=== PATIENT | male | born 1935 | race Caucasian/White ===

== ENCOUNTER 2016-09-24 11:17 | Emergency (ER) | payer MEDICARE, MEDICAID ==
[~2016-09-24] VITALS: Wt 52.2 kg
[~2016-09-24 11:17] MED LIST: BLOOD PRESSURE; TYLENOL
--- NOTE | 2016-09-24 12:17 | ERD ---
ER Documentation Chief Complaint Date/Time DATE: 09/24/16 TIME: 12:00 Chief Complaint r eye possible foreign body, states from wind, unknown object HPI 81 y/o male presents to ED for right eye pain started last night. Patient stated that he was outside his house when he felt like a dust came to his eyes, then he ran inside his house wash it thoroughly with water. Right eye pain was described as achy non-radiating with a pain rate of 5/10 at this time. Denies changes in his vision, blurry vision. Denies headache, loss of consciousness, dizziness, blurry vision, changes in vision, photophobia, facial pain, ear pain, throat pain, difficulty swallowing, neck pain, shoulder pain, chest pain, cough, hemoptysis, abdominal pain, back pain, loss of appetite, nausea, vomiting, hematochezia, diarrhea, constipation, urinary symptoms, bladder and bowel incontinences, extremity weakness, extremity tenderness, numbness or tingling sensation, difficulty walking, recent travel, recent exposure to illness, recent antibiotic use in the last 3 months, fever, chills. Allergy: NKA PMH: Hypertension Medications: Diovan Surgery: Prostatectomy in 2008 Family history: Denies Primary Social History: Does not work at this time Denies smoking, use of alcohol, use of illegal drugs. ROS All systems reviewed and are negative except as per history of present illness. Medications Home Meds Reported Medications [Tylenol] TAB No Conflict Check 02/18/11 [Blood Pressure] TAB No Conflict Check 02/18/11 Allergies Allergies: Coded Allergies: No Known Drug Allergies (Verified Allergy, Mild, 10/12/15) PMhx/Soc History of Surgery: Yes (PROSTATE SURGERY) Anesthesia Reaction: No Hx Neurological Disorder: No Hx Respiratory Disorders: No Hx Cardiac Disorders: Yes (HTN) Hx Psychiatric Problems: No Hx Miscellaneous Medical Probl: No Hx Alcohol Use: Yes (ON OCCASSION) Hx Substance Use: No Hx Tobacco Use: Yes (CIGARETTES 1 PPD) Smoking Status: Current some day smoker Physical Exam Vitals Vital Signs Date Time Temp Pulse Resp B/P Pulse Ox O2 Delivery O2 Flow Rate FiO2 09/24/16 11:24 98.1 88 20 174/75 95 Physical Exam CONSTITUTIONAL: Well-appearing; well-nourished; in no apparent distress. HEAD: Normocephalic; atraumatic. EYES: Conjunctiva clear, sclera non-icteric, EOM intact. PERRL. No conjunctival injection. Ears: Hearing intact. EACs clear, TMs non-bulging, non-inflamed, translucent & mobile, ossicles normal appearance, No obstructions, no erythema, no discharges Nose: No obstructions. No polyps. No external lesions. Mucosa non-inflamed. No external lesions, septum and turbinates normal. No rhinorrhea. No discharges. Frontal sinus is non-tender to palpation. Maxillary sinus is non-tender to palpation. MOUTH: Moist mucous membranes, no lesion, no obstructions, no vesicles, no thrush, patent airway Throat: Uvula in midline. Right tonsil is +1 with no erythema, no exudate. Left tonsil is +1 with no erythema, no exudate. Tolerating secretions well. Good gag reflex. Patent airway. Neck: Supple, without lesions, bruits, or adenopathy. No mass. Thyroid non- enlarged and non-tender to palpation. CHEST: Symmetrical chest. Respirations even and not labored. No retractions noted. CARDIOVASCULAR: Normal S1, S2. RRR. No murmurs, gallops. RESPIRATORY: Normal chest excursion with respiration; breath sounds clear and equal bilaterally; no wheezes, rhonchi, or rales. Breathing even and unlabored. Speaking in clear, full, and complete sentences w/ ease. ABDOMEN: Normal bowel sounds normal. Soft, round, non-distended, non-guarding, no tenderness, no rebound, no organomegaly, no masses, no pulsating abdominal mass. No hernia. No peritoneal signs. : No CVA tenderness. BACK: Symmetrical shoulder. Spine is midline without deformity, tenderness. No evidence of trauma or deformity. PELVIS: Stable pelvis. No evidence of trauma or deformity. MUSCULOSKELETAL: Normal gait and station. No misalignment, asymmetry, crepitation, defects, tenderness, masses, effusions, decreased range of motion, instability, atrophy or abnormal strength or tone in the head, neck, spine, ribs , pelvis or extremities. No calf tenderness. NEUROVASCULAR: Distal pulses are present. Pedal pulse are present, equal, and normal. Capillary refills are < 2 seconds. NEUROLOGIC: Alert and oriented x4. Speaks full and clear sentences. Cranial Nerves II-XII normal. Sensation to pain, touch, and proprioception normal. Grossly unremarkable. No neurologic deficits. Romberg test is negative. PSYCHOLOGICAL: The patients mood and manner are appropriate. No hallucinations , delusions. Not SI. Not HI. Has the capacity to decide for self SKIN: Normal for age and ethnicity; warm; dry; good turgor; no apparent lesions or exudates. No rashes, hives, discoloration. Intact. Results 24 hrs Current Medications Medications (Trade) Dose Ordered Sig/Cayla Route PRN Reason Start Time Stop Time Status Last Admin Dose Admin Tetracaine HCl (Tetracaine 0.5% Oph) 1 drop ONCE ONCE RIGHT EYE 09/24/16 12:30 09/24/16 12:31 DC Fluorescein Sodium (Qqiyq-G-Vbyoa) 1 strip ONCE ONCE RIGHT EYE 09/24/16 12:30 09/24/16 12:31 DC Procedures/MDM Examination: Unremarkable examination. Please see eye examination. Disease process, medical treatment was explained to the patient and his . They verbalized understanding and agreed with the diagnostic tests, medical treatment, and follow-up care. Treatment: Visual acuity, fluorescein, tetracaine Eye examination: Tetracaine to right eye; fluorescein staining; Stuart lamp: Revealed uptake between 8:00 and 9:00. No signs of ulceration; no signs of globe rupture. Re-evaluation: Relieve the pain. Consultation: None Differential diagnosis: Eye pain versus foreign body versus conjunctivitis versus corneal abrasion Medical decision makin81 y/o male presents to ED for right eye pain started last night. Patient stated that he was outside his house when he felt like a dust came to his eyes, then he ran inside his house wash it thoroughly with water. Right eye pain was described as achy non-radiating with a pain rate of 5 /10 at this time. Denies changes in his vision, blurry vision. Patient's complaint, presentation, my physical findings, my eye examination are consistent with my final diagnosis of Corneal abrasion. Medications prescribed are the following: Bleph-10 ophthalmic drops Patient and family member are made aware of the side effects and adverse reactions of the medications prescribed. Instructed on when to seek emergent and medical attention in case allergic/anaphylactic reactions or severe side effects and or adverse reactions to medications. Patient and family member verbalized understanding. Patient instructed Instructed to follow-up with his PCP in 24-48 hours. Instructed to Call 911 for chest pain, shortness of breath. Advised to come back here in ED as soon as possible for severity of symptoms which includes but not limited to: any new symptoms; shortness of breath/difficulty of breathing; cardiovascular changes; severe gastrointestinal symptoms; signs and symptoms of bleeding and or infection; signs of compartment syndrome/neurovascular changes; neurological changes/deficits. Patient and family member verbalized understanding. Upon discharge, patient is alert and oriented x 4, speaks full and clear sentences, denies pain, has no neurological deficits, has no neurovascular deficits, difficulty of breathing. Breathing even and unlabored. Lung sounds are clear to auscultation. Not in distress. Appears comfortable. Ambulatory with steady gait. Appears satisfied with care provided here in ED. Departure Diagnosis: Primary Impression: Corneal abrasion Encounter type: initial encounter Laterality: right Qualified Code: S05.01XA - Corneal abrasion, right, initial encounter Condition: Good Additional Instructions: Follow-up with PCP in 24-48 hours. PCP to refer patient to an eyelet maker if symptoms get worse. MAHNAZ DIAS Sep 24, 2016 12:17
[2016-09-24] MEDS ORDERED: FLUORESCEIN STRIP RIGHT EYE ONE (12:30)
[2016-09-24] MEDS ORDERED: TETRACAINE 0.5% 15 ML OPH RIGHT EYE ONE (12:30)
[2016-09-24] MEDS ORDERED: SULF15DR19 RIGHT EYE (12:41)
== END 2016-09-24 12:50 | disposition home or self-care (01) ==
LOC: FTE 11:17
DX: S05.01XA Injury of conjunctiva and corneal abrasion without foreign body, right eye, initial encounter (principal); I10 Essential (primary) hypertension; F17.210 Nicotine dependence, cigarettes, uncomplicated; X58.XXXA Exposure to other specified factors, initial encounter; Y92.9 Unspecified place or not applicable
CPT/HCPCS: 99283

== ENCOUNTER 2017-01-30 11:41 | Emergency (ER) | payer MEDICARE, OTHER ==
[~2017-01-30] VITALS: Ht 160 cm; Wt 49.0 kg
[~2017-01-30 11:41] MED LIST changes: +SULF15DR19 RIGHT EYE
[2017-01-30 12:11] VITALS: Ht 160 cm; Wt 49.0 kg
[2017-01-30] MEDS ORDERED: SOD CHLORIDE 0.9% 1,000 ML IV STA (12:51)
[2017-01-30 13:04] LABS: ADD SCAN DIFF NO
[2017-01-30 13:05] LABS: BASOPHIL # 0.1 10^3/ul (0.0-0.1); BASOPHILS % 0.7 % (0.0-2.0); EOSINOPHILS # 0.2 10^3/ul (0.0-0.5); EOSINOPHILS % 2.1 % (0.0-7.0); HEMATOCRIT 44.7 % (42.0-52.0); HEMOGLOBIN 14.7 g/dl (14.0-18.0); LYMPHOCYTES # 1.1 10^3/ul (0.8-2.9); MEAN CORPUSCULAR HEMOGLOBIN 30.2 pg (29.0-33.0); MEAN CORPUSCULAR HGB CONC 32.9 g/dl (32.0-37.0); MEAN PLATELET VOLUME 8.9 fl (7.4-10.4); MONOCYTE # 0.9 10^3/ul (0.3-0.9); MONOCYTES % 9.8 % (0.0-11.0); NEUTROPHIL # 6.8 10^3/ul (1.6-7.5); NEUTROPHILS % 74.9 % (39.0-77.0); PLATELET COUNT 358 10^3/UL (140-415); RED BLOOD COUNT 4.86 10^6/ul (4.70-6.10); RED CELL DISTRIBUTION WIDTH 13.4 % (11.5-14.5); WHITE BLOOD COUNT 9.1 10^3/ul (4.8-10.8)
[2017-01-30] MEDS ORDERED: BENHCT2012 PO (13:22)
[2017-01-30 13:23] LABS: ALBUMIN 4.5 g/dl (3.3-4.9); ALBUMIN/GLOBULIN RATIO 1.12; BILIRUBIN,INDIRECT 0.2 mg/dl (0-1.1); BILIRUBIN,TOTAL 0.2 mg/dl (0.2-1.3); CALCIUM 9.6 mg/dl (8.4-10.2); CREATININE 0.97 mg/dl (0.61-1.24); TOTAL PROTEIN 8.5 g/dl (6.1-8.1)
[2017-01-30] MEDS ORDERED: PENT400T2 PO (13:23)
[2017-01-30] MEDS ORDERED: METO50TA16 PO (13:23)
[2017-01-30] MEDS ORDERED: MELO-109 PO (13:23)
[2017-01-30] MEDS ORDERED: DONE5TAB32 PO (13:23)
[2017-01-30] MEDS ORDERED: OMEP20CA16 PO (13:24)
--- NOTE | 2017-01-30 13:28 | RADRPT ---
PROCEDURE: XR Chest. CLINICAL INDICATION: Chest pain TECHNIQUE: Single frontal view of the chest was obtained. COMPARISON: None FINDINGS: The heart is within normal limits. The thoracic aorta is calcified. The lungs are clear. There is no pleural effusion or pneumothorax. RPTAT: AA IMPRESSION: No acute disease. Calcified aorta consistent with atherosclerotic disease. .Davis Harris MD, MD Date Time Electronically viewed and signed by .Davis Harris MD, on 01/30/2017 13:28 .S/
[2017-01-30 13:34] LABS: TROPONIN-I 0.016 ng/ml (0.00-0.12)
--- NOTE | 2017-01-30 14:54 | ERD ---
ER Documentation Chief Complaint Date/Time DATE: 01/30/17 TIME: 12:45 Chief Complaint fever, diaphretic, cough, congestion & headache x10 days HPI 81-year-old male history of hypertension and prostatism ambulatory to the ED complaining of a 5 day history of subjective fevers with sweats, chest congestion and cough productive of greenish sputum. He denies chest pain, palpitation, shortness of breath, PND, orthopnea or exertional dyspnea. Anorexia with decreased oral intake but no abdominal pain, nausea, vomiting, diarrhea or constipation. No hematemesis, hematochezia or melanotic stools. No leg pain or swelling. Mild nasal congestion but no purulent rhinorrhea. No odynophagia or dysphagia. No dysuria, polyuria or hematuria. No relieving or exacerbating factors. No ill contacts or recent travel. In triage complained of headache but currently denies headache, visual changes, focal weakness or numbness. No neck or back pain. ROS All systems reviewed and are negative except as per history of present illness. Medications Home Meds Active Scripts Azithromycin* (Zithromax*) 250 Mg Tablet, 250 MG PO .ZPACK DIRECTED, #6 TAB TAKE 500 MG (2 TABS) THE FIRST DAY THEN 250 MG (1 TAB) DAYS 2-5 Prov:ALEK CHARLES MD 01/30/17 Reported Medications Omeprazole* (Omeprazole*) 20 Mg Capsule.dr, 20 MG PO DAILY, #30 CAP 01/30/17 Donepezil* (Aricept*) 5 Mg Tablet, 5 MG PO DAILY, TAB 01/30/17 Meloxicam* (Meloxicam*) 7.5 Mg Tablet, 7.5 MG PO DAILY, #30 TAB 01/30/17 Metoprolol Succinate* (Toprol XL*) 50 Mg Tab.er.24h, 50 MG PO DAILY, #30 TAB 01/30/17 Pentoxifylline* (Pentoxifylline*) 400 Mg Tablet.sa, 400 MG PO TID, TAB 01/30/17 Olmesartan-Hydrochlorothiazide (Benicar HCT) 20-12.5 Mg Tablet, 2 TAB PO DAILY, #30 TAB 01/30/17 Discontinued Reported Medications [Tylenol] TAB No Conflict Check 02/18/11 [Blood Pressure] TAB No Conflict Check 02/18/11 Discontinued Scripts Sulfacetamide Sodium* (Bleph-10*) 10%-15 Ml Opht Drops, 1 DROP RIGHT EYE Q2H for 7 Days, #1 EA Prov:MAHNAZ DIAS 09/24/16 Allergies Allergies: Coded Allergies: No Known Drug Allergies (Verified Allergy, Mild, 10/12/15) PMhx/Soc Reviewed in chart, as per HPI History of Surgery: Yes (PROSTATE SURGERY) Anesthesia Reaction: No Hx Neurological Disorder: No Hx Respiratory Disorders: No Hx Cardiac Disorders: Yes (HTN) Hx Psychiatric Problems: No Hx Miscellaneous Medical Probl: No Hx Alcohol Use: Yes (ON OCCASSION) Hx Substance Use: No Hx Tobacco Use: Yes (CIGARETTES 1 PPD) Smoking Status: Current every day smoker FmHx No stroke or cancer Physical Exam Vitals Vital Signs Date Time Temp Pulse Resp B/P Pulse Ox O2 Delivery O2 Flow Rate FiO2 01/30/17 15:53 97.9 97 18 169/98 98 Room Air 01/30/17 14:00 102 18 171/94 98 High Flow 01/30/17 12:11 97.9 126 20 132/92 95 Physical Exam Const: Alert, No acute distress Head: Atraumatic Eyes: CLIFF, EOMI, Normal Conjunctiva ENT: Normal External Ears, Nose and Mouth. Neck: Full range of motion. No JVD. No lymphadenopathy or tenderness. Resp: Breath sounds are equal bilaterally. Rare, scattered rhonchi but no wheezes or rales. Cardio: Tachycardia. Regular rate and rhythm, no murmurs Abd: Soft, non tender, non distended. Normal bowel sounds no masses or abnormal pulsations. No rebound or guarding. Skin: No petechiae or rashes Back: No midline or flank tenderness Ext: No cyanosis, or edema. No calf swelling or tenderness. Neur: Awake and alert. No focal deficit observed. Psych: Normal Mood and Affect Result Diagram: 01/30/17 1255 01/30/17 1255 Results 24 hrs Laboratory Tests Test 01/30/17 12:55 White Blood Count 9.110^3/ul Red Blood Count 4.8610^6/ul Hemoglobin 14.7g/dl Hematocrit 44.7% Mean Corpuscular Volume 92.0fl Mean Corpuscular Hemoglobin 30.2pg Mean Corpuscular Hemoglobin Concent 32.9g/dl Red Cell Distribution Width 13.4% Platelet Count 16358^3/UL Mean Platelet Volume 8.9fl Neutrophils % 74.9% Lymphocytes % 12.0% Monocytes % 9.8% Eosinophils % 2.1% Basophils % 0.7% Nucleated Red Blood Cells % 0.0/100WBC Neutrophils # 6.810^3/ul Lymphocytes # 1.110^3/ul Monocytes # 0.910^3/ul Eosinophils # 0.210^3/ul Basophils # 0.110^3/ul Nucleated Red Blood Cells # 0.010^3/ul Sodium Level 144mmol/L Potassium Level 4.0mmol/L Chloride Level 104mmol/L Carbon Dioxide Level 30mmol/L Anion Gap 14 Blood Urea Nitrogen 16mg/dl Creatinine 0.97mg/dl Glucose Level 102mg/dl Calcium Level 9.6mg/dl Total Bilirubin 0.2mg/dl Direct Bilirubin 0.00mg/dl Indirect Bilirubin 0.2mg/dl Aspartate Amino Transf (AST/SGOT) 23IU/L Alanine Aminotransferase (ALT/SGPT) 33IU/L Alkaline Phosphatase 92IU/L Troponin I 0.016ng/ml Total Protein 8.5g/dl Albumin 4.5g/dl Globulin 4.00g/dl Albumin/Globulin Ratio 1.12 Current Medications Medications (Trade) Dose Ordered Sig/Cayla Route PRN Reason Start Time Stop Time Status Last Admin Dose Admin Sodium Chloride (NS) 1,000 ml @ 1,000 mls/hr Q1H STAT IV 01/30/17 12:51 01/30/17 13:50 DC 01/30/17 12:57 EKG: TIME: 12:57. Sinus tachycardia with PACs. Nonspecific T-wave changes. LVH. No acute ST segment elevation or depression. EP Interpretation: Abnormal EKG. EKG: TIME: 14:31. Sinus rhythm with sinus arrhythmia. Ventricular rate 97. LVH with repull. No acute ST segment elevation or depression. No axis deviation EP Interpretation: Abnormal EKG. IMAGING: PROCEDURE: XR Chest. CLINICAL INDICATION: Chest pain TECHNIQUE: Single frontal view of the chest was obtained. COMPARISON: None FINDINGS: The heart is within normal limits. The thoracic aorta is calcified. The lungs are clear. There is no pleural effusion or pneumothorax. RPTAT: AA IMPRESSION: No acute disease. Calcified aorta consistent with atherosclerotic disease. .Davis Harris MD, MD Date Time Electronically viewed and signed by .Davis Harris MD, on 01/30/2017 13: 28 .S/ Procedures/MDM DOCUMENTS REVIEWED: ED nurse, prior records REEXAMINATION/REEVALUATION: Time: 14:30. Doing well. Feels much better after normal saline 1 L. Lungs clear. Heart rate 95. SMOKING CESSATION: Over 3 minutes were spent in smoking cessation counseling. Discussed increased risks of stroke, vascular disease, OR and cancer as well as multiple strategies for cessation including nicotine replacement medications. MEDICAL DECISION MAKIN-year-old male history of hypertension and prostatism ambulatory to the ED complaining of a 5 day history of subjective fevers with sweats, chest congestion and cough productive of greenish sputum. No chest pain, ischemic EKG changes, elevated troponin or evidence of acute coronary syndrome. Sinus tachycardia improved with intravenous hydration. No radiographic evidence of pneumonia or pneumothorax. Doubt pulmonary embolism. No hypoxia, bronchospasm or wheezing. Presentation consistent with an acute febrile illness possibly viral versus bacterial bronchitis. An occult malignancy is considered especially in light of his long smoking history, further workup indicated if symptoms do not resolve after trial of oral antibiotics. Stable for discharge with precautionary instructions and outpatient follow-up as counseled. Counseled patient regarding diagnostic workup, diagnosis and need for followup. Understands to return to ED if symptoms recur, worsen or any other concerns. Departure Diagnosis: Primary Impression: Cough Additional Impressions: Bronchitis Uncontrolled hypertension Condition: Stable (Improved) ALEK CHARLES MD Jan 30, 2017 14:50
[2017-01-30] MEDS ORDERED: AZIT250T94 PO (14:55)
[2017-01-30 15:53] VITALS: BP 169/98; PULSE 97; RESP 18; TEMP 97.9
== END 2017-01-30 15:54 | disposition home or self-care (01) ==
LOC: E/R 11:41
DX: R05 Cough (principal); J20.9 Acute bronchitis, unspecified; I10 Essential (primary) hypertension; R40.2142 Coma scale, eyes open, spontaneous, at arrival to emergency department; R40.2252 Coma scale, best verbal response, oriented, at arrival to emergency department; R40.2362 Coma scale, best motor response, obeys commands, at arrival to emergency department; F17.210 Nicotine dependence, cigarettes, uncomplicated
CPT/HCPCS: 71010; 80053; 84484; 85025; 93005; 99285; J7030

== ENCOUNTER 2017-11-12 13:09 | Emergency (ER) | END 2017-11-12 15:15 | disposition left against medical advice (07) ==

== ENCOUNTER 2018-02-03 07:56 | Emergency (ER) | END 2018-02-03 11:55 | disposition home or self-care (01) ==

== ENCOUNTER 2018-03-08 09:19 | Emergency (ER) | END 2018-03-08 12:15 | disposition home or self-care (01) ==

== ENCOUNTER 2018-10-28 11:16 | Inpatient (IN) | payer MEDICARE, OTHER ==
[~2018-10-28] VITALS: Ht 152.4 cm; Wt 57.3 kg
[~2018-10-28 11:16] MED LIST changes: +ACET500C5 PO; +AZIT250T PO; +BENHCT2012 PO; -BLOOD PRESSURE; +DONE5TAB53 PO; +MELO7.5T38 PO; +METO-319 PO; +OMEP20CA16 PO; +PENT400T9 PO; -SULF15DR19 RIGHT EYE; +TRAM50TA2 PO; -TYLENOL
[2018-10-28 11:19] VITALS: Ht 152.4 cm; Wt 57.3 kg
[2018-10-28] MEDS ORDERED: SOD CHLORIDE 0.9% 1,000 ML IV STA (11:32)
[2018-10-28] MEDS ORDERED: KETOROLAC 15 MG INJ IV STA (11:32)
[2018-10-28] MEDS ORDERED: HYDROmorphONE 2 MG/ML SYG IV STA (13:52)
[2018-10-28] MEDS ORDERED: ONDANSETRON 4 MG INJ IV PRN (14:00)
[2018-10-28] MEDS ORDERED: ACETAMINOPHEN 325 MG TAB PO PRN (14:00)
--- NOTE | 2018-10-28 14:01 | ERD ---
ER Documentation Chief Complaint Chief Complaint Left leg pain, calf pain started suddenly this morning HPI Patient is an 83-year-old male with hypertension who presents with left-sided ankle and calf pain. He was brought in by ambulance. He said the pain started today. He said that the pain is severe in the left lower extremity. He has had no treatment as of yet. The pain is constant. ROS All systems reviewed and are negative except as per history of present illness. Medications Home Meds Active Scripts Acetaminophen* (Tylophen*) 500 Mg Capsule, 1 CAP PO Q6H PRN for PAIN AND OR ELEVATED TEMP, #30 CAP Prov:MARIBEL DUVALL PA-C 03/08/18 Tramadol HCl (Tramadol HCl) 50 Mg Tablet, 50 MG PO Q6 PRN for PAIN, #20 TAB Prov:MARIBEL DUVALLC 03/08/18 Meloxicam* (Meloxicam*) 7.5 Mg Tablet, 7.5 MG PO DAILY, #30 TAB Prov:CAPRICE LIVINGSTONC 02/03/18 Azithromycin* (Zithromax*) 250 Mg Tablet, 250 MG PO .ZPACK DIRECTED, #6 TAB TAKE 500 MG (2 TABS) THE FIRST DAY THEN 250 MG (1 TAB) DAYS 2-5 Prov:ALEK CHARLES MD 01/30/17 Reported Medications Omeprazole* (Omeprazole*) 20 Mg Capsule.dr, 20 MG PO DAILY, #30 CAP 01/30/17 Donepezil* (Aricept*) 5 Mg Tablet, 5 MG PO DAILY, TAB 01/30/17 Meloxicam* (Meloxicam*) 7.5 Mg Tablet, 7.5 MG PO DAILY, #30 TAB 01/30/17 Metoprolol Succinate* (Toprol XL*) 50 Mg Tab.er.24h, 50 MG PO DAILY, #30 TAB 01/30/17 Pentoxifylline* (Pentoxifylline*) 400 Mg Tablet.sa, 400 MG PO TID, TAB 01/30/17 Olmesartan-Hydrochlorothiazide (Benicar HCT) 20-12.5 Mg Tablet, 2 TAB PO DAILY, #30 TAB 01/30/17 Allergies Allergies: Coded Allergies: No Known Drug Allergies (Verified Allergy, Mild, 10/12/15) PMhx/Soc History of Surgery: Yes (PROSTATE SURGERY) Anesthesia Reaction: No Hx Neurological Disorder: No Hx Respiratory Disorders: No Hx Cardiac Disorders: Yes (HTN) Hx Psychiatric Problems: No Hx Miscellaneous Medical Probl: No Hx Alcohol Use: Yes (ON OCCASSION) Hx Substance Use: No Hx Tobacco Use: Yes (20 CIGS/DAY) Smoking Status: Current every day smoker FmHx Family History: No diabetes Physical Exam Vitals Vital Signs Date Temp Pulse Resp B/P (MAP) Pulse Ox O2 O2 Flow FiO2 Time Delivery Rate 10/28/18 98.1 80 18 150/90 100 11:19 (110) Physical Exam Const: No acute distress Head: Atraumatic Eyes: Normal Conjunctiva ENT: Normal External Ears, Nose and Mouth. Neck: Full range of motion. No meningismus. Resp: Clear to auscultation bilaterally Cardio: Regular rate and rhythm, no murmurs Abd: Soft, non tender, non distended. Normal bowel sounds Skin: No petechiae or rashes Back: No midline or flank tenderness Ext: Unable to palpate a dorsalis pedis pulse to the left foot, capillary refill is sluggish on the left foot Neur: Awake and alert Psych: Normal Mood and Affect Result Diagram: 10/28/18 1204 10/28/18 1204 Results 24 hrs Laboratory Tests Test 10/28/18 12:04 White Blood Count 11.6 10^3/ul Red Blood Count 4.71 10^6/ul Hemoglobin 13.9 g/dl Hematocrit 42.6 % Mean Corpuscular Volume 90.4 fl Mean Corpuscular Hemoglobin 29.5 pg Mean Corpuscular Hemoglobin Concent 32.6 g/dl Red Cell Distribution Width 13.2 % Platelet Count 191 10^3/UL Mean Platelet Volume 9.9 fl Immature Granulocytes % 0.500 % Neutrophils % 88.0 % Lymphocytes % 6.7 % Monocytes % 4.2 % Eosinophils % 0.3 % Basophils % 0.3 % Nucleated Red Blood Cells % 0.0 /100WBC Immature Granulocytes # 0.060 10^3/ul Neutrophils # 10.2 10^3/ul Lymphocytes # 0.8 10^3/ul Monocytes # 0.5 10^3/ul Eosinophils # 0.0 10^3/ul Basophils # 0.0 10^3/ul Nucleated Red Blood Cells # 0.0 10^3/ul Sodium Level 140 mmol/L Potassium Level 5.1 mmol/L Chloride Level 103 mmol/L Carbon Dioxide Level 28 mmol/L Anion Gap 9 Blood Urea Nitrogen 27 mg/dl Creatinine 1.62 mg/dl Est Glomerular Filtrat Rate mL/min mL/min Glucose Level 123 mg/dl Calcium Level 9.5 mg/dl Current Medications Medications Dose Sig/Cayla Start Time Status Last (Trade) Ordered Route PRN Stop Time Admin Dose Reason Admin Sodium 1,000 ml @ Q1H STAT 10/28/18 DC 10/28/18 Chloride 1,000 mls/hr IV 11:32 10/28/18 12:00 12:31 Ketorolac 15 mg ONCE STAT 10/28/18 DC 10/28/18 Tromethamine IV 11:32 10/28/18 12:00 (Toradol) 11:35 Ondansetron 4 mg BRIDGE ORDER 10/28/18 HCl (Zofran PRN IV 14:00 10/29/18 Inj) NAUSEA/VOMITI 13:59 NG 650 mg ER BRIDGE 10/28/18 Acetaminophen PRN PO 14:00 10/29/18 (Tylenol .MILD PAIN 13:59 Tab) 1-3 OR TEMP 1 mg ONCE STAT 10/28/18 DC Hydromorphone IV 13:52 10/28/18 HCl 13:54 (Dilaudid) Procedures/MDM Arterial ultrasound read by radiology shows no DP pulse and weak PT pulse. Smoking Cessation Therapy: Pt. was lectured for greater than 3 minutes on the health risks of continued smoking and the benefits of cessation. Patient is a 83-year-old male with hypertension and smoking who presents with left leg pain. I believe he is having acute arterial insufficiency with claudication. The patient will need vascular consultation. I have reached out to Dr. Canseco from vascular surgery via phone and [employer]. The patient will be admitted to the care of Dr. Hughes to a medical surgical bed. The patient has required narcotic pain medication to help control his pain. Departure Diagnosis: Primary Impression: Arterial insufficiency Additional Impressions: Pain of left leg Claudication Condition: ANTHONY Yao MD Oct 28, 2018 14:01
[2018-10-28] MEDS ORDERED: HEPARIN 1000 UNITS/ML 10 ML INJ IV PRN ×2 (15:00)
[2018-10-28] MEDS ORDERED: HEPARIN 1000 UNITS/ML 10 ML INJ IV ONE (15:00)
[2018-10-28] MEDS ORDERED: NACL 0.9% 3 ML SYG IV SCH (15:30)
--- NOTE | 2018-10-28 15:34 | HP ---
Date/Time of Note Date/Time of Note DATE: 10/28/18 TIME: 15:19 Assessment/Plan VTE Prophylaxis Pharmacological prophylaxis: heparin Lines/Catheters IV Catheter Type (from Nrs): Peripheral IV Assessment/Plan Hospital Course This is an 83-year-old male with a history of hypertension and tobacco use disorder who presents with acute left lower extremity ischemia Acute limb ischemia: -JUANJO is 0.3 and he is having rest pain. - I have started him on a heparin drip. CT angiography -Continue aspirin - I have contacted Jack Piña, Jeanne, and Regis and all are unfortunately unable to see the patient today. I am attempting to find another vascular surgeon to see him but have so far been unsuccessful MARTHA: - Hold further NSAIDs - Monitor creatinine Hypertension: - Hold home meds for now Result Diagram: 10/28/18 1204 10/28/18 1204 Results 24hrs Laboratory Tests Test 10/28/18 12:04 White Blood Count 11.6 #H Red Blood Count 4.71 Hemoglobin 13.9 L Hematocrit 42.6 Mean Corpuscular Volume 90.4 Mean Corpuscular Hemoglobin 29.5 Mean Corpuscular Hemoglobin Concent 32.6 Red Cell Distribution Width 13.2 Platelet Count 191 # Mean Platelet Volume 9.9 Immature Granulocytes % 0.500 H Neutrophils % 88.0 H Lymphocytes % 6.7 L Monocytes % 4.2 Eosinophils % 0.3 Basophils % 0.3 Nucleated Red Blood Cells % 0.0 Immature Granulocytes # 0.060 H Neutrophils # 10.2 H Lymphocytes # 0.8 Monocytes # 0.5 Eosinophils # 0.0 Basophils # 0.0 Nucleated Red Blood Cells # 0.0 Sodium Level 140 Potassium Level 5.1 Chloride Level 103 Carbon Dioxide Level 28 Anion Gap 9 Blood Urea Nitrogen 27 H Creatinine 1.62 H Est Glomerular Filtrat Rate mL/min Glucose Level 123 Calcium Level 9.5 HPI/ROS Admit Date/Time Admit Date/Time Hx of Present Illness This is an 83-year-old male with a history of hypertension who presents with acute pain in his left foot and calf pain. He was in his usual state of health until today. He was walking when he began to feel the acute onset of throbbing pain in his foot which then progressed up into his calf came to the ED. Here he was found to have pulseless foot. He has never complained of claudication or any similar symptoms before. There is no trauma to his affected extremity he received Dilaudid and now feels much better. ROS Constitutional: no complaints, improved Eyes: no complaints ENT: no complaints Respiratory: no complaints Cardiovascular: no complaints Gastrointestinal: no complaints Genitourinary: no complaints Musculoskeletal: no complaints Skin: no complaints Neurologic: no complaints Endocrine: no complaints Lymphatic: no complaints Psychological: no complaints, nl mood/affect Immunologic: no complaints PMH/Family/Social Past Medical History Medical History: hypertension Medications Current Medications Ondansetron HCl (Zofran Inj) 4 mg BRIDGE ORDER PRN IV NAUSEA/VOMITING; Start 10/28/18 at 14:00; Stop 10/29/18 at 13:59 Acetaminophen (Tylenol Tab) 650 mg ER BRIDGE PRN PO .MILD PAIN 1-3 OR TEMP; Start 10/28/18 at 14:00; Stop 10/29/18 at 13:59 Heparin Sodium (Porcine) (Heparin (1000 Units/ml)) 4,400 unit PER PROTOCOL PRN IV aPTT<47; Start 10/28/18 at 15:00 Heparin Sodium (Porcine) (Heparin (1000 Units/ml)) 2,200 unit PER PROTOCOL PRN IV aPTT<47-57; Start 10/28/18 at 15:00 Heparin Sodium (Porcine) 250 ml @ 0 mls/hr PER PROTOCOL IV ; Start 10/28/18 at 15:00 Coded Allergies: No Known Drug Allergies (Verified Allergy, Mild, 10/12/15) Past Surgical History Past Surgical Hx: no surgical history Family History Significant Family History: no pertinent family hx Social History Alcohol Use: none Smoking Status: Current every day smoker Drug Use: none Exam/Review of Systems Vital Signs Vitals Vital Signs Date Temp Pulse Resp B/P (MAP) Pulse Ox O2 O2 Flow FiO2 Time Delivery Rate 10/28/18 98.1 84 17 175/97 100 Room Air 14:08 (123) Exam Exam Left foot is quite cold compared to right foot. I do not feel any PT or DP pulses there and Refill is slow Constitutional: alert, oriented, well developed Psych: no complaints, nl mood/affect Head: normocephalic, atraumatic Respiratory: clear to auscultation, normal air movement Cardiovascular: regular rate and rhythm, other Gastrointestinal: soft, nl liver, spleen, non-tender Musculoskeletal: nl extremities to inspection Neurological: VICE CHANCELLOR II-XII intact, nl mental status, nl speech, nl strength BLANCA RANDALL MD Oct 28, 2018 15:30
[2018-10-28] MEDS: HEPARIN 25000 UNITS/250 ML 250 ML IV SCH ×2 (15:47→22:45)
[2018-10-28 16:30] VITALS: BP 195/95; PULSE 91; RESP 16
[2018-10-28 16:47] VITALS: BP 195/95; PULSE 81; RESP 18
[2018-10-28 17:19] VITALS: BP 161/77; PULSE 80; RESP 17
[2018-10-28 19:56] VITALS: BP_SYST 168; BP_SYST 185; BP_DIAS 90; BP_DIAS 91; PULSE 81; RESP 18
[2018-10-28] MEDS ORDERED: SOD CHLORIDE 0.9% 100 ML ONE (20:22)
[2018-10-28] MEDS ORDERED: IODIXANOL LOCM 100 ML BTL ONE (20:22)
[2018-10-28] MEDS: PENTOXIFYLLINE (SR) 400 MG TAB PO SCH (21:19)
[2018-10-29 01:00] VITALS: BP 159/85; PULSE 71; RESP 18
[2018-10-29] MEDS: HEPARIN 25000 UNITS/250 ML 250 ML IV SCH ×2 (07:06→19:48)
[2018-10-29 08:01] VITALS: BP 166/81; PULSE 64; RESP 18
[2018-10-29] MEDS: ASPIRIN 81 MG TAB PO SCH (08:53)
[2018-10-29] MEDS: METOPROLOL (XL) 50 MG TAB PO SCH (08:53)
[2018-10-29] MEDS: PENTOXIFYLLINE (SR) 400 MG TAB PO SCH ×3 (08:53→21:02)
[2018-10-29] MEDS ORDERED: INFLUENZA VIRUS VACCINE 0.5 ML (DISPENSING) IM* ONE (09:00)
[2018-10-29] MEDS ORDERED: SOD CHLORIDE 0.9% 1,000 ML IV ONE (11:00)
[2018-10-29 14:31] VITALS: BP 143/67; PULSE 64; RESP 18
--- NOTE | 2018-10-29 14:38 | PN ---
Date/Time of Note Date/Time of Note DATE: 10/29/18 TIME: 14:37 Assessment/Plan VTE Prophylaxis Risk score (from Ns)>0 risk: 4 SCD applied (from Nsg): Yes Pharmacological prophylaxis: heparin Lines/Catheters IV Catheter Type (from Nrsg): Peripheral IV Assessment/Plan Hospital Course This is an 83-year-old male with a history of hypertension and tobacco use disorder who presents with acute left lower extremity ischemia Acute limb ischemia: -JUANJO is 0.3 and he is having rest pain. - Continue heparin drip. CT angiography shows stenosis in calf vessels, but no proximal obstruction -Continue aspirin - Pain control MARTHA: - Hold further NSAIDs - Monitor creatinine Hypertension: - Hold home meds for now Result Diagram: 10/28/18 2149 10/29/18 0444 Results 24hrs Laboratory Tests Test 10/28/18 21:49 10/29/18 04:44 10/29/18 12:43 White Blood Count 7.5 # Red Blood Count 4.08 L Hemoglobin 12.0 L Hematocrit 36.3 L Mean Corpuscular Volume 89.0 Mean Corpuscular Hemoglobin 29.4 Mean Corpuscular Hemoglobin Concent 33.1 Red Cell Distribution Width 13.5 Platelet Count 167 Mean Platelet Volume 10.2 Immature Granulocytes % 0.300 Neutrophils % 68.7 Lymphocytes % 20.2 Monocytes % 8.0 Eosinophils % 2.1 Basophils % 0.7 Nucleated Red Blood Cells % 0.0 Immature Granulocytes # 0.020 Neutrophils # 5.2 Lymphocytes # 1.5 Monocytes # 0.6 Eosinophils # 0.2 Basophils # 0.1 Nucleated Red Blood Cells # 0.0 Activated Partial Thromboplast Time 103.4 *H 135.9 *H 122.7 *H Prothrombin Time 14.8 Prothrombin Time Ratio 1.2 INR International Normalized Ratio 1.15 Sodium Level 138 Potassium Level 4.6 Chloride Level 104 Carbon Dioxide Level 27 Anion Gap 7 Blood Urea Nitrogen 27 H Creatinine 1.54 H Est Glomerular Filtrat Rate mL/min Glucose Level 86 Hemoglobin A1c 5.3 Calcium Level 8.7 Subjective 24 Hr Interval Summary Free Text/Dictation Still wtih pain in foot Seen by Dr Waite. No immediate need for surgery Continues on heparin Exam/Review of Systems Exam Vitals Vital Signs Date Temp Pulse Resp B/P (MAP) Pulse Ox O2 O2 Flow FiO2 Time Delivery Rate 10/29/18 98.2 64 18 143/67 96 14:31 (92) 10/28/18 Room Air 17:19 Intake and Output 10/28/18 10/28/18 10/29/18 1414:59 22:59 06:59 IntakeIntake Total 420 ml 105.7 ml BalanceBalance 420 ml 105.7 ml Exam Foot remains cold Sensory in tact Results Results 24hrs Laboratory Tests Test 10/28/18 21:49 10/29/18 04:44 10/29/18 12:43 White Blood Count 7.5 # Red Blood Count 4.08 L Hemoglobin 12.0 L Hematocrit 36.3 L Mean Corpuscular Volume 89.0 Mean Corpuscular Hemoglobin 29.4 Mean Corpuscular Hemoglobin Concent 33.1 Red Cell Distribution Width 13.5 Platelet Count 167 Mean Platelet Volume 10.2 Immature Granulocytes % 0.300 Neutrophils % 68.7 Lymphocytes % 20.2 Monocytes % 8.0 Eosinophils % 2.1 Basophils % 0.7 Nucleated Red Blood Cells % 0.0 Immature Granulocytes # 0.020 Neutrophils # 5.2 Lymphocytes # 1.5 Monocytes # 0.6 Eosinophils # 0.2 Basophils # 0.1 Nucleated Red Blood Cells # 0.0 Activated Partial Thromboplast Time 103.4 *H 135.9 *H 122.7 *H Prothrombin Time 14.8 Prothrombin Time Ratio 1.2 INR International Normalized Ratio 1.15 Sodium Level 138 Potassium Level 4.6 Chloride Level 104 Carbon Dioxide Level 27 Anion Gap 7 Blood Urea Nitrogen 27 H Creatinine 1.54 H Est Glomerular Filtrat Rate mL/min Glucose Level 86 Hemoglobin A1c 5.3 Calcium Level 8.7 Medications Medication Current Medications Heparin Sodium (Porcine) (Heparin (1000 Units/ml)) 4,400 unit PER PROTOCOL PRN IV aPTT<47; Start 10/28/18 at 15:00 Heparin Sodium (Porcine) (Heparin (1000 Units/ml)) 2,200 unit PER PROTOCOL PRN IV aPTT<47-57; Start 10/28/18 at 15:00 Heparin Sodium (Porcine) 250 ml @ 0 mls/hr PER PROTOCOL IV Last administered on 10/28/18at 22:45; Admin Dose 9.5 MLS/HR; Start 10/28/18 at 15:00 IV Flush (NS 3 ml) 3 ml PER PROTOCOL IV ; Start 10/28/18 at 15:30 Hydromorphone HCl (Dilaudid) 0.5 mg Q4H PRN IV .SEVERE PAIN 7-10; Start 10/28/18 at 15:30 Metoprolol Succinate (Toprol Xl) 50 mg DAILY PO Last administered on 10/29/18at 08:53; Admin Dose 50 MG; Start 10/29/18 at 09:00 Pentoxifylline (Trental) 400 mg TID PO Last administered on 10/29/18at 13:50; Admin Dose 400 MG; Start 10/28/18 at 21:00 Tramadol HCl (Ultram) 50 mg Q6H PRN PO PAIN; Start 10/28/18 at 16:00 Aspirin (Aspirin) 81 mg DAILY PO Last administered on 10/29/18at 08:53; Admin Dose 81 MG; Start 10/29/18 at 09:00 BLANCA RANDALL MD Oct 29, 2018 14:38
[2018-10-29 19:40] VITALS: BP 176/95; PULSE 66; RESP 18
[2018-10-30 01:11] VITALS: BP 178/90; PULSE 77; RESP 18
[2018-10-30 06:14] VITALS: BP 155/89; PULSE 82
[2018-10-30 07:10] VITALS: BP 190/100; PULSE 68; RESP 20
[2018-10-30] MEDS: PENTOXIFYLLINE (SR) 400 MG TAB PO SCH ×3 (08:13→21:39)
[2018-10-30] MEDS: METOPROLOL (XL) 50 MG TAB PO SCH (08:13)
[2018-10-30] MEDS: ASPIRIN 81 MG TAB PO SCH (08:14)
[2018-10-30] MEDS: AMLODIPINE 5 MG TAB PO SCH (08:14)
[2018-10-30 10:00] VITALS: BP 159/92; PULSE 66
[2018-10-30] MEDS: traMADol 50 MG TAB PO PRN ×2 (12:04→22:50)
--- NOTE | 2018-10-30 13:14 | PN ---
Date/Time of Note Date/Time of Note DATE: 10/30/18 TIME: 13:12 Assessment/Plan VTE Prophylaxis Risk score (from Nsg)>0 risk: 7 SCD applied (from Nsg): Yes Pharmacological prophylaxis: heparin Lines/Catheters IV Catheter Type (from Nrsg): Peripheral IV Assessment/Plan Hospital Course This is an 83-year-old male with a history of hypertension and tobacco use disorder who presents with L calf pain concerning for acute left lower extremity ischemia L calf pain: - Foot is now warm and seem well perfused - His calf muscle is now quite indurated and firm. I am worried about DVT or perhaps a bleed. STAT venous duplex and CT leg - Continue heparin drip for now PAD: -JUANJO is 0.3 and he is having rest pain. - CT angiography shows stenosis in calf vessels, but no proximal obstruction -Continue aspirin - Pain control MARTHA vs CKD: - Suspect this is baseline CKD given echogenicity seen on renal ultrasound. He has had no improvement with volume expansion. Negative for obstruction - Hold further NSAIDs - Monitor creatinine Hypertension: - Hold home meds for now Result Diagram: 10/28/18 2149 10/30/18 0421 Results 24hrs Laboratory Tests Test 10/29/18 19:21 10/30/18 04:21 10/30/18 08:56 10/30/18 09:00 Activated 91.9 *H 73.4 *H 68.6 H Partial Thromboplast Time Sodium Level 141 Potassium Level 4.8 Chloride Level 108 Carbon Dioxide Level 26 Anion Gap 7 Blood Urea Nitrogen 22 H Creatinine 1.50 H Est Glomerular Filtrat Rate mL/min Glucose Level 97 Calcium Level 8.9 Urine Color YELLOW Urine Clarity CLEAR Urine pH 5.0 Urine Specific [place] 1.013 Urine Ketones TRACE A Urine Nitrite NEGATIVE Urine Bilirubin NEGATIVE Urine Urobilinogen NEGATIVE Urine Leukocyte Esterase NEGATIVE Urine Microscopic RBC 7 H Urine Microscopic WBC 1 Urine Bacteria FEW A Urine Hemoglobin 3+ H Urine Random Creatinine 71.80 Urine Random Sodium 121 H Urine Glucose NEGATIVE Urine Total Protein NEGATIVE Subjective 24 Hr Interval Summary Free Text/Dictation Worsening pain and induration of L calf Exam/Review of Systems Exam Vitals Vital Signs Date Temp Pulse Resp B/P (MAP) Pulse Ox O2 O2 Flow FiO2 Time Delivery Rate 10/30/18 66 159/92 10:00 (114) 10/30/18 97.6 20 92 07:10 10/28/18 Room Air 17:19 Intake and Output 10/29/18 10/29/18 10/30/18 1414:59 22:59 06:59 IntakeIntake Total 1000 ml 564.3 ml 382.5 ml OutputOutput Total 850 ml BalanceBalance 1000 ml 564.3 ml -467.5 ml Exam L calf is now very firm and indurated Painful Foot is warm now, no sensory loss, full ROM Results Results 24hrs Laboratory Tests Test 10/29/18 19:21 10/30/18 04:21 10/30/18 08:56 10/30/18 09:00 Activated 91.9 *H 73.4 *H 68.6 H Partial Thromboplast Time Sodium Level 141 Potassium Level 4.8 Chloride Level 108 Carbon Dioxide Level 26 Anion Gap 7 Blood Urea Nitrogen 22 H Creatinine 1.50 H Est Glomerular Filtrat Rate mL/min Glucose Level 97 Calcium Level 8.9 Urine Color YELLOW Urine Clarity CLEAR Urine pH 5.0 Urine Specific [place] 1.013 Urine Ketones TRACE A Urine Nitrite NEGATIVE Urine Bilirubin NEGATIVE Urine Urobilinogen NEGATIVE Urine Leukocyte Esterase NEGATIVE Urine Microscopic RBC 7 H Urine Microscopic WBC 1 Urine Bacteria FEW A Urine Hemoglobin 3+ H Urine Random Creatinine 71.80 Urine Random Sodium 121 H Urine Glucose NEGATIVE Urine Total Protein NEGATIVE Medications Medication Current Medications Heparin Sodium (Porcine) (Heparin (1000 Units/ml)) 4,400 unit PER PROTOCOL PRN IV aPTT<47; Start 10/28/18 at 15:00 Heparin Sodium (Porcine) (Heparin (1000 Units/ml)) 2,200 unit PER PROTOCOL PRN IV aPTT<47-57; Start 10/28/18 at 15:00 Heparin Sodium (Porcine) 250 ml @ 0 mls/hr PER PROTOCOL IV Last administered on 10/29/18at 19:48; Admin Dose 7.5 MLS/HR; Start 10/28/18 at 15:00 IV Flush (NS 3 ml) 3 ml PER PROTOCOL IV ; Start 10/28/18 at 15:30 Hydromorphone HCl (Dilaudid) 0.5 mg Q4H PRN IV .SEVERE PAIN 7-10; Start 10/28/18 at 15:30 Metoprolol Succinate (Toprol Xl) 50 mg DAILY PO Last administered on 10/30/18at 08:13; Admin Dose 50 MG; Start 10/29/18 at 09:00 Pentoxifylline (Trental) 400 mg TID PO Last administered on 10/30/18 12:09; Admin Dose 400 MG; Start 10/28/18 at 21:00 Tramadol HCl (Ultram) 50 mg Q6H PRN PO PAIN Last administered on 10/30/18 12:04; Admin Dose 50 MG; Start 10/28/18 at 16:00 Aspirin (Aspirin) 81 mg DAILY PO Last administered on 10/30/18 08:14; Admin Dose 81 MG; Start 10/29/18 at 09:00 Amlodipine Besylate (Norvasc) 5 mg DAILY PO Last administered on 10/30/18 08:14; Admin Dose 5 MG; Start 10/30/18 at 09:00 BLANCA RANDALL MD Oct 30, 2018 13:14
[2018-10-30 13:30] VITALS: BP 155/89; PULSE 66; RESP 20
--- NOTE | 2018-10-30 13:57 | PN ---
Date/Time of Note Date/Time of Note DATE: 10/30/18 TIME: 13:56 Assessment/Plan Lines/Catheters IV Catheter Type (from Nrsg): Peripheral IV Assessment/Plan Assessment/Plan Left lower extremity ischemia Left leg is much warmer today There is strong Doppler signals in the dorsalis pedis artery Left leg is very tight and firm Left leg is tender to touch We will proceed with Doppler ultrasound venous to rule out DVT CT of the leg rule out bleeding or mass Plan for angiogram to evaluate peripheral vascular disease Subjective 24 Hr Interval Summary Constitutional: improved Pain Control: mild Exam/Review of Systems Vital Signs Vitals Vital Signs Date Temp Pulse Resp B/P (MAP) Pulse Ox O2 O2 Flow FiO2 Time Delivery Rate 10/30/18 98.6 66 20 155/89 93 13:30 (111) 10/28/18 Room Air 17:19 Intake and Output 10/29/18 10/29/18 10/30/18 1515:00 23:00 07:00 IntakeIntake Total 1000 ml 564.3 ml 382.5 ml OutputOutput Total 850 ml BalanceBalance 1000 ml 564.3 ml -467.5 ml Exam Eyes: nl conjunctiva, EOMI, nl lids, nl sclera ENMT: nl external ears & nose, nl lips & teeth, nl nasal mucosa & septum, mucosa pink and moist Neck: supple, non-tender Respiratory: clear to auscultation, normal air movement Cardiovascular: regular rate and rhythm, nl pulses Gastrointestinal: soft, nl liver, spleen, non-tender Musculoskeletal: nl extremities to inspection, nl gait and stance Results Result Diagram: 10/28/18 2149 10/30/18 0421 JAUN CHAVEZ MD Oct 30, 2018 13:57
[2018-10-30] MEDS ORDERED: HEPARIN 1000 UNITS/ML 10 ML INJ IV PRN ×3 (18:00)
[2018-10-30 19:17] VITALS: BP 176/91; PULSE 72; RESP 18
[2018-10-31] VITALS (54 sets, daily range): BP systolic 132–174; BP diastolic 70–87; PULSE 81–116; RESP 18–28
[2018-10-31] MEDS: HEPARIN 25000 UNITS/250 ML 250 ML IV SCH ×2 (04:24→20:20)
[2018-10-31] MEDS: hydrALAzine 20 MG INJ IV PRN ×2 (06:37→14:11)
[2018-10-31] MEDS: ASPIRIN 81 MG TAB PO SCH (08:57)
[2018-10-31] MEDS: METOPROLOL (XL) 50 MG TAB PO SCH (08:57)
[2018-10-31] MEDS: AMLODIPINE 5 MG TAB PO SCH (08:57)
[2018-10-31] MEDS: PENTOXIFYLLINE (SR) 400 MG TAB PO SCH ×3 (08:58→20:44)
[2018-10-31] MEDS ORDERED: MIDAZOLAM 1 MG/ML 2 ML INJ ONE (11:20)
[2018-10-31] MEDS ORDERED: FENTAnyl 50 MCG/ML VIAL ONE ×2 (11:20→13:02)
[2018-10-31] MEDS ORDERED: hydrALAzine 20 MG INJ ONE ×2 (11:41→11:52)
[2018-10-31] MEDS ORDERED: METOPROLOL 5 MG INJ ONE ×2 (11:43→11:46)
[2018-10-31] MEDS ORDERED: NITROGLYCERIN (IC) 100 MCG/ML INJ ONE ×2 (11:54→11:55)
[2018-10-31] MEDS ORDERED: IODIXANOL LOCM 100 ML BTL ONE (12:34)
[2018-10-31] MEDS ORDERED: SOD CHLORIDE 0.9% 500 ML ONE (12:34)
[2018-10-31] MEDS ORDERED: HEPARIN 1000 UNITS/NS (A-LINE) 1,000 ML ONE (12:34)
--- NOTE | 2018-10-31 12:56 | OPR ---
Date/Time of Note Date/Time of Note DATE: 10/31/18 TIME: 12:50 Operative Report Procedure Date: Oct 31, 2018 Preoperative Diagnosis Peripheral vascular disease Postoperative Diagnosis Peripheral vascular disease Operation/Procedure Performed Abdominal aortogram bilateral lower extremity runoff catheter introduction into the abdominal aorta ultrasound guidance into the central artery Petition and supervision of the abdominal aortogram Surgeon see signature line Outsoles Channel Opener None Anesthesia Type: MAC Estimated Blood Loss: minimal Transfusion none Specimen None Grafts/Implants none Complications none Pt Condition Post Procedure: stable Disposition: PACU Procedure Description he was placed supine position prepped and draped in usual sterile fashion timeout was called under ultrasonic guidance access was gained the right common femoral artery guidewire was advanced through without any difficulties riskmethods wire was advanced up into the aorta rim catheter was advanced into the aorta aortogram with bilateral iliac runoffs were performed I could not advance the catheter from the right to left secondary to severe tortuosity bilateral lower extremity runoff was done Physician supervision of the aortogram and the runoff revealed aorta normal Bilateral common iliac arteries normal Lateral internal iliac arteries normal Lateral external iliac arteries normal Bilateral common femoral arteries normal Biateral profunda is normal Bateral superficial femoral arteries with ratty disease not hemodynamically significant Bateral popliteal arteries with 20-30% stenosis Bilateral anterior tibial arteries patent with 30-40% disease but not hemodynamically significant Balteral peroneal and posterior tibial arteries 100% occluded At this time the sheath was removed and the right femoral artery was closed using a Perclose device Patient had Doppler signals in the left and right anterior tibial artery procedure was terminated This patient is currently being treated for a fluid collection in the left calf his creatinine is also 1.5 he would need possibly an intervention in the left lower extremity if there is ongoing signs of ischemia which he does not have at the present time however that should be done when his renal function has stabilized JAUN CHAVEZ MD Oct 31, 2018 12:56
[2018-10-31] MEDS ORDERED: FENTAnyl 50 MCG/ML VIAL IV ONE (13:00)
[2018-10-31] MEDS ORDERED: HYDROmorphONE 0.5 MG/0.5 ML SYG IV PRN (14:00)
--- NOTE | 2018-10-31 17:08 | PN ---
Date/Time of Note Date/Time of Note DATE: 10/31/18 TIME: 17:07 Assessment/Plan VTE Prophylaxis Risk score (from Nsg)>0 risk: 4 SCD applied (from Nsg): Yes Pharmacological prophylaxis: heparin Lines/Catheters IV Catheter Type (from Nrsg): Peripheral IV Assessment/Plan Hospital Course This is an 83-year-old male with a history of hypertension and tobacco use disorder who presents with L calf pain concerning for acute left lower extremity ischemia L calf pain: - Foot is now warm and seem well perfused - His calf muscle is now quite indurated and firm. Duplex negative for clot. CT showing fluid collection of unclear etiology - Continue heparin drip for now PAD: -JUANJO is 0.3 and he is having rest pain. - Angiography shows stenosis in calf vessels, but no proximal obstruction -Continue aspirin - Pain control MARTHA vs CKD: - Suspect this is baseline CKD given echogenicity seen on renal ultrasound. He has had no improvement with volume expansion. Negative for obstruction - Hold further NSAIDs - Monitor creatinine Hypertension: - Hold home meds for now Result Diagram: 10/31/18 0535 10/31/18 0544 Results 24hrs Laboratory Tests Test 10/31/18 00:11 10/31/18 05:35 10/31/18 05:44 10/31/18 07:19 Activated 86.2 *H 68.3 H Partial Thromboplast Time White Blood Count 10.6 # Red Blood Count 4.30 L Hemoglobin 12.5 L Hematocrit 38.3 L Mean Corpuscular Volume 89.1 Mean Corpuscular 29.1 Hemoglobin Mean Corpuscular 32.6 Hemoglobin Concent Red Cell Distribution 13.2 Width Platelet Count 169 Mean Platelet Volume 11.1 H Immature Granulocytes % 0.600 H Neutrophils % 77.4 H Lymphocytes % 12.4 L Monocytes % 9.1 Eosinophils % 0.0 Basophils % 0.5 Nucleated Red Blood 0.0 Cells % Immature Granulocytes # 0.060 H Neutrophils # 8.2 H Lymphocytes # 1.3 Monocytes # 1.0 H Eosinophils # 0.0 Basophils # 0.1 Nucleated Red Blood 0.0 Cells # Sodium Level 137 Potassium Level 4.6 Chloride Level 104 Carbon Dioxide Level 25 Anion Gap 8 Blood Urea Nitrogen 20 Creatinine 1.35 H Est Glomerular Filtrat Rate mL/min Glucose Level 122 Calcium Level 8.8 Subjective 24 Hr Interval Summary Free Text/Dictation Went for angiogram today. Shows occluded distal vessels Exam/Review of Systems Exam Vitals Vital Signs Date Temp Pulse Resp B/P (MAP) Pulse Ox O2 O2 Flow FiO2 Time Delivery Rate 10/31/18 100 21 162/82 96 Nasal 2.0 15:11 (108) Cannula 10/31/18 98.1 07:27 Intake and Output 10/30/18 10/30/18 10/31/18 1414:59 22:59 06:59 IntakeIntake Total 480 ml 322 ml 95.5 ml OutputOutput Total 500 ml 150 ml 200 ml BalanceBalance -20 ml 172 ml -104.5 ml Results Results 24hrs Laboratory Tests Test 10/31/18 00:11 10/31/18 05:35 10/31/18 05:44 10/31/18 07:19 Activated 86.2 *H 68.3 H Partial Thromboplast Time White Blood Count 10.6 # Red Blood Count 4.30 L Hemoglobin 12.5 L Hematocrit 38.3 L Mean Corpuscular Volume 89.1 Mean Corpuscular 29.1 Hemoglobin Mean Corpuscular 32.6 Hemoglobin Concent Red Cell Distribution 13.2 Width Platelet Count 169 Mean Platelet Volume 11.1 H Immature Granulocytes % 0.600 H Neutrophils % 77.4 H Lymphocytes % 12.4 L Monocytes % 9.1 Eosinophils % 0.0 Basophils % 0.5 Nucleated Red Blood 0.0 Cells % Immature Granulocytes # 0.060 H Neutrophils # 8.2 H Lymphocytes # 1.3 Monocytes # 1.0 H Eosinophils # 0.0 Basophils # 0.1 Nucleated Red Blood 0.0 Cells # Sodium Level 137 Potassium Level 4.6 Chloride Level 104 Carbon Dioxide Level 25 Anion Gap 8 Blood Urea Nitrogen 20 Creatinine 1.35 H Est Glomerular Filtrat Rate mL/min Glucose Level 122 Calcium Level 8.8 Medications Medication Current Medications Heparin Sodium (Porcine) 250 ml @ 0 mls/hr PER PROTOCOL IV Last administered on 10/31/18at 04:24; Admin Dose 10 MLS/HR; Start 10/28/18 at 15:00 IV Flush (NS 3 ml) 3 ml PER PROTOCOL IV ; Start 10/28/18 at 15:30 Hydromorphone HCl (Dilaudid) 0.5 mg Q4H PRN IV .SEVERE PAIN 7-10; Start 10/28/18 at 15:30 Metoprolol Succinate (Toprol Xl) 50 mg DAILY PO Last administered on 10/30/18 08:13; Admin Dose 50 MG; Start 10/29/18 at 09:00 Pentoxifylline (Trental) 400 mg TID PO Last administered on 10/30/18 21:39; Admin Dose 400 MG; Start 10/28/18 at 21:00 Tramadol HCl (Ultram) 50 mg Q6H PRN PO PAIN Last administered on 10/30/18 22:50; Admin Dose 50 MG; Start 10/28/18 at 16:00 Aspirin (Aspirin) 81 mg DAILY PO Last administered on 10/30/18 08:14; Admin Dose 81 MG; Start 10/29/18 at 09:00 Amlodipine Besylate (Norvasc) 5 mg DAILY PO Last administered on 10/30/18 08:14; Admin Dose 5 MG; Start 10/30/18 at 09:00 Heparin Sodium (Porcine) (Heparin (1000 Units/ml)) 4,000 unit PER PROTOCOL PRN IV aPTT<47; Start 10/30/18 at 18:00 Heparin Sodium (Porcine) (Heparin (1000 Units/ml)) 2,000 unit PER PROTOCOL PRN IV aPTT<47-57 Last administered on 10/30/18 17:56; Admin Dose 2,000 UNIT; Start 10/30/18 at 18:00 Hydralazine HCl (Apresoline) 10 mg Q4H PRN IV ELEVATED SYSTOLIC BP Last administered on 10/31/18 14:11; Admin Dose 10 MG; Start 10/31/18 at 06:30 Hydromorphone HCl (Dilaudid) 0.2 mg Q2 PRN IV PAIN LEVEL 1-5; Start 10/31/18 at 14:00 BLANCA RANDALL MD Oct 31, 2018 17:08
[2018-11-01 02:00] VITALS: BP 125/76; PULSE 104; RESP 19
[2018-11-01 07:16] VITALS: BP 166/99; PULSE 100; RESP 17
[2018-11-01] MEDS: AMLODIPINE 5 MG TAB PO SCH (08:20)
[2018-11-01] MEDS: PENTOXIFYLLINE (SR) 400 MG TAB PO SCH ×3 (08:20→20:54)
[2018-11-01] MEDS: METOPROLOL (XL) 50 MG TAB PO SCH (08:21)
[2018-11-01] MEDS: ASPIRIN 81 MG TAB PO SCH (09:50)
[2018-11-01 13:37] VITALS: BP 174/80; PULSE 89; RESP 20
--- NOTE | 2018-11-01 14:22 | RADRPT ---
Vent Rate: 75 bpm RR Interval: 0 msec CA Interval: 140 msec QRS Duration: 108 msec QT Interval: 410 msec QTC Interval: 457 msec P-R-T [place]: 68 - 11 - 9 degrees Normal sinus rhythm Moderate voltage criteria for LVH, may be normal variant Nonspecific T wave abnormality Abnormal ECG Electronically Signed By: Benedict Olivas
[2018-11-01] MEDS: hydrALAzine 20 MG INJ IV PRN (14:29)
--- NOTE | 2018-11-01 15:09 | PN ---
Date/Time of Note Date/Time of Note DATE: 11/01/18 TIME: 15:07 Assessment/Plan VTE Prophylaxis Risk score (from Nsg)>0 risk: 5 SCD applied (from Nsg): Yes Pharmacological prophylaxis: heparin Lines/Catheters IV Catheter Type (from Nrsg): Peripheral IV Assessment/Plan Hospital Course This is an 83-year-old male with a history of hypertension and tobacco use disorder who presents with L calf pain concerning for acute left lower extremity ischemia L calf pain: - Foot is now warm and seem well perfused - His calf muscle is now quite indurated and firm. Duplex negative for clot. CT showing fluid collection of unclear etiology, I asked IR to drain it but Dr Tay says he is unable to. I have asked Dr Duncan to consult - Discontinue heparin drip PAD: -JUANJO is 0.3 - Angiography shows stenosis in calf vessels, but no proximal obstruction -Continue aspirin, statin - Pain control MARTHA vs CKD: - Suspect this is baseline CKD given echogenicity seen on renal ultrasound. He has had no improvement with volume expansion. Negative for obstruction - Hold further NSAIDs - Monitor creatinine Hypertension: - Continue home meds Dc when able to ambualte Result Diagram: 11/01/18 1008 11/01/18 1008 Results 24hrs Laboratory Tests Test 10/31/18 18:19 11/01/18 01:54 11/01/18 09:25 11/01/18 10:08 Activated 28.9 94.4 *H 74.3 *H Partial Thromboplast Time White Blood Count 10.6 Red Blood Count 3.85 L Hemoglobin 11.4 L Hematocrit 34.5 L Mean Corpuscular Volume 89.6 Mean Corpuscular 29.6 Hemoglobin Mean Corpuscular 33.0 Hemoglobin Concent Red Cell Distribution 13.8 Width Platelet Count 171 Mean Platelet Volume 11.2 H Immature Granulocytes % 0.400 Neutrophils % 77.4 H Lymphocytes % 9.7 L Monocytes % 11.8 H Eosinophils % 0.1 Basophils % 0.6 Nucleated Red Blood 0.0 Cells % Immature Granulocytes # 0.040 H Neutrophils # 8.2 H Lymphocytes # 1.0 Monocytes # 1.3 H Eosinophils # 0.0 Basophils # 0.1 Nucleated Red Blood 0.0 Cells # Sodium Level 139 Potassium Level 4.4 Chloride Level 106 Carbon Dioxide Level 25 Anion Gap 8 Blood Urea Nitrogen 24 H Creatinine 1.44 H Est Glomerular Filtrat Rate mL/min Glucose Level 121 Calcium Level 8.5 Subjective 24 Hr Interval Summary Free Text/Dictation Angiogram shows adequate flow into foot, no intervention made. No extravasation to suspect active bleed. Heparin drip stopped at suggestion of Dr Waite Still complains of severe pain and induration of calf muscle Exam/Review of Systems Exam Vitals Vital Signs Date Temp Pulse Resp B/P (MAP) Pulse Ox O2 O2 Flow FiO2 Time Delivery Rate 11/01/18 98.0 89 20 174/80 95 13:37 (111) 11/01/18 Room Air 07:16 11/01/18 2.0 02:00 Intake and Output 10/31/18 10/31/18 11/01/18 1414:59 22:59 06:59 IntakeIntake Total 52 ml 360 ml OutputOutput Total 100 ml 200 ml 300 ml BalanceBalance -48 ml 160 ml -300 ml Exam Foot is warm and seems adequately perfused. SILT Calf muscle belly remains tender and firm. Swollen through calf and ankle Results Results 24hrs Laboratory Tests Test 10/31/18 18:19 11/01/18 01:54 11/01/18 09:25 11/01/18 10:08 Activated 28.9 94.4 *H 74.3 *H Partial Thromboplast Time White Blood Count 10.6 Red Blood Count 3.85 L Hemoglobin 11.4 L Hematocrit 34.5 L Mean Corpuscular Volume 89.6 Mean Corpuscular 29.6 Hemoglobin Mean Corpuscular 33.0 Hemoglobin Concent Red Cell Distribution 13.8 Width Platelet Count 171 Mean Platelet Volume 11.2 H Immature Granulocytes % 0.400 Neutrophils % 77.4 H Lymphocytes % 9.7 L Monocytes % 11.8 H Eosinophils % 0.1 Basophils % 0.6 Nucleated Red Blood 0.0 Cells % Immature Granulocytes # 0.040 H Neutrophils # 8.2 H Lymphocytes # 1.0 Monocytes # 1.3 H Eosinophils # 0.0 Basophils # 0.1 Nucleated Red Blood 0.0 Cells # Sodium Level 139 Potassium Level 4.4 Chloride Level 106 Carbon Dioxide Level 25 Anion Gap 8 Blood Urea Nitrogen 24 H Creatinine 1.44 H Est Glomerular Filtrat Rate mL/min Glucose Level 121 Calcium Level 8.5 Medications Medication Current Medications IV Flush (NS 3 ml) 3 ml PER PROTOCOL IV ; Start 10/28/18 at 15:30 Hydromorphone HCl (Dilaudid) 0.5 mg Q4H PRN IV .SEVERE PAIN 7-10; Start 10/28/18 at 15:30 Metoprolol Succinate (Toprol Xl) 50 mg DAILY PO Last administered on 11/01/18 08:21; Admin Dose 50 MG; Start 10/29/18 at 09:00 Pentoxifylline (Trental) 400 mg TID PO Last administered on 11/01/18 13:14; Admin Dose 400 MG; Start 10/28/18 at 21:00 Tramadol HCl (Ultram) 50 mg Q6H PRN PO PAIN Last administered on 10/30/18 22:50; Admin Dose 50 MG; Start 10/28/18 at 16:00 Aspirin (Aspirin) 81 mg DAILY PO Last administered on 11/01/18 09:50; Admin Dose 81 MG; Start 10/29/18 at 09:00 Amlodipine Besylate (Norvasc) 5 mg DAILY PO Last administered on 11/01/18 08:20; Admin Dose 5 MG; Start 10/30/18 at 09:00 Hydralazine HCl (Apresoline) 10 mg Q4H PRN IV ELEVATED SYSTOLIC BP Last administered on 11/01/18 14:29; Admin Dose 10 MG; Start 10/31/18 at 06:30 Hydromorphone HCl (Dilaudid) 0.2 mg Q2 PRN IV PAIN LEVEL 1-5; Start 10/31/18 at 14:00 BLANCA RANDALL MD Nov 01, 2018 15:09
[2018-11-01] MEDS ORDERED: HEPARIN 1000 UNITS/ML 10 ML INJ IV PRN ×2 (20:00)
[2018-11-01] MEDS ORDERED: HEPARIN 1000 UNITS/ML 10 ML INJ IV ONE (20:00)
[2018-11-01 20:03] VITALS: BP 135/79; PULSE 91; RESP 18
[2018-11-01] MEDS: HYDROmorphONE 0.5 MG/0.5 ML SYG IV PRN (20:33)
--- NOTE | 2018-11-01 21:10 | CONS ---
Assessment/Plan Assessment/Plan Hospital Course (Demo Recall) This is an 83-year-old male with history of severe peripheral vascular disease and ischemic to left lower extremity. On physical examination as well as imaging there is no fluid collection in the area of concern. At this time I believe his pain and symptoms are directly secondary to ischemia. Vascular surgery has already restarted the heparin drip. At this time the patient does not have compartment syndrome but it is a concern that he can develop if the skin is not appropriately treated. Plan: Patient should be watched for compartment checks. If the pain and swelling continued to worsen vascular should be called to reevaluate ischemia. This was discussed directly with the nurses. If the patient formed compartment syndrome he will need fasciotomies by vascular. Once the heparin drip restart if there is a sudden increase in swelling and fluid collection/hematoma I will, reevaluate. No other recommendations from orthopedics at this time. Consultation Date/Type/Reason Admit Date/Time Date of Consultation: Nov 01, 2018 Reason for Consultation Left calf pain and swelling Date/Time of Note DATE: 11/01/18 TIME: 20:57 Hx of Present Illness 83-year-old male with multiple medical problems including severe peripheral vascular disease admitted to [facility] for left leg ischemia. He was found to have a cool foot with pain and decreased sensation. He was found to have Anterior tibial artery occludes above the ankle and the dorsalis pedis artery is occluded. Peroneal artery is occluded in the mid calf. Proximal posterior tibial artery is occluded with reconstitution of flow in the midcalf where the artery is patent into the foot. Vascular was consulted patient underwent an arteriogram. He was started on a heparin drip. His heparin drip was stopped yesterday. Patient developed pain and swelling in the calf today. A CT scan that was ordered prior showed fluid collection. Posterior to the gastroc anemias heads at the level of the knee. Therefore orthopedics was consulted. Not too long before arrival for the consultation the patient had another ischemic episode where his foot was blue and cool and he had increased pain. Vascular restarted the heparin drip. The patient pain continues to worsen. He states his entire foot is numb and has been like this for several days. Denies any fevers or chills. Past Medical History Medical History: hypertension Home Meds Active Scripts Acetaminophen* (Tylophen*) 500 Mg Capsule, 1 CAP PO Q6H PRN for PAIN AND OR HARDIK VATED TEMP, #30 CAP Prov:MARIBEL DUVALL PA-C 03/08/18 Tramadol HCl (Tramadol HCl) 50 Mg Tablet, 50 MG PO Q6 PRN for PAIN, #20 TAB Prov:MARIBEL DUVALL PA-C 03/08/18 Meloxicam* (Meloxicam*) 7.5 Mg Tablet, 7.5 MG PO DAILY, #30 TAB Prov:CAPRICE LIVINGSTON PA-C 02/03/18 Azithromycin* (Zithromax*) 250 Mg Tablet, 250 MG PO .ZPACK DIRECTED, #6 TAB TAKE 500 MG (2 TABS) THE FIRST DAY THEN 250 MG (1 TAB) DAYS 2-5 Prov:ALEK CHARLES MD 01/30/17 Reported Medications Omeprazole* (Omeprazole*) 20 Mg Capsule.dr, 20 MG PO DAILY, #30 CAP 01/30/17 Donepezil* (Aricept*) 5 Mg Tablet, 5 MG PO DAILY, TAB 01/30/17 Meloxicam* (Meloxicam*) 7.5 Mg Tablet, 7.5 MG PO DAILY, #30 TAB 01/30/17 Metoprolol Succinate* (Toprol XL*) 50 Mg Tab.er.24h, 50 MG PO DAILY, #30 TAB 01/30/17 Pentoxifylline* (Pentoxifylline*) 400 Mg Tablet.sa, 400 MG PO TID, TAB 01/30/17 Olmesartan-Hydrochlorothiazide (Benicar HCT) 20-12.5 Mg Tablet, 2 TAB PO DAILY, #30 TAB 01/30/17 Medications Current Medications IV Flush (NS 3 ml) 3 ml PER PROTOCOL IV ; Start 10/28/18 at 15:30 Hydromorphone HCl (Dilaudid) 0.5 mg Q4H PRN IV .SEVERE PAIN 7-10; Start 10/28/18 at 15:30 Metoprolol Succinate (Toprol Xl) 50 mg DAILY PO Last administered on 11/01/18at 08:21; Admin Dose 50 MG; Start 10/29/18 at 09:00 Pentoxifylline (Trental) 400 mg TID PO Last administered on 11/01/18at 13:14; Admin Dose 400 MG; Start 10/28/18 at 21:00 Tramadol HCl (Ultram) 50 mg Q6H PRN PO PAIN Last administered on 10/30/18 22:50; Admin Dose 50 MG; Start 10/28/18 at 16:00 Aspirin (Aspirin) 81 mg DAILY PO Last administered on 11/01/18 09:50; Admin Dose 81 MG; Start 10/29/18 at 09:00 Amlodipine Besylate (Norvasc) 5 mg DAILY PO Last administered on 11/01/18 08:20; Admin Dose 5 MG; Start 10/30/18 at 09:00 Hydralazine HCl (Apresoline) 10 mg Q4H PRN IV ELEVATED SYSTOLIC BP Last administered on 11/01/18 14:29; Admin Dose 10 MG; Start 10/31/18 at 06:30 Hydromorphone HCl (Dilaudid) 0.2 mg Q2 PRN IV PAIN LEVEL 1-5; Start 10/31/18 at 14:00 Allergies: Coded Allergies: No Known Drug Allergies (Verified Allergy, Mild, 10/12/15) Past Surgical History Past Surgical Hx: no surgical history Social History Alcohol Use: none Smoking Status: Current every day smoker Drug Use: none Exam/Review of Systems Exam Vitals Vital Signs Date Temp Pulse Resp B/P (MAP) Pulse Ox O2 O2 Flow FiO2 Time Delivery Rate 11/01/18 98.0 89 20 174/80 95 13:37 (111) 11/01/18 Room Air 07:16 11/01/18 2.0 02:00 Intake and Output 10/31/18 10/31/18 11/01/18 1515:00 23:00 07:00 IntakeIntake Total 52 ml 360 ml OutputOutput Total 100 ml 200 ml 300 ml BalanceBalance -48 ml 160 ml -300 ml Exam General: Awake, alert, in no acute distress, pleasant and cooperative Heart: regular rhythm Lungs: breathing comfortably, no tachypnea or dyspnea MUSCULOSKELETAL: Left lower extremity: Skin is intact. There is no fluid or fluctuance posterior in the popliteal fossa. He is nontender to palpation until the proximal one third calf down to his ankle. The compartment is firm but compressible. There is tenderness to palpation. There is no erythema. There is no fluid collection. Patient is able to wiggle toes and dorsiflex and plantarflex ankle. He has no sensation to his foot. No palpable pulses. Results Result Diagram: 11/01/18 1008 11/01/18 1008 Results 24hrs Laboratory Tests Test 11/01/18 01:54 11/01/18 09:25 11/01/18 10:08 11/01/18 19:57 Activated 94.4 *H 74.3 *H 30.3 Partial Thromboplast Time White Blood Count 10.6 11.6 H Red Blood Count 3.85 L 4.02 L Hemoglobin 11.4 L 11.8 L Hematocrit 34.5 L 35.7 L Mean Corpuscular Volume 89.6 88.8 Mean Corpuscular 29.6 29.4 Hemoglobin Mean Corpuscular 33.0 33.1 Hemoglobin Concent Red Cell Distribution 13.8 13.8 Width Platelet Count 171 193 Mean Platelet Volume 11.2 H 11.3 H Immature Granulocytes % 0.400 0.400 Neutrophils % 77.4 H 78.1 H Lymphocytes % 9.7 L 10.6 L Monocytes % 11.8 H 10.3 Eosinophils % 0.1 0.2 Basophils % 0.6 0.4 Nucleated Red Blood 0.0 0.0 Cells % Immature Granulocytes # 0.040 H 0.050 H Neutrophils # 8.2 H 9.0 H Lymphocytes # 1.0 1.2 Monocytes # 1.3 H 1.2 H Eosinophils # 0.0 0.0 Basophils # 0.1 0.1 Nucleated Red Blood 0.0 0.0 Cells # Erythrocyte 55 H Sedimentation Rate Sodium Level 139 Potassium Level 4.4 Chloride Level 106 Carbon Dioxide Level 25 Anion Gap 8 Blood Urea Nitrogen 24 H Creatinine 1.44 H Est Glomerular Filtrat Rate mL/min Glucose Level 121 Calcium Level 8.5 C-Reactive Protein 8.2 H Prothrombin Time 12.8 Prothrombin Time Ratio 1.0 INR International 0.95 Normalized Ratio Medications Medication Current Medications IV Flush (NS 3 ml) 3 ml PER PROTOCOL IV ; Start 10/28/18 at 15:30 Hydromorphone HCl (Dilaudid) 0.5 mg Q4H PRN IV .SEVERE PAIN 7-10; Start 10/28/18 at 15:30 Metoprolol Succinate (Toprol Xl) 50 mg DAILY PO Last administered on 11/01/18at 08:21; Admin Dose 50 MG; Start 10/29/18 at 09:00 Pentoxifylline (Trental) 400 mg TID PO Last administered on 11/01/18 13:14; Admin Dose 400 MG; Start 10/28/18 at 21:00 Tramadol HCl (Ultram) 50 mg Q6H PRN PO PAIN Last administered on 10/30/18 22:50 ; Admin Dose 50 MG; Start 10/28/18 at 16:00 Aspirin (Aspirin) 81 mg DAILY PO Last administered on 11/01/18 09:50; Admin Dose 81 MG; Start 10/29/18 at 09:00 Amlodipine Besylate (Norvasc) 5 mg DAILY PO Last administered on 11/01/18 08:20; Admin Dose 5 MG; Start 10/30/18 at 09:00 Hydralazine HCl (Apresoline) 10 mg Q4H PRN IV ELEVATED SYSTOLIC BP Last administered on 11/01/18 14:29; Admin Dose 10 MG; Start 10/31/18 at 06:30 Hydromorphone HCl (Dilaudid) 0.2 mg Q2 PRN IV PAIN LEVEL 1-5; Start 10/31/18 at 14:00 CHRISTIAN DEL ROSARIO MD Nov 01, 2018 21:07
[2018-11-01] MEDS: HEPARIN 25000 UNITS/250 ML 250 ML IV SCH (21:46)
[2018-11-02 02:25] VITALS: BP 164/93; PULSE 103; RESP 17
[2018-11-02 03:00] VITALS: PULSE 85
[2018-11-02 05:26] VITALS: PULSE 85
[2018-11-02] MEDS: ASPIRIN 81 MG TAB PO SCH (08:22)
[2018-11-02] MEDS: PENTOXIFYLLINE (SR) 400 MG TAB PO SCH ×3 (08:22→21:32)
[2018-11-02] MEDS: METOPROLOL (XL) 50 MG TAB PO SCH (08:23)
[2018-11-02] MEDS: AMLODIPINE 5 MG TAB PO SCH (08:23)
[2018-11-02 10:54] VITALS: BP 146/72; PULSE 77; RESP 17
--- NOTE | 2018-11-02 12:13 | PN ---
Date/Time of Note Date/Time of Note DATE: 11/02/18 TIME: 12:08 Assessment/Plan Lines/Catheters IV [facility]ter [facility] (from [facility]): Peripheral IV Assessment/Plan Chief Complaint/Hosp Course 83-year-old male with severe peripheral vascular disease and ischemia to the left lower leg. Compared to yesterday's examination as initial consult the gastrocnemius and soleus are softer. His foot is better perfused. It is possible that he has some myonecrosis from the initial ischemic event as well as reperfusion injury. At this time there is low concern for compartment syndrome. Orthopedics will now sign off as this is now a vascular issue. Please call with any concerns. 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 Exam/Review of Systems Vital Signs Vitals Vital Signs Date Temp Pulse Resp B/P (MAP) Pulse Ox O2 O2 Flow FiO2 Time Delivery Rate 11/02/18 98.2 77 17 146/72 91 10:54 (96) 11/01/18 Room Air 07:16 11/01/18 2.0 02:00 Intake and Output 11/01/18 11/01/18 11/02/18 1515:00 23:00 07:00 IntakeIntake Total 467.5 ml 480 ml 72 ml OutputOutput Total 400 ml 400 ml 150 ml BalanceBalance 67.5 ml 80 ml -78 ml Exam Free Text/Dictation General: Awake, alert, in no acute distress, pleasant and cooperative Heart: regular rhythm Lungs: breathing comfortably, no tachypnea or dyspnea MUSCULOSKELETAL: Left lower extremity: Skin is intact. There is no fluid or fluctuance posterior in the popliteal fossa. He is nontender to palpation until the proximal one third calf down to his ankle. The gastrocnemius and soleus are softer today than prior examination. They remain tender to palpation. Compartments are full but compressible. There is no erythema. There is no fluid collection. Patient is able to wiggle toes and dorsiflex and plantarflex ankle. He has no sensation to his foot. His foot is equal temperature to contralateral foot. No palpable pulses. Results Result Diagram: 11/01/18195611/01/18 1008 CHRISTIAN DEL ROSARIO MD Nov 02, 2018 12:13
--- NOTE | 2018-11-02 13:34 | PN ---
Date/Time of Note Date/Time of Note DATE: 11/02/18 TIME: 13:33 Assessment/Plan VTE Prophylaxis Risk score (from Ns)>0 risk: 8 SCD applied (from Ns): Yes Pharmacological prophylaxis: heparin Lines/Catheters IV Catheter Type (from Nrsg): Peripheral IV Assessment/Plan Hospital Course This is an 83-year-old male with a history of hypertension and tobacco use disorder who presents with L calf pain concerning for acute left lower extremity ischemia L calf pain: - Foot is now warm and seem well perfused - His calf muscle remains painful and aa bit indurated and firm. Duplex negative for clot. CT showing fluid collection of unclear etiology, I asked IR to drain it but Dr Tay says he is unable to. Per Dr Duncan not concerning for compartment syndrome. Defer to vascular for management - Continue heparin drip PAD: -JUANJO is 0.3 - Angiography shows stenosis in calf vessels, but no proximal obstruction -Continue aspirin, statin - Pain control MARTHA vs CKD: - Suspect this is baseline CKD given echogenicity seen on renal ultrasound. He has had no improvement with volume expansion. Negative for obstruction - Hold further NSAIDs - Monitor creatinine Hypertension: - Continue home meds Dc when able to ambualte Result Diagram: 11/01/18195611/01/18 1008 Results 24hrs Laboratory Tests Test 11/01/18 19:57 11/02/18 03:54 11/02/18 10:41 White Blood Count 11.6 H Red Blood Count 4.02 L Hemoglobin 11.8 L Hematocrit 35.7 L Mean Corpuscular Volume 88.8 Mean Corpuscular Hemoglobin 29.4 Mean Corpuscular Hemoglobin Concent 33.1 Red Cell Distribution Width 13.8 Platelet Count 193 Mean Platelet Volume 11.3 H Immature Granulocytes % 0.400 Neutrophils % 78.1 H Lymphocytes % 10.6 L Monocytes % 10.3 Eosinophils % 0.2 Basophils % 0.4 Nucleated Red Blood Cells % 0.0 Immature Granulocytes # 0.050 H Neutrophils # 9.0 H Lymphocytes # 1.2 Monocytes # 1.2 H Eosinophils # 0.0 Basophils # 0.1 Nucleated Red Blood Cells # 0.0 Prothrombin Time 12.8 Prothrombin Time Ratio 1.0 INR International Normalized Ratio 0.95 Activated Partial Thromboplast Time 30.3 69.8 H 62.8 H Subjective 24 Hr Interval Summary Free Text/Dictation Back on heparin drip Calf hurts him, less than yesterday it seems Exam/Review of Systems Exam Vitals Vital Signs Date Temp Pulse Resp B/P (MAP) Pulse Ox O2 O2 Flow FiO2 Time Delivery Rate 11/02/18 98.2 77 17 146/72 91 10:54 (96) 11/01/18 Room Air 07:16 11/01/18 2.0 02:00 Intake and Output 11/01/18 11/01/18 11/02/18 1515:00 23:00 07:00 IntakeIntake Total 467.5 ml 480 ml 72 ml OutputOutput Total 400 ml 400 ml 150 ml BalanceBalance 67.5 ml 80 ml -78 ml Exam Calf is still firm but less so than yesterday Externally skin is normal Foot is warm and much better perfused than previously Results Results 24hrs Laboratory Tests Test 11/01/18 19:57 11/02/18 03:54 11/02/18 10:41 White Blood Count 11.6 H Red Blood Count 4.02 L Hemoglobin 11.8 L Hematocrit 35.7 L Mean Corpuscular Volume 88.8 Mean Corpuscular Hemoglobin 29.4 Mean Corpuscular Hemoglobin Concent 33.1 Red Cell Distribution Width 13.8 Platelet Count 193 Mean Platelet Volume 11.3 H Immature Granulocytes % 0.400 Neutrophils % 78.1 H Lymphocytes % 10.6 L Monocytes % 10.3 Eosinophils % 0.2 Basophils % 0.4 Nucleated Red Blood Cells % 0.0 Immature Granulocytes # 0.050 H Neutrophils # 9.0 H Lymphocytes # 1.2 Monocytes # 1.2 H Eosinophils # 0.0 Basophils # 0.1 Nucleated Red Blood Cells # 0.0 Prothrombin Time 12.8 Prothrombin Time Ratio 1.0 INR International Normalized Ratio 0.95 Activated Partial Thromboplast Time 30.3 69.8 H 62.8 H Medications Medication Current Medications IV Flush (NS 3 ml) 3 ml PER PROTOCOL IV ; Start 10/28/18 at 15:30 Hydromorphone HCl (Dilaudid) 0.5 mg Q4H PRN IV .SEVERE PAIN 7-10 Last administered on 11/01/18at 20:33; Admin Dose 0.5 MG; Start 10/28/18 at 15:30 Metoprolol Succinate (Toprol Xl) 50 mg DAILY PO Last administered on 3/9/19at 08:23; Admin Dose 50 MG; Start 10/29/18 at 09:00 Pentoxifylline (Trental) 400 mg TID PO Last administered on 11/02/18 13:08; Admin Dose 400 MG; Start 10/28/18 at 21:00 Tramadol HCl (Ultram) 50 mg Q6H PRN PO PAIN Last administered on 10/30/18 22:50; Admin Dose 50 MG; Start 10/28/18 at 16:00 Aspirin (Aspirin) 81 mg DAILY PO Last administered on 11/02/18 08:22; Admin Dose 81 MG; Start 10/29/18 at 09:00 Amlodipine Besylate (Norvasc) 5 mg DAILY PO Last administered on 11/02/18 08:23; Admin Dose 5 MG; Start 10/30/18 at 09:00 Hydralazine HCl (Apresoline) 10 mg Q4H PRN IV ELEVATED SYSTOLIC BP Last a dministered on 11/01/18 14:29; Admin Dose 10 MG; Start 10/31/18 at 06:30 Hydromorphone HCl (Dilaudid) 0.2 mg Q2 PRN IV PAIN LEVEL 1-5; Start 10/31/18 at 14:00 Heparin Sodium (Porcine) (Heparin (1000 Units/ml)) 4,000 unit PER PROTOCOL PRN IV aPTT<47; Start 11/01/18 at 20:00 Heparin Sodium (Porcine) (Heparin (1000 Units/ml)) 2,000 unit PER PROTOCOL PRN IV aPTT<47-57; Start 11/01/18 at 20:00 Heparin Sodium (Porcine) 250 ml @ 9 mls/hr PER PROTOCOL IV Last administered on 11/01/18 21:46; Admin Dose 9 MLS/HR; Start 11/01/18 at 20:30 BLANCA RANDALL MD Nov 02, 2018 13:34
[2018-11-02 14:00] VITALS: BP 157/83; PULSE 80; RESP 17
--- NOTE | 2018-11-02 14:14 | PN ---
Date/Time of Note Date/Time of Note DATE: 11/02/18 TIME: 14:12 Assessment/Plan Lines/Catheters IV Catheter Type (from Nrsg): Peripheral IV Assessment/Plan Assessment/Plan Peripheral vascular disease left lower extremity based on the angiogram and Doppler studies patient has a viable foot adequate circulation at the present time may need intervention in the future if the peripheral vascular disease worsens however his creatinine level is elevated at the present time and would hold off on any contrast studies His pain is mostly in the left leg he has some fluid collection in the left leg which has been evaluated by orthopedic surgery Continue heparin therapy elevation of the left leg and will monitor the foot Subjective 24 Hr Interval Summary Constitutional: improved Pain Control: mild Exam/Review of Systems Vital Signs Vitals Vital Signs Date Temp Pulse Resp B/P (MAP) Pulse Ox O2 O2 Flow FiO2 Time Delivery Rate 11/02/18 98.2 77 17 146/72 91 10:54 (96) 11/01/18 Room Air 07:16 11/01/18 2.0 02:00 Intake and Output 11/01/18 11/01/18 11/02/18 1515:00 23:00 07:00 IntakeIntake Total 467.5 ml 480 ml 72 ml OutputOutput Total 400 ml 400 ml 150 ml BalanceBalance 67.5 ml 80 ml -78 ml Exam Eyes: nl conjunctiva, EOMI, nl lids, nl sclera ENMT: nl external ears & nose, nl lips & teeth, nl nasal mucosa & septum, mucosa pink and moist Neck: supple, non-tender Respiratory: clear to auscultation, normal air movement Cardiovascular: regular rate and rhythm, nl pulses Gastrointestinal: soft, nl liver, spleen, non-tender Additional Comments Left foot is warm down to the toes there is Doppler signals in the dorsalis pedis artery patient does have a firm left leg which is tender he is able to wiggle his toes there is also some tenderness around the sole of the foot capillary refill is about 2-3 seconds Results Result Diagram: 11/01/18195611/01/18 1008 JAUN CHAVEZ MD Nov 02, 2018 14:14
[2018-11-02 20:02] VITALS: BP 154/84; PULSE 94; RESP 18
[2018-11-02] MEDS: HEPARIN 25000 UNITS/250 ML 250 ML IV SCH (23:11)
[2018-11-03 02:00] VITALS: BP 146/77; PULSE 86; RESP 20
[2018-11-03 07:37] VITALS: BP 171/88; PULSE 93; RESP 26
[2018-11-03] MEDS: ASPIRIN 81 MG TAB PO SCH (09:19)
[2018-11-03] MEDS: PENTOXIFYLLINE (SR) 400 MG TAB PO SCH ×3 (09:19→21:16)
[2018-11-03] MEDS: METOPROLOL (XL) 50 MG TAB PO SCH (09:19)
[2018-11-03] MEDS: AMLODIPINE 5 MG TAB PO SCH (09:19)
[2018-11-03 13:23] VITALS: BP 150/72; PULSE 93; RESP 18
--- NOTE | 2018-11-03 15:42 | PN ---
Date/Time of Note Date/Time of Note DATE: 11/03/18 TIME: 15:41 Assessment/Plan VTE Prophylaxis Risk score (from Nsg)>0 risk: 5 SCD applied (from Nsg): Yes Pharmacological prophylaxis: heparin Lines/Catheters IV Catheter Type (from Nrsg): Peripheral IV Assessment/Plan Hospital Course This is an 83-year-old male with a history of hypertension and tobacco use disorder who presents with L calf pain concerning for acute left lower extremity ischemia L calf pain: - Foot is now warm and seem well perfused - His calf muscle remains painful and is a bit indurated and firm. Duplex negative for clot. CT showing fluid collection of unclear etiology, I asked IR to drain it but Dr Tay says he is unable to. Per Dr Duncan this is not concerning for compartment syndrome. Defer to vascular for management - Continue heparin drip PAD: -JUANJO is 0.3 - Angiography shows stenosis in calf vessels, but no proximal obstruction -Continue aspirin, statin - Pain control MARTHA vs CKD: - Suspect this is baseline CKD given echogenicity seen on renal ultrasound. He has had no improvement with volume expansion. 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 Exam/Review of Systems Exam Vitals Vital Signs Date Temp Pulse Resp B/P (MAP) Pulse Ox O2 O2 Flow FiO2 Time Delivery Rate 11/03/18 98.4 93 18 150/72 96 13:23 (98) 11/01/18 Room Air 07:16 11/01/18 2.0 02:00 Intake and Output 11/02/18 11/02/18 11/03/18 1515:00 23:00 07:00 IntakeIntake Total 1023 ml 160 ml 55 ml OutputOutput Total 350 ml 250 ml BalanceBalance 673 ml 160 ml -195 ml Constitutional: alert, oriented, well developed Psych: no complaints, nl mood/affect Head: normocephalic, atraumatic Eyes: nl conjunctiva, EOMI, nl lids, nl sclera, PERRL ENMT: nl external ears & nose, nl lips & teeth, nl nasal mucosa & septum Neck: supple, non-tender Respiratory: clear to auscultation, normal air movement Cardiovascular: regular rate and rhythm, nl pulses Gastrointestinal: soft, nl liver, spleen, non-tender Musculoskeletal: nl extremities to inspection, nl gait and stance Extremities: normal pulses Neurological: FREIGHT RATE CLERK II-XII intact, nl mental status, nl speech, nl strength Skin: nl turgor; No rash or lesions Lymph: nl lymph nodes Results Results 24hrs Laboratory Tests Test 11/02/18 18:10 11/03/18 00:46 Activated Partial Thromboplast Time 76.3 *H 77.8 *H Medications Medication Current Medications IV Flush (NS 3 ml) 3 ml PER PROTOCOL IV ; Start 10/28/18 at 15:30 Hydromorphone HCl (Dilaudid) 0.5 mg Q4H PRN IV .SEVERE PAIN 7-10 Last administered on 11/01/18 20:33; Admin Dose 0.5 MG; Start 10/28/18 at 15:30 Metoprolol Succinate (Toprol Xl) 50 mg DAILY PO Last administered on 11/03/18 09:19; Admin Dose 50 MG; Start 10/29/18 at 09:00 Pentoxifylline (Trental) 400 mg TID PO Last administered on 11/03/18 14:21; Admin Dose 400 MG; Start 10/28/18 at 21:00 Tramadol HCl (Ultram) 50 mg Q6H PRN PO PAIN Last administered on 10/30/18 22:50; Admin Dose 50 MG; Start 10/28/18 at 16:00 Aspirin (Aspirin) 81 mg DAILY PO Last administered on 11/03/18 09:19; Admin Dose 81 MG; Start 10/29/18 at 09:00 Amlodipine Besylate (Norvasc) 5 mg DAILY PO Last administered on 11/03/18 09:19; Admin Dose 5 MG; Start 10/30/18 at 09:00 Hydralazine HCl (Apresoline) 10 mg Q4H PRN IV ELEVATED SYSTOLIC BP Last administered on 11/01/18 14:29; Admin Dose 10 MG; Start 10/31/18 at 06:30 Hydromorphone HCl (Dilaudid) 0.2 mg Q2 PRN IV PAIN LEVEL 1-5; Start 10/31/18 at 14:00 Heparin Sodium (Porcine) (Heparin (1000 Units/ml)) 4,000 unit PER PROTOCOL PRN IV aPTT<47; Start 11/01/18 at 20:00 Heparin Sodium (Porcine) (Heparin (1000 Units/ml)) 2,000 unit PER PROTOCOL PRN IV aPTT<47-57; Start 11/01/18 at 20:00 Heparin Sodium (Porcine) 250 ml @ 9 mls/hr PER PROTOCOL IV Last administered on 11/02/18at 23:11; Admin Dose 10 MLS/HR; Start 11/01/18 at 20:30 BLANCA RANDALL MD Nov 03, 2018 15:42
[2018-11-03 20:05] VITALS: BP 142/80; PULSE 83; RESP 18
[2018-11-04 01:41] VITALS: BP 155/86; PULSE 95; RESP 18
[2018-11-04] MEDS: HEPARIN 25000 UNITS/250 ML 250 ML IV SCH (03:18)
[2018-11-04 08:01] VITALS: BP 164/86; PULSE 92; RESP 18
[2018-11-04] MEDS: ASPIRIN 81 MG TAB PO SCH (09:26)
[2018-11-04] MEDS: AMLODIPINE 5 MG TAB PO SCH (09:26)
[2018-11-04] MEDS: METOPROLOL (XL) 50 MG TAB PO SCH (09:26)
[2018-11-04] MEDS: PENTOXIFYLLINE (SR) 400 MG TAB PO SCH ×3 (09:26→20:27)
[2018-11-04] MEDS: traMADol 50 MG TAB PO PRN (09:30)
[2018-11-04 15:02] VITALS: BP 133/69; PULSE 85; RESP 20
--- NOTE | 2018-11-04 16:10 | PN ---
Date/Time of Note Date/Time of Note DATE: 11/04/18 TIME: 16:08 Assessment/Plan VTE Prophylaxis Risk score (from Nsg)>0 risk: 8 Pharmacological prophylaxis: heparin Lines/Catheters IV Catheter Type (from Nrsg): Peripheral IV Assessment/Plan Hospital Course This is an 83-year-old male with a history of hypertension and tobacco use disorder who presents with L calf pain concerning for acute left lower extremity ischemia L calf pain: - Foot is now warm and seem well perfused - His calf muscle remains painful and is a bit indurated and firm. Duplex negative for clot. CT showing fluid collection of unclear etiology, I asked IR to drain it but Dr Tay says he is unable to. Per Dr Duncan this is not concerning for compartment syndrome. Defer to vascular for management - Continue heparin drip PAD: -JUANJO is 0.3 - Angiography shows stenosis in calf vessels, but no proximal obstruction -Continue aspirin, statin - Pain control MARTHA vs CKD: - Suspect this is baseline CKD given echogenicity seen on renal ultrasound. He has had no improvement with volume expansion. Negative for obstruction - Hold further NSAIDs - Monitor creatinine Hypertension: - Continue home meds Prophylaxis: Heparin Dc home when able to ambulate and cleared by vascular surgeon, anticipate DC to home in 1-2 days Result Diagram: 11/04/18 0549 11/04/18 0549 Results 24hrs Laboratory Tests Test 11/04/18 05:49 White Blood Count 9.5 Red Blood Count 3.89 L Hemoglobin 11.5 L Hematocrit 35.5 L Mean Corpuscular Volume 91.3 Mean Corpuscular Hemoglobin 29.6 Mean Corpuscular Hemoglobin Concent 32.4 Red Cell Distribution Width 13.7 Platelet Count 233 # Mean Platelet Volume 11.0 H Immature Granulocytes % 0.400 Neutrophils % 72.5 Lymphocytes % 13.8 L Monocytes % 12.3 H Eosinophils % 0.5 Basophils % 0.5 Nucleated Red Blood Cells % 0.0 Immature Granulocytes # 0.040 H Neutrophils # 6.9 Lymphocytes # 1.3 Monocytes # 1.2 H Eosinophils # 0.1 Basophils # 0.1 Nucleated Red Blood Cells # 0.0 Activated Partial Thromboplast Time 76.3 *H Sodium Level 141 Potassium Level 4.3 Chloride Level 104 Carbon Dioxide Level 27 Anion Gap 10 Blood Urea Nitrogen 27 H Creatinine 1.33 H Est Glomerular Filtrat Rate mL/min Glucose Level 103 Calcium Level 9.0 Subjective 24 Hr Interval Summary Musculoskeletal: bone/joint pain Exam/Review of Systems Exam Vitals Vital Signs Date Temp Pulse Resp B/P (MAP) Pulse Ox O2 O2 Flow FiO2 Time Delivery Rate 11/04/18 98.2 85 20 133/69 94 15:02 (90) 11/01/18 Room Air 07:16 11/01/18 2.0 02:00 Intake and Output 11/03/18 11/03/18 11/04/18 1414:59 22:59 06:59 IntakeIntake Total 960 ml 340 ml 651 ml OutputOutput Total 150 ml 200 ml 300 ml BalanceBalance 810 ml 140 ml 351 ml Constitutional: alert, oriented Respiratory: clear to auscultation Cardiovascular: regular rate and rhythm Gastrointestinal: soft; No distended Musculoskeletal: nl extremities to inspection Results Results 24hrs Laboratory Tests Test 11/04/18 05:49 White Blood Count 9.5 Red Blood Count 3.89 L Hemoglobin 11.5 L Hematocrit 35.5 L Mean Corpuscular Volume 91.3 Mean Corpuscular Hemoglobin 29.6 Mean Corpuscular Hemoglobin Concent 32.4 Red Cell Distribution Width 13.7 Platelet Count 233 # Mean Platelet Volume 11.0 H Immature Granulocytes % 0.400 Neutrophils % 72.5 Lymphocytes % 13.8 L Monocytes % 12.3 H Eosinophils % 0.5 Basophils % 0.5 Nucleated Red Blood Cells % 0.0 Immature Granulocytes # 0.040 H Neutrophils # 6.9 Lymphocytes # 1.3 Monocytes # 1.2 H Eosinophils # 0.1 Basophils # 0.1 Nucleated Red Blood Cells # 0.0 Activated Partial Thromboplast Time 76.3 *H Sodium Level 141 Potassium Level 4.3 Chloride Level 104 Carbon Dioxide Level 27 Anion Gap 10 Blood Urea Nitrogen 27 H Creatinine 1.33 H Est Glomerular Filtrat Rate mL/min Glucose Level 103 Calcium Level 9.0 Medications Medication Current Medications IV Flush (NS 3 ml) 3 ml PER PROTOCOL IV ; Start 10/28/18 at 15:30 Hydromorphone HCl (Dilaudid) 0.5 mg Q4H PRN IV .SEVERE PAIN 7-10 Last admin istered on 11/01/18at 20:33; Admin Dose 0.5 MG; Start 10/28/18 at 15:30 Metoprolol Succinate (Toprol Xl) 50 mg DAILY PO Last administered on 11/04/18 09:26; Admin Dose 50 MG; Start 10/29/18 at 09:00 Pentoxifylline (Trental) 400 mg TID PO Last administered on 11/04/18 13:33; Admin Dose 400 MG; Start 10/28/18 at 21:00 Tramadol HCl (Ultram) 50 mg Q6H PRN PO PAIN Last administered on 11/04/18 09:30; Admin Dose 50 MG; Start 10/28/18 at 16:00 Aspirin (Aspirin) 81 mg DAILY PO Last administered on 11/04/18 09:26; Admin Dose 81 MG; Start 10/29/18 at 09:00 Amlodipine Besylate (Norvasc) 5 mg DAILY PO Last administered on 11/04/18 09:26; Admin Dose 5 MG; Start 10/30/18 at 09:00 Hydralazine HCl (Apresoline) 10 mg Q4H PRN IV ELEVATED SYSTOLIC BP Last administered on 11/01/18 14:29; Admin Dose 10 MG; Start 10/31/18 at 06:30 Hydromorphone HCl (Dilaudid) 0.2 mg Q2 PRN IV PAIN LEVEL 1-5; Start 10/31/18 at 14:00 Heparin Sodium (Porcine) (Heparin (1000 Units/ml)) 4,000 unit PER PROTOCOL PRN IV aPTT<47; Start 11/01/18 at 20:00 Heparin Sodium (Porcine) (Heparin (1000 Units/ml)) 2,000 unit PER PROTOCOL PRN IV aPTT<47-57; Start 11/01/18 at 20:00 Heparin Sodium (Porcine) 250 ml @ 9 mls/hr PER PROTOCOL IV Last administered on 11/04/18 03:18; Admin Dose 10 MLS/HR; Start 11/01/18 at 20:30 MARC GLORIA Nov 04, 2018 16:10
--- NOTE | 2018-11-04 19:14 | PN ---
Date/Time of Note Date/Time of Note DATE: 11/04/18 TIME: 19:12 Assessment/Plan Lines/Catheters IV Catheter Type (from Nrsg): Peripheral IV Assessment/Plan Assessment/Plan Peripheral vascular disease which is mild patient does have 1 vessel runoff no signs of acute ischemia at the present time Left calf fluid collection not enough for interventional radiology to drain Petechiae left foot with tenderness I would recommend to get an echocardiogram to rule out intracardiac clot to rule out embolization Also need hematology oncology consultation to rule out blood dyscrasias Subjective 24 Hr Interval Summary Pain Control: mild Exam/Review of Systems Vital Signs Vitals Vital Signs Date Temp Pulse Resp B/P (MAP) Pulse Ox O2 O2 Flow FiO2 Time Delivery Rate 11/04/18 98.2 85 20 133/69 94 15:02 (90) 11/01/18 Room Air 07:16 11/01/18 2.0 02:00 Intake and Output 11/03/18 11/03/18 11/04/18 1515:00 23:00 07:00 IntakeIntake Total 860 ml 340 ml 651 ml OutputOutput Total 150 ml 200 ml 300 ml BalanceBalance 710 ml 140 ml 351 ml Exam Eyes: nl conjunctiva, EOMI, nl lids, nl sclera ENMT: nl external ears & nose, nl lips & teeth, nl nasal mucosa & septum, mucosa pink and moist Neck: supple, non-tender Cardiovascular: regular rate and rhythm, nl pulses Gastrointestinal: soft, nl liver, spleen, non-tender Musculoskeletal: nl extremities to inspection, nl gait and stance Extremities: calf tenderness, edema, tenderness Additional Comments Left leg is slightly softer today There is strong Doppler signals in the anterior tibial artery Capillary refill is about 2 seconds The foot is warm all the way down to the toes No signs of ischemia And has a large segment of what appears to be petechiae and ecchymosis in the lateral aspect of the foot on the left side The left calf is laminating machine tender but better than before Results Result Diagram: 11/04/18 0549 11/04/18 0549 JAUN CHAVEZ MD Nov 04, 2018 19:14
[2018-11-04 19:31] VITALS: BP 154/80; PULSE 90; RESP 18
[2018-11-04] MEDS: BALSAM PERU/CASTOR OIL 60 GM TUBE TOP SCH (20:27)
[2018-11-04 21:32] VITALS: BP 119/74; PULSE 107; RESP 19
[2018-11-05 01:30] VITALS: BP 158/80; PULSE 93; RESP 18
[2018-11-05] MEDS: HEPARIN 25000 UNITS/250 ML 250 ML IV SCH (05:08)
[2018-11-05 07:41] VITALS: BP 162/87; PULSE 89; RESP 20
[2018-11-05] MEDS: ASPIRIN 81 MG TAB PO SCH (09:01)
[2018-11-05] MEDS: METOPROLOL (XL) 50 MG TAB PO SCH (09:01)
[2018-11-05] MEDS: PENTOXIFYLLINE (SR) 400 MG TAB PO SCH ×3 (09:01→20:41)
[2018-11-05] MEDS: AMLODIPINE 5 MG TAB PO SCH (09:01)
[2018-11-05] MEDS: BALSAM PERU/CASTOR OIL 60 GM TUBE TOP SCH ×2 (09:02→20:41)
--- NOTE | 2018-11-05 13:42 | PN ---
Date/Time of Note Date/Time of Note DATE: 11/05/18 TIME: 13:40 Assessment/Plan VTE Prophylaxis Risk score (from Nsg)>0 risk: 4 Pharmacological prophylaxis: NA/contraindicated Pharm contraindication: bleeding Lines/Catheters IV Catheter Type (from Nrsg): Peripheral IV Assessment/Plan Hospital Course This is an 83-year-old male with a history of hypertension and tobacco use disorder who presents with L calf pain concerning for acute left lower extremity ischemia L ankle pain: - Foot is now warm and seem well perfused - His calf muscle remains painful and is a bit indurated and firm. Duplex negative for clot. CT showing fluid collection of unclear etiology, I asked IR to drain it but Dr Tay says he is unable to. Per Dr Duncan this is not concerning for compartment syndrome. Defer to vascular for management -DC heparin drip as fluid collection may be hematoma -Follow-up in echo to rule out thrombi and hit antibody PAD: -JUANJO is 0.3 - Angiography shows stenosis in calf vessels, but no proximal obstruction -Continue aspirin, statin - Pain control MARTHA vs CKD: - Suspect this is baseline CKD given echogenicity seen on renal ultrasound. He has had no improvement with volume expansion. Negative for obstruction - Hold further NSAIDs - Monitor creatinine Hypertension: - Continue home meds Dc home when able to ambulate and cleared by vascular surgeon, anticipate DC to home in 1-2 days Result Diagram: 11/04/18 0549 11/05/18 0505 Results 24hrs Laboratory Tests Test 11/05/18 05:05 Activated Partial Thromboplast Time 66.1 H Sodium Level 138 Potassium Level 4.2 Chloride Level 101 Carbon Dioxide Level 28 Anion Gap 9 Blood Urea Nitrogen 30 H Creatinine 1.29 H Est Glomerular Filtrat Rate mL/min Glucose Level 104 Calcium Level 8.8 Subjective 24 Hr Interval Summary Musculoskeletal: bone/joint pain Exam/Review of Systems Exam Vitals Vital Signs Date Temp Pulse Resp B/P (MAP) Pulse Ox O2 O2 Flow FiO2 Time Delivery Rate 11/05/18 98.7 89 20 162/87 93 07:41 (112) 11/01/18 Room Air 07:16 Intake and Output 11/04/18 11/04/18 11/05/18 1515:00 23:00 07:00 IntakeIntake Total 460 ml 715 ml 120 ml OutputOutput Total 350 ml 450 ml BalanceBalance 110 ml 265 ml 120 ml Constitutional: alert, oriented Respiratory: clear to auscultation Cardiovascular: regular rate and rhythm Gastrointestinal: soft; No distended Musculoskeletal: No nl extremities to inspection Results Results 24hrs Laboratory Tests Test 11/05/18 05:05 Activated Partial Thromboplast Time 66.1 H Sodium Level 138 Potassium Level 4.2 Chloride Level 101 Carbon Dioxide Level 28 Anion Gap 9 Blood Urea Nitrogen 30 H Creatinine 1.29 H Est Glomerular Filtrat Rate mL/min Glucose Level 104 Calcium Level 8.8 Medications Medication Current Medications IV Flush (NS 3 ml) 3 ml PER PROTOCOL IV ; Start 10/28/18 at 15:30 Hydromorphone HCl (Dilaudid) 0.5 mg Q4H PRN IV .SEVERE PAIN 7-10 Last administered on 11/01/18 20:33; Admin Dose 0.5 MG; Start 10/28/18 at 15:30 Metoprolol Succinate (Toprol Xl) 50 mg DAILY PO Last administered on 11/05/18 09:01; Admin Dose 50 MG; Start 10/29/18 at 09:00 Pentoxifylline (Trental) 400 mg TID PO Last administered on 11/05/18 12:17; Admin Dose 400 MG; Start 10/28/18 at 21:00 Tramadol HCl (Ultram) 50 mg Q6H PRN PO PAIN Last administered on 11/04/18 09:30; Admin Dose 50 MG; Start 10/28/18 at 16:00 Aspirin (Aspirin) 81 mg DAILY PO Last administered on 11/05/18 09:01; Admin Dose 81 MG; Start 10/29/18 at 09:00 Amlodipine Besylate (Norvasc) 5 mg DAILY PO Last administered on 11/05/18 09:01; Admin Dose 5 MG; Start 10/30/18 at 09:00 Hydralazine HCl (Apresoline) 10 mg Q4H PRN IV ELEVATED SYSTOLIC BP Last administered on 11/01/18 14:29; Admin Dose 10 MG; Start 10/31/18 at 06:30 Hydromorphone HCl (Dilaudid) 0.2 mg Q2 PRN IV PAIN LEVEL 1-5; Start 10/31/18 at 14:00 Heparin Sodium (Porcine) (Heparin (1000 Units/ml)) 4,000 unit PER PROTOCOL PRN IV aPTT<47; Start 11/01/18 at 20:00 Heparin Sodium (Porcine) (Heparin (1000 Units/ml)) 2,000 unit PER PROTOCOL PRN IV aPTT<47-57; Start 11/01/18 at 20:00 Heparin Sodium (Porcine) 250 ml @ 9 mls/hr PER PROTOCOL IV Last administered on 11/05/18at 05:08; Admin Dose 10 MLS/HR; Start 11/01/18 at 20:30 MARC GLORIA Nov 05, 2018 13:42
[2018-11-05 15:41] VITALS: BP 141/75; PULSE 87; RESP 20
[2018-11-05] MEDS: traMADol 50 MG TAB PO PRN ×2 (16:43→23:22)
[2018-11-05 19:40] VITALS: BP 151/76; PULSE 86; RESP 18
[2018-11-05] MEDS: HYDROmorphONE 0.5 MG/0.5 ML SYG IV PRN (20:41)
[2018-11-06 01:27] VITALS: BP 146/71; PULSE 88; RESP 18
[2018-11-06] MEDS: traMADol 50 MG TAB PO PRN (05:28)
--- NOTE | 2018-11-06 07:29 | RADRPT ---
Echocardiogram Report Patient Name: MITCHEL JENKINSPatient ID: [id number] : 1935 (83y 4m)Study Date: 11/05/2018 11:16:05 AM Gender: MAccession #: [id number] Tech: Armen Todd [facility] Location: [id number] Ref.Physician: MARC GLORIA Height(Cm): BSA: Weight(Kg): Quality: AdequateAccount #: Procedures: Echocardiographic Report: Transthoracic echocardiogram with complete 2D, M-Mode, and doppler examination. Indications: Evaluate for Thrombi. Measurements: 2D/M Mode Doppler Measurement Value Normal Range Measurement Value Normal Range LVIDd 2D 3.9 [ 4.2 - 5.8 ] cm AV Peak Kilo 1.2 [ 100.0 - 170.0 ] cm/sec LVIDs 2D 3.0 [ 2.5 - 4.0 ] cm AV Peak PG 6.0 [ 2.0 - 9.0 ] mmHg LVPWd 2D 1.5 [ 0.6 - 1.0 ] cm AI Peak PG 66.0 mmHg IVSd 2D 1.0 [ 0.6 - 1.0 ] cm AI Peak Kilo 4.1 cm/sec AoR Diam 2D 3.3 [ 2.6 - 3.4 ] cm AI PHT 408.0 msec EDV 2D 67.5 [ 62.0 - 150.0 ] ml LVOT Peak Kilo 0.9 [ 70.0 - 110.0 ] cm/sec ESV 2D 36.2 [ 21.0 - 61.0 ] ml LVOT Peak PG 3.0 [ 2.0 - 6.0 ] mmHg EF 2D 46.4 [ 52.0 - 72.0 ] percent MV E Peak Kilo 0.7 [ 60.0 - 130.0 ] cm/sec LA Dimen 2D 2.6 [ 3.0 - 4.0 ] cm MV A Peak Kilo 0.5 [ 100.0 - 120.0 ] cm/sec MV E/A 1.4 [ 0.8 - 1.5 ] ratio MV Decel Time 211 [ 104 - 258 ] msec Lat E` Kilo 0.1 [ 10.0 - 15.0 ] cm/sec Lateral E/E` 10.9 [ 1.0 - 2.0 ] ratio MV E/A 1.4 [ 0.8 - 1.5 ] ratio TR Peak Kilo 2.0 [ 100.0 - 280.0 ] cm/sec TR Peak PG 16.0 mmHg RVSP 19.0 [ 10.0 - 36.0 ] mmHg RA Pressure 3.0 mmHg Findings: Left Ventricle: Normal left ventricular cavity size. Moderate asymmetric septal hypertrophy. Mild global left ventricular systolic dysfunction. Ejection fraction is visually estimated at 40-45 %. No left ventricular thrombus visualized. Tissue Doppler/Mitral Doppler indices are consistent with impaired relaxation (Stage I diastolic dysfunction). Right Ventricle: Normal right ventricular size. Normal right ventricular systolic function. Left Atrium: The left atrium is normal in size. Right Atrium: The right atrium is normal in size. Mitral Valve: Mitral valve leaflets appear mildly thickened. Mild mitral annular calcification. Trace mitral regurgitation. Aortic Valve: No hemodynamically significant aortic stenosis by doppler. Aortic cusps appear mildly calcified. Mild aortic valve regurgitation. Tricuspid Valve: Normal appearance of the tricuspid valve. Estimated peak PA systolic pressure 19 mmHg. There is trace tricuspid regurgitation. Pulmonic Valve: Pulmonic valve not well visualized. Pericardium: Normal pericardium with no significant pericardial effusion. Aorta: Normal aortic root. IVC: Normal size and normal respiratory collapse consistent with normal right atrial pressure. Conclusions: Normal left ventricular cavity size. Moderate asymmetric septal hypertrophy. Mild global left ventricular systolic dysfunction. Ejection fraction is visually estimated at 40-45 %. No left ventricular thrombus visualized. Tissue Doppler/Mitral Doppler indices are consistent with impaired relaxation (Stage I diastolic dysfunction). Mitral valve leaflets appear mildly thickened. Mild mitral annular calcification. Trace mitral regurgitation. No hemodynamically significant aortic stenosis by doppler. Aortic cusps appear mildly calcified. Mild aortic valve regurgitation. Normal appearance of the tricuspid valve. Estimated peak PA systolic pressure 19 mmHg. There is trace tricuspid regurgitation. Electronically Signed By: Benedict Olivas 2018-11-06 07:28:54 PDT
[2018-11-06 08:00] VITALS: BP 155/79; PULSE 94; RESP 18
[2018-11-06] MEDS: PENTOXIFYLLINE (SR) 400 MG TAB PO SCH ×3 (08:42→20:11)
[2018-11-06] MEDS: ASPIRIN 81 MG TAB PO SCH (08:43)
[2018-11-06] MEDS: AMLODIPINE 5 MG TAB PO SCH (08:43)
[2018-11-06] MEDS: METOPROLOL (XL) 50 MG TAB PO SCH (08:43)
--- NOTE | 2018-11-06 12:10 | PN ---
Date/Time of Note Date/Time of Note DATE: 11/06/18 TIME: 12:06 Assessment/Plan VTE Prophylaxis Risk score (from Nsg)>0 risk: 3 Pharmacological prophylaxis: NA/contraindicated Pharm contraindication: bleeding Lines/Catheters IV Catheter Type (from Nrsg): Saline Lock Assessment/Plan Hospital Course This is an 83-year-old male with a history of hypertension and tobacco use disorder who presents with L calf pain concerning for acute left lower extremity ischemia L ankle pain with inability to ambulate -Hematoma is improving but patient still unable to ambulate due to pain - Foot is now warm and seem well perfused -Patient appears to have a hematoma in his medial ankle, heparin has been discontinued - Duplex negative for clot. CT showing fluid collection of unclear etiology, IR unable to drain and per Dr Duncan this is not concerning for compartment syndrome, Defer to vascular for management -Echo shows no evidence of thrombi, follow up on hit antibody PAD: -JUANJO is 0.3 - Angiography shows stenosis in calf vessels, but no proximal obstruction -Continue aspirin, statin - Pain control MARTHA vs CKD: - Suspect this is baseline CKD given echogenicity seen on renal ultrasound. He has had no improvement with volume expansion. Negative for obstruction - Hold further NSAIDs - Monitor creatinine CHF -Echo shows an EF of 40-45%, likely chronic -Outpatient monitoring Hypertension: - Continue home meds DC planning: Patient is still unable to ambulate due to his left ankle pain which is likely from a hematoma, plan is for acute rehab evaluation today Result Diagram: 11/04/18 0549 11/05/18 0505 Results 24hrs Laboratory Tests Test 11/05/18 14:30 Activated Partial Thromboplast Time 71.1 *H Subjective 24 Hr Interval Summary Musculoskeletal: bone/joint pain Exam/Review of Systems Exam Vitals Vital Signs Date Temp Pulse Resp B/P (MAP) Pulse Ox O2 O2 Flow FiO2 Time Delivery Rate 11/06/18 98.5 94 18 155/79 94 Room Air 08:00 (104) Intake and Output 11/05/18 11/05/18 11/06/18 1515:00 23:00 07:00 IntakeIntake Total 840 ml 520 ml 118 ml OutputOutput Total 850 ml 350 ml BalanceBalance -10 ml 520 ml -232 ml Constitutional: alert Respiratory: clear to auscultation Cardiovascular: regular rate and rhythm Gastrointestinal: soft; No distended Musculoskeletal: No nl extremities to inspection Results Results 24hrs Laboratory Tests Test 11/05/18 14:30 Activated Partial Thromboplast Time 71.1 *H Medications Medication Current Medications IV Flush (NS 3 ml) 3 ml PER PROTOCOL IV ; Start 10/28/18 at 15:30 Hydromorphone HCl (Dilaudid) 0.5 mg Q4H PRN IV .SEVERE PAIN 7-10 Last administered on 11/05/18 20:41; Admin Dose 0.5 MG; Start 10/28/18 at 15:30 Metoprolol Succinate (Toprol Xl) 50 mg DAILY PO Last administered on 11/06/18 08:43; Admin Dose 50 MG; Start 10/29/18 at 09:00 Pentoxifylline (Trental) 400 mg TID PO Last administered on 11/06/18 08:42; Admin Dose 400 MG; Start 10/28/18 at 21:00 Tramadol HCl (Ultram) 50 mg Q6H PRN PO PAIN Last administered on 11/06/18 05:28; Admin Dose 50 MG; Start 10/28/18 at 16:00 Aspirin (Aspirin) 81 mg DAILY PO Last administered on 11/06/18 08:43; Admin Dose 81 MG; Start 10/29/18 at 09:00 Amlodipine Besylate (Norvasc) 5 mg DAILY PO Last administered on 11/06/18 08:43; Admin Dose 5 MG; Start 10/30/18 at 09:00 Hydralazine HCl (Apresoline) 10 mg Q4H PRN IV ELEVATED SYSTOLIC BP Last administered on 11/01/18 14:29; Admin Dose 10 MG; Start 10/31/18 at 06:30 Hydromorphone HCl (Dilaudid) 0.2 mg Q2 PRN IV PAIN LEVEL 1-5; Start 10/31/18 at 14:00 MARC GLORIA Nov 06, 2018 12:10
[2018-11-06 13:39] VITALS: BP 128/60; PULSE 84; RESP 18
[2018-11-06] MEDS: BALSAM PERU/CASTOR OIL 60 GM TUBE TOP SCH ×2 (15:42→20:10)
[2018-11-06 19:28] VITALS: BP 134/71; PULSE 90; RESP 18
[2018-11-07 01:42] VITALS: BP 157/75; PULSE 96; RESP 18
[2018-11-07 07:37] VITALS: BP 149/83; PULSE 91; RESP 18
[2018-11-07] MEDS: ASPIRIN 81 MG TAB PO SCH (09:23)
[2018-11-07] MEDS: AMLODIPINE 5 MG TAB PO SCH (09:24)
[2018-11-07] MEDS: PENTOXIFYLLINE (SR) 400 MG TAB PO SCH ×2 (09:24→16:21)
[2018-11-07] MEDS: BALSAM PERU/CASTOR OIL 60 GM TUBE TOP SCH (09:24)
[2018-11-07] MEDS: METOPROLOL (XL) 50 MG TAB PO SCH (09:24)
--- NOTE | 2018-11-07 12:50 | PN ---
Date/Time of Note Date/Time of Note DATE: 11/07/18 TIME: 12:49 Assessment/Plan VTE Prophylaxis Risk score (from Nsg)>0 risk: 4 SCD applied (from Nsg): Yes Pharmacological prophylaxis: heparin Lines/Catheters IV Catheter Type (from Nrsg): Saline Lock Assessment/Plan Hospital Course This is an 83-year-old male with a history of hypertension and tobacco use disorder who presents with L calf pain concerning for acute left lower extremity ischemia L calf pain: - Foot is now warm and seem well perfused - His calf muscle remains painful and is a bit indurated and firm. Duplex negative for clot. CT showing fluid collection of unclear etiology, I asked IR to drain it but Dr Tay says he is unable to. Per Dr Duncan this is not concerning for compartment syndrome. Defer to vascular for management - s/p heparin drip PAD: -JUANJO is 0.3 - Angiography shows stenosis in calf vessels, but no proximal obstruction -Continue aspirin, statin - Pain control MARTHA vs CKD: - Suspect this is baseline CKD given echogenicity seen on renal ultrasound. He has had no improvement with volume expansion. Negative for obstruction - Hold further NSAIDs - Monitor creatinine Hypertension: - Continue home meds Dc to SNF Result Diagram: 11/04/18 0549 11/05/18 0505 Subjective 24 Hr Interval Summary Free Text/Dictation Still wtih a bit of pain in calf Able to ambulate Exam/Review of Systems Exam Vitals Vital Signs Date Temp Pulse Resp B/P (MAP) Pulse Ox O2 O2 Flow FiO2 Time Delivery Rate 11/07/18 98.3 91 18 149/83 93 Room Air 07:37 (105) Intake and Output 11/06/18 11/06/18 11/07/18 1515:00 23:00 07:00 IntakeIntake Total 840 ml 240 ml 120 ml OutputOutput Total 150 ml 250 ml 500 ml BalanceBalance 690 ml -10 ml -380 ml Exam AOx3 Pleasant, appropriate RRR Breathign comfortably L foot warm. Ecchymosis surrounding ankle/calf Medications Medication Current Medications IV Flush (NS 3 ml) 3 ml PER PROTOCOL IV ; Start 10/28/18 at 15:30 Hydromorphone HCl (Dilaudid) 0.5 mg Q4H PRN IV .SEVERE PAIN 7-10 Last administered on 11/05/18at 20:41; Admin Dose 0.5 MG; Start 10/28/18 at 15:30 Metoprolol Succinate (Toprol Xl) 50 mg DAILY PO Last administered on 11/07/18 09:24; Admin Dose 50 MG; Start 10/29/18 at 09:00 Pentoxifylline (Trental) 400 mg TID PO Last administered on 11/07/18 09:24; Admin Dose 400 MG; Start 10/28/18 at 21:00 Tramadol HCl (Ultram) 50 mg Q6H PRN PO PAIN Last administered on 11/06/18 05:28; Admin Dose 50 MG; Start 10/28/18 at 16:00 Aspirin (Aspirin) 81 mg DAILY PO Last administered on 11/07/18 09:23; Admin Dose 81 MG; Start 10/29/18 at 09:00 Amlodipine Besylate (Norvasc) 5 mg DAILY PO Last administered on 11/07/18 09:24; Admin Dose 5 MG; Start 10/30/18 at 09:00 Hydralazine HCl (Apresoline) 10 mg Q4H PRN IV ELEVATED SYSTOLIC BP Last administered on 11/01/18 14:29; Admin Dose 10 MG; Start 10/31/18 at 06:30 Hydromorphone HCl (Dilaudid) 0.2 mg Q2 PRN IV PAIN LEVEL 1-5; Start 10/31/18 at 14:00 BLANCA RANDALL MD Nov 07, 2018 12:50
[2018-11-07 14:00] VITALS: BP 127/71; PULSE 88; RESP 18
--- NOTE | 2018-11-08 15:30 | DS ---
Date/Time of Note Date/Time of Note DATE: 11/08/18 TIME: 15:28 Discharge Summary Admission/Discharge Info Admit Date/Time Oct 28, 2018 at 13:54 Discharge Date/Time Nov 07, 2018 at 17:35 Discharge Diagnosis Claudication Patient Condition: Stable Hx of Present Illness This is an 83-year-old male with a history of hypertension who presents with acute pain in his left foot and calf pain. He was in his usual state of health until today. He was walking when he began to feel the acute onset of throbbing pain in his foot which then progressed up into his calf came to the ED. Here he was found to have pulseless foot. He has never complained of claudication or any similar symptoms before. There is no trauma to his affected extremity he received Dilaudid and now feels much better. Hospital Course This is an 83-year-old male with a history of hypertension and tobacco use disorder who presents with L calf pain concerning for acute left lower extremity ischemia Underwent angiography showing limited but adequate flow to foot. Given IV heparin. Foot then became warm and adequately perfused. However he developed a hematoma in his calf that was quite painful for which he remained hosptialized. Cleraed by orthopedics and vascular. Requested dc home rather than SNF L calf pain: - Foot is now warm and seem well perfused - His calf muscle remains painful and is a bit indurated and firm. Duplex negative for clot. CT showing fluid collection of unclear etiology, I asked IR to drain it but Dr Tay says he is unable to. Per Dr Duncan this is not concerning for compartment syndrome. Defer to vascular for management - s/p heparin drip PAD: -JUANJO is 0.3 - Angiography shows stenosis in calf vessels, but no proximal obstruction -Continue aspirin, statin - Pain control MARTHA vs CKD: - Suspect this is baseline CKD given echogenicity seen on renal ultrasound. He has had no improvement with volume expansion. Negative for obstruction - Hold further NSAIDs - Monitor creatinine Hypertension: - Continue home meds Dc to SNF Home Meds Active Scripts Acetaminophen* (Tylophen*) 500 Mg Capsule, 1 CAP PO Q6H PRN for PAIN AND OR ELEVATED TEMP, #30 CAP Prov:MARIBEL DUVALL PA-C 03/08/18 Tramadol HCl (Tramadol HCl) 50 Mg Tablet, 50 MG PO Q6 PRN for PAIN, #20 TAB Prov:MARIBEL DUVALLC 03/08/18 Meloxicam* (Meloxicam*) 7.5 Mg Tablet, 7.5 MG PO DAILY, #30 TAB Prov:CAPRICE LIVINGSTONC 02/03/18 Reported Medications Omeprazole* (Omeprazole*) 20 Mg Capsule.dr, 20 MG PO DAILY, #30 CAP 01/30/17 Meloxicam* (Meloxicam*) 7.5 Mg Tablet, 7.5 MG PO DAILY, #30 TAB 01/30/17 Metoprolol Succinate* (Toprol XL*) 50 Mg Tab.er.24h, 50 MG PO DAILY, #30 TAB 01/30/17 Pentoxifylline* (Pentoxifylline*) 400 Mg Tablet.sa, 400 MG PO TID, TAB 01/30/17 Olmesartan-Hydrochlorothiazide (Benicar HCT) 20-12.5 Mg Tablet, 2 TAB PO DAILY, #30 TAB 01/30/17 Discontinued Reported Medications Donepezil* (Aricept*) 5 Mg Tablet, 5 MG PO DAILY, TAB 01/30/17 Discontinued Scripts Azithromycin* (Zithromax*) 250 Mg Tablet, 250 MG PO .TANNER DIRECTED, #6 TAB TAKE 500 MG (2 TABS) THE FIRST DAY THEN 250 MG (1 TAB) DAYS 2-5 Prov:ALEK CHARLES MD 01/30/17 Primary Care Provider Not On Staff Doctor BLANCA RANDALL MD Nov 08, 2018 15:30
== END 2018-11-07 17:35 | disposition home or self-care (01) | DRG 300 ==
LOC: E/R 11:16 → 2NE 13:54
PROVIDERS: ADMIT Internal Medicine; ATTEND Internal Medicine
PROC: B41DYZZ Fluoroscopy of Aorta and Bilateral Lower Extremity Arteries using Other Contrast (ICD-10-PCS; principal; 2018-10-31 11:00)
DX: I70.222 Atherosclerosis of native arteries of extremities with rest pain, left leg (principal); N17.9 Acute kidney failure, unspecified; I13.0 Hypertensive heart and chronic kidney disease with heart failure and stage 1 through stage 4 chronic kidney disease, or unspecified chronic kidney disease; F17.210 Nicotine dependence, cigarettes, uncomplicated; I11.0 Hypertensive heart disease with heart failure; I50.9 Heart failure, unspecified; N18.9 Chronic kidney disease, unspecified
CPT/HCPCS: 36200; 36415; 71045; 73700; 73706; 75630; 76775; 80048; 81001; 83036; 84155; 84300; 85025; 85610; 85651; 85730; 86022; 86140; 90686; 93005; 93306; 93922; 93926; 93971; 96374; 97162; C1760; C1769; C1887; C1894; J0360; J1170; J1644; J1885; J2250; J3010; J7030; J7040; Q9967

== ENCOUNTER 2019-01-20 06:52 | Inpatient (IN) | payer MEDICARE, OTHER ==
[~2019-01-20] VITALS: Ht 157.5 cm; Wt 52.7 kg
[~2019-01-20 06:52] MED LIST changes: -AZIT250T PO; -DONE5TAB53 PO
[2019-01-20] MEDS ORDERED: ALBUTEROL 0.5% (NEB) 2.5 MG/0.5 ML AMP INH STA (07:13)
[2019-01-20] MEDS ORDERED: IPRATROPIUM (NEB) 0.5 MG/2.5 ML AMP INH STA (07:13)
[2019-01-20] MEDS ORDERED: METHYLPREDNISOLONE 125 MG INJ IV STA (07:13)
[2019-01-20] MEDS ORDERED: FUROSEMIDE 40 MG INJ IV ONE ×2 (08:30→15:00)
[2019-01-20] MEDS ORDERED: CEFTRIAXONE 1 GM/50 ML (PMX) 50 ML IVPB STA (08:32)
[2019-01-20] MEDS ORDERED: AZITHROMYCIN 250 MG TAB PO STA (08:32)
--- NOTE | 2019-01-20 08:43 | ERD ---
ER Documentation Chief Complaint Chief Complaint cough and congestionf for 3 days and sore throat. no chest pain mild sob HPI This is an 83-year-old male with past medical history of hypertension and peripheral vascular disease with a previous abdominal aortogram with bilateral lower extremity runoff performed on October 31, 2017. The patient presents to the emergency department complaining of a productive cough for the past 3 days. He indicates his throat has become sore but this occurred after the coughing. He has no chest pain. He does complain of mild shortness of breath with exertion. He has had no fevers or shaking or chills. He states he quit tobacco in October after the surgery of his lower extremity. Since then he denies any recent hospitalizations. He denies any sick contacts. He denies any pain or swelling of his lower extremities. ROS All systems reviewed and are negative except as per history of present illness. Medications Home Meds Active Scripts Acetaminophen* (Tylophen*) 500 Mg Capsule, 1 CAP PO Q6H PRN for PAIN AND OR ELEVATED TEMP, #30 CAP Prov:MARIBEL DUVALLC 03/08/18 Tramadol HCl (Tramadol HCl) 50 Mg Tablet, 50 MG PO Q6 PRN for PAIN, #20 TAB Prov:MARIBEL DUVALL PA-C 03/08/18 Meloxicam* (Meloxicam*) 7.5 Mg Tablet, 7.5 MG PO DAILY, #30 TAB Prov:CAPRICE LIVINGSTONC 02/03/18 Reported Medications Omeprazole* (Omeprazole*) 20 Mg Capsule.dr, 20 MG PO DAILY, #30 CAP 01/30/17 Meloxicam* (Meloxicam*) 7.5 Mg Tablet, 7.5 MG PO DAILY, #30 TAB 01/30/17 Metoprolol Succinate* (Toprol XL*) 50 Mg Tab.er.24h, 50 MG PO DAILY, #30 TAB 01/30/17 Pentoxifylline* (Pentoxifylline*) 400 Mg Tablet.sa, 400 MG PO TID, TAB 01/30/17 Olmesartan-Hydrochlorothiazide (Benicar HCT) 20-12.5 Mg Tablet, 2 TAB PO DAILY, #30 TAB 01/30/17 Allergies Allergies: Coded Allergies: No Known Drug Allergies (Verified Allergy, Mild, 10/12/15) PMhx/Soc History of Surgery: Yes (prostate removal, gastrectomy 2008) Anesthesia Reaction: No Hx Neurological Disorder: No Hx Respiratory Disorders: No Hx Cardiac Disorders: No (htn) Hx Psychiatric Problems: No Hx Miscellaneous Medical Probl: Yes (See technical record) Hx Alcohol Use: Yes Hx Substance Use: No Hx Tobacco Use: Yes Smoking Status: Former smoker Physical Exam Vitals Vital Signs Date Temp Pulse Resp B/P (MAP) Pulse Ox O2 O2 Flow FiO2 Time Delivery Rate 01/20/19 90 24 160/100 98 Nasal 08:01 (120) Cannula 01/20/19 Nasal 4 08:01 Cannula 01/20/19 Nasal 3.0 07:43 Cannula 01/20/19 88 20 88 Nasal 6.0 07:39 Cannula 01/20/19 98.7 105 22 165/110 88 07:14 (128) Physical Exam Constitutional:Well-developed. Well-nourished. Mild respiratory distress HEENT:Normocephalic. Atraumatic.Pupils were equal round reactive to light. Moist mucous membranes.No tonsillar exudates. Neck: No nuchal rigidity. No lymphadenopathy. No posterior cervical spine tenderness or step-offs. Respiratory: Using accessory muscles of respiration. Patient able to speak in full complete sentences. Bilateral rhonchi. No rales. No wheezing. Cardiovascular: Regular rate regular rhythm.No murmurs. No rubs were appreciated.S1, S2 normal. Distal pulses 1+ bilaterally. GI: Abdomen was soft. Nontender. Non Distended. No pulsatile abdominal masses or bruits. No rebound. No guarding. Bowel sounds were present and normal. Muscle skeletal: Full range of motion of both the upper and lower extremities bilaterally.Normal muscle tone.No assymetrical calf tenderness or swelling. Skin: Perioral cyanosis. No petechia, no purpura. No lesions on the palms or the soles of the feet. No maculopapular rash. NEURO: Patient was alert, awake, orientated x3.No facial droop. Gait observed and normal with no ataxia.Speech had regular rate and rhythm. No focal neurological deficits. Result Diagram: 01/20/1971901/20/19719 Results 24 hrs Laboratory Tests Test 01/20/19 07:20 White Blood Count 6.6 10^3/ul Red Blood Count 4.12 10^6/ul Hemoglobin 12.1 g/dl Hematocrit 37.5 % Mean Corpuscular Volume 91.0 fl Mean Corpuscular Hemoglobin 29.4 pg Mean Corpuscular Hemoglobin Concent 32.3 g/dl Red Cell Distribution Width 13.8 % Platelet Count 229 10^3/UL Mean Platelet Volume 10.6 fl Immature Granulocytes % 0.300 % Neutrophils % 71.2 % Lymphocytes % 15.0 % Monocytes % 8.4 % Eosinophils % 4.3 % Basophils % 0.8 % Nucleated Red Blood Cells % 0.0 /100WBC Immature Granulocytes # 0.020 10^3/ul Neutrophils # 4.7 10^3/ul Lymphocytes # 1.0 10^3/ul Monocytes # 0.6 10^3/ul Eosinophils # 0.3 10^3/ul Basophils # 0.1 10^3/ul Nucleated Red Blood Cells # 0.0 10^3/ul Prothrombin Time 13.6 Sec Prothrombin Time Ratio 1.1 INR International Normalized Ratio 1.03 Activated Partial Thromboplast Time 31.3 Sec Sodium Level 143 mmol/L Potassium Level 4.6 mmol/L Chloride Level 111 mmol/L Carbon Dioxide Level 23 mmol/L Anion Gap 9 Blood Urea Nitrogen 37 mg/dl Creatinine 1.93 mg/dl Est Glomerular Filtrat Rate mL/min mL/min Glucose Level 101 mg/dl Calcium Level 8.8 mg/dl Total Bilirubin 0.3 mg/dl Direct Bilirubin 0.00 mg/dl Indirect Bilirubin 0.3 mg/dl Aspartate Amino Transf (AST/SGOT) 22 IU/L Alanine Aminotransferase (ALT/SGPT) 10 IU/L Alkaline Phosphatase 91 IU/L Creatine Kinase 50 IU/L Creatine Kinase Index 2.8 Creatinine Kinase MB (Mass) 1.41 ng/ml Troponin I 0.047 ng/ml B-Type Natriuretic Peptide 6730 PG/ML Total Protein 7.4 g/dl Albumin 3.7 g/dl Globulin 3.70 g/dl Albumin/Globulin Ratio 1.00 Current Medications Medications Dose Sig/Cayla Start Time Status Last (Trade) Ordered Route PRN Stop Time Admin Dose Reason Admin Albuterol 10 mg ONCE STAT 01/20/19 DC 01/20/19 (Proventil INH 07:13 07:39 0.5% (Neb)) 01/20/19 07:20 Ipratropium 1 mg ONCE STAT 01/20/19 DC 01/20/19 [place] [facility] 07:13 07:39 (Atrovent 01/20/19 07:20 0.02% (Neb)) 125 mg ONCE STAT 01/20/19 DC 01/20/19 Methylprednis IV 07:13 07:38 olone Sodium 01/20/19 07:20 Succinate (Solu-Medrol) Furosemide 40 mg ONCE ONCE 01/20/19 DC (Lasix) IV 08:30 01/20/19 08:31 Procedures/MDM The patient presented to the emergency department with dyspnea. My differential diagnosis included but was not limited to upper airway obstruction, CHF, pul monary embolism, cardiac ischemia, pneumonia, pneumothorax, anemia, drug overdose, pulmonary edema, COPD or asthma. Patient was hypoxic on room air satting at 86%. Patient was cyanotic. He immediately was placed on low flow supplemental oxygen requiring 6 L nasal cannula. His pulse ox had improved and he was no longer cyanotic. He received continuous nebulizer treatments of albuterol and Atrovent and immediately was placed on a state pilot continuous pulse oximetry and IV access had been established by nursing staff. The patient's BNP was elevated and chest radiograph showed pulmonary vascular congestion which was concerning for new onset congestive heart failure. The patient was given IV Lasix and his blood pressure had improved. In addition there was questionable infiltrates and given his history and physical exam findings blood cultures were obtained and the patient was treated for a community-acquired pneumonia given oral azithromycin and IV Rocephin. 12 Lead EKG tracing ordered and reviewed by myself showed: Normal sinus rhythm of 100 bpm and no arrhythmia. [place] interval normal. QRS duration normal. No ST segment elevation. Left ventricular hypertrophy. QT was prolonged No ST segment depression. No changes consistent with acute ischemia. The patient will be admitted to the hospitalist in serious condition with an anticipated stay of greater than 2 midnights. He will require continuous nebulizer treatments which have been given in the emergency department but given that he has persistent hypoxia on room air I do not feel was safe to be discharged home. Critical Care: Time: 45 minutes Treatments/Evaluations: Close monitoring and treatment of unstable vital signs, cardiorespiratory, and neurologic status, while maintaining tight balance of fluid, respiratory, and cardiac interventions. Time does not include performing any of the above billable procedures. Departure Diagnosis: Primary Impression: CHF (congestive heart failure) Heart failure type: unspecified Heart failure chronicity: acute Qualified Codes: I50.9 - Heart failure, unspecified Additional Impression: Pneumonia Pneumonia type: due to unspecified organism Laterality: bilateral Lung location: unspecified part of lung Qualified Codes: J18.9 - Pneumonia, unspecified organism Condition: Serious SHAE ARMSTRONG MD January 20, 2019 08:43
[2019-01-20] MEDS ORDERED: ACETAMINOPHEN 325 MG TAB PO PRN ×2 (09:00→11:00)
[2019-01-20] MEDS ORDERED: ONDANSETRON 4 MG INJ IV PRN ×2 (09:00→11:00)
[2019-01-20] MEDS ORDERED: METO-319 PO (09:15)
[2019-01-20] MEDS ORDERED: ASPI81TA52 PO (09:15)
[2019-01-20] MEDS ORDERED: PENT400T9 PO (09:15)
[2019-01-20] MEDS ORDERED: AMLO-147 PO (09:15)
[2019-01-20] MEDS ORDERED: OMEP20CA16 PO (09:16)
[2019-01-20] MEDS ORDERED: MELO7.5T38 PO (09:16)
[2019-01-20] MEDS ORDERED: DONE5TAB53 PO (09:16)
[2019-01-20] MEDS ORDERED: LINA145C PO (09:17)
[2019-01-20] MEDS ORDERED: LOSA100T15 PO (09:17)
[2019-01-20] MEDS ORDERED: NEBI10TA2 PO (09:17)
[2019-01-20] MEDS ORDERED: TAMS-14 PO (09:18)
[2019-01-20] MEDS ORDERED: RANO500T2 PO (09:18)
[2019-01-20] MEDS ORDERED: CYCL1DRO BOTH EYES (09:19)
[2019-01-20] MEDS ORDERED: BUDE6HFA INHALATION (09:19)
[2019-01-20] MEDS ORDERED: NAPR-688 PO (09:20)
[2019-01-20] MEDS ORDERED: DICL100G37 TOP (09:20)
--- NOTE | 2019-01-20 10:34 | HP ---
Date/Time of Note Date/Time of Note DATE: 01/20/19 TIME: 10:34 Assessment/Plan VTE Prophylaxis Pharmacological prophylaxis: heparin Lines/Catheters IV Catheter Type (from [facility]): Saline Lock Assessment/Plan Hospital Course 83-year-old male with comorbidities including hypertension, CKD, peripheral artery disease, and COPD who came to the emergency room with chief complaint of dyspnea with evidence of underlying hypoxia and pulmonary infiltrates, who will be admitted to inpatient setting for further treatment and evaluation. 1. Acute respiratory failure. -Hypoxic -Etiology unclear. May be multifactorial in origin including underlying CHF plus CAP. -Continue supplemental oxygen. -Continue inhaled bronchodilators. 2. Acute pulmonary infiltrates. -Fluid versus pneumonia. -Continue antimicrobials for underlying CAP pneumonia. -Obtain procalcitonin level. -Continue diuretic therapy while carefully monitoring renal function. 3. Suspect underlying CHF exacerbation, acute on chronic systolic dysfunction. -Continue diuretic therapy while carefully monitoring renal function. -Obtain cardiology consult. -Will not repeat a 2D echocardiogram since the patient recently had an echocardiogram done in October 2018. 4. Peripheral artery disease. -Continue aspirin and pentoxifylline. 5. Hypertension. -Resume antihypertensives. -Hold ARBs because of worsening renal function. 6. Acute on chronic kidney disease. -Hold nephrotoxic medications. -Monitor BUN and creatinine closely. 7. COPD. -Start the patient on inhaled bronchodilators; JESUS and LABA. -Start tapering dose of steroids if the patient has significant bronchospasms. Plan: The patient will be admitted to inpatient telemetry floor. The patient will be started on a low-cholesterol diet. The patient will be started on DVT prophylaxis. The patient will remain a full code. Activities will be as tolerated. The rest of the patient's management will be based on the clinical course, inputs from consultants, and the results of diagnostic studies. Based on the patient's clinical presentation, he most probably requires at least 2 midnights' stay for further management and evaluation of his clinical presentation. The patient was seen in collaboration with Dr. Campuzano. Result Diagram: 01/20/19 0720 01/20/19 0720 Results 24hrs Laboratory Tests Test 01/20/19 07:20 White Blood Count 6.6 # Red Blood Count 4.12 L Hemoglobin 12.1 L Hematocrit 37.5 L Mean Corpuscular Volume 91.0 Mean Corpuscular Hemoglobin 29.4 Mean Corpuscular Hemoglobin Concent 32.3 Red Cell Distribution Width 13.8 Platelet Count 229 Mean Platelet Volume 10.6 H Immature Granulocytes % 0.300 Neutrophils % 71.2 Lymphocytes % 15.0 Monocytes % 8.4 Eosinophils % 4.3 Basophils % 0.8 Nucleated Red Blood Cells % 0.0 Immature Granulocytes # 0.020 Neutrophils # 4.7 Lymphocytes # 1.0 Monocytes # 0.6 Eosinophils # 0.3 Basophils # 0.1 Nucleated Red Blood Cells # 0.0 Prothrombin Time 13.6 Prothrombin Time Ratio 1.1 INR International Normalized Ratio 1.03 Activated Partial Thromboplast Time 31.3 Sodium Level 143 Potassium Level 4.6 Chloride Level 111 H Carbon Dioxide Level 23 Anion Gap 9 Blood Urea Nitrogen 37 H Creatinine 1.93 H Est Glomerular Filtrat Rate mL/min Glucose Level 101 Calcium Level 8.8 Total Bilirubin 0.3 Direct Bilirubin 0.00 Indirect Bilirubin 0.3 Aspartate Amino Transf (AST/SGOT) 22 Alanine Aminotransferase (ALT/SGPT) 10 L Alkaline Phosphatase 91 Creatine Kinase 50 Creatine Kinase Index 2.8 Creatinine Kinase MB (Mass) 1.41 Troponin I 0.047 B-Type Natriuretic Peptide 6730 H Total Protein 7.4 Albumin 3.7 Globulin 3.70 H Albumin/Globulin Ratio 1.00 HPI/ROS Admit Date/Time Admit Date/Time Hx of Present Illness Reason for admission: Hypoxia. Pulmonary infiltrates. This is an 83-year-old M[place] male with past medical history of hypertension, chronic kidney disease, prostate hypertrophy, COPD, and peripheral artery disease. The patient came to the emergency room with chief complaint of dyspnea that has been going on for the past 3 days. The patient also verbalized to frequent coughing spells and a sore throat. The patient denied any fevers but he was complaining of some chills. He denied any nausea/vomiting. He denied any sick contacts. He denied any diarrhea or dysuria. In the emergency room, the patient's WBC was within normal limits. The patient had a BNP of 6730. The patient's chest x-ray was showing interval increase pulmonary congestion, interstitial infiltrates, or edema along with small bilateral pleural effusions. The patient was given a single dose of IV Lasix 40 mg along with IV ceftriaxone and Zithromax after getting blood cultures. ROS Constitutional: chills Eyes: no complaints ENT: no complaints, sore throat Respiratory: cough, shortness of breath Cardiovascular: chest pain Gastrointestinal: no complaints Genitourinary: no complaints Musculoskeletal: no complaints Skin: no complaints Neurologic: no complaints Endocrine: no complaints Lymphatic: no complaints Psychological: no complaints Immunologic: no complaints PMH/Family/Social Past Medical History 1. Peripheral artery disease. 2. Chronic kidney disease 3. Hypertension. 4. Prostate hypertrophy. 5. Cardiomyopathy with ejection fraction of 40 to 45%. 6. COPD. Medications Current Medications Ondansetron HCl (Zofran Inj) 4 mg ER BRIDGE PRN IV NAUSEA/VOMITING; Start 01/20/19 at 09:00; Stop 01/21/19 at 08:59 Acetaminophen (Tylenol Tab) 650 mg ER BRIDGE PRN PO .MILD PAIN 1-3 OR TEMP; Start 01/20/19 at 09:00; Stop 01/21/19 at 08:59 Coded Allergies: No Known Drug Allergies (Verified Allergy, Mild, 01/20/19) Past Surgical History 1. Left lower extremity surgery. 2. Abdominal surgery for apparent tumor removal. 3. Prostate surgery. Family History Significant Family History: no pertinent family hx Social History The patient lives at home with his . Alcohol Use: none Smoking Status: Former smoker Drug Use: none Exam/Review of Systems Vital Signs Vitals Vital Signs Date Temp Pulse Resp B/P (MAP) Pulse Ox O2 O2 Flow FiO2 Time Delivery Rate 01/20/19 90 24 160/100 98 Nasal 08:01 (120) Cannula 01/20/19 4 08:01 01/20/19 98.7 07:14 Exam Exam General: Adequately build 83 year-old male lying in bed in no apparent distress. HEENT: Normocephalic, atraumatic. Eyes: Anicteric sclerae, conjunctivae clear. ENT: Nasal septum midline, oral mucosa moist. Neck supple. Respiratory: Bilaterally diminished breath sounds. No use of accessory muscles of respiration. B/L rales. Cardiovascular: S1, S2 heard. Regular rate and rhythm. Abdomen: Soft, nontender, and nondistended. Bowel sounds positive in all 4 quadrants. Genitourinary: Deferred. Extremities: No cyanosis, no clubbing, no edema. Left lower extremity Cam boot on. Neurologic: Cranial nerves II through XII grossly intact. The patient is awake, alert, and oriented. Skin: Normal skin turgor. No skin rashes. PARAS MCDONALD NP January 20, 2019 10:34
[2019-01-20] MEDS ORDERED: NACL 0.9% 3 ML SYG IV SCH (11:00)
[2019-01-20] MEDS ORDERED: hydrALAzine 20 MG INJ IV PRN (12:30)
[2019-01-20] MEDS ORDERED: ALBUTEROL/IPRATROPIUM (NEB) 3 ML AMP HHN PRN (13:00)
--- NOTE | 2019-01-20 14:35 | CONS ---
DATE OF ADMISSION: 01/20/2019 DATE OF CONSULTATION: 01/20/2019 REASON FOR CONSULTATION: Shortness of breath, assess congestive heart failure. REQUESTING PHYSICIAN: Obed Armstrong from the hospitalist service. HISTORY OF PRESENT ILLNESS: Mr. Jay is an 83-year-old male with history of hypertension and peripheral arterial disease, recently admitted for claudication symptoms versus acute arterial insufficiency. He underwent angiogram revealing adequate perfusion to the foot with some peripheral arterial disease. The patient medically managed and discharged to outpatient followup, now represents with complaints of a cough ongoing for multiple days associated shortness of breath, cough is nonproductive of sputum. The patient had chills at home, but denies actual fevers. The patient additionally denies chest pain. Upon arrival, temperature 98.7, blood pressure 165/110, pulse 105, respiratory rate 22, saturating at 88%. The patient's labs revealed a white count 6.6, hemoglobin 12.1, platelet count 229. Sodium of 143, potassium 4.6, creatinine 1.93, BUN 37, AST 22, ALT 10. INR of 1. The patient underwent a chest x-ray, interpreted as having mild increase in pulmonary congestion, infiltrates or edema and small bilateral effusions and I would also query a possibility of a right lower lobe infiltrate. The patient has been treated with Lasix, Ceftriaxone, azithromycin, Atrovent, Solu-Medrol and now awaits admit to the floor. PAST MEDICAL HISTORY: As above in HPI. MEDICATIONS CURRENTLY IN HOSPITAL: 1. Norvasc 10 mg daily. 2. Aspirin 81 mg daily. 3. Aricept. 4. Toprol-XL 50 mg daily. 5. Flomax. 6. Cyclosporine. 7. Ranexa. 8. Pentoxifylline 9. Ceftriaxone. 10. Azithromycin. ALLERGIES: NO KNOWN DRUG ALLERGIES. SOCIAL HISTORY: Positive tobacco, quit x1 to 2 weeks. Social ETOH. No illicit drug use. FAMILY HISTORY: No sudden cardiac or early CAD. REVIEW OF SYSTEMS: As above in HPI. CONSTITUTIONAL: No fevers, chills. PULMONARY: Shortness of breath. CARDIOVASCULAR: No current chest pain. GASTROINTESTINAL: No vomiting. GENITOURINARY: No hematuria. MUSCULOSKELETAL: Degenerative joint disease. PSYCHIATRIC: The patient has depression. NEUROLOGIC: No documented CVA. PHYSICAL EXAMINATION VITAL SIGNS: Temperature of 98.8, blood pressure most recently 140/82, pulse 100, respiratory rate 22, saturation 91% on 3 liters. GENERAL: The patient is alert, awake, complaining of cough, shortness of breath. NECK: JVP approximately 9 cm water. CHEST: Fair air movement throughout. HEART: Regular rate and rhythm. Normal S1, increased S2, I/ systolic murmur, nondisplaced PMI. ABDOMEN: Positive bowel sounds, soft. EXTREMITIES: No edema, somewhat difficult to palpate his pulses bilateral posterior tibial, dorsalis pedis. LABORATORY DATA: As above in HPI. No further labs for my review at this time. IMAGING STUDIES: As above in HPI. No further imaging studies for my review at this time. ECG: As above in HPI. No further electrograms for my review at this time. IMPRESSION: 1. Shortness of breath, assess congestive heart failure. 2. Increased BNP, assess for congestive heart failure. 3. Probable chronic obstructive pulmonary disease. 4. Possible pneumonia/upper respiratory infection. 5. Renal failure. 6. Peripheral arterial disease. 7. Hypertension. 8. Remote tobacco intake. RECOMMENDATIONS: 1. At this time, patient will be admitted to telemetry or admitted to the floor as telemetry is possibly overloaded at this time. Would continue the patient's current antihypertensives with Toprol, Norvasc, following blood pressure closely. 2. Would place patient on gentle Lasix diuresis and follow response and shortness of breath. 3. Agree with initiation of antibiotics, bronchodilators, and steroids for probable treatment of COPD and upper respiratory tract infection. 4. Patient is status post 2D echo from 10/2018, at that time revealing a very mildly depressed EF of 40% to 45% with associated mild aortic and trace mitral regurgitation. Thank you for allowing me to take part in the care of this patient. I will continue to follow along very closely with you. Further recommendations will be made based on the patient's hospital clinical course. Dictated By: ELISABET RUSSO/BRISEIDA Conf#: [id number] DID#: [id number] CC: SHAE ARMSTRONG MD; OBED ARMSTRONG SIGNS CLEANER;*EndCC* MTDD
[2019-01-20 14:51] VITALS: BP 149/86; PULSE 89; RESP 16
[2019-01-20] MEDS: CEFTRIAXONE 1 GM/50 ML (PMX) 50 ML IVPB SCH (16:31)
[2019-01-20 16:40] VITALS: Ht 157.5 cm; Wt 52.7 kg
[2019-01-20] MEDS: AZITHROMYCIN 500MG/NS (PMX) 250 ML IVPB SCH (18:38)
[2019-01-20 20:00] VITALS: BP 134/82; PULSE 96; RESP 18
[2019-01-20] MEDS: PENTOXIFYLLINE (SR) 400 MG TAB PO SCH (20:46)
[2019-01-20] MEDS: CYCLOSPORINE 0.05% OPH DROPERETTE BOTH EYES SCH (20:52)
[2019-01-20] MEDS: RANOLAZINE (SR) 500 MG TAB PO SCH (20:52)
[2019-01-20] MEDS: ARFORMOTEROL TARTRATE 15MCG/2 ML AMP NEB SCH (21:00)
[2019-01-20] MEDS: ALBUTEROL/IPRATROPIUM (NEB) 3 ML AMP HHN SCH (21:42)
[2019-01-21] VITALS (8 sets, daily range): BP systolic 115–162; BP diastolic 62–96; PULSE 93–110; RESP 17–18
[2019-01-21] MEDS: ARFORMOTEROL TARTRATE 15MCG/2 ML AMP NEB SCH ×2 (08:09→19:18)
[2019-01-21] MEDS: ALBUTEROL/IPRATROPIUM (NEB) 3 ML AMP HHN SCH ×3 (08:09→19:18)
[2019-01-21] MEDS: PENTOXIFYLLINE (SR) 400 MG TAB PO SCH ×3 (09:37→19:04)
[2019-01-21] MEDS: FUROSEMIDE 40 MG INJ IV SCH (09:37)
[2019-01-21] MEDS: RANOLAZINE (SR) 500 MG TAB PO SCH ×2 (09:37→20:32)
[2019-01-21] MEDS: ASPIRIN (EC) 81 MG TAB PO SCH (09:37)
[2019-01-21] MEDS: CYCLOSPORINE 0.05% OPH DROPERETTE BOTH EYES SCH ×2 (09:37→20:32)
[2019-01-21] MEDS: METOPROLOL (XL) 50 MG TAB PO SCH (09:38)
[2019-01-21] MEDS: AMLODIPINE 10 MG TAB PO SCH (09:38)
[2019-01-21] MEDS: DONEPEZIL 5 MG TAB PO SCH (09:38)
[2019-01-21] MEDS: TAMSULOSIN (SR) 0.4 MG CAP PO SCH (09:38)
--- NOTE | 2019-01-21 11:56 | CONS ---
Consult Date/Type/Reason Admit Date/Time January 20, 2019 at 09:01 Initial Consult Date Date/Time of Note DATE: 01/21/19 TIME: 11:54 Subjective NO acute events - pt comfortable - no CP now - improved SOB - doubt ACS. ROS: No fever, no chills, no nausea, no vomiting, no diarrhea/constipation No recent weight changes No chest pain, no PND, no orthopnea+ SOB with wheezing, better today No dizziness, blurred vision No thirst, no heat or cold intolerance Objective Vitals Vital Signs Date Temp Pulse Resp B/P (MAP) Pulse Ox O2 O2 Flow FiO2 Time Delivery Rate 01/21/19 102 18 94 21 08:19 01/21/19 97.7 153/96 08:00 (115) 01/20/19 Nasal 3.0 11:49 Cannula Intake and Output 01/20/19 01/20/19 01/21/19 1515:00 23:00 07:00 IntakeIntake Total 770 ml 250 ml OutputOutput Total 1100 ml BalanceBalance 770 ml -850 ml Exam General: WN/WD/NAD, AOx 3 HEENT: Unicetric/atraumatic/EOMI (follows commands) NECK: JVD elevated, no thyromegaly Lymph: no lymphadenopathy HEART: regular with no S3, II/ systolic murmur at apex, PMI L LUNGS: Coarse sounds with wheezing ABD: soft, NT, ND, +BS : Intact Neuro: non focal SKIN: chronic changes EXT: trace edema Results/Medications Result Diagram: 01/21/19 0450 01/21/19 0450 Results 24 hrs Laboratory Tests Test 01/20/19 18:23 01/21/19 00:59 01/21/19 04:50 Creatine Kinase 50 45 44 Creatine Kinase Index 3.2 3.1 3.5 Creatinine Kinase MB (Mass) 1.59 1.41 1.53 Troponin I 0.053 0.060 0.072 White Blood Count 10.7 # Red Blood Count 3.85 L Hemoglobin 11.2 L Hematocrit 34.4 L Mean Corpuscular Volume 89.4 Mean Corpuscular Hemoglobin 29.1 Mean Corpuscular Hemoglobin Concent 32.6 Red Cell Distribution Width 14.0 Platelet Count 262 Mean Platelet Volume 10.5 H Immature Granulocytes % 0.400 Neutrophils % 89.5 H Lymphocytes % 7.0 L Monocytes % 3.0 Eosinophils % 0.0 Basophils % 0.1 Nucleated Red Blood Cells % 0.0 Immature Granulocytes # 0.040 H Neutrophils # 9.6 H Lymphocytes # 0.8 Monocytes # 0.3 Eosinophils # 0.0 Basophils # 0.0 Nucleated Red Blood Cells # 0.0 Sodium Level 141 Potassium Level 4.7 Chloride Level 108 Carbon Dioxide Level 24 Anion Gap 9 Blood Urea Nitrogen 49 #H Creatinine 2.14 H Est Glomerular Filtrat Rate mL/min Glucose Level 129 Calcium Level 8.7 Phosphorus Level 3.8 Magnesium Level 1.6 L Total Bilirubin 0.2 Direct Bilirubin 0.00 Indirect Bilirubin 0.2 Aspartate Amino Transf (AST/SGOT) 19 Alanine Aminotransferase (ALT/SGPT) 18 Alkaline Phosphatase 90 B-Type Natriuretic Peptide 9650 H Total Protein 7.0 Albumin 3.5 Globulin 3.50 H Albumin/Globulin Ratio 1.00 Triglycerides Level 90 Cholesterol Level 179 LDL Cholesterol, Calculated 110 HDL Cholesterol 51 Cholesterol/HDL Ratio 3.5 Home Meds Reported Medications Naproxen* (Naproxen*) 500 Mg Tablet, 500 MG PO BID PRN for PAIN, TAB 01/20/19 Diclofenac Sodium* (Voltaren* Gel) 1% -100 Gm Gel, 2 GM TOP QID, #1 TUB 01/20/19 Budesonide-Formoterol Fumarate* (Symbicort*) 160-4.5 Hfa.aer.ad, 2 PUFF INHALATION BID, #1 EACH 01/20/19 Cyclosporine (RESTASIS) 1 Each Droperette, 1 DROP BOTH EYES Q12, #1 BOX 01/20/19 Ranolazine* (Ranexa*) 500 Mg Tab.sr.12h, 500 MG PO Q12, TAB 01/20/19 Tamsulosin Hcl* (Flomax*) 0.4 Mg Cap.er.24h, 0.4 MG PO DAILY, CAP 01/20/19 Linaclotide (LINZESS) 145 Mcg Capsule, 145 MCG PO DAILY, #30 CAP 01/20/19 Nebivolol Hcl* (Bystolic*) 10 Mg Tablet, 10 MG PO DAILY, #30 TAB 01/20/19 Losartan Potassium* (Losartan Potassium*) 100 Mg Tablet, 100 MG PO DAILY, TAB 01/20/19 Omeprazole* (Omeprazole*) 20 Mg Capsule.dr, 20 MG PO DAILY, #30 CAP 01/20/19 Donepezil* (Aricept*) 5 Mg Tablet, 5 MG PO DAILY, TAB 01/20/19 Meloxicam* (Meloxicam*) 7.5 Mg Tablet, 7.5 MG PO DAILY, #30 TAB 01/20/19 Aspirin (Low Dose Aspirin) 81 Mg Tablet.dr, 81 MG PO DAILY, #30 TAB 01/20/19 Amlodipine Besylate* (Amlodipine Besylate*) 10 Mg Tablet, 10 MG PO DAILY, #30 TAB 01/20/19 Metoprolol Succinate* (Toprol XL*) 50 Mg Tab.er.24h, 50 MG PO DAILY, #30 TAB 01/20/19 Pentoxifylline* (Pentoxifylline*) 400 Mg Tablet.sa, 400 MG PO WITH MEALS, TAB 01/20/19 Discontinued Reported Medications Omeprazole* (Omeprazole*) 20 Mg Capsule.dr, 20 MG PO DAILY, #30 CAP 01/30/17 Meloxicam* (Meloxicam*) 7.5 Mg Tablet, 7.5 MG PO DAILY, #30 TAB 01/30/17 Metoprolol Succinate* (Toprol XL*) 50 Mg Tab.er.24h, 50 MG PO DAILY, #30 TAB 01/30/17 Pentoxifylline* (Pentoxifylline*) 400 Mg Tablet.sa, 400 MG PO TID, TAB 01/30/17 Olmesartan-Hydrochlorothiazide (Benicar HCT) 20-12.5 Mg Tablet, 2 TAB PO DAILY, #30 TAB 01/30/17 Discontinued Scripts Acetaminophen* (Tylophen*) 500 Mg Capsule, 1 CAP PO Q6H PRN for PAIN AND OR ELEVATED TEMP, #30 CAP Prov:MARIBEL DUVALL PA-C 03/08/18 Tramadol HCl (Tramadol HCl) 50 Mg Tablet, 50 MG PO Q6 PRN for PAIN, #20 TAB Prov:MARIBEL DUVALL PA-C 03/08/18 Meloxicam* (Meloxicam*) 7.5 Mg Tablet, 7.5 MG PO DAILY, #30 TAB Prov:CAPRICE LIVINGSTONC 02/03/18 Medications Current Medications IV Flush (NS 3 ml) 3 ml PER PROTOCOL IV ; Start 01/20/19 at 11:00 Ondansetron HCl (Zofran Inj) 4 mg Q6H PRN IV NAUSEA/VOMITING; Start 01/20/19 at 11:00 Acetaminophen (Tylenol Tab) 650 mg Q6H PRN PO .PAIN 1-3 OR TEMP; Start 01/20/19 at 11:00 Amlodipine Besylate (Norvasc) 10 mg DAILY PO Last administered on 01/21/19 09:38; Admin Dose 10 MG; Start 01/21/19 at 09:00 Aspirin (Halfprin) 81 mg DAILY PO Last administered on 01/21/19 09:37; Admin Dose 81 MG; Start 01/21/19 at 09:00 Cyclosporine (Restasis) 1 drop Q12 BOTH EYES Last administered on 01/21/19 09:37; Admin Dose 1 DROP; Start 01/20/19 at 21:00 Donepezil HCl (Aricept) 5 mg DAILY PO Last administered on 01/21/19 09:38; Admin Dose 5 MG; Start 01/21/19 at 09:00 Metoprolol Succinate (Toprol Xl) 50 mg DAILY PO Last administered on 01/21/19 09:38; Admin Dose 50 MG; Start 01/21/19 at 09:00 Pentoxifylline (Trental) 400 mg WITH MEALS PO Last administered on 01/21/19 09:37; Admin Dose 400 MG; Start 01/20/19 at 18:00 Ranolazine (Ranexa) 500 mg Q12 PO Last administered on 01/21/19 09:37; Admin Dose 500 MG; Start 01/20/19 at 21:00 Tamsulosin HCl (Flomax) 0.4 mg DAILY PO Last administered on 01/21/19 09:38; Admin Dose 0.4 MG; Start 01/21/19 at 09:00 Albuterol/ Ipratropium (Duoneb) 3 ml Q6HWA RESP THERAPY HHN Last administered on 01/21/19 08:09; Admin Dose 3 ML; Start 01/20/19 at 14:00 Albuterol/ Ipratropium (Duoneb) 3 ml Q2H RESP THERAPY PRN HHN SHORTNESS OF BREATH; Start 01/20/19 at 13:00 Arformoterol Tartrate (Brovana (Neb)) 2 ml BID NEB Last administered on 01/21/19at 08:09; Admin Dose 2 ML; Start 01/20/19 at 21:00 Hydralazine HCl (Apresoline) 10 mg Q6H PRN IV SBP>160; Start 01/20/19 at 12:30 Ceftriaxone Sodium 50 ml @ 100 mls/hr Q24H IVPB Last administered on 01/20/19at 16:31; Admin Dose 100 MLS/HR; Start 01/20/19 at 13:00 Azithromycin 250 ml @ 250 mls/hr Q24H IVPB Last administered on 01/20/19at 18:38; Admin Dose 250 MLS/HR; Start 01/20/19 at 13:00 Furosemide (Lasix) 40 mg DAILY IV Last administered on 01/21/19at 09:37; Admin Dose 40 MG; Start 01/21/19 at 09:00 Assessment/Plan Hospital Course (Demo Recall) 1. Shortness of breath, assess congestive heart failure - does not appear to be in CHF clinically, will keep euvolemic now. 2. Increased BNP, assess for congestive heart failure - con't to monitor - better now. 3. Probable chronic obstructive pulmonary disease - on Rx, feels better todya - con't bronchodilators. 4. Possible pneumonia/upper respiratory infection - beny nti-Bx, no fever now. 5. Renal failure - CR 2.14 - avoid nephrotoxic meds. 6. Peripheral arterial disease- on meds now. 7. Hypertension - con;t Rx. 8. Remote tobacco intake RICK PEREZ MD January 21, 2019 11:56
[2019-01-21] MEDS: CEFTRIAXONE 1 GM/50 ML (PMX) 50 ML IVPB SCH (12:14)
[2019-01-21] MEDS: AZITHROMYCIN 500MG/NS (PMX) 250 ML IVPB SCH (13:45)
--- NOTE | 2019-01-21 14:09 | PN ---
Date/Time of Note Date/Time of Note DATE: 01/21/19 TIME: 14:05 Assessment/Plan VTE Prophylaxis Risk score (from Ns)>0 risk: 5 SCD applied (from Nsg): Yes Pharmacological prophylaxis: LMWH Lines/Catheters IV Catheter Type (from Nrs): Saline Lock Urinary Cath still in place: No Assessment/Plan Hospital Course SUBJECTIVE: OBJECTIVE: Physical Exam General: Adequately build 83 year-old male lying in bed in no apparent distress. HEENT: Normocephalic, atraumatic. Eyes: Anicteric sclerae, conjunctivae clear. ENT: Nasal septum midline, oral mucosa moist. Neck supple. Respiratory: Bilaterally diminished breath sounds. No use of accessory muscles of respiration. B/L rales. Cardiovascular: S1, S2 heard. Regular rate and rhythm. Abdomen: Soft, nontender, and nondistended. Bowel sounds positive in all 4 quadrants. Genitourinary: Deferred. Extremities: No cyanosis, no clubbing, no edema. Left lower extremity Cam boot on. Neurologic: Cranial nerves II through XII grossly intact. The patient is awake, alert, and oriented. Skin: Normal skin turgor. No skin rashes. Labs & Vitals per chart ASSESSMENT & PLAN 83-year-old male with comorbidities including hypertension, CKD, peripheral artery disease, and COPD who came to the emergency room with chief complaint of dyspnea with evidence of underlying hypoxia and pulmonary infiltrates, who was admitted to inpatient setting for further treatment and evaluation. 1. Acute respiratory failure. -Hypoxic -Etiology unclear. May be multifactorial in origin including underlying bilateral pleural effusions. -Continue supplemental oxygen. -Continue inhaled bronchodilators. -Continue diuresis. 2. Bilateral pleural effusions. -Continue diuresis while carefully monitoring renal function. -Procalcitonin level less than 0.1. Discontinue antimicrobials. - 3. Suspect underlying CHF exacerbation, acute on chronic systolic dysfunction. -Continue diuretic therapy while carefully monitoring renal function. -Cardiology following. 4. Peripheral artery disease. -Continue aspirin and pentoxifylline. 5. Hypertension. -Continue antihypertensives. -Hold ARBs because of worsening renal function. 6. Acute on chronic kidney disease. -Hold nephrotoxic medications. -Monitor BUN and creatinine closely. -Being followed by nephrology. 7. COPD. -Continue the patient on inhaled bronchodilators; JESUS and LABA. 8. Fluids, electrolytes, and nutrition. -Low-cholesterol diet. 9. DVT prophylaxis. -Subcutaneous heparin. 10. Plan. -Continue diuresis while clinically monitoring renal function. -Discontinue antibiotic therapy. -Await clinical improvement before discharging the patient home. The patient was seen in collaboration with Dr. Campuzano. Result Diagram: 01/21/19 0450 01/21/19 0450 Results 24hrs Laboratory Tests Test 01/20/19 18:23 01/21/19 00:59 01/21/19 04:50 Creatine Kinase 50 45 44 Creatine Kinase Index 3.2 3.1 3.5 Creatinine Kinase MB (Mass) 1.59 1.41 1.53 Troponin I 0.053 0.060 0.072 White Blood Count 10.7 # Red Blood Count 3.85 L Hemoglobin 11.2 L Hematocrit 34.4 L Mean Corpuscular Volume 89.4 Mean Corpuscular Hemoglobin 29.1 Mean Corpuscular Hemoglobin Concent 32.6 Red Cell Distribution Width 14.0 Platelet Count 262 Mean Platelet Volume 10.5 H Immature Granulocytes % 0.400 Neutrophils % 89.5 H Lymphocytes % 7.0 L Monocytes % 3.0 Eosinophils % 0.0 Basophils % 0.1 Nucleated Red Blood Cells % 0.0 Immature Granulocytes # 0.040 H Neutrophils # 9.6 H Lymphocytes # 0.8 Monocytes # 0.3 Eosinophils # 0.0 Basophils # 0.0 Nucleated Red Blood Cells # 0.0 Sodium Level 141 Potassium Level 4.7 Chloride Level 108 Carbon Dioxide Level 24 Anion Gap 9 Blood Urea Nitrogen 49 #H Creatinine 2.14 H Est Glomerular Filtrat Rate mL/min Glucose Level 129 Calcium Level 8.7 Phosphorus Level 3.8 Magnesium Level 1.6 L Total Bilirubin 0.2 Direct Bilirubin 0.00 Indirect Bilirubin 0.2 Aspartate Amino Transf (AST/SGOT) 19 Alanine Aminotransferase (ALT/SGPT) 18 Alkaline Phosphatase 90 B-Type Natriuretic Peptide 9650 H Total Protein 7.0 Albumin 3.5 Globulin 3.50 H Albumin/Globulin Ratio 1.00 Triglycerides Level 90 Cholesterol Level 179 LDL Cholesterol, Calculated 110 HDL Cholesterol 51 Cholesterol/HDL Ratio 3.5 Exam/Review of Systems Exam Vitals Vital Signs Date Temp Pulse Resp B/P (MAP) Pulse Ox O2 O2 Flow FiO2 Time Delivery Rate 01/21/19 106 18 94 21 13:16 01/21/19 97.7 153/96 08:00 (115) 01/20/19 Nasal 3.0 11:49 Cannula Intake and Output 01/20/19 01/20/19 01/21/19 1515:00 23:00 07:00 IntakeIntake Total 770 ml 250 ml OutputOutput Total 1100 ml BalanceBalance 770 ml -850 ml Results Results 24hrs Laboratory Tests Test 01/20/19 18:23 01/21/19 00:59 01/21/19 04:50 Creatine Kinase 50 45 44 Creatine Kinase Index 3.2 3.1 3.5 Creatinine Kinase MB (Mass) 1.59 1.41 1.53 Troponin I 0.053 0.060 0.072 White Blood Count 10.7 # Red Blood Count 3.85 L Hemoglobin 11.2 L Hematocrit 34.4 L Mean Corpuscular Volume 89.4 Mean Corpuscular Hemoglobin 29.1 Mean Corpuscular Hemoglobin Concent 32.6 Red Cell Distribution Width 14.0 Platelet Count 262 Mean Platelet Volume 10.5 H Immature Granulocytes % 0.400 Neutrophils % 89.5 H Lymphocytes % 7.0 L Monocytes % 3.0 Eosinophils % 0.0 Basophils % 0.1 Nucleated Red Blood Cells % 0.0 Immature Granulocytes # 0.040 H Neutrophils # 9.6 H Lymphocytes # 0.8 Monocytes # 0.3 Eosinophils # 0.0 Basophils # 0.0 Nucleated Red Blood Cells # 0.0 Sodium Level 141 Potassium Level 4.7 Chloride Level 108 Carbon Dioxide Level 24 Anion Gap 9 Blood Urea Nitrogen 49 #H Creatinine 2.14 H Est Glomerular Filtrat Rate mL/min Glucose Level 129 Calcium Level 8.7 Phosphorus Level 3.8 Magnesium Level 1.6 L Total Bilirubin 0.2 Direct Bilirubin 0.00 Indirect Bilirubin 0.2 Aspartate Amino Transf (AST/SGOT) 19 Alanine Aminotransferase (ALT/SGPT) 18 Alkaline Phosphatase 90 B-Type Natriuretic Peptide 9650 H Total Protein 7.0 Albumin 3.5 Globulin 3.50 H Albumin/Globulin Ratio 1.00 Triglycerides Level 90 Cholesterol Level 179 LDL Cholesterol, Calculated 110 HDL Cholesterol 51 Cholesterol/HDL Ratio 3.5 Medications Medication Current Medications IV Flush (NS 3 ml) 3 ml PER PROTOCOL IV ; Start 01/20/19 at 11:00 Ondansetron HCl (Zofran Inj) 4 mg Q6H PRN IV NAUSEA/VOMITING; Start 01/20/19 at 11:00 Acetaminophen (Tylenol Tab) 650 mg Q6H PRN PO .PAIN 1-3 OR TEMP; Start 01/20/19 at 11:00 Amlodipine Besylate (Norvasc) 10 mg DAILY PO Last administered on 01/21/19 09:38; Admin Dose 10 MG; Start 01/21/19 at 09:00 Aspirin (Halfprin) 81 mg DAILY PO Last administered on 01/21/19 09:37; Admin Dose 81 MG; Start 01/21/19 at 09:00 Cyclosporine (Restasis) 1 drop Q12 BOTH EYES Last administered on 01/21/19 09:37; Admin Dose 1 DROP; Start 01/20/19 at 21:00 Donepezil HCl (Aricept) 5 mg DAILY PO Last administered on 01/21/19 09:38; Admin Dose 5 MG; Start 01/21/19 at 09:00 Metoprolol Succinate (Toprol Xl) 50 mg DAILY PO Last administered on 01/21/19 09:38; Admin Dose 50 MG; Start 01/21/19 at 09:00 Pentoxifylline (Trental) 400 mg WITH MEALS PO Last administered on 01/21/19 12:14; Admin Dose 400 MG; Start 01/20/19 at 18:00 Ranolazine (Ranexa) 500 mg Q12 PO Last administered on 01/21/19 09:37; Admin Dose 500 MG; Start 01/20/19 at 21:00 Tamsulosin HCl (Flomax) 0.4 mg DAILY PO Last administered on 01/21/19 09:38; Admin Dose 0.4 MG; Start 01/21/19 at 09:00 Albuterol/ Ipratropium (Duoneb) 3 ml Q6HWA RESP THERAPY HHN Last administered on 01/21/19 13:06; Admin Dose 3 ML; Start 01/20/19 at 14:00 Albuterol/ Ipratropium (Duoneb) 3 ml Q2H RESP THERAPY PRN HHN SHORTNESS OF BREATH; Start 01/20/19 at 13:00 Arformoterol Tartrate (Brovana (Neb)) 2 ml BID NEB Last administered on 01/21/19 08:09; Admin Dose 2 ML; Start 5/27/19 at 21:00 Hydralazine HCl (Apresoline) 10 mg Q6H PRN IV SBP>160; Start 01/20/19 at 12:30 Ceftriaxone Sodium 50 ml @ 100 mls/hr Q24H IVPB Last administered on 01/21/19at 12:14; Admin Dose 100 MLS/HR; Start 01/20/19 at 13:00 Azithromycin 250 ml @ 250 mls/hr Q24H IVPB Last administered on 01/21/19at 13:45; Admin Dose 250 MLS/HR; Start 01/20/19 at 13:00 Furosemide (Lasix) 40 mg DAILY IV Last administered on 01/21/19at 09:37; Admin Dose 40 MG; Start 01/21/19 at 09:00 PARAS MCDONALD NP January 21, 2019 14:09
[2019-01-21] MEDS ORDERED: METHYLPREDNISOLONE 125 MG INJ IV ONE (23:30)
--- NOTE | 2019-01-21 23:30 | EN ---
Date/Time of Note Date/Time of Note DATE: 01/21/19 TIME: 23:25 Event Note Medicine Medicine Event Note Acute event note called to room by RN as patient reports SOB Patient seen and examined at the bedside. Patient received breathing treatment, however despite this patient remains sob. He is sitting hunched forward in bed. Denies chest pain. 88% on 6L. Tachycardic. Vitals: HR. 104 RR: 25, Spo2: 88% on 6L NS general: sitting in bed in respiratory distress cvs: sinus tachy lungs: decreased air movement bilaterally, questionable rales neuro: alert and oriented x 3 Stat chest xray: Appears to show some signs of vascular congestion 1. Acute respiratory distress: likely copd exacerbation with superimposd chf exac. Stat Solumedrol. Nebs. Stat ABG/cxr. Transfer to tele. Lasix 40 mg IV x1.. Transfer to tele. Will consider BiPAP. Greater than 30 mins of critical care time was spent on the care and management of this patient. HERRERA QUINN January 21, 2019 23:30
[2019-01-21] MEDS: LEVALBUTEROL (NEB) 1.25 MG/0.5 ML AMP HHN SCH (23:55)
[2019-01-22] VITALS (17 sets, daily range): BP systolic 123–162; BP diastolic 76–104; PULSE 62–114; RESP 18–20
[2019-01-22] MEDS: IPRATROPIUM (NEB) 0.5 MG/2.5 ML AMP HHN SCH ×6 (00:56→20:41)
[2019-01-22] MEDS: LEVALBUTEROL (NEB) 1.25 MG/0.5 ML AMP HHN SCH ×6 (00:56→20:41)
[2019-01-22] MEDS ORDERED: LORAZEPAM 2 MG INJ IV ONE (01:00)
[2019-01-22] MEDS ORDERED: FUROSEMIDE 40 MG INJ IV ONE (04:00)
[2019-01-22] MEDS: PANTOPRAZOLE (EC) 40 MG TAB PO SCH (05:39)
[2019-01-22] MEDS ORDERED: METHYLPREDNISOLONE 40 MG INJ IV SCH (06:00)
[2019-01-22] MEDS: ARFORMOTEROL TARTRATE 15MCG/2 ML AMP NEB SCH ×2 (08:35→20:48)
[2019-01-22] MEDS: DONEPEZIL 5 MG TAB PO SCH (08:41)
[2019-01-22] MEDS: ASPIRIN (EC) 81 MG TAB PO SCH (08:41)
[2019-01-22] MEDS: RANOLAZINE (SR) 500 MG TAB PO SCH ×2 (08:41→21:10)
[2019-01-22] MEDS: CYCLOSPORINE 0.05% OPH DROPERETTE BOTH EYES SCH ×2 (08:41→21:11)
[2019-01-22] MEDS: TAMSULOSIN (SR) 0.4 MG CAP PO SCH (08:42)
[2019-01-22] MEDS: PENTOXIFYLLINE (SR) 400 MG TAB PO SCH ×3 (08:42→17:19)
[2019-01-22] MEDS: METOPROLOL (XL) 50 MG TAB PO SCH (08:44)
[2019-01-22] MEDS: AMLODIPINE 10 MG TAB PO SCH (08:44)
[2019-01-22] MEDS: FUROSEMIDE 40 MG INJ IV SCH (08:49)
--- NOTE | 2019-01-22 09:02 | RADRPT ---
Vent Rate: 98 bpm RR Interval: 608 msec MI Interval: 167 msec QRS Duration: 110 msec QT Interval: 393 msec QTC Interval: 504 msec P-R-T [place]: 80 - -23 - 212 degrees Sinus rhythm... LVH with secondary repolarization abnormality. Prolonged QT interval...QTc >500mS ABNORMAL ECG Electronically Signed By: Benedict Olivas
--- NOTE | 2019-01-22 09:48 | CONS ---
Assessment/Plan Assessment/Plan Assessment/Plan (Daily) Assessment and recommendations; 1. Patient admitted with shortness of breath due to CHF exacerbation with cardiomegaly as well as pulmonary edema on chest x-ray with interval improvement in symptoms. 2. Mild hypercapnia on admission with improvement on BiPAP. 3. History of hypertension, BPH, and chronic renal insufficiency. 4. Mild elevation in baseline serum creatinine. Likely diuretic induced. 5. Possibly underlying COPD however current clinical presentation is more in line with CHF exacerbation rather than COPD exacerbation. Discontinue Solu-Medrol. Decrease Lasix dosing as well. Continue BiPAP as needed. Consultation Date/Type/Reason Admit Date/Time January 20, 2019 at 09:01 Date of Consultation: January 22, 2019 Type of Consult Pulmonary Patient is a 83-year-old male who was admitted on the of this month with a few days history of shortness of breath associated with cough. Patient denies any fever, chills, any sputum production or hemoptysis. Upon admission patient was diagnosed with CHF exacerbation and has been started on BiPAP as well as Lasix with significant improvement in symptoms. Past medical history; 1. Underlying cardia myopathy. 2. Likely chronic baseline renal insufficiency. 3. Peripheral vascular disease. 4. Possible underlying COPD as well. 5. BPH. 6. Systemic hypertension. Medications; reviewed. Allergies; none. Social history; patient has recently quit smoking. No stable alcohol or drug abuse. Family history; he is single. 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 Review of systems; denies any headache, sinus symptoms, seizures. Any chest pain, angina, wheezing. Shortness of breath is markedly improved. Denies any sputum production or hemoptysis. Denies any fever or chills. Any abdominal pain, nausea vomiting. Does complain of chronic urinary urgency and hesitation. Denies any melena hematochezia. Denies any weight loss. Denies any orthopnea. Denies any edema. General exam; elderly male, awake alert, currently in no distress. Date/Time of Note DATE: 01/22/19 TIME: 09:44 Past Medical History Home Meds Reported Medications Naproxen* (Naproxen*) 500 Mg Tablet, 500 MG PO BID PRN for PAIN, TAB 01/20/19 Diclofenac Sodium* (Voltaren* Gel) 1% -100 Gm Gel, 2 GM TOP QID, #1 TUB 01/20/19 Budesonide-Formoterol Fumarate* (Symbicort*) 160-4.5 Hfa.aer.ad, 2 PUFF INHALATION BID, #1 EACH 01/20/19 Cyclosporine (RESTASIS) 1 Each Droperette, 1 DROP BOTH EYES Q12, #1 BOX 01/20/19 Ranolazine* (Ranexa*) 500 Mg Tab.sr.12h, 500 MG PO Q12, TAB 01/20/19 Tamsulosin Hcl* (Flomax*) 0.4 Mg Cap.er.24h, 0.4 MG PO DAILY, CAP 01/20/19 Linaclotide (LINZESS) 145 Mcg Capsule, 145 MCG PO DAILY, #30 CAP 01/20/19 Nebivolol Hcl* (Bystolic*) 10 Mg Tablet, 10 MG PO DAILY, #30 TAB 01/20/19 Losartan Potassium* (Losartan Potassium*) 100 Mg Tablet, 100 MG PO DAILY, TAB 01/20/19 Omeprazole* (Omeprazole*) 20 Mg Capsule.dr, 20 MG PO DAILY, #30 CAP 01/20/19 Donepezil* (Aricept*) 5 Mg Tablet, 5 MG PO DAILY, TAB 01/20/19 Meloxicam* (Meloxicam*) 7.5 Mg Tablet, 7.5 MG PO DAILY, #30 TAB 01/20/19 Aspirin (Low Dose Aspirin) 81 Mg Tablet.dr, 81 MG PO DAILY, #30 TAB 01/20/19 Amlodipine Besylate* (Amlodipine Besylate*) 10 Mg Tablet, 10 MG PO DAILY, #30 TAB 01/20/19 Metoprolol Succinate* (Toprol XL*) 50 Mg Tab.er.24h, 50 MG PO DAILY, #30 TAB 01/20/19 Pentoxifylline* (Pentoxifylline*) 400 Mg Tablet.sa, 400 MG PO WITH MEALS, TAB 01/20/19 Discontinued Reported Medications Omeprazole* (Omeprazole*) 20 Mg Capsule.dr, 20 MG PO DAILY, #30 CAP 01/30/17 Meloxicam* (Meloxicam*) 7.5 Mg Tablet, 7.5 MG PO DAILY, #30 TAB 01/30/17 Metoprolol Succinate* (Toprol XL*) 50 Mg Tab.er.24h, 50 MG PO DAILY, #30 TAB 01/30/17 Pentoxifylline* (Pentoxifylline*) 400 Mg Tablet.sa, 400 MG PO TID, TAB 01/30/17 Olmesartan-Hydrochlorothiazide (Benicar HCT) 20-12.5 Mg Tablet, 2 TAB PO DAILY, #30 TAB 01/30/17 Discontinued Scripts Acetaminophen* (Tylophen*) 500 Mg Capsule, 1 CAP PO Q6H PRN for PAIN AND OR ELEVATED TEMP, #30 CAP Prov:MARIBEL DUVALL-C 03/08/18 Tramadol HCl (Tramadol HCl) 50 Mg Tablet, 50 MG PO Q6 PRN for PAIN, #20 TAB Prov:MARIBEL DUVALLC 03/08/18 Meloxicam* (Meloxicam*) 7.5 Mg Tablet, 7.5 MG PO DAILY, #30 TAB Prov:CAPRICE LIVINGSTON-C 02/03/18 Medications Current Medications IV Flush (NS 3 ml) 3 ml PER PROTOCOL IV ; Start 01/20/19 at 11:00 Ondansetron HCl (Zofran Inj) 4 mg Q6H PRN IV NAUSEA/VOMITING; Start 01/20/19 at 11:00 Acetaminophen (Tylenol Tab) 650 mg Q6H PRN PO .PAIN 1-3 OR TEMP; Start 01/20/19 at 11:00 Amlodipine Besylate (Norvasc) 10 mg DAILY PO Last administered on 01/22/19at 08:44; Admin Dose 10 MG; Start 01/21/19 at 09:00 Aspirin (Halfprin) 81 mg DAILY PO Last administered on 01/22/19at 08:41; Admin Dose 81 MG; Start 01/21/19 at 09:00 Cyclosporine (Restasis) 1 drop Q12 BOTH EYES Last administered on 01/22/19 08:41; Admin Dose 1 DROP; Start 01/20/19 at 21:00 Donepezil HCl (Aricept) 5 mg DAILY PO Last administered on 01/22/19at 08:41; Admin Dose 5 MG; Start 01/21/19 at 09:00 Metoprolol Succinate (Toprol Xl) 50 mg DAILY PO Last administered on 01/22/19at 08:44; Admin Dose 50 MG; Start 01/21/19 at 09:00 Pentoxifylline (Trental) 400 mg WITH MEALS PO Last administered on 01/22/19 08:42; Admin Dose 400 MG; Start 01/20/19 at 18:00 Ranolazine (Ranexa) 500 mg Q12 PO Last administered on 01/22/19 08:41; Admin Dose 500 MG; Start 01/20/19 at 21:00 Tamsulosin HCl (Flomax) 0.4 mg DAILY PO Last administered on 01/22/19 08:42; Admin Dose 0.4 MG; Start 01/21/19 at 09:00 Albuterol/ Ipratropium (Duoneb) 3 ml Q2H RESP THERAPY PRN HHN SHORTNESS OF BREATH Last administered on 01/21/19 22:56; Admin Dose 3 ML; Start 01/20/19 at 13:00 Arformoterol Tartrate (Brovana (Neb)) 2 ml BID NEB Last administered on 01/22/19 08:35; Admin Dose 2 ML; Start 01/20/19 at 21:00 Hydralazine HCl (Apresoline) 10 mg Q6H PRN IV SBP>160; Start 01/20/19 at 12:30 Furosemide (Lasix) 40 mg DAILY IV Last administered on 01/22/19 08:49; Admin Dose 40 MG; Start 01/21/19 at 09:00 Methylprednisolone Sodium Succinate (Solu-Medrol) 30 mg Q8 IV Last administered on 01/22/19 05:39; Admin Dose 30 MG; Start 01/22/19 at 06:00 Pantoprazole (Protonix Tab) 40 mg DAILY@06 PO Last administered on 01/22/19 05:39; Admin Dose 40 MG; Start 01/22/19 at 06:00 Levalbuterol (Xopenex Neb) 1.25 mg Q4H RESP THERAPY HHN Last administered on 01/22/19 08:32; Admin Dose 1.25 MG; Start 01/21/19 at 23:30 Ipratropium [place] (Atrovent 0.02% (Neb)) 0.5 mg Q4H RESP THERAPY HHN Last administered on 01/22/19 08:32; Admin Dose 0.5 MG; Start 01/22/19 at 01:00 Allergies: Coded Allergies: No Known Drug Allergies (Verified Allergy, Mild, 01/20/19) Social History Alcohol Use: none Smoking Status: Former smoker Drug Use: none Exam/Review of Systems Exam Vitals Vital Signs Date Temp Pulse Resp B/P (MAP) Pulse Ox O2 O2 Flow FiO2 Time Delivery Rate 01/22/19 98.3 92 20 135/76 94 08:47 (95) 01/22/19 Nasal 6.0 08:24 Cannula 01/22/19 60 04:56 Intake and Output 01/21/19 01/21/19 01/22/19 1515:00 23:00 07:00 IntakeIntake Total 300 ml 740 ml 100 ml OutputOutput Total 1150 ml 180 ml BalanceBalance 300 ml -410 ml -80 ml Exam H EENT exam; supple neck, positive JVD. No lymphadenopathy. Midline trachea. No thyromegaly. Patient is edentulous. No neck masses. Chest exam; diminished but clear breath sounds. S1-S2 audible, no murmurs. Regular rhythm. Abdomen exam; soft, nontender. No organomegaly. Bowel sounds audible. Extremity exam; no peripheral edema or clubbing. [employer] exam; no focal deficit. Results Result Diagram: 01/22/19 0453 01/22/19 0453 Results 24hrs Laboratory Tests Test 01/21/19 15:06 01/21/19 23:09 01/22/19 02:00 01/22/19 04:53 Bedside Glucose 175 Blood Gas Blood arterial Blood arterial Specimen Source Arterial Blood 01/21/2019 11:48 01/22/2019 2:10: Date Drawn :00 PM 47 AM Arterial Blood 7.280 *L 7.359 pH (Temp corrected) Arterial Blood 50.2 H 41.8 pCO2 (Temp correct) Arterial Blood 58.5 L 135.1 H pO2 (Temp corrected) Arterial Blood 23.1 23.0 HCO3 Arterial Blood -4.1 L -2.3 Base Excess Arterial Blood 85.6 L 98.5 Oxygen Saturatio n Richard Test N/A N/A Arterial Blood LB LB Gas Puncture Site Arterial 0.1 0.3 Blood Carboxyhem oglobin Arterial Blood 0.2 0.4 Methemoglobin Blood Gas A-a O2 161.7 H 536.1 H Differential Oxyhemoglobin 85.3 L 97.8 Percent Blood Gas 37.0 37.0 Temperature Blood Gas NASAL CANNULA MASK - BIPAP Modality FiO2 39.0 100.0 Blood Gas Jenni HUNT RN Critical Value Read Back Blood Gas RR D [facility] Notified Whom Blood Gas 01/22/2019 12:00 01/22/2019 2:20: Notified Time :00 AM 39 AM Blood Gas 24.0 Respiration Rate Blood Gas Actual 27 Respiration Rate Blood Gas 20/5 IPAP/EPAP Ratio White Blood 13.7 #H Count Red Blood Count 4.63 #L Hemoglobin 13.4 L Hematocrit 41.6 #L Mean Corpuscular 89.8 Volume Mean Corpuscular 28.9 L Hemoglobin Mean Corpuscular 32.2 Hemoglobin Tiffani nt Red Cell 14.3 Distribution Width Platelet Count 317 # Mean Platelet 10.6 H Volume Immature 0.400 Granulocytes % Neutrophils % 95.3 H Lymphocytes % 3.4 L Monocytes % 0.8 Eosinophils % 0.0 Basophils % 0.1 Nucleated Red 0.0 Blood Cells % Immature 0.060 H Granulocytes # Neutrophils # 13.1 H Lymphocytes # 0.5 L Monocytes # 0.1 L Eosinophils # 0.0 Basophils # 0.0 Nucleated Red 0.0 Blood Cells # Sodium Level 141 Potassium Level 4.9 Chloride Level 106 Carbon Dioxide 23 Level Anion Gap 12 Blood Urea 67 H Nitrogen Creatinine 2.66 H Est Glomerular Filtrat Rate mL/min Glucose Level 153 Calcium Level 8.6 Phosphorus Level 5.5 H Magnesium Level 1.8 Medications Medication Current Medications IV Flush (NS 3 ml) 3 ml PER PROTOCOL IV ; Start 01/20/19 at 11:00 Ondansetron HCl (Zofran Inj) 4 mg Q6H PRN IV NAUSEA/VOMITING; Start 01/20/19 at 11:00 Acetaminophen (Tylenol Tab) 650 mg Q6H PRN PO .PAIN 1-3 OR TEMP; Start 01/20/19 at 11:00 Amlodipine Besylate (Norvasc) 10 mg DAILY PO Last administered on 01/22/19at 08:44; Admin Dose 10 MG; Start 01/21/19 at 09:00 Aspirin (Halfprin) 81 mg DAILY PO Last administered on 01/22/19at 08:41; Admin Dose 81 MG; Start 01/21/19 at 09:00 Cyclosporine (Restasis) 1 drop Q12 BOTH EYES Last administered on 01/22/19 0 8:41; Admin Dose 1 DROP; Start 01/20/19 at 21:00 Donepezil HCl (Aricept) 5 mg DAILY PO Last administered on 01/22/19 08:41; Admin Dose 5 MG; Start 01/21/19 at 09:00 Metoprolol Succinate (Toprol Xl) 50 mg DAILY PO Last administered on 01/22/19 08:44; Admin Dose 50 MG; Start 01/21/19 at 09:00 Pentoxifylline (Trental) 400 mg WITH MEALS PO Last administered on 01/22/19 08:42; Admin Dose 400 MG; Start 01/20/19 at 18:00 Ranolazine (Ranexa) 500 mg Q12 PO Last administered on 01/22/19 08:41; Admin Dose 500 MG; Start 01/20/19 at 21:00 Tamsulosin HCl (Flomax) 0.4 mg DAILY PO Last administered on 01/22/19 08:42; Admin Dose 0.4 MG; Start 01/21/19 at 09:00 Albuterol/ Ipratropium (Duoneb) 3 ml Q2H RESP THERAPY PRN HHN SHORTNESS OF BREATH Last administered on 01/21/19 22:56; Admin Dose 3 ML; Start 01/20/19 at 13:00 Arformoterol Tartrate (Brovana (Neb)) 2 ml BID NEB Last administered on 08:35; Admin Dose 2 ML; Start 01/20/19 at 21:00 Hydralazine HCl (Apresoline) 10 mg Q6H PRN IV SBP>160; Start 01/20/19 at 12:30 Furosemide (Lasix) 40 mg DAILY IV Last administered on 01/22/19 08:49; Admin Dose 40 MG; Start 01/21/19 at 09:00 Methylprednisolone Sodium Succinate (Solu-Medrol) 30 mg Q8 IV Last administered on 01/22/19 05:39; Admin Dose 30 MG; Start 01/22/19 at 06:00 Pantoprazole (Protonix Tab) 40 mg DAILY@06 PO Last administered on 01/22/19 05:39; Admin Dose 40 MG; Start 01/22/19 at 06:00 Levalbuterol (Xopenex Neb) 1.25 mg Q4H RESP THERAPY HHN Last administered on 01/22/19 08:32; Admin Dose 1.25 MG; Start 01/21/19 at 23:30 Ipratropium [place] (Atrovent 0.02% (Neb)) 0.5 mg Q4H RESP THERAPY HHN Last administered on 01/22/19at 08:32; Admin Dose 0.5 MG; Start 01/22/19 at 01:00 ANGELLA MOORE January 22, 2019 09:48
--- NOTE | 2019-01-22 12:27 | PN ---
Date/Time of Note Date/Time of Note DATE: 01/22/19 TIME: 12:25 Assessment/Plan VTE Prophylaxis Risk score (from Ns)>0 risk: 6 SCD applied (from Ns): Yes Pharmacological prophylaxis: heparin Lines/Catheters IV Catheter Type [facility]from [facility] [place] Urinary Cath still in place: No Assessment/Plan Hospital Course SUBJECTIVE: The patient had a rapid response last night because of respiratory distress. Therefore, the patient was transferred to telemetry floor. Patient has been on noninvasive positive pressure ventilation for a while and currently on oxygen via nasal cannula. OBJECTIVE: Physical Exam General: Adequately build 83 year-old male lying in bed in no apparent distress. HEENT: Normocephalic, atraumatic. Eyes: Anicteric sclerae, conjunctivae clear. ENT: Nasal septum midline, oral mucosa moist. Neck supple. Respiratory: Bilaterally diminished breath sounds. Use of accessory muscles of respiration. B/L rales. Cardiovascular: S1, S2 heard. Regular rate and rhythm. Abdomen: Soft, nontender, and nondistended. Bowel sounds positive in all 4 quadr ants. Genitourinary: Deferred. Extremities: No cyanosis, no clubbing, no edema. Left lower extremity Cam boot on. Neurologic: Cranial nerves II through XII grossly intact. The patient is awake, alert, and oriented. Skin: Normal skin turgor. No skin rashes. Labs & Vitals per chart ASSESSMENT & PLAN 83-year-old male with comorbidities including hypertension, CKD, peripheral artery disease, and COPD who came to the emergency room with chief complaint of dyspnea with evidence of underlying hypoxia and pulmonary infiltrates, who was admitted to inpatient setting for further treatment and evaluation. 1. Acute respiratory failure. -Hypoxic -Etiology unclear. May be multifactorial in origin including underlying bilateral pleural effusions. -Continue supplemental oxygen. -Continue inhaled bronchodilators. -Continue diuresis. -Pulmonology following. 2. Bilateral pleural effusions. -Continue diuresis while carefully monitoring renal function. 3. CHF exacerbation, acute on chronic systolic dysfunction. -Continue diuretic therapy while carefully monitoring renal function. -Cardiology following. 4. Peripheral artery disease. -Continue aspirin and pentoxifylline. 5. Hypertension. -Continue antihypertensives. -Hold ARBs because of worsening renal function. 6. Acute on chronic kidney disease. -Hold nephrotoxic medications. -Monitor BUN and creatinine closely. -Nephrology consult will be obtained. 7. COPD. -Continue the patient on inhaled bronchodilators; JESUS and LABA. -Status post IV steroids. 8. Fluids, electrolytes, and nutrition. -Low-cholesterol diet. 9. DVT prophylaxis. -Subcutaneous heparin. 10. Plan. -Continue diuresis while clinically monitoring renal function. -Await clinical improvement before discharging the patient home. The patient was seen in collaboration with Dr. Campuzano. Result Diagram: 01/22/19 0453 01/22/19 0453 Results 24hrs Laboratory Tests Test 01/21/19 15:06 01/21/19 23:09 01/22/19 02:00 01/22/19 04:53 Bedside Glucose 175 Blood Gas Blood arterial Blood arterial Specimen Source Arterial Blood 01/21/2019 11:48 01/22/2019 2:10: Date Drawn :00 PM 47 AM Arterial Blood 7.280 *L 7.359 pH (Temp corrected) Arterial Blood 50.2 H 41.8 pCO2 (Temp correct) Arterial Blood 58.5 L 135.1 H pO2 (Temp corrected) Arterial Blood 23.1 23.0 HCO3 Arterial Blood -4.1 L -2.3 Base Excess Arterial Blood 85.6 L 98.5 Oxygen Saturatio n Richard Test N/A N/A Arterial Blood LB LB Gas Puncture Site Arterial 0.1 0.3 Blood Carboxyhem oglobin Arterial Blood 0.2 0.4 Methemoglobin Blood Gas A-a O2 161.7 H 536.1 H Differential Oxyhemoglobin 85.3 L 97.8 Percent Blood Gas 37.0 37.0 Temperature Blood Gas NASAL CANNULA MASK - BIPAP Modality FiO2 39.0 100.0 Blood Gas Jenni HUNT RN Critical Value Read Back Blood Gas RR Alhaji GTZ [employer] Notified Whom Blood Gas 01/22/2019 12:00 01/22/2019 2:20: Notified Time :00 AM 39 AM Blood Gas 24.0 Respiration Rate Blood Gas Actual 27 Respiration Rate Blood Gas 20/5 IPAP/EPAP Ratio White Blood 13.7 #H Count Red Blood Count 4.63 #L Hemoglobin 13.4 L Hematocrit 41.6 #L Mean Corpuscular 89.8 Volume Mean Corpuscular 28.9 L Hemoglobin Mean Corpuscular 32.2 Hemoglobin Tiffani nt Red Cell 14.3 Distribution Width Platelet Count 317 # Mean Platelet 10.6 H Volume Immature 0.400 Granulocytes % Neutrophils % 95.3 H Lymphocytes % 3.4 L Monocytes % 0.8 Eosinophils % 0.0 Basophils % 0.1 Nucleated Red 0.0 Blood Cells % Immature 0.060 H Granulocytes # Neutrophils # 13.1 H Lymphocytes # 0.5 L Monocytes # 0.1 L Eosinophils # 0.0 Basophils # 0.0 Nucleated Red 0.0 Blood Cells # Sodium Level 141 Potassium Level 4.9 Chloride Level 106 Carbon Dioxide 23 Level Anion Gap 12 Blood Urea 67 H Nitrogen Creatinine 2.66 H Est Glomerular Filtrat Rate mL/min Glucose Level 153 Calcium Level 8.6 Phosphorus Level 5.5 H Magnesium Level 1.8 Test 01/22/19 08:05 01/22/19 09:30 Urine Color YELLOW Urine Clarity CLEAR Urine pH 5.0 Urine Specific 1.010 [place] Urine Ketones NEGATIVE Urine Nitrite NEGATIVE Urine Bilirubin NEGATIVE Urine NEGATIVE Urobilinogen Urine Leukocyte NEGATIVE Esterase Urine Hemoglobin NEGATIVE Urine Glucose NEGATIVE Urine Total NEGATIVE Protein Blood Gas Blood arterial Specimen Source Arterial Blood 01/22/2019 9:28: Date Drawn 30 AM Arterial Blood 7.395 pH (Temp corrected) Arterial Blood 39.5 pCO2 (Temp correct) Arterial Blood 54.2 *L pO2 (Temp corrected) Arterial Blood 23.6 HCO3 Arterial Blood -1.0 Base Excess Arterial Blood 87.6 L Oxygen Saturatio n Richard Test ACCEPTAB Arterial Blood Right Radial Gas Puncture Site Arterial 0.3 Blood Carboxyhem oglobin Arterial Blood 0.4 Methemoglobin Blood Gas A-a O2 178.3 H Differential Oxyhemoglobin 87.0 L Percent Blood Gas 37.0 Temperature Blood Gas NASAL CANNULA Modality FiO2 39.0 Blood Gas LFAREED ECHOLS Critical Value Read Back Blood Gas TM Notified Whom Blood Gas 01/22/2019 9:43: Notified Time 13 AM Exam/Review of Systems Exam Vitals Vital Signs Date Temp Pulse Resp B/P (MAP) Pulse Ox O2 O2 Flow FiO2 Time Delivery Rate 01/22/19 90 12:03 01/22/19 98.0 20 135/80 94 11:53 (98) 01/22/19 12.0 40 10:33 01/22/19 Nasal 08:24 Cannula Intake and Output 01/21/19 01/21/19 01/22/19 1515:00 23:00 07:00 IntakeIntake Total 300 ml 740 ml 100 ml OutputOutput Total 1150 ml 180 ml BalanceBalance 300 ml -410 ml -80 ml Results Results 24hrs Laboratory Tests Test 01/21/19 15:06 01/21/19 23:09 01/22/19 02:00 01/22/19 04:53 Bedside Glucose 175 Blood Gas Blood arterial Blood arterial Specimen Source Arterial Blood 01/21/2019 11:48 01/22/2019 2:10: Date Drawn :00 PM 47 AM Arterial Blood 7.280 *L 7.359 pH (Temp corrected) Arterial Blood 50.2 H 41.8 pCO2 (Temp correct) Arterial Blood 58.5 L 135.1 H pO2 (Temp corrected) Arterial Blood 23.1 23.0 HCO3 Arterial Blood -4.1 L -2.3 Base Excess Arterial Blood 85.6 L 98.5 Oxygen Saturatio n Richard Test N/A N/A Arterial Blood LB LB Gas Puncture Site Arterial 0.1 0.3 Blood Carboxyhem oglobin Arterial Blood 0.2 0.4 Methemoglobin Blood Gas A-a O2 161.7 H 536.1 H Differential Oxyhemoglobin 85.3 L 97.8 Percent Blood Gas 37.0 37.0 Temperature Blood Gas NASAL CANNULA MASK - BIPAP Modality FiO2 39.0 100.0 Blood Gas Jenni HUNT RN Critical Value Read Back Blood Gas RR Alhaji GTZ [facility] Notified Whom Blood Gas 01/22/2019 12:00 01/22/2019 2:20: Notified Time :00 AM 39 AM Blood Gas 24.0 Respiration Rate Blood Gas Actual 27 Respiration Rate Blood Gas 20/5 IPAP/EPAP Ratio White Blood 13.7 #H Count Red Blood Count 4.63 #L Hemoglobin 13.4 L Hematocrit 41.6 #L Mean Corpuscular 89.8 Volume Mean Corpuscular 28.9 L Hemoglobin Mean Corpuscular 32.2 Hemoglobin Tiffani nt Red Cell 14.3 Distribution Width Platelet Count 317 # Mean Platelet 10.6 H Volume Immature 0.400 Granulocytes % Neutrophils % 95.3 H Lymphocytes % 3.4 L Monocytes % 0.8 Eosinophils % 0.0 Basophils % 0.1 Nucleated Red 0.0 Blood Cells % Immature 0.060 H Granulocytes # Neutrophils # 13.1 H Lymphocytes # 0.5 L Monocytes # 0.1 L Eosinophils # 0.0 Basophils # 0.0 Nucleated Red 0.0 Blood Cells # Sodium Level 141 Potassium Level 4.9 Chloride Level 106 Carbon Dioxide 23 Level Anion Gap 12 Blood Urea 67 H Nitrogen Creatinine 2.66 H Est Glomerular Filtrat Rate mL/min Glucose Level 153 Calcium Level 8.6 Phosphorus Level 5.5 H Magnesium Level 1.8 Test 01/22/19 08:05 01/22/19 09:30 Urine Color YELLOW Urine Clarity CLEAR Urine pH 5.0 Urine Specific 1.010 [place] Urine Ketones NEGATIVE Urine Nitrite NEGATIVE Urine Bilirubin NEGATIVE Urine NEGATIVE Urobilinogen Urine Leukocyte NEGATIVE Esterase Urine Hemoglobin NEGATIVE Urine Glucose NEGATIVE Urine Total NEGATIVE Protein Blood Gas Blood arterial Specimen Source Arterial Blood 01/22/2019 9:28: Date Drawn 30 AM Arterial Blood 7.395 pH (Temp corrected) Arterial Blood 39.5 pCO2 (Temp correct) Arterial Blood 54.2 *L pO2 (Temp corrected) Arterial Blood 23.6 HCO3 Arterial Blood -1.0 Base Excess Arterial Blood 87.6 L Oxygen Saturatio n Richard Test ACCEPTAB Arterial Blood Right Radial Gas Puncture Site Arterial 0.3 Blood Carboxyhem oglobin Arterial Blood 0.4 Methemoglobin Blood Gas A-a O2 178.3 H Differential Oxyhemoglobin 87.0 L Percent Blood Gas 37.0 Temperature Blood Gas NASAL CANNULA Modality FiO2 39.0 Blood Gas L.SAGAR ECHOLS Critical Value Read Back Blood Gas TM Notified Whom Blood Gas 01/22/2019 9:43: Notified Time 13 AM Medications Medication Current Medications IV Flush (NS 3 ml) 3 ml PER PROTOCOL IV ; Start 01/20/19 at 11:00 Ondansetron HCl (Zofran Inj) 4 mg Q6H PRN IV NAUSEA/VOMITING; Start 01/20/19 at 11:00 Acetaminophen (Tylenol Tab) 650 mg Q6H PRN PO .PAIN 1-3 OR TEMP; Start 01/20/19 at 11:00 Amlodipine Besylate (Norvasc) 10 mg DAILY PO Last administered on 01/22/19at 08:44; Admin Dose 10 MG; Start 01/21/19 at 09:00 Aspirin (Halfprin) 81 mg DAILY PO Last administered on 01/22/19at 08:41; Admin Dose 81 MG; Start 01/21/19 at 09:00 Cyclosporine (Restasis) 1 drop Q12 BOTH EYES Last administered on 01/22/19 08:41; Admin Dose 1 DROP; Start 01/20/19 at 21:00 Donepezil HCl (Aricept) 5 mg DAILY PO Last administered on 01/22/19 08:41; Admin Dose 5 MG; Start 01/21/19 at 09:00 Metoprolol Succinate (Toprol Xl) 50 mg DAILY PO Last administered on 01/22/19 08:44; Admin Dose 50 MG; Start 01/21/19 at 09:00 Pentoxifylline (Trental) 400 mg WITH MEALS PO Last administered on 01/22/19 12:01; Admin Dose 400 MG; Start 01/20/19 at 18:00 Ranolazine (Ranexa) 500 mg Q12 PO Last administered on 01/22/19 08:41; Admin Dose 500 MG; Start 01/20/19 at 21:00 Tamsulosin HCl (Flomax) 0.4 mg DAILY PO Last administered on 01/22/19 08:42; Admin Dose 0.4 MG; Start 01/21/19 at 09:00 Albuterol/ Ipratropium (Duoneb) 3 ml Q2H RESP THERAPY PRN HHN SHORTNESS OF BREATH Last administered on 01/21/19 22:56; Admin Dose 3 ML; Start 01/20/19 at 13:00 Arformoterol Tartrate (Brovana (Neb)) 2 ml BID NEB Last administered on 01/22/19 08:35; Admin Dose 2 ML; Start 01/20/19 at 21:00 Hydralazine HCl (Apresoline) 10 mg Q6H PRN IV SBP>160; Start 01/20/19 at 12:30 Furosemide (Lasix) 40 mg DAILY IV Last administered on 01/22/19 08:49; Admin Dose 40 MG; Start 01/21/19 at 09:00 Pantoprazole (Protonix Tab) 40 mg DAILY@06 PO Last administered on 01/22/19 05:39; Admin Dose 40 MG; Start 01/22/19 at 06:00 Levalbuterol (Xopenex Neb) 1.25 mg Q4H RESP THERAPY HHN Last administered on 01/22/19 08:32; Admin Dose 1.25 MG; Start 01/21/19 at 23:30 Ipratropium [place] (Atrovent 0.02% (Neb)) 0.5 mg Q4H RESP THERAPY HHN Last administered on 01/22/19at 08:32; Admin Dose 0.5 MG; Start 01/22/19 at 01:00 PARAS MCDONALD NP January 22, 2019 12:27
--- NOTE | 2019-01-22 19:17 | CONS ---
Assessment/Plan Assessment/Plan Hospital Course (Demo Recall) IMPRESSION: 1. Shortness of breath, assess congestive heart failure. 2. Increased BNP, assess for congestive heart failure.-systolic acute on chronic by echo 11/12 EF 40-45% 3. Probable chronic obstructive pulmonary disease. 4. Possible pneumonia/upper respiratory infection. 5. Renal failure-acute on chroinic 6. Peripheral arterial disease. 7. Hypertension. 8. Remote tobacco intake. Recc: -Tele -Continue current metoprolol/Norvasc -Continue asa/lasix -Continue ranexa -follow brick mason closely Consultation Date/Type/Reason Admit Date/Time January 20, 2019 at 09:01 Initial Consult Date 01/22/19 Type of Consult Cardiology Reason for Consultation SOB Requesting Provider: NAIN SHERMAN Date/Time of Note DATE: 01/22/19 TIME: 18:04 Exam/Review of Systems Vital Signs Vitals Vital Signs Date Temp Pulse Resp B/P (MAP) Pulse Ox O2 O2 Flow FiO2 Time Delivery Rate 01/22/19 90 95 Venti Mask 12.0 40 16:57 01/22/19 98.6 20 130/78 15:54 (95) Intake and Output 01/21/19 01/21/19 01/22/19 1515:00 23:00 07:00 IntakeIntake Total 300 ml 740 ml 100 ml OutputOutput Total 1150 ml 180 ml BalanceBalance 300 ml -410 ml -80 ml Exam Exam Review of Systems: CONSTITUTIONAL: No fevers, chills. PULMONARY: No sob CARDIOVASCULAR: No chest pain/palpitations GASTROINTESTINAL: No nausea/vomiting. GENITOURINARY: No hematuria/dysuria. MUSCULOSKELETAL: No myagias/arthalgias. PSYCHIATRIC: The patient denies depression. NEUROLOGIC: No weakness Constitutional: alert Psych: no complaints Head: normocephalic ENMT: mucosa pink and moist Neck: supple, jvd (9 cm water) Respiratory: diminished breath sounds Cardiovascular: regular rate and rhythm Gastrointestinal: soft, non-tender Musculoskeletal: muscle tone (normal) Extremities: edema (none) Neurological: other (NO focal deficits) Labs Result Diagram: 01/22/19 0453 01/22/19 0453 Results 24hrs Laboratory Tests Test 01/21/19 23:09 01/22/19 02:00 01/22/19 04:53 01/22/19 08:05 Blood Gas Blood arterial Blood arterial Specimen Source Arterial Blood 01/21/2019 11:48 01/22/2019 2:10: Date Drawn :00 PM 47 AM Arterial Blood 7.280 *L 7.359 pH (Temp corrected) Arterial Blood 50.2 H 41.8 pCO2 (Temp correct) Arterial Blood 58.5 L 135.1 H pO2 (Temp corrected) Arterial Blood 23.1 23.0 HCO3 Arterial Blood -4.1 L -2.3 Base Excess Arterial Blood 85.6 L 98.5 Oxygen Saturatio n Richard Test N/A N/A Arterial Blood LB LB Gas Puncture Site Arterial 0.1 0.3 Blood Carboxyhem oglobin Arterial Blood 0.2 0.4 Methemoglobin Blood Gas A-a O2 161.7 H 536.1 H Differential Oxyhemoglobin 85.3 L 97.8 Percent Blood Gas 37.0 37.0 Temperature Blood Gas NASAL CANNULA MASK - BIPAP Modality FiO2 39.0 100.0 Blood Gas Jenni HUNT RN Critical Value Read Back Blood Gas RR Alhaji GTZ ASSURANCE SENIOR MANAGER Notified Whom Blood Gas 01/22/2019 12:00 01/22/2019 2:20: Notified Time :00 AM 39 AM Blood Gas 24.0 Respiration Rate Blood Gas Actual 27 Respiration Rate Blood Gas 20/5 IPAP/EPAP Ratio White Blood 13.7 #H Count Red Blood Count 4.63 #L Hemoglobin 13.4 L Hematocrit 41.6 #L Mean Corpuscular 89.8 Volume Mean Corpuscular 28.9 L Hemoglobin Mean Corpuscular 32.2 Hemoglobin Tiffani nt Red Cell 14.3 Distribution Width Platelet Count 317 # Mean Platelet 10.6 H Volume Immature 0.400 Granulocytes % Neutrophils % 95.3 H Lymphocytes % 3.4 L Monocytes % 0.8 Eosinophils % 0.0 Basophils % 0.1 Nucleated Red 0.0 Blood Cells % Immature 0.060 H Granulocytes # Neutrophils # 13.1 H Lymphocytes # 0.5 L Monocytes # 0.1 L Eosinophils # 0.0 Basophils # 0.0 Nucleated Red 0.0 Blood Cells # Sodium Level 141 Potassium Level 4.9 Chloride Level 106 Carbon Dioxide 23 Level Anion Gap 12 Blood Urea 67 H Nitrogen Creatinine 2.66 H Est Glomerular Filtrat Rate mL/min Glucose Level 153 Calcium Level 8.6 Phosphorus Level 5.5 H Magnesium Level 1.8 Urine Color YELLOW Urine Clarity CLEAR Urine pH 5.0 Urine Specific 1.010 [place] Urine Ketones NEGATIVE Urine Nitrite NEGATIVE Urine Bilirubin NEGATIVE Urine NEGATIVE Urobilinogen Urine Leukocyte NEGATIVE Esterase Urine Hemoglobin NEGATIVE Urine Glucose NEGATIVE Urine Total NEGATIVE Protein Test 01/22/19 09:30 Blood Gas Blood arterial Specimen Source Arterial Blood 01/22/2019 9:28: Date Drawn 30 AM Arterial Blood 7.395 pH (Temp corrected) Arterial Blood 39.5 pCO2 (Temp correct) Arterial Blood 54.2 *L pO2 (Temp corrected) Arterial Blood 23.6 HCO3 Arterial Blood -1.0 Base Excess Arterial Blood 87.6 L Oxygen Saturatio n Richard Test ACCEPTAB Arterial Blood Right Radial Gas Puncture Site Arterial 0.3 Blood Carboxyhem oglobin Arterial Blood 0.4 Methemoglobin Blood Gas A-a O2 178.3 H Differential Oxyhemoglobin 87.0 L Percent Blood Gas 37.0 Temperature Blood Gas NASAL CANNULA Modality FiO2 39.0 Blood Gas L.SAGAR ECHOLS Critical Value Read Back Blood Gas TM Notified Whom Blood Gas 01/22/2019 9:43: Notified Time 13 AM Medications Medications Current Medications IV Flush (NS 3 ml) 3 ml PER PROTOCOL IV ; Start 01/20/19 at 11:00 Ondansetron HCl (Zofran Inj) 4 mg Q6H PRN IV NAUSEA/VOMITING; Start 01/20/19 at 11:00 Acetaminophen (Tylenol Tab) 650 mg Q6H PRN PO .PAIN 1-3 OR TEMP; Start 01/20/19 at 11:00 Amlodipine Besylate (Norvasc) 10 mg DAILY PO Last administered on 01/22/19at 08:44; Admin Dose 10 MG; Start 01/21/19 at 09:00 Aspirin (Halfprin) 81 mg DAILY PO Last administered on 01/22/19 08:41; Admin Dose 81 MG; Start 01/21/19 at 09:00 Cyclosporine (Restasis) 1 drop Q12 BOTH EYES Last administered on 01/22/19at 08:41; Admin Dose 1 DROP; Start 01/20/19 at 21:00 Donepezil HCl (Aricept) 5 mg DAILY PO Last administered on 01/22/19at 08:41; Admin Dose 5 MG; Start 01/21/19 at 09:00 Metoprolol Succinate (Toprol Xl) 50 mg DAILY PO Last administered on 01/22/19 08:44; Admin Dose 50 MG; Start 01/21/19 at 09:00 Pentoxifylline (Trental) 400 mg WITH MEALS PO Last administered on 01/22/19 17:19; Admin Dose 400 MG; Start 01/20/19 at 18:00 Ranolazine (Ranexa) 500 mg Q12 PO Last administered on 01/22/19 08:41; Admin Dose 500 MG; Start 01/20/19 at 21:00 Tamsulosin HCl (Flomax) 0.4 mg DAILY PO Last administered on 01/22/19 08:42; Admin Dose 0.4 MG; Start 01/21/19 at 09:00 Albuterol/ Ipratropium (Duoneb) 3 ml Q2H RESP THERAPY PRN HHN SHORTNESS OF BREATH Last administered on 01/21/19 22:56; Admin Dose 3 ML; Start 01/20/19 at 13:00 Arformoterol Tartrate (Brovana (Neb)) 2 ml BID NEB Last administered on 01/22/19 08:35; Admin Dose 2 ML; Start 01/20/19 at 21:00 Hydralazine HCl (Apresoline) 10 mg Q6H PRN IV SBP>160; Start 01/20/19 at 12:30 Furosemide (Lasix) 40 mg DAILY IV Last administered on 01/22/19 08:49; Admin Dose 40 MG; Start 01/21/19 at 09:00 Pantoprazole (Protonix Tab) 40 mg DAILY@06 PO Last administered on 01/22/19 05:39; Admin Dose 40 MG; Start 01/22/19 at 06:00 Levalbuterol (Xopenex Neb) 1.25 mg Q4H RESP THERAPY HHN Last administered on 01/22/19 16:57; Admin Dose 1.25 MG; Start 01/21/19 at 23:30 Ipratropium [place] (Atrovent 0.02% (Neb)) 0.5 mg Q4H RESP THERAPY HHN Last administered on 01/22/19 16:57; Admin Dose 0.5 MG; Start 01/22/19 at 01:00 ELISABET MARCANO January 22, 2019 19:17
[2019-01-23] VITALS (13 sets, daily range): BP systolic 114–136; BP diastolic 66–89; PULSE 70–97; RESP 17–20
[2019-01-23] MEDS: LEVALBUTEROL (NEB) 1.25 MG/0.5 ML AMP HHN SCH ×6 (01:39→20:40)
[2019-01-23] MEDS: IPRATROPIUM (NEB) 0.5 MG/2.5 ML AMP HHN SCH ×6 (01:39→20:39)
[2019-01-23] MEDS: PANTOPRAZOLE (EC) 40 MG TAB PO SCH (05:56)
[2019-01-23] MEDS: PENTOXIFYLLINE (SR) 400 MG TAB PO SCH ×3 (08:17→18:02)
[2019-01-23] MEDS: FUROSEMIDE 40 MG INJ IV SCH (08:17)
[2019-01-23] MEDS: TAMSULOSIN (SR) 0.4 MG CAP PO SCH (08:17)
[2019-01-23] MEDS: ASPIRIN (EC) 81 MG TAB PO SCH (08:17)
[2019-01-23] MEDS: DONEPEZIL 5 MG TAB PO SCH (08:17)
[2019-01-23] MEDS: RANOLAZINE (SR) 500 MG TAB PO SCH ×2 (08:17→20:50)
[2019-01-23] MEDS: AMLODIPINE 10 MG TAB PO SCH (08:18)
[2019-01-23] MEDS: METOPROLOL (XL) 50 MG TAB PO SCH (08:18)
[2019-01-23] MEDS: ARFORMOTEROL TARTRATE 15MCG/2 ML AMP NEB SCH ×2 (09:00→20:40)
--- NOTE | 2019-01-23 10:39 | CONS ---
Assessment/Plan Assessment/Plan Assessment/Plan (Daily) Assessment and recommendations; 1. Patient admitted with CHF exacerbation with interval improvement. 2. Renal insufficiency with significant increase in serum creatinine, likely Lasix induced. 3. History of COPD 4. BPH 5. Hypertension 6. Mild hypercapnia. Discontinue further Lasix. Monitor serum creatinine level. Continue other supportive measures. Consultation Date/Type/Reason Admit Date/Time January 20, 2019 at 09:01 Initial Consult Date 01/22/19 Type of Consult Pulmonary Patient is a 83-year-old male who was admitted on the of this month with a few days history of shortness of breath associated with cough. Patient denies any fever, chills, any sputum production or hemoptysis. Upon admission patient was diagnosed with CHF exacerbation and has been started on BiPAP as well as Lasix with significant improvement in symptoms. Past medical history; 1. Underlying cardia myopathy. 2. Likely chronic baseline renal insufficiency. 3. Peripheral vascular disease. 4. Possible underlying COPD as well. 5. BPH. 6. Systemic hypertension. Medications; reviewed. Allergies; none. Social history; patient has recently quit smoking. No stable alcohol or drug abuse. Family history; he is single. 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 Review of systems; denies any headache, sinus symptoms, seizures. Any chest pain, angina, wheezing. Shortness of breath is markedly improved. Denies any sputum production or hemoptysis. Denies any fever or chills. Any abdominal pain, nausea vomiting. Does complain of chronic urinary urgency and hesitation. Denies any melena hematochezia. Denies any weight loss. Denies any orthopnea. Denies any edema. General exam; elderly male, awake alert, currently in no distress. Requesting Provider: NANI SHERMAN Date/Time of Note DATE: 01/23/19 TIME: 10:37 24 HR Interval Summary Free Text/Dictation Patient's condition is stable. Denies any shortness of breath, coughing, wheezing. General exam; elderly male, awake alert, currently in no distress. Exam/Review of Systems Exam Vitals Vital Signs Date Temp Pulse Resp B/P (MAP) Pulse Ox O2 O2 Flow FiO2 Time Delivery Rate 01/23/19 91 98 Venti Mask 12.0 40 09:07 01/23/19 98.3 20 136/89 07:50 (105) Intake and Output 01/22/19 01/22/19 01/23/19 1515:00 23:00 07:00 IntakeIntake Total 900 ml 500 ml OutputOutput Total 1500 ml 600 ml BalanceBalance -600 ml -100 ml Exam H EENT exam; supple neck, positive JVD. No lymphadenopathy. Midline trachea. No thyromegaly. Patient is edentulous. Chest exam; diminished breath sounds bilaterally. No added sounds. S1-S2 audible, no murmurs. Regular rhythm. Abdomen exam; soft, nontender. No organomegaly. Bowel sounds audible. Extremity exam; peripheral edema clubbing. MAT MACHINE TENDER exam; no focal deficit. Results Result Diagram: 01/23/197 01/23/19 0457 Results 24hrs Laboratory Tests Test 01/23/19 04:57 White Blood Count 11.4 H Red Blood Count 4.31 L Hemoglobin 12.3 L Hematocrit 38.1 L Mean Corpuscular Volume 88.4 Mean Corpuscular Hemoglobin 28.5 L Mean Corpuscular Hemoglobin Concent 32.3 Red Cell Distribution Width 14.1 Platelet Count 311 Mean Platelet Volume 10.5 H Immature Granulocytes % 0.400 Neutrophils % 91.9 H Lymphocytes % 5.5 L Monocytes % 2.1 Eosinophils % 0.0 Basophils % 0.1 Nucleated Red Blood Cells % 0.0 Immature Granulocytes # 0.050 H Neutrophils # 10.5 H Lymphocytes # 0.6 L Monocytes # 0.2 L Eosinophils # 0.0 Basophils # 0.0 Nucleated Red Blood Cells # 0.0 Sodium Level 138 Potassium Level 4.9 Chloride Level 103 Carbon Dioxide Level 25 Anion Gap 10 Blood Urea Nitrogen 81 H Creatinine 3.32 H Est Glomerular Filtrat Rate mL/min Glucose Level 142 Calcium Level 8.6 Phosphorus Level 5.3 H Magnesium Level 1.9 Medications Medication Current Medications IV Flush (NS 3 ml) 3 ml PER PROTOCOL IV ; Start 01/20/19 at 11:00 Ondansetron HCl (Zofran Inj) 4 mg Q6H PRN IV NAUSEA/VOMITING; Start 01/20/19 at 11:00 Acetaminophen (Tylenol Tab) 650 mg Q6H PRN PO .PAIN 1-3 OR TEMP; Start 01/20/19 at 11:00 Amlodipine Besylate (Norvasc) 10 mg DAILY PO Last administered on 01/23/19 08:18; Admin Dose 10 MG; Start 01/21/19 at 09:00 Aspirin (Halfprin) 81 mg DAILY PO Last administered on 01/23/19 08:17; Admin Dose 81 MG; Start 01/21/19 at 09:00 Cyclosporine (Restasis) 1 drop Q12 BOTH EYES Last administered on 01/22/19 21:11; Admin Dose 1 DROP; Start 01/20/19 at 21:00 Donepezil HCl (Aricept) 5 mg DAILY PO Last administered on 01/23/19 08:17; Admin Dose 5 MG; Start 01/21/19 at 09:00 Metoprolol Succinate (Toprol Xl) 50 mg DAILY PO Last administered on 01/23/19 08:18; Admin Dose 50 MG; Start 01/21/19 at 09:00 Pentoxifylline (Trental) 400 mg WITH MEALS PO Last administered on 01/23/19 08:17; Admin Dose 400 MG; Start 01/20/19 at 18:00 Ranolazine (Ranexa) 500 mg Q12 PO Last administered on 01/23/19 08:17; Admin Dose 500 MG; Start 01/20/19 at 21:00 Tamsulosin HCl (Flomax) 0.4 mg DAILY PO Last administered on 01/23/19 08:17; Admin Dose 0.4 MG; Start 01/21/19 at 09:00 Albuterol/ Ipratropium (Duoneb) 3 ml Q2H RESP THERAPY PRN HHN SHORTNESS OF BREATH Last administered on 01/21/19 22:56; Admin Dose 3 ML; Start 01/20/19 at 13:00 Arformoterol Tartrate (Brovana (Neb)) 2 ml BID NEB Last administered on 01/22/19 20:48; Admin Dose 2 ML; Start 01/20/19 at 21:00 Hydralazine HCl (Apresoline) 10 mg Q6H PRN IV SBP>160; Start 01/20/19 at 12:30 Furosemide (Lasix) 40 mg DAILY IV Last administered on 01/23/19 08:17; Admin Dose 40 MG; Start 01/21/19 at 09:00 Pantoprazole (Protonix Tab) 40 mg DAILY@06 PO Last administered on 01/23/19 05:56; Admin Dose 40 MG; Start 01/22/19 at 06:00 Levalbuterol (Xopenex Neb) 1.25 mg Q4H RESP THERAPY HHN Last administered on 01/23/19at 09:04; Admin Dose 1.25 MG; Start 01/21/19 at 23:30 Ipratropium [place] (Atrovent 0.02% (Neb)) 0.5 mg Q4H RESP THERAPY HHN Last administered on 01/23/19at 09:04; Admin Dose 0.5 MG; Start 01/22/19 at 01:00 ANGELLA MOORE January 23, 2019 10:39
[2019-01-23] MEDS: CYCLOSPORINE 0.05% OPH DROPERETTE BOTH EYES SCH ×2 (11:44→20:50)
--- NOTE | 2019-01-23 12:02 | CONS ---
Assessment/Plan Assessment/Plan Hospital Course (Demo Recall) IMPRESSION: 1. Shortness of breath, assess congestive heart failure. 2. Increased BNP, assess for congestive heart failure.-systolic acute on chronic by echo 11/12 EF 40-45% 3. Probable chronic obstructive pulmonary disease. 4. Possible pneumonia/upper respiratory infection. 5. Renal failure-acute on chronic and worsening 6. Peripheral arterial disease. 7. Hypertension. 8. Remote tobacco intake. Recc: -Tele -Continue current metoprolol/Norvasc -Continue asa -Continue ranexa -Hold lasix and follow creatnine. ? renal consultation Consultation Date/Type/Reason Admit Date/Time January 20, 2019 at 09:01 Initial Consult Date 01/22/19 Type of Consult Cardiology Reason for Consultation sob Requesting Provider: NAIN SHERMAN Date/Time of Note DATE: 01/23/19 TIME: 11:59 Exam/Review of Systems Vital Signs Vitals Vital Signs Date Temp Pulse Resp B/P (MAP) Pulse Ox O2 O2 Flow FiO2 Time Delivery Rate 01/23/19 98.3 86 20 117/66 93 11:42 (83) 01/23/19 Venti Mask 12.0 40 09:07 Intake and Output 01/22/19 01/22/19 01/23/19 1515:00 23:00 07:00 IntakeIntake Total 900 ml 500 ml OutputOutput Total 1500 ml 600 ml BalanceBalance -600 ml -100 ml Exam Exam Review of Systems: CONSTITUTIONAL: No fevers, chills. PULMONARY: No sob CARDIOVASCULAR: No chest pain/palpitations GASTROINTESTINAL: No nausea/vomiting. GENITOURINARY: No hematuria/dysuria. MUSCULOSKELETAL: No myagias/arthalgias. PSYCHIATRIC: The patient denies depression. NEUROLOGIC: No weakness Constitutional: alert, oriented Head: normocephalic ENMT: mucosa pink and moist Neck: supple, jvd (9 cm water) Respiratory: clear to auscultation Cardiovascular: regular rate and rhythm Gastrointestinal: soft, non-tender Musculoskeletal: muscle tone (normal) Extremities: edema (none) Neurological: other (NO focal deficits) Labs Result Diagram: 01/23/19 0457 01/23/19 0457 Results 24hrs Laboratory Tests Test 01/23/19 04:57 White Blood Count 11.4 H Red Blood Count 4.31 L Hemoglobin 12.3 L Hematocrit 38.1 L Mean Corpuscular Volume 88.4 Mean Corpuscular Hemoglobin 28.5 L Mean Corpuscular Hemoglobin Concent 32.3 Red Cell Distribution Width 14.1 Platelet Count 311 Mean Platelet Volume 10.5 H Immature Granulocytes % 0.400 Neutrophils % 91.9 H Lymphocytes % 5.5 L Monocytes % 2.1 Eosinophils % 0.0 Basophils % 0.1 Nucleated Red Blood Cells % 0.0 Immature Granulocytes # 0.050 H Neutrophils # 10.5 H Lymphocytes # 0.6 L Monocytes # 0.2 L Eosinophils # 0.0 Basophils # 0.0 Nucleated Red Blood Cells # 0.0 Sodium Level 138 Potassium Level 4.9 Chloride Level 103 Carbon Dioxide Level 25 Anion Gap 10 Blood Urea Nitrogen 81 H Creatinine 3.32 H Est Glomerular Filtrat Rate mL/min Glucose Level 142 Calcium Level 8.6 Phosphorus Level 5.3 H Magnesium Level 1.9 Medications Medications Current Medications IV Flush (NS 3 ml) 3 ml PER PROTOCOL IV ; Start 01/20/19 at 11:00 Ondansetron HCl (Zofran Inj) 4 mg Q6H PRN IV NAUSEA/VOMITING; Start 01/20/19 at 11:00 Acetaminophen (Tylenol Tab) 650 mg Q6H PRN PO .PAIN 1-3 OR TEMP; Start 01/20/19 at 11:00 Amlodipine Besylate (Norvasc) 10 mg DAILY PO Last administered on 01/23/19 08:18; Admin Dose 10 MG; Start 01/21/19 at 09:00 Aspirin (Halfprin) 81 mg DAILY PO Last administered on 01/23/19 08:17; Admin Dose 81 MG; Start 01/21/19 at 09:00 Cyclosporine (Restasis) 1 drop Q12 BOTH EYES Last administered on 01/23/19 11:44; Admin Dose 1 DROP; Start 01/20/19 at 21:00 Donepezil HCl (Aricept) 5 mg DAILY PO Last administered on 01/23/19 08:17; Admin Dose 5 MG; Start 01/21/19 at 09:00 Metoprolol Succinate (Toprol Xl) 50 mg DAILY PO Last administered on 01/23/19 08:18; Admin Dose 50 MG; Start 01/21/19 at 09:00 Pentoxifylline (Trental) 400 mg WITH MEALS PO Last administered on 01/23/19 11:45; Admin Dose 400 MG; Start 01/20/19 at 18:00 Ranolazine (Ranexa) 500 mg Q12 PO Last administered on 01/23/19 08:17; Admin Dose 500 MG; Start 01/20/19 at 21:00 Tamsulosin HCl (Flomax) 0.4 mg DAILY PO Last administered on 01/23/19 08:17; Admin Dose 0.4 MG; Start 01/21/19 at 09:00 Albuterol/ Ipratropium (Duoneb) 3 ml Q2H RESP THERAPY PRN HHN SHORTNESS OF BREATH Last administered on 01/21/19 22:56; Admin Dose 3 ML; Start 01/20/19 at 13:00 Arformoterol Tartrate (Brovana (Neb)) 2 ml BID NEB Last administered on 01/22/19 20:48; Admin Dose 2 ML; Start 01/20/19 at 21:00 Hydralazine HCl (Apresoline) 10 mg Q6H PRN IV SBP>160; Start 01/20/19 at 12:30 Pantoprazole (Protonix Tab) 40 mg DAILY@06 PO Last administered on 01/23/19 05:56; Admin Dose 40 MG; Start 01/22/19 at 06:00 Levalbuterol (Xopenex Neb) 1.25 mg Q4H RESP THERAPY HHN Last administered on 01/23/19 09:04; Admin Dose 1.25 MG; Start 01/21/19 at 23:30 Ipratropium [place] (Atrovent 0.02% (Neb)) 0.5 mg Q4H RESP THERAPY HHN Last administered on 01/23/19 09:04; Admin Dose 0.5 MG; Start 01/22/19 at 01:00 ELISABET MARCANO January 23, 2019 12:02
--- NOTE | 2019-01-23 14:37 | PN ---
Date/Time of Note Date/Time of Note DATE: 01/23/19 TIME: 14:36 Assessment/Plan VTE Prophylaxis Risk score (from Ns)>0 risk: 3 SCD applied (from Ns): Yes Pharmacological prophylaxis: heparin Lines/Catheters IV Catheter Type (from [facility]): Saline Lock Urinary Cath still in place: No Assessment/Plan Hospital Course SUBJECTIVE: Remains of Oxygen @ 6L. OBJECTIVE: Physical Exam General: Adequately build 83 year-old male lying in bed in no apparent distress. HEENT: Normocephalic, atraumatic. Eyes: Anicteric sclerae, conjunctivae clear. ENT: Nasal septum midline, oral mucosa moist. Neck supple. Respiratory: Bilaterally diminished breath sounds. No use of accessory muscles of respiration. B/L rales. Cardiovascular: S1, S2 heard. Regular rate and rhythm. Abdomen: Soft, nontender, and nondistended. Bowel sounds positive in all 4 quadrants. Genitourinary: Deferred. Extremities: No cyanosis, no clubbing, no edema. Left lower extremity Cam boot on. Neurologic: Cranial nerves II through XII grossly intact. The patient is awake, alert, and oriented. Skin: Normal skin turgor. No skin rashes. Labs & Vitals per chart ASSESSMENT & PLAN 83-year-old male with comorbidities including hypertension, CKD, peripheral artery disease, and COPD who came to the emergency room with chief complaint of dyspnea with evidence of underlying hypoxia and pulmonary infiltrates, who was admitted to inpatient setting for further treatment and evaluation. 1. Acute respiratory failure. -Hypoxic -Etiology unclear. May be multifactorial in origin including underlying bilateral pleural effusions. -Continue supplemental oxygen. -Continue inhaled bronchodilators. -Continue diuresis. -Pulmonology following. 2. Bilateral pleural effusions. -Continue diuresis while carefully monitoring renal function. 3. CHF exacerbation, acute on chronic systolic dysfunction. -Continue diuretic therapy while carefully monitoring renal function. -Cardiology following. 4. Peripheral artery disease. -Continue aspirin and pentoxifylline. 5. Hypertension. -Continue antihypertensives. -Hold ARBs because of worsening renal function. 6. Acute on chronic kidney disease. -Hold nephrotoxic medications. -Monitor BUN and creatinine closely. -Nephrology consult will be obtained. 7. COPD. -Continue the patient on inhaled bronchodilators; JESUS and LABA. -Status post IV steroids. 8. Fluids, electrolytes, and nutrition. -Low-cholesterol diet. 9. DVT prophylaxis. -Subcutaneous heparin. 10. Plan. -Continue diuresis while clinically monitoring renal function. -Await clinical improvement before discharging the patient home. The patient was seen in collaboration with Dr. Campuzano. Result Diagram: 01/23/19 0457 01/23/19 0457 Results 24hrs Laboratory Tests Test 01/23/19 04:57 White Blood Count 11.4 H Red Blood Count 4.31 L Hemoglobin 12.3 L Hematocrit 38.1 L Mean Corpuscular Volume 88.4 Mean Corpuscular Hemoglobin 28.5 L Mean Corpuscular Hemoglobin Concent 32.3 Red Cell Distribution Width 14.1 Platelet Count 311 Mean Platelet Volume 10.5 H Immature Granulocytes % 0.400 Neutrophils % 91.9 H Lymphocytes % 5.5 L Monocytes % 2.1 Eosinophils % 0.0 Basophils % 0.1 Nucleated Red Blood Cells % 0.0 Immature Granulocytes # 0.050 H Neutrophils # 10.5 H Lymphocytes # 0.6 L Monocytes # 0.2 L Eosinophils # 0.0 Basophils # 0.0 Nucleated Red Blood Cells # 0.0 Sodium Level 138 Potassium Level 4.9 Chloride Level 103 Carbon Dioxide Level 25 Anion Gap 10 Blood Urea Nitrogen 81 H Creatinine 3.32 H Est Glomerular Filtrat Rate mL/min Glucose Level 142 Calcium Level 8.6 Phosphorus Level 5.3 H Magnesium Level 1.9 Exam/Review of Systems Exam Vitals Vital Signs Date Temp Pulse Resp B/P (MAP) Pulse Ox O2 O2 Flow FiO2 Time Delivery Rate 01/23/19 94 18 96 Nasal 5.0 13:14 Cannula 01/23/19 98.3 117/66 11:42 (83) 01/23/19 40 09:07 Intake and Output 01/22/19 01/22/19 01/23/19 1515:00 23:00 07:00 IntakeIntake Total 900 ml 500 ml OutputOutput Total 1500 ml 600 ml BalanceBalance -600 ml -100 ml Results Results 24hrs Laboratory Tests Test 01/23/19 04:57 White Blood Count 11.4 H Red Blood Count 4.31 L Hemoglobin 12.3 L Hematocrit 38.1 L Mean Corpuscular Volume 88.4 Mean Corpuscular Hemoglobin 28.5 L Mean Corpuscular Hemoglobin Concent 32.3 Red Cell Distribution Width 14.1 Platelet Count 311 Mean Platelet Volume 10.5 H Immature Granulocytes % 0.400 Neutrophils % 91.9 H Lymphocytes % 5.5 L Monocytes % 2.1 Eosinophils % 0.0 Basophils % 0.1 Nucleated Red Blood Cells % 0.0 Immature Granulocytes # 0.050 H Neutrophils # 10.5 H Lymphocytes # 0.6 L Monocytes # 0.2 L Eosinophils # 0.0 Basophils # 0.0 Nucleated Red Blood Cells # 0.0 Sodium Level 138 Potassium Level 4.9 Chloride Level 103 Carbon Dioxide Level 25 Anion Gap 10 Blood Urea Nitrogen 81 H Creatinine 3.32 H Est Glomerular Filtrat Rate mL/min Glucose Level 142 Calcium Level 8.6 Phosphorus Level 5.3 H Magnesium Level 1.9 Medications Medication Current Medications IV Flush (NS 3 ml) 3 ml PER PROTOCOL IV ; Start 01/20/19 at 11:00 Ondansetron HCl (Zofran Inj) 4 mg Q6H PRN IV NAUSEA/VOMITING; Start 01/20/19 at 11:00 Acetaminophen (Tylenol Tab) 650 mg Q6H PRN PO .PAIN 1-3 OR TEMP; Start 01/20/19 at 11:00 Amlodipine Besylate (Norvasc) 10 mg DAILY PO Last administered on 01/23/19 08:18; Admin Dose 10 MG; Start 01/21/19 at 09:00 Aspirin (Halfprin) 81 mg DAILY PO Last administered on 01/23/19 08:17; Admin Dose 81 MG; Start 01/21/19 at 09:00 Cyclosporine (Restasis) 1 drop Q12 BOTH EYES Last administered on 01/23/19 11:44; Admin Dose 1 DROP; Start 01/20/19 at 21:00 Donepezil HCl (Aricept) 5 mg DAILY PO Last administered on 01/23/19 08:17; Admin Dose 5 MG; Start 01/21/19 at 09:00 Metoprolol Succinate (Toprol Xl) 50 mg DAILY PO Last administered on 01/23/19 08:18; Admin Dose 50 MG; Start 01/21/19 at 09:00 Pentoxifylline (Trental) 400 mg WITH MEALS PO Last administered on 01/23/19 11:45; Admin Dose 400 MG; Start 01/20/19 at 18:00 Ranolazine (Ranexa) 500 mg Q12 PO Last administered on 01/23/19 08:17; Admin Dose 500 MG; Start 01/20/19 at 21:00 Tamsulosin HCl (Flomax) 0.4 mg DAILY PO Last administered on 01/23/19 08:17; Admin Dose 0.4 MG; Start 01/21/19 at 09:00 Albuterol/ Ipratropium (Duoneb) 3 ml Q2H RESP THERAPY PRN HHN SHORTNESS OF BREATH Last administered on 01/21/19 22:56; Admin Dose 3 ML; Start 01/20/19 at 13:00 Arformoterol Tartrate (Brovana (Neb)) 2 ml BID NEB Last administered on 01/22/19 20:48; Admin Dose 2 ML; Start 01/20/19 at 21:00 Hydralazine HCl (Apresoline) 10 mg Q6H PRN IV SBP>160; Start 01/20/19 at 12:30 Pantoprazole (Protonix Tab) 40 mg DAILY@06 PO Last administered on 01/23/19 05:56; Admin Dose 40 MG; Start 01/22/19 at 06:00 Levalbuterol (Xopenex Neb) 1.25 mg Q4H RESP THERAPY HHN Last administered on 01/23/19 13:14; Admin Dose 1.25 MG; Start 01/21/19 at 23:30 Ipratropium [place] (Atrovent 0.02% (Neb)) 0.5 mg Q4H RESP THERAPY HHN Last administered on 01/23/19 13:14; Admin Dose 0.5 MG; Start 01/22/19 at 01:00 PARAS MCDONALD NP January 23, 2019 14:37
[2019-01-24] VITALS (12 sets, daily range): BP systolic 111–131; BP diastolic 64–81; PULSE 80–97; RESP 19–23
[2019-01-24] MEDS: IPRATROPIUM (NEB) 0.5 MG/2.5 ML AMP HHN SCH ×6 (00:47→20:09)
[2019-01-24] MEDS: LEVALBUTEROL (NEB) 1.25 MG/0.5 ML AMP HHN SCH ×6 (00:47→20:09)
[2019-01-24] MEDS: PANTOPRAZOLE (EC) 40 MG TAB PO SCH (05:54)
--- NOTE | 2019-01-24 08:10 | CONS ---
DATE OF ADMISSION: 01/20/2019 DATE OF CONSULTATION: 01/23/2019 TYPE OF CONSULTATION: Nephrology. REASON FOR CONSULTATION: Acute kidney injury. PHYSICIAN REQUESTING CONSULT: Dr. Ellis. HISTORY OF PRESENT ILLNESS: This is an 83-year-old male with a past medical history of chronic kidne y disease with baseline creatinine around 1.2 to 1.5 mg/dL, history of hypertension, history of perip heral arterial disease, history of COPD, history of cardiomyopathy, history of BPH, who presents to [facility] with shortness of breath. The patient came to emergency room with dyspne a on exertion for the past 3 days, cough, sore throat, productive sputum. The patient upon arrival t o the emergency room was noted to have a chest x-ray which showed findings of pulmonary congestion, i nfiltrates, elevated BNP. The patient with normal white count. In the emergency room, the patient s tarted IV antibiotics for possible pneumonia and diuretic therapy. The patient was subsequently admi tted to telemetry. While on telemetry, the patient was seen by precision machine operator, Dr. Waters. The patie nt clinically continued to have ongoing shortness of breath. In terms of patient's renal history, on admission, the patient noted to have a creatinine of 1.93 mg/ dL. The patient's creatinine has increased to 2.3 mg/dL in the course of 48 hours. During that time , patient has been on diuretic therapy. The patient has also received antihypertensive medication. There have been no reports of any hemoptysis, hematemesis or hematochezia. PAST MEDICAL HISTORY: As stated above, history of chronic kidney disease stage III, history of diast olic heart failure, history of BPH, history COPD, history of hypertension. PAST SURGICAL HISTORY: Has been reviewed. Patient has left lower extremity surgery, abdominal surge ry, prostate surgery. FAMILY HISTORY: No family history of kidney disease. SOCIAL HISTORY: The patient is a former smoker. MEDICATIONS: The patient's medications reviewed. REVIEW OF SYSTEMS: A 14-point review of systems conducted. Pertinent positives stated in HPI, other waldrop negative. PHYSICAL EXAMINATION: VITAL SIGNS: Blood pressure is 114/66, respirations 20, pulse 80, temperature 98.3. HEENT: Head is normocephalic. NECK: Supple. HEART: Regular rate. LUNGS: Show diminished breath sounds at the base. ABDOMEN: Soft, nontender to palpation. No rebound or guarding. EXTREMITIES: Negative for clubbing or cyanosis, no edema. DERMATOLOGIC: No rashes. MUSCULOSKELETAL: No joint effusions. NEUROLOGIC: No focal deficits. LABORATORY DATA: Has been reviewed. IMAGING STUDIES: Have been reviewed. CT scan of the chest was reviewed. ASSESSMENT AND PLAN: This is an 83-year-old male who presents with: 1. Nonoliguric acute kidney injury on top of chronic kidney disease stage III. Previous baseline cr eatinine around 1.4 to 1.5 mg/dL. Etiology of acute kidney injury is secondary to hemodynamics, diur etic therapy. The possibility of tubular injury is a consideration. Lower suspicion for acute glome rulonephritis or vasculitis given patient's clinical presentation. Recommendation at this point is t o check a UA with microanalysis, check urine lytes. Agree with holding diuretic therapy. Would othe rwise continue supportive care, renally dose all meds, avoid any KATHY inhibitor or ARBs at this time. 2. Anemia. Monitor hemoglobin and hematocrit levels. 3. Mineral bone disorder, monitor calcium and phosphorus level. 4. Acute hypoxic respiratory failure, etiology is likely secondary to chronic obstructive pulmonary disease exacerbation, pneumonia. Lower suspicion for acute heart failure. At this point, continue m edical management. Continue supplemental oxygen, continue nebulizers. Continue antibiotic therapy. Follow up with pulmonary. Consider trial of steroids. 5. History of diastolic heart failure. The patient currently appears compensated on exam. We would hold diuretic therapy as stated above. Continue to monitor. 6. Peripheral arterial disease. Continue medical management. 7. Hypertension. Continue current blood pressure regimen. 8. History of tobacco abuse. Thank you, Caleb, for this interesting consult. It will be a pleasure to follow patient with you t hroughout the hospital course. Dictated By: HECTOR BERMUDEZ DO NR/NTS Conf#: [id number] DID#: [id number]
[2019-01-24] MEDS: DONEPEZIL 5 MG TAB PO SCH (08:56)
[2019-01-24] MEDS: PENTOXIFYLLINE (SR) 400 MG TAB PO SCH ×3 (08:56→18:10)
[2019-01-24] MEDS: RANOLAZINE (SR) 500 MG TAB PO SCH ×2 (08:56→20:40)
[2019-01-24] MEDS: AMLODIPINE 10 MG TAB PO SCH (08:57)
[2019-01-24] MEDS: METOPROLOL (XL) 50 MG TAB PO SCH (08:57)
[2019-01-24] MEDS: CYCLOSPORINE 0.05% OPH DROPERETTE BOTH EYES SCH ×2 (08:57→20:40)
[2019-01-24] MEDS: TAMSULOSIN (SR) 0.4 MG CAP PO SCH (08:57)
[2019-01-24] MEDS: ASPIRIN (EC) 81 MG TAB PO SCH (09:03)
[2019-01-24] MEDS: ARFORMOTEROL TARTRATE 15MCG/2 ML AMP NEB SCH ×2 (09:12→20:09)
[2019-01-24] MEDS: SOD CHLORIDE 0.9% 1,000 ML IV SCH (10:31)
--- NOTE | 2019-01-24 10:54 | PN ---
Date/Time of Note Date/Time of Note DATE: 01/24/19 TIME: 10:53 Assessment/Plan VTE Prophylaxis Risk score (from Ns)>0 risk: 4 SCD applied (from Ns): Yes Pharmacological prophylaxis: heparin Lines/Catheters IV C[facility]ter [facility] (from [facility] Saline Lock Urinary Cath still in place: No Assessment/Plan Hospital Course SUBJECTIVE: Remains of room air. OBJECTIVE: Physical Exam General: Adequately build 83 year-old male lying in bed in no apparent distress. HEENT: Normocephalic, atraumatic. Eyes: Anicteric sclerae, conjunctivae clear. ENT: Nasal septum midline, oral mucosa moist. Neck supple. Respiratory: Bilaterally diminished breath sounds. No use of accessory muscles of respiration. B/L rales. Cardiovascular: S1, S2 heard. Regular rate and rhythm. Abdomen: Soft, nontender, and nondistended. Bowel sounds positive in all 4 quadrants. Genitourinary: Deferred. Extremities: No cyanosis, no clubbing, no edema. Left lower extremity Cam boot on. Neurologic: Cranial nerves II through XII grossly intact. The patient is awake, alert, and oriented. Skin: Normal skin turgor. No skin rashes. Labs & Vitals per chart ASSESSMENT & PLAN 83-year-old male with comorbidities including hypertension, CKD, peripheral artery disease, and COPD who came to the emergency room with chief complaint of dyspnea with evidence of underlying hypoxia and pulmonary infiltrates, who was admitted to inpatient setting for further treatment and evaluation. 1. Acute respiratory failure. -Hypoxic -Etiology unclear. May be multifactorial in origin including underlying bilateral pleural effusions. -Continue supplemental oxygen. -Continue inhaled bronchodilators. -Continue diuresis. -Pulmonology following. 2. Bilateral pleural effusions. -Continue diuresis while carefully monitoring renal function. 3. CHF exacerbation, acute on chronic systolic dysfunction. -Continue diuretic therapy while carefully monitoring renal function. -Cardiology following. 4. Peripheral artery disease. -Continue aspirin and pentoxifylline. 5. Hypertension. -Continue antihypertensives. -Hold ARBs because of worsening renal function. 6. Acute on chronic kidney disease. -Hold nephrotoxic medications. -Monitor BUN and creatinine closely. -Nephrology following. 7. COPD. -Continue the patient on inhaled bronchodilators; JESUS and LABA. -Status post IV steroids. 8. Fluids, electrolytes, and nutrition. -Low-cholesterol diet. 9. DVT prophylaxis. -Subcutaneous heparin. 10. Plan. -Continue diuresis while clinically monitoring renal function. -Await clinical improvement before discharging the patient home. Called the patient's son-in-law Aubrey, and explained the patient's current condition. The patient was seen in collaboration with Dr. Campuzano. Result Diagram: 01/24/19 0457 01/24/19 0457 Results 24hrs Laboratory Tests Test 01/24/19 04:57 01/24/19 08:50 White Blood Count 11.3 H Red Blood Count 4.34 L Hemoglobin 12.6 L Hematocrit 38.5 L Mean Corpuscular Volume 88.7 Mean Corpuscular Hemoglobin 29.0 Mean Corpuscular Hemoglobin Concent 32.7 Red Cell Distribution Width 13.9 Platelet Count 294 Mean Platelet Volume 10.6 H Immature Granulocytes % 0.500 H Neutrophils % 83.8 H Lymphocytes % 9.1 L Monocytes % 6.5 Eosinophils % 0.0 Basophils % 0.1 Nucleated Red Blood Cells % 0.0 Immature Granulocytes # 0.060 H Neutrophils # 9.5 H Lymphocytes # 1.0 Monocytes # 0.7 Eosinophils # 0.0 Basophils # 0.0 Nucleated Red Blood Cells # 0.0 Sodium Level 141 Potassium Level 4.6 Chloride Level 104 Carbon Dioxide Level 25 Anion Gap 12 Blood Urea Nitrogen 94 H Creatinine 3.63 H Est Glomerular Filtrat Rate mL/min Glucose Level 102 # Calcium Level 8.6 Phosphorus Level 5.0 H Magnesium Level 2.1 Urine Color YELLOW Urine Clarity CLEAR Urine pH 5.0 Urine Specific [place] 1.014 Urine Ketones NEGATIVE Urine Nitrite NEGATIVE Urine Bilirubin NEGATIVE Urine Urobilinogen NEGATIVE Urine Leukocyte Esterase NEGATIVE Urine Hemoglobin NEGATIVE Urine Random Sodium 58 Urine Glucose NEGATIVE Urine Total Protein 19.0 H Exam/Review of Systems Exam Vitals Vital Signs Date Temp Pulse Resp B/P (MAP) Pulse Ox O2 O2 Flow FiO2 Time Delivery Rate 01/24/19 5.0 09:15 01/24/19 84 15 9 Nasal 09:15 Cannula 01/24/19 98.7 123/77 08:08 (92) 01/23/19 40 09:07 Intake and Output 01/23/19 01/23/19 01/24/19 1515:00 23:00 07:00 IntakeIntake Total 300 ml 250 ml OutputOutput Total 400 ml 600 ml BalanceBalance -100 ml -350 ml Results Results 24hrs Laboratory Tests Test 01/24/19 04:57 01/24/19 08:50 White Blood Count 11.3 H Red Blood Count 4.34 L Hemoglobin 12.6 L Hematocrit 38.5 L Mean Corpuscular Volume 88.7 Mean Corpuscular Hemoglobin 29.0 Mean Corpuscular Hemoglobin Concent 32.7 Red Cell Distribution Width 13.9 Platelet Count 294 Mean Platelet Volume 10.6 H Immature Granulocytes % 0.500 H Neutrophils % 83.8 H Lymphocytes % 9.1 L Monocytes % 6.5 Eosinophils % 0.0 Basophils % 0.1 Nucleated Red Blood Cells % 0.0 Immature Granulocytes # 0.060 H Neutrophils # 9.5 H Lymphocytes # 1.0 Monocytes # 0.7 Eosinophils # 0.0 Basophils # 0.0 Nucleated Red Blood Cells # 0.0 Sodium Level 141 Potassium Level 4.6 Chloride Level 104 Carbon Dioxide Level 25 Anion Gap 12 Blood Urea Nitrogen 94 H Creatinine 3.63 H Est Glomerular Filtrat Rate mL/min Glucose Level 102 # Calcium Level 8.6 Phosphorus Level 5.0 H Magnesium Level 2.1 Urine Color YELLOW Urine Clarity CLEAR Urine pH 5.0 Urine Specific [place] 1.014 Urine Ketones NEGATIVE Urine Nitrite NEGATIVE Urine Bilirubin NEGATIVE Urine Urobilinogen NEGATIVE Urine Leukocyte Esterase NEGATIVE Urine Hemoglobin NEGATIVE Urine Random Sodium 58 Urine Glucose NEGATIVE Urine Total Protein 19.0 H Medications Medication Current Medications IV Flush (NS 3 ml) 3 ml PER PROTOCOL IV ; Start 01/20/19 at 11:00 Ondansetron HCl (Zofran Inj) 4 mg Q6H PRN IV NAUSEA/VOMITING; Start 01/20/19 at 11:00 Acetaminophen (Tylenol Tab) 650 mg Q6H PRN PO .PAIN 1-3 OR TEMP; Start 01/20/19 at 11:00 Amlodipine Besylate (Norvasc) 10 mg DAILY PO Last administered on 01/24/19at 08:57; Admin Dose 10 MG; Start 01/21/19 at 09:00 Aspirin (Halfprin) 81 mg DAILY PO Last administered on 01/24/19at 09:03; Admin Dose 81 MG; Start 01/21/19 at 09:00 Cyclosporine (Restasis) 1 drop Q12 BOTH EYES Last administered on 01/24/19at 08:57; Admin Dose 1 DROP; Start 01/20/19 at 21:00 Donepezil HCl (Aricept) 5 mg DAILY PO Last administered on 01/24/19 08:56; Admin Dose 5 MG; Start 01/21/19 at 09:00 Metoprolol Succinate (Toprol Xl) 50 mg DAILY PO Last administered on 01/24/19 08:57; Admin Dose 50 MG; Start 01/21/19 at 09:00 Pentoxifylline (Trental) 400 mg WITH MEALS PO Last administered on 01/24/19 08:56; Admin Dose 400 MG; Start 01/20/19 at 18:00 Ranolazine (Ranexa) 500 mg Q12 PO Last administered on 01/24/19 08:56; Admin Dose 500 MG; Start 01/20/19 at 21:00 Tamsulosin HCl (Flomax) 0.4 mg DAILY PO Last administered on 01/24/19 08:57; Admin Dose 0.4 MG; Start 01/21/19 at 09:00 Albuterol/ Ipratropium (Duoneb) 3 ml Q2H RESP THERAPY PRN HHN SHORTNESS OF BREATH Last administered on 01/21/19 22:56; Admin Dose 3 ML; Start 01/20/19 at 13:00 Arformoterol Tartrate (Brovana (Neb)) 2 ml BID NEB Last administered on 01/24/19 09:12; Admin Dose 2 ML; Start 01/20/19 at 21:00 Hydralazine HCl (Apresoline) 10 mg Q6H PRN IV SBP>160; Start 01/20/19 at 12:30 Pantoprazole (Protonix Tab) 40 mg DAILY@06 PO Last administered on 01/24/19 05:54; Admin Dose 40 MG; Start 01/22/19 at 06:00 Levalbuterol (Xopenex Neb) 1.25 mg Q4H RESP THERAPY HHN Last administered on 01/24/19 09:12; Admin Dose 1.25 MG; Start 01/21/19 at 23:30 Ipratropium [place] (Atrovent 0.02% (Neb)) 0.5 mg Q4H RESP THERAPY HHN Last administered on 01/24/19 09:13; Admin Dose 0.5 MG; Start 01/22/19 at 01:00 Sodium Chloride 1,000 ml @ 50 mls/hr Q20H IV Last administered on 01/24/19at 10:31; Admin Dose 50 MLS/HR; Start 01/24/19 at 10:30; Stop 01/26/19 at 02:29 PARAS MCDONALD NP January 24, 2019 10:54
--- NOTE | 2019-01-24 14:32 | PN ---
DATE: 01/24/2019 SUBJECTIVE: The patient is stable. No events overnight. No fevers, chills, nausea or vomiting. OBJECTIVE: VITAL SIGNS: Blood pressure is 122/77, respiration 19, pulse 91, temperature 98.7. HEENT: Head is normocephalic. NECK: Supple. HEART: Regular rate. LUNGS: Show diminished breath sounds at the base. ABDOMEN: Soft, nontender to palpation without rebound or guarding. EXTREMITIES: Negative for clubbing, cyanosis. No edema. DERMATOLOGIC: No rashes. MUSCULOSKELETAL: No joint effusion. NEUROLOGIC: No change in exam. MEDICATIONS: Have been reviewed. LABORATORY DATA: Have been reviewed. Urinalysis has been reviewed. ASSESSMENT AND PLAN: 1. Nonoliguric acute kidney injury on top of chronic kidney disease stage III with previous baseline creatinine of 1.4 to 1.5 mg/dL. Etiology of acute kidney injury is secondary to hemodynamics, diure tic therapy. The patient's urinalysis was reviewed. No evidence of active sediment. The patient's renal function has continued to decline. At this point, we would give the patient a gentle fluid martine llenge with normal saline at 50 mL an hour. Continue to hold diuretic therapy. The patient appears euvolemic to hypokalemic. We would otherwise continue supportive care and renally dose all medicatio ns. Please avoiding KATHY and ARBs at this time. 2. Anemia. Monitor hemoglobin and hematocrit levels. 3. Mineral bone disorder. Monitor calcium and phosphorus levels. 4. Acute hypoxic respiratory failure secondary to chronic obstructive pulmonary disease exacerbation , pneumonia. Continue current medical management. Continue supplemental oxygen, nebulizer and antib iotic therapy. Follow up with pulmonary. 5. History of diastolic heart failure. The patient is currently compensated on exam. We will yenifer nue to hold diuretic therapy. We will give the patient gentle fluid challenge. 6. Peripheral arterial disease. Continue medical management. 7. Hypertension. Continue current blood pressure regimen. 8. History of tobacco. Dictated By: HECTOR BERMUDEZ DO NR/NTS Conf#: [id number] DID#: [id number] CC: JAE DURAN MD; ELISABET MARCANO MD;*EndCC*
--- NOTE | 2019-01-24 14:44 | CONS ---
Consult Date/Type/Reason Admit Date/Time January 20, 2019 at 09:01 Initial Consult Date 01/22/19 Type of Consult Pulmonary Requesting Provider: NAIN SHERMAN Date/Time of Note DATE: 01/24/19 TIME: 14:43 Subjective Patient better today no respiratory distress Objective Vital Signs Date Temp Pulse Resp B/P (MAP) Pulse Ox O2 O2 Flow FiO2 Time Delivery Rate 01/24/19 86 12:43 01/24/19 97.6 19 131/76 90 Nasal 3.0 11:23 (94) Cannula 01/23/19 40 09:07 Intake and Output 01/23/19 01/23/19 01/24/19 1515:00 23:00 07:00 IntakeIntake Total 300 ml 250 ml OutputOutput Total 400 ml 600 ml BalanceBalance -100 ml -350 ml Exam GENERAL: Elderly Czech gentleman comfortable at rest VITAL SIGNS: per chart NECK: Supple. No JVD or lymphadenopathy. CARDIAC EXAM: S1, S2. No added sounds or murmurs. CHEST: clear bilaterally, No added sounds, rales or wheezes ABDOMEN: Soft, nontender. No guarding or rebound. EXTREMITIES: No cyanosis, clubbing or edema. NEUROLOGIC: Generalized weakness. No focal deficits. Vent Setting Fraction of Inspired Oxygen pe: 40 Results/Medications Result Diagram: 01/24/1945601/24/19456 Results 24 hrs Laboratory Tests Test 01/24/19 04:57 01/24/19 08:50 White Blood Count 11.3 H Red Blood Count 4.34 L Hemoglobin 12.6 L Hematocrit 38.5 L Mean Corpuscular Volume 88.7 Mean Corpuscular Hemoglobin 29.0 Mean Corpuscular Hemoglobin Concent 32.7 Red Cell Distribution Width 13.9 Platelet Count 294 Mean Platelet Volume 10.6 H Immature Granulocytes % 0.500 H Neutrophils % 83.8 H Lymphocytes % 9.1 L Monocytes % 6.5 Eosinophils % 0.0 Basophils % 0.1 Nucleated Red Blood Cells % 0.0 Immature Granulocytes # 0.060 H Neutrophils # 9.5 H Lymphocytes # 1.0 Monocytes # 0.7 Eosinophils # 0.0 Basophils # 0.0 Nucleated Red Blood Cells # 0.0 Sodium Level 141 Potassium Level 4.6 Chloride Level 104 Carbon Dioxide Level 25 Anion Gap 12 Blood Urea Nitrogen 94 H Creatinine 3.63 H Est Glomerular Filtrat Rate mL/min Glucose Level 102 # Calcium Level 8.6 Phosphorus Level 5.0 H Magnesium Level 2.1 Urine Color YELLOW Urine Clarity CLEAR Urine pH 5.0 Urine Specific [place] 1.014 Urine Ketones NEGATIVE Urine Nitrite NEGATIVE Urine Bilirubin NEGATIVE Urine Urobilinogen NEGATIVE Urine Leukocyte Esterase NEGATIVE Urine Hemoglobin NEGATIVE Urine Random Creatinine 70.69 Urine Random Sodium 58 Urine Glucose NEGATIVE Urine Total Protein 19.0 H Medications Current Medications IV Flush (NS 3 ml) 3 ml PER PROTOCOL IV ; Start 01/20/19 at 11:00 Ondansetron HCl (Zofran Inj) 4 mg Q6H PRN IV NAUSEA/VOMITING; Start 01/20/19 at 11:00 Acetaminophen (Tylenol Tab) 650 mg Q6H PRN PO .PAIN 1-3 OR TEMP; Start 01/20/19 at 11:00 Amlodipine Besylate (Norvasc) 10 mg DAILY PO Last administered on 01/24/19 08:57; Admin Dose 10 MG; Start 01/21/19 at 09:00 Aspirin (Halfprin) 81 mg DAILY PO Last administered on 01/24/19 09:03; Admin Dose 81 MG; Start 01/21/19 at 09:00 Cyclosporine (Restasis) 1 drop Q12 BOTH EYES Last administered on 01/24/19 08:57; Admin Dose 1 DROP; Start 01/20/19 at 21:00 Donepezil HCl (Aricept) 5 mg DAILY PO Last administered on 01/24/19 08:56; Admin Dose 5 MG; Start 01/21/19 at 09:00 Metoprolol Succinate (Toprol Xl) 50 mg DAILY PO Last administered on 01/24/19 08:57; Admin Dose 50 MG; Start 01/21/19 at 09:00 Pentoxifylline (Trental) 400 mg WITH MEALS PO Last administered on 01/24/19 13:05; Admin Dose 400 MG; Start 01/20/19 at 18:00 Ranolazine (Ranexa) 500 mg Q12 PO Last administered on 01/24/19 08:56; Admin Dose 500 MG; Start 01/20/19 at 21:00 Tamsulosin HCl (Flomax) 0.4 mg DAILY PO Last administered on 01/24/19 08:57; Admin Dose 0.4 MG; Start 01/21/19 at 09:00 Albuterol/ Ipratropium (Duoneb) 3 ml Q2H RESP THERAPY PRN HHN SHORTNESS OF BREATH Last administered on 01/21/19at 22:56; Admin Dose 3 ML; Start 01/20/19 at 13:00 Arformoterol Tartrate (Brovana (Neb)) 2 ml BID NEB Last administered on 01/24/19at 09:12; Admin Dose 2 ML; Start 01/20/19 at 21:00 Hydralazine HCl (Apresoline) 10 mg Q6H PRN IV SBP>160; Start 01/20/19 at 12:30 Pantoprazole (Protonix Tab) 40 mg DAILY@06 PO Last administered on 01/24/19at 05:54; Admin Dose 40 MG; Start 01/22/19 at 06:00 Levalbuterol (Xopenex Neb) 1.25 mg Q4H RESP THERAPY HHN Last administered on 01/24/19at 14:11; Admin Dose 1.25 MG; Start 01/21/19 at 23:30 Ipratropium [place] (Atrovent 0.02% (Neb)) 0.5 mg Q4H RESP THERAPY HHN Last administered on 01/24/19at 14:11; Admin Dose 0.5 MG; Start 01/22/19 at 01:00 Sodium Chloride 1,000 ml @ 50 mls/hr Q20H IV Last administered on 01/24/19at 10:31; Admin Dose 50 MLS/HR; Start 01/24/19 at 10:30; Stop 01/26/19 at 02:29 Assessment/Plan Hospital Course (Demo Recall) Assessment 1. Acute hypoxemic respiratory failure likely secondary to COPD exacerbation possible pulmonary edema 2. Chronic kidney disease 3. history of COPD 4. History of BPH Plan 1. Continue supplemental O2 decrease as tolerated 2. Renal recommendations 3. Discharge planning okay from pulmonary standpoint JOSELITO SPEAR MD, [facility] January 24, 2019 14:44
--- NOTE | 2019-01-24 14:46 | CONS ---
Assessment/Plan Assessment/Plan Hospital Course (Demo Recall) IMPRESSION: 1. Shortness of breath, assess congestive heart failure. 2. Increased BNP, assess for congestive heart failure.-systolic acute on chronic by echo 11/12 EF 40-45% 3. Probable chronic obstructive pulmonary disease. 4. Possible pneumonia/upper respiratory infection. 5. Renal failure-acute on chronic and worsening 6. Peripheral arterial disease. 7. Hypertension. 8. Remote tobacco intake. Recc: -Tele -Continue current metoprolol/Norvasc -Continue asa -Continue ranexa -Hold lasix and follow creatnine with renal now following Consultation Date/Type/Reason Admit Date/Time January 20, 2019 at 09:01 Initial Consult Date 01/22/19 Type of Consult Cardiology Reason for Consultation HTN Requesting Provider: NAIN SHERMAN Date/Time of Note DATE: 01/24/19 TIME: 14:44 Exam/Review of Systems Vital Signs Vitals Vital Signs Date Temp Pulse Resp B/P (MAP) Pulse Ox O2 O2 Flow FiO2 Time Delivery Rate 01/24/19 86 12:43 01/24/19 97.6 19 131/76 90 Nasal 3.0 11:23 (94) Cannula 01/23/19 40 09:07 Intake and Output 01/23/19 01/23/19 01/24/19 1515:00 23:00 07:00 IntakeIntake Total 300 ml 250 ml OutputOutput Total 400 ml 600 ml BalanceBalance -100 ml -350 ml Exam Exam Review of Systems: CONSTITUTIONAL: No fevers, chills. PULMONARY: No sob CARDIOVASCULAR: No chest pain/palpitations GASTROINTESTINAL: No nausea/vomiting. GENITOURINARY: No hematuria/dysuria. MUSCULOSKELETAL: No myagias/arthalgias. PSYCHIATRIC: The patient denies depression. NEUROLOGIC: No weakness Constitutional: alert, oriented Psych: no complaints Head: normocephalic ENMT: mucosa pink and moist Neck: supple, jvd (9 cm water) Respiratory: diminished breath sounds Cardiovascular: regular rate and rhythm Gastrointestinal: soft, non-tender Musculoskeletal: muscle tone (NORMAL) Extremities: edema (NONE) Labs Result Diagram: 01/24/19 0457 01/24/19 0457 Results 24hrs Laboratory Tests Test 01/24/19 04:57 01/24/19 08:50 White Blood Count 11.3 H Red Blood Count 4.34 L Hemoglobin 12.6 L Hematocrit 38.5 L Mean Corpuscular Volume 88.7 Mean Corpuscular Hemoglobin 29.0 Mean Corpuscular Hemoglobin Concent 32.7 Red Cell Distribution Width 13.9 Platelet Count 294 Mean Platelet Volume 10.6 H Immature Granulocytes % 0.500 H Neutrophils % 83.8 H Lymphocytes % 9.1 L Monocytes % 6.5 Eosinophils % 0.0 Basophils % 0.1 Nucleated Red Blood Cells % 0.0 Immature Granulocytes # 0.060 H Neutrophils # 9.5 H Lymphocytes # 1.0 Monocytes # 0.7 Eosinophils # 0.0 Basophils # 0.0 Nucleated Red Blood Cells # 0.0 Sodium Level 141 Potassium Level 4.6 Chloride Level 104 Carbon Dioxide Level 25 Anion Gap 12 Blood Urea Nitrogen 94 H Creatinine 3.63 H Est Glomerular Filtrat Rate mL/min Glucose Level 102 # Calcium Level 8.6 Phosphorus Level 5.0 H Magnesium Level 2.1 Urine Color YELLOW Urine Clarity CLEAR Urine pH 5.0 Urine Specific [place] 1.014 Urine Ketones NEGATIVE Urine Nitrite NEGATIVE Urine Bilirubin NEGATIVE Urine Urobilinogen NEGATIVE Urine Leukocyte Esterase NEGATIVE Urine Hemoglobin NEGATIVE Urine Random Creatinine 70.69 Urine Random Sodium 58 Urine Glucose NEGATIVE Urine Total Protein 19.0 H Medications Medications Current Medications IV Flush (NS 3 ml) 3 ml PER PROTOCOL IV ; Start 01/20/19 at 11:00 Ondansetron HCl (Zofran Inj) 4 mg Q6H PRN IV NAUSEA/VOMITING; Start 01/20/19 at 11:00 Acetaminophen (Tylenol Tab) 650 mg Q6H PRN PO .PAIN 1-3 OR TEMP; Start 01/20/19 at 11:00 Amlodipine Besylate (Norvasc) 10 mg DAILY PO Last administered on 01/24/19 08:57; Admin Dose 10 MG; Start 01/21/19 at 09:00 Aspirin (Halfprin) 81 mg DAILY PO Last administered on 01/24/19 09:03; Admin Dose 81 MG; Start 01/21/19 at 09:00 Cyclosporine (Restasis) 1 drop Q12 BOTH EYES Last administered on 01/24/19 08:57; Admin Dose 1 DROP; Start 01/20/19 at 21:00 Donepezil HCl (Aricept) 5 mg DAILY PO Last administered on 01/24/19at 08:56; Admin Dose 5 MG; Start 01/21/19 at 09:00 Metoprolol Succinate (Toprol Xl) 50 mg DAILY PO Last administered on 01/24/19 08:57; Admin Dose 50 MG; Start 01/21/19 at 09:00 Pentoxifylline (Trental) 400 mg WITH MEALS PO Last administered on 01/24/19 13:05; Admin Dose 400 MG; Start 01/20/19 at 18:00 Ranolazine (Ranexa) 500 mg Q12 PO Last administered on 01/24/19 08:56; Admin Dose 500 MG; Start 01/20/19 at 21:00 Tamsulosin HCl (Flomax) 0.4 mg DAILY PO Last administered on 01/24/19 08:57; Admin Dose 0.4 MG; Start 01/21/19 at 09:00 Albuterol/ Ipratropium (Duoneb) 3 ml Q2H RESP THERAPY PRN HHN SHORTNESS OF BREATH Last administered on 01/21/19 22:56; Admin Dose 3 ML; Start 01/20/19 at 13:00 Arformoterol Tartrate (Brovana (Neb)) 2 ml BID NEB Last administered on 01/24/19 09:12; Admin Dose 2 ML; Start 01/20/19 at 21:00 Hydralazine HCl (Apresoline) 10 mg Q6H PRN IV SBP>160; Start 01/20/19 at 12:30 Pantoprazole (Protonix Tab) 40 mg DAILY@06 PO Last administered on 01/24/19 05:54; Admin Dose 40 MG; Start 01/22/19 at 06:00 Levalbuterol (Xopenex Neb) 1.25 mg Q4H RESP THERAPY HHN Last administered on 01/24/19 14:11; Admin Dose 1.25 MG; Start 01/21/19 at 23:30 Ipratropium [place] (Atrovent 0.02% (Neb)) 0.5 mg Q4H RESP THERAPY HHN Last administered on 01/24/19 14:11; Admin Dose 0.5 MG; Start 01/22/19 at 01:00 Sodium Chloride 1,000 ml @ 50 mls/hr Q20H IV Last administered on 5/31/19at 10:31; Admin Dose 50 MLS/HR; Start 01/24/19 at 10:30; Stop 01/26/19 at 02:29 ELISABET MARCANO January 24, 2019 14:46
[2019-01-25] VITALS (11 sets, daily range): BP systolic 135–153; BP diastolic 76–83; PULSE 82–100; RESP 18–21
[2019-01-25] MEDS: LEVALBUTEROL (NEB) 1.25 MG/0.5 ML AMP HHN SCH ×6 (01:15→20:14)
[2019-01-25] MEDS: IPRATROPIUM (NEB) 0.5 MG/2.5 ML AMP HHN SCH ×6 (01:15→20:14)
[2019-01-25] MEDS: SOD CHLORIDE 0.9% 1,000 ML IV SCH (06:01)
[2019-01-25] MEDS: PANTOPRAZOLE (EC) 40 MG TAB PO SCH (06:01)
[2019-01-25] MEDS: PENTOXIFYLLINE (SR) 400 MG TAB PO SCH ×4 (08:16→17:23)
[2019-01-25] MEDS: DONEPEZIL 5 MG TAB PO SCH ×2 (08:16→09:00)
[2019-01-25] MEDS: ASPIRIN (EC) 81 MG TAB PO SCH ×2 (08:16→09:00)
[2019-01-25] MEDS: TAMSULOSIN (SR) 0.4 MG CAP PO SCH ×2 (08:16→09:00)
[2019-01-25] MEDS: CYCLOSPORINE 0.05% OPH DROPERETTE BOTH EYES SCH ×3 (08:16→20:59)
[2019-01-25] MEDS: RANOLAZINE (SR) 500 MG TAB PO SCH ×3 (08:16→20:59)
[2019-01-25] MEDS: AMLODIPINE 10 MG TAB PO SCH ×2 (08:17→09:00)
[2019-01-25] MEDS: METOPROLOL (XL) 50 MG TAB PO SCH ×2 (08:17→09:00)
[2019-01-25] MEDS: ARFORMOTEROL TARTRATE 15MCG/2 ML AMP NEB SCH ×2 (08:23→20:14)
--- NOTE | 2019-01-25 10:59 | CONS ---
Consult Date/Type/Reason Admit Date/Time January 20, 2019 at 09:01 Initial Consult Date Requesting Provider: NAIN SHERMAN Date/Time of Note DATE: 01/25/19 TIME: 10:57 Subjective NO acute events - lasix held, Cr still high - no CP now ROS: No fever, no chills, no nausea, no vomiting, no diarrhea/constipation No recent weight changes No chest pain, no PND, no orthopnea - improved SOB No dizziness, blurred vision No thirst, no heat or cold intolerance Objective Vitals Vital Signs Date Temp Pulse Resp B/P (MAP) Pulse Ox O2 O2 Flow FiO2 Time Delivery Rate 01/25/19 95 16 93 Nasal 4.0 08:20 Cannula 01/25/19 97.5 138/83 07:21 (101) 01/24/19 30 17:32 Intake and Output 01/24/19 01/24/19 01/25/19 1515:00 23:00 07:00 IntakeIntake Total 1120 ml OutputOutput Total 900 ml BalanceBalance 220 ml Exam General: WN/WD/NAD, AOx 3 HEENT: Unicetric/atraumatic/EOMI (follows commands) NECK: JVD elevated, no thyromegaly Lymph: no lymphadenopathy HEART: regular with no S3, II/ systolic murmur at apex, PMI L LUNGS: Coarse sounds ABD: soft, NT, ND, +BS : Intact Neuro: non focal SKIN: chronic changes EXT: trace edema Results/Medications Result Diagram: 01/25/19 0533 01/25/19 0533 Results 24 hrs Laboratory Tests Test 01/25/19 05:33 White Blood Count 9.1 Red Blood Count 4.46 L Hemoglobin 12.8 L Hematocrit 39.6 L Mean Corpuscular Volume 88.8 Mean Corpuscular Hemoglobin 28.7 L Mean Corpuscular Hemoglobin Concent 32.3 Red Cell Distribution Width 13.9 Platelet Count 287 Mean Platelet Volume 10.6 H Immature Granulocytes % 0.300 Neutrophils % 75.5 Lymphocytes % 15.2 Monocytes % 8.6 Eosinophils % 0.2 Basophils % 0.2 Nucleated Red Blood Cells % 0.0 Immature Granulocytes # 0.030 Neutrophils # 6.9 Lymphocytes # 1.4 Monocytes # 0.8 Eosinophils # 0.0 Basophils # 0.0 Nucleated Red Blood Cells # 0.0 Sodium Level 141 Potassium Level 4.3 Chloride Level 108 Carbon Dioxide Level 24 Anion Gap 9 Blood Urea Nitrogen 82 H Creatinine 2.85 H Est Glomerular Filtrat Rate mL/min Glucose Level 96 Calcium Level 8.6 Phosphorus Level 4.5 Magnesium Level 2.1 Home Meds Reported Medications Naproxen* (Naproxen*) 500 Mg Tablet, 500 MG PO BID PRN for PAIN, TAB 01/20/19 Diclofenac Sodium* (Voltaren* Gel) 1% -100 Gm Gel, 2 GM TOP QID, #1 TUB 01/20/19 Budesonide-Formoterol Fumarate* (Symbicort*) 160-4.5 Hfa.aer.ad, 2 PUFF INHALATION BID, #1 EACH 01/20/19 Cyclosporine (RESTASIS) 1 Each Droperette, 1 DROP BOTH EYES Q12, #1 BOX 01/20/19 Ranolazine* (Ranexa*) 500 Mg Tab.sr.12h, 500 MG PO Q12, TAB 01/20/19 Tamsulosin Hcl* (Flomax*) 0.4 Mg Cap.er.24h, 0.4 MG PO DAILY, CAP 01/20/19 Linaclotide (LINZESS) 145 Mcg Capsule, 145 MCG PO DAILY, #30 CAP 01/20/19 Nebivolol Hcl* (Bystolic*) 10 Mg Tablet, 10 MG PO DAILY, #30 TAB 01/20/19 Losartan Potassium* (Losartan Potassium*) 100 Mg Tablet, 100 MG PO DAILY, TAB 01/20/19 Omeprazole* (Omeprazole*) 20 Mg Capsule.dr, 20 MG PO DAILY, #30 CAP 01/20/19 Donepezil* (Aricept*) 5 Mg Tablet, 5 MG PO DAILY, TAB 01/20/19 Meloxicam* (Meloxicam*) 7.5 Mg Tablet, 7.5 MG PO DAILY, #30 TAB 01/20/19 Aspirin (Low Dose Aspirin) 81 Mg Tablet.dr, 81 MG PO DAILY, #30 TAB 01/20/19 Amlodipine Besylate* (Amlodipine Besylate*) 10 Mg Tablet, 10 MG PO DAILY, #30 TAB 01/20/19 Metoprolol Succinate* (Toprol XL*) 50 Mg Tab.er.24h, 50 MG PO DAILY, #30 TAB 01/20/19 Pentoxifylline* (Pentoxifylline*) 400 Mg Tablet.sa, 400 MG PO WITH MEALS, TAB 01/20/19 Discontinued Reported Medications Omeprazole* (Omeprazole*) 20 Mg Capsule.dr, 20 MG PO DAILY, #30 CAP 01/30/17 Meloxicam* (Meloxicam*) 7.5 Mg Tablet, 7.5 MG PO DAILY, #30 TAB 01/30/17 Metoprolol Succinate* (Toprol XL*) 50 Mg Tab.er.24h, 50 MG PO DAILY, #30 TAB 01/30/17 Pentoxifylline* (Pentoxifylline*) 400 Mg Tablet.sa, 400 MG PO TID, TAB 01/30/17 Olmesartan-Hydrochlorothiazide (Benicar HCT) 20-12.5 Mg Tablet, 2 TAB PO DAILY, #30 TAB 01/30/17 Discontinued Scripts Acetaminophen* (Tylophen*) 500 Mg Capsule, 1 CAP PO Q6H PRN for PAIN AND OR ELEVATED TEMP, #30 CAP Prov:MARIBEL DUVALL PA-C 03/08/18 Tramadol HCl (Tramadol HCl) 50 Mg Tablet, 50 MG PO Q6 PRN for PAIN, #20 TAB Prov:MARIBEL DUVALL PA-C 03/08/18 Meloxicam* (Meloxicam*) 7.5 Mg Tablet, 7.5 MG PO DAILY, #30 TAB Prov:CAPRICE LIVINGSTON PA-C 02/03/18 Medications Current Medications IV Flush (NS 3 ml) 3 ml PER PROTOCOL IV ; Start 01/20/19 at 11:00 Ondansetron HCl (Zofran Inj) 4 mg Q6H PRN IV NAUSEA/VOMITING; Start 01/20/19 at 11:00 Acetaminophen (Tylenol Tab) 650 mg Q6H PRN PO .PAIN 1-3 OR TEMP; Start 01/20/19 at 11:00 Amlodipine Besylate (Norvasc) 10 mg DAILY PO Last administered on 01/24/19at 08:57; Admin Dose 10 MG; Start 01/21/19 at 09:00 Aspirin (Halfprin) 81 mg DAILY PO Last administered on 01/24/19at 09:03; Admin Dose 81 MG; Start 01/21/19 at 09:00 Cyclosporine (Restasis) 1 drop Q12 BOTH EYES Last administered on 01/25/19 09:16; Admin Dose 1 DROP; Start 01/20/19 at 21:00 Donepezil HCl (Aricept) 5 mg DAILY PO Last administered on 01/24/19 08:56; Admin Dose 5 MG; Start 01/21/19 at 09:00 Metoprolol Succinate (Toprol Xl) 50 mg DAILY PO Last administered on 01/24/19 08:57; Admin Dose 50 MG; Start 01/21/19 at 09:00 Pentoxifylline (Trental) 400 mg WITH MEALS PO Last administered on 01/24/19 18:10; Admin Dose 400 MG; Start 01/20/19 at 18:00 Ranolazine (Ranexa) 500 mg Q12 PO Last administered on 01/24/19 20:40; Admin Dose 500 MG; Start 01/20/19 at 21:00 Tamsulosin HCl (Flomax) 0.4 mg DAILY PO Last administered on 01/24/19 08:57; Admin Dose 0.4 MG; Start 01/21/19 at 09:00 Albuterol/ Ipratropium (Duoneb) 3 ml Q2H RESP THERAPY PRN HHN SHORTNESS OF BREATH Last administered on 01/21/19 22:56; Admin Dose 3 ML; Start 01/20/19 at 13:00 Arformoterol Tartrate (Brovana (Neb)) 2 ml BID NEB Last administered on 01/25/19 08:23; Admin Dose 2 ML; Start 01/20/19 at 21:00 Hydralazine HCl (Apresoline) 10 mg Q6H PRN IV SBP>160; Start 01/20/19 at 12:30 Pantoprazole (Protonix Tab) 40 mg DAILY@06 PO Last administered on 01/25/19 06:01; Admin Dose 40 MG; Start 01/22/19 at 06:00 Levalbuterol (Xopenex Neb) 1.25 mg Q4H RESP THERAPY HHN Last administered on 01/25/19 08:23; Admin Dose 1.25 MG; Start 01/21/19 at 23:30 Ipratropium [place] (Atrovent 0.02% (Neb)) 0.5 mg Q4H RESP THERAPY HHN Last administered on 6/1/19at 08:23; Admin Dose 0.5 MG; Start 01/22/19 at 01:00 Sodium Chloride 1,000 ml @ 50 mls/hr Q20H IV Last administered on 01/25/19at 06:01; Admin Dose 50 MLS/HR; Start 01/24/19 at 10:30; Stop 01/26/19 at 02:29 Assessment/Plan Hospital Course (Demo Recall) 1. Shortness of breath, assess congestive heart failure - does not appear to be in CHF clinically, will keep euvolemic now. Lasix held with increased Cr 2. Increased BNP, assess for congestive heart failure - con't to monitor - be tter now. Treated. 3. Probable chronic obstructive pulmonary disease - on Rx, feels better todya - con't bronchodilators. 4. Possible pneumonia/upper respiratory infection - beny nti-Bx, no fever now. 5. Renal failure - CR 2.5 - avoid nephrotoxic meds. Stable urine output. 6. Peripheral arterial disease- on meds now. 7. Hypertension - con;t Rx. 8. Remote tobacco intake RICK PEREZ MD Jan 25, 2019 10:59
--- NOTE | 2019-01-25 11:52 | PN ---
Date/Time of Note Date/Time of Note DATE: 01/25/19 TIME: 11:50 Assessment/Plan VTE Prophylaxis Risk score (from Nsg)>0 risk: 4 SCD applied (from Nsg): Yes Pharmacological prophylaxis: heparin Lines/Catheters IV C[facility]ter Type (from [facility]): Peripheral IV Urinary Cath still in place: No Assessment/Plan Hospital Course SUBJECTIVE: Remains on 4L O2 via NC. Patient refused most of his AM medications today. OBJECTIVE: Physical Exam General: Adequately build 83 year-old male lying in bed in no apparent distress. HEENT: Normocephalic, atraumatic. Eyes: Anicteric sclerae, conjunctivae clear. ENT: Nasal septum midline, oral mucosa moist. Neck supple. Respiratory: Bilaterally diminished breath sounds. Use of accessory muscles of respiration. B/L rales. Cardiovascular: S1, S2 heard. Regular rate and rhythm. Abdomen: Soft, nontender, and nondistended. Bowel sounds positive in all 4 quadrants. Genitourinary: Deferred. Extremities: No cyanosis, no clubbing, no edema. Left lower extremity Cam boot on. Neurologic: Cranial nerves II through XII grossly intact. The patient is awake, alert, and oriented. Skin: Normal skin turgor. No skin rashes. Labs & Vitals per chart ASSESSMENT & PLAN 83-year-old male with comorbidities including hypertension, CKD, peripheral artery disease, and COPD who came to the emergency room with chief complaint of dyspnea with evidence of underlying hypoxia and pulmonary infiltrates, who was admitted to inpatient setting for further treatment and evaluation. 1. Acute respiratory failure. -Hypoxic -Etiology unclear. May be multifactorial in origin including underlying bilateral pleural effusions. -Continue supplemental oxygen. -Continue inhaled bronchodilators. -Continue diuresis. -Pulmonology following. 2. Bilateral pleural effusions. -Continue diuresis while carefully monitoring renal function. 3. CHF exacerbation, acute on chronic systolic dysfunction. -Continue diuretic therapy while carefully monitoring renal function. -Cardiology following. 4. Peripheral artery disease. -Continue aspirin and pentoxifylline. 5. Hypertension. -Continue antihypertensives. -Hold ARBs because of worsening renal function. 6. Acute on chronic kidney disease. -Hold nephrotoxic medications. -Monitor BUN and creatinine closely. -Nephrology following. 7. COPD. -Continue the patient on inhaled bronchodilators; JESUS and LABA. -Status post IV steroids. 8. Fluids, electrolytes, and nutrition. -Low-cholesterol diet. 9. DVT prophylaxis. -Subcutaneous heparin. 10. Plan. -Continue diuresis while clinically monitoring renal function. -Await clinical improvement before discharging the patient home. Called the patient's son-in-law Aubrey on 01/25/2019, and explained the patient's current condition. The patient was seen in collaboration with Dr. Campuzano. Result Diagram: 01/25/1933 01/25/1933 Results 24hrs Laboratory Tests Test 01/25/19 05:33 White Blood Count 9.1 Red Blood Count 4.46 L Hemoglobin 12.8 L Hematocrit 39.6 L Mean Corpuscular Volume 88.8 Mean Corpuscular Hemoglobin 28.7 L Mean Corpuscular Hemoglobin Concent 32.3 Red Cell Distribution Width 13.9 Platelet Count 287 Mean Platelet Volume 10.6 H Immature Granulocytes % 0.300 Neutrophils % 75.5 Lymphocytes % 15.2 Monocytes % 8.6 Eosinophils % 0.2 Basophils % 0.2 Nucleated Red Blood Cells % 0.0 Immature Granulocytes # 0.030 Neutrophils # 6.9 Lymphocytes # 1.4 Monocytes # 0.8 Eosinophils # 0.0 Basophils # 0.0 Nucleated Red Blood Cells # 0.0 Sodium Level 141 Potassium Level 4.3 Chloride Level 108 Carbon Dioxide Level 24 Anion Gap 9 Blood Urea Nitrogen 82 H Creatinine 2.85 H Est Glomerular Filtrat Rate mL/min Glucose Level 96 Calcium Level 8.6 Phosphorus Level 4.5 Magnesium Level 2.1 Exam/Review of Systems Exam Vitals Vital Signs Date Temp Pulse Resp B/P (MAP) Pulse Ox O2 O2 Flow FiO2 Time Delivery Rate 01/25/19 97.9 90 18 139/76 90 11:05 (97) 01/25/19 Nasal 4.0 08:20 Cannula 01/24/19 30 17:32 Intake and Output 01/24/19 01/24/19 01/25/19 1515:00 23:00 07:00 IntakeIntake Total 1120 ml OutputOutput Total 900 ml BalanceBalance 220 ml Results Results 24hrs Laboratory Tests Test 01/25/19 05:33 White Blood Count 9.1 Red Blood Count 4.46 L Hemoglobin 12.8 L Hematocrit 39.6 L Mean Corpuscular Volume 88.8 Mean Corpuscular Hemoglobin 28.7 L Mean Corpuscular Hemoglobin Concent 32.3 Red Cell Distribution Width 13.9 Platelet Count 287 Mean Platelet Volume 10.6 H Immature Granulocytes % 0.300 Neutrophils % 75.5 Lymphocytes % 15.2 Monocytes % 8.6 Eosinophils % 0.2 Basophils % 0.2 Nucleated Red Blood Cells % 0.0 Immature Granulocytes # 0.030 Neutrophils # 6.9 Lymphocytes # 1.4 Monocytes # 0.8 Eosinophils # 0.0 Basophils # 0.0 Nucleated Red Blood Cells # 0.0 Sodium Level 141 Potassium Level 4.3 Chloride Level 108 Carbon Dioxide Level 24 Anion Gap 9 Blood Urea Nitrogen 82 H Creatinine 2.85 H Est Glomerular Filtrat Rate mL/min Glucose Level 96 Calcium Level 8.6 Phosphorus Level 4.5 Magnesium Level 2.1 Medications Medication Current Medications IV Flush (NS 3 ml) 3 ml PER PROTOCOL IV ; Start 01/20/19 at 11:00 Ondansetron HCl (Zofran Inj) 4 mg Q6H PRN IV NAUSEA/VOMITING; Start 01/20/19 at 11:00 Acetaminophen (Tylenol Tab) 650 mg Q6H PRN PO .PAIN 1-3 OR TEMP; Start 01/20/19 at 11:00 Amlodipine Besylate (Norvasc) 10 mg DAILY PO Last administered on 01/24/19 08:57; Admin Dose 10 MG; Start 01/21/19 at 09:00 Aspirin (Halfprin) 81 mg DAILY PO Last administered on 01/24/19 09:03; Admin Dose 81 MG; Start 01/21/19 at 09:00 Cyclosporine (Restasis) 1 drop Q12 BOTH EYES Last administered on 01/25/19 09:16; Admin Dose 1 DROP; Start 01/20/19 at 21:00 Donepezil HCl (Aricept) 5 mg DAILY PO Last administered on 01/24/19 08:56; Admin Dose 5 MG; Start 01/21/19 at 09:00 Metoprolol Succinate (Toprol Xl) 50 mg DAILY PO Last administered on 01/24/19 08:57; Admin Dose 50 MG; Start 01/21/19 at 09:00 Pentoxifylline (Trental) 400 mg WITH MEALS PO Last administered on 01/24/19at 18:10; Admin Dose 400 MG; Start 01/20/19 at 18:00 Ranolazine (Ranexa) 500 mg Q12 PO Last administered on 01/24/19 20:40; Admin Dose 500 MG; Start 01/20/19 at 21:00 Tamsulosin HCl (Flomax) 0.4 mg DAILY PO Last administered on 01/24/19 08:57; Admin Dose 0.4 MG; Start 01/21/19 at 09:00 Albuterol/ Ipratropium (Duoneb) 3 ml Q2H RESP THERAPY PRN HHN SHORTNESS OF BREATH Last administered on 01/21/19 22:56; Admin Dose 3 ML; Start 01/20/19 at 13:00 Arformoterol Tartrate (Brovana (Neb)) 2 ml BID NEB Last administered on 01/25/19 08:23; Admin Dose 2 ML; Start 01/20/19 at 21:00 Hydralazine HCl (Apresoline) 10 mg Q6H PRN IV SBP>160; Start 01/20/19 at 12:30 Pantoprazole (Protonix Tab) 40 mg DAILY@06 PO Last administered on 01/25/19 06:01; Admin Dose 40 MG; Start 01/22/19 at 06:00 Levalbuterol (Xopenex Neb) 1.25 mg Q4H RESP THERAPY HHN Last administered on 01/25/19 08:23; Admin Dose 1.25 MG; Start 01/21/19 at 23:30 Ipratropium [place] (Atrovent 0.02% (Neb)) 0.5 mg Q4H RESP THERAPY HHN Last administered on 01/25/19 08:23; Admin Dose 0.5 MG; Start 01/22/19 at 01:00 Sodium Chloride 1,000 ml @ 50 mls/hr Q20H IV Last administered on 01/25/19 06:01; Admin Dose 50 MLS/HR; Start 01/24/19 at 10:30; Stop 01/26/19 at 02:29 PARAS MCDONALD NP Jan 25, 2019 11:52
--- NOTE | 2019-01-25 12:41 | CONS ---
Assessment/Plan Assessment/Plan Hospital Course (Demo Recall) 1. Nonoliguric acute kidney injury on top of chronic kidney disease stage III with previous baseline creatinine of 1.4 to 1.5 mg/dL. Etiology of acute kidney injury is secondary to hemodynamics, diuretic therapy. The patient's urinalysis was reviewed. No evidence of active sediment. on ivf. will stop as pt is euvolemic. renal function improved. Continue to hold diuretic therapy. We would otherwise continue supportive care and renally dose all medications. Please avoiding KATHY and ARBs at this time. 2. Anemia. Monitor hemoglobin and hematocrit levels. 3. Mineral bone disorder. Monitor calcium and phosphorus levels. 4. Acute hypoxic respiratory failure secondary to chronic obstructive pulmonary disease exacerbation, pneumonia. Continue current medical management. Continue supplemental oxygen, nebulizer and antibiotic therapy. Follow up with pulmonary. 5. History of diastolic heart failure. The patient is currently compensated on exam. We will continue to hold diuretic therapy. We will give the patient gentle fluid challenge. 6. Peripheral arterial disease. Continue medical management. 7. Hypertension. Continue current blood pressure regimen. 8. History of tobacco. Consultation Date/Type/Reason Admit Date/Time January 20, 2019 at 09:01 Initial Consult Date 01/22/19 Requesting Provider: NAIN SHERMAN Date/Time of Note DATE: 01/25/19 TIME: 12:40 24 HR Interval Summary Free Text/Dictation started on ivf denies shortness of breath or n/v adequate urine output d/w rn gen nad cv rrr pulm ctab abd soft, nd, nt +bs ext: no edema Exam/Review of Systems Exam Vitals Vital Signs Date Temp Pulse Resp B/P (MAP) Pulse Ox O2 O2 Flow FiO2 Time Delivery Rate 01/25/19 100 12:23 01/25/19 18 93 Nasal 4.0 12:20 Cannula 01/25/19 97.9 139/76 11:05 (97) 01/24/19 30 17:32 Intake and Output 01/24/19 01/24/19 01/25/19 1515:00 23:00 07:00 IntakeIntake Total 1120 ml OutputOutput Total 900 ml BalanceBalance 220 ml Results Result Diagram: 01/25/19 0533 01/25/19 0533 Results 24hrs Laboratory Tests Test 01/25/19 05:33 White Blood Count 9.1 Red Blood Count 4.46 L Hemoglobin 12.8 L Hematocrit 39.6 L Mean Corpuscular Volume 88.8 Mean Corpuscular Hemoglobin 28.7 L Mean Corpuscular Hemoglobin Concent 32.3 Red Cell Distribution Width 13.9 Platelet Count 287 Mean Platelet Volume 10.6 H Immature Granulocytes % 0.300 Neutrophils % 75.5 Lymphocytes % 15.2 Monocytes % 8.6 Eosinophils % 0.2 Basophils % 0.2 Nucleated Red Blood Cells % 0.0 Immature Granulocytes # 0.030 Neutrophils # 6.9 Lymphocytes # 1.4 Monocytes # 0.8 Eosinophils # 0.0 Basophils # 0.0 Nucleated Red Blood Cells # 0.0 Sodium Level 141 Potassium Level 4.3 Chloride Level 108 Carbon Dioxide Level 24 Anion Gap 9 Blood Urea Nitrogen 82 H Creatinine 2.85 H Est Glomerular Filtrat Rate mL/min Glucose Level 96 Calcium Level 8.6 Phosphorus Level 4.5 Magnesium Level 2.1 Medications Medication Current Medications IV Flush (NS 3 ml) 3 ml PER PROTOCOL IV ; Start 01/20/19 at 11:00 Ondansetron HCl (Zofran Inj) 4 mg Q6H PRN IV NAUSEA/VOMITING; Start 01/20/19 at 11:00 Acetaminophen (Tylenol Tab) 650 mg Q6H PRN PO .PAIN 1-3 OR TEMP; Start 01/20/19 at 11:00 Amlodipine Besylate (Norvasc) 10 mg DAILY PO Last administered on 01/24/19at 08:57; Admin Dose 10 MG; Start 01/21/19 at 09:00 Aspirin (Halfprin) 81 mg DAILY PO Last administered on 01/24/19at 09:03; Admin Dose 81 MG; Start 01/21/19 at 09:00 Cyclosporine (Restasis) 1 drop Q12 BOTH EYES Last administered on 01/25/19 09:16; Admin Dose 1 DROP; Start 01/20/19 at 21:00 Donepezil HCl (Aricept) 5 mg DAILY PO Last administered on 01/24/19 08:56; Ad min Dose 5 MG; Start 01/21/19 at 09:00 Metoprolol Succinate (Toprol Xl) 50 mg DAILY PO Last administered on 01/24/19at 08:57; Admin Dose 50 MG; Start 01/21/19 at 09:00 Pentoxifylline (Trental) 400 mg WITH MEALS PO Last administered on 01/24/19 18:10; Admin Dose 400 MG; Start 01/20/19 at 18:00 Ranolazine (Ranexa) 500 mg Q12 PO Last administered on 01/24/19 20:40; Admin Dose 500 MG; Start 01/20/19 at 21:00 Tamsulosin HCl (Flomax) 0.4 mg DAILY PO Last administered on 01/24/19 08:57; Admin Dose 0.4 MG; Start 01/21/19 at 09:00 Albuterol/ Ipratropium (Duoneb) 3 ml Q2H RESP THERAPY PRN HHN SHORTNESS OF BREATH Last administered on 01/21/19 22:56; Admin Dose 3 ML; Start 01/20/19 at 13:00 Arformoterol Tartrate (Brovana (Neb)) 2 ml BID NEB Last administered on 01/25/19 08:23; Admin Dose 2 ML; Start 01/20/19 at 21:00 Hydralazine HCl (Apresoline) 10 mg Q6H PRN IV SBP>160; Start 01/20/19 at 12:30 Pantoprazole (Protonix Tab) 40 mg DAILY@06 PO Last administered on 01/25/19 06:01; Admin Dose 40 MG; Start 01/22/19 at 06:00 Levalbuterol (Xopenex Neb) 1.25 mg Q4H RESP THERAPY HHN Last administered on 01/25/19 12:20; Admin Dose 1.25 MG; Start 01/21/19 at 23:30 Ipratropium [place] (Atrovent 0.02% (Neb)) 0.5 mg Q4H RESP THERAPY HHN Last administered on 01/25/19 12:20; Admin Dose 0.5 MG; Start 01/22/19 at 01:00 Sodium Chloride 1,000 ml @ 50 mls/hr Q20H IV Last administered on 01/25/19 06:01; Admin Dose 50 MLS/HR; Start 01/24/19 at 10:30; Stop 01/26/19 at 02:29 JAMAAL CAMPBELL MD Jan 25, 2019 12:41
--- NOTE | 2019-01-25 16:06 | CONS ---
Consult Date/Type/Reason Admit Date/Time January 20, 2019 at 09:01 Initial Consult Date 01/22/19 Type of Consultation: Pulm Requesting Provider: NAIN SHERMAN Date/Time of Note DATE: 01/25/19 TIME: 16:04 Subjective Remains on 4 L O2 via NC. Objective Vitals Vital Signs Date Temp Pulse Resp B/P (MAP) Pulse Ox O2 O2 Flow FiO2 Time Delivery Rate 01/25/19 98.2 89 18 139/82 94 15:10 (101) 01/25/19 Nasal 4.0 12:20 Cannula 01/24/19 30 17:32 Intake and Output 01/24/19 01/24/19 01/25/19 1515:00 23:00 07:00 IntakeIntake Total 1120 ml OutputOutput Total 900 ml BalanceBalance 220 ml Exam GENERAL: Elderly [place] gentleman comfortable at rest VITAL SIGNS: per chart NECK: Supple. No JVD or lymphadenopathy. CARDIAC EXAM: S1, S2. No added sounds or murmurs. CHEST: Bibasilar rales ABDOMEN: Soft, nontender. No guarding or rebound. EXTREMITIES: No cyanosis, clubbing or edema. NEUROLOGIC: Generalized weakness. No focal deficits. Results/Medications Result Diagram: 01/25/19 0533 01/25/19 0533 Results 24 hrs Laboratory Tests Test 01/25/19 05:33 White Blood Count 9.1 Red Blood Count 4.46 L Hemoglobin 12.8 L Hematocrit 39.6 L Mean Corpuscular Volume 88.8 Mean Corpuscular Hemoglobin 28.7 L Mean Corpuscular Hemoglobin Concent 32.3 Red Cell Distribution Width 13.9 Platelet Count 287 Mean Platelet Volume 10.6 H Immature Granulocytes % 0.300 Neutrophils % 75.5 Lymphocytes % 15.2 Monocytes % 8.6 Eosinophils % 0.2 Basophils % 0.2 Nucleated Red Blood Cells % 0.0 Immature Granulocytes # 0.030 Neutrophils # 6.9 Lymphocytes # 1.4 Monocytes # 0.8 Eosinophils # 0.0 Basophils # 0.0 Nucleated Red Blood Cells # 0.0 Sodium Level 141 Potassium Level 4.3 Chloride Level 108 Carbon Dioxide Level 24 Anion Gap 9 Blood Urea Nitrogen 82 H Creatinine 2.85 H Est Glomerular Filtrat Rate mL/min Glucose Level 96 Calcium Level 8.6 Phosphorus Level 4.5 Magnesium Level 2.1 Home Meds Reported Medications Naproxen* (Naproxen*) 500 Mg Tablet, 500 MG PO BID PRN for PAIN, TAB 01/20/19 Diclofenac Sodium* (Voltaren* Gel) 1% -100 Gm Gel, 2 GM TOP QID, #1 TUB 01/20/19 Budesonide-Formoterol Fumarate* (Symbicort*) 160-4.5 Hfa.aer.ad, 2 PUFF INHALATION BID, #1 EACH 01/20/19 Cyclosporine (RESTASIS) 1 Each Droperette, 1 DROP BOTH EYES Q12, #1 BOX 01/20/19 Ranolazine* (Ranexa*) 500 Mg Tab.sr.12h, 500 MG PO Q12, TAB 01/20/19 Tamsulosin Hcl* (Flomax*) 0.4 Mg Cap.er.24h, 0.4 MG PO DAILY, CAP 01/20/19 Linaclotide (LINZESS) 145 Mcg Capsule, 145 MCG PO DAILY, #30 CAP 01/20/19 Nebivolol Hcl* (Bystolic*) 10 Mg Tablet, 10 MG PO DAILY, #30 TAB 01/20/19 Losartan Potassium* (Losartan Potassium*) 100 Mg Tablet, 100 MG PO DAILY, TAB 01/20/19 Omeprazole* (Omeprazole*) 20 Mg Capsule.dr, 20 MG PO DAILY, #30 CAP 01/20/19 Donepezil* (Aricept*) 5 Mg Tablet, 5 MG PO DAILY, TAB 01/20/19 Meloxicam* (Meloxicam*) 7.5 Mg Tablet, 7.5 MG PO DAILY, #30 TAB 01/20/19 Aspirin (Low Dose Aspirin) 81 Mg Tablet.dr, 81 MG PO DAILY, #30 TAB 01/20/19 Amlodipine Besylate* (Amlodipine Besylate*) 10 Mg Tablet, 10 MG PO DAILY, #30 TAB 01/20/19 Metoprolol Succinate* (Toprol XL*) 50 Mg Tab.er.24h, 50 MG PO DAILY, #30 TAB 01/20/19 Pentoxifylline* (Pentoxifylline*) 400 Mg Tablet.sa, 400 MG PO WITH MEALS, TAB 01/20/19 Discontinued Reported Medications Omeprazole* (Omeprazole*) 20 Mg Capsule.dr, 20 MG PO DAILY, #30 CAP 01/30/17 Meloxicam* (Meloxicam*) 7.5 Mg Tablet, 7.5 MG PO DAILY, #30 TAB 01/30/17 Metoprolol Succinate* (Toprol XL*) 50 Mg Tab.er.24h, 50 MG PO DAILY, #30 TAB 01/30/17 Pentoxifylline* (Pentoxifylline*) 400 Mg Tablet.sa, 400 MG PO TID, TAB 01/30/17 Olmesartan-Hydrochlorothiazide (Benicar HCT) 20-12.5 Mg Tablet, 2 TAB PO DAILY, #30 TAB 01/30/17 Discontinued Scripts Acetaminophen* (Tylophen*) 500 Mg Capsule, 1 CAP PO Q6H PRN for PAIN AND OR ELEVATED TEMP, #30 CAP Prov:MARIBEL DUVALL PA-C 03/08/18 Tramadol HCl (Tramadol HCl) 50 Mg Tablet, 50 MG PO Q6 PRN for PAIN, #20 TAB Prov:MARIBEL DUVALL PA-C 03/08/18 Meloxicam* (Meloxicam*) 7.5 Mg Tablet, 7.5 MG PO DAILY, #30 TAB Prov:CAPRICE LIVINGSTON PA-C 02/03/18 Medications Current Medications IV Flush (NS 3 ml) 3 ml PER PROTOCOL IV ; Start 01/20/19 at 11:00 Ondansetron HCl (Zofran Inj) 4 mg Q6H PRN IV NAUSEA/VOMITING; Start 01/20/19 at 11:00 Acetaminophen (Tylenol Tab) 650 mg Q6H PRN PO .PAIN 1-3 OR TEMP; Start 01/20/19 at 11:00 Amlodipine Besylate (Norvasc) 10 mg DAILY PO Last administered on 01/24/19at 08:57; Admin Dose 10 MG; Start 01/21/19 at 09:00 Aspirin (Halfprin) 81 mg DAILY PO Last administered on 01/24/19at 09:03; Admin Dose 81 MG; Start 01/21/19 at 09:00 Cyclosporine (Restasis) 1 drop Q12 BOTH EYES Last administered on 01/25/19at 09:16; Admin Dose 1 DROP; Start 01/20/19 at 21:00 Donepezil HCl (Aricept) 5 mg DAILY PO Last administered on 01/24/19at 08:56; Admin Dose 5 MG; Start 01/21/19 at 09:00 Metoprolol Succinate (Toprol Xl) 50 mg DAILY PO Last administered on 01/24/19 08:57; Admin Dose 50 MG; Start 01/21/19 at 09:00 Pentoxifylline (Trental) 400 mg WITH MEALS PO Last administered on 01/24/19 18:10; Admin Dose 400 MG; Start 01/20/19 at 18:00 Ranolazine (Ranexa) 500 mg Q12 PO Last administered on 01/24/19 20:40; Admin Dose 500 MG; Start 01/20/19 at 21:00 Tamsulosin HCl (Flomax) 0.4 mg DAILY PO Last administered on 01/24/19 08:57; Admin Dose 0.4 MG; Start 01/21/19 at 09:00 Albuterol/ Ipratropium (Duoneb) 3 ml Q2H RESP THERAPY PRN HHN SHORTNESS OF BREATH Last administered on 01/21/19 22:56; Admin Dose 3 ML; Start 01/20/19 at 13:00 Arformoterol Tartrate (Brovana (Neb)) 2 ml BID NEB Last administered on 01/25/19 08:23; Admin Dose 2 ML; Start 01/20/19 at 21:00 Hydralazine HCl (Apresoline) 10 mg Q6H PRN IV SBP>160; Start 01/20/19 at 12:30 Pantoprazole (Protonix Tab) 40 mg DAILY@06 PO Last administered on 01/25/19 06:01; Admin Dose 40 MG; Start 01/22/19 at 06:00 Levalbuterol (Xopenex Neb) 1.25 mg Q4H RESP THERAPY HHN Last administered on 01/25/19 12:20; Admin Dose 1.25 MG; Start 01/21/19 at 23:30 Ipratropium [place] (Atrovent 0.02% (Neb)) 0.5 mg Q4H RESP THERAPY HHN Last administered on 01/25/19 12:20; Admin Dose 0.5 MG; Start 01/22/19 at 01:00 Assessment/Plan Assessment/Plan (Daily) IMP: 1. Acute hypoxemic/hypercapnic respiratory failure likely secondary to COPD e xacerbation possible pulmonary edema 2. Chronic kidney disease 3. history of COPD 4. History of BPH RECS: 1. BD's 2. Keep I < O's 3. Titrate O2 to keep SpO2 88-92% JO AYERS MD Jan 25, 2019 16:06
[2019-01-26] VITALS (8 sets, daily range): BP systolic 143–167; BP diastolic 81–102; PULSE 84–104; RESP 18–81
[2019-01-26] MEDS: IPRATROPIUM (NEB) 0.5 MG/2.5 ML AMP HHN SCH ×6 (00:42→21:25)
[2019-01-26] MEDS: LEVALBUTEROL (NEB) 1.25 MG/0.5 ML AMP HHN SCH ×6 (00:42→21:25)
[2019-01-26] MEDS: SENNA TAB PO PRN ×2 (05:50→20:48)
[2019-01-26] MEDS: PANTOPRAZOLE (EC) 40 MG TAB PO SCH (05:50)
[2019-01-26] MEDS: ARFORMOTEROL TARTRATE 15MCG/2 ML AMP NEB SCH ×2 (08:25→21:14)
[2019-01-26] MEDS: RANOLAZINE (SR) 500 MG TAB PO SCH ×2 (09:08→20:48)
[2019-01-26] MEDS: METOPROLOL (XL) 50 MG TAB PO SCH (09:08)
[2019-01-26] MEDS: TAMSULOSIN (SR) 0.4 MG CAP PO SCH (09:08)
[2019-01-26] MEDS: DONEPEZIL 5 MG TAB PO SCH (09:08)
[2019-01-26] MEDS: PENTOXIFYLLINE (SR) 400 MG TAB PO SCH ×4 (09:08→18:20)
[2019-01-26] MEDS: AMLODIPINE 10 MG TAB PO SCH (09:08)
[2019-01-26] MEDS: ASPIRIN (EC) 81 MG TAB PO SCH (09:09)
[2019-01-26] MEDS: CYCLOSPORINE 0.05% OPH DROPERETTE BOTH EYES SCH ×2 (09:09→20:48)
--- NOTE | 2019-01-26 11:29 | PN ---
Date/Time of Note Date/Time of Note DATE: 01/26/19 TIME: 11:28 Assessment/Plan VTE Prophylaxis Risk score (from Nsg)>0 risk: 4 SCD applied (from Nsg): Yes Pharmacological prophylaxis: heparin Lines/Catheters IV Catheter Type (from Nrs): Saline Lock Urinary Cath still in place: No Assessment/Plan Hospital Course SUBJECTIVE: Remains on 2L O2 via NC. OBJECTIVE: Physical Exam General: Adequately build 83 year-old male lying in bed in no apparent distress. HEENT: Normocephalic, atraumatic. Eyes: Anicteric sclerae, conjunctivae clear. ENT: Nasal septum midline, oral mucosa moist. Neck supple. Respiratory: Bilaterally diminished breath sounds. Use of accessory muscles of respiration. B/L rales. Cardiovascular: S1, S2 heard. Regular rate and rhythm. Abdomen: Soft, nontender, and nondistended. Bowel sounds positive in all 4 quadrants. Genitourinary: Deferred. Extremities: No cyanosis, no clubbing, no edema. Left lower extremity Cam boot on. Neurologic: Cranial nerves II through XII grossly intact. The patient is awake, alert, and oriented. Skin: Normal skin turgor. No skin rashes. Labs & Vitals per chart ASSESSMENT & PLAN 83-year-old male with comorbidities including hypertension, CKD, peripheral artery disease, and COPD who came to the emergency room with chief complaint of dyspnea with evidence of underlying hypoxia and pulmonary infiltrates, who was admitted to inpatient setting for further treatment and evaluation. 1. Acute respiratory failure. -Hypoxic -Etiology unclear. May be multifactorial in origin including underlying bilateral pleural effusions. -Continue supplemental oxygen. -Continue inhaled bronchodilators. -Continue diuresis. -Pulmonology following. 2. Bilateral pleural effusions. -Continue diuresis while carefully monitoring renal function. 3. CHF exacerbation, acute on chronic systolic dysfunction. -Continue diuretic therapy while carefully monitoring renal function. -Cardiology following. 4. Peripheral artery disease. -Continue aspirin and pentoxifylline. 5. Hypertension. -Continue antihypertensives. -Hold ARBs because of worsening renal function. 6. Acute on chronic kidney disease. -Hold nephrotoxic medications. -Monitor BUN and creatinine closely. -Nephrology following. 7. COPD. -Continue the patient on inhaled bronchodilators; JESUS and LABA. -Status post IV steroids. 8. Fluids, electrolytes, and nutrition. -Low-cholesterol diet. 9. DVT prophylaxis. -Subcutaneous heparin. 10. Plan. -Titrate down O2. -PT evaluation. -Await clinical improvement before discharging the patient home. Called the patient's son-in-law Aubrey on 01/24/2019 and 01/25/2019, and explained the patient's current condition. The patient was seen in collaboration with Dr. Campuzano. Result Diagram: 01/26/19 0507 01/26/19 0507 Results 24hrs Laboratory Tests Test 01/26/19 05:07 White Blood Count 8.2 Red Blood Count 4.58 L Hemoglobin 13.2 L Hematocrit 40.6 L Mean Corpuscular Volume 88.6 Mean Corpuscular Hemoglobin 28.8 L Mean Corpuscular Hemoglobin Concent 32.5 Red Cell Distribution Width 13.8 Platelet Count 275 Mean Platelet Volume 10.6 H Immature Granulocytes % 0.600 H Neutrophils % 73.9 Lymphocytes % 14.2 L Monocytes % 9.8 Eosinophils % 1.1 Basophils % 0.4 Nucleated Red Blood Cells % 0.0 Immature Granulocytes # 0.050 H Neutrophils # 6.1 Lymphocytes # 1.2 Monocytes # 0.8 Eosinophils # 0.1 Basophils # 0.0 Nucleated Red Blood Cells # 0.0 Sodium Level 143 Potassium Level 4.1 Chloride Level 110 Carbon Dioxide Level 26 Anion Gap 7 Blood Urea Nitrogen 57 H Creatinine 2.28 H Est Glomerular Filtrat Rate mL/min Glucose Level 97 Calcium Level 8.8 Phosphorus Level 4.0 Magnesium Level 2.0 Exam/Review of Systems Exam Vitals Vital Signs Date Temp Pulse Resp B/P (MAP) Pulse Ox O2 O2 Flow FiO2 Time Delivery Rate 01/26/19 Nasal 4.0 08:52 Cannula 01/26/19 102 18 97 08:25 01/26/19 98.0 157/81 07:21 (106) 01/24/19 30 17:32 Intake and Output 01/25/19 01/25/19 01/26/19 1515:00 23:00 07:00 IntakeIntake Total 480 ml 500 ml OutputOutput Total 1200 ml 800 ml BalanceBalance -720 ml -300 ml Results Results 24hrs Laboratory Tests Test 01/26/19 05:07 White Blood Count 8.2 Red Blood Count 4.58 L Hemoglobin 13.2 L Hematocrit 40.6 L Mean Corpuscular Volume 88.6 Mean Corpuscular Hemoglobin 28.8 L Mean Corpuscular Hemoglobin Concent 32.5 Red Cell Distribution Width 13.8 Platelet Count 275 Mean Platelet Volume 10.6 H Immature Granulocytes % 0.600 H Neutrophils % 73.9 Lymphocytes % 14.2 L Monocytes % 9.8 Eosinophils % 1.1 Basophils % 0.4 Nucleated Red Blood Cells % 0.0 Immature Granulocytes # 0.050 H Neutrophils # 6.1 Lymphocytes # 1.2 Monocytes # 0.8 Eosinophils # 0.1 Basophils # 0.0 Nucleated Red Blood Cells # 0.0 Sodium Level 143 Potassium Level 4.1 Chloride Level 110 Carbon Dioxide Level 26 Anion Gap 7 Blood Urea Nitrogen 57 H Creatinine 2.28 H Est Glomerular Filtrat Rate mL/min Glucose Level 97 Calcium Level 8.8 Phosphorus Level 4.0 Magnesium Level 2.0 Medications Medication Current Medications IV Flush (NS 3 ml) 3 ml PER PROTOCOL IV ; Start 01/20/19 at 11:00 Ondansetron HCl (Zofran Inj) 4 mg Q6H PRN IV NAUSEA/VOMITING; Start 01/20/19 at 11:00 Acetaminophen (Tylenol Tab) 650 mg Q6H PRN PO .PAIN 1-3 OR TEMP; Start 01/20/19 at 11:00 Amlodipine Besylate (Norvasc) 10 mg DAILY PO Last administered on 01/26/19 09:08; Admin Dose 10 MG; Start 01/21/19 at 09:00 Aspirin (Halfprin) 81 mg DAILY PO Last administered on 01/26/19 09:09; Admin Dose 81 MG; Start 01/21/19 at 09:00 Cyclosporine (Restasis) 1 drop Q12 BOTH EYES Last administered on 01/26/19 09:09; Admin Dose 1 DROP; Start 01/20/19 at 21:00 Donepezil HCl (Aricept) 5 mg DAILY PO Last administered on 01/26/19 09:08; Admin Dose 5 MG; Start 01/21/19 at 09:00 Metoprolol Succinate (Toprol Xl) 50 mg DAILY PO Last administered on 01/26/19 09:08; Admin Dose 50 MG; Start 01/21/19 at 09:00 Pentoxifylline (Trental) 400 mg WITH MEALS PO Last administered on 01/26/19 09 :08; Admin Dose 400 MG; Start 01/20/19 at 18:00 Ranolazine (Ranexa) 500 mg Q12 PO Last administered on 01/26/19 09:08; Admin Dose 500 MG; Start 01/20/19 at 21:00 Tamsulosin HCl (Flomax) 0.4 mg DAILY PO Last administered on 01/26/19 09:08; Admin Dose 0.4 MG; Start 01/21/19 at 09:00 Albuterol/ Ipratropium (Duoneb) 3 ml Q2H RESP THERAPY PRN HHN SHORTNESS OF BREATH Last administered on 01/21/19 22:56; Admin Dose 3 ML; Start 01/20/19 at 13:00 Arformoterol Tartrate (Brovana (Neb)) 2 ml BID NEB Last administered on 01/26/19 08:25; Admin Dose 2 ML; Start 01/20/19 at 21:00 Hydralazine HCl (Apresoline) 10 mg Q6H PRN IV SBP>160; Start 01/20/19 at 12:30 Pantoprazole (Protonix Tab) 40 mg DAILY@06 PO Last administered on 01/26/19 05:50; Admin Dose 40 MG; Start 01/22/19 at 06:00 Levalbuterol (Xopenex Neb) 1.25 mg Q4H RESP THERAPY HHN Last administered on 01/26/19 08:24; Admin Dose 1.25 MG; Start 01/21/19 at 23:30 Ipratropium [place] (Atrovent 0.02% (Neb)) 0.5 mg Q4H RESP THERAPY HHN Last a dministered on 01/26/19 08:24; Admin Dose 0.5 MG; Start 01/22/19 at 01:00 Senna (Senokot) 2 tab BID PRN PO CONSTIPATION Last administered on 01/26/19 05:50; Admin Dose 2 TAB; Start 01/25/19 at 23:30 PARAS MCDONALD NP Jan 26, 2019 11:29
--- NOTE | 2019-01-26 13:04 | CONS ---
Assessment/Plan Assessment/Plan Hospital Course (Demo Recall) 1. Nonoliguric acute kidney injury on top of chronic kidney disease stage III with previous baseline creatinine of 1.4 to 1.5 mg/dL. Etiology of acute kidney injury is secondary to hemodynamics, diuretic therapy. The patient's urinalysis was reviewed. No evidence of active sediment. off ivf. renal function improved. Continue to hold diuretic therapy. We would otherwise continue supportive care and renally dose all medications. Please avoiding KATHY and ARBs at this time. 2. Anemia. Monitor hemoglobin and hematocrit levels. 3. Mineral bone disorder. Monitor calcium and phosphorus levels. 4. Acute hypoxic respiratory failure secondary to chronic obstructive pulmonary disease exacerbation, pneumonia. Continue current medical management. Continue supplemental oxygen, nebulizer and antibiotic therapy. Follow up with pulmonary. 5. History of diastolic heart failure. The patient is currently compensated on exam. We will continue to hold diuretic therapy. We will give the patient gentle fluid challenge. 6. Peripheral arterial disease. Continue medical management. 7. Hypertension. Continue current blood pressure regimen. 8. History of tobacco. Consultation Date/Type/Reason Admit Date/Time January 20, 2019 at 09:01 Initial Consult Date 01/22/19 Requesting Provider: NAIN SHERMAN Date/Time of Note DATE: 01/26/19 TIME: 13:03 24 HR Interval Summary Free Text/Dictation denies shortness of breath, n/v or urinary issues d'/w rn gen nad cv rrr pulm ctab abd soft, nd, nt +bs ext: no edema Exam/Review of Systems Exam Vitals Vital Signs Date Temp Pulse Resp B/P (MAP) Pulse Ox O2 O2 Flow FiO2 Time Delivery Rate 01/26/19 97 12:02 01/26/19 98.0 20 164/102 94 11:35 (122) 01/26/19 Nasal 4.0 08:52 Cannula 01/24/19 30 17:32 Intake and Output 01/25/19 01/25/19 01/26/19 1515:00 23:00 07:00 IntakeIntake Total 480 ml 500 ml OutputOutput Total 1200 ml 800 ml BalanceBalance -720 ml -300 ml Results Result Diagram: 01/26/19 0507 01/26/19 0507 Results 24hrs Laboratory Tests Test 01/26/19 05:07 White Blood Count 8.2 Red Blood Count 4.58 L Hemoglobin 13.2 L Hematocrit 40.6 L Mean Corpuscular Volume 88.6 Mean Corpuscular Hemoglobin 28.8 L Mean Corpuscular Hemoglobin Concent 32.5 Red Cell Distribution Width 13.8 Platelet Count 275 Mean Platelet Volume 10.6 H Immature Granulocytes % 0.600 H Neutrophils % 73.9 Lymphocytes % 14.2 L Monocytes % 9.8 Eosinophils % 1.1 Basophils % 0.4 Nucleated Red Blood Cells % 0.0 Immature Granulocytes # 0.050 H Neutrophils # 6.1 Lymphocytes # 1.2 Monocytes # 0.8 Eosinophils # 0.1 Basophils # 0.0 Nucleated Red Blood Cells # 0.0 Sodium Level 143 Potassium Level 4.1 Chloride Level 110 Carbon Dioxide Level 26 Anion Gap 7 Blood Urea Nitrogen 57 H Creatinine 2.28 H Est Glomerular Filtrat Rate mL/min Glucose Level 97 Calcium Level 8.8 Phosphorus Level 4.0 Magnesium Level 2.0 Medications Medication Current Medications IV Flush (NS 3 ml) 3 ml PER PROTOCOL IV ; Start 01/20/19 at 11:00 Ondansetron HCl (Zofran Inj) 4 mg Q6H PRN IV NAUSEA/VOMITING; Start 01/20/19 at 11:00 Acetaminophen (Tylenol Tab) 650 mg Q6H PRN PO .PAIN 1-3 OR TEMP; Start 01/20/19 at 11:00 Amlodipine Besylate (Norvasc) 10 mg DAILY PO Last administered on 01/26/19 09:08; Admin Dose 10 MG; Start 01/21/19 at 09:00 Aspirin (Halfprin) 81 mg DAILY PO Last administered on 01/26/19 09:09; Admin Dose 81 MG; Start 01/21/19 at 09:00 Cyclosporine (Restasis) 1 drop Q12 BOTH EYES Last administered on 01/26/19 09:09; Admin Dose 1 DROP; Start 01/20/19 at 21:00 Donepezil HCl (Aricept) 5 mg DAILY PO Last administered on 01/26/19 09:08; Admin Dose 5 MG; Start 01/21/19 at 09:00 Metoprolol Succinate (Toprol Xl) 50 mg DAILY PO Last administered on 01/26/19 09:08; Admin Dose 50 MG; Start 01/21/19 at 09:00 Pentoxifylline (Trental) 400 mg WITH MEALS PO Last administered on 01/26/19 09:08; Admin Dose 400 MG; Start 01/20/19 at 18:00 Ranolazine (Ranexa) 500 mg Q12 PO Last administered on 01/26/19 09:08; Admin Dose 500 MG; Start 01/20/19 at 21:00 Tamsulosin HCl (Flomax) 0.4 mg DAILY PO Last administered on 01/26/19 09:08; Admin Dose 0.4 MG; Start 01/21/19 at 09:00 Albuterol/ Ipratropium (Duoneb) 3 ml Q2H RESP THERAPY PRN HHN SHORTNESS OF BREATH Last administered on 01/21/19 22:56; Admin Dose 3 ML; Start 01/20/19 at 13:00 Arformoterol Tartrate (Brovana (Neb)) 2 ml BID NEB Last administered on 01/26/19 08:25; Admin Dose 2 ML; Start 01/20/19 at 21:00 Hydralazine HCl (Apresoline) 10 mg Q6H PRN IV SBP>160; Start 01/20/19 at 12:30 Pantoprazole (Protonix Tab) 40 mg DAILY@06 PO Last administered on 01/26/19 05:50; Admin Dose 40 MG; Start 01/22/19 at 06:00 Levalbuterol (Xopenex Neb) 1.25 mg Q4H RESP THERAPY HHN Last administered on 01/26/19 08:24; Admin Dose 1.25 MG; Start 01/21/19 at 23:30 Ipratropium [place] (Atrovent 0.02% (Neb)) 0.5 mg Q4H RESP THERAPY HHN Last administered on 01/26/19 08:24; Admin Dose 0.5 MG; Start 01/22/19 at 01:00 Senna (Senokot) 2 tab BID PRN PO CONSTIPATION Last administered on 01/26/19 05:50; Admin Dose 2 TAB; Start 01/25/19 at 23:30 JAMAAL CAMPBELL MD Jan 26, 2019 13:04
--- NOTE | 2019-01-26 13:09 | CONS ---
Consult Date/Type/Reason Admit Date/Time January 20, 2019 at 09:01 Initial Consult Date Type of Consultation: Pulm Requesting Provider: NAIN SHERMAN Date/Time of Note DATE: 01/26/19 TIME: 13:06 Subjective No acute events - pt feels better - improving renal function - will allow permissive HTN per renal recs - no CP now. ROS: No fever, no chills, no nausea, no vomiting, no diarrhea/constipation No recent weight changes No chest pain, no PND, no orthopnea - chronic SOB/COPD No dizziness, blurred vision No thirst, no heat or cold intolerance Objective Vitals Vital Signs Date Temp Pulse Resp B/P (MAP) Pulse Ox O2 O2 Flow FiO2 Time Delivery Rate 01/26/19 97 12:02 01/26/19 98.0 20 164/102 94 11:35 (122) 01/26/19 Nasal 4.0 08:52 Cannula 01/24/19 30 17:32 Intake and Output 01/25/19 01/25/19 01/26/19 1515:00 23:00 07:00 IntakeIntake Total 480 ml 500 ml OutputOutput Total 1200 ml 800 ml BalanceBalance -720 ml -300 ml Exam General: WN/WD/NAD, AOx 3 HEENT: Unicetric/atraumatic/EOMI (follow commands) NECK: JVD elevated, no thyromegaly Lymph: no lymphadenopathy HEART: regular with no S3, II/ systolic murmur at apex, mild wheezing LUNGS: Coarse sounds ABD: soft, NT, ND, +BS : Intact Neuro: non focal SKIN: chronic changes EXT: trace edema Results/Medications Result Diagram: 01/26/19 0507 01/26/19 0507 Results 24 hrs Laboratory Tests Test 01/26/19 05:07 White Blood Count 8.2 Red Blood Count 4.58 L Hemoglobin 13.2 L Hematocrit 40.6 L Mean Corpuscular Volume 88.6 Mean Corpuscular Hemoglobin 28.8 L Mean Corpuscular Hemoglobin Concent 32.5 Red Cell Distribution Width 13.8 Platelet Count 275 Mean Platelet Volume 10.6 H Immature Granulocytes % 0.600 H Neutrophils % 73.9 Lymphocytes % 14.2 L Monocytes % 9.8 Eosinophils % 1.1 Basophils % 0.4 Nucleated Red Blood Cells % 0.0 Immature Granulocytes # 0.050 H Neutrophils # 6.1 Lymphocytes # 1.2 Monocytes # 0.8 Eosinophils # 0.1 Basophils # 0.0 Nucleated Red Blood Cells # 0.0 Sodium Level 143 Potassium Level 4.1 Chloride Level 110 Carbon Dioxide Level 26 Anion Gap 7 Blood Urea Nitrogen 57 H Creatinine 2.28 H Est Glomerular Filtrat Rate mL/min Glucose Level 97 Calcium Level 8.8 Phosphorus Level 4.0 Magnesium Level 2.0 Home Meds Reported Medications Naproxen* (Naproxen*) 500 Mg Tablet, 500 MG PO BID PRN for PAIN, TAB 01/20/19 Diclofenac Sodium* (Voltaren* Gel) 1% -100 Gm Gel, 2 GM TOP QID, #1 TUB 01/20/19 Budesonide-Formoterol Fumarate* (Symbicort*) 160-4.5 Hfa.aer.ad, 2 PUFF INHALATION BID, #1 EACH 01/20/19 Cyclosporine (RESTASIS) 1 Each Droperette, 1 DROP BOTH EYES Q12, #1 BOX 01/20/19 Ranolazine* (Ranexa*) 500 Mg Tab.sr.12h, 500 MG PO Q12, TAB 01/20/19 Tamsulosin Hcl* (Flomax*) 0.4 Mg Cap.er.24h, 0.4 MG PO DAILY, CAP 01/20/19 Linaclotide (LINZESS) 145 Mcg Capsule, 145 MCG PO DAILY, #30 CAP 01/20/19 Nebivolol Hcl* (Bystolic*) 10 Mg Tablet, 10 MG PO DAILY, #30 TAB 01/20/19 Losartan Potassium* (Losartan Potassium*) 100 Mg Tablet, 100 MG PO DAILY, TAB 01/20/19 Omeprazole* (Omeprazole*) 20 Mg Capsule.dr, 20 MG PO DAILY, #30 CAP 01/20/19 Donepezil* (Aricept*) 5 Mg Tablet, 5 MG PO DAILY, TAB 01/20/19 Meloxicam* (Meloxicam*) 7.5 Mg Tablet, 7.5 MG PO DAILY, #30 TAB 01/20/19 Aspirin (Low Dose Aspirin) 81 Mg Tablet.dr, 81 MG PO DAILY, #30 TAB 01/20/19 Amlodipine Besylate* (Amlodipine Besylate*) 10 Mg Tablet, 10 MG PO DAILY, #30 TAB 01/20/19 Metoprolol Succinate* (Toprol XL*) 50 Mg Tab.er.24h, 50 MG PO DAILY, #30 TAB 01/20/19 Pentoxifylline* (Pentoxifylline*) 400 Mg Tablet.sa, 400 MG PO WITH MEALS, TAB 01/20/19 Discontinued Reported Medications Omeprazole* (Omeprazole*) 20 Mg Capsule.dr, 20 MG PO DAILY, #30 CAP 01/30/17 Meloxicam* (Meloxicam*) 7.5 Mg Tablet, 7.5 MG PO DAILY, #30 TAB 01/30/17 Metoprolol Succinate* (Toprol XL*) 50 Mg Tab.er.24h, 50 MG PO DAILY, #30 TAB 01/30/17 Pentoxifylline* (Pentoxifylline*) 400 Mg Tablet.sa, 400 MG PO TID, TAB 01/30/17 Olmesartan-Hydrochlorothiazide (Benicar HCT) 20-12.5 Mg Tablet, 2 TAB PO DAILY, #30 TAB 01/30/17 Discontinued Scripts Acetaminophen* (Tylophen*) 500 Mg Capsule, 1 CAP PO Q6H PRN for PAIN AND OR ELEVATED TEMP, #30 CAP Prov:MARIBEL DUVALL PA-C 03/08/18 Tramadol HCl (Tramadol HCl) 50 Mg Tablet, 50 MG PO Q6 PRN for PAIN, #20 TAB Prov:MARIBEL DUVALL PA-C 03/08/18 Meloxicam* (Meloxicam*) 7.5 Mg Tablet, 7.5 MG PO DAILY, #30 TAB Prov:CAPRICE LIVINGSTONC 02/03/18 Medications Current Medications IV Flush (NS 3 ml) 3 ml PER PROTOCOL IV ; Start 01/20/19 at 11:00 Ondansetron HCl (Zofran Inj) 4 mg Q6H PRN IV NAUSEA/VOMITING; Start 01/20/19 at 11:00 Acetaminophen (Tylenol Tab) 650 mg Q6H PRN PO .PAIN 1-3 OR TEMP; Start 01/20/19 at 11:00 Amlodipine Besylate (Norvasc) 10 mg DAILY PO Last administered on 01/26/19at 09:08; Admin Dose 10 MG; Start 01/21/19 at 09:00 Aspirin (Halfprin) 81 mg DAILY PO Last administered on 01/26/19 09:09; Admin Dose 81 MG; Start 01/21/19 at 09:00 Cyclosporine (Restasis) 1 drop Q12 BOTH EYES Last administered on 01/26/19 09:09; Admin Dose 1 DROP; Start 01/20/19 at 21:00 Donepezil HCl (Aricept) 5 mg DAILY PO Last administered on 01/26/19 09:08; Admin Dose 5 MG; Start 01/21/19 at 09:00 Metoprolol Succinate (Toprol Xl) 50 mg DAILY PO Last administered on 01/26/19 09:08; Admin Dose 50 MG; Start 01/21/19 at 09:00 Pentoxifylline (Trental) 400 mg WITH MEALS PO Last administered on 01/26/19 09:08; Admin Dose 400 MG; Start 01/20/19 at 18:00 Ranolazine (Ranexa) 500 mg Q12 PO Last administered on 01/26/19 09:08; Admin Dose 500 MG; Start 01/20/19 at 21:00 Tamsulosin HCl (Flomax) 0.4 mg DAILY PO Last administered on 01/26/19 09:08; Admin Dose 0.4 MG; Start 01/21/19 at 09:00 Albuterol/ Ipratropium (Duoneb) 3 ml Q2H RESP THERAPY PRN HHN SHORTNESS OF BREATH Last administered on 01/21/19 22:56; Admin Dose 3 ML; Start 01/20/19 at 13:00 Arformoterol Tartrate (Brovana (Neb)) 2 ml BID NEB Last administered on 01/26/19 08:25; Admin Dose 2 ML; Start 01/20/19 at 21:00 Hydralazine HCl (Apresoline) 10 mg Q6H PRN IV SBP>160; Start 01/20/19 at 12:30 Pantoprazole (Protonix Tab) 40 mg DAILY@06 PO Last administered on 01/26/19 05:50; Admin Dose 40 MG; Start 01/22/19 at 06:00 Levalbuterol (Xopenex Neb) 1.25 mg Q4H RESP THERAPY HHN Last administered on 01/26/19 08:24; Admin Dose 1.25 MG; Start 01/21/19 at 23:30 Ipratropium [place] (Atrovent 0.02% (Neb)) 0.5 mg Q4H RESP THERAPY HHN Last administered on 01/26/19at 08:24; Admin Dose 0.5 MG; Start 01/22/19 at 01:00 Senna (Senokot) 2 tab BID PRN PO CONSTIPATION Last administered on 01/26/19at 05:50; Admin Dose 2 TAB; Start 01/25/19 at 23:30 Assessment/Plan Hospital Course (Demo Recall) 1. Shortness of breath, assess congestive heart failure - does not appear to be in CHF clinically, will keep euvolemic now. Lasix held with increased Cr - better now - will monitor. 2. Increased BNP, assess for congestive heart failure - con't to monitor - better now. Treated. 3. Probable chronic obstructive pulmonary disease - on Rx, feels better todya - con't bronchodilators. Overall reasonably treated. 4. Possible pneumonia/upper respiratory infection - beny nti-Bx, no fever now. 5. Renal failure - avoid nephrotoxic meds. Stable urine output. CR better. 6. Peripheral arterial disease- on meds now. 7. Hypertension - con;t Rx. Per renal team, will allow permissive HTN. 8. Remote tobacco intake RICK PEREZ MD Jan 26, 2019 13:09
--- NOTE | 2019-01-26 16:43 | CONS ---
Consult Date/Type/Reason Admit Date/Time January 20, 2019 at 09:01 Initial Consult Date 01/22/19 Type of Consultation: Pulm Requesting Provider: NAIN SHERMAN Date/Time of Note DATE: 01/26/19 TIME: 16:41 Subjective No events. Creatinine improved. On 1 L O2 via NC. Objective Vitals Vital Signs Date Temp Pulse Resp B/P (MAP) Pulse Ox O2 O2 Flow FiO2 Time Delivery Rate 01/26/19 1.0 16:09 01/26/19 84 18 97 Nasal 16:09 Cannula 01/26/19 98.0 167/90 16:01 (115) 01/24/19 30 17:32 Intake and Output 01/25/19 01/25/19 01/26/19 1515:00 23:00 07:00 IntakeIntake Total 480 ml 500 ml OutputOutput Total 1200 ml 800 ml BalanceBalance -720 ml -300 ml Exam GENERAL: Elderly [place] gentleman comfortable at rest VITAL SIGNS: per chart NECK: Supple. No JVD or lymphadenopathy. CARDIAC EXAM: S1, S2. No added sounds or murmurs. CHEST: Bibasilar rales ABDOMEN: Soft, nontender. No guarding or rebound. EXTREMITIES: No cyanosis, clubbing or edema. NEUROLOGIC: Generalized weakness. No focal deficits. Results/Medications Result Diagram: 01/26/19 0507 01/26/19 0507 Results 24 hrs Laboratory Tests Test 01/26/19 05:07 White Blood Count 8.2 Red Blood Count 4.58 L Hemoglobin 13.2 L Hematocrit 40.6 L Mean Corpuscular Volume 88.6 Mean Corpuscular Hemoglobin 28.8 L Mean Corpuscular Hemoglobin Concent 32.5 Red Cell Distribution Width 13.8 Platelet Count 275 Mean Platelet Volume 10.6 H Immature Granulocytes % 0.600 H Neutrophils % 73.9 Lymphocytes % 14.2 L Monocytes % 9.8 Eosinophils % 1.1 Basophils % 0.4 Nucleated Red Blood Cells % 0.0 Immature Granulocytes # 0.050 H Neutrophils # 6.1 Lymphocytes # 1.2 Monocytes # 0.8 Eosinophils # 0.1 Basophils # 0.0 Nucleated Red Blood Cells # 0.0 Sodium Level 143 Potassium Level 4.1 Chloride Level 110 Carbon Dioxide Level 26 Anion Gap 7 Blood Urea Nitrogen 57 H Creatinine 2.28 H Est Glomerular Filtrat Rate mL/min Glucose Level 97 Calcium Level 8.8 Phosphorus Level 4.0 Magnesium Level 2.0 Home Meds Reported Medications Naproxen* (Naproxen*) 500 Mg Tablet, 500 MG PO BID PRN for PAIN, TAB 01/20/19 Diclofenac Sodium* (Voltaren* Gel) 1% -100 Gm Gel, 2 GM TOP QID, #1 TUB 01/20/19 Budesonide-Formoterol Fumarate* (Symbicort*) 160-4.5 Hfa.aer.ad, 2 PUFF INHALATION BID, #1 EACH 01/20/19 Cyclosporine (RESTASIS) 1 Each Droperette, 1 DROP BOTH EYES Q12, #1 BOX 01/20/19 Ranolazine* (Ranexa*) 500 Mg Tab.sr.12h, 500 MG PO Q12, TAB 01/20/19 Tamsulosin Hcl* (Flomax*) 0.4 Mg Cap.er.24h, 0.4 MG PO DAILY, CAP 01/20/19 Linaclotide (LINZESS) 145 Mcg Capsule, 145 MCG PO DAILY, #30 CAP 01/20/19 Nebivolol Hcl* (Bystolic*) 10 Mg Tablet, 10 MG PO DAILY, #30 TAB 01/20/19 Losartan Potassium* (Losartan Potassium*) 100 Mg Tablet, 100 MG PO DAILY, TAB 01/20/19 Omeprazole* (Omeprazole*) 20 Mg Capsule.dr, 20 MG PO DAILY, #30 CAP 01/20/19 Donepezil* (Aricept*) 5 Mg Tablet, 5 MG PO DAILY, TAB 01/20/19 Meloxicam* (Meloxicam*) 7.5 Mg Tablet, 7.5 MG PO DAILY, #30 TAB 01/20/19 Aspirin (Low Dose Aspirin) 81 Mg Tablet.dr, 81 MG PO DAILY, #30 TAB 01/20/19 Amlodipine Besylate* (Amlodipine Besylate*) 10 Mg Tablet, 10 MG PO DAILY, #30 TAB 01/20/19 Metoprolol Succinate* (Toprol XL*) 50 Mg Tab.er.24h, 50 MG PO DAILY, #30 TAB 01/20/19 Pentoxifylline* (Pentoxifylline*) 400 Mg Tablet.sa, 400 MG PO WITH MEALS, TAB 01/20/19 Discontinued Reported Medications Omeprazole* (Omeprazole*) 20 Mg Capsule.dr, 20 MG PO DAILY, #30 CAP 01/30/17 Meloxicam* (Meloxicam*) 7.5 Mg Tablet, 7.5 MG PO DAILY, #30 TAB 01/30/17 Metoprolol Succinate* (Toprol XL*) 50 Mg Tab.er.24h, 50 MG PO DAILY, #30 TAB 01/30/17 Pentoxifylline* (Pentoxifylline*) 400 Mg Tablet.sa, 400 MG PO TID, TAB 01/30/17 Olmesartan-Hydrochlorothiazide (Benicar HCT) 20-12.5 Mg Tablet, 2 TAB PO DAILY, #30 TAB 01/30/17 Discontinued Scripts Acetaminophen* (Tylophen*) 500 Mg Capsule, 1 CAP PO Q6H PRN for PAIN AND OR ELEVATED TEMP, #30 CAP Prov:MARIBEL DUVALL PA-C 03/08/18 Tramadol HCl (Tramadol HCl) 50 Mg Tablet, 50 MG PO Q6 PRN for PAIN, #20 TAB Prov:MARIBEL DUVALL PA-C 03/08/18 Meloxicam* (Meloxicam*) 7.5 Mg Tablet, 7.5 MG PO DAILY, #30 TAB Prov:CAPRICE LIVINGSTON PA-C 02/03/18 Medications Current Medications IV Flush (NS 3 ml) 3 ml PER PROTOCOL IV ; Start 01/20/19 at 11:00 Ondansetron HCl (Zofran Inj) 4 mg Q6H PRN IV NAUSEA/VOMITING; Start 01/20/19 at 11:00 Acetaminophen (Tylenol Tab) 650 mg Q6H PRN PO .PAIN 1-3 OR TEMP; Start 01/20/19 at 11:00 Amlodipine Besylate (Norvasc) 10 mg DAILY PO Last administered on 01/26/19at 09:08; Admin Dose 10 MG; Start 01/21/19 at 09:00 Aspirin (Halfprin) 81 mg DAILY PO Last administered on 01/26/19at 09:09; Admin Dose 81 MG; Start 01/21/19 at 09:00 Cyclosporine (Restasis) 1 drop Q12 BOTH EYES Last administered on 01/26/19at 09:09; Admin Dose 1 DROP; Start 01/20/19 at 21:00 Donepezil HCl (Aricept) 5 mg DAILY PO Last administered on 01/26/19 09:08; Admin Dose 5 MG; Start 01/21/19 at 09:00 Metoprolol Succinate (Toprol Xl) 50 mg DAILY PO Last administered on 01/26/19 09:08; Admin Dose 50 MG; Start 01/21/19 at 09:00 Pentoxifylline (Trental) 400 mg WITH MEALS PO Last administered on 01/26/19 13:18; Admin Dose 400 MG; Start 01/20/19 at 18:00 Ranolazine (Ranexa) 500 mg Q12 PO Last administered on 01/26/19 09:08; Admin Dose 500 MG; Start 01/20/19 at 21:00 Tamsulosin HCl (Flomax) 0.4 mg DAILY PO Last administered on 01/26/19 09:08; Admin Dose 0.4 MG; Start 01/21/19 at 09:00 Albuterol/ Ipratropium (Duoneb) 3 ml Q2H RESP THERAPY PRN HHN SHORTNESS OF BREATH Last administered on 01/21/19 22:56; Admin Dose 3 ML; Start 01/20/19 at 13:00 Arformoterol Tartrate (Brovana (Neb)) 2 ml BID NEB Last administered on 01/26/19 08:25; Admin Dose 2 ML; Start 01/20/19 at 21:00 Pantoprazole (Protonix Tab) 40 mg DAILY@06 PO Last administered on 01/26/19 05:50; Admin Dose 40 MG; Start 01/22/19 at 06:00 Levalbuterol (Xopenex Neb) 1.25 mg Q4H RESP THERAPY HHN Last administered on 01/26/19 16:09; Admin Dose 1.25 MG; Start 01/21/19 at 23:30 Ipratropium [place] (Atrovent 0.02% (Neb)) 0.5 mg Q4H RESP THERAPY HHN Last administered on 01/26/19 16:09; Admin Dose 0.5 MG; Start 01/22/19 at 01:00 Senna (Senokot) 2 tab BID PRN PO CONSTIPATION Last administered on 01/26/19 05:50; Admin Dose 2 TAB; Start 01/25/19 at 23:30 Hydralazine HCl (Apresoline) 25 mg Q6 PRN PO ELEVATED BLOOD PRESSURE; Start 01/26/19 at 13:30 Assessment/Plan Assessment/Plan (Daily) IMP: 1. Acute hypoxemic/hypercapnic respiratory failure likely secondary to COPD e xacerbation possible pulmonary edema 2. Chronic kidney disease 3. history of COPD 4. History of BPH RECS: 1. BD's 2. Keep I < O's 3. Titrate O2 to keep SpO2 88-92% 4. Follow Creatinine JO AYERS MD Jan 26, 2019 16:43
[2019-01-26] MEDS ORDERED: POLYETHYLENE GLYCOL 3350 119 GM POWDER PO ONE (23:30)
[2019-01-27] VITALS (8 sets, daily range): BP systolic 126–158; BP diastolic 80–95; PULSE 76–104; RESP 18–20
[2019-01-27] MEDS ORDERED: POLYETHYLENE GLYCOL 17 GM PACKET PO ONE
[2019-01-27] MEDS: LEVALBUTEROL (NEB) 1.25 MG/0.5 ML AMP HHN SCH ×5 (00:35→17:47)
[2019-01-27] MEDS: IPRATROPIUM (NEB) 0.5 MG/2.5 ML AMP HHN SCH ×5 (00:35→17:47)
[2019-01-27] MEDS: SENNA TAB PO PRN (06:40)
[2019-01-27] MEDS: PANTOPRAZOLE (EC) 40 MG TAB PO SCH (06:40)
[2019-01-27] MEDS: ARFORMOTEROL TARTRATE 15MCG/2 ML AMP NEB SCH (08:07)
[2019-01-27] MEDS ORDERED: NA PHOSPHATE/BIPHOS 133 ML ENEMA PR ONE (08:36)
[2019-01-27] MEDS: DONEPEZIL 5 MG TAB PO SCH (08:46)
[2019-01-27] MEDS: CYCLOSPORINE 0.05% OPH DROPERETTE BOTH EYES SCH (08:46)
[2019-01-27] MEDS: RANOLAZINE (SR) 500 MG TAB PO SCH (08:47)
[2019-01-27] MEDS: ASPIRIN (EC) 81 MG TAB PO SCH (08:47)
[2019-01-27] MEDS: PENTOXIFYLLINE (SR) 400 MG TAB PO SCH ×2 (08:47→15:59)
[2019-01-27] MEDS: AMLODIPINE 10 MG TAB PO SCH (08:47)
[2019-01-27] MEDS: METOPROLOL (XL) 50 MG TAB PO SCH (08:47)
[2019-01-27] MEDS: TAMSULOSIN (SR) 0.4 MG CAP PO SCH (08:47)
--- NOTE | 2019-01-27 10:27 | CONS ---
Assessment/Plan Assessment/Plan Hospital Course (Demo Recall) IMPRESSION: 1. Shortness of breath, assess congestive heart failure. 2. Increased BNP, assess for congestive heart failure.-systolic acute on chronic by echo 11/12 EF 40-45% 3. Probable chronic obstructive pulmonary disease. 4. Possible pneumonia/upper respiratory infection. 5. Renal failure-acute on chronic and worsening 6. Peripheral arterial disease. 7. Hypertension. 8. Remote tobacco intake. Recc: -Tele -Continue current Norvasc and increase metoprolol -Continue asa -Continue ranexa -? ability to resume lasix Consultation Date/Type/Reason Admit Date/Time January 20, 2019 at 09:01 Initial Consult Date 01/22/19 Type of Consult Cardiology Reason for Consultation sob Requesting Provider: NAIN SHERMAN Date/Time of Note DATE: 01/27/19 TIME: 10:22 Exam/Review of Systems Vital Signs Vitals Vital Signs Date Temp Pulse Resp B/P (MAP) Pulse Ox O2 O2 Flow FiO2 Time Delivery Rate 01/27/19 Nasal 1.0 08:30 Cannula 01/27/19 88 20 96 08:07 01/27/19 98.0 158/94 07:21 (115) 01/24/19 30 17:32 Intake and Output 01/26/19 01/26/19 01/27/19 1515:00 23:00 07:00 IntakeIntake Total 700 ml 480 ml OutputOutput Total 2000 ml 400 ml BalanceBalance -1300 ml 80 ml Exam Exam Review of Systems: CONSTITUTIONAL: No fevers, chills. PULMONARY: No sob CARDIOVASCULAR: No chest pain/palpitations GASTROINTESTINAL: No nausea/vomiting. GENITOURINARY: No hematuria/dysuria. MUSCULOSKELETAL: No myagias/arthalgias. PSYCHIATRIC: The patient denies depression. NEUROLOGIC: No weakness Constitutional: alert Psych: no complaints Head: normocephalic ENMT: mucosa pink and moist Neck: supple, jvd (9 cm water) Respiratory: diminished breath sounds Cardiovascular: regular rate and rhythm Gastrointestinal: soft, non-tender Musculoskeletal: muscle tone Neurological: other (No focal deficits) Labs Result Diagram: 01/27/19 0509 01/27/19 0509 Results 24hrs Laboratory Tests Test 01/27/19 05:09 White Blood Count 9.4 Red Blood Count 4.60 L Hemoglobin 13.3 L Hematocrit 40.4 L Mean Corpuscular Volume 87.8 Mean Corpuscular Hemoglobin 28.9 L Mean Corpuscular Hemoglobin Concent 32.9 Red Cell Distribution Width 13.8 Platelet Count 265 Mean Platelet Volume 10.5 H Immature Granulocytes % 0.400 Neutrophils % 77.2 H Lymphocytes % 11.8 L Monocytes % 8.2 Eosinophils % 2.2 Basophils % 0.2 Nucleated Red Blood Cells % 0.0 Immature Granulocytes # 0.040 H Neutrophils # 7.3 Lymphocytes # 1.1 Monocytes # 0.8 Eosinophils # 0.2 Basophils # 0.0 Nucleated Red Blood Cells # 0.0 Sodium Level 138 Potassium Level 4.4 Chloride Level 107 Carbon Dioxide Level 26 Anion Gap 5 Blood Urea Nitrogen 43 #H Creatinine 2.04 H Est Glomerular Filtrat Rate mL/min Glucose Level 108 Calcium Level 8.8 Phosphorus Level 3.8 Magnesium Level 2.0 Medications Medications Current Medications IV Flush (NS 3 ml) 3 ml PER PROTOCOL IV ; Start 01/20/19 at 11:00 Ondansetron HCl (Zofran Inj) 4 mg Q6H PRN IV NAUSEA/VOMITING; Start 01/20/19 at 11:00 Acetaminophen (Tylenol Tab) 650 mg Q6H PRN PO .PAIN 1-3 OR TEMP; Start 01/20/19 at 11:00 Amlodipine Besylate (Norvasc) 10 mg DAILY PO Last administered on 01/27/19 08:47; Admin Dose 10 MG; Start 01/21/19 at 09:00 Aspirin (Halfprin) 81 mg DAILY PO Last administered on 01/27/19 08:47; Admin Dose 81 MG; Start 01/21/19 at 09:00 Cyclosporine (Restasis) 1 drop Q12 BOTH EYES Last administered on 01/27/19 08:46; Admin Dose 1 DROP; Start 01/20/19 at 21:00 Donepezil HCl (Aricept) 5 mg DAILY PO Last administered on 01/27/19 08:46; Admin Dose 5 MG; Start 01/21/19 at 09:00 Metoprolol Succinate (Toprol Xl) 50 mg DAILY PO Last administered on 01/27/19 08:47; Admin Dose 50 MG; Start 01/21/19 at 09:00 Pentoxifylline (Trental) 400 mg WITH MEALS PO Last administered on 01/27/19 08:47; Admin Dose 400 MG; Start 01/20/19 at 18:00 Ranolazine (Ranexa) 500 mg Q12 PO Last administered on 01/27/19 08:47; Admin Dose 500 MG; Start 01/20/19 at 21:00 Tamsulosin HCl (Flomax) 0.4 mg DAILY PO Last administered on 01/27/19 08:47; Admin Dose 0.4 MG; Start 01/21/19 at 09:00 Albuterol/ Ipratropium (Duoneb) 3 ml Q2H RESP THERAPY PRN HHN SHORTNESS OF BREATH Last administered on 01/21/19 22:56; Admin Dose 3 ML; Start 01/20/19 at 13:00 Arformoterol Tartrate (Brovana (Neb)) 2 ml BID NEB Last administered on 01/27/19 08:07; Admin Dose 2 ML; Start 01/20/19 at 21:00 Pantoprazole (Protonix Tab) 40 mg DAILY@06 PO Last administered on 01/27/19 06:40; Admin Dose 40 MG; Start 01/22/19 at 06:00 Levalbuterol (Xopenex Neb) 1.25 mg Q4H RESP THERAPY HHN Last administered on 01/27/19 08:06; Admin Dose 1.25 MG; Start 01/21/19 at 23:30 Ipratropium [place] (Atrovent 0.02% (Neb)) 0.5 mg Q4H RESP THERAPY HHN Last administered on 01/27/19 08:06; Admin Dose 0.5 MG; Start 01/22/19 at 01:00 Senna (Senokot) 2 tab BID PRN PO CONSTIPATION Last administered on 01/27/19 06:40; Admin Dose 2 TAB; Start 01/25/19 at 23:30 Hydralazine HCl (Apresoline) 25 mg Q6 PRN PO ELEVATED BLOOD PRESSURE; Start 01/26/19 at 13:30 ELISABET MARCANO Jan 27, 2019 10:27
--- NOTE | 2019-01-27 11:10 | CONS ---
Assessment/Plan Assessment/Plan Assessment/Plan (Daily) Assessment and recommendations; 1. Patient admitted with COPD exacerbation as well as CHF exacerbation with significant interval improvement. 2. Baseline renal insufficiency with acute kidney injury with interval improvement as well. Lasix on hold. 3. History of COPD, BPH, and mild hypercapnic respiratory failure. Continue with supportive care. Once the serum creatinine has improved further patient can be discharged home. Patient may possibly benefit from nocturnal BiPAP. Consultation Date/Type/Reason Admit Date/Time January 20, 2019 at 09:01 Initial Consult Date 01/22/19 Type of Consult Pulmonary Patient is a 83-year-old male who was admitted on the of this month with a few days history of shortness of breath associated with cough. Patient denies any fever, chills, any sputum production or hemoptysis. Upon admission patient was diagnosed with CHF exacerbation and has been started on BiPAP as well as Lasix with significant improvement in symptoms. Past medical history; 1. Underlying cardia myopathy. 2. Likely chronic baseline renal insufficiency. 3. Peripheral vascular disease. 4. Possible underlying COPD as well. 5. BPH. 6. Systemic hypertension. Medications; reviewed. Allergies; none. Social history; patient has recently quit smoking. No stable alcohol or drug abuse. Family history; he is single. 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 Review of systems; denies any headache, sinus symptoms, seizures. Any chest pain, angina, wheezing. Shortness of breath is markedly improved. Denies any sputum production or hemoptysis. Denies any fever or chills. Any abdominal pain, nausea vomiting. Does complain of chronic urinary urgency and hesitation. Denies any melena hematochezia. Denies any weight loss. Denies any orthopnea. Denies any edema. General exam; elderly male, awake alert, currently in no distress. Requesting Provider: NAIN SHERMAN Date/Time of Note DATE: 01/27/19 TIME: 11:08 24 HR Interval Summary Free Text/Dictation Patient's condition is stable. Denies any shortness of breath at rest. Complains of mild dyspnea on exertion. Denies any chest pain, coughing, wheezing. General exam; elderly male, awake alert, currently no distress. Exam/Review of Systems Exam Vitals Vital Signs Date Temp Pulse Resp B/P (MAP) Pulse Ox O2 O2 Flow FiO2 Time Delivery Rate 01/27/19 Nasal 1.0 08:30 Cannula 01/27/19 88 20 96 08:07 01/27/19 98.0 158/94 07:21 (115) 01/24/19 30 17:32 Intake and Output 01/26/19 01/26/19 01/27/19 1515:00 23:00 07:00 IntakeIntake Total 700 ml 480 ml OutputOutput Total 2000 ml 400 ml BalanceBalance -1300 ml 80 ml Exam H EENT exam; supple neck, positive JVD. No lymphadenopathy. Midline trachea. No thyromegaly. Patient is edentulous. Chest exam; diminished breath sound lung bases. Upper lobes are clear. S1-S2 audible, no murmurs. Regular rhythm. Abdomen exam; soft, nontender. No organomegaly. Bowel sounds are audible. Extremity exam; no peripheral edema. MAGNETIC DOCTOR exam; no focal deficit. Results Result Diagram: 01/27/19 0509 01/27/19 0509 Results 24hrs Laboratory Tests Test 01/27/19 05:09 White Blood Count 9.4 Red Blood Count 4.60 L Hemoglobin 13.3 L Hematocrit 40.4 L Mean Corpuscular Volume 87.8 Mean Corpuscular Hemoglobin 28.9 L Mean Corpuscular Hemoglobin Concent 32.9 Red Cell Distribution Width 13.8 Platelet Count 265 Mean Platelet Volume 10.5 H Immature Granulocytes % 0.400 Neutrophils % 77.2 H Lymphocytes % 11.8 L Monocytes % 8.2 Eosinophils % 2.2 Basophils % 0.2 Nucleated Red Blood Cells % 0.0 Immature Granulocytes # 0.040 H Neutrophils # 7.3 Lymphocytes # 1.1 Monocytes # 0.8 Eosinophils # 0.2 Basophils # 0.0 Nucleated Red Blood Cells # 0.0 Sodium Level 138 Potassium Level 4.4 Chloride Level 107 Carbon Dioxide Level 26 Anion Gap 5 Blood Urea Nitrogen 43 #H Creatinine 2.04 H Est Glomerular Filtrat Rate mL/min Glucose Level 108 Calcium Level 8.8 Phosphorus Level 3.8 Magnesium Level 2.0 Medications Medication Current Medications IV Flush (NS 3 ml) 3 ml PER PROTOCOL IV ; Start 01/20/19 at 11:00 Ondansetron HCl (Zofran Inj) 4 mg Q6H PRN IV NAUSEA/VOMITING; Start 01/20/19 at 11:00 Acetaminophen (Tylenol Tab) 650 mg Q6H PRN PO .PAIN 1-3 OR TEMP; Start 01/20/19 at 11:00 Amlodipine Besylate (Norvasc) 10 mg DAILY PO Last administered on 01/27/19 08:47; Admin Dose 10 MG; Start 01/21/19 at 09:00 Aspirin (Halfprin) 81 mg DAILY PO Last administered on 01/27/19 08:47; Admin Dose 81 MG; Start 01/21/19 at 09:00 Cyclosporine (Restasis) 1 drop Q12 BOTH EYES Last administered on 01/27/19 08:46; Admin Dose 1 DROP; Start 01/20/19 at 21:00 Donepezil HCl (Aricept) 5 mg DAILY PO Last administered on 01/27/19 08:46; Admin Dose 5 MG; Start 01/21/19 at 09:00 Pentoxifylline (Trental) 400 mg WITH MEALS PO Last administered on 01/27/19 08:47; Admin Dose 400 MG; Start 01/20/19 at 18:00 Ranolazine (Ranexa) 500 mg Q12 PO Last administered on 01/27/19 08:47; Admin Dose 500 MG; Start 01/20/19 at 21:00 Tamsulosin HCl (Flomax) 0.4 mg DAILY PO Last administered on 01/27/19 08:47; Admin Dose 0.4 MG; Start 01/21/19 at 09:00 Albuterol/ Ipratropium (Duoneb) 3 ml Q2H RESP THERAPY PRN HHN SHORTNESS OF BREATH Last administered on 01/21/19 22:56; Admin Dose 3 ML; Start 01/20/19 at 13:00 Arformoterol Tartrate (Brovana (Neb)) 2 ml BID NEB Last administered on 01/27/19 08:07; Admin Dose 2 ML; Start 01/20/19 at 21:00 Pantoprazole (Protonix Tab) 40 mg DAILY@06 PO Last administered on 01/27/19 06:40; Admin Dose 40 MG; Start 01/22/19 at 06:00 Levalbuterol (Xopenex Neb) 1.25 mg Q4H RESP THERAPY HHN Last administered on 01/27/19 08:06; Admin Dose 1.25 MG; Start 01/21/19 at 23:30 Ipratropium [place] (Atrovent 0.02% (Neb)) 0.5 mg Q4H RESP THERAPY HHN Last administered on 01/27/19at 08:06; Admin Dose 0.5 MG; Start 01/22/19 at 01:00 Senna (Senokot) 2 tab BID PRN PO CONSTIPATION Last administered on 01/27/19at 06:40; Admin Dose 2 TAB; Start 01/25/19 at 23:30 Hydralazine HCl (Apresoline) 25 mg Q6 PRN PO ELEVATED BLOOD PRESSURE; Start 01/26/19 at 13:30 Metoprolol Succinate (Toprol Xl) 50 mg AM PO ; Start 01/28/19 at 09:00 Metoprolol Succinate (Toprol Xl) 25 mg HS PO ; Start 01/27/19 at 21:00 ANGELLA MOORE Jan 27, 2019 11:10
[2019-01-27] MEDS ORDERED: TIOT18CA INHALATION (11:33)
--- NOTE | 2019-01-27 11:34 | PDOCDIS ---
Discharge Instructions CONDITION [id number] Patient Condition: [id number] Good HOME CARE INSTRUCTIONS: [id number] Diet Instructions: [id number] Regular ACTIVITY: [id number] Activity Restrictions: [id number] Slowly Increase Activity FOLLOW UP/APPOINTMENTS Follow-up Plan FOLLOW UP WITH YOUR PCP IN 1-2 WEEKS, FOLLOW UP WITH DR SPEAR OF PULMONOLOGY MARC GLORIA Jan 27, 2019 11:34
--- NOTE | 2019-01-27 14:25 | PN ---
DATE: 01/27/2019 SUBJECTIVE: The patient complains about constipation. No other events noted. OBJECTIVE: VITAL SIGNS: Blood pressure is 158/94, pulse 78, respirations 20, temperature 98.0. HEENT: Head is normocephalic. NECK: Supple. HEART: Regular rate. LUNGS: Show diminished breath sounds at the base. ABDOMEN: Soft, nontender to palpation without rebound or guarding. EXTREMITIES: Negative for clubbing, cyanosis. No edema. DERMATOLOGIC: No rashes. MUSCULOSKELETAL: No joint effusion. NEUROLOGIC: No change in exam. MEDICATIONS: Have been reviewed. LABORATORY DATA: Have been reviewed. ASSESSMENT AND PLAN: 1. Nonoliguric acute kidney injury on top of chronic kidney disease stage III with previous baseline creatinine of 1.4 to 1.5 mg/dL. Etiology of acute kidney injury is secondary to hemodynamics, diure tic therapy. The patient's renal function has improved after being given a fluid challenge. At this point, continue current treatment plans, supportive care, renally dose all meds. 2. Anemia. Monitor hemoglobin and hematocrit levels. 3. Mineral bone disorder. Monitor calcium and phosphorus levels. 4. Acute hypoxemic respiratory failure secondary to chronic obstructive pulmonary disease exacerbati on and pneumonia. Continue current antibiotic regimen. Continue supplemental oxygen. Continue nebu lizer and antibiotic therapy. 5. History of diastolic heart failure. The patient is currently compensated. Continue to hold diur etic therapy. 6. Peripheral arterial disease. Continue medical management. 7. Hypertension. Continue current blood pressure regimen. 8. Constipation. Continue current bowel regimen. Dictated By: HECTOR BERMUDEZ DO NR/NTS Conf#: [id number] DID#: [id number] CC: JAE DURAN MD; ELISABET MARCANO MD;*EndCC*
--- NOTE | 2019-01-27 14:50 | DS ---
Date/Time of Note Date/Time of Note DATE: 01/27/19 TIME: 14:43 Discharge Summary Admission/Discharge Info Admit Date/Time January 20, 2019 at 09:01 Discharge Date/Time January 27, 2019 Discharge Diagnosis 83-year-old male with comorbidities including hypertension, CKD, peripheral artery disease, and COPD who came to the emergency room with chief complaint of dyspnea with evidence of underlying hypoxia and pulmonary infiltrates, who was admitted to inpatient setting for further treatment and evaluation 1. Acute hypoxemic and hypercapnic respiratory failure-improved -Status post diuresis and breathing treatments -Etiology multifactorial in origin including underlying bilateral pleural effusions as well as COPD DC with supplemental oxygen -Continue inhaled bronchodilators and have prescribed Spiriva Status post diuresis, no further Lasix secondary to renal failure -Pulmonology following 2. Bilateral pleural effusions. -Status post diuresis 3. CHF exacerbation, acute on chronic systolic dysfunction. -Status post diuretic therapy -Cardiology following. 4. Peripheral artery disease. -Continue aspirin and pentoxifylline. 5. Hypertension. -Continue antihypertensives. -Hold ARBs because of worsening renal function. 6. Acute on chronic kidney disease -Renal function improving after fluids and cessation of diuretics -Hold nephrotoxic medications -Nephrology following. 7. COPD -Continue the patient's inhalers -Status post IV steroids -DC with Spiriva -treasury manager to arrange for home O2 and PT Patient Condition: Good Hospital Course Patient is an 83-year-old male with comorbidities including hypertension, CKD, peripheral artery disease, and COPD who came to the emergency room with chief complaint of dyspnea with evidence of underlying hypoxia and pulmonary infiltrates, who was admitted to inpatient setting for further treatment and evaluation. Patient had no evidence of both hypoxemic and hypercapnic respiratory failure secondary to pleural effusions as well as COPD. Patient received breathing treatments, IV steroids and diuretics for bilateral pleural effusions. Patient's creatinine did increase secondary to overdiuresis and Lasix was held with improvement of renal function. Patient did require supplemental oxygen which was arranged by embedded case manager. Patient was stable for DC to home with home health, on the day of discharge patient vitals, labs of exam are stable. Home Meds Active Scripts Tiotropium [place]* (Spiriva*) 18 Mcg Cap.w.dev, 1 CAP INHALATION DAILY, #30 CAP 1 Refill Prov:MARC GLORIA 01/27/19 Reported Medications Naproxen* (Naproxen*) 500 Mg Tablet, 500 MG PO BID PRN for PAIN, TAB 01/20/19 Diclofenac Sodium* (Voltaren* Gel) 1% -100 Gm Gel, 2 GM TOP QID, #1 TUB 01/20/19 Budesonide-Formoterol Fumarate* (Symbicort*) 160-4.5 Hfa.aer.ad, 2 PUFF INHALATION BID, #1 EACH 01/20/19 Cyclosporine (RESTASIS) 1 Each Droperette, 1 DROP BOTH EYES Q12, #1 BOX 01/20/19 Ranolazine* (Ranexa*) 500 Mg Tab.sr.12h, 500 MG PO Q12, TAB 01/20/19 Tamsulosin Hcl* (Flomax*) 0.4 Mg Cap.er.24h, 0.4 MG PO DAILY, CAP 01/20/19 Linaclotide (LINZESS) 145 Mcg Capsule, 145 MCG PO DAILY, #30 CAP 01/20/19 Nebivolol Hcl* (Bystolic*) 10 Mg Tablet, 10 MG PO DAILY, #30 TAB 01/20/19 Omeprazole* (Omeprazole*) 20 Mg Capsule.dr, 20 MG PO DAILY, #30 CAP 01/20/19 Donepezil* (Aricept*) 5 Mg Tablet, 5 MG PO DAILY, TAB 01/20/19 Meloxicam* (Meloxicam*) 7.5 Mg Tablet, 7.5 MG PO DAILY, #30 TAB 01/20/19 Aspirin (Low Dose Aspirin) 81 Mg Tablet.dr, 81 MG PO DAILY, #30 TAB 01/20/19 Amlodipine Besylate* (Amlodipine Besylate*) 10 Mg Tablet, 10 MG PO DAILY, #30 TAB 01/20/19 Metoprolol Succinate* (Toprol XL*) 50 Mg Tab.er.24h, 50 MG PO DAILY, #30 TAB 01/20/19 Pentoxifylline* (Pentoxifylline*) 400 Mg Tablet.sa, 400 MG PO WITH MEALS, TAB 01/20/19 Discontinued Reported Medications Losartan Potassium* (Losartan Potassium*) 100 Mg Tablet, 100 MG PO DAILY, TAB 01/20/19 Omeprazole* (Omeprazole*) 20 Mg Capsule.dr, 20 MG PO DAILY, #30 CAP 01/30/17 Meloxicam* (Meloxicam*) 7.5 Mg Tablet, 7.5 MG PO DAILY, #30 TAB 01/30/17 Metoprolol Succinate* (Toprol XL*) 50 Mg Tab.er.24h, 50 MG PO DAILY, #30 TAB 01/30/17 Pentoxifylline* (Pentoxifylline*) 400 Mg Tablet.sa, 400 MG PO TID, TAB 01/30/17 Olmesartan-Hydrochlorothiazide (Benicar HCT) 20-12.5 Mg Tablet, 2 TAB PO DAILY, #30 TAB 01/30/17 Discontinued Scripts Acetaminophen* (Tylophen*) 500 Mg Capsule, 1 CAP PO Q6H PRN for PAIN AND OR ELEVATED TEMP, #30 CAP Prov:MARIBEL DUVALL PA-C 03/08/18 Tramadol HCl (Tramadol HCl) 50 Mg Tablet, 50 MG PO Q6 PRN for PAIN, #20 TAB Prov:MARIBEL DUVALL PA-C 03/08/18 Meloxicam* (Meloxicam*) 7.5 Mg Tablet, 7.5 MG PO DAILY, #30 TAB Prov:CAPRICE LIVINGSTON PA-C 02/03/18 Follow-up Plan FOLLOW UP WITH YOUR PCP IN 1-2 WEEKS, FOLLOW UP WITH DR SPEAR OF PULMONOLOGY Primary Care Provider Not On Staff Doctor Time spent on discharge: > 30 minutes MARC GLORIA Jan 27, 2019 14:50
[2019-01-27] MEDS ORDERED: METOPROLOL (XL) 25 MG TAB PO SCH (21:00)
[2019-01-28] MEDS ORDERED: METOPROLOL (XL) 50 MG TAB PO SCH (09:00)
== END 2019-01-27 18:12 | disposition home health service (06) | DRG 190 ==
LOC: E/R 06:52 → 2NE 09:01 → EDBEDREQSVC 13:45 → EDBEDREQ 13:45 → 6WM 01-22 00:10
PROVIDERS: ADMIT Internal Medicine; ATTEND Internal Medicine
PROC: 5A09457 Assistance with Respiratory Ventilation, 24-96 Consecutive Hours, Continuous Positive Airway Pressure (ICD-10-PCS; principal; 2019-01-22)
DX: J44.0 Chronic obstructive pulmonary disease with (acute) lower respiratory infection (principal); J96.01 Acute respiratory failure with hypoxia; I50.23 Acute on chronic systolic (congestive) heart failure; J96.02 Acute respiratory failure with hypercapnia; I13.0 Hypertensive heart and chronic kidney disease with heart failure and stage 1 through stage 4 chronic kidney disease, or unspecified chronic kidney disease; N17.9 Acute kidney failure, unspecified; J44.1 Chronic obstructive pulmonary disease with (acute) exacerbation; I73.9 Peripheral vascular disease, unspecified; N40.0 Benign prostatic hyperplasia without lower urinary tract symptoms; N18.3 Chronic kidney disease, stage 3 (moderate); K59.00 Constipation, unspecified; Z87.891 Personal history of nicotine dependence
CPT/HCPCS: 36600; 71045; 71250; 80048; 80053; 80061; 81003; 82043; 82550; 82553; 82803; 82962; 83036; 83735; 83880; 84100; 84145; 84155; 84300; 84484; 85025; 85610; 85730; 93005; 94640; 94644; 94660; 94664; 96374; 96375; 97161; A4310; J0456; J0696; J1940; J2060; J2405; J2920; J2930; J7030

== ENCOUNTER 2019-02-03 11:08 | Inpatient (IN) | payer MEDICARE, OTHER ==
[~2019-02-03] VITALS: Ht 160 cm; Wt 52.8 kg
[~2019-02-03 11:08] MED LIST changes: -ACET500C5 PO; +AMLO-147 PO; +ASPI81TA52 PO; -BENHCT2012 PO; +BUDE6HFA INHALATION; +CYCL1DRO BOTH EYES; +DICL100G37 TOP; +DONE5TAB53 PO; +LINA145C PO; +NAPR-688 PO; +NEBI10TA2 PO; +RANO500T2 PO; +TAMS-14 PO; +TIOT18CA INHALATION; -TRAM50TA2 PO
--- NOTE | 2019-02-03 11:16 | ERD ---
ER Documentation Chief Complaint Chief Complaint ap/sob/cp HPI The patient is a 83-year-old male, presenting to the ER because of intermittent abdominal pain for 3 days with dysuria he had similar symptoms previously, denies fever or chills, neck pain,. He complains of intermittent chest pain, dyspnea, denies vomiting. He does use oxygen continuously at home, used to smoke until 3 months ago, was recently discharged from the hospital about a week ago for CHF Past medical history: Hypertension, PAD, CKD, COPD, history of colon cancer status post surgery Past surgical history: Prostate surgery, details unclear ROS All systems reviewed and are negative except as per history of present illness. Medications Home Meds Active Scripts Tiotropium [place]* (Spiriva*) 18 Mcg Cap.w.dev, 1 CAP INHALATION DAILY, #30 CAP 1 Refill Prov:JUANIMARC 01/27/19 Reported Medications Naproxen* (Naproxen*) 500 Mg Tablet, 500 MG PO BID PRN for PAIN, TAB 01/20/19 Diclofenac Sodium* (Voltaren* Gel) 1% -100 Gm Gel, 2 GM TOP QID, #1 TUB 01/20/19 Budesonide-Formoterol Fumarate* (Symbicort*) 160-4.5 Hfa.aer.ad, 2 PUFF INHALA TION BID, #1 EACH 01/20/19 Cyclosporine (RESTASIS) 1 Each Droperette, 1 DROP BOTH EYES Q12, #1 BOX 01/20/19 Ranolazine* (Ranexa*) 500 Mg Tab.sr.12h, 500 MG PO Q12, TAB 01/20/19 Tamsulosin Hcl* (Flomax*) 0.4 Mg Cap.er.24h, 0.4 MG PO DAILY, CAP 01/20/19 Linaclotide (LINZESS) 145 Mcg Capsule, 145 MCG PO DAILY, #30 CAP 01/20/19 Nebivolol Hcl* (Bystolic*) 10 Mg Tablet, 10 MG PO DAILY, #30 TAB 01/20/19 Omeprazole* (Omeprazole*) 20 Mg Capsule.dr, 20 MG PO DAILY, #30 CAP 01/20/19 Donepezil* (Aricept*) 5 Mg Tablet, 5 MG PO DAILY, TAB 01/20/19 Meloxicam* (Meloxicam*) 7.5 Mg Tablet, 7.5 MG PO DAILY, #30 TAB 01/20/19 Aspirin (Low Dose Aspirin) 81 Mg Tablet.dr, 81 MG PO DAILY, #30 TAB 01/20/19 Amlodipine Besylate* (Amlodipine Besylate*) 10 Mg Tablet, 10 MG PO DAILY, #30 TAB 01/20/19 Metoprolol Succinate* (Toprol XL*) 50 Mg Tab.er.24h, 50 MG PO DAILY, #30 TAB 01/20/19 Pentoxifylline* (Pentoxifylline*) 400 Mg Tablet.sa, 400 MG PO WITH MEALS, TAB 01/20/19 Discontinued Reported Medications Losartan Potassium* (Losartan Potassium*) 100 Mg Tablet, 100 MG PO DAILY, TAB 01/20/19 Allergies Allergies: Coded Allergies: No Known Drug Allergies (Verified Allergy, Mild, 02/03/19) PMhx/Soc History of Surgery: Yes (prostate removal in 2008) Anesthesia Reaction: No Hx Neurological Disorder: No Hx Respiratory Disorders: No Hx Cardiac Disorders: No Hx Psychiatric Problems: No Hx Miscellaneous Medical Probl: Yes (Please see EMR) Hx Alcohol Use: No Hx Substance Use: No Hx Tobacco Use: No Physical Exam Vitals Vital Signs Date Temp Pulse Resp B/P (MAP) Pulse Ox O2 O2 Flow FiO2 Time Delivery Rate 02/03/19 98.0 104 18 140/73 99 Nasal 2.0 12:30 (95) Cannula 02/03/19 98.0 118 20 143/93 95 11:14 (110) Physical Exam Const: No acute distress. Head: Atraumatic. Eyes: Normal Conjunctiva. ENT: Normal External Ears, Nose and Mouth. Neck: Full range of motion. No meningismus. Resp: Bibasilar crackle Cardio: Regular tachycardic Abd: Soft, non distended, normal bowel sounds, non tender. Skin: No petechiae or rashes. Back: No midline or flank tenderness. Ext: No cyanosis, or edema. Neur: Awake and alert. No focal deficit Psych: Normal Mood and Affect. Result Diagram: 02/03/19 1207 02/03/19 1207 Results 24 hrs Laboratory Tests Test 02/03/19 12:07 02/03/19 13:51 White Blood Count 15.0 10^3/ul Red Blood Count 3.97 10^6/ul Hemoglobin 11.5 g/dl Hematocrit 35.5 % Mean Corpuscular Volume 89.4 fl Mean Corpuscular Hemoglobin 29.0 pg Mean Corpuscular Hemoglobin Concent 32.4 g/dl Red Cell Distribution Width 13.5 % Platelet Count 256 10^3/UL Mean Platelet Volume 9.8 fl Immature Granulocytes % 0.700 % Neutrophils % 88.0 % Lymphocytes % 4.3 % Monocytes % 6.0 % Eosinophils % 0.5 % Basophils % 0.5 % Nucleated Red Blood Cells % 0.0 /100WBC Immature Granulocytes # 0.100 10^3/ul Neutrophils # 13.2 10^3/ul Lymphocytes # 0.7 10^3/ul Monocytes # 0.9 10^3/ul Eosinophils # 0.1 10^3/ul Basophils # 0.1 10^3/ul Nucleated Red Blood Cells # 0.0 10^3/ul Sodium Level 137 mmol/L Potassium Level 5.6 mmol/L Chloride Level 102 mmol/L Carbon Dioxide Level 21 mmol/L Anion Gap 14 Blood Urea Nitrogen 89 mg/dl Creatinine 9.67 mg/dl Est Glomerular Filtrat Rate mL/min mL/min Glucose Level 97 mg/dl Calcium Level 8.9 mg/dl Total Bilirubin 0.2 mg/dl Direct Bilirubin 0.00 mg/dl Indirect Bilirubin 0.2 mg/dl Aspartate Amino Transf (AST/SGOT) 24 IU/L Alanine Aminotransferase (ALT/SGPT) 18 IU/L Alkaline Phosphatase 98 IU/L Troponin I 0.036 ng/ml B-Type Natriuretic Peptide 4990 PG/ML Total Protein 7.1 g/dl Albumin 3.6 g/dl Globulin 3.50 g/dl Albumin/Globulin Ratio 1.02 Lipase 91 U/L Bedside Urine pH (LAB) 5.0 Bedside Urine Protein (LAB) 1+ Bedside Urine Glucose (UA) Negative Bedside Urine Ketones (LAB) Negative Bedside Urine Blood Trace-intact Bedside Urine Nitrite (LAB) Negative Bedside Urine Leukocyte Esterase (L 1+ Current Medications Medications Dose Sig/Cayla Start Time Status Last (Trade) Ordered Route PRN Stop Time Admin Dose Reason Admin Vancomycin 250 ml @ ONCE ONCE 02/03/19 HCl 125 mls/hr IVPB 13:30 02/03/19 15:29 Cefepime HCl 50 ml @ ONCE ONCE 02/03/19 DC 100 mls/hr IVPB 13:30 02/03/19 13:59 Aspirin 162 mg ONCE ONCE 02/03/19 DC (Aspirin) PO 13:30 02/03/19 13:31 Sodium 30 gm ONCE ONCE 02/03/19 DC Polystyrene PO 13:30 Sulfonate 02/03/19 13:31 (Kayexelate 15 Gm Kit (Powder+Sorbi zeyad)) Dextrose 50 ml ONCE ONCE 02/03/19 DC (D50w IV 13:30 Syringe) 02/03/19 13:31 Insulin 5 unit ONCE STAT 02/03/19 DC Human IVP 13:18 Regular 02/03/19 13:23 (Humulin R) Dextrose ONCE PRN 02/03/19 (D50w IV DECREASED 13:30 Syringe) GLUCOSE 02/03/19 23:00 Albuterol 5 mg ONCE STAT 02/03/19 DC (Proventil HHN 13:18 0.083% (Neb)) 02/03/19 13:25 Procedures/MDM EKG: Read by emergency physician Rate/Rhythm: Sinus tachycardia 119 beats/min QRS, ST, T-waves: No ST elevation, septal Q waves, lateral T abnormality Impression: Abnormal EKG [place] [id number] Radiology Main Line: [phone] DIAGNOSTIC IMAGING REPORT Patient: MITCHEL JENKINS : 1935 Age: 83 Sex: M MR #: [id number] DOS: 02/03/19 1130 Ordering MD: STONE GRAVES MD Location: E/R Room/Bed: PROCEDURE: XR Chest. CLINICAL INDICATION: Abdominal pain TECHNIQUE: Single portable view of the chest was obtained COMPARISON: DR ORTEGA 01/25/2019 FINDINGS: The trachea is midline. The cardiac silhouette is enlarged and pulmonary vascularity are within normal limits. Right lower lobe infiltrates are noted. As a right-sided pleural effusion. Bilateral emphysematous changes. Atherosclerotic calcification of the aortic knob is identified.. IMPRESSION: 1. Cardiomegaly and atherosclerotic disease. 2. Bilateral emphysematous changes. 3. Right lower lobe infiltrate and small right pleural effusion. Consider pneumonia in the appropriate clinical setting. 4. Resolution of left lower lobe infiltrate. RPTAT: AAPP Physician Cecilia Date Time Electronically viewed and signed by Physician Cecilia on 02/03/2019 12:11 JL/ CC: STONE GRAVES MD [id number] MEDICAL MAKING DECISION: The patient is a 83-year-old male, presenting with acute pneumonia, acute chest pain, acute hyperkalemia, acute cystitis. He was treated with vancomycin IV, cefepime IV acute pneumonia, aspirin 162 mg p.o. for acute chest pain, albuterol 5 mg nebulizer, Kayexalate 30 g p.o., 5 unit of regular insulin IV, 1 amp of D50 IV for acute hyperkalemia The differential diagnoses considered include but are not limited to ACS, asthma, COPD, pneumonia, pulmonary embolus, pleural effusion, congestive heart failure, cystitis, pyelonephritis. Critical Care: Time: 35 minutes excluding all billable procedures. Treatments/Evaluations: Close monitoring and treatment of unstable vital signs, cardiorespiratory, and neurologic status, while maintaining tight balance of fluid, respiratory, and cardiac interventions. Departure Diagnosis: Primary Impression: PNA (pneumonia) Additional Impressions: Chest pain Hyperkalemia UTI (urinary tract infection) Anemia Condition: Stable Comments I discussed the findings with the patient. I discussed the patient with the hospitalist, who was made aware of the lab, the treatment, the patient condit ion. The patient is admitted to Tel Disclaimer: Inadvertent spelling and grammatical errors are likely due to EHR/dictation software use and do not reflect on the overall quality of patient care. Also, please note that the electronic time recorded on this note does not necessarily reflect the actual time of the patient encounter. STONE GRAVES MD Feb 03, 2019 11:15
[2019-02-03] MEDS ORDERED: ALBUTEROL 0.083% (NEB) 2.5 MG/3 ML AMP HHN STA (13:18)
[2019-02-03] MEDS ORDERED: INSULIN REGULAR, HUMAN 100 UNIT/1 ML 3ML VIAL IVP STA (13:18)
[2019-02-03] MEDS ORDERED: SODIUM POLYSTYRENE 15 GM KIT (POWDER + SORBITOL) PO ONE (13:30)
[2019-02-03] MEDS ORDERED: ASPIRIN 81 MG TAB PO ONE (13:30)
[2019-02-03] MEDS ORDERED: DEXTROSE 50% 50 ML SYRINGE IV ONE (13:30)
[2019-02-03] MEDS ORDERED: DEXTROSE 50% 50 ML SYRINGE IV PRN (13:30)
[2019-02-03] MEDS ORDERED: CEFEPIME 1GM/50 ML (PMX) 50 ML IVPB ONE (13:30)
[2019-02-03] MEDS ORDERED: VANCOMYCIN 1 GM (PMX) 250 ML IVPB ONE (13:30)
[2019-02-03] MEDS ORDERED: ONDANSETRON 4 MG INJ IV PRN (15:30)
[2019-02-03] MEDS ORDERED: DOCUSATE SODIUM 100 MG CAP PO PRN (15:30)
[2019-02-03] MEDS ORDERED: NACL 0.9% 3 ML SYG IV SCH (15:30)
[2019-02-03] MEDS ORDERED: ACETAMINOPHEN 325 MG TAB PO PRN (15:30)
[2019-02-03] MEDS ORDERED: LEVALBUTEROL (NEB) 0.63 MG/3 ML AMP HHN PRN (15:30)
[2019-02-03] MEDS ORDERED: MAGNESIUM HYDROXIDE 30ML CUP PO PRN (15:30)
[2019-02-03] MEDS ORDERED: DEXTROSE 5%-0.45% NACL 1,000 ML IV SCH (16:00)
--- NOTE | 2019-02-03 16:06 | HP ---
Date/Time of Note Date/Time of Note DATE: 02/03/19 TIME: 15:45 Assessment/Plan VTE Prophylaxis SCD applied (from Nsg): Yes Pharmacological prophylaxis: heparin Lines/Catheters IV Catheter Type (from Nrsg): Saline Lock Assessment/Plan Assessment/Plan 1. Acute chest pain, rule out ACS - patient was recently inhouse and followed by Dr. Waters. Will consult given chest discomfort symptoms and sinus tachycardia - initial trop negative - recent ECHO from 10/2018 reveals EF 40-45% - supportive treatment - most likely secondary to right sided pneumonia 2. Right lower lobe pneumonia - given recent hospitalization, will treat for HCAP - no cough but will collect sputum if available - nebs PRN and broad spectrum antibiotics - on home O2 after prior discharge 3. MARTHA on CKD - possible prerenal vs postobstructive vs cardiorenal - Renal US from 10/2018 does show some renal disease - will give gentle fluids in setting of CHF - Nephrology consulted for further recommendations - avoid nephrotoxic agents 4. Systolic heart failure - elevated BNP noted but does not appear overloaded - CXR negative for pulmonary congestion and no peripheral edema appreciated - unable to d/c on Lasix given renal function during last admission 5. Hyperkalemia - treated in ED - monitor for improvement 6. Leukocytosis - most likely secondary to #2 7. BPH - on flomax - states has surgical intervention in past 8. COPD - continue O2 and neb tx 9. HTN - BP stable - continue home medications and adjust as needed 10. PAD - stable - seen by Dr. Waite in the past 11. Diet - renal/cardiac 12. Disposition - Admit to telemetry for workup for acute chest pain and worsening renal failure. Patient will be started on broad spectrum antibiotics for right lower lobe pneumonia seen on CXR. Result Diagram: 02/03/19 1207 02/03/19 1207 Results 24hrs Laboratory Tests Test 02/03/19 12:07 02/03/19 13:51 02/03/19 14:49 White Blood Count 15.0 #H Red Blood Count 3.97 L Hemoglobin 11.5 L Hematocrit 35.5 L Mean Corpuscular Volume 89.4 Mean Corpuscular Hemoglobin 29.0 Mean Corpuscular 32.4 Hemoglobin Concent Red Cell Distribution Width 13.5 Platelet Count 256 Mean Platelet Volume 9.8 Immature Granulocytes % 0.700 H Neutrophils % 88.0 H Lymphocytes % 4.3 L Monocytes % 6.0 Eosinophils % 0.5 Basophils % 0.5 Nucleated Red Blood Cells % 0.0 Immature Granulocytes # 0.100 H Neutrophils # 13.2 H Lymphocytes # 0.7 L Monocytes # 0.9 Eosinophils # 0.1 Basophils # 0.1 Nucleated Red Blood Cells # 0.0 Sodium Level 137 Potassium Level 5.6 H Chloride Level 102 Carbon Dioxide Level 21 Anion Gap 14 H Blood Urea Nitrogen 89 H Creatinine 9.67 H Est Glomerular Filtrat Rate mL/min Glucose Level 97 Calcium Level 8.9 Total Bilirubin 0.2 Direct Bilirubin 0.00 Indirect Bilirubin 0.2 Aspartate Amino Transf (AST/SGOT) 24 Alanine 18 Aminotransferase (ALT/SGPT) Alkaline Phosphatase 98 Troponin I 0.036 B-Type Natriuretic Peptide 4990 H Total Protein 7.1 Albumin 3.6 Globulin 3.50 H Albumin/Globulin Ratio 1.02 Lipase 91 Bedside Urine pH (LAB) 5.0 Bedside Urine Protein (LAB) 1+ H Bedside Urine Glucose (UA) Negative Bedside Urine Ketones (LAB) Negative Bedside Urine Blood Trace-intact H Bedside Urine Nitrite (LAB) Negative Bedside Urine Leukocyte Esterase 1+ H (L Bedside Glucose 117 HPI/ROS Admit Date/Time Admit Date/Time 02/03/19 Hx of Present Illness 83 yo M with PMH COPD, chronic kidney disease, peripheral artery disease, cardiomyopathy with EF 40-45%, and systolic congestive heart failure presented to ED with 3 days of worsening chest pain and diminished appetite. Patient was recently discharged on 01/27/19 following admission for left sided pneumonia and acute on chronic heart failure. Patient states he was doing well up until 3 days ago with onset of chest pain, nonradiating, not associated with shortness of breath but does admit to diaphoresis and poor PO intake. He has not had any PO intake given diminished appetite and hydration has been minimal as well. He has had diminished urinary output as well. Patient had moments of confusion during interview and continued to ask the same question multiple times. In the ED patient was found with hyperkalemia and given Kayexalate which he admits caused upset stomach. Patient continues to rub his abdominal area and grimace due to discomfort. Patient denies any fevers, chills, nausea, vomiting, cough, productive sputum, constipation, diarrhea, or LOC. ROS All 12 systems reviewed and pertinent positives as per HPI. All others negative. Constitutional: diaphoresis, fatigue; No chills, No nausea Eyes: No discharge ENT: No congestion Respiratory: No cough, No shortness of breath, No sputum, No wheezing Cardiovascular: chest pain; No edema, No lightheadedness, No palpitations Gastrointestinal: pain, decreased appetite; No constipation, No diarrhea, No nausea, No vomiting Genitourinary: other (diminished output) Musculoskeletal: no complaints Skin: No laceration, No rash Neurologic: confusion; No dizziness, No focal-weakness, No syncope Endocrine: no complaints Lymphatic: no complaints Psychological: nl mood/affect Immunologic: no complaints PMH/Family/Social Past Medical History Medical History: congestive heart failure, hypertension, renal disease, other (COPD, CM with EF 40-45%, peripheral artery disease) Medications Current Medications Dextrose (D50w Syringe) ONCE PRN IV DECREASED GLUCOSE; Start 02/03/19 at 13:30; Stop 02/03/19 at 23:00 Amlodipine Besylate (Norvasc) 10 mg DAILY PO ; Start 02/04/19 at 09:00; Status UNV Aspirin (Halfprin) 81 mg DAILY PO ; Start 02/04/19 at 09:00; Status UNV Cyclosporine (Restasis) 1 drop Q12 BOTH EYES ; Start 02/03/19 at 21:00; Status UNV Diclofenac Sodium (Voltaren 1% Gel) 2 gm QID TP ; Start 02/03/19 at 17:00; Status UNV Donepezil HCl (Aricept) 5 mg DAILY PO ; Start 02/04/19 at 09:00; Status UNV Metoprolol Succinate (Toprol Xl) 50 mg DAILY PO ; Start 02/04/19 at 09:00; Status UNV Miscellaneous Medication (Bystolic) 10 mg DAILY PO ; Start 02/04/19 at 09:00; Status UNV Pentoxifylline (Trental) 400 mg WITH MEALS PO ; Start 02/03/19 at 18:00; Status UNV Ranolazine (Ranexa) 500 mg Q12 PO ; Start 02/03/19 at 21:00; Status UNV Tamsulosin HCl (Flomax) 0.4 mg DAILY PO ; Start 02/04/19 at 09:00; Status UNV Tiotropium [place] (Spiriva) 1 inh DAILY INH ; Start 02/04/19 at 09:00; Status UNV Miscellaneous Information 2 puff BID INHALATION ; Start 02/03/19 at 21:00; Status UNV Miscellaneous Information 20 mg DAILY PO ; Start 02/04/19 at 09:00; Status UNV Levalbuterol (Xopenex Neb) 0.63 mg Q4H RESP THERAPY PRN HHN shortness of breath; Start 02/03/19 at 15:30; Status UNV IV Flush (NS 3 ml) 3 ml PER PROTOCOL IV ; Start 02/03/19 at 15:30; Status UNV Ondansetron HCl (Zofran Inj) 4 mg Q6H PRN IV NAUSEA/VOMITING; Start 02/03/19 at 15:30; Status UNV Acetaminophen (Tylenol Tab) 650 mg Q6H PRN PO .PAIN 1-3 OR TEMP; Start 02/03/19 at 15:30; Status UNV Docusate Sodium (Colace) 100 mg Q12H PRN PO .CONSTIPATION; Start 02/03/19 at 15:30; Status UNV Magnesium Hydroxide (Milk Of Mag) 30 ml DAILY PRN PO .CONSTIPATION; Start 02/03/19 at 15:30; Status UNV Heparin Sodium (Porcine) (Heparin (5000 Units/1ml)) 5,000 unit Q12 SC ; Start 02/03/19 at 21:00; Status UNV Cefepime HCl 50 ml @ 100 mls/hr Q12 IV ; Start 02/03/19 at 21:00; Status UNV Ipratropium [place] (Atrovent 0.02% (Neb)) 0.5 mg Q6HWA RESP THERAPY NEB ; Start 02/03/19 at 20:00; Status UNV Coded Allergies: No Known Drug Allergies (Verified Allergy, Mild, 02/03/19) Past Surgical History Past Surgical Hx: other (TURP, abdominal surgery, LLE procedure) Family History Significant Family History: no pertinent family hx Social History Alcohol Use: none Smoking Status: Former smoker Drug Use: none Exam/Review of Systems Vital Signs Vitals Vital Signs Date Temp Pulse Resp B/P (MAP) Pulse Ox O2 O2 Flow FiO2 Time Delivery Rate 02/03/19 98.0 110 16 135/73 99 Nasal 2.0 14:30 (93) Cannula Exam Exam General: Pleasant elderly [place] gentlemen, distress due to abdominal discomfort. periods of confusion HEENT: NC/AT. PERRL. EOM intact Neck: supple, no JVD Chest: nontender CVS: S1, S2, regular rhythm, tachycardia, no murmurs Lungs: Coarse breath sounds at bases. no wheezing appreciated Abd: soft, tender diffusely, mildly distended. no rebound or guarding. bowel sounds present diffusely Ext: moving all extremities. no cyanosis, clubbing, or edema Skin: warm, dry. no rashes or lesions appreciated Additional Comments Home medications reviewed PROCEDURE: XR Chest. CLINICAL INDICATION: Abdominal pain TECHNIQUE: Single portable view of the chest was obtained COMPARISON: DR ORTEGA 01/25/2019 FINDINGS: The trachea is midline. The cardiac silhouette is enlarged and pulmonary vascularity are within normal limits. Right lower lobe infiltrates are noted. As a right-sided pleural effusion. Bilateral emphysematous changes. Atherosclerotic calcification of the aortic knob is identified.. IMPRESSION: 1. Cardiomegaly and atherosclerotic disease. 2. Bilateral emphysematous changes. 3. Right lower lobe infiltrate and small right pleural effusion. Consider pneumonia in the appropriate clinical setting. 4. Resolution of left lower lobe infiltrate. RPTAT: AAPP Physician Cecilia Date Time Electronically viewed and signed by Physician Cecilia on 02/03/2019 12:11 JAE DURAN MD Feb 03, 2019 16:06
[2019-02-03] MEDS: DICLOFENAC SODIUM 1% GEL 100 GM TUBE TP SCH (17:00)
--- NOTE | 2019-02-03 18:45 | CONS ---
DATE OF ADMISSION: 02/03/2019 DATE OF CONSULTATION: 02/03/2019 TYPE OF CONSULTATION: Nephrology. REASON FOR CONSULTATION: Acute kidney injury. PHYSICIAN REQUESTING CONSULT: Chitra Campuzano MD. HISTORY OF PRESENT ILLNESS: This is an 83-year-old male with a past medical history of chronic kidne y disease with previous baseline creatinines around 1.5 mg/dL, history of hypertension, history of pe ripheral arterial disease, history of COPD, history of cardiomyopathy, history of BPH, who initially presented to [facility] approximately 1 week ago with symptoms of shortness of kat th. The patient at that time had a COPD exacerbation. He was treated. Additionally, the patient sawyer d acute kidney injury secondary to diuretic use. The patient's kidney function improved with IV hydr ation. The patient was subsequently discharged home and now presents back to [facility] with worsening chest pain, decreased oral intake. The patient stated 3 days ago he started hav ing chest pain, nonradiating, not associated with shortness of breath. The patient had poor oral int lizzie. He denies any hemoptysis or hematemesis. The patient came to the emergency room for evaluation . Upon arrival, the patient was found to be in acute kidney injury, was hyperkalemic and short of br eath. In the emergency room, the patient had a chest x-ray which showed evidence of infiltrate. The patient was started on IV antibiotics. In terms of patient's renal history, on admission, the patient had a creatinine of 9.67 mg/dL, most r ecently the patient's last creatinine was 2.0 mg/dL. During this time, as stated above, the patient has poor oral intake. Denied any decrease in urinary output. Denies any hematuria, any rashes, any frothy urine. PAST MEDICAL HISTORY: As stated above, history of chronic kidney disease stage III/IV, history of hy pertension, history of peripheral arterial disease, history of COPD, history of cardiomyopathy, histo ry of BPH, history anemia. PAST SURGICAL HISTORY: The patient is status post lower extremity surgery, status post abdominal rebecca pattie, status post prostate surgery. FAMILY HISTORY: No family history of kidney disease. SOCIAL HISTORY: Former smoker. MEDICATIONS: The patient's medications have been reviewed. REVIEW OF SYSTEMS: A 14-point review of system was conducted. Pertinent positives stated in HPI, ot herwise negative. PHYSICAL EXAMINATION: VITAL SIGNS: Blood pressure is 112/76, respiration 18, pulse 80, temperature 98.6. HEENT: Head is normocephalic. NECK: Supple. The patient's is flat. HEART: Regular rate. LUNGS: Show diminished breath sounds at the base. ABDOMEN: Soft, nontender to palpation without rebound or guarding. EXTREMITIES: Negative for clubbing, cyanosis. No edema. DERMATOLOGIC: No rashes. MUSCULOSKELETAL: No joint effusion. NEUROLOGIC: No focal deficits. LABORATORY DATA: Has been reviewed. IMAGING STUDIES: Have been reviewed. URINALYSIS: Reviewed. ASSESSMENT AND PLAN: This is an 83-year-old male who presents with: 1. Nonoliguric acute kidney injury on top of chronic kidney disease stage III/IV with a previous [facility] creatinine of 1.5 to 2.0 mg/dL. Etiology of acute kidney injury is likely secondary to volume depletion, possible tubular injury. Lower suspicion for acute glomerulonephritis or vasculitis given patient's clinical presentation. Plan at this point is to check UA with microanalysis, check urine electrolytes. We will quantify any proteinuria. We will also check a renal ultrasound to rule out o bstruction as the patient has a history of benign prostatic hypertrophy. We will start the patient o n IV hydration. We will monitor volume status closely as the patient has underlying history of conge stive heart failure. Otherwise, continue supportive care, renally dose meds, avoid nephrotoxins. If patient's renal function does not show significant improvement in the next 24 to 48 hours, would con traffic control specialist starting renal replacement therapy. 2. Hyperkalemia. Etiology is secondary to acute kidney injury. The patient is status post Kayex[place] te and insulin. We will continue to monitor closely. Continue with low-potassium diet. 3. Anemia. Monitor hemoglobin and hematocrit levels. 4. Mineral bone disorder. Monitor calcium and phosphatase levels. 5. Sepsis secondary to pneumonia. Continue current antibiotic regimen. 6. Acute chest pain, etiology is unclear. The patient needs to be ruled out for acute coronary synd eplon. Check serial troponins. Continue medical management. Follow up with cardiology. Other etiol ogies may be musculoskeletal, maybe secondary to pneumonia. 7. History of systolic heart failure. The patient appears hypovolemic at this time. We will contin ue IV fluids, monitor volume status closely. 8. Benign prostatic hypertrophy. Continue Flomax. 9. Chronic obstructive pulmonary disease. Continue current nebulizers. 10. Hypertension. Blood pressures are stable. Continue to monitor. 11. Peripheral arterial disease. Continue medical management. Follow up with vascular surgery. Thank you, Dr. Campuzano, for this interesting consult. It will be a pleasure to follow patient with yo u throughout the hospital course. Dictated By: HECTOR BERMUDEZ DO NR/BRISEIDA Conf#: [id number] DID#: [id number]
[2019-02-03] MEDS: SOD CHLORIDE 0.9% 1,000 ML IV SCH (19:20)
[2019-02-03] MEDS: morphine 2 MG INJ IV PRN (19:20)
[2019-02-03] MEDS ORDERED: IPRATROPIUM (NEB) 0.5 MG/2.5 ML AMP NEB SCH (20:00)
[2019-02-03] MEDS ORDERED: NON-FORMULARY/PATIENT OWN MED (Budesonide-Formoterol Fumarate* (Symbicort*) 2 PUFF) INHALATION SCH (21:00)
[2019-02-03] MEDS: CYCLOSPORINE 0.05% OPH DROPERETTE BOTH EYES SCH (21:38)
[2019-02-03] MEDS: PENTOXIFYLLINE (SR) 400 MG TAB PO SCH (21:38)
[2019-02-03] MEDS: RANOLAZINE (SR) 500 MG TAB PO SCH (21:38)
[2019-02-03] MEDS: HEPARIN 5,000 UNIT/1 ML VIAL SC SCH (21:38)
[2019-02-03] MEDS: ARFORMOTEROL TARTRATE 15MCG/2 ML AMP INH SCH (22:00)
[2019-02-03] MEDS: BUDESONIDE (NEB) 0.5MG/2ML AMP INH SCH (22:00)
[2019-02-03 23:50] VITALS: Ht 160 cm; Wt 52.8 kg
[2019-02-04] VITALS (9 sets, daily range): BP systolic 132–161; BP diastolic 69–80; PULSE 96–116; RESP 18–24
[2019-02-04] MEDS: SOD CHLORIDE 0.9% 1,000 ML IV SCH ×3 (03:30→23:19)
[2019-02-04] MEDS ORDERED: PANTOPRAZOLE (EC) 40 MG TAB PO SCH (06:00)
[2019-02-04] MEDS ORDERED: ALBUTEROL 0.083% (NEB) 2.5 MG/3 ML AMP HHN STA (07:12)
[2019-02-04] MEDS ORDERED: INSULIN REGULAR, HUMAN 100 UNIT/1 ML 3ML VIAL IVP STA ×2 (07:13→11:42)
[2019-02-04] MEDS ORDERED: DEXTROSE 50% 50 ML SYRINGE IV PRN (07:30)
[2019-02-04] MEDS: PENTOXIFYLLINE (SR) 400 MG TAB PO SCH ×3 (08:00→18:00)
[2019-02-04] MEDS: BUDESONIDE (NEB) 0.5MG/2ML AMP INH SCH ×2 (08:19→20:22)
--- NOTE | 2019-02-04 08:34 | PN ---
DATE: 02/04/2019 SUBJECTIVE: Overnight, the patient has had minimal to no urinary output. No other acute events note d. The patient, however, did have black stools. OBJECTIVE: VITAL SIGNS: Blood pressure is 132/71, respiration 24, pulse 107, temperature 97.5. HEENT: Head is normocephalic. NECK: Supple. HEART: Regular rate. LUNGS: Show diminished breath sounds at the base. ABDOMEN: Soft, nontender to palpation without rebound or guarding. EXTREMITIES: Negative for clubbing, cyanosis. No edema. DERMATOLOGIC: No rashes. MUSCULOSKELETAL: No joint effusion. NEUROLOGIC: No change in exam. MEDICATIONS: Have been reviewed. LABORATORY DATA: Has been reviewed. IMAGING STUDIES: Have been reviewed. ASSESSMENT AND PLAN: This is an 83-year-old male who presents with: 1. Oligoanuric acute kidney injury with previous baseline creatinine 2.0 mg/dL. Etiology of acute k idney injury is worrisome for obstructive uropathy. The patient's renal ultrasound shows markedly di stended bladder and mild bilateral hydronephrosis. Other possibilities such as a tubular injury are considerations. Recommendation at this point is to place a STAT Emerson catheter. If the patient has no significant urinary output, the patient will likely require renal replacement therapy given his ra pidly declining renal function and ongoing hypokalemia. Will repeat a renal panel in 2 hours. If th ere is no significant improvement in renal function after Emerson catheter placement and/or if there is no significant urinary output, we will proceed with dialysis. 2. Hyperkalemia, etiology secondary to acute kidney injury. Plan is to have a Emerson catheter placem ent to see if there is evidence of obstruction. If no significant urinary output and the patient's p otassium levels cannot be corrected, will initiate renal replacement therapy. We will otherwise chemo t the patient with albuterol, IV insulin, D50. Continue IV fluids. Will continue Kayexalate. Monit or closely. 3. Metabolic acidosis secondary to acute kidney injury. Continue to monitor. Continue to check an ABG. 4. Mineral bone disorder. The patient is hyperphosphatemic, hypercalcemic secondary to acute kidney injury. We will continue to monitor. 5. Anemia with drop in hemoglobin and hematocrit levels. Unclear if there is Gastrointestinal bleed . Continue to monitor. The patient may require blood transfusion. Monitor serial hemoglobin levels closely. 6. Sepsis secondary to pneumonia. Continue current antibiotic regimen. 7. Acute chest pain, etiology unclear, possible for acute coronary syndrome. Continue to monitor se rial troponins. 8. History of . The patient is currently compensated. Continue to monitor. 9. Benign prostatic hypertrophy with possible uropathy as stated above. Continue Flomax. Lyle ce Emerson catheter STAT. 10. History of chronic obstructive pulmonary disease. Continue nebulizers, supplemental oxygen. 11. Hypertension. Blood pressures are stable. Continue to monitor. 12. Peripheral arterial disease. Continue medical management. Follow vascular surgery. Dictated By: HECTOR BERMUDEZ DO NR/NTS Conf#: [id number] DID#: [id number] CC: JAE DURAN MD;*End*
[2019-02-04] MEDS: CYCLOSPORINE 0.05% OPH DROPERETTE BOTH EYES SCH ×2 (08:44→20:52)
[2019-02-04] MEDS: TIOTROPIUM 18 MCG CAPSULE INHA DEV INH SCH (08:44)
[2019-02-04] MEDS: DONEPEZIL 5 MG TAB PO SCH (09:00)
[2019-02-04] MEDS: TAMSULOSIN (SR) 0.4 MG CAP PO SCH ×2 (09:00→20:52)
[2019-02-04] MEDS: RANOLAZINE (SR) 500 MG TAB PO SCH ×2 (09:00→20:52)
[2019-02-04] MEDS ORDERED: NEBIVOLOL 5 MG TAB PO SCH (09:00)
[2019-02-04] MEDS: ASPIRIN (EC) 81 MG TAB PO SCH (09:00)
[2019-02-04] MEDS: AMLODIPINE 10 MG TAB PO SCH (09:00)
[2019-02-04] MEDS: HEPARIN 5,000 UNIT/1 ML VIAL SC SCH (09:00)
[2019-02-04] MEDS ORDERED: TAMSULOSIN (SR) 0.4 MG CAP PO SCH (09:00)
[2019-02-04] MEDS: METOPROLOL (XL) 50 MG TAB PO SCH (09:00)
--- NOTE | 2019-02-04 09:26 | CONS ---
Consultation Date/Type/Reason Admit Date/Time 02/03/19 Type of Consult Cardiology Date/Time of Note DATE: 02/04/19 TIME: 09:25 Hx of Present Illness 83 yo with CAD, CHF 40-45%, COPD, PAD - now with severe anemia and ARF - OK to EGD/colonoscopy if needed - r/o [place], not in CHF stra[place]ord # [id number] Full note dictated Past Medical History Home Meds Active Scripts Tiotropium Brandon* (Spiriva*) 18 Mcg Cap.w.dev, 1 CAP INHALATION DAILY, #30 CAP 1 Refill Prov:MARC GLORIA 01/27/19 Reported Medications Naproxen* (Naproxen*) 500 Mg Tablet, 500 MG PO BID PRN for PAIN, TAB 01/20/19 Diclofenac Sodium* (Voltaren* Gel) 1% -100 Gm Gel, 2 GM TOP QID, #1 TUB 01/20/19 Budesonide-Formoterol Fumarate* (Symbicort*) 160-4.5 Hfa.aer.ad, 2 PUFF INHALATION BID, #1 EACH 01/20/19 Cyclosporine (RESTASIS) 1 Each Droperette, 1 DROP BOTH EYES Q12, #1 BOX 01/20/19 Ranolazine* (Ranexa*) 500 Mg Tab.sr.12h, 500 MG PO Q12, TAB 01/20/19 Tamsulosin Hcl* (Flomax*) 0.4 Mg Cap.er.24h, 0.4 MG PO DAILY, CAP 01/20/19 Linaclotide (LINZESS) 145 Mcg Capsule, 145 MCG PO DAILY, #30 CAP 01/20/19 Nebivolol Hcl* (Bystolic*) 10 Mg Tablet, 10 MG PO DAILY, #30 TAB 01/20/19 Omeprazole* (Omeprazole*) 20 Mg Capsule.dr, 20 MG PO DAILY, #30 CAP 01/20/19 Donepezil* (Aricept*) 5 Mg Tablet, 5 MG PO DAILY, TAB 01/20/19 Meloxicam* (Meloxicam*) 7.5 Mg Tablet, 7.5 MG PO DAILY, #30 TAB 01/20/19 Aspirin (Low Dose Aspirin) 81 Mg Tablet.dr, 81 MG PO DAILY, #30 TAB 01/20/19 Amlodipine Besylate* (Amlodipine Besylate*) 10 Mg Tablet, 10 MG PO DAILY, #30 TAB 01/20/19 Metoprolol Succinate* (Toprol XL*) 50 Mg Tab.er.24h, 50 MG PO DAILY, #30 TAB 01/20/19 Pentoxifylline* (Pentoxifylline*) 400 Mg Tablet.sa, 400 MG PO WITH MEALS, TAB 01/20/19 Medications Current Medications Amlodipine Besylate (Norvasc) 10 mg DAILY PO ; Start 02/04/19 at 09:00 Aspirin (Halfprin) 81 mg DAILY PO ; Start 02/04/19 at 09:00 Cyclosporine (Restasis) 1 drop Q12 BOTH EYES Last administered on 02/04/19at 08:44; Admin Dose 1 DROP; Start 02/03/19 at 21:00 Diclofenac Sodium (Voltaren 1% Gel) 2 gm QID TP ; Start 02/03/19 at 17:00 Donepezil HCl (Aricept) 5 mg DAILY PO ; Start 02/04/19 at 09:00 Metoprolol Succinate (Toprol Xl) 50 mg DAILY PO ; Start 02/04/19 at 09:00 Pentoxifylline (Trental) 400 mg WITH MEALS PO Last administered on 02/03/19at 21:38; Admin Dose 400 MG; Start 02/03/19 at 18:00 Ranolazine (Ranexa) 500 mg Q12 PO Last administered on 02/03/19at 21:38; Admin Dose 500 MG; Start 02/03/19 at 21:00 Tiotropium Brandon (Spiriva) 1 inh DAILY INH Last administered on 02/04/19at 08 :44; Admin Dose 1 INH; Start 02/04/19 at 09:00 Pantoprazole (Protonix Tab) 40 mg DAILY@0600 PO Last administered on 02/04/19at 06:51; Admin Dose 40 MG; Start 02/04/19 at 06:00 Levalbuterol (Xopenex Neb) 0.63 mg Q4H RESP THERAPY PRN HHN shortness of breath; Start 02/03/19 at 15:30 IV Flush (NS 3 ml) 3 ml PER PROTOCOL IV ; Start 02/03/19 at 15:30 Ondansetron HCl (Zofran Inj) 4 mg Q6H PRN IV NAUSEA/VOMITING; Start 02/03/19 at 15:30 Acetaminophen (Tylenol Tab) 650 mg Q6H PRN PO .PAIN 1-3 OR TEMP; Start 02/03/19 at 15:30 Docusate Sodium (Colace) 100 mg Q12H PRN PO .CONSTIPATION; Start 02/03/19 at 15:30 Magnesium Hydroxide (Milk Of Mag) 30 ml DAILY PRN PO .CONSTIPATION; Start 02/03/19 at 15:30 Heparin Sodium (Porcine) (Heparin (5000 Units/1ml)) 5,000 unit Q12 SC Last administered on 02/03/19at 21:38; Admin Dose 5,000 UNIT; Start 02/03/19 at 21:00 Cefepime HCl 50 ml @ 100 mls/hr Q24H IV ; Start 02/04/19 at 14:00 Tamsulosin HCl (Flomax) 0.4 mg BID PO ; Start 02/04/19 at 09:00 Morphine Sulfate (morphine) 2 mg Q4H PRN IV SEVERE PAIN LEVEL 7-10 Last administered on 02/03/19at 19:20; Admin Dose 2 MG; Start 02/03/19 at 16:30 Sodium Chloride 1,000 ml @ 100 mls/hr Q10H IV Last administered on 02/04/19at 09:21; Admin Dose 100 MLS/HR; Start 02/03/19 at 17:30 Arformoterol Tartrate (Brovana (Neb)) 2 ml BID RESP THERAPY INH ; Start 02/03/19 at 22:00 Budesonide (Pulmicort (Neb)) 0.5 mg Q12H RESP THERAPY INH Last administered on 02/04/19at 08:19; Admin Dose 0.5 MG; Start 02/03/19 at 22:00 Dextrose (D50w Syringe) ONCE PRN IV DECREASED GLUCOSE; Start 02/04/19 at 07:30; Stop 02/04/19 at 14:00 Allergies: Coded Allergies: No Known Drug Allergies (Verified Allergy, Mild, 02/03/19) Past Surgical History Past Surgical Hx: other (TURP, abdominal surgery, LLE procedure) Social History Alcohol Use: none Smoking Status: Former smoker Drug Use: none Exam/Review of Systems Vital Signs Vitals Vital Signs Date Temp Pulse Resp B/P (MAP) Pulse Ox O2 O2 Flow FiO2 Time Delivery Rate 02/04/19 98 22 92 Nasal 3.0 08:07 Cannula 02/04/19 97.5 132/71 07:10 (91) Labs Result Diagram: 02/04/19 0759 02/04/19 0759 Results 24hrs Laboratory Tests Test 02/03/19 12:07 02/03/19 13:51 02/03/19 14:49 02/03/19 15:46 White Blood 15.0 #H Count Red Blood Count 3.97 L Hemoglobin 11.5 L Hematocrit 35.5 L Mean Corpuscular 89.4 Volume Mean Corpuscular 29.0 Hemoglobin Mean Corpuscular 32.4 Hemoglobin Tiffani nt Red Cell 13.5 Distribution Width Platelet Count 256 Mean Platelet 9.8 Volume Immature 0.700 H Granulocytes % Neutrophils % 88.0 H Lymphocytes % 4.3 L Monocytes % 6.0 Eosinophils % 0.5 Basophils % 0.5 Nucleated Red 0.0 Blood Cells % Immature 0.100 H Granulocytes # Neutrophils # 13.2 H Lymphocytes # 0.7 L Monocytes # 0.9 Eosinophils # 0.1 Basophils # 0.1 Nucleated Red 0.0 Blood Cells # Sodium Level 137 Potassium Level 5.6 H Chloride Level 102 Carbon Dioxide 21 Level Anion Gap 14 H Blood Urea 89 H Nitrogen Creatinine 9.67 H Est Glomerular Filtrat Rate mL/min Glucose Level 97 Calcium Level 8.9 Total Bilirubin 0.2 Direct Bilirubin 0.00 Indirect 0.2 Bilirubin Aspartate Amino 24 Transf (AST/SGOT ) Alanine 18 Aminotransferase (ALT/SGPT) Alkaline 98 Phosphatase Troponin I 0.036 B-Type 4990 H Natriuretic Peptide Total Protein 7.1 Albumin 3.6 Globulin 3.50 H Albumin/Globulin 1.02 Ratio Lipase 91 Bedside Urine pH 5.0 (LAB) Bedside Urine 1+ H Protein (LAB) Bedside Urine Negative Glucose (UA) Bedside Urine Negative Ketones (LAB) Bedside Urine Trace-intact H Blood Bedside Urine Negative Nitrite (LAB) Bedside Urine 1+ H Leukocyte Estera se (L Bedside Glucose 117 171 Test 02/03/19 20:35 02/04/19 02:13 02/04/19 05:16 02/04/19 07:59 Urine Color YELLOW Urine Clarity SLIGHTLY CLOUDY A Urine pH 5.0 Urine Specific 1.011 [place] Urine Ketones NEGATIVE Urine Nitrite NEGATIVE Urine Bilirubin NEGATIVE Urine NEGATIVE Urobilinogen Urine Leukocyte 1+ H Esterase Urine 20 H Microscopic RBC Urine 33 H Microscopic WBC Urine Bacteria FEW A Urine Yeast FEW A (Budding) Urine Hemoglobin 1+ H Urine Random 75.76 Creatinine Urine Random 43 Sodium Urine Glucose NEGATIVE Urine Total 35.0 H Protein Bedside Glucose 174 White Blood 16.8 H 17.1 H Count Red Blood Count 2.44 #L 2.39 L Hemoglobin 7.0 #L 6.9 *L Hematocrit 21.5 #L 21.1 L Mean Corpuscular 88.1 88.3 Volume Mean Corpuscular 28.7 L 28.9 L Hemoglobin Mean Corpuscular 32.6 32.7 Hemoglobin Tiffani nt Red Cell 13.9 13.9 Distribution Width Platelet Count 235 242 Mean Platelet 10.2 10.6 H Volume Immature 0.400 0.500 H Granulocytes % Neutrophils % 92.3 H 92.4 H Lymphocytes % 3.5 L 3.7 L Monocytes % 3.6 3.1 Eosinophils % 0.0 0.0 Basophils % 0.2 0.3 Nucleated Red 0.0 0.0 Blood Cells % Immature 0.070 H 0.090 H Granulocytes # Neutrophils # 15.5 H 15.8 H Lymphocytes # 0.6 L 0.6 L Monocytes # 0.6 0.5 Eosinophils # 0.0 0.0 Basophils # 0.0 0.1 Nucleated Red 0.0 0.0 Blood Cells # Sodium Level 137 134 L Potassium Level 7.0 *H 7.3 *H Chloride Level 108 107 Carbon Dioxide 18 L 17 L Level Anion Gap 11 10 Blood Urea 122 #H 126 H Nitrogen Creatinine 9.70 H 9.78 H Est Glomerular Filtrat Rate mL/min Glucose Level 123 111 Calcium Level 7.1 L 7.5 L Phosphorus Level 6.9 H Magnesium Level 1.8 Test 02/04/19 08:28 Bedside Glucose 129 Medications Medications Current Medications Amlodipine Besylate (Norvasc) 10 mg DAILY PO ; Start 02/04/19 at 09:00 Aspirin (Halfprin) 81 mg DAILY PO ; Start 02/04/19 at 09:00 Cyclosporine (Restasis) 1 drop Q12 BOTH EYES Last administered on 02/04/19at 08:44; Admin Dose 1 DROP; Start 02/03/19 at 21:00 Diclofenac Sodium (Voltaren 1% Gel) 2 gm QID TP ; Start 02/03/19 at 17:00 Donepezil HCl (Aricept) 5 mg DAILY PO ; Start 02/04/19 at 09:00 Metoprolol Succinate (Toprol Xl) 50 mg DAILY PO ; Start 02/04/19 at 09:00 Pentoxifylline (Trental) 400 mg WITH MEALS PO Last administered on 02/03/19at 21:38; Admin Dose 400 MG; Start 02/03/19 at 18:00 Ranolazine (Ranexa) 500 mg Q12 PO Last administered on 02/03/19at 21:38; Admin Dose 500 MG; Start 02/03/19 at 21:00 Tiotropium Brandon (Spiriva) 1 inh DAILY INH Last administered on 02/04/19at 08:44; Admin Dose 1 INH; Start 02/04/19 at 09:00 Pantoprazole (Protonix Tab) 40 mg DAILY@0600 PO Last administered on 02/04/19at 06:51; Admin Dose 40 MG; Start 02/04/19 at 06:00 Levalbuterol (Xopenex Neb) 0.63 mg Q4H RESP THERAPY PRN HHN shortness of breath; Start 02/03/19 at 15:30 IV Flush (NS 3 ml) 3 ml PER PROTOCOL IV ; Start 02/03/19 at 15:30 Ondansetron HCl (Zofran Inj) 4 mg Q6H PRN IV NAUSEA/VOMITING; Start 02/03/19 at 15:30 Acetaminophen (Tylenol Tab) 650 mg Q6H PRN PO .PAIN 1-3 OR TEMP; Start 02/03/19 at 15:30 Docusate Sodium (Colace) 100 mg Q12H PRN PO .CONSTIPATION; Start 02/03/19 at 15:30 Magnesium Hydroxide (Milk Of Mag) 30 ml DAILY PRN PO .CONSTIPATION; Start 02/03/19 at 15:30 Heparin Sodium (Porcine) (Heparin (5000 Units/1ml)) 5,000 unit Q12 SC Last administered on 02/03/19at 21:38; Admin Dose 5,000 UNIT; Start 02/03/19 at 21:00 Cefepime HCl 50 ml @ 100 mls/hr Q24H IV ; Start 02/04/19 at 14:00 Tamsulosin HCl (Flomax) 0.4 mg BID PO ; Start 02/04/19 at 09:00 Morphine Sulfate (morphine) 2 mg Q4H PRN IV SEVERE PAIN LEVEL 7-10 Last administered on 02/03/19at 19:20; Admin Dose 2 MG; Start 02/03/19 at 16:30 Sodium Chloride 1,000 ml @ 100 mls/hr Q10H IV Last administered on 02/04/19at 09:21; Admin Dose 100 MLS/HR; Start 02/03/19 at 17:30 Arformoterol Tartrate (Brovana (Neb)) 2 ml BID RESP THERAPY INH ; Start 02/03/19 at 22:00 Budesonide (Pulmicort (Neb)) 0.5 mg Q12H RESP THERAPY INH Last administered on 02/04/19at 08:19; Admin Dose 0.5 MG; Start 02/03/19 at 22:00 Dextrose (D50w Syringe) ONCE PRN IV DECREASED GLUCOSE; Start 02/04/19 at 07:30; Stop 02/04/19 at 14:00 RICK PEREZ MD Feb 04, 2019 09:26
[2019-02-04] MEDS: ARFORMOTEROL TARTRATE 15MCG/2 ML AMP INH SCH ×2 (09:31→20:22)
--- NOTE | 2019-02-04 10:51 | CONS ---
DATE OF ADMISSION: 02/03/2019 DATE OF CONSULTATION: 02/04/2019 REFERRING PHYSICIAN: Dr. Chitra Campuzano. REASON FOR EVALUATION: Shortness of breath, precordial chest pain. HISTORY OF PRESENT ILLNESS: Mr. Jay is an 83-year-old gentleman with history of hypertension, p eripheral arterial disease, history of claudication system and arterial insufficiency. Also, history of heart failure with a depressed ejection fraction of 40 to 45%, who was recently hospitalized in [facility] with anemia and hematuria who comes to the hospital now for evidence of shortness of kat th. On presentation, the patient was very anemic with a hemoglobin of 6.9 and I have been asked to s ee the patient in consultation because of shortness of breath symptoms. The patient had some EKG abn ormalities with nonspecific ST-T changes and borderline tachycardia. This is in the setting of anemi a and hyperkalemia with potassium 7.3. The patient, however, did not rule in for acute myocardial in farction with negative troponin 0.036. I think for now, conservative therapy is expected. His antic oagulation is on hold because of the bleeding. We will continue to optimize his fluid status as nece ssary. PAST MEDICAL HISTORY: 1. Hypertension. 2. Dyslipidemia. 3. History of coronary artery disease. 4. History of renal insufficiency. 5. History of anemia in the past. 6. History of renal failure, acute on chronic. 7. History of benign prostatic hypertrophy. 8. History of significant peripheral arterial disease. ALLERGIES: NO KNOWN DRUG ALLERGIES. SOCIAL HISTORY: He has a history of tobacco use. He does not drink or use illicit drugs. FAMILY HISTORY: Negative for sudden cardiac or premature coronary artery disease. MEDICATIONS: Here include: 1. Cefepime. 2. Amlodipine 10 mg once a day. 3. Aspirin 81 once a day. 4. Donepezil. 5. Metoprolol succinate 50 mg p.o. once a day. 6. He is on Ranexa 500 b.i.d. 7. Subcutaneous heparin. 8. Docusate. 9. Magnesium hydroxide. 10. Albuterol. REVIEW OF SYSTEMS: CONSTITUTIONAL: No fever, no chills. Recent weakness and weight change. HEENT: No changes in vision or hearing. CARDIAC: Chest pain reported now. RESPIRATORY: Short of breath, acute on chronic. GASTROINTESTINAL: No nausea, vomiting. GENITOURINARY: No dysuria and melena. NEUROLOGIC: No focal neurologic changes or hearing loss. HEMATOLOGIC: History of anemia now. PHYSICAL EXAMINATION: VITAL SIGNS: Temperature is 97.5, heart rate 98, blood pressure 132/71. GENERAL: He is a thin gentleman in no acute distress, alert and oriented x3, aware of his condition. HEAD: Normocephalic, atraumatic. Extraocular movements are intact. NECK: Supple. JVD 6-7 cm. There is no lymphadenopathy, no thyromegaly. HEART: Irregular. Soft holosystolic murmur. PMI is minimally displaced. There is no S3. LUNGS: Coarse to base. ABDOMEN: Distended, bowel sounds are present. There is no hepatosplenomegaly. GENITOURINARY: Intact. EXTREMITIES: No cyanosis. Trace edema. LABORATORY DATA: Sodium 134, potassium 7.3, BUN is 126, creatinine is 9.8. Troponin is negative at 0.03. His INR is 1.3. White blood cell count 7.1, hemoglobin is 6.9. ASSESSMENT AND PLAN: 1. Shortness of breath. Shortness of breath is likely multifactorial. The patient has known lewis ry artery disease, cardiomyopathy with reduced ejection fraction; however, I think the most likely ca use of his shortness of breath now is anemia. Blood replacement is needed. GI will follow. We will hold off on anticoagulation now with significant anemia. 2. Hypertension. Blood pressure reasonably well controlled. We will allow higher blood pressure in the setting of acute blood loss. 3. Acute renal failure. Dr. Del Real follows. Continue to treat hyperkalemia. Potassium is high al ready at rest. We will continue to monitor as indicated. 4. Chronic obstructive pulmonary disease. Continue chronic obstructive pulmonary disease therapy as indicated with medications. 5. Cardiomyopathy. The patient has cardiomyopathy, ejection fraction 40 to 45%. Continue to keep e uvolemic. The patient does not appear to be in heart failure on examination now. I would like to thank Dr. Campuzano for referring this patient for my evaluation. Dictated By: RICK PEREZ MD ML/NTS Conf#: [id number] DID#: [id number] CC: CHITRA CAMPUZANO MD; ELISABET MARCANO MD;*EndCC*
[2019-02-04] MEDS: morphine 2 MG INJ IV PRN ×2 (12:16→18:35)
[2019-02-04] MEDS: CEFEPIME 1GM/50 ML (PMX) 50 ML IV SCH (14:00)
--- NOTE | 2019-02-04 14:24 | PN ---
Date/Time of Note Date/Time of Note DATE: 02/04/19 TIME: 14:09 Assessment/Plan VTE Prophylaxis SCD applied (from Nsg): Yes Pharmacological prophylaxis: NA/contraindicated Pharm contraindication: bleeding Lines/Catheters IV Catheter Type (from Nrsg): Peripheral IV Urinary Cath still in place: No Assessment/Plan Assessment/Plan 1. Acute chest pain, - Cardiology was consulted and believes chest pain is more anemia related at this time. - initial trop negative - recent ECHO from 10/2018 reveals EF 40-45% 2. Right lower lobe pneumonia - given recent hospitalization, will treat for HCAP - no cough but will collect sputum if available - nebs PRN and broad spectrum antibiotics - on home O2 after prior discharge 3. MARTHA on CKD - Nephrology consultation appreciated. mcrae placed and will monitor for improvement in renal function - renal US shows b/l hydro and medical disease - IVF on board - avoid nephrotoxic agents 4. Systolic heart failure - elevated BNP noted but does not appear overloaded - CXR negative for pulmonary congestion and no peripheral edema appreciated - unable to d/c on Lasix given renal function during last admission 5. Hyperkalemia - given Kayexalate yesterday and had BM last night. Insulin/dextrose as well as albuterol administered. pt refusing all PO intake so unable to give another Kayexalate - monitor for improvement 6. Leukocytosis - most likely secondary to #2 7. BPH - on flomax - states has surgical intervention in past 8. COPD - continue O2 and neb tx 9. HTN - BP stable - continue home medications and adjust as needed 10. PAD - stable - seen by Dr. Waite in the past 11. Anemia, ?blood loss - will transfuse PRBC with goal hgb >8 - FOBT ordered and if + will consult GI - PPI BID 12. Disposition - Continue treatment of hyperkalemia and monitoring for improvement in renal function. PRBC ordered as well given new anemia Result Diagram: 02/04/19 1237 02/04/19 0923 Results 24hrs Laboratory Tests Test 02/03/19 14:49 02/03/19 15:46 02/03/19 20:35 02/04/19 02:13 Bedside Glucose 117 171 174 Urine Color YELLOW Urine Clarity SLIGHTLY CLOUDY A Urine pH 5.0 Urine Specific 1.011 [place] Urine Ketones NEGATIVE Urine Nitrite NEGATIVE Urine Bilirubin NEGATIVE Urine NEGATIVE Urobilinogen Urine Leukocyte 1+ H Esterase Urine Microscopic 20 H RBC Urine Microscopic 33 H WBC Urine Bacteria FEW A Urine Yeast FEW A (Budding) Urine Hemoglobin 1+ H Urine Random 75.76 Creatinine Urine Random 43 Sodium Urine Glucose NEGATIVE Urine Total 35.0 H Protein Test 02/04/19 05:16 02/04/19 07:59 02/04/19 08:28 02/04/19 09:23 White Blood Count 16.8 H 17.1 H Red Blood Count 2.44 #L 2.39 L Hemoglobin 7.0 #L 6.9 *L Hematocrit 21.5 #L 21.1 L Mean Corpuscular 88.1 88.3 Volume Mean Corpuscular 28.7 L 28.9 L Hemoglobin Mean Corpuscular 32.6 32.7 Hemoglobin Concen t Red Cell 13.9 13.9 Distribution Width Platelet Count 235 242 Mean Platelet 10.2 10.6 H Volume Immature 0.400 0.500 H Granulocytes % Neutrophils % 92.3 H 92.4 H Lymphocytes % 3.5 L 3.7 L Monocytes % 3.6 3.1 Eosinophils % 0.0 0.0 Basophils % 0.2 0.3 Nucleated Red 0.0 0.0 Blood Cells % Immature 0.070 H 0.090 H Granulocytes # Neutrophils # 15.5 H 15.8 H Lymphocytes # 0.6 L 0.6 L Monocytes # 0.6 0.5 Eosinophils # 0.0 0.0 Basophils # 0.0 0.1 Nucleated Red 0.0 0.0 Blood Cells # Sodium Level 137 134 L 135 Potassium Level 7.0 *H 7.3 *H 7.0 *H Chloride Level 108 107 107 Carbon Dioxide 18 L 17 L 17 L Level Anion Gap 11 10 11 Blood Urea 122 #H 126 H 131 H Nitrogen Creatinine 9.70 H 9.78 H 9.71 H Est Glomerular Filtrat Rate mL/min Glucose Level 123 111 112 Calcium Level 7.1 L 7.5 L 7.6 L Phosphorus Level 6.9 H Magnesium Level 1.8 Bedside Glucose 129 Test 02/04/19 11:42 02/04/19 12:37 02/04/19 12:49 Bedside Glucose 137 134 White Blood Count 17.3 H Red Blood Count 2.32 L Hemoglobin 6.8 *L Hematocrit 20.6 L Mean Corpuscular 88.8 Volume Mean Corpuscular 29.3 Hemoglobin Mean Corpuscular 33.0 Hemoglobin Concen t Red Cell 13.7 Distribution Width Platelet Count 234 Mean Platelet 9.8 Volume Immature 0.600 H Granulocytes % Neutrophils % 94.6 H Lymphocytes % 4.2 L Monocytes % 0.4 Eosinophils % 0.0 Basophils % 0.2 Nucleated Red 0.0 Blood Cells % Immature 0.100 H Granulocytes # Neutrophils # 16.3 H Lymphocytes # 0.7 L Monocytes # 0.1 L Eosinophils # 0.0 Basophils # 0.0 Nucleated Red 0.0 Blood Cells # Subjective 24 Hr Interval Summary Free Text/Dictation Patient still complaining of chest discomfort and lack of appetite. had 2 BMs yesterday and 1 last night. Noted with dark stool as well per Nursing. Exam/Review of Systems Exam Vitals Vital Signs Date Temp Pulse Resp B/P (MAP) Pulse Ox O2 O2 Flow FiO2 Time Delivery Rate 02/04/19 108 12:09 02/04/19 97.6 24 159/80 100 Room Air 11:36 (106) 02/04/19 2.0 09:31 Exam General: distress secondary to pain. answering questions appropriately Chest: nontender CVS: S1, S2, regular rhythm, tachycardia, no murmurs Lungs: Coarse breath sounds at bases. no wheezing appreciated Abd: soft, tender diffusely, mildly distended. no rebound or guarding. bowel sounds present diffusely Ext: moving all extremities. no cyanosis, clubbing, or edema Skin: warm, dry. no rashes or lesions appreciated Results Results 24hrs Laboratory Tests Test 02/03/19 14:49 02/03/19 15:46 02/03/19 20:35 02/04/19 02:13 Bedside Glucose 117 171 174 Urine Color YELLOW Urine Clarity SLIGHTLY CLOUDY A Urine pH 5.0 Urine Specific 1.011 [place] Urine Ketones NEGATIVE Urine Nitrite NEGATIVE Urine Bilirubin NEGATIVE Urine NEGATIVE Urobilinogen Urine Leukocyte 1+ H Esterase Urine Microscopic 20 H RBC Urine Microscopic 33 H WBC Urine Bacteria FEW A Urine Yeast FEW A (Budding) Urine Hemoglobin 1+ H Urine Random 75.76 Creatinine Urine Random 43 Sodium Urine Glucose NEGATIVE Urine Total 35.0 H Protein Test 02/04/19 05:16 02/04/19 07:59 02/04/19 08:28 02/04/19 09:23 White Blood Count 16.8 H 17.1 H Red Blood Count 2.44 #L 2.39 L Hemoglobin 7.0 #L 6.9 *L Hematocrit 21.5 #L 21.1 L Mean Corpuscular 88.1 88.3 Volume Mean Corpuscular 28.7 L 28.9 L Hemoglobin Mean Corpuscular 32.6 32.7 Hemoglobin Concen t Red Cell 13.9 13.9 Distribution Width Platelet Count 235 242 Mean Platelet 10.2 10.6 H Volume Immature 0.400 0.500 H Granulocytes % Neutrophils % 92.3 H 92.4 H Lymphocytes % 3.5 L 3.7 L Monocytes % 3.6 3.1 Eosinophils % 0.0 0.0 Basophils % 0.2 0.3 Nucleated Red 0.0 0.0 Blood Cells % Immature 0.070 H 0.090 H Granulocytes # Neutrophils # 15.5 H 15.8 H Lymphocytes # 0.6 L 0.6 L Monocytes # 0.6 0.5 Eosinophils # 0.0 0.0 Basophils # 0.0 0.1 Nucleated Red 0.0 0.0 Blood Cells # Sodium Level 137 134 L 135 Potassium Level 7.0 *H 7.3 *H 7.0 *H Chloride Level 108 107 107 Carbon Dioxide 18 L 17 L 17 L Level Anion Gap 11 10 11 Blood Urea 122 #H 126 H 131 H Nitrogen Creatinine 9.70 H 9.78 H 9.71 H Est Glomerular Filtrat Rate mL/min Glucose Level 123 111 112 Calcium Level 7.1 L 7.5 L 7.6 L Phosphorus Level 6.9 H Magnesium Level 1.8 Bedside Glucose 129 Test 02/04/19 11:42 02/04/19 12:37 02/04/19 12:49 Bedside Glucose 137 134 White Blood Count 17.3 H Red Blood Count 2.32 L Hemoglobin 6.8 *L Hematocrit 20.6 L Mean Corpuscular 88.8 Volume Mean Corpuscular 29.3 Hemoglobin Mean Corpuscular 33.0 Hemoglobin Concen t Red Cell 13.7 Distribution Width Platelet Count 234 Mean Platelet 9.8 Volume Immature 0.600 H Granulocytes % Neutrophils % 94.6 H Lymphocytes % 4.2 L Monocytes % 0.4 Eosinophils % 0.0 Basophils % 0.2 Nucleated Red 0.0 Blood Cells % Immature 0.100 H Granulocytes # Neutrophils # 16.3 H Lymphocytes # 0.7 L Monocytes # 0.1 L Eosinophils # 0.0 Basophils # 0.0 Nucleated Red 0.0 Blood Cells # Medications Medication Current Medications Amlodipine Besylate (Norvasc) 10 mg DAILY PO ; Start 02/04/19 at 09:00 Aspirin (Halfprin) 81 mg DAILY PO ; Start 02/04/19 at 09:00 Cyclosporine (Restasis) 1 drop Q12 BOTH EYES Last administered on 02/04/19at 08:44; Admin Dose 1 DROP; Start 02/03/19 at 21:00 Diclofenac Sodium (Voltaren 1% Gel) 2 gm QID TP ; Start 02/03/19 at 17:00 Donepezil HCl (Aricept) 5 mg DAILY PO ; Start 02/04/19 at 09:00 Metoprolol Succinate (Toprol Xl) 50 mg DAILY PO ; Start 02/04/19 at 09:00 Pentoxifylline (Trental) 400 mg WITH MEALS PO Last administered on 02/03/19at 21:38; Admin Dose 400 MG; Start 02/03/19 at 18:00 Ranolazine (Ranexa) 500 mg Q12 PO Last administered on 02/03/19at 21:38; Admin Dose 500 MG; Start 02/03/19 at 21:00 Tiotropium [place] (Spiriva) 1 inh DAILY INH Last administered on 02/04/19at 08:44; Admin Dose 1 INH; Start 02/04/19 at 09:00 Pantoprazole (Protonix Tab) 40 mg DAILY@0600 PO Last administered on 02/04/19at 06:51; Admin Dose 40 MG; Start 02/04/19 at 06:00 Levalbuterol (Xopenex Neb) 0.63 mg Q4H RESP THERAPY PRN HHN shortness of breath; Start 02/03/19 at 15:30 IV Flush (NS 3 ml) 3 ml PER PROTOCOL IV ; Start 02/03/19 at 15:30 Ondansetron HCl (Zofran Inj) 4 mg Q6H PRN IV NAUSEA/VOMITING; Start 02/03/19 at 15:30 Acetaminophen (Tylenol Tab) 650 mg Q6H PRN PO .PAIN 1-3 OR TEMP; Start 02/03/19 at 15:30 Docusate Sodium (Colace) 100 mg Q12H PRN PO .CONSTIPATION; Start 02/03/19 at 15:30 Magnesium Hydroxide (Milk Of Mag) 30 ml DAILY PRN PO .CONSTIPATION; Start 02/03/19 at 15:30 Heparin Sodium (Porcine) (Heparin (5000 Units/1ml)) 5,000 unit Q12 SC Last administered on 02/03/19at 21:38; Admin Dose 5,000 UNIT; Start 02/03/19 at 21:00 Cefepime HCl 50 ml @ 100 mls/hr Q24H IV ; Start 02/04/19 at 14:00 Tamsulosin HCl (Flomax) 0.4 mg BID PO ; Start 02/04/19 at 09:00 Morphine Sulfate (morphine) 2 mg Q4H PRN IV SEVERE PAIN LEVEL 7-10 Last administered on 02/04/19at 12:16; Admin Dose 2 MG; Start 02/03/19 at 16:30 Sodium Chloride 1,000 ml @ 100 mls/hr Q10H IV Last administered on 02/04/19at 09:21; Admin Dose 100 MLS/HR; Start 02/03/19 at 17:30 Arformoterol Tartrate (Brovana (Neb)) 2 ml BID RESP THERAPY INH Last administered on 02/04/19 09:31; Admin Dose 2 ML; Start 02/03/19 at 22:00 Budesonide (Pulmicort (Neb)) 0.5 mg Q12H RESP THERAPY INH Last administered on 02/04/19 08:19; Admin Dose 0.5 MG; Start 02/03/19 at 22:00 JAE DURAN MD Feb 04, 2019 14:24
[2019-02-04] MEDS: PANTOPRAZOLE 40 MG INJ IV SCH (17:38)
[2019-02-04] MEDS ORDERED: hydrALAzine 20 MG INJ IV PRN (20:30)
[2019-02-05] VITALS (10 sets, daily range): BP systolic 108–142; BP diastolic 60–80; PULSE 96–120; RESP 18–22
[2019-02-05] MEDS: PANTOPRAZOLE 40 MG INJ IV SCH ×2 (06:00→17:16)
[2019-02-05] MEDS: ARFORMOTEROL TARTRATE 15MCG/2 ML AMP INH SCH ×2 (07:57→19:58)
[2019-02-05] MEDS: BUDESONIDE (NEB) 0.5MG/2ML AMP INH SCH ×2 (07:57→19:58)
[2019-02-05] MEDS: PENTOXIFYLLINE (SR) 400 MG TAB PO SCH ×2 (08:00→12:00)
[2019-02-05] MEDS: ASPIRIN (EC) 81 MG TAB PO SCH (09:00)
[2019-02-05] MEDS: AMLODIPINE 10 MG TAB PO SCH (09:00)
[2019-02-05] MEDS: RANOLAZINE (SR) 500 MG TAB PO SCH ×2 (09:00→21:25)
[2019-02-05] MEDS: TIOTROPIUM 18 MCG CAPSULE INHA DEV INH SCH (09:00)
[2019-02-05] MEDS: TAMSULOSIN (SR) 0.4 MG CAP PO SCH ×2 (09:00→21:26)
[2019-02-05] MEDS: METOPROLOL (XL) 50 MG TAB PO SCH (09:00)
[2019-02-05] MEDS: DONEPEZIL 5 MG TAB PO SCH (09:00)
--- NOTE | 2019-02-05 09:36 | PN ---
DATE: 02/05/2019 SUBJECTIVE: The patient is stable, no events overnight. No fevers, chills, nausea or vomiting. OBJECTIVE: VITAL SIGNS: Blood pressure is 142/72, respirations 22, pulse 96, temperature 97.0. HEENT: Head is normocephalic. NECK: Supple. HEART: Regular rate. LUNGS: Show diminished breath sounds at the base. ABDOMEN: Soft, nontender to palpation. No rebound or guarding. EXTREMITIES: Negative for clubbing, cyanosis, no edema. DERMATOLOGIC: No rashes. MUSCULOSKELETAL: No joint effusion. NEUROLOGIC: No change in exam. MEDICATIONS: Reviewed. LABORATORY DATA: Reviewed. ASSESSMENT AND PLAN: 1. Nonoliguric acute kidney injury with previous baseline creatinine of 2.0 mg/dL. Etiology of acut e kidney injury is secondary to obstructive uropathy. The patient's renal function has markedly impr ap after Emerson catheter placement. We will continue to monitor closely. Continue to monitor for p ost- obstructive diuresis. We will continue supportive care, renally dose all medications and avoid nephrotoxins. 2. Hyperkalemia, improved. Continue to monitor. 3. Hypernatremia. The patient has a free water deficit of approximately 1 liter. We will adjust IV fluids to half NS. Monitor closely. 4. Metabolic acidosis secondary to acute kidney injury, resolving. 5. Mineral bone disorder, monitor calcium and phosphorus levels. 6. Anemia. The patient had a drop in hemoglobin and hematocrit levels. Continue to monitor. Trans fuse PRBCs as needed. 7. Sepsis secondary to pneumonia. Continue current antibiotic regimen. 8. Chest pain, etiology is unclear. The patient is being ruled out for acute coronary syndrome. Co ntinue to monitor. 9. Benign prostatic hypertrophy with urinary retention, obstructive uropathy. The patient is status post Emerson catheter placement. Continue Flomax. 10. History of chronic obstructive pulmonary disease. Continue nebulizer, supplemental oxygen. 11. Hypertension. Continue current blood pressure regimen. 12. Peripheral vascular disease. Followup with vascular surgery. 13. History of heart failure. The patient is currently compensated. Continue to monitor closely on IV fluids. Dictated By: HECTOR BERMUDEZ DO NR/NTS Conf#: [id number] DID#: [id number] CC: JAE DURAN MD; ELISABET MARCANO MD;*EndCC*
[2019-02-05] MEDS: CYCLOSPORINE 0.05% OPH DROPERETTE BOTH EYES SCH ×2 (09:56→21:27)
[2019-02-05] MEDS: SOD CHLORIDE 0.45% 1,000 ML IV SCH ×2 (10:11→19:30)
[2019-02-05] MEDS: NITROGLYCERIN (SL) 0.4 MG TAB SL PRN ×3 (10:15→10:29)
[2019-02-05] MEDS: DICLOFENAC SODIUM 1% GEL 100 GM TUBE TP SCH ×4 (10:20→21:00)
[2019-02-05] MEDS ORDERED: LIDOCAINE/MYLANTA 40 ML BTL PO ONE (11:00)
--- NOTE | 2019-02-05 12:35 | CONS ---
Assessment/Plan Assessment/Plan Hospital Course (Demo Recall) Summary Assessment and Plan: Assessment: Acute on chronic anemia with reported dark stool Acute chest pain-being followed by cardiology Right lower lobe pneumonia-on antibiotics MARTHA on CKD Systolic heart failure COPD Hypertension Plan: Patient has been cleared by cardiology to proceed with EGD and a colonoscopy if needed Clear liquids today NPO after 02/06/19 0900 EGD/colonoscopy tomorrow Endoscopy - risks/benefits/alternatives/indications of procedure and sedation/a nesthesia discussed with patient via gis coordinator who states understanding and gives informed consent to proceed. Additionally spoke to Gabrielle patient's [id number] per patient's request to discuss plan of care she verbalized understanding Patient seen in collaboration with Dr. Knott CC: MONICA KNOTT MD ; Consultation Date/Type/Reason Admit Date/Time 02/03/19 Date of Consultation: Feb 05, 2019 Type of Consult GI Reason for Consultation Anemia Date/Time of Note DATE: 02/05/19 TIME: 12:10 Hx of Present Illness This is an 83-year-old with past medical history COPD,, kidney disease, CAD, cardiomyopathy with ejection fraction 40 to 45% and systolic heart failure is admitted to the hospital for right lower lobe pneumonia and acute chest pain. On admission patient's hemoglobin was 11.5 he had a noted dark stool with a decrease in hemoglobin to 7.0. Since then patient has not had any overt signs of GI bleed status post blood transfusion with minimal improvement. Additional blood transfusions are currently pending. At time evaluation patient complains of chest pain as well as abdominal cramping he is passing gas but has no further bowel movements he denies having previous EGD but states he did have a colonoscopy in 2016 with removal of what is described as possibly a polyp. All information was discussed with patient via gis coordinator including plan for EGD colonoscopy tomorrow patient verbalized understanding is agreeable. Per his request I spoke to patient's [id number] Gabrielle phone number [phone]. Update was given to her including plan for tomorrow she verbalized understanding and states will talk to the rest of the family. Review of Systems: [A 12 system, review was conducted and is negative except as noted in the HPI or here.] Past Medical History Medical History: congestive heart failure, hypertension, renal disease, other (COPD, CM with EF 40-45%, peripheral artery disease) Home Meds Active Scripts Tiotropium [place]* (Spiriva*) 18 Mcg Cap.w.dev, 1 CAP INHALATION DAILY, #30 CAP 1 Refill Prov:MARC GLORIA 01/27/19 Reported Medications Naproxen* (Naproxen*) 500 Mg Tablet, 500 MG PO BID PRN for PAIN, TAB 01/20/19 Diclofenac Sodium* (Voltaren* Gel) 1% -100 Gm Gel, 2 GM TOP QID, #1 TUB 01/20/19 Budesonide-Formoterol Fumarate* (Symbicort*) 160-4.5 Hfa.aer.ad, 2 PUFF INHALATION BID, #1 EACH 01/20/19 Cyclosporine (RESTASIS) 1 Each Droperette, 1 DROP BOTH EYES Q12, #1 BOX 01/20/19 Ranolazine* (Ranexa*) 500 Mg Tab.sr.12h, 500 MG PO Q12, TAB 01/20/19 Tamsulosin Hcl* (Flomax*) 0.4 Mg Cap.er.24h, 0.4 MG PO DAILY, CAP 01/20/19 Linaclotide (LINZESS) 145 Mcg Capsule, 145 MCG PO DAILY, #30 CAP 01/20/19 Nebivolol Hcl* (Bystolic*) 10 Mg Tablet, 10 MG PO DAILY, #30 TAB 01/20/19 Omeprazole* (Omeprazole*) 20 Mg Capsule.dr, 20 MG PO DAILY, #30 CAP 01/20/19 Donepezil* (Aricept*) 5 Mg Tablet, 5 MG PO DAILY, TAB 01/20/19 Meloxicam* (Meloxicam*) 7.5 Mg Tablet, 7.5 MG PO DAILY, #30 TAB 01/20/19 Aspirin (Low Dose Aspirin) 81 Mg Tablet.dr, 81 MG PO DAILY, #30 TAB 01/20/19 Amlodipine Besylate* (Amlodipine Besylate*) 10 Mg Tablet, 10 MG PO DAILY, #30 TAB 01/20/19 Metoprolol Succinate* (Toprol XL*) 50 Mg Tab.er.24h, 50 MG PO DAILY, #30 TAB 01/20/19 Pentoxifylline* (Pentoxifylline*) 400 Mg Tablet.sa, 400 MG PO WITH MEALS, TAB 01/20/19 Medications Current Medications Amlodipine Besylate (Norvasc) 10 mg DAILY PO ; Start 02/04/19 at 09:00 Aspirin (Halfprin) 81 mg DAILY PO ; Start 02/04/19 at 09:00 Cyclosporine (Restasis) 1 drop Q12 BOTH EYES Last administered on 02/05/19at 09:56; Admin Dose 1 DROP; Start 02/03/19 at 21:00 Diclofenac Sodium (Voltaren 1% Gel) 2 gm QID TP ; Start 02/03/19 at 17:00 Donepezil HCl (Aricept) 5 mg DAILY PO ; Start 02/04/19 at 09:00 Metoprolol Succinate (Toprol Xl) 50 mg DAILY PO ; Start 02/04/19 at 09:00 Pentoxifylline (Trental) 400 mg WITH MEALS PO Last administered on 02/03/19at 21:38; Admin Dose 400 MG; Start 02/03/19 at 18:00 Ranolazine (Ranexa) 500 mg Q12 PO Last administered on 02/04/19at 20:52; Admin Dose 500 MG; Start 02/03/19 at 21:00 Tiotropium [place] (Spiriva) 1 inh DAILY INH Last administered on 02/04/19at 08:44; Admin Dose 1 INH; Start 02/04/19 at 09:00 Levalbuterol (Xopenex Neb) 0.63 mg Q4H RESP THERAPY PRN HHN shortness of breath; Start 02/03/19 at 15:30 IV Flush (NS 3 ml) 3 ml PER PROTOCOL IV ; Start 02/03/19 at 15:30 Ondansetron HCl (Zofran Inj) 4 mg Q6H PRN IV NAUSEA/VOMITING; Start 02/03/19 at 15:30 Acetaminophen (Tylenol Tab) 650 mg Q6H PRN PO .PAIN 1-3 OR TEMP; Start 02/03/19 at 15:30 Docusate Sodium (Colace) 100 mg Q12H PRN PO .CONSTIPATION; Start 02/03/19 at 15:30 Magnesium Hydroxide (Milk Of Mag) 30 ml DAILY PRN PO .CONSTIPATION; Start 02/03/19 at 15:30 Heparin Sodium (Porcine) (Heparin (5000 Units/1ml)) 5,000 unit Q12 SC Last administered on 02/03/19at 21:38; Admin Dose 5,000 UNIT; Start 02/03/19 at 21:00; Status Hold Cefepime HCl 50 ml @ 100 mls/hr Q24H IV Last administered on 02/04/19 14:00; Admin Dose 100 MLS/HR; Start 02/04/19 at 14:00 Tamsulosin HCl (Flomax) 0.4 mg BID PO Last administered on 02/04/19 20:52; Admin Dose 0.4 MG; Start 02/04/19 at 09:00 Morphine Sulfate (morphine) 2 mg Q4H PRN IV SEVERE PAIN LEVEL 7-10 Last administered on 02/04/19 18:35; Admin Dose 2 MG; Start 02/03/19 at 16:30 Arformoterol Tartrate (Brovana (Neb)) 2 ml BID RESP THERAPY INH Last administered on 02/05/19 07:57; Admin Dose 2 ML; Start 02/03/19 at 22:00 Budesonide (Pulmicort (Neb)) 0.5 mg Q12H RESP THERAPY INH Last administered on 02/05/19 07:57; Admin Dose 0.5 MG; Start 02/03/19 at 22:00 Pantoprazole (Protonix Iv) 40 mg BID@06,18 IV Last administered on 02/04/19 17:38; Admin Dose 40 MG; Start 02/04/19 at 18:00 Hydralazine HCl (Apresoline) 5 mg Q6H PRN IV ELEVATED BLOOD PRESSURE; Start 02/04/19 at 20:30 Sodium Chloride 1,000 ml @ 100 mls/hr Q10H IV Last administered on 02/05/19 10:11; Admin Dose 100 MLS/HR; Start 02/05/19 at 09:30 Nitroglycerin (Nitroglycerin (Sl Tab) 0.4 Mg) 1 tab Q5M PRN SL ANGINA Last administered on 02/05/19 10:29; Admin Dose 1 TAB; Start 02/05/19 at 10:30 Allergies: Coded Allergies: No Known Drug Allergies (Verified Allergy, Mild, 02/03/19) Past Surgical History Past Surgical Hx: other (TURP, abdominal surgery, LLE procedure) Social History Alcohol Use: none Smoking Status: Former smoker Drug Use: none Exam/Review of Systems Exam Vitals Vital Signs Date Temp Pulse Resp B/P (MAP) Pulse Ox O2 O2 Flow FiO2 Time Delivery Rate 02/05/19 98.3 102 22 113/62 Nasal 3.0 11:18 (79) Cannula 02/05/19 96 07:58 Intake and Output 02/04/19 02/04/19 02/05/19 1515:00 23:00 07:00 IntakeIntake Total 100 ml 1725 ml 400 ml OutputOutput Total 2350 ml 650 ml 2100 ml BalanceBalance -2250 ml 1075 ml -1700 ml Exam PHYSICAL EXAMINATION: GENERAL: Alert & oriented x 3, in no acute distress SKIN: No lesions HEAD: Normocephalic, atraumatic, no tenderness. EYES: Pupils equal reactive to light and accommodation, no discharge. EARS/NOSE AND THROAT: Ears normal, nose normal. NECK: Supple, no masses. CHEST: Inspection within normal limits. CARDIOVASCULAR: Heart: Regular rate and rhythm RESPIRATORY: Lungs clear to auscultation and percussion, no wheezing, no rubs GASTROINTESTINAL AND LIVER: Abdomen: Soft, non tenderness, non-distended, no hernias, no masses, no organomegaly, no ascites, no guarding, no rebound tenderness, normoactive bowel sounds. Rectal: Deferred. EXTREMITIES: No cyanosis, clubbing or edema. Results Result Diagram: 02/05/19 0542 02/05/19 0542 Results 24hrs Laboratory Tests Test 02/04/19 12:37 02/04/19 12:49 02/04/19 14:12 02/04/19 17:27 White Blood Count 17.3 H Red Blood Count 2.32 L Hemoglobin 6.8 *L Hematocrit 20.6 L Mean Corpuscular 88.8 Volume Mean Corpuscular 29.3 Hemoglobin Mean Corpuscular 33.0 Hemoglobin Concent Red Cell 13.7 Distribution Width Platelet Count 234 Mean Platelet Volume 9.8 Immature 0.600 H Granulocytes % Neutrophils % 94.6 H Lymphocytes % 4.2 L Monocytes % 0.4 Eosinophils % 0.0 Basophils % 0.2 Nucleated Red Blood 0.0 Cells % Immature 0.100 H Granulocytes # Neutrophils # 16.3 H Lymphocytes # 0.7 L Monocytes # 0.1 L Eosinophils # 0.0 Basophils # 0.0 Nucleated Red Blood 0.0 Cells # Bedside Glucose 134 176 Sodium Level 137 Potassium Level 5.6 H Chloride Level 109 Carbon Dioxide Level 16 L Anion Gap 12 Blood Urea Nitrogen 123 H Creatinine 8.60 H Est Glomerular Filtrat Rate mL/min Glucose Level 87 Calcium Level 7.7 L Test 02/05/19 05:42 02/05/19 10:53 White Blood Count 13.1 #H Red Blood Count 2.49 L Hemoglobin 7.2 L Hematocrit 21.6 L Mean Corpuscular 86.7 Volume Mean Corpuscular 28.9 L Hemoglobin Mean Corpuscular 33.3 Hemoglobin Concent Red Cell 13.9 Distribution Width Platelet Count 247 Mean Platelet Volume 9.9 Immature 0.600 H Granulocytes % Neutrophils % 81.8 H Lymphocytes % 8.0 L Monocytes % 8.1 Eosinophils % 1.0 Basophils % 0.5 Nucleated Red Blood 0.0 Cells % Immature 0.080 H Granulocytes # Neutrophils # 10.7 H Lymphocytes # 1.1 Monocytes # 1.1 H Eosinophils # 0.1 Basophils # 0.1 Nucleated Red Blood 0.0 Cells # Sodium Level 145 H Potassium Level 4.6 Chloride Level 114 H Carbon Dioxide Level 21 Anion Gap 10 Blood Urea Nitrogen 95 H Creatinine 4.67 #H Est Glomerular Filtrat Rate mL/min Glucose Level 101 Calcium Level 8.1 L Phosphorus Level 4.8 Magnesium Level 1.7 Albumin 2.4 #L Creatine Kinase < 20 L Creatine Kinase Pending Index Creatinine Kinase MB Pending (Mass) Troponin I Pending Medications Medication Current Medications Amlodipine Besylate (Norvasc) 10 mg DAILY PO ; Start 02/04/19 at 09:00 Aspirin (Halfprin) 81 mg DAILY PO ; Start 02/04/19 at 09:00 Cyclosporine (Restasis) 1 drop Q12 BOTH EYES Last administered on 02/05/19at 09:56; Admin Dose 1 DROP; Start 02/03/19 at 21:00 Diclofenac Sodium (Voltaren 1% Gel) 2 gm QID TP ; Start 02/03/19 at 17:00 Donepezil HCl (Aricept) 5 mg DAILY PO ; Start 02/04/19 at 09:00 Metoprolol Succinate (Toprol Xl) 50 mg DAILY PO ; Start 02/04/19 at 09:00 Pentoxifylline (Trental) 400 mg WITH MEALS PO Last administered on 02/03/19at 21:38; Admin Dose 400 MG; Start 02/03/19 at 18:00 Ranolazine (Ranexa) 500 mg Q12 PO Last administered on 02/04/19 20:52; Admin Dose 500 MG; Start 02/03/19 at 21:00 Tiotropium [place] (Spiriva) 1 inh DAILY INH Last administered on 02/04/19 08:44; Admin Dose 1 INH; Start 02/04/19 at 09:00 Levalbuterol (Xopenex Neb) 0.63 mg Q4H RESP THERAPY PRN HHN shortness of breath; Start 02/03/19 at 15:30 IV Flush (NS 3 ml) 3 ml PER PROTOCOL IV ; Start 02/03/19 at 15:30 Ondansetron HCl (Zofran Inj) 4 mg Q6H PRN IV NAUSEA/VOMITING; Start 02/03/19 at 15:30 Acetaminophen (Tylenol Tab) 650 mg Q6H PRN PO .PAIN 1-3 OR TEMP; Start 02/03/19 at 15:30 Docusate Sodium (Colace) 100 mg Q12H PRN PO .CONSTIPATION; Start 02/03/19 at 15:30 Magnesium Hydroxide (Milk Of Mag) 30 ml DAILY PRN PO .CONSTIPATION; Start 02/03/19 at 15:30 Heparin Sodium (Porcine) (Heparin (5000 Units/1ml)) 5,000 unit Q12 SC Last administered on 02/03/19 21:38; Admin Dose 5,000 UNIT; Start 02/03/19 at 21:00; Status Hold Cefepime HCl 50 ml @ 100 mls/hr Q24H IV Last administered on 02/04/19 14:00; Admin Dose 100 MLS/HR; Start 02/04/19 at 14:00 Tamsulosin HCl (Flomax) 0.4 mg BID PO Last administered on 02/04/19 20:52; Admin Dose 0.4 MG; Start 02/04/19 at 09:00 Morphine Sulfate (morphine) 2 mg Q4H PRN IV SEVERE PAIN LEVEL 7-10 Last administered on 02/04/19 18:35; Admin Dose 2 MG; Start 02/03/19 at 16:30 Arformoterol Tartrate (Brovana (Neb)) 2 ml BID RESP THERAPY INH Last administered on 02/05/19 07:57; Admin Dose 2 ML; Start 02/03/19 at 22:00 Budesonide (Pulmicort (Neb)) 0.5 mg Q12H RESP THERAPY INH Last administered on 02/05/19at 07:57; Admin Dose 0.5 MG; Start 02/03/19 at 22:00 Pantoprazole (Protonix Iv) 40 mg BID@06,18 IV Last administered on 02/04/19at 17:38; Admin Dose 40 MG; Start 02/04/19 at 18:00 Hydralazine HCl (Apresoline) 5 mg Q6H PRN IV ELEVATED BLOOD PRESSURE; Start 02/04/19 at 20:30 Sodium Chloride 1,000 ml @ 100 mls/hr Q10H IV Last administered on 02/05/19at 10:11; Admin Dose 100 MLS/HR; Start 02/05/19 at 09:30 Nitroglycerin (Nitroglycerin (Sl Tab) 0.4 Mg) 1 tab Q5M PRN SL ANGINA Last administered on 02/05/19at 10:29; Admin Dose 1 TAB; Start 02/05/19 at 10:30 ISIDRO ARREDONDO Feb 05, 2019 12:20
--- NOTE | 2019-02-05 14:29 | PN ---
Date/Time of Note Date/Time of Note DATE: 02/05/19 TIME: 14:24 Assessment/Plan VTE Prophylaxis Risk score (from Ns)>0 risk: 4 SCD applied (from Ns): Yes Pharmacological prophylaxis: NA/contraindicated Pharm contraindication: bleeding Lines/Catheters IV Catheter Type (from Nrs): Saline Lock Urinary Cath still in place: Yes Reason Cath still needed: urinary retention Assessment/Plan Assessment/Plan 1. Acute chest pain - still complaining of persistent epigastric discomfort and mild relief when passing gas - Cardiology consultation appreciated - trop slightly elevated and will trend - recent ECHO from 10/2018 reveals EF 40-45% 2. Right lower lobe pneumonia, HCAP - no cough but will collect sputum if available - nebs PRN and broad spectrum antibiotics - on home O2 after prior discharge 3. MARTHA on CKD- improving - most likely post obstructive etiology given improvement after mcrae placed. Most likely prerenal as well given poor PO intake - Nephrology consultation appreciated. - renal US shows b/l hydro and medical disease - IVF on board - avoid nephrotoxic agents 4. Systolic heart failure - elevated BNP noted but does not appear overloaded - CXR negative for pulmonary congestion and no peripheral edema appreciated 5. Hyperkalemia - given Kayexalate yesterday and had BM last night. Insulin/dextrose as well as albuterol administered. pt refusing all PO intake so unable to give another Kayexalate - monitor for improvement 6. Leukocytosis- improving - most likely secondary to #2 7. BPH - on flomax 8. COPD - continue O2 and neb tx 9. HTN - BP stable - continue home medications and adjust as needed 10. PAD - stable - seen by Dr. Waite in the past 11. Anemia, ?blood loss - will give another transfusion given low hgb - GI consultation appreciated and will plan for EGD/ colonoscopy tomorrow - PPI BID 12. Disposition - Plans for EGD/colonoscopy tomorrow - continue symptomatic tx Result Diagram: 02/05/19 0542 02/05/19 0542 Results 24hrs Laboratory Tests Test 02/04/19 17:27 02/05/19 05:42 02/05/19 10:53 Bedside Glucose 176 White Blood Count 13.1 #H Red Blood Count 2.49 L Hemoglobin 7.2 L Hematocrit 21.6 L Mean Corpuscular Volume 86.7 Mean Corpuscular Hemoglobin 28.9 L Mean Corpuscular Hemoglobin Concent 33.3 Red Cell Distribution Width 13.9 Platelet Count 247 Mean Platelet Volume 9.9 Immature Granulocytes % 0.600 H Neutrophils % 81.8 H Lymphocytes % 8.0 L Monocytes % 8.1 Eosinophils % 1.0 Basophils % 0.5 Nucleated Red Blood Cells % 0.0 Immature Granulocytes # 0.080 H Neutrophils # 10.7 H Lymphocytes # 1.1 Monocytes # 1.1 H Eosinophils # 0.1 Basophils # 0.1 Nucleated Red Blood Cells # 0.0 Sodium Level 145 H Potassium Level 4.6 Chloride Level 114 H Carbon Dioxide Level 21 Anion Gap 10 Blood Urea Nitrogen 95 H Creatinine 4.67 #H Est Glomerular Filtrat Rate mL/min Glucose Level 101 Calcium Level 8.1 L Phosphorus Level 4.8 Magnesium Level 1.7 Albumin 2.4 #L Creatine Kinase < 20 L Creatine Kinase Index Creatinine Kinase MB (Mass) 3.17 H Troponin I 0.135 *H Subjective 24 Hr Interval Summary Free Text/Dictation Patient still complaining of chest pain with diaphoresis. Does admit that with flatulence, chest discomfort improves. Still with diminished appetite. Exam/Review of Systems Exam Vitals Vital Signs Date Temp Pulse Resp B/P (MAP) Pulse Ox O2 O2 Flow FiO2 Time Delivery Rate 02/05/19 100 12:00 02/05/19 98.3 22 113/62 Nasal 3.0 11:18 (79) Cannula 02/05/19 96 07:58 Intake and Output 02/04/19 02/04/19 02/05/19 1515:00 23:00 07:00 IntakeIntake Total 100 ml 1725 ml 400 ml OutputOutput Total 2350 ml 650 ml 2100 ml BalanceBalance -2250 ml 1075 ml -1700 ml Exam General: distress secondary to pain. answering questions appropriately Chest: nontender CVS: S1, S2, regular rhythm, tachycardia, no murmurs Lungs: Coarse breath sounds at bases. no wheezing appreciated Abd: soft, tender diffusely, mildly distended. no rebound or guarding. bowel sounds present diffusely Ext: moving all extremities. no cyanosis, clubbing, or edema Skin: diaphoretic, pale Results Results 24hrs Laboratory Tests Test 02/04/19 17:27 02/05/19 05:42 02/05/19 10:53 Bedside Glucose 176 White Blood Count 13.1 #H Red Blood Count 2.49 L Hemoglobin 7.2 L Hematocrit 21.6 L Mean Corpuscular Volume 86.7 Mean Corpuscular Hemoglobin 28.9 L Mean Corpuscular Hemoglobin Concent 33.3 Red Cell Distribution Width 13.9 Platelet Count 247 Mean Platelet Volume 9.9 Immature Granulocytes % 0.600 H Neutrophils % 81.8 H Lymphocytes % 8.0 L Monocytes % 8.1 Eosinophils % 1.0 Basophils % 0.5 Nucleated Red Blood Cells % 0.0 Immature Granulocytes # 0.080 H Neutrophils # 10.7 H Lymphocytes # 1.1 Monocytes # 1.1 H Eosinophils # 0.1 Basophils # 0.1 Nucleated Red Blood Cells # 0.0 Sodium Level 145 H Potassium Level 4.6 Chloride Level 114 H Carbon Dioxide Level 21 Anion Gap 10 Blood Urea Nitrogen 95 H Creatinine 4.67 #H Est Glomerular Filtrat Rate mL/min Glucose Level 101 Calcium Level 8.1 L Phosphorus Level 4.8 Magnesium Level 1.7 Albumin 2.4 #L Creatine Kinase < 20 L Creatine Kinase Index Creatinine Kinase MB (Mass) 3.17 H Troponin I 0.135 *H Medications Medication Current Medications Amlodipine Besylate (Norvasc) 10 mg DAILY PO ; Start 02/04/19 at 09:00 Aspirin (Halfprin) 81 mg DAILY PO ; Start 02/04/19 at 09:00 Cyclosporine (Restasis) 1 drop Q12 BOTH EYES Last administered on 02/05/19at 09:56; Admin Dose 1 DROP; Start 02/03/19 at 21:00 Diclofenac Sodium (Voltaren 1% Gel) 2 gm QID TP ; Start 02/03/19 at 17:00 Donepezil HCl (Aricept) 5 mg DAILY PO ; Start 02/04/19 at 09:00 Metoprolol Succinate (Toprol Xl) 50 mg DAILY PO ; Start 02/04/19 at 09:00 Pentoxifylline (Trental) 400 mg WITH MEALS PO Last administered on 02/03/19at 21:38; Admin Dose 400 MG; Start 02/03/19 at 18:00 Ranolazine (Ranexa) 500 mg Q12 PO Last administered on 02/04/19at 20:52; Admin Dose 500 MG; Start 02/03/19 at 21:00 Tiotropium [place] (Spiriva) 1 inh DAILY INH Last administered on 02/04/19 08:44; Admin Dose 1 INH; Start 02/04/19 at 09:00 Levalbuterol (Xopenex Neb) 0.63 mg Q4H RESP THERAPY PRN HHN shortness of breath; Start 02/03/19 at 15:30 IV Flush (NS 3 ml) 3 ml PER PROTOCOL IV ; Start 02/03/19 at 15:30 Ondansetron HCl (Zofran Inj) 4 mg Q6H PRN IV NAUSEA/VOMITING; Start 02/03/19 at 15:30 Acetaminophen (Tylenol Tab) 650 mg Q6H PRN PO .PAIN 1-3 OR TEMP; Start 02/03/19 at 15:30 Docusate Sodium (Colace) 100 mg Q12H PRN PO .CONSTIPATION; Start 02/03/19 at 15:30 Magnesium Hydroxide (Milk Of Mag) 30 ml DAILY PRN PO .CONSTIPATION; Start 02/03/19 at 15:30 Heparin Sodium (Porcine) (Heparin (5000 Units/1ml)) 5,000 unit Q12 SC Last administered on 02/03/19at 21:38; Admin Dose 5,000 UNIT; Start 02/03/19 at 21:00; Status Hold Cefepime HCl 50 ml @ 100 mls/hr Q24H IV Last administered on 02/04/19 14:00; Admin Dose 100 MLS/HR; Start 02/04/19 at 14:00 Tamsulosin HCl (Flomax) 0.4 mg BID PO Last administered on 02/04/19 20:52; Admin Dose 0.4 MG; Start 02/04/19 at 09:00 Morphine Sulfate (morphine) 2 mg Q4H PRN IV SEVERE PAIN LEVEL 7-10 Last administered on 02/04/19 18:35; Admin Dose 2 MG; Start 02/03/19 at 16:30 Arformoterol Tartrate (Brovana (Neb)) 2 ml BID RESP THERAPY INH Last administered on 02/05/19 07:57; Admin Dose 2 ML; Start 02/03/19 at 22:00 Budesonide (Pulmicort (Neb)) 0.5 mg Q12H RESP THERAPY INH Last administered on 02/05/19 07:57; Admin Dose 0.5 MG; Start 02/03/19 at 22:00 Pantoprazole (Protonix Iv) 40 mg BID@06,18 IV Last administered on 02/04/19at 17:38; Admin Dose 40 MG; Start 02/04/19 at 18:00 Hydralazine HCl (Apresoline) 5 mg Q6H PRN IV ELEVATED BLOOD PRESSURE; Start 02/04/19 at 20:30 Sodium Chloride 1,000 ml @ 100 mls/hr Q10H IV Last administered on 02/05/19at 10:11; Admin Dose 100 MLS/HR; Start 02/05/19 at 09:30 Nitroglycerin (Nitroglycerin (Sl Tab) 0.4 Mg) 1 tab Q5M PRN SL ANGINA Last administered on 02/05/19at 10:29; Admin Dose 1 TAB; Start 02/05/19 at 10:30 Bisacodyl (Dulcolax) 10 mg ONCE ONCE PO ; Start 02/05/19 at 16:00; Stop 02/05/19 at 16:01 Polyethylene Glycol/ Electrolytes (Golytely) 2,000 ml ONCE ONCE PO ; Start 02/05/19 at 16:30; Stop 02/05/19 at 16:31 Polyethylene Glycol/ Electrolytes (Golytely) 2,000 ml 2nd Dose (GI Prep) ONCE PO ; Start 02/06/19 at 06:30; Stop 02/06/19 at 06:31 Bisacodyl (Dulcolax) 10 mg 2nd Dose (GI Prep) ONCE PO ; Start 02/06/19 at 06:30; Stop 02/06/19 at 06:31 JAE DURAN MD Feb 05, 2019 14:29
[2019-02-05] MEDS: CEFEPIME 1GM/50 ML (PMX) 50 ML IV SCH (14:53)
--- NOTE | 2019-02-05 15:01 | CONS ---
Assessment/Plan Assessment/Plan Hospital Course (Demo Recall) IMP: 1.Chest pain-minimal positive troponin in the setting of renal failure and severe anemia. Likley type 2 demand infarct 2.Cardiomyopathy-EF 40-45% by echo 11/04/18 3.anemia-worsening 4.renal failure-acute on chrinic 5.PAD Recc: -Tele -trend cardiac enzymes -start oral nitrates as patient will comply -Contniue BB as patient will comply -transfuse PRBC's as necesssary -will d/c trental and continue asa as tolerated only given severe anemia -Continue ranexa as patient will comply -pnding endoscopy to assess etiology of anemia Consultation Date/Type/Reason Admit Date/Time Feb 03, 2019 at 14:25 Initial Consult Date 02/05/19 Type of Consult Cardiology Reason for Consultation chest pain Requesting Provider: JAE DURAN MD Date/Time of Note DATE: 02/05/19 TIME: 14:54 Exam/Review of Systems Vital Signs Vitals Vital Signs Date Temp Pulse Resp B/P (MAP) Pulse Ox O2 O2 Flow FiO2 Time Delivery Rate 02/05/19 100 12:00 02/05/19 98.3 22 113/62 Nasal 3.0 11:18 (79) Cannula 02/05/19 96 07:58 Intake and Output 02/04/19 02/04/19 02/05/19 1515:00 23:00 07:00 IntakeIntake Total 100 ml 1725 ml 400 ml OutputOutput Total 2350 ml 650 ml 2100 ml BalanceBalance -2250 ml 1075 ml -1700 ml Exam Exam Review of Systems: CONSTITUTIONAL: No fevers, chills. PULMONARY: No sob CARDIOVASCULAR:chest pain GASTROINTESTINAL: No nausea/vomiting. GENITOURINARY: No hematuria/dysuria. MUSCULOSKELETAL: No myagias/arthalgias. PSYCHIATRIC: The patient denies depression. NEUROLOGIC: No weakness Constitutional: alert, oriented Psych: no complaints Head: normocephalic ENMT: mucosa pink and moist Neck: supple, jvd (9 cm wter) Respiratory: diminished breath sounds (at bases/B) Cardiovascular: regular rate and rhythm Gastrointestinal: soft, non-tender Musculoskeletal: muscle tone (normal) Extremities: edema (none) Neurological: other (No focal deficits) Labs Result Diagram: 02/05/19 0542 02/05/19 0542 Results 24hrs Laboratory Tests Test 02/04/19 17:27 02/05/19 05:42 02/05/19 10:53 Bedside Glucose 176 White Blood Count 13.1 #H Red Blood Count 2.49 L Hemoglobin 7.2 L Hematocrit 21.6 L Mean Corpuscular Volume 86.7 Mean Corpuscular Hemoglobin 28.9 L Mean Corpuscular Hemoglobin Concent 33.3 Red Cell Distribution Width 13.9 Platelet Count 247 Mean Platelet Volume 9.9 Immature Granulocytes % 0.600 H Neutrophils % 81.8 H Lymphocytes % 8.0 L Monocytes % 8.1 Eosinophils % 1.0 Basophils % 0.5 Nucleated Red Blood Cells % 0.0 Immature Granulocytes # 0.080 H Neutrophils # 10.7 H Lymphocytes # 1.1 Monocytes # 1.1 H Eosinophils # 0.1 Basophils # 0.1 Nucleated Red Blood Cells # 0.0 Sodium Level 145 H Potassium Level 4.6 Chloride Level 114 H Carbon Dioxide Level 21 Anion Gap 10 Blood Urea Nitrogen 95 H Creatinine 4.67 #H Est Glomerular Filtrat Rate mL/min Glucose Level 101 Calcium Level 8.1 L Phosphorus Level 4.8 Magnesium Level 1.7 Albumin 2.4 #L Creatine Kinase < 20 L Creatine Kinase Index Creatinine Kinase MB (Mass) 3.17 H Troponin I 0.135 *H Medications Medications Current Medications Amlodipine Besylate (Norvasc) 10 mg DAILY PO ; Start 02/04/19 at 09:00 Aspirin (Halfprin) 81 mg DAILY PO ; Start 02/04/19 at 09:00 Cyclosporine (Restasis) 1 drop Q12 BOTH EYES Last administered on 02/05/19at 09:56; Admin Dose 1 DROP; Start 02/03/19 at 21:00 Diclofenac Sodium (Voltaren 1% Gel) 2 gm QID TP ; Start 02/03/19 at 17:00 Donepezil HCl (Aricept) 5 mg DAILY PO ; Start 02/04/19 at 09:00 Metoprolol Succinate (Toprol Xl) 50 mg DAILY PO ; Start 02/04/19 at 09:00 Pentoxifylline (Trental) 400 mg WITH MEALS PO Last administered on 02/03/19at 21:38; Admin Dose 400 MG; Start 02/03/19 at 18:00 Ranolazine (Ranexa) 500 mg Q12 PO Last administered on 02/04/19 20:52; Admin Dose 500 MG; Start 02/03/19 at 21:00 Tiotropium [place] (Spiriva) 1 inh DAILY INH Last administered on 02/04/19 08:44; Admin Dose 1 INH; Start 02/04/19 at 09:00 Levalbuterol (Xopenex Neb) 0.63 mg Q4H RESP THERAPY PRN HHN shortness of breath; Start 02/03/19 at 15:30 IV Flush (NS 3 ml) 3 ml PER PROTOCOL IV ; Start 02/03/19 at 15:30 Ondansetron HCl (Zofran Inj) 4 mg Q6H PRN IV NAUSEA/VOMITING; Start 02/03/19 at 15:30 Acetaminophen (Tylenol Tab) 650 mg Q6H PRN PO .PAIN 1-3 OR TEMP; Start 02/03/19 at 15:30 Docusate Sodium (Colace) 100 mg Q12H PRN PO .CONSTIPATION; Start 02/03/19 at 15:30 Magnesium Hydroxide (Milk Of Mag) 30 ml DAILY PRN PO .CONSTIPATION; Start 02/03/19 at 15:30 Heparin Sodium (Porcine) (Heparin (5000 Units/1ml)) 5,000 unit Q12 SC Last administered on 02/03/19 21:38; Admin Dose 5,000 UNIT; Start 02/03/19 at 21:00; Status Hold Cefepime HCl 50 ml @ 100 mls/hr Q24H IV Last administered on 02/04/19 14:00; Admin Dose 100 MLS/HR; Start 02/04/19 at 14:00 Tamsulosin HCl (Flomax) 0.4 mg BID PO Last administered on 02/04/19 20:52; Admin Dose 0.4 MG; Start 02/04/19 at 09:00 Morphine Sulfate (morphine) 2 mg Q4H PRN IV SEVERE PAIN LEVEL 7-10 Last administered on 02/04/19 18:35; Admin Dose 2 MG; Start 02/03/19 at 16:30 Arformoterol Tartrate (Brovana (Neb)) 2 ml BID RESP THERAPY INH Last administered on 02/05/19 07:57; Admin Dose 2 ML; Start 02/03/19 at 22:00 Budesonide (Pulmicort (Neb)) 0.5 mg Q12H RESP THERAPY INH Last administered on 02/05/19at 07:57; Admin Dose 0.5 MG; Start 02/03/19 at 22:00 Pantoprazole (Protonix Iv) 40 mg BID@06,18 IV Last administered on 02/04/19at 17:38; Admin Dose 40 MG; Start 02/04/19 at 18:00 Hydralazine HCl (Apresoline) 5 mg Q6H PRN IV ELEVATED BLOOD PRESSURE; Start 07/15 at 20:30 Sodium Chloride 1,000 ml @ 100 mls/hr Q10H IV Last administered on 02/05/19at 10:11; Admin Dose 100 MLS/HR; Start 02/05/19 at 09:30 Nitroglycerin (Nitroglycerin (Sl Tab) 0.4 Mg) 1 tab Q5M PRN SL ANGINA Last administered on 02/05/19at 10:29; Admin Dose 1 TAB; Start 02/05/19 at 10:30 Bisacodyl (Dulcolax) 10 mg ONCE ONCE PO ; Start 02/05/19 at 16:00; Stop 02/05/19 at 16:01 Polyethylene Glycol/ Electrolytes (Golytely) 2,000 ml ONCE ONCE PO ; Start 02/05/19 at 16:30; Stop 02/05/19 at 16:31 Polyethylene Glycol/ Electrolytes (Golytely) 2,000 ml 2nd Dose (GI Prep) ONCE PO ; Start 02/06/19 at 06:30; Stop 02/06/19 at 06:31 Bisacodyl (Dulcolax) 10 mg 2nd Dose (GI Prep) ONCE PO ; Start 02/06/19 at 06:30; Stop 02/06/19 at 06:31 ELISABET MARCANO Feb 05, 2019 15:01
[2019-02-05] MEDS ORDERED: BISACODYL (EC) 5 MG TAB PO ONE (16:00)
[2019-02-05] MEDS ORDERED: PEG/ELECTROLYTES 4L BTL PO ONE (16:30)
[2019-02-05] MEDS: PANTOPRAZOLE (EC) 40 MG TAB PO SCH (21:25)
[2019-02-05] MEDS: ISOSORBIDE DINITRATE 10 MG TAB PO SCH (21:26)
[2019-02-06] VITALS (21 sets, daily range): BP systolic 116–176; BP diastolic 58–101; PULSE 72–190; RESP 16–25
[2019-02-06] MEDS: SOD CHLORIDE 0.45% 1,000 ML IV SCH ×2 (01:16→10:22)
[2019-02-06] MEDS ORDERED: BISACODYL (EC) 5 MG TAB PO ONE (06:30)
[2019-02-06] MEDS ORDERED: PEG/ELECTROLYTES 4L BTL PO ONE (06:30)
[2019-02-06] MEDS: TAMSULOSIN (SR) 0.4 MG CAP PO SCH ×2 (09:00→21:52)
[2019-02-06] MEDS: CYCLOSPORINE 0.05% OPH DROPERETTE BOTH EYES SCH ×2 (09:00→21:52)
[2019-02-06] MEDS: RANOLAZINE (SR) 500 MG TAB PO SCH ×2 (09:00→21:53)
[2019-02-06] MEDS: ISOSORBIDE DINITRATE 10 MG TAB PO SCH ×3 (09:00→21:53)
[2019-02-06] MEDS: ASPIRIN (EC) 81 MG TAB PO SCH (09:00)
[2019-02-06] MEDS ORDERED: MAGNESIUM SULFATE 2 GM/50 ML 50 ML IVPB ONE (09:00)
[2019-02-06] MEDS: DONEPEZIL 5 MG TAB PO SCH (09:00)
[2019-02-06] MEDS: PANTOPRAZOLE (EC) 40 MG TAB PO SCH (09:00)
[2019-02-06] MEDS: AMLODIPINE 10 MG TAB PO SCH (09:00)
[2019-02-06] MEDS: METOPROLOL (XL) 50 MG TAB PO SCH (09:00)
--- NOTE | 2019-02-06 09:56 | PN ---
DATE: 02/06/2019 SUBJECTIVE: The patient is stable. The patient has had excellent urinary output. No other events n oted. OBJECTIVE: VITAL SIGNS: Blood pressure is 131/69, respirations 20, pulse 112, temperature 97.7. HEENT: Head is normocephalic. NECK: Supple. HEART: Regular rate. LUNGS: Show diminished breath sounds at the base. ABDOMEN: Soft, nontender to palpation without rebound or guarding. EXTREMITIES: Negative for clubbing, cyanosis, no edema. DERMATOLOGIC: No rashes. MUSCULOSKELETAL: No joint effusion. NEUROLOGIC: No change in exam. MEDICATIONS: The patient's medications have been reviewed. LABORATORY DATA: Has been reviewed. IMAGING STUDIES: Have been reviewed. ASSESSMENT AND PLAN: 1. Nonoliguric acute kidney injury with previous baseline creatinine 2.0 mg/dL. Etiology of MARTHA is secondary to obstructive uropathy. The patient's renal function has markedly improved after Emerson ca theter placement. Will continue to monitor, continue supportive care, renally dose all meds. 2. Hyperkalemia, resolved. 3. Hypernatremia, improved. Continue to encourage free water intake. 4. Metabolic acidosis, etiology is secondary to acute kidney injury. 5. Mineral bone disorder, monitor calcium and phosphorus levels. 6. Anemia. The patient had a drop in hemoglobin and hematocrit levels. Continue to monitor. Trans fuse PRBCs as needed. Follow up with GI. She is being ruled out for GI bleed. 7. Sepsis secondary to pneumonia. Continue current antibiotic regimen. 8. Chest pain, resolved. 9. Benign prostatic hypertrophy with obstructive uropathy. Continue Flomax. Status post Emerson cath eter placement. 10. History of chronic obstructive pulmonary disease. Continue nebulizers. 11. Hypertension. Continue current blood pressure regimen. 12. Peripheral vascular disease. Continue to monitor. 13. History of heart failure. The patient is currently compensated. Monitor closely and IV fluids. Dictated By: HECTOR BERMUDEZ DO NR/NTS Conf#: [id number] DID#: [id number] CC: ELISABET MARCANO MD; JAE DURAN MD;*EndCC*
[2019-02-06] MEDS: TIOTROPIUM 18 MCG CAPSULE INHA DEV INH SCH (10:15)
[2019-02-06] MEDS: DICLOFENAC SODIUM 1% GEL 100 GM TUBE TP SCH ×5 (10:16→21:54)
[2019-02-06] MEDS: ARFORMOTEROL TARTRATE 15MCG/2 ML AMP INH SCH ×2 (10:43→22:07)
[2019-02-06] MEDS: BUDESONIDE (NEB) 0.5MG/2ML AMP INH SCH ×2 (10:43→22:07)
--- NOTE | 2019-02-06 14:26 | PN ---
Date/Time of Note Date/Time of Note DATE: 02/06/19 TIME: 14:20 Assessment/Plan VTE Prophylaxis Risk score (from Ns)>0 risk: 8 SCD applied (from Ns): Yes Pharmacological prophylaxis: NA/contraindicated Pharm contraindication: bleeding Lines/Catheters IV Catheter Type (from Nrsg): Peripheral IV Urinary Cath still in place: Yes Reason Cath still needed: urinary retention Assessment/Plan Assessment/Plan 1. Acute chest pain - appears more GI related - Cardiology on board and appreciate input - trop slightly elevated and most likely secondary to type 2 demand - recent ECHO from 10/2018 reveals EF 40-45% 2. Right lower lobe pneumonia, HCAP - nebs PRN and will deescalate antibiotics - on home O2 3. MARTHA on CKD- improving - returning to baseline - most likely post obstructive etiology given improvement after mcrae placed. - Nephrology consultation appreciated. - renal US shows b/l hydro and medical disease - IVF on board - avoid nephrotoxic agents 4. Systolic heart failure - elevated BNP noted but does not appear overloaded - CXR negative for pulmonary congestion and no peripheral edema appreciated 5. Leukocytosis- resolved - most likely secondary to #2 6. BPH - on flomax 7. COPD - continue O2 and neb tx - no exacerbation sx noted 8. HTN - BP stable - continue home medications and adjust as needed 9. PAD - stable - seen by Dr. Waite in the past 10. Anemia, ?blood loss - hgb remains low and will transfuse PRBC today - GI consultation appreciated and EGD/ colonoscopy today - PPI BID 12. Disposition - Plans for EGD/colonoscopy today Result Diagram: 02/06/19 0536 02/06/19 0536 Results 24hrs Laboratory Tests Test 02/05/19 18:36 02/06/19 00:33 02/06/19 05:30 02/06/19 05:36 Creatine Kinase < 20 L < 20 L Creatine Kinase Index Creatinine Kinase MB 3.36 H 2.54 H (Mass) Troponin I 0.244 *H 0.275 *H Stool Occult Blood POSITIVE White Blood Count 10.8 Red Blood Count 2.15 L Hemoglobin 6.3 *L Hematocrit 18.8 L Mean Corpuscular 87.4 Volume Mean Corpuscular 29.3 Hemoglobin Mean Corpuscular 33.5 Hemoglobin Concent Red Cell 14.1 Distribution Width Platelet Count 214 Mean Platelet Volume 10.0 Immature 0.700 H Granulocytes % Neutrophils % 83.1 H Lymphocytes % 10.7 L Monocytes % 5.1 Eosinophils % 0.1 Basophils % 0.3 Nucleated Red Blood 0.0 Cells % Immature 0.080 H Granulocytes # Neutrophils # 8.9 H Lymphocytes # 1.2 Monocytes # 0.6 Eosinophils # 0.0 Basophils # 0.0 Nucleated Red Blood 0.0 Cells # Sodium Level 142 Potassium Level 4.1 Chloride Level 113 H Carbon Dioxide Level 24 Anion Gap 5 Blood Urea Nitrogen 79 H Creatinine 2.31 #H Glucose Level 112 Calcium Level 7.6 L Phosphorus Level 3.6 Magnesium Level 1.5 L Albumin 2.1 L Subjective 24 Hr Interval Summary Free Text/Dictation Patient still with epigastric chest discomfort but now asking for food due to hunger. Agreeable to EGD/colonoscopy today. Exam/Review of Systems Exam Vitals Vital Signs Date Temp Pulse Resp B/P (MAP) Pulse Ox O2 O2 Flow FiO2 Time Delivery Rate 02/06/19 Nasal 3.0 12: Cannula 02/06/19 97.9 114 22 152/70 96 11:11 (97) Intake and Output 02/05/19 02/05/19 02/06/19 1515:00 23:00 07:00 IntakeIntake Total 750 ml 2600 ml OutputOutput Total 2200 ml 1000 ml BalanceBalance -1450 ml 1600 ml Exam General: distress secondary to pain. answering questions appropriately Chest: nontender CVS: S1, S2, regular rhythm, tachycardia, no murmurs Lungs: Diminished breath sounds at bases. no wheezing appreciated Abd: soft, epigastric tenderness, nondistended. no rebound or guarding. bowel sounds present diffusely Ext: moving all extremities. no cyanosis, clubbing, or edema Skin: no rashes or lesions appreciated Results Results 24hrs Laboratory Tests Test 02/05/19 18:36 02/06/19 00:33 02/06/19 05:30 02/06/19 05:36 Creatine Kinase < 20 L < 20 L Creatine Kinase Index Creatinine Kinase MB 3.36 H 2.54 H (Mass) Troponin I 0.244 *H 0.275 *H Stool Occult Blood POSITIVE White Blood Count 10.8 Red Blood Count 2.15 L Hemoglobin 6.3 *L Hematocrit 18.8 L Mean Corpuscular 87.4 Volume Mean Corpuscular 29.3 Hemoglobin Mean Corpuscular 33.5 Hemoglobin Concent Red Cell 14.1 Distribution Width Platelet Count 214 Mean Platelet Volume 10.0 Immature 0.700 H Granulocytes % Neutrophils % 83.1 H Lymphocytes % 10.7 L Monocytes % 5.1 Eosinophils % 0.1 Basophils % 0.3 Nucleated Red Blood 0.0 Cells % Immature 0.080 H Granulocytes # Neutrophils # 8.9 H Lymphocytes # 1.2 Monocytes # 0.6 Eosinophils # 0.0 Basophils # 0.0 Nucleated Red Blood 0.0 Cells # Sodium Level 142 Potassium Level 4.1 Chloride Level 113 H Carbon Dioxide Level 24 Anion Gap 5 Blood Urea Nitrogen 79 H Creatinine 2.31 #H Glucose Level 112 Calcium Level 7.6 L Phosphorus Level 3.6 Magnesium Level 1.5 L Albumin 2.1 L Medications Medication Current Medications Amlodipine Besylate (Norvasc) 10 mg DAILY PO ; Start 02/04/19 at 09:00 Aspirin (Halfprin) 81 mg DAILY PO ; Start 02/04/19 at 09:00 Cyclosporine (Restasis) 1 drop Q12 BOTH EYES Last administered on 02/06/19at 09:00; Admin Dose 1 DROP; Start 02/03/19 at 21:00 Diclofenac Sodium (Voltaren 1% Gel) 2 gm QID TP Last administered on 02/06/19at 12:53; Admin Dose 2 GM; Start 02/03/19 at 17:00 Donepezil HCl (Aricept) 5 mg DAILY PO ; Start 02/04/19 at 09:00 Metoprolol Succinate (Toprol Xl) 50 mg DAILY PO ; Start 02/04/19 at 09:00 Ranolazine (Ranexa) 500 mg Q12 PO Last administered on 02/05/19at 21:25; Admin Dose 500 MG; Start 02/03/19 at 21:00 Tiotropium [place] (Spiriva) 1 inh DAILY INH Last administered on 02/06/19at 10:15; Admin Dose 1 INH; Start 02/04/19 at 09:00 Levalbuterol (Xopenex Neb) 0.63 mg Q4H RESP THERAPY PRN HHN shortness of breath; Start 02/03/19 at 15:30 IV Flush (NS 3 ml) 3 ml PER PROTOCOL IV ; Start 02/03/19 at 15:30 Ondansetron HCl (Zofran Inj) 4 mg Q6H PRN IV NAUSEA/VOMITING; Start 02/03/19 at 15:30 Acetaminophen (Tylenol Tab) 650 mg Q6H PRN PO .PAIN 1-3 OR TEMP; Start 02/03/19 at 15:30 Docusate Sodium (Colace) 100 mg Q12H PRN PO .CONSTIPATION; Start 02/03/19 at 15:30 Magnesium Hydroxide (Milk Of Mag) 30 ml DAILY PRN PO .CONSTIPATION; Start 02/03/19 at 15:30 Heparin Sodium (Porcine) (Heparin (5000 Units/1ml)) 5,000 unit Q12 SC Last administered on 02/03/19at 21:38; Admin Dose 5,000 UNIT; Start 02/03/19 at 21:00; Status Hold Tamsulosin HCl (Flomax) 0.4 mg BID PO Last administered on 02/05/19 21:26; Admin Dose 0.4 MG; Start 02/04/19 at 09:00 Morphine Sulfate (morphine) 2 mg Q4H PRN IV SEVERE PAIN LEVEL 7-10 Last administered on 02/04/19 18:35; Admin Dose 2 MG; Start 02/03/19 at 16:30 Arformoterol Tartrate (Brovana (Neb)) 2 ml BID RESP THERAPY INH Last administered on 02/06/19 10:43; Admin Dose 2 ML; Start 02/03/19 at 22:00 Budesonide (Pulmicort (Neb)) 0.5 mg Q12H RESP THERAPY INH Last administered on 02/06/19 10:43; Admin Dose 0.5 MG; Start 02/03/19 at 22:00 Hydralazine HCl (Apresoline) 5 mg Q6H PRN IV ELEVATED BLOOD PRESSURE; Start 02/04/19 at 20:30 Sodium Chloride 1,000 ml @ 50 mls/hr Q20H IV Last administered on 02/06/19 10:22; Admin Dose 50 MLS/HR; Start 02/05/19 at 09:30 Nitroglycerin (Nitroglycerin (Sl Tab) 0.4 Mg) 1 tab Q5M PRN SL ANGINA Last administered on 02/05/19 10:29; Admin Dose 1 TAB; Start 02/05/19 at 10:30 Isosorbide Dinitrate (Isordil) 10 mg TID PO Last administered on 02/05/19at 21:26; Admin Dose 10 MG; Start 02/05/19 at 21:00 Pantoprazole (Protonix Tab) 40 mg BID PO Last administered on 02/05/19at 21:25; Admin Dose 40 MG; Start 02/05/19 at 21:00 Cefepime HCl 50 ml @ 100 mls/hr Q24H IV ; Start 02/06/19 at 20:00 JAE DURAN MD Feb 06, 2019 14:25
--- NOTE | 2019-02-06 14:57 | RADRPT ---
Vent Rate: 114 bpm RR Interval: 526 msec IN Interval: 140 msec QRS Duration: 108 msec QT Interval: 369 msec QTC Interval: 509 msec P-R-T [place]: 83 - -22 - 117 degrees Sinus tachycardia...rate> 99 Supraventricular bigeminy...bigeminy string>4 w/ SV complexes LVH with secondary repolarization abnormality...multi-LVH criteria, abnrm ST-T Prolonged QT interval...QTc >500mS Electronically Signed By: Krishan Cruz
--- NOTE | 2019-02-06 20:07 | HPN ---
Date/Time of Note Date/Time of Note DATE: 02/06/19 TIME: 20:07 Interval H&P Admission Note Pt. seen H&P reviewed: No system changes MONICA CAI MD Feb 06, 2019 20:07
--- NOTE | 2019-02-06 20:23 | PREAC ---
Date/Time of Note Date/Time of Note DATE: 02/06/19 TIME: 20:23 Anesthesia Eval and Record Evaluation Time Pre-Procedure Interview DATE: 02/06/19 TIME: 20:23 Age 83 Sex male NPO: 8 hrs Preoperative diagnosis GI bleed Planned procedure EGD, colonoscopy Past Medical History Past Medical History: Includes Cardio: HTN, Dyslipidemia, CAD, CHF Pulm: Smoking Hx, COPD Musculoskeletal: Osteoarthritis Renal: CKD GI: GERD Heme: Anemia Surgery & Anesthesia Issues No known issue Meds Anticoagulation: No Beta Alana within 24 hr: No Reason Beta Alana not given: Pt. not on B-Alana, COPD Active Scripts Tiotropium [place]* (Spiriva*) 18 Mcg Cap.w.dev, 1 CAP INHALATION DAILY, #30 CAP 1 Refill Prov:MARC GLORIA 01/27/19 Reported Medications Naproxen* (Naproxen*) 500 Mg Tablet, 500 MG PO BID PRN for PAIN, TAB 01/20/19 Diclofenac Sodium* (Voltaren* Gel) 1% -100 Gm Gel, 2 GM TOP QID, #1 TUB 01/20/19 Budesonide-Formoterol Fumarate* (Symbicort*) 160-4.5 Hfa.aer.ad, 2 PUFF INHALATION BID, #1 EACH 01/20/19 Cyclosporine (RESTASIS) 1 Each [place], 1 DROP BOTH EYES Q12, #1 BOX 01/20/19 Ranolazine* (Ranexa*) 500 Mg Tab.sr.12h, 500 MG PO Q12, TAB 01/20/19 Tamsulosin Hcl* (Flomax*) 0.4 Mg Cap.er.24h, 0.4 MG PO DAILY, CAP 01/20/19 Linaclotide (LINZESS) 145 Mcg Capsule, 145 MCG PO DAILY, #30 CAP 01/20/19 Nebivolol Hcl* (Bystolic*) 10 Mg Tablet, 10 MG PO DAILY, #30 TAB 01/20/19 Omeprazole* (Omeprazole*) 20 Mg Capsule.dr, 20 MG PO DAILY, #30 CAP 01/20/19 Donepezil* (Aricept*) 5 Mg Tablet, 5 MG PO DAILY, TAB 01/20/19 Meloxicam* (Meloxicam*) 7.5 Mg Tablet, 7.5 MG PO DAILY, #30 TAB 01/20/19 Aspirin (Low Dose Aspirin) 81 Mg Tablet.dr, 81 MG PO DAILY, #30 TAB 01/20/19 Amlodipine Besylate* (Amlodipine Besylate*) 10 Mg Tablet, 10 MG PO DAILY, #30 TAB 01/20/19 Metoprolol Succinate* (Toprol XL*) 50 Mg Tab.er.24h, 50 MG PO DAILY, #30 TAB 01/20/19 Pentoxifylline* (Pentoxifylline*) 400 Mg Tablet.sa, 400 MG PO WITH MEALS, TAB 01/20/19 Current Medications Amlodipine Besylate (Norvasc) 10 mg DAILY PO ; Start 02/04/19 at 09:00 Aspirin (Halfprin) 81 mg DAILY PO ; Start 02/04/19 at 09:00 Cyclosporine (Restasis) 1 drop Q12 BOTH EYES Last administered on 02/06/19at 09:00; Admin Dose 1 DROP; Start 02/03/19 at 21:00 Diclofenac Sodium (Voltaren 1% Gel) 2 gm QID TP Last administered on 02/06/19at 12:53; Admin Dose 2 GM; Start 02/03/19 at 17:00 Donepezil HCl (Aricept) 5 mg DAILY PO ; Start 02/04/19 at 09:00 Metoprolol Succinate (Toprol Xl) 50 mg DAILY PO ; Start 02/04/19 at 09:00 Ranolazine (Ranexa) 500 mg Q12 PO Last administered on 02/05/19at 21:25; Admin Dose 500 MG; Start 02/03/19 at 21:00 Tiotropium [place] (Spiriva) 1 inh DAILY INH Last administered on 02/06/19at 10:15; Admin Dose 1 INH; Start 02/04/19 at 09:00 Levalbuterol (Xopenex Neb) 0.63 mg Q4H RESP THERAPY PRN HHN shortness of breath; Start 02/03/19 at 15:30 IV Flush (NS 3 ml) 3 ml PER PROTOCOL IV ; Start 02/03/19 at 15:30 Ondansetron HCl (Zofran Inj) 4 mg Q6H PRN IV NAUSEA/VOMITING; Start 02/03/19 at 15:30 Acetaminophen (Tylenol Tab) 650 mg Q6H PRN PO .PAIN 1-3 OR TEMP; Start 02/03/19 at 15:30 Docusate Sodium (Colace) 100 mg Q12H PRN PO .CONSTIPATION; Start 02/03/19 at 15:30 Magnesium Hydroxide (Milk Of Mag) 30 ml DAILY PRN PO .CONSTIPATION; Start 02/03/19 at 15:30 Heparin Sodium (Porcine) (Heparin (5000 Units/1ml)) 5,000 unit Q12 SC Last administered on 02/03/19 21:38; Admin Dose 5,000 UNIT; Start 02/03/19 at 21:00; Status Hold Tamsulosin HCl (Flomax) 0.4 mg BID PO Last administered on 02/05/19 21:26; Admin Dose 0.4 MG; Start 02/04/19 at 09:00 Morphine Sulfate (morphine) 2 mg Q4H PRN IV SEVERE PAIN LEVEL 7-10 Last administered on 02/04/19 18:35; Admin Dose 2 MG; Start 02/03/19 at 16:30 Arformoterol Tartrate (Brovana (Neb)) 2 ml BID RESP THERAPY INH Last administered on 02/06/19 10:43; Admin Dose 2 ML; Start 02/03/19 at 22:00 Budesonide (Pulmicort (Neb)) 0.5 mg Q12H RESP THERAPY INH Last administered on 02/06/19 10:43; Admin Dose 0.5 MG; Start 02/03/19 at 22:00 Hydralazine HCl (Apresoline) 5 mg Q6H PRN IV ELEVATED BLOOD PRESSURE; Start 02/04/19 at 20:30 Sodium Chloride 1,000 ml @ 50 mls/hr Q20H IV Last administered on 02/06/19 10:22; Admin Dose 50 MLS/HR; Start 02/05/19 at 09:30 Nitroglycerin (Nitroglycerin (Sl Tab) 0.4 Mg) 1 tab Q5M PRN SL ANGINA Last administered on 02/05/19 10:29; Admin Dose 1 TAB; Start 02/05/19 at 10:30 Isosorbide Dinitrate (Isordil) 10 mg TID PO Last administered on 02/05/19 21:26; Admin Dose 10 MG; Start 02/05/19 at 21:00 Pantoprazole (Protonix Tab) 40 mg BID PO Last administered on 6/12/19at 21:25; Admin Dose 40 MG; Start 02/05/19 at 21:00 Cefepime HCl 50 ml @ 100 mls/hr Q24H IV ; Start 02/06/19 at 20:00 Meds reviewed: Yes Allergies Coded Allergies: No Known Drug Allergies (Verified Allergy, Mild, 02/03/19) Allergies Reviewed: Yes Labs/Studies Labs Reviewed: Reviewed by anesthesiologist Result Diagram: 02/06/19 0536 02/06/19 0536 Laboratory Tests 02/06/19 05:36 test: N/A Studies: ECG Pre-procedure Exam Last vitals Vital Signs Date Temp Pulse Resp B/P (MAP) Pulse Ox O2 O2 Flow FiO2 Time Delivery Rate 02/06/19 Nasal 3.0 17:55 Cannula 02/06/19 190 17:13 02/06/19 98.0 22 163/78 99 15:25 (106) 02/06/19 27 10:45 Airway: Adequate mouth opening, Adequate thyromental dist Mallampati: Mallampati II Teeth: Abnormal Lung: Normal Heart: Normal ASA Physical Status ASA physical status: 4 Emergency: E Planned Anesthetic General/MAC: MAC Pre-operative Attestations Prior to commencing anesthesia and surgery, the patient was re-evaluated, there was verification of: *The patient's identity *The results of appropriate recent lab work and preoperative vital signs *The above evaluation not changing prior to induction *Anesthetic plan, risk benefits, alternative and complications discussed with patient/family; questions answered; patient/family understands, accepts and wishes to proceed. WALKER BUI Feb 06, 2019 20:23
[2019-02-06] MEDS ORDERED: PROPOFOL 20 ML ONE (20:25)
[2019-02-06] MEDS: CEFEPIME 1GM/50 ML (PMX) 50 ML IV SCH (21:52)
[2019-02-07] VITALS (10 sets, daily range): BP systolic 121–147; BP diastolic 67–76; PULSE 79–118; RESP 18–20
[2019-02-07] MEDS: PANTOPRAZOLE IV 80 MG in SOD CHLORIDE 0.9% 100 ML IV SCH ×2 (01:34→08:00)
[2019-02-07] MEDS: ARFORMOTEROL TARTRATE 15MCG/2 ML AMP INH SCH ×2 (08:44→20:00)
[2019-02-07] MEDS: BUDESONIDE (NEB) 0.5MG/2ML AMP INH SCH ×2 (08:44→20:00)
[2019-02-07] MEDS: CYCLOSPORINE 0.05% OPH DROPERETTE BOTH EYES SCH ×2 (08:52→20:49)
[2019-02-07] MEDS: DONEPEZIL 5 MG TAB PO SCH ×3 (08:52→10:04)
[2019-02-07] MEDS: ASPIRIN (EC) 81 MG TAB PO SCH ×3 (08:52→10:04)
[2019-02-07] MEDS: RANOLAZINE (SR) 500 MG TAB PO SCH ×2 (08:52→20:49)
[2019-02-07] MEDS: AMLODIPINE 10 MG TAB PO SCH (08:52)
[2019-02-07] MEDS: TAMSULOSIN (SR) 0.4 MG CAP PO SCH ×2 (08:53→20:49)
[2019-02-07] MEDS: ISOSORBIDE DINITRATE 10 MG TAB PO SCH ×3 (08:53→20:50)
[2019-02-07] MEDS: METOPROLOL (XL) 50 MG TAB PO SCH (08:53)
[2019-02-07] MEDS: TIOTROPIUM 18 MCG CAPSULE INHA DEV INH SCH (08:54)
[2019-02-07] MEDS: DICLOFENAC SODIUM 1% GEL 100 GM TUBE TP SCH ×4 (08:55→20:50)
--- NOTE | 2019-02-07 08:55 | PN ---
DATE: 02/07/2019 SUBJECTIVE: The patient is stable. The patient had an EGD yesterday. Urinary output remains adequa te. OBJECTIVE: VITAL SIGNS: Blood pressure is 147/76, respirations 20, pulse 100, temperature 97.9. HEENT: Head is normocephalic. NECK: Supple. HEART: Regular rate. LUNGS: Show diminished breath sounds at the base. ABDOMEN: Soft, nontender to palpation without rebound or guarding. EXTREMITIES: Negative for clubbing, cyanosis, no edema. DERMATOLOGIC: No rashes. MUSCULOSKELETAL: No joint effusion. NEUROLOGIC: No change in exam. MEDICATIONS: The patient's medications have been reviewed. LABORATORY DATA: Has been reviewed. IMAGING STUDIES: Have been reviewed. ASSESSMENT AND PLAN: 1. Nonoliguric acute kidney injury with previous baseline creatinine around 2.0 mg/dL. Etiology of MARTHA is secondary to obstructive uropathy. The patient's renal function has improved after Emerson cath eter placement. Continue to monitor, continue supportive care, renally dose all medication. 2. Anemia. Monitor H and H levels. 3. Mineral bone disorder. Monitor calcium and phosphorus levels. 4. Peptic ulcer disease. The patient is status post EGD with a noted ulcer. Continue Protonix. Fo llow up with GI. 5. Sepsis secondary to pneumonia. The patient is completing antibiotic course. 6. Chest pain, resolved. 7. Benign prostatic hypertrophy with obstructive uropathy. Continue Flomax. Continue Emerson cathete r. 8. History of chronic obstructive pulmonary disease. Continue nebulizers. 9. Hypertension. Continue current blood pressure regimen. 10. Peripheral vascular disease. Continue to monitor. 11. History of heart failure. The patient appears compensated. Will discontinue IV fluids. Dictated By: HECTOR BERMUDEZ DO NR/NTS Conf#: [id number] DID#: [id number] CC: JAE DURAN MD; ELISABET MARCANO MD;*End*
[2019-02-07] MEDS ORDERED: FAMOTIDINE IV 40 MG in SOD CHLORIDE 0.9% 250 ML IV SCH (09:00)
[2019-02-07] MEDS: PANTOPRAZOLE (EC) 40 MG TAB PO SCH (10:00)
--- NOTE | 2019-02-07 13:01 | PAC ---
Date/Time of Note Date/Time of Note DATE: 02/07/19 TIME: 13:01 Post-Anesthesia Notes Post-Anesthesia Note Last documented vital signs Vital Signs Date Temp Pulse Resp B/P (MAP) Pulse Ox O2 O2 Flow FiO2 Time Delivery Rate 02/07/19 103 12:14 02/07/19 98.0 20 121/68 93 Nasal 11:24 (85) Cannula 02/07/19 2.0 08:39 02/07/19 27 05:12 Activity: WNL Respiratory function: WNL Cardiovascular function: WNL Mental status: Baseline Pain reasonably controlled: Yes Hydration appropriate: Yes Nausea/Vomiting absent: Yes WALKER BUI Feb 07, 2019 13:01
--- NOTE | 2019-02-07 13:18 | PN ---
Date/Time of Note Date/Time of Note DATE: 02/07/19 TIME: 13:09 Assessment/Plan VTE Prophylaxis Risk score (from Ns)>0 risk: 5 SCD applied (from Ns): Yes Pharmacological prophylaxis: NA/contraindicated Pharm contraindication: bleeding Lines/Catheters IV Catheter Type (from Nrsg): Peripheral IV Urinary Cath still in place: Yes Reason Cath still needed: urinary retention Assessment/Plan Assessment/Plan 1. Acute chest pain- resolving - most likely GI related since resolved following EGD - Cardiology on board and appreciate input - trop slightly elevated and most likely secondary to type 2 demand - recent ECHO from 10/2018 reveals EF 40-45% 2. Right lower lobe pneumonia, HCAP - nebs PRN and will continue for another 2 days - on home O2 3. MARTHA on CKD- improving - renal function continues to improve daily - most likely post obstructive etiology given improvement after mcrae placed. - Nephrology consultation appreciated. - renal US shows b/l hydro and medical disease - IVF on board - avoid nephrotoxic agents 4. Gastric ulcers, gastritis, esophagitis - Seen on EGD 02/06 - GI consultation appreciated and will continue on PPI - will need Carafate when tolerating PO intake - monitor for further bleeding 5. BPH - on flomax 6. COPD - continue O2 and neb tx - no exacerbation sx noted 7. HTN - BP stable - continue home medications and adjust as needed 8. PAD - stable - seen by Dr. Waite in the past 9. Anemia, blood loss - hgb remains low and will transfuse PRBC today - GI consultation appreciated and EGD/ colonoscopy today - PPI BID 10. Systolic heart failure - elevated BNP noted but does not appear overloaded - CXR negative for pulmonary congestion and no peripheral edema appreciated 11. Disposition - Continue monitoring hemoglobin and will transfuse if <7. Result Diagram: 02/07/19 1206 02/07/19 0520 Results 24hrs Laboratory Tests Test 02/07/19 00:19 02/07/19 05:20 02/07/19 05:30 02/07/19 12:06 Hemoglobin 8.3 #L 8.2 L 7.2 L Hematocrit 24.5 #L 23.7 L 21.3 L White Blood Count 11.8 H Red Blood Count 2.83 #L Mean Corpuscular 85.2 Volume Mean Corpuscular 28.6 L Hemoglobin Mean Corpuscular 33.6 Hemoglobin Concen t Red Cell 13.7 Distribution Width Platelet Count 198 Mean Platelet 10.1 Volume Immature 1.700 H Granulocytes % Neutrophils % 76.6 Lymphocytes % 13.2 L Monocytes % 6.9 Eosinophils % 1.1 Basophils % 0.5 Nucleated Red 0.3 H Blood Cells % Immature 0.200 H Granulocytes # Neutrophils # 9.1 H Lymphocytes # 1.6 Monocytes # 0.8 Eosinophils # 0.1 Basophils # 0.1 Nucleated Red 0.0 Blood Cells # Sodium Level 142 Potassium Level 3.8 Chloride Level 111 H Carbon Dioxide 25 Level Anion Gap 6 Blood Urea 66 H Nitrogen Creatinine 1.80 H Est Glomerular Filtrat Rate mL/min Glucose Level 97 Calcium Level 7.7 L Phosphorus Level 2.8 Magnesium Level 1.9 Lab Scanned BLOOD TRANSFUSIO Report N Subjective 24 Hr Interval Summary Free Text/Dictation Patient states chest pain has resolved and only complaining of increase thirst given has been NPO for so many days. Exam/Review of Systems Exam Vitals Vital Signs Date Temp Pulse Resp B/P (MAP) Pulse Ox O2 O2 Flow FiO2 Time Delivery Rate 02/07/19 103 12:14 02/07/19 98.0 20 121/68 93 Nasal 11:24 (85) Cannula 02/07/19 2.0 08:39 02/07/19 27 05:12 Intake and Output 02/06/19 02/06/19 02/07/19 1515:00 23:00 07:00 IntakeIntake Total 100 ml OutputOutput Total 300 ml BalanceBalance -200 ml Exam General: no acute distress. answering questions appropriately Chest: nontender CVS: S1, S2, regular rhythm, tachycardia, no murmurs Lungs: Diminished breath sounds at bases. no wheezing appreciated Abd: soft, nontender, nondistended. no rebound or guarding. bowel sounds present diffusely Ext: moving all extremities. no cyanosis, clubbing, or edema Skin: no rashes or lesions appreciated Results Results 24hrs Laboratory Tests Test 02/07/19 00:19 02/07/19 05:20 02/07/19 05:30 02/07/19 12:06 Hemoglobin 8.3 #L 8.2 L 7.2 L Hematocrit 24.5 #L 23.7 L 21.3 L White Blood Count 11.8 H Red Blood Count 2.83 #L Mean Corpuscular 85.2 Volume Mean Corpuscular 28.6 L Hemoglobin Mean Corpuscular 33.6 Hemoglobin Concen t Red Cell 13.7 Distribution Width Platelet Count 198 Mean Platelet 10.1 Volume Immature 1.700 H Granulocytes % Neutrophils % 76.6 Lymphocytes % 13.2 L Monocytes % 6.9 Eosinophils % 1.1 Basophils % 0.5 Nucleated Red 0.3 H Blood Cells % Immature 0.200 H Granulocytes # Neutrophils # 9.1 H Lymphocytes # 1.6 Monocytes # 0.8 Eosinophils # 0.1 Basophils # 0.1 Nucleated Red 0.0 Blood Cells # Sodium Level 142 Potassium Level 3.8 Chloride Level 111 H Carbon Dioxide 25 Level Anion Gap 6 Blood Urea 66 H Nitrogen Creatinine 1.80 H Est Glomerular Filtrat Rate mL/min Glucose Level 97 Calcium Level 7.7 L Phosphorus Level 2.8 Magnesium Level 1.9 Lab Scanned BLOOD TRANSFUSIO Report N Medications Medication Current Medications Amlodipine Besylate (Norvasc) 10 mg DAILY PO Last administered on 02/07/19 08:52; Admin Dose 10 MG; Start 02/04/19 at 09:00 Aspirin (Halfprin) 81 mg DAILY PO ; Start 02/04/19 at 09:00 Cyclosporine (Restasis) 1 drop Q12 BOTH EYES Last administered on 02/07/19 08:52; Admin Dose 1 DROP; Start 02/03/19 at 21:00 Diclofenac Sodium (Voltaren 1% Gel) 2 gm QID TP Last administered on 02/07/19 08:55; Admin Dose 2 GM; Start 02/03/19 at 17:00 Donepezil HCl (Aricept) 5 mg DAILY PO ; Start 02/04/19 at 09:00 Metoprolol Succinate (Toprol Xl) 50 mg DAILY PO Last administered on 02/07/19 08:53; Admin Dose 50 MG; Start 02/04/19 at 09:00 Ranolazine (Ranexa) 500 mg Q12 PO Last administered on 02/07/19 08:52; Admin Dose 500 MG; Start 02/03/19 at 21:00 Tiotropium [place] (Spiriva) 1 inh DAILY INH Last administered on 02/07/19 08: 54; Admin Dose 1 INH; Start 02/04/19 at 09:00 Levalbuterol (Xopenex Neb) 0.63 mg Q4H RESP THERAPY PRN HHN shortness of breath; Start 02/03/19 at 15:30 IV Flush (NS 3 ml) 3 ml PER PROTOCOL IV ; Start 02/03/19 at 15:30 Ondansetron HCl (Zofran Inj) 4 mg Q6H PRN IV NAUSEA/VOMITING; Start 02/03/19 at 15:30 Acetaminophen (Tylenol Tab) 650 mg Q6H PRN PO .PAIN 1-3 OR TEMP; Start 02/03/19 at 15:30 Docusate Sodium (Colace) 100 mg Q12H PRN PO .CONSTIPATION; Start 02/03/19 at 15:30 Magnesium Hydroxide (Milk Of Mag) 30 ml DAILY PRN PO .CONSTIPATION; Start 02/03/19 at 15:30 Heparin Sodium (Porcine) (Heparin (5000 Units/1ml)) 5,000 unit Q12 SC Last administered on 02/03/19at 21:38; Admin Dose 5,000 UNIT; Start 02/03/19 at 21:00; Status Hold Tamsulosin HCl (Flomax) 0.4 mg BID PO Last administered on 02/07/19 08:53; Admin Dose 0.4 MG; Start 02/04/19 at 09:00 Morphine Sulfate (morphine) 2 mg Q4H PRN IV SEVERE PAIN LEVEL 7-10 Last administered on 02/04/19 18:35; Admin Dose 2 MG; Start 02/03/19 at 16:30 Arformoterol Tartrate (Brovana (Neb)) 2 ml BID RESP THERAPY INH Last administered on 02/07/19 08:44; Admin Dose 2 ML; Start 02/03/19 at 22:00 Budesonide (Pulmicort (Neb)) 0.5 mg Q12H RESP THERAPY INH Last administered on 02/07/19 08:44; Admin Dose 0.5 MG; Start 02/03/19 at 22:00 Hydralazine HCl (Apresoline) 5 mg Q6H PRN IV ELEVATED BLOOD PRESSURE; Start 02/04/19 at 20:30 Nitroglycerin (Nitroglycerin (Sl Tab) 0.4 Mg) 1 tab Q5M PRN SL ANGINA Last administered on 02/05/19at 10:29; Admin Dose 1 TAB; Start 02/05/19 at 10:30 Isosorbide Dinitrate (Isordil) 10 mg TID PO Last administered on 02/07/19at 13:03; Admin Dose 10 MG; Start 02/05/19 at 21:00 Cefepime HCl 50 ml @ 100 mls/hr Q24H IV Last administered on 02/06/19at 21:52; Admin Dose 100 MLS/HR; Start 02/06/19 at 20:00 Pantoprazole (Protonix Tab) 40 mg DAILY@06 PO Last administered on 02/07/19at 10:00; Admin Dose 40 MG; Start 02/07/19 at 09:30 JAE DURAN MD Feb 07, 2019 13:18
--- NOTE | 2019-02-07 14:12 | CONS ---
Assessment/Plan Assessment/Plan Hospital Course (Demo Recall) IMP: 1.Chest pain-minimal positive troponin in the setting of renal failure and severe anemia. Likley type 2 demand infarct 2.Cardiomyopathy-EF 40-45% by echo 11/04/18 3.anemia-worsening 4.renal failure-acute on chrinic 5.PAD 6. Duodenal ulcer by endoscopy this admit Recc: -Tele -trend cardiac enzymes -start oral nitrates as patient will comply -Contniue BB as patient will comply -transfuse PRBC's as necesssary -Continue PPI -Judson hold asa at this time given findings of deodenal ulcer -Continue ranexa as patient will comply -pnding endoscopy to assess etiology of anemia Consultation Date/Type/Reason Admit Date/Time Feb 03, 2019 at 14:25 Initial Consult Date 02/05/19 Type of Consult Cardiology Reason for Consultation chest pain Requesting Provider: JAE DURAN MD Date/Time of Note DATE: 02/07/19 TIME: 14:10 Exam/Review of Systems Vital Signs Vitals Vital Signs Date Temp Pulse Resp B/P (MAP) Pulse Ox O2 O2 Flow FiO2 Time Delivery Rate 02/07/19 103 12:14 02/07/19 98.0 20 121/68 93 Nasal 11:24 (85) Cannula 02/07/19 2.0 08:39 02/07/19 27 05:12 Intake and Output 02/06/19 02/06/19 02/07/19 1515:00 23:00 07:00 IntakeIntake Total 100 ml OutputOutput Total 300 ml BalanceBalance -200 ml Exam Exam Review of Systems: CONSTITUTIONAL: No fevers, chills. PULMONARY: No sob CARDIOVASCULAR: No chest pain/palpitations GASTROINTESTINAL: No nausea/vomiting. GENITOURINARY: No hematuria/dysuria. MUSCULOSKELETAL: No myagias/arthalgias. PSYCHIATRIC: The patient denies depression. NEUROLOGIC: No weakness Constitutional: alert Psych: no complaints Head: normocephalic ENMT: mucosa pink and moist Neck: supple, jvd (9 cm water) Respiratory: clear to auscultation Cardiovascular: regular rate and rhythm Gastrointestinal: soft, non-tender Musculoskeletal: muscle tone (normal) Extremities: edema (none) Neurological: other (No focal deficits) Labs Result Diagram: 02/07/19 1206 02/07/19 0520 Results 24hrs Laboratory Tests Test 02/07/19 00:19 02/07/19 05:20 02/07/19 05:30 02/07/19 12:06 Hemoglobin 8.3 #L 8.2 L 7.2 L Hematocrit 24.5 #L 23.7 L 21.3 L White Blood Count 11.8 H Red Blood Count 2.83 #L Mean Corpuscular 85.2 Volume Mean Corpuscular 28.6 L Hemoglobin Mean Corpuscular 33.6 Hemoglobin Concen t Red Cell 13.7 Distribution Width Platelet Count 198 Mean Platelet 10.1 Volume Immature 1.700 H Granulocytes % Neutrophils % 76.6 Lymphocytes % 13.2 L Monocytes % 6.9 Eosinophils % 1.1 Basophils % 0.5 Nucleated Red 0.3 H Blood Cells % Immature 0.200 H Granulocytes # Neutrophils # 9.1 H Lymphocytes # 1.6 Monocytes # 0.8 Eosinophils # 0.1 Basophils # 0.1 Nucleated Red 0.0 Blood Cells # Sodium Level 142 Potassium Level 3.8 Chloride Level 111 H Carbon Dioxide 25 Level Anion Gap 6 Blood Urea 66 H Nitrogen Creatinine 1.80 H Est Glomerular Filtrat Rate mL/min Glucose Level 97 Calcium Level 7.7 L Phosphorus Level 2.8 Magnesium Level 1.9 Lab Scanned BLOOD TRANSFUSIO Report N Medications Medications Current Medications Amlodipine Besylate (Norvasc) 10 mg DAILY PO Last administered on 02/07/19at 08:52; Admin Dose 10 MG; Start 02/04/19 at 09:00 Aspirin (Halfprin) 81 mg DAILY PO ; Start 02/04/19 at 09:00 Cyclosporine (Restasis) 1 drop Q12 BOTH EYES Last administered on 02/07/19at 08:52; Admin Dose 1 DROP; Start 02/03/19 at 21:00 Diclofenac Sodium (Voltaren 1% Gel) 2 gm QID TP Last administered on 02/07/19at 08:55; Admin Dose 2 GM; Start 02/03/19 at 17:00 Donepezil HCl (Aricept) 5 mg DAILY PO ; Start 02/04/19 at 09:00 Metoprolol Succinate (Toprol Xl) 50 mg DAILY PO Last administered on 02/07/19at 08:53; Admin Dose 50 MG; Start 02/04/19 at 09:00 Ranolazine (Ranexa) 500 mg Q12 PO Last administered on 02/07/19 08:52; Admin Dose 500 MG; Start 02/03/19 at 21:00 Tiotropium [place] (Spiriva) 1 inh DAILY INH Last administered on 02/07/19 08:54; Admin Dose 1 INH; Start 02/04/19 at 09:00 Levalbuterol (Xopenex Neb) 0.63 mg Q4H RESP THERAPY PRN HHN shortness of barby ath; Start 02/03/19 at 15:30 IV Flush (NS 3 ml) 3 ml PER PROTOCOL IV ; Start 02/03/19 at 15:30 Ondansetron HCl (Zofran Inj) 4 mg Q6H PRN IV NAUSEA/VOMITING; Start 02/03/19 at 15:30 Acetaminophen (Tylenol Tab) 650 mg Q6H PRN PO .PAIN 1-3 OR TEMP; Start 02/03/19 at 15:30 Docusate Sodium (Colace) 100 mg Q12H PRN PO .CONSTIPATION; Start 02/03/19 at 15:30 Magnesium Hydroxide (Milk Of Mag) 30 ml DAILY PRN PO .CONSTIPATION; Start 02/03/19 at 15:30 Heparin Sodium (Porcine) (Heparin (5000 Units/1ml)) 5,000 unit Q12 SC Last administered on 02/03/19 21:38; Admin Dose 5,000 UNIT; Start 02/03/19 at 21:00; Status Hold Tamsulosin HCl (Flomax) 0.4 mg BID PO Last administered on 02/07/19 08:53; Adm in Dose 0.4 MG; Start 02/04/19 at 09:00 Morphine Sulfate (morphine) 2 mg Q4H PRN IV SEVERE PAIN LEVEL 7-10 Last administered on 02/04/19 18:35; Admin Dose 2 MG; Start 02/03/19 at 16:30 Arformoterol Tartrate (Brovana (Neb)) 2 ml BID RESP THERAPY INH Last administered on 02/07/19 08:44; Admin Dose 2 ML; Start 02/03/19 at 22:00 Budesonide (Pulmicort (Neb)) 0.5 mg Q12H RESP THERAPY INH Last administered on 02/07/19 08:44; Admin Dose 0.5 MG; Start 02/03/19 at 22:00 Hydralazine HCl (Apresoline) 5 mg Q6H PRN IV ELEVATED BLOOD PRESSURE; Start 02/04/19 at 20:30 Nitroglycerin (Nitroglycerin (Sl Tab) 0.4 Mg) 1 tab Q5M PRN SL ANGINA Last administered on 02/05/19at 10:29; Admin Dose 1 TAB; Start 02/05/19 at 10:30 Isosorbide Dinitrate (Isordil) 10 mg TID PO Last administered on 02/07/19at 13:03; Admin Dose 10 MG; Start 02/05/19 at 21:00 Cefepime HCl 50 ml @ 100 mls/hr Q24H IV Last administered on 02/06/19 21:52; Admin Dose 100 MLS/HR; Start 02/06/19 at 20:00 Pantoprazole (Protonix Tab) 40 mg DAILY@06 PO Last administered on 02/07/19at 10:00; Admin Dose 40 MG; Start 02/07/19 at 09:30 ELISABET MARCANO Feb 07, 2019 14:12
[2019-02-07] MEDS ORDERED: SOD CHLORIDE 0.9% 250 ML IV* ONE (16:52)
--- NOTE | 2019-02-07 17:03 | PN ---
Date/Time of Note Date/Time of Note DATE: 02/07/19 TIME: 16:57 Assessment/Plan VTE Prophylaxis Risk score (from Ns)>0 risk: 5 SCD applied (from Ns): Yes Pharmacological prophylaxis: NA/contraindicated Pharm contraindication: bleeding Lines/Catheters IV [facility] (from [facility]): Peripheral IV Urinary Cath still in place: Yes Reason Cath still needed: other (indicate) Assessment/Plan Assessment/Plan Assessment: Acute on chronic anemia with reported dark stool That is post EGD/colonoscopy 02/06/2019 -10 mm duodenal ulcer with visible vessel -Severe erosive esophagitis -Acute gastritis, biopsied to rule out H. pylori -Hiatal hernia -Poor prep for colonoscopy Acute chest pain-being followed by cardiology Right lower lobe pneumonia-on antibiotics MARTHA on CKD Systolic heart failure COPD Hypertension Plan: Transfuse 1 unit of PRBCs Continue Protonix drip Review pathology when available Monitor H&H Transfuse for hemoglobin less than 7.5 Patient seen in collaboration with Dr. Knott Subjective: Patient is doing well today. He denies abdominal pain, nausea or vomiting. Patient was having dark stools overnight. H&H every 6 hours with last hemoglobin 7.2. Will transfuse 1 unit of PRBCs. Continue Protonix drip. Continue supportive treatment and close monitoring. PHYSICAL EXAMINATION: GENERAL: Well developed, well nourished, alert & oriented x 3, in no acute distress SKIN: No lesions, no stigmata chronic liver disease, no evidence of bleeding diathesis LYMPHATIC: No palpable lymphadenopathy. HEAD: Normocephalic, atraumatic, no tenderness. EYES: Pupils equal reactive to light and accommodation, full extraocular m ovements, sclera clear, non-icteric, no discharge. EARS/NOSE AND THROAT: Ears normal, nose normal, oropharynx normal, oral membranes well hydrated without lesions. NECK: Supple, no masses, thyroid normal, JVP within normal limits, carotids normal without bruits. CHEST: Inspection within normal limits. CARDIOVASCULAR: Heart: Regular rate and rhythm, no murmurs, gallops or rubs. Peripheral pulses present within normal limits, no cyanosis, clubbing or edemas. No pulsatile abdominal mass RESPIRATORY: Lungs clear to auscultation and percussion, no wheezing, no rubs GASTROINTESTINAL AND LIVER: Abdomen: Soft, non tenderness, non-distended, no hernias, no masses, no organomegaly, no ascites, no guarding, no rebound tenderness, normoactive bowel sounds. Rectal: Deferred. GENITOURINARY: [Male genitalia within normal limits. Emerson catheter in place EXTREMITIES: No cyanosis, clubbing or edema. Result Diagram: 02/07/19 1206 02/07/19 0520 Results 24hrs Laboratory Tests Test 02/07/19 00:19 02/07/19 05:20 02/07/19 05:30 02/07/19 12:06 Hemoglobin 8.3 #L 8.2 L 7.2 L Hematocrit 24.5 #L 23.7 L 21.3 L White Blood Count 11.8 H Red Blood Count 2.83 #L Mean Corpuscular 85.2 Volume Mean Corpuscular 28.6 L Hemoglobin Mean Corpuscular 33.6 Hemoglobin Concen t Red Cell 13.7 Distribution Width Platelet Count 198 Mean Platelet 10.1 Volume Immature 1.700 H Granulocytes % Neutrophils % 76.6 Lymphocytes % 13.2 L Monocytes % 6.9 Eosinophils % 1.1 Basophils % 0.5 Nucleated Red 0.3 H Blood Cells % Immature 0.200 H Granulocytes # Neutrophils # 9.1 H Lymphocytes # 1.6 Monocytes # 0.8 Eosinophils # 0.1 Basophils # 0.1 Nucleated Red 0.0 Blood Cells # Sodium Level 142 Potassium Level 3.8 Chloride Level 111 H Carbon Dioxide 25 Level Anion Gap 6 Blood Urea 66 H Nitrogen Creatinine 1.80 H Est Glomerular Filtrat Rate mL/min Glucose Level 97 Calcium Level 7.7 L Phosphorus Level 2.8 Magnesium Level 1.9 Lab Scanned BLOOD TRANSFUSIO Report N CC: MONICA KNOTT MD ; Exam/Review of Systems Exam Vitals Vital Signs Date Temp Pulse Resp B/P (MAP) Pulse Ox O2 O2 Flow FiO2 Time Delivery Rate 02/07/19 96 16:13 02/07/19 98.0 20 121/67 95 15:39 (85) 02/07/19 Nasal 11:24 Cannula 02/07/19 2.0 08:39 02/07/19 27 05:12 Intake and Output 02/06/19 02/06/19 02/07/19 1515:00 23:00 07:00 IntakeIntake Total 100 ml OutputOutput Total 300 ml BalanceBalance -200 ml Results Results 24hrs Laboratory Tests Test 02/07/19 00:19 02/07/19 05:20 02/07/19 05:30 02/07/19 12:06 Hemoglobin 8.3 #L 8.2 L 7.2 L Hematocrit 24.5 #L 23.7 L 21.3 L White Blood Count 11.8 H Red Blood Count 2.83 #L Mean Corpuscular 85.2 Volume Mean Corpuscular 28.6 L Hemoglobin Mean Corpuscular 33.6 Hemoglobin Concen t Red Cell 13.7 Distribution Width Platelet Count 198 Mean Platelet 10.1 Volume Immature 1.700 H Granulocytes % Neutrophils % 76.6 Lymphocytes % 13.2 L Monocytes % 6.9 Eosinophils % 1.1 Basophils % 0.5 Nucleated Red 0.3 H Blood Cells % Immature 0.200 H Granulocytes # Neutrophils # 9.1 H Lymphocytes # 1.6 Monocytes # 0.8 Eosinophils # 0.1 Basophils # 0.1 Nucleated Red 0.0 Blood Cells # Sodium Level 142 Potassium Level 3.8 Chloride Level 111 H Carbon Dioxide 25 Level Anion Gap 6 Blood Urea 66 H Nitrogen Creatinine 1.80 H Est Glomerular Filtrat Rate mL/min Glucose Level 97 Calcium Level 7.7 L Phosphorus Level 2.8 Magnesium Level 1.9 Lab Scanned BLOOD TRANSFUSIO Report N Medications Medication Current Medications Amlodipine Besylate (Norvasc) 10 mg DAILY PO Last administered on 02/07/19 08:52; Admin Dose 10 MG; Start 02/04/19 at 09:00 Cyclosporine (Restasis) 1 drop Q12 BOTH EYES Last administered on 02/07/19 08:52; Admin Dose 1 DROP; Start 02/03/19 at 21:00 Diclofenac Sodium (Voltaren 1% Gel) 2 gm QID TP Last administered on 02/07/19 08:55; Admin Dose 2 GM; Start 02/03/19 at 17:00 Donepezil HCl (Aricept) 5 mg DAILY PO ; Start 02/04/19 at 09:00 Metoprolol Succinate (Toprol Xl) 50 mg DAILY PO Last administered on 02/07/19 08:53; Admin Dose 50 MG; Start 02/04/19 at 09:00 Ranolazine (Ranexa) 500 mg Q12 PO Last administered on 02/07/19 08:52; Admin Dose 500 MG; Start 02/03/19 at 21:00 Tiotropium [place] (Spiriva) 1 inh DAILY INH Last administered on 02/07/19 08:54; Admin Dose 1 INH; Start 02/04/19 at 09:00 Levalbuterol (Xopenex Neb) 0.63 mg Q4H RESP THERAPY PRN HHN shortness of breath; Start 02/03/19 at 15:30 IV Flush (NS 3 ml) 3 ml PER PROTOCOL IV ; Start 02/03/19 at 15:30 Ondansetron HCl (Zofran Inj) 4 mg Q6H PRN IV NAUSEA/VOMITING; Start 02/03/19 at 15:30 Acetaminophen (Tylenol Tab) 650 mg Q6H PRN PO .PAIN 1-3 OR TEMP; Start 02/03/19 at 15:30 Docusate Sodium (Colace) 100 mg Q12H PRN PO .CONSTIPATION; Start 02/03/19 at 15:30 Magnesium Hydroxide (Milk Of Mag) 30 ml DAILY PRN PO .CONSTIPATION; Start 02/03/19 at 15:30 Heparin Sodium (Porcine) (Heparin (5000 Units/1ml)) 5,000 unit Q12 SC Last administered on 02/03/19at 21:38; Admin Dose 5,000 UNIT; Start 02/03/19 at 21:00; Status Hold Tamsulosin HCl (Flomax) 0.4 mg BID PO Last administered on 02/07/19 08:53; Admin Dose 0.4 MG; Start 02/04/19 at 09:00 Morphine Sulfate (morphine) 2 mg Q4H PRN IV SEVERE PAIN LEVEL 7-10 Last administered on 02/04/19at 18:35; Admin Dose 2 MG; Start 02/03/19 at 16:30 Arformoterol Tartrate (Brovana (Neb)) 2 ml BID RESP THERAPY INH Last administered on 02/07/19 08:44; Admin Dose 2 ML; Start 02/03/19 at 22:00 Budesonide (Pulmicort (Neb)) 0.5 mg Q12H RESP THERAPY INH Last administered on 02/07/19 08:44; Admin Dose 0.5 MG; Start 02/03/19 at 22:00 Hydralazine HCl (Apresoline) 5 mg Q6H PRN IV ELEVATED BLOOD PRESSURE; Start 02/04/19 at 20:30 Nitroglycerin (Nitroglycerin (Sl Tab) 0.4 Mg) 1 tab Q5M PRN SL ANGINA Last administered on 02/05/19at 10:29; Admin Dose 1 TAB; Start 02/05/19 at 10:30 Isosorbide Dinitrate (Isordil) 10 mg TID PO Last administered on 02/07/19at 13:03; Admin Dose 10 MG; Start 02/05/19 at 21:00 Cefepime HCl 50 ml @ 100 mls/hr Q24H IV Last administered on 02/06/19at 21:52; Admin Dose 100 MLS/HR; Start 02/06/19 at 20:00 Pantoprazole (Protonix Tab) 40 mg DAILY@06 PO Last administered on 02/07/19at 10:00; Admin Dose 40 MG; Start 02/07/19 at 09:30 IJEOMA HUMPHREYS NP Feb 07, 2019 17:03
[2019-02-07] MEDS: CEFEPIME 1GM/50 ML (PMX) 50 ML IV SCH (20:49)
[2019-02-08] VITALS (9 sets, daily range): BP systolic 98–147; BP diastolic 59–74; PULSE 77–110; RESP 20
[2019-02-08] MEDS: PANTOPRAZOLE (EC) 40 MG TAB PO SCH ×2 (06:22→18:11)
[2019-02-08] MEDS ORDERED: MAGNESIUM SULFATE 2 GM/50 ML 50 ML IVPB ONE (08:30)
[2019-02-08] MEDS: ARFORMOTEROL TARTRATE 15MCG/2 ML AMP INH SCH ×2 (08:37→19:45)
[2019-02-08] MEDS: BUDESONIDE (NEB) 0.5MG/2ML AMP INH SCH ×2 (08:37→19:45)
[2019-02-08] MEDS: TAMSULOSIN (SR) 0.4 MG CAP PO SCH ×2 (09:08→21:11)
[2019-02-08] MEDS: AMLODIPINE 10 MG TAB PO SCH (09:08)
[2019-02-08] MEDS: RANOLAZINE (SR) 500 MG TAB PO SCH ×2 (09:08→21:11)
[2019-02-08] MEDS: ISOSORBIDE DINITRATE 10 MG TAB PO SCH ×3 (09:08→21:11)
[2019-02-08] MEDS: CYCLOSPORINE 0.05% OPH DROPERETTE BOTH EYES SCH ×2 (09:09→21:12)
[2019-02-08] MEDS: METOPROLOL (XL) 50 MG TAB PO SCH (09:09)
[2019-02-08] MEDS: DICLOFENAC SODIUM 1% GEL 100 GM TUBE TP SCH ×4 (09:37→21:43)
[2019-02-08] MEDS: TIOTROPIUM 18 MCG CAPSULE INHA DEV INH SCH (09:37)
--- NOTE | 2019-02-08 13:18 | PN ---
Date/Time of Note Date/Time of Note DATE: 02/08/19 TIME: 13:08 Assessment/Plan VTE Prophylaxis Risk score (from Ns)>0 risk: 5 SCD applied (from Ns): Yes Pharmacological prophylaxis: NA/contraindicated Pharm contraindication: bleeding Lines/Catheters IV Catheter Type (from Nrsg): Peripheral IV Urinary Cath still in place: Yes Reason Cath still needed: urinary retention Assessment/Plan Assessment/Plan 1. Acute chest pain- resolved - most likely GI related - Cardiology on board and appreciate input - trop slightly elevated and most likely secondary to type 2 demand - recent ECHO from 10/2018 reveals EF 40-45% 2. Right lower lobe pneumonia, HCAP - nebs PRN and will continue for another day - on home O2 3. MARTHA on CKD- improving - renal function continues to improve daily - most likely post obstructive etiology given improvement after Emerson placed. - Nephrology consultation appreciated. - avoid nephrotoxic agents 4. Peptic ulcer disease - Seen on EGD 02/06 - GI consultation appreciated and will continue on PPI - started on Carafate 5. BPH - on flomax 6. COPD - continue O2 and neb tx - no exacerbation sx noted 7. HTN - BP stable - continue home medications and adjust as needed 8. PAD - stable - seen by Dr. Waite in the past 9. Anemia, blood loss - hgb continues to fluctuate. Will need to continue monitoring and transfuse if hgb<7.5 - PPI BID 10. Systolic heart failure - elevated BNP noted but does not appear overloaded - CXR negative for pulmonary congestion and no peripheral edema appreciated 11. Disposition - Will advance diet as tolerated and monitor for any further GI bleeding given clipping - continue monitoring hgb and transfuse if <7.5 Result Diagram: 02/08/19 0538 02/08/19 0538 Results 24hrs Laboratory Tests Test 02/07/19 17:03 02/08/19 00:17 02/08/19 05:38 Hemoglobin 7.0 L 6.7 *L 7.8 L Hematocrit 20.6 L 20.0 L 23.0 L White Blood Count 10.4 Red Blood Count 2.65 L Mean Corpuscular Volume 86.8 Mean Corpuscular Hemoglobin 29.4 Mean Corpuscular Hemoglobin Concent 33.9 Red Cell Distribution Width 13.6 Platelet Count 179 Mean Platelet Volume 10.0 Immature Granulocytes % 1.300 H Neutrophils % 75.8 Lymphocytes % 12.9 L Monocytes % 6.1 Eosinophils % 3.5 Basophils % 0.4 Nucleated Red Blood Cells % 0.2 H Immature Granulocytes # 0.130 H Neutrophils # 7.9 H Lymphocytes # 1.3 Monocytes # 0.6 Eosinophils # 0.4 Basophils # 0.0 Nucleated Red Blood Cells # 0.0 Sodium Level 137 Potassium Level 3.9 Chloride Level 109 Carbon Dioxide Level 26 Anion Gap 2 L Blood Urea Nitrogen 46 #H Creatinine 1.69 H Est Glomerular Filtrat Rate mL/min Glucose Level 96 Calcium Level 7.7 L Phosphorus Level 2.9 Magnesium Level 1.7 Subjective 24 Hr Interval Summary Free Text/Dictation Patient doing well and tolerating PO intake. hgb low this am but repeat 7.8. No acute overnight issues. Exam/Review of Systems Exam Vitals Vital Signs Date Temp Pulse Resp B/P (MAP) Pulse Ox O2 O2 Flow FiO2 Time Delivery Rate 02/08/19 87 12:01 02/08/19 97.8 20 114/62 91 Nasal 11:13 (79) Cannula 02/08/19 2.0 08:40 02/07/19 27 05:12 Intake and Output 02/07/19 02/07/19 02/08/19 1515:00 23:00 07:00 IntakeIntake Total 700 ml 1027 ml OutputOutput Total 1100 ml 1000 ml BalanceBalance -400 ml 27 ml Exam General: no acute distress. answering questions appropriately Chest: nontender CVS: S1, S2, regular rhythm, tachycardia, no murmurs Lungs: Diminished breath sounds at bases. no wheezing appreciated Abd: soft, nontender, nondistended. no rebound or guarding. bowel sounds present diffusely Ext: moving all extremities. no cyanosis, clubbing, or edema Skin: no rashes or lesions appreciated Results Results 24hrs Laboratory Tests Test 02/07/19 17:03 02/08/19 00:17 02/08/19 05:38 Hemoglobin 7.0 L 6.7 *L 7.8 L Hematocrit 20.6 L 20.0 L 23.0 L White Blood Count 10.4 Red Blood Count 2.65 L Mean Corpuscular Volume 86.8 Mean Corpuscular Hemoglobin 29.4 Mean Corpuscular Hemoglobin Concent 33.9 Red Cell Distribution Width 13.6 Platelet Count 179 Mean Platelet Volume 10.0 Immature Granulocytes % 1.300 H Neutrophils % 75.8 Lymphocytes % 12.9 L Monocytes % 6.1 Eosinophils % 3.5 Basophils % 0.4 Nucleated Red Blood Cells % 0.2 H Immature Granulocytes # 0.130 H Neutrophils # 7.9 H Lymphocytes # 1.3 Monocytes # 0.6 Eosinophils # 0.4 Basophils # 0.0 Nucleated Red Blood Cells # 0.0 Sodium Level 137 Potassium Level 3.9 Chloride Level 109 Carbon Dioxide Level 26 Anion Gap 2 L Blood Urea Nitrogen 46 #H Creatinine 1.69 H Est Glomerular Filtrat Rate mL/min Glucose Level 96 Calcium Level 7.7 L Phosphorus Level 2.9 Magnesium Level 1.7 Medications Medication Current Medications Amlodipine Besylate (Norvasc) 10 mg DAILY PO Last administered on 02/08/19 09:08; Admin Dose 10 MG; Start 02/04/19 at 09:00 Cyclosporine (Restasis) 1 drop Q12 BOTH EYES Last administered on 02/08/19 09:09; Admin Dose 1 DROP; Start 02/03/19 at 21:00 Diclofenac Sodium (Voltaren 1% Gel) 2 gm QID TP Last administered on 02/08/19 09:37; Admin Dose 2 GM; Start 02/03/19 at 17:00 Donepezil HCl (Aricept) 5 mg DAILY PO ; Start 02/04/19 at 09:00 Metoprolol Succinate (Toprol Xl) 50 mg DAILY PO Last administered on 02/08/19 09:09; Admin Dose 50 MG; Start 02/04/19 at 09:00 Ranolazine (Ranexa) 500 mg Q12 PO Last administered on 02/08/19 09:08; Admin Dose 500 MG; Start 02/03/19 at 21:00 Tiotropium [place] (Spiriva) 1 inh DAILY INH Last administered on 02/08/19 09:37; Admin Dose 1 INH; Start 02/04/19 at 09:00 Levalbuterol (Xopenex Neb) 0.63 mg Q4H RESP THERAPY PRN HHN shortness of breath; Start 02/03/19 at 15:30 IV Flush (NS 3 ml) 3 ml PER PROTOCOL IV ; Start 02/03/19 at 15:30 Ondansetron HCl (Zofran Inj) 4 mg Q6H PRN IV NAUSEA/VOMITING; Start 02/03/19 at 15:30 Acetaminophen (Tylenol Tab) 650 mg Q6H PRN PO .PAIN 1-3 OR TEMP; Start 02/03/19 at 15:30 Docusate Sodium (Colace) 100 mg Q12H PRN PO .CONSTIPATION; Start 02/03/19 at 15:30 Magnesium Hydroxide (Milk Of Mag) 30 ml DAILY PRN PO .CONSTIPATION; Start 02/03/19 at 15:30 Heparin Sodium (Porcine) (Heparin (5000 Units/1ml)) 5,000 unit Q12 SC Last administered on 02/03/19at 21:38; Admin Dose 5,000 UNIT; Start 02/03/19 at 21:00; Status Hold Tamsulosin HCl (Flomax) 0.4 mg BID PO Last administered on 02/08/19 09:08; Admin Dose 0.4 MG; Start 02/04/19 at 09:00 Morphine Sulfate (morphine) 2 mg Q4H PRN IV SEVERE PAIN LEVEL 7-10 Last administered on 02/04/19at 18:35; Admin Dose 2 MG; Start 02/03/19 at 16:30 Arformoterol Tartrate (Brovana (Neb)) 2 ml BID RESP THERAPY INH Last administered on 02/08/19 08:37; Admin Dose 2 ML; Start 02/03/19 at 22:00 Budesonide (Pulmicort (Neb)) 0.5 mg Q12H RESP THERAPY INH Last administered on 02/08/19 08:37; Admin Dose 0.5 MG; Start 02/03/19 at 22:00 Hydralazine HCl (Apresoline) 5 mg Q6H PRN IV ELEVATED BLOOD PRESSURE; Start 02/04/19 at 20:30 Nitroglycerin (Nitroglycerin (Sl Tab) 0.4 Mg) 1 tab Q5M PRN SL ANGINA Last administered on 02/05/19at 10:29; Admin Dose 1 TAB; Start 02/05/19 at 10:30 Isosorbide Dinitrate (Isordil) 10 mg TID PO Last administered on 02/08/19 09:08; Admin Dose 10 MG; Start 02/05/19 at 21:00 Cefepime HCl 50 ml @ 100 mls/hr Q24H IV Last administered on 02/07/19at 20:49; Admin Dose 100 MLS/HR; Start 02/06/19 at 20:00 Pantoprazole (Protonix Tab) 40 mg DAILY@06 PO Last administered on 02/08/19at 06:22; Admin Dose 40 MG; Start 02/07/19 at 09:30 JAE DURAN MD Feb 08, 2019 13:18
[2019-02-08] MEDS: SUCRALFATE 1 GM TAB PO SCH ×3 (13:26→21:11)
--- NOTE | 2019-02-08 13:33 | CONS ---
Assessment/Plan Assessment/Plan Hospital Course (Demo Recall) 1. Nonoliguric acute kidney injury with previous baseline creatinine around 2.0 mg/dL. Etiology of MARTHA is secondary to obstructive uropathy. The patient's renal function has improved after Mcrae catheter placement. Continue to monitor, continue supportive care, renally dose all medication. 2. Anemia. Monitor H and H levels. 3. Mineral bone disorder. Monitor calcium and phosphorus levels. 4. Peptic ulcer disease. The patient is status post EGD with a noted ulcer. Continue Protonix. Follow up with GI. 5. Sepsis secondary to pneumonia. The patient is completing antibiotic course. 6. Chest pain, resolved. 7. Benign prostatic hypertrophy with obstructive uropathy. Continue Flomax. Continue Mcrae catheter. 8. History of chronic obstructive pulmonary disease. Continue nebulizers. 9. Hypertension. Continue current blood pressure regimen. 10. Peripheral vascular disease. Continue to monitor. 11. History of heart failure. The patient appears compensated. off ivf Consultation Date/Type/Reason Admit Date/Time Feb 03, 2019 at 14:25 Initial Consult Date 02/05/19 Requesting Provider: JAE DURAN MD Date/Time of Note DATE: 02/08/19 TIME: 13:33 24 HR Interval Summary Free Text/Dictation denies n/v or shortness of breath adequate urine output via mcrae catheter d/w rn gen nad cv rrr pulm ctab abd soft, nd, nt +bs ext: no edema Exam/Review of Systems Exam Vitals Vital Signs Date Temp Pulse Resp B/P (MAP) Pulse Ox O2 O2 Flow FiO2 Time Delivery Rate 02/08/19 87 12:01 02/08/19 97.8 20 114/62 91 Nasal 11:13 (79) Cannula 02/08/19 2.0 08:40 02/07/19 27 05:12 Intake and Output 02/07/19 02/07/19 02/08/19 1515:00 23:00 07:00 IntakeIntake Total 700 ml 1027 ml OutputOutput Total 1100 ml 1000 ml BalanceBalance -400 ml 27 ml Results Result Diagram: 02/08/19 1254 02/08/19 0538 Results 24hrs Laboratory Tests Test 02/07/19 17:03 02/08/19 00:17 02/08/19 05:38 02/08/19 12:54 Hemoglobin 7.0 L 6.7 *L 7.8 L 8.2 L Hematocrit 20.6 L 20.0 L 23.0 L 24.1 L White Blood Count 10.4 Red Blood Count 2.65 L Mean Corpuscular 86.8 Volume Mean Corpuscular 29.4 Hemoglobin Mean Corpuscular 33.9 Hemoglobin Concent Red Cell 13.6 Distribution Width Platelet Count 179 Mean Platelet Volume 10.0 Immature 1.300 H Granulocytes % Neutrophils % 75.8 Lymphocytes % 12.9 L Monocytes % 6.1 Eosinophils % 3.5 Basophils % 0.4 Nucleated Red Blood 0.2 H Cells % Immature 0.130 H Granulocytes # Neutrophils # 7.9 H Lymphocytes # 1.3 Monocytes # 0.6 Eosinophils # 0.4 Basophils # 0.0 Nucleated Red Blood 0.0 Cells # Sodium Level 137 Potassium Level 3.9 Chloride Level 109 Carbon Dioxide Level 26 Anion Gap 2 L Blood Urea Nitrogen 46 #H Creatinine 1.69 H Est Glomerular Filtrat Rate mL/min Glucose Level 96 Calcium Level 7.7 L Phosphorus Level 2.9 Magnesium Level 1.7 Medications Medication Current Medications Amlodipine Besylate (Norvasc) 10 mg DAILY PO Last administered on 02/08/19 09:08; Admin Dose 10 MG; Start 02/04/19 at 09:00 Cyclosporine (Restasis) 1 drop Q12 BOTH EYES Last administered on 02/08/19 09:09; Admin Dose 1 DROP; Start 02/03/19 at 21:00 Diclofenac Sodium (Voltaren 1% Gel) 2 gm QID TP Last administered on 02/08/19 13:07; Admin Dose 2 GM; Start 02/03/19 at 17:00 Donepezil HCl (Aricept) 5 mg DAILY PO ; Start 02/04/19 at 09:00 Metoprolol Succinate (Toprol Xl) 50 mg DAILY PO Last administered on 02/08/19 09:09; Admin Dose 50 MG; Start 02/04/19 at 09:00 Ranolazine (Ranexa) 500 mg Q12 PO Last administered on 02/08/19 09:08; Admin Dose 500 MG; Start 02/03/19 at 21:00 Tiotropium [place] (Spiriva) 1 inh DAILY INH Last administered on 02/08/19 09 :37; Admin Dose 1 INH; Start 02/04/19 at 09:00 Levalbuterol (Xopenex Neb) 0.63 mg Q4H RESP THERAPY PRN HHN shortness of breath; Start 02/03/19 at 15:30 IV Flush (NS 3 ml) 3 ml PER PROTOCOL IV ; Start 02/03/19 at 15:30 Ondansetron HCl (Zofran Inj) 4 mg Q6H PRN IV NAUSEA/VOMITING; Start 02/03/19 at 15:30 Acetaminophen (Tylenol Tab) 650 mg Q6H PRN PO .PAIN 1-3 OR TEMP; Start 02/03/19 at 15:30 Docusate Sodium (Colace) 100 mg Q12H PRN PO .CONSTIPATION; Start 02/03/19 at 15:30 Magnesium Hydroxide (Milk Of Mag) 30 ml DAILY PRN PO .CONSTIPATION; Start 02/03/19 at 15:30 Heparin Sodium (Porcine) (Heparin (5000 Units/1ml)) 5,000 unit Q12 SC Last administered on 02/03/19at 21:38; Admin Dose 5,000 UNIT; Start 02/03/19 at 21:00; Status Hold Tamsulosin HCl (Flomax) 0.4 mg BID PO Last administered on 02/08/19 09:08; Admin Dose 0.4 MG; Start 02/04/19 at 09:00 Morphine Sulfate (morphine) 2 mg Q4H PRN IV SEVERE PAIN LEVEL 7-10 Last administered on 02/04/19 18:35; Admin Dose 2 MG; Start 02/03/19 at 16:30 Arformoterol Tartrate (Brovana (Neb)) 2 ml BID RESP THERAPY INH Last administered on 02/08/19 08:37; Admin Dose 2 ML; Start 02/03/19 at 22:00 Budesonide (Pulmicort (Neb)) 0.5 mg Q12H RESP THERAPY INH Last administered on 02/08/19 08:37; Admin Dose 0.5 MG; Start 02/03/19 at 22:00 Hydralazine HCl (Apresoline) 5 mg Q6H PRN IV ELEVATED BLOOD PRESSURE; Start 02/04/19 at 20:30 Nitroglycerin (Nitroglycerin (Sl Tab) 0.4 Mg) 1 tab Q5M PRN SL ANGINA Last administered on 02/05/19at 10:29; Admin Dose 1 TAB; Start 02/05/19 at 10:30 Isosorbide Dinitrate (Isordil) 10 mg TID PO Last administered on 02/08/19at 13:24; Admin Dose 10 MG; Start 02/05/19 at 21:00 Cefepime HCl 50 ml @ 100 mls/hr Q24H IV Last administered on 02/07/19 20:49; Admin Dose 100 MLS/HR; Start 02/06/19 at 20:00; Stop 02/09/19 at 23:55 Pantoprazole (Protonix Tab) 40 mg DAILY@06 PO Last administered on 02/08/19 06:22; Admin Dose 40 MG; Start 02/07/19 at 09:30 Sucralfate (Carafate) 1 gm QID PO Last administered on 02/08/19 13:26; Admin Dose 1 GM; Start 02/08/19 at 13:30 JAMAAL CAMPBELL MD Feb 08, 2019 13:33
--- NOTE | 2019-02-08 14:05 | PN ---
Date/Time of Note Date/Time of Note DATE: 02/08/19 TIME: 13:54 Assessment/Plan VTE Prophylaxis Risk score (from Nsg)>0 risk: 5 SCD applied (from Ns): Yes Pharmacological prophylaxis: NA/contraindicated Pharm contraindication: bleeding Lines[facility] Urinary Cath still in place: Yes Reason Cath still needed: other (indicate) Assessment/Plan Assessment/Plan Assessment: Acute on chronic anemia with reported dark stool That is post EGD/colonoscopy 02/06/2019 -10 mm duodenal ulcer with visible vessel -Severe erosive esophagitis -Acute gastritis, biopsied to rule out H. pylori -Hiatal hernia -Poor prep for colonoscopy Acute chest pain-being followed by cardiology Right lower lobe pneumonia-on antibiotics MARTHA on CKD Systolic heart failure COPD Hypertension Plan: Bleeding scan Octreotide gtt at 50 mcg/hr Protonix p.o. BID Start Pepcid IV 20 mg twice daily Review pathology when available Monitor H&H Transfuse for hemoglobin less than 7.5 Patient seen in collaboration with Dr. Knott Subjective: Patient is feeling well. He denies abdominal pain, nausea or vomiting. He is tolerating present diet well. No stool for the past 2 days. H&H every 6 hours with last hemoglobin dropped to 6.7 overnight. 1 unit of PRBCs has been transfused. Will order bleeding scan. Due to shortage of PPI's Protonix drip has been discontinued. We will order Pepcid IV twice daily until Protonix becomes available. Continue supportive treatment and close monitoring. PHYSICAL EXAMINATION: GENERAL: Well developed, well nourished, alert & oriented x 3, in no acute distress SKIN: No lesions, no stigmata chronic liver disease, no evidence of bleeding diathesis LYMPHATIC: No palpable lymphadenopathy. HEAD: Normocephalic, atraumatic, no tenderness. EYES: Pupils equal reactive to light and accommodation, full extraocular movements, sclera clear, non-icteric, no discharge. EARS/NOSE AND THROAT: Ears normal, nose normal, oropharynx normal, oral membranes well hydrated without lesions. NECK: Supple, no masses, thyroid normal, JVP within normal limits, carotids normal without bruits. CHEST: Inspection within normal limits. CARDIOVASCULAR: Heart: Regular rate and rhythm, no murmurs, gallops or rubs. Peripheral pulses present within normal limits, no cyanosis, clubbing or edemas. No pulsatile abdominal mass RESPIRATORY: Lungs clear to auscultation and percussion, no wheezing, no rubs GASTROINTESTINAL AND LIVER: Abdomen: Soft, non tenderness, non-distended, no hernias, no masses, no organomegaly, no ascites, no guarding, no rebound tenderness, normoactive bowel sounds. Rectal: Deferred. GENITOURINARY: [Male genitalia within normal limits. Emerson catheter in place EXTREMITIES: No cyanosis, clubbing or edema. Result Diagram: 02/08/19 1254 02/08/19 0538 Results 24hrs Laboratory Tests Test 02/07/19 17:03 02/08/19 00:17 02/08/19 05:38 02/08/19 12:54 Hemoglobin 7.0 L 6.7 *L 7.8 L 8.2 L Hematocrit 20.6 L 20.0 L 23.0 L 24.1 L White Blood Count 10.4 Red Blood Count 2.65 L Mean Corpuscular 86.8 Volume Mean Corpuscular 29.4 Hemoglobin Mean Corpuscular 33.9 Hemoglobin Concent Red Cell 13.6 Distribution Width Platelet Count 179 Mean Platelet Volume 10.0 Immature 1.300 H Granulocytes % Neutrophils % 75.8 Lymphocytes % 12.9 L Monocytes % 6.1 Eosinophils % 3.5 Basophils % 0.4 Nucleated Red Blood 0.2 H Cells % Immature 0.130 H Granulocytes # Neutrophils # 7.9 H Lymphocytes # 1.3 Monocytes # 0.6 Eosinophils # 0.4 Basophils # 0.0 Nucleated Red Blood 0.0 Cells # Sodium Level 137 Potassium Level 3.9 Chloride Level 109 Carbon Dioxide Level 26 Anion Gap 2 L Blood Urea Nitrogen 46 #H Creatinine 1.69 H Est Glomerular Filtrat Rate mL/min Glucose Level 96 Calcium Level 7.7 L Phosphorus Level 2.9 Magnesium Level 1.7 CC: MONICA KNOTT MD ; Exam/Review of Systems Exam Vitals Vital Signs Date Temp Pulse Resp B/P (MAP) Pulse Ox O2 O2 Flow FiO2 Time Delivery Rate 02/08/19 87 12:01 02/08/19 97.8 20 114/62 91 Nasal 11:13 (79) Cannula 02/08/19 2.0 08:40 02/07/19 27 05:12 Intake and Output 02/07/19 02/07/19 02/08/19 1515:00 23:00 07:00 IntakeIntake Total 700 ml 1027 ml OutputOutput Total 1100 ml 1000 ml BalanceBalance -400 ml 27 ml Results Results 24hrs Laboratory Tests Test 02/07/19 17:03 02/08/19 00:17 02/08/19 05:38 02/08/19 12:54 Hemoglobin 7.0 L 6.7 *L 7.8 L 8.2 L Hematocrit 20.6 L 20.0 L 23.0 L 24.1 L White Blood Count 10.4 Red Blood Count 2.65 L Mean Corpuscular 86.8 Volume Mean Corpuscular 29.4 Hemoglobin Mean Corpuscular 33.9 Hemoglobin Concent Red Cell 13.6 Distribution Width Platelet Count 179 Mean Platelet Volume 10.0 Immature 1.300 H Granulocytes % Neutrophils % 75.8 Lymphocytes % 12.9 L Monocytes % 6.1 Eosinophils % 3.5 Basophils % 0.4 Nucleated Red Blood 0.2 H Cells % Immature 0.130 H Granulocytes # Neutrophils # 7.9 H Lymphocytes # 1.3 Monocytes # 0.6 Eosinophils # 0.4 Basophils # 0.0 Nucleated Red Blood 0.0 Cells # Sodium Level 137 Potassium Level 3.9 Chloride Level 109 Carbon Dioxide Level 26 Anion Gap 2 L Blood Urea Nitrogen 46 #H Creatinine 1.69 H Est Glomerular Filtrat Rate mL/min Glucose Level 96 Calcium Level 7.7 L Phosphorus Level 2.9 Magnesium Level 1.7 Medications Medication Current Medications Amlodipine Besylate (Norvasc) 10 mg DAILY PO Last administered on 02/08/19at 09:08; Admin Dose 10 MG; Start 02/04/19 at 09:00 Cyclosporine (Restasis) 1 drop Q12 BOTH EYES Last administered on 02/08/19at 09:09; Admin Dose 1 DROP; Start 02/03/19 at 21:00 Diclofenac Sodium (Voltaren 1% Gel) 2 gm QID TP Last administered on 02/08/19at 13:07; Admin Dose 2 GM; Start 02/03/19 at 17:00 Donepezil HCl (Aricept) 5 mg DAILY PO ; Start 02/04/19 at 09:00 Metoprolol Succinate (Toprol Xl) 50 mg DAILY PO Last administered on 02/08/19at 09:09; Admin Dose 50 MG; Start 02/04/19 at 09:00 Ranolazine (Ranexa) 500 mg Q12 PO Last administered on 02/08/19 09:08; Admin Dose 500 MG; Start 02/03/19 at 21:00 Tiotropium [place] (Spiriva) 1 inh DAILY INH Last administered on 02/08/19 09:37; Admin Dose 1 INH; Start 02/04/19 at 09:00 Levalbuterol (Xopenex Neb) 0.63 mg Q4H RESP THERAPY PRN HHN shortness of breath; Start 02/03/19 at 15:30 IV Flush (NS 3 ml) 3 ml PER PROTOCOL IV ; Start 02/03/19 at 15:30 Ondansetron HCl (Zofran Inj) 4 mg Q6H PRN IV NAUSEA/VOMITING; Start 02/03/19 at 15:30 Acetaminophen (Tylenol Tab) 650 mg Q6H PRN PO .PAIN 1-3 OR TEMP; Start 02/03/19 at 15:30 Docusate Sodium (Colace) 100 mg Q12H PRN PO .CONSTIPATION; Start 02/03/19 at 15:30 Magnesium Hydroxide (Milk Of Mag) 30 ml DAILY PRN PO .CONSTIPATION; Start 02/03/19 at 15:30 Heparin Sodium (Porcine) (Heparin (5000 Units/1ml)) 5,000 unit Q12 SC Last administered on 02/03/19 21:38; Admin Dose 5,000 UNIT; Start 02/03/19 at 21:00; Status Hold Tamsulosin HCl (Flomax) 0.4 mg BID PO Last administered on 02/08/19 09:08; Admin Dose 0.4 MG; Start 02/04/19 at 09:00 Morphine Sulfate (morphine) 2 mg Q4H PRN IV SEVERE PAIN LEVEL 7-10 Last administered on 02/04/19 18:35; Admin Dose 2 MG; Start 02/03/19 at 16:30 Arformoterol Tartrate (Brovana (Neb)) 2 ml BID RESP THERAPY INH Last administered on 02/08/19 08:37; Admin Dose 2 ML; Start 02/03/19 at 22:00 Budesonide (Pulmicort (Neb)) 0.5 mg Q12H RESP THERAPY INH Last administered on 02/08/19 08:37; Admin Dose 0.5 MG; Start 02/03/19 at 22:00 Hydralazine HCl (Apresoline) 5 mg Q6H PRN IV ELEVATED BLOOD PRESSURE; Start 02/04/19 at 20:30 Nitroglycerin (Nitroglycerin (Sl Tab) 0.4 Mg) 1 tab Q5M PRN SL ANGINA Last administered on 02/05/19at 10:29; Admin Dose 1 TAB; Start 02/05/19 at 10:30 Isosorbide Dinitrate (Isordil) 10 mg TID PO Last administered on 02/08/19at 13:24; Admin Dose 10 MG; Start 02/05/19 at 21:00 Cefepime HCl 50 ml @ 100 mls/hr Q24H IV Last administered on 02/07/19at 20:49; Admin Dose 100 MLS/HR; Start 02/06/19 at 20:00; Stop 02/09/19 at 23:55 Pantoprazole (Protonix Tab) 40 mg DAILY@06 PO Last administered on 02/08/19at 06:22; Admin Dose 40 MG; Start 02/07/19 at 09:30 Sucralfate (Carafate) 1 gm QID PO Last administered on 02/08/19at 13:26; Admin Dose 1 GM; Start 02/08/19 at 13:30 IJEOMA HUMPHREYS NP Feb 08, 2019 14:05
[2019-02-08] MEDS ORDERED: OCTREOTIDE 500 MCG in DEXTROSE 5% 49 ML IV SCH (15:00)
--- NOTE | 2019-02-08 15:58 | CONS ---
Assessment/Plan Assessment/Plan Assessment/Plan (Daily) Chest pain ACS Renal failure Cardiomyopathy-EF 40-45% Anemia PAD Duodenal ulcer Dementia BPH Continue Isordil Continue Toprol Continue Norvasc Continue Ranexa Continue Pepcid Continue Nebs as scheduled Continue Flomax Continue Octreotide Continue Aricept Consultation Date/Type/Reason Admit Date/Time Feb 03, 2019 at 14:25 Type of Consult Cardiology Date/Time of Note DATE: 02/08/19 TIME: 15:53 Past Medical History Home Meds Active Scripts Tiotropium [employer]* (Spiriva*) 18 Mcg Cap.w.dev, 1 CAP INHALATION DAILY, #30 CAP 1 Refill Prov:MARC GLORIA 01/27/19 Reported Medications Naproxen* (Naproxen*) 500 Mg Tablet, 500 MG PO BID PRN for PAIN, TAB 01/20/19 Diclofenac Sodium* (Voltaren* Gel) 1% -100 Gm Gel, 2 GM TOP QID, #1 TUB 01/20/19 Budesonide-Formoterol Fumarate* (Symbicort*) 160-4.5 Hfa.aer.ad, 2 PUFF INHALATION BID, #1 EACH 01/20/19 Cyclosporine (RESTASIS) 1 Each Droperette, 1 DROP BOTH EYES Q12, #1 BOX 01/20/19 Ranolazine* (Ranexa*) 500 Mg Tab.sr.12h, 500 MG PO Q12, TAB 01/20/19 Tamsulosin Hcl* (Flomax*) 0.4 Mg Cap.er.24h, 0.4 MG PO DAILY, CAP 01/20/19 Linaclotide (LINZESS) 145 Mcg Capsule, 145 MCG PO DAILY, #30 CAP 01/20/19 Nebivolol Hcl* (Bystolic*) 10 Mg Tablet, 10 MG PO DAILY, #30 TAB 01/20/19 Omeprazole* (Omeprazole*) 20 Mg Capsule.dr, 20 MG PO DAILY, #30 CAP 01/20/19 Donepezil* (Aricept*) 5 Mg Tablet, 5 MG PO DAILY, TAB 01/20/19 Meloxicam* (Meloxicam*) 7.5 Mg Tablet, 7.5 MG PO DAILY, #30 TAB 01/20/19 Aspirin (Low Dose Aspirin) 81 Mg Tablet.dr, 81 MG PO DAILY, #30 TAB 01/20/19 Amlodipine Besylate* (Amlodipine Besylate*) 10 Mg Tablet, 10 MG PO DAILY, #30 TAB 01/20/19 Metoprolol Succinate* (Toprol XL*) 50 Mg Tab.er.24h, 50 MG PO DAILY, #30 TAB 01/20/19 Pentoxifylline* (Pentoxifylline*) 400 Mg Tablet.sa, 400 MG PO WITH MEALS, TAB 01/20/19 Medications Current Medications Amlodipine Besylate (Norvasc) 10 mg DAILY PO Last administered on 02/08/19at 09:08; Admin Dose 10 MG; Start 02/04/19 at 09:00 Cyclosporine (Restasis) 1 drop Q12 BOTH EYES Last administered on 02/08/19at 09:09; Admin Dose 1 DROP; Start 02/03/19 at 21:00 Diclofenac Sodium (Voltaren 1% Gel) 2 gm QID TP Last administered on 02/08/19at 13:07; Admin Dose 2 GM; Start 02/03/19 at 17:00 Donepezil HCl (Aricept) 5 mg DAILY PO ; Start 02/04/19 at 09:00 Metoprolol Succinate (Toprol Xl) 50 mg DAILY PO Last administered on 02/08/19at 09:09; Admin Dose 50 MG; Start 02/04/19 at 09:00 Ranolazine (Ranexa) 500 mg Q12 PO Last administered on 02/08/19at 09:08; Admin Dose 500 MG; Start 02/03/19 at 21:00 Tiotropium [place] (Spiriva) 1 inh DAILY INH Last administered on 02/08/19at 09:37; Admin Dose 1 INH; Start 02/04/19 at 09:00 Levalbuterol (Xopenex Neb) 0.63 mg Q4H RESP THERAPY PRN HHN shortness of breath; Start 02/03/19 at 15:30 IV Flush (NS 3 ml) 3 ml PER PROTOCOL IV ; Start 02/03/19 at 15:30 Ondansetron HCl (Zofran Inj) 4 mg Q6H PRN IV NAUSEA/VOMITING; Start 02/03/19 at 15:30 Acetaminophen (Tylenol Tab) 650 mg Q6H PRN PO .PAIN 1-3 OR TEMP; Start 02/03/19 at 15:30 Docusate Sodium (Colace) 100 mg Q12H PRN PO .CONSTIPATION; Start 02/03/19 at 15:30 Magnesium Hydroxide (Milk Of Mag) 30 ml DAILY PRN PO .CONSTIPATION; Start 02/03/19 at 15:30 Heparin Sodium (Porcine) (Heparin (5000 Units/1ml)) 5,000 unit Q12 SC Last adm inistered on 02/03/19at 21:38; Admin Dose 5,000 UNIT; Start 02/03/19 at 21:00; Status Hold Tamsulosin HCl (Flomax) 0.4 mg BID PO Last administered on 02/08/19 09:08; Admin Dose 0.4 MG; Start 02/04/19 at 09:00 Morphine Sulfate (morphine) 2 mg Q4H PRN IV SEVERE PAIN LEVEL 7-10 Last administered on 02/04/19 18:35; Admin Dose 2 MG; Start 02/03/19 at 16:30 Arformoterol Tartrate (Brovana (Neb)) 2 ml BID RESP THERAPY INH Last administered on 02/08/19 08:37; Admin Dose 2 ML; Start 02/03/19 at 22:00 Budesonide (Pulmicort (Neb)) 0.5 mg Q12H RESP THERAPY INH Last administered on 02/08/19 08:37; Admin Dose 0.5 MG; Start 02/03/19 at 22:00 Hydralazine HCl (Apresoline) 5 mg Q6H PRN IV ELEVATED BLOOD PRESSURE; Start 02/04/19 at 20:30 Nitroglycerin (Nitroglycerin (Sl Tab) 0.4 Mg) 1 tab Q5M PRN SL ANGINA Last administered on 02/05/19 10:29; Admin Dose 1 TAB; Start 02/05/19 at 10:30 Isosorbide Dinitrate (Isordil) 10 mg TID PO Last administered on 02/08/19 13:24; Admin Dose 10 MG; Start 02/05/19 at 21:00 Cefepime HCl 50 ml @ 100 mls/hr Q24H IV Last administered on 02/07/19 20:49; Admin Dose 100 MLS/HR; Start 02/06/19 at 20:00; Stop 02/09/19 at 23:55 Sucralfate (Carafate) 1 gm QID PO Last administered on 02/08/19at 13:26; Admin Dose 1 GM; Start 02/08/19 at 13:30 Famotidine (Pepcid Iv) 20 mg BID IV ; Start 02/08/19 at 21:00 Pantoprazole (Protonix Tab) 40 mg BID@0600,1800 PO ; Start 02/08/19 at 18:00 Octreotide Acetate 1 mg/ Dextrose 100 ml @ 5 mls/hr Q20H IV ; Start 02/08/19 at 16:00 Allergies: Coded Allergies: No Known Drug Allergies (Verified Allergy, Mild, 02/03/19) Past Surgical History Past Surgical Hx: other (TURP, abdominal surgery, LLE procedure) Social History Alcohol Use: none Smoking Status: Former smoker Drug Use: none Exam/Review of Systems Vital Signs Vitals Vital Signs Date Temp Pulse Resp B/P (MAP) Pulse Ox O2 O2 Flow FiO2 Time Delivery Rate 02/08/19 98.0 77 20 98/59 (72) 93 Nasal 15:31 Cannula 02/08/19 2.0 08:40 02/07/19 27 05:12 Intake and Output 02/07/19 02/07/19 02/08/19 1515:00 23:00 07:00 IntakeIntake Total 700 ml 1027 ml OutputOutput Total 1100 ml 1000 ml BalanceBalance -400 ml 27 ml Exam Constitutional: alert, oriented Head: normocephalic, atraumatic Neck: supple, non-tender Respiratory: clear to auscultation Cardiovascular: regular rate and rhythm (no m/r/g) Gastrointestinal: soft, non-tender Extremities: normal pulses Labs Result Diagram: 02/08/19 1254 02/08/19 0538 Results 24hrs Laboratory Tests Test 02/07/19 17:03 02/08/19 00:17 02/08/19 05:38 02/08/19 12:54 Hemoglobin 7.0 L 6.7 *L 7.8 L 8.2 L Hematocrit 20.6 L 20.0 L 23.0 L 24.1 L White Blood Count 10.4 Red Blood Count 2.65 L Mean Corpuscular 86.8 Volume Mean Corpuscular 29.4 Hemoglobin Mean Corpuscular 33.9 Hemoglobin Concent Red Cell 13.6 Distribution Width Platelet Count 179 Mean Platelet Volume 10.0 Immature 1.300 H Granulocytes % Neutrophils % 75.8 Lymphocytes % 12.9 L Monocytes % 6.1 Eosinophils % 3.5 Basophils % 0.4 Nucleated Red Blood 0.2 H Cells % Immature 0.130 H Granulocytes # Neutrophils # 7.9 H Lymphocytes # 1.3 Monocytes # 0.6 Eosinophils # 0.4 Basophils # 0.0 Nucleated Red Blood 0.0 Cells # Sodium Level 137 Potassium Level 3.9 Chloride Level 109 Carbon Dioxide Level 26 Anion Gap 2 L Blood Urea Nitrogen 46 #H Creatinine 1.69 H Est Glomerular Filtrat Rate mL/min Glucose Level 96 Calcium Level 7.7 L Phosphorus Level 2.9 Magnesium Level 1.7 Medications Medications Current Medications Amlodipine Besylate (Norvasc) 10 mg DAILY PO Last administered on 02/08/19 09: 08; Admin Dose 10 MG; Start 02/04/19 at 09:00 Cyclosporine (Restasis) 1 drop Q12 BOTH EYES Last administered on 02/08/19 09:09; Admin Dose 1 DROP; Start 02/03/19 at 21:00 Diclofenac Sodium (Voltaren 1% Gel) 2 gm QID TP Last administered on 02/08/19 13:07; Admin Dose 2 GM; Start 02/03/19 at 17:00 Donepezil HCl (Aricept) 5 mg DAILY PO ; Start 02/04/19 at 09:00 Metoprolol Succinate (Toprol Xl) 50 mg DAILY PO Last administered on 02/08/19 09:09; Admin Dose 50 MG; Start 02/04/19 at 09:00 Ranolazine (Ranexa) 500 mg Q12 PO Last administered on 02/08/19 09:08; Admin Dose 500 MG; Start 02/03/19 at 21:00 Tiotropium [employer] (Spiriva) 1 inh DAILY INH Last administered on 02/08/19at 09:37; Admin Dose 1 INH; Start 02/04/19 at 09:00 Levalbuterol (Xopenex Neb) 0.63 mg Q4H RESP THERAPY PRN HHN shortness of breath; Start 02/03/19 at 15:30 IV Flush (NS 3 ml) 3 ml PER PROTOCOL IV ; Start 02/03/19 at 15:30 Ondansetron HCl (Zofran Inj) 4 mg Q6H PRN IV NAUSEA/VOMITING; Start 02/03/19 at 15:30 Acetaminophen (Tylenol Tab) 650 mg Q6H PRN PO .PAIN 1-3 OR TEMP; Start 02/03/19 at 15:30 Docusate Sodium (Colace) 100 mg Q12H PRN PO .CONSTIPATION; Start 02/03/19 at 15:30 Magnesium Hydroxide (Milk Of Mag) 30 ml DAILY PRN PO .CONSTIPATION; Start 02/03/19 at 15:30 Heparin Sodium (Porcine) (Heparin (5000 Units/1ml)) 5,000 unit Q12 SC Last administered on 02/03/19at 21:38; Admin Dose 5,000 UNIT; Start 02/03/19 at 21:00; Status Hold Tamsulosin HCl (Flomax) 0.4 mg BID PO Last administered on 02/08/19 09:08; Admin Dose 0.4 MG; Start 02/04/19 at 09:00 Morphine Sulfate (morphine) 2 mg Q4H PRN IV SEVERE PAIN LEVEL 7-10 Last administered on 02/04/19 18:35; Admin Dose 2 MG; Start 02/03/19 at 16:30 Arformoterol Tartrate (Brovana (Neb)) 2 ml BID RESP THERAPY INH Last administered on 02/08/19 08:37; Admin Dose 2 ML; Start 02/03/19 at 22:00 Budesonide (Pulmicort (Neb)) 0.5 mg Q12H RESP THERAPY INH Last administered on 02/08/19 08:37; Admin Dose 0.5 MG; Start 02/03/19 at 22:00 Hydralazine HCl (Apresoline) 5 mg Q6H PRN IV ELEVATED BLOOD PRESSURE; Start 02/04/19 at 20:30 Nitroglycerin (Nitroglycerin (Sl Tab) 0.4 Mg) 1 tab Q5M PRN SL ANGINA Last administered on 02/05/19 10:29; Admin Dose 1 TAB; Start 02/05/19 at 10:30 Isosorbide Dinitrate (Isordil) 10 mg TID PO Last administered on 02/08/19 13:24; Admin Dose 10 MG; Start 02/05/19 at 21:00 Cefepime HCl 50 ml @ 100 mls/hr Q24H IV Last administered on 02/07/19 20:49; Admin Dose 100 MLS/HR; Start 02/06/19 at 20:00; Stop 02/09/19 at 23:55 Sucralfate (Carafate) 1 gm QID PO Last administered on 02/08/19at 13:26; Admin Dose 1 GM; Start 02/08/19 at 13:30 Famotidine (Pepcid Iv) 20 mg BID IV ; Start 02/08/19 at 21:00 Pantoprazole (Protonix Tab) 40 mg BID@0600,1800 PO ; Start 02/08/19 at 18:00 Octreotide Acetate 1 mg/ Dextrose 100 ml @ 5 mls/hr Q20H IV ; Start 02/08/19 at 16:00 BOY RODRIGUEZ M.D. Feb 08, 2019 15:58
[2019-02-08] MEDS: OCTREOTIDE 1 MG in DEXTROSE 5% 95 ML IV SCH (16:36)
[2019-02-08] MEDS: FAMOTIDINE 20 MG INJ IV SCH (21:12)
[2019-02-08] MEDS: CEFEPIME 1GM/50 ML (PMX) 50 ML IV SCH (21:12)
[2019-02-09] VITALS (10 sets, daily range): BP systolic 97–135; BP diastolic 60–81; PULSE 80–106; RESP 18–20
[2019-02-09] MEDS: PANTOPRAZOLE (EC) 40 MG TAB PO SCH ×2 (06:15→17:34)
[2019-02-09] MEDS: BUDESONIDE (NEB) 0.5MG/2ML AMP INH SCH ×2 (08:53→19:37)
[2019-02-09] MEDS: ARFORMOTEROL TARTRATE 15MCG/2 ML AMP INH SCH ×2 (08:53→19:37)
[2019-02-09] MEDS: FAMOTIDINE 20 MG INJ IV SCH ×2 (09:18→21:55)
[2019-02-09] MEDS: CYCLOSPORINE 0.05% OPH DROPERETTE BOTH EYES SCH ×2 (09:18→21:54)
[2019-02-09] MEDS: TIOTROPIUM 18 MCG CAPSULE INHA DEV INH SCH (09:19)
[2019-02-09] MEDS: DICLOFENAC SODIUM 1% GEL 100 GM TUBE TP SCH ×4 (09:19→21:00)
[2019-02-09] MEDS: SUCRALFATE 1 GM TAB PO SCH ×4 (09:32→21:54)
[2019-02-09] MEDS: TAMSULOSIN (SR) 0.4 MG CAP PO SCH ×2 (09:33→21:55)
[2019-02-09] MEDS: RANOLAZINE (SR) 500 MG TAB PO SCH ×2 (09:33→21:55)
[2019-02-09] MEDS: ISOSORBIDE DINITRATE 10 MG TAB PO SCH ×3 (09:34→21:55)
[2019-02-09] MEDS: METOPROLOL (XL) 50 MG TAB PO SCH (09:34)
[2019-02-09] MEDS: AMLODIPINE 10 MG TAB PO SCH (09:35)
[2019-02-09] MEDS: DONEPEZIL 5 MG TAB PO SCH (09:39)
--- NOTE | 2019-02-09 11:32 | PN ---
Date/Time of Note Date/Time of Note DATE: 02/09/19 TIME: 11:18 Assessment/Plan VTE Prophylaxis Risk score (from Ns)>0 risk: 7 SCD applied (from Ns): Yes Pharmacological prophylaxis: NA/contraindicated Pharm contraindication: bleeding Lines/Catheters IV Catheter Type (from Nrsg): Peripheral IV Urinary Cath still in place: Yes Reason Cath still needed: urinary retention Assessment/Plan Assessment/Plan 1. Acute blood loss anemia - hgb has continued to fluctuate. Per nursing pt has not had a BM so unsure if still with dark stools - GI on board and appreciate recommendations. Placed on Octreotide and bleeding scan ordered - continue full diet and based on results of bleeding scan will advance if not active bleeding appreciated - hgb continues to be monitoring q6H. If next hgb is stable, will d/c additional hgb checks. Explained to patient importance but he is still upset with how often he is being poked and bruising on arms - PPI BID 2. Right lower lobe pneumonia, HCAP - no respiratory distress. will d/c antibiotics today - on home O2 3. MARTHA on CKD- stable - renal function leveling off and appears at baseline - most likely prerenal in setting of blood loss anemia and post obstructive with improvement after mcrae placed - Nephrology consultation appreciated. - avoid nephrotoxic agents 4. Acute chest pain- resolved - most likely GI related - Cardiology on board and appreciate input - trop slightly elevated and most likely secondary to type 2 demand - recent ECHO from 10/2018 reveals EF 40-45% 5. Peptic ulcer disease - Seen on EGD 02/06 - GI consultation appreciated and will continue on PPI and octreotide. bleeding scan ordered this am - started on Carafate 6. BPH - on flomax 7. COPD - continue O2 and neb tx - no exacerbation sx noted 8. HTN - BP stable - continue home medications and adjust as needed 9. PAD - stable - seen by Dr. Waite in the past 10. Systolic heart failure - elevated BNP noted but does not appear overloaded - CXR negative for pulmonary congestion and no peripheral edema appreciated 11. Disposition - Bleeding scan ordered for today. Will check another hgb and if stable will d/c further 6 blood draws. Result Diagram: 02/09/19 0449 02/09/19 0449 Results 24hrs Laboratory Tests Test 02/08/19 12:54 02/08/19 19:06 02/09/19 00:22 02/09/19 04:49 Hemoglobin 8.2 L 7.7 L 7.6 L 8.3 L Hematocrit 24.1 L 22.9 L 22.5 L 25.0 L Sodium Level 139 Potassium Level 4.0 Chloride Level 107 Carbon Dioxide Level 28 Anion Gap 4 L Blood Urea Nitrogen 34 #H Creatinine 1.79 H Glucose Level 145 # Calcium Level 7.5 L Phosphorus Level 3.0 Magnesium Level 2.2 Albumin 2.3 L Subjective 24 Hr Interval Summary Free Text/Dictation Patient upset this am because he states his arms are very bruised from all the blood draws. Also concerned that he will be discharged early with acute issues still present. Assured patient he will be discharged once hgb stable and tolerating regular diet. No acute overnight events. Plans for bleeding scan Exam/Review of Systems Exam Vitals Vital Signs Date Temp Pulse Resp B/P (MAP) Pulse Ox O2 O2 Flow FiO2 Time Delivery Rate 02/09/19 Nasal 2 10:14 Cannula 02/09/19 94 18 95 08:53 02/09/19 97.5 135/69 07:38 (91) 02/07/19 27 05:12 Intake and Output 02/08/19 02/08/19 02/09/19 1515:00 23:00 07:00 IntakeIntake Total 600 ml 400 ml OutputOutput Total 700 ml 750 ml BalanceBalance -100 ml -350 ml Exam General: no acute distress. answering questions appropriately Chest: nontender CVS: S1, S2, regular rate and rhythm, no murmurs Lungs: Diminished breath sounds at bases. no wheezing appreciated Abd: soft, nontender, nondistended. no rebound or guarding. bowel sounds present diffusely Ext: moving all extremities. no cyanosis, clubbing, or edema Skin: no rashes or lesions appreciated Results Results 24hrs Laboratory Tests Test 02/08/19 12:54 02/08/19 19:06 02/09/19 00:22 02/09/19 04:49 Hemoglobin 8.2 L 7.7 L 7.6 L 8.3 L Hematocrit 24.1 L 22.9 L 22.5 L 25.0 L Sodium Level 139 Potassium Level 4.0 Chloride Level 107 Carbon Dioxide Level 28 Anion Gap 4 L Blood Urea Nitrogen 34 #H Creatinine 1.79 H Glucose Level 145 # Calcium Level 7.5 L Phosphorus Level 3.0 Magnesium Level 2.2 Albumin 2.3 L Medications Medication Current Medications Amlodipine Besylate (Norvasc) 10 mg DAILY PO Last administered on 02/09/19at 09:35; Admin Dose 10 MG; Start 02/04/19 at 09:00 Cyclosporine (Restasis) 1 drop Q12 BOTH EYES Last administered on 02/09/19 09:18; Admin Dose 1 DROP; Start 02/03/19 at 21:00 Diclofenac Sodium (Voltaren 1% Gel) 2 gm QID TP Last administered on 02/09/19 09:19; Admin Dose 2 GM; Start 02/03/19 at 17:00 Donepezil HCl (Aricept) 5 mg DAILY PO Last administered on 02/09/19at 09:39; Admin Dose 5 MG; Start 02/04/19 at 09:00 Metoprolol Succinate (Toprol Xl) 50 mg DAILY PO Last administered on 02/09/19at 09:34; Admin Dose 50 MG; Start 02/04/19 at 09:00 Ranolazine (Ranexa) 500 mg Q12 PO Last administered on 02/09/19at 09:33; Admin Dose 500 MG; Start 02/03/19 at 21:00 Tiotropium [place] (Spiriva) 1 inh DAILY INH Last administered on 02/09/19 09:19; Admin Dose 1 INH; Start 02/04/19 at 09:00 Levalbuterol (Xopenex Neb) 0.63 mg Q4H RESP THERAPY PRN HHN shortness of breath; Start 02/03/19 at 15:30 IV Flush (NS 3 ml) 3 ml PER PROTOCOL IV ; Start 02/03/19 at 15:30 Ondansetron HCl (Zofran Inj) 4 mg Q6H PRN IV NAUSEA/VOMITING; Start 02/03/19 at 15:30 Acetaminophen (Tylenol Tab) 650 mg Q6H PRN PO .PAIN 1-3 OR TEMP; Start 02/03/19 at 15:30 Docusate Sodium (Colace) 100 mg Q12H PRN PO .CONSTIPATION; Start 02/03/19 at 15:30 Magnesium Hydroxide (Milk Of Mag) 30 ml DAILY PRN PO .CONSTIPATION; Start 02/03/19 at 15:30 Heparin Sodium (Porcine) (Heparin (5000 Units/1ml)) 5,000 unit Q12 SC Last administered on 02/03/19 21:38; Admin Dose 5,000 UNIT; Start 02/03/19 at 21:00; Status Hold Tamsulosin HCl (Flomax) 0.4 mg BID PO Last administered on 02/09/19 09:33; Admin Dose 0.4 MG; Start 02/04/19 at 09:00 Morphine Sulfate (morphine) 2 mg Q4H PRN IV SEVERE PAIN LEVEL 7-10 Last administered on 02/04/19 18:35; Admin Dose 2 MG; Start 02/03/19 at 16:30 Arformoterol Tartrate (Brovana (Neb)) 2 ml BID RESP THERAPY INH Last administered on 02/09/19 08:53; Admin Dose 2 ML; Start 02/03/19 at 22:00 Budesonide (Pulmicort (Neb)) 0.5 mg Q12H RESP THERAPY INH Last administered on 02/09/19 08:53; Admin Dose 0.5 MG; Start 02/03/19 at 22:00 Hydralazine HCl (Apresoline) 5 mg Q6H PRN IV ELEVATED BLOOD PRESSURE; Start 02/04/19 at 20:30 Nitroglycerin (Nitroglycerin (Sl Tab) 0.4 Mg) 1 tab Q5M PRN SL ANGINA Last administered on 02/05/19 10:29; Admin Dose 1 TAB; Start 02/05/19 at 10:30 Isosorbide Dinitrate (Isordil) 10 mg TID PO Last administered on 02/09/19 09:34; Admin Dose 10 MG; Start 02/05/19 at 21:00 Cefepime HCl 50 ml @ 100 mls/hr Q24H IV Last administered on 02/08/19 21:12; Admin Dose 100 MLS/HR; Start 02/06/19 at 20:00; Stop 02/09/19 at 23:55 Sucralfate (Carafate) 1 gm QID PO Last administered on 02/09/19 09:32; Admin Dose 1 GM; Start 02/08/19 at 13:30 Famotidine (Pepcid Iv) 20 mg BID IV Last administered on 6/16/19at 09:18; Admin Dose 20 MG; Start 02/08/19 at 21:00 Pantoprazole (Protonix Tab) 40 mg BID@0600,1800 PO Last administered on 02/09/19at 06:15; Admin Dose 40 MG; Start 02/08/19 at 18:00 Octreotide Acetate 1 mg/ Dextrose 100 ml @ 5 mls/hr Q20H IV Last administered on 02/08/19at 16:36; Admin Dose 5 MLS/HR; Start 02/08/19 at 16:00 JAE DURAN MD Feb 09, 2019 11:31
[2019-02-09] MEDS ORDERED: POLYETHYLENE GLYCOL 17 GM PACKET PO SCH (13:00)
--- NOTE | 2019-02-09 13:07 | PN ---
Date/Time of Note Date/Time of Note DATE: 02/09/19 TIME: 12:58 Assessment/Plan VTE Prophylaxis Risk score (from Ns)>0 risk: 7 SCD applied (from Ns): Yes Pharmacological prophylaxis: NA/contraindicated Pharm contraindication: bleeding Lines/Catheters IV Catheter Type ([facility] Peripheral IV Urinary Cath still in place: Yes Reason Cath still needed: other (indicate) (I and O) Assessment/Plan Assessment/Plan Assessment: Acute on chronic anemia with reported dark stool That is post EGD/colonoscopy 02/06/2019 -10 mm duodenal ulcer with visible vessel -Severe erosive esophagitis -Acute gastritis, biopsied to rule out H. pylori -Hiatal hernia -Poor prep for colonoscopy Acute chest pain-being followed by cardiology Right lower lobe pneumonia-on antibiotics MARTHA on CKD Systolic heart failure COPD Hypertension Plan: Bleeding scan -not done today -will reorder tomorrow if necessary Octreotide gtt at 50 mcg/hr Protonix p.o. BID Start Pepcid IV 20 mg twice daily Review pathology when available Monitor H&H Transfuse for hemoglobin less than 7.5 Patient seen in collaboration with Dr. Knott Subjective: Patient is complaining of constipation and mild retrosternal pain. He denies abdominal pain, nausea or vomiting. He is tolerating present diet well. Will order MiraLAX daily. Hemoglobin is trending up. Continue H&H every 6 hours. Bleeding scan has been postponed till tomorrow due to logistics. We will continue monitoring H&H and reorder bleeding scan if necessary. Continue supportive treatment and close monitoring. PHYSICAL EXAMINATION: GENERAL: Well developed, well nourished, alert & oriented x 3, in no acute distress SKIN: No lesions, no stigmata chronic liver disease, no evidence of bleeding diathesis LYMPHATIC: No palpable lymphadenopathy. HEAD: Normocephalic, atraumatic, no tenderness. EYES: Pupils equal reactive to light and accommodation, full extraocular movements, sclera clear, non-icteric, no discharge. EARS/NOSE AND THROAT: Ears normal, nose normal, oropharynx normal, oral membranes well hydrated without lesions. NECK: Supple, no masses, thyroid normal, JVP within normal limits, carotids n ormal without bruits. CHEST: Inspection within normal limits. CARDIOVASCULAR: Heart: Regular rate and rhythm, no murmurs, gallops or rubs. Peripheral pulses present within normal limits, no cyanosis, clubbing or edemas. No pulsatile abdominal mass RESPIRATORY: Lungs clear to auscultation and percussion, no wheezing, no rubs GASTROINTESTINAL AND LIVER: Abdomen: Soft, non tenderness, non-distended, no hernias, no masses, no organomegaly, no ascites, no guarding, no rebound tenderness, normoactive bowel sounds. Rectal: Deferred. GENITOURINARY: Male genitalia within normal limits. Emerson catheter in place EXTREMITIES: No cyanosis, clubbing or edema. Result Diagram: 02/09/19 1140 02/09/19 0449 Results 24hrs Laboratory Tests Test 02/08/19 19:06 02/09/19 00:22 02/09/19 04:49 02/09/19 11:40 Hemoglobin 7.7 L 7.6 L 8.3 L 8.9 L Hematocrit 22.9 L 22.5 L 25.0 L 26.6 L Sodium Level 139 Potassium Level 4.0 Chloride Level 107 Carbon Dioxide Level 28 Anion Gap 4 L Blood Urea Nitrogen 34 #H Creatinine 1.79 H Glucose Level 145 # Calcium Level 7.5 L Phosphorus Level 3.0 Magnesium Level 2.2 Albumin 2.3 L CC: MONICA KNOTT MD ; Exam/Review of Systems Exam Vitals Vital Signs Date Temp Pulse Resp B/P (MAP) Pulse Ox O2 O2 Flow FiO2 Time Delivery Rate 02/09/19 97.4 96 20 97/65 (76) 96 Nasal 11:44 Cannula 02/09/19 2 10:14 02/07/19 27 05:12 Intake and Output 02/08/19 02/08/19 02/09/19 1515:00 23:00 07:00 IntakeIntake Total 600 ml 400 ml OutputOutput Total 700 ml 750 ml BalanceBalance -100 ml -350 ml Results Results 24hrs Laboratory Tests Test 02/08/19 19:06 02/09/19 00:22 02/09/19 04:49 02/09/19 11:40 Hemoglobin 7.7 L 7.6 L 8.3 L 8.9 L Hematocrit 22.9 L 22.5 L 25.0 L 26.6 L Sodium Level 139 Potassium Level 4.0 Chloride Level 107 Carbon Dioxide Level 28 Anion Gap 4 L Blood Urea Nitrogen 34 #H Creatinine 1.79 H Glucose Level 145 # Calcium Level 7.5 L Phosphorus Level 3.0 Magnesium Level 2.2 Albumin 2.3 L Medications Medication Current Medications Amlodipine Besylate (Norvasc) 10 mg DAILY PO Last administered on 02/09/19at 09:35; Admin Dose 10 MG; Start 02/04/19 at 09:00 Cyclosporine (Restasis) 1 drop Q12 BOTH EYES Last administered on 02/09/19 09:18; Admin Dose 1 DROP; Start 02/03/19 at 21:00 Diclofenac Sodium (Voltaren 1% Gel) 2 gm QID TP Last administered on 02/09/19 09:19; Admin Dose 2 GM; Start 02/03/19 at 17:00 Donepezil HCl (Aricept) 5 mg DAILY PO Last administered on 02/09/19 09:39; Admin Dose 5 MG; Start 02/04/19 at 09:00 Metoprolol Succinate (Toprol Xl) 50 mg DAILY PO Last administered on 02/09/19 09:34; Admin Dose 50 MG; Start 02/04/19 at 09:00 Ranolazine (Ranexa) 500 mg Q12 PO Last administered on 02/09/19 09:33; Admin Dose 500 MG; Start 02/03/19 at 21:00 Tiotropium [place] (Spiriva) 1 inh DAILY INH Last administered on 02/09/19 09:19; Admin Dose 1 INH; Start 02/04/19 at 09:00 Levalbuterol (Xopenex Neb) 0.63 mg Q4H RESP THERAPY PRN HHN shortness of breath; Start 02/03/19 at 15:30 IV Flush (NS 3 ml) 3 ml PER PROTOCOL IV ; Start 02/03/19 at 15:30 Ondansetron HCl (Zofran Inj) 4 mg Q6H PRN IV NAUSEA/VOMITING; Start 02/03/19 at 15:30 Acetaminophen (Tylenol Tab) 650 mg Q6H PRN PO .PAIN 1-3 OR TEMP; Start 02/03/19 at 15:30 Docusate Sodium (Colace) 100 mg Q12H PRN PO .CONSTIPATION; Start 02/03/19 at 15:30 Magnesium Hydroxide (Milk Of Mag) 30 ml DAILY PRN PO .CONSTIPATION; Start 02/03/19 at 15:30 Tamsulosin HCl (Flomax) 0.4 mg BID PO Last administered on 02/09/19 09:33; Admin Dose 0.4 MG; Start 02/04/19 at 09:00 Morphine Sulfate (morphine) 2 mg Q4H PRN IV SEVERE PAIN LEVEL 7-10 Last administered on 02/04/19 18:35; Admin Dose 2 MG; Start 02/03/19 at 16:30 Arformoterol Tartrate (Brovana (Neb)) 2 ml BID RESP THERAPY INH Last administered on 02/09/19 08:53; Admin Dose 2 ML; Start 02/03/19 at 22:00 Budesonide (Pulmicort (Neb)) 0.5 mg Q12H RESP THERAPY INH Last administered on 02/09/19 08:53; Admin Dose 0.5 MG; Start 02/03/19 at 22:00 Hydralazine HCl (Apresoline) 5 mg Q6H PRN IV ELEVATED BLOOD PRESSURE; Start 02/04/19 at 20:30 Nitroglycerin (Nitroglycerin (Sl Tab) 0.4 Mg) 1 tab Q5M PRN SL ANGINA Last administered on 02/05/19 10:29; Admin Dose 1 TAB; Start 02/05/19 at 10:30 Isosorbide Dinitrate (Isordil) 10 mg TID PO Last administered on 02/09/19 09:34; Admin Dose 10 MG; Start 02/05/19 at 21:00 Cefepime HCl 50 ml @ 100 mls/hr Q24H IV Last administered on 02/08/19 21:12; Admin Dose 100 MLS/HR; Start 02/06/19 at 20:00; Stop 02/09/19 at 23:55 Sucralfate (Carafate) 1 gm QID PO Last administered on 02/09/19 09:32; Admin Dose 1 GM; Start 02/08/19 at 13:30 Famotidine (Pepcid Iv) 20 mg BID IV Last administered on 02/09/19 09:18; Admin Dose 20 MG; Start 02/08/19 at 21:00 Pantoprazole (Protonix Tab) 40 mg BID@0600,1800 PO Last administered on 02/09/19 06:15; Admin Dose 40 MG; Start 02/08/19 at 18:00 Octreotide Acetate 1 mg/ Dextrose 100 ml @ 5 mls/hr Q20H IV Last administered on 02/08/19at 16:36; Admin Dose 5 MLS/HR; Start 02/08/19 at 16:00 IJEOMA HUMPHREYS NP Feb 09, 2019 13:07
[2019-02-09] MEDS: OCTREOTIDE 1 MG in DEXTROSE 5% 95 ML IV SCH (13:12)
[2019-02-09] MEDS ORDERED: SOD CHLORIDE 0.9% 500 ML IV ONE (13:30)
--- NOTE | 2019-02-09 13:32 | CONS ---
Assessment/Plan Assessment/Plan Hospital Course (Demo Recall) 1. Nonoliguric acute kidney injury with previous baseline creatinine around 2.0 mg/dL. Etiology of MARTHA is secondary to obstructive uropathy. improved with fc placement but mildly elevated due to hypotension. will give gentle hydration. \ Continue to monitor, continue supportive care, renally dose all medication. 2. Anemia. Monitor H and H levels. 3. Mineral bone disorder. Monitor calcium and phosphorus levels. 4. Peptic ulcer disease. The patient is status post EGD with a noted ulcer. Continue Protonix. Follow up with GI. 5. Sepsis secondary to pneumonia. The patient completed antibiotic course. 6. Chest pain, resolved. 7. Benign prostatic hypertrophy with obstructive uropathy. Continue Flomax. Continue Emerson catheter. 8. History of chronic obstructive pulmonary disease. Continue nebulizers. 9. Hypertension. Continue current blood pressure regimen. 10. Peripheral vascular disease. Continue to monitor. 11. History of heart failure. The patient appears compensated. gentle hydration Consultation Date/Type/Reason Admit Date/Time Feb 03, 2019 at 14:25 Initial Consult Date 02/05/19 Requesting Provider: JAE DURAN MD Date/Time of Note DATE: 02/09/19 TIME: 13:31 24 HR Interval Summary Free Text/Dictation denies n/v. shortness of breath or urinary issues d/w rn gen nad cv rrr pulm ctab abd soft, nd nt +bs ext: no edmea Exam/Review of Systems Exam Vitals Vital Signs Date Temp Pulse Resp B/P (MAP) Pulse Ox O2 O2 Flow FiO2 Time Delivery Rate 02/09/19 97.4 96 20 97/65 (76) 96 Nasal 11:44 Cannula 02/09/19 2 10:14 02/07/19 27 05:12 Intake and Output 02/08/19 02/08/19 02/09/19 1515:00 23:00 07:00 IntakeIntake Total 600 ml 400 ml OutputOutput Total 700 ml 750 ml BalanceBalance -100 ml -350 ml Results Result Diagram: 02/09/19 1140 02/09/19 0449 Results 24hrs Laboratory Tests Test 02/08/19 19:06 02/09/19 00:22 02/09/19 04:49 02/09/19 11:40 Hemoglobin 7.7 L 7.6 L 8.3 L 8.9 L Hematocrit 22.9 L 22.5 L 25.0 L 26.6 L Sodium Level 139 Potassium Level 4.0 Chloride Level 107 Carbon Dioxide Level 28 Anion Gap 4 L Blood Urea Nitrogen 34 #H Creatinine 1.79 H Glucose Level 145 # Calcium Level 7.5 L Phosphorus Level 3.0 Magnesium Level 2.2 Albumin 2.3 L Medications Medication Current Medications Amlodipine Besylate (Norvasc) 10 mg DAILY PO Last administered on 02/09/19 09:35; Admin Dose 10 MG; Start 02/04/19 at 09:00 Cyclosporine (Restasis) 1 drop Q12 BOTH EYES Last administered on 02/09/19 09:18; Admin Dose 1 DROP; Start 02/03/19 at 21:00 Diclofenac Sodium (Voltaren 1% Gel) 2 gm QID TP Last administered on 02/09/19 09:19; Admin Dose 2 GM; Start 02/03/19 at 17:00 Donepezil HCl (Aricept) 5 mg DAILY PO Last administered on 02/09/19 09:39; Admin Dose 5 MG; Start 02/04/19 at 09:00 Metoprolol Succinate (Toprol Xl) 50 mg DAILY PO Last administered on 02/09/19 09:34; Admin Dose 50 MG; Start 02/04/19 at 09:00 Ranolazine (Ranexa) 500 mg Q12 PO Last administered on 02/09/19 09:33; Admin Dose 500 MG; Start 02/03/19 at 21:00 Tiotropium [place] (Spiriva) 1 inh DAILY INH Last administered on 02/09/19 09:19; Admin Dose 1 INH; Start 02/04/19 at 09:00 Levalbuterol (Xopenex Neb) 0.63 mg Q4H RESP THERAPY PRN HHN shortness of breath; Start 02/03/19 at 15:30 IV Flush (NS 3 ml) 3 ml PER PROTOCOL IV ; Start 02/03/19 at 15:30 Ondansetron HCl (Zofran Inj) 4 mg Q6H PRN IV NAUSEA/VOMITING; Start 02/03/19 at 15:30 Acetaminophen (Tylenol Tab) 650 mg Q6H PRN PO .PAIN 1-3 OR TEMP; Start 02/03/19 at 15:30 Docusate Sodium (Colace) 100 mg Q12H PRN PO .CONSTIPATION; Start 02/03/19 at 15:30 Magnesium Hydroxide (Milk Of Mag) 30 ml DAILY PRN PO .CONSTIPATION; Start 02/03/19 at 15:30 Tamsulosin HCl (Flomax) 0.4 mg BID PO Last administered on 02/09/19 09:33; Admin Dose 0.4 MG; Start 02/04/19 at 09:00 Morphine Sulfate (morphine) 2 mg Q4H PRN IV SEVERE PAIN LEVEL 7-10 Last administered on 02/04/19 18:35; Admin Dose 2 MG; Start 02/03/19 at 16:30 Arformoterol Tartrate (Brovana (Neb)) 2 ml BID RESP THERAPY INH Last administered on 02/09/19 08:53; Admin Dose 2 ML; Start 02/03/19 at 22:00 Budesonide (Pulmicort (Neb)) 0.5 mg Q12H RESP THERAPY INH Last administered on 02/09/19 08:53; Admin Dose 0.5 MG; Start 02/03/19 at 22:00 Hydralazine HCl (Apresoline) 5 mg Q6H PRN IV ELEVATED BLOOD PRESSURE; Start 02/04/19 at 20:30 Nitroglycerin (Nitroglycerin (Sl Tab) 0.4 Mg) 1 tab Q5M PRN SL ANGINA Last administered on 02/05/19 10:29; Admin Dose 1 TAB; Start 02/05/19 at 10:30 Isosorbide Dinitrate (Isordil) 10 mg TID PO Last administered on 02/09/19 09:34; Admin Dose 10 MG; Start 02/05/19 at 21:00 Cefepime HCl 50 ml @ 100 mls/hr Q24H IV Last administered on 02/08/19 21:12; Admin Dose 100 MLS/HR; Start 02/06/19 at 20:00; Stop 02/09/19 at 23:55 Sucralfate (Carafate) 1 gm QID PO Last administered on 02/09/19 13:12; Admin Dose 1 GM; Start 02/08/19 at 13:30 Famotidine (Pepcid Iv) 20 mg BID IV Last administered on 02/09/19 09:18; Admin Dose 20 MG; Start 02/08/19 at 21:00 Pantoprazole (Protonix Tab) 40 mg BID@0600,1800 PO Last administered on 02/09/19at 06:15; Admin Dose 40 MG; Start 02/08/19 at 18:00 Octreotide Acetate 1 mg/ Dextrose 100 ml @ 5 mls/hr Q20H IV Last administered on 02/09/19at 13:12; Admin Dose 5 MLS/HR; Start 02/08/19 at 16:00 Polyethylene Glycol (Miralax) 17 gm DAILY PO ; Start 02/09/19 at 13:00 JAMAAL CAMPBELL MD Feb 09, 2019 13:32
--- NOTE | 2019-02-09 14:16 | CONS ---
Assessment/Plan Assessment/Plan Assessment/Plan (Daily) Chest pain resolved ACS Renal failure Cardiomyopathy-EF 40-45% Anemia PAD Duodenal ulcer Dementia BPH Continue Isordil Continue Toprol Continue Norvasc Continue Ranexa Continue Pepcid Continue Nebs as scheduled Continue Flomax Continue Octreotide Continue Aricept Consultation Date/Type/Reason Admit Date/Time Feb 03, 2019 at 14:25 Initial Consult Date 02/05/19 Type of Consult Cardiology Requesting Provider: JAE DURAN MD Date/Time of Note DATE: 02/09/19 TIME: 14:15 Exam/Review of Systems Vital Signs Vitals Vital Signs Date Temp Pulse Resp B/P (MAP) Pulse Ox O2 O2 Flow FiO2 Time Delivery Rate 02/09/19 95 12:01 02/09/19 97.4 20 97/65 (76) 96 Nasal 11:44 Cannula 02/09/19 2 10:14 02/07/19 27 05:12 Intake and Output 02/08/19 02/08/19 02/09/19 1515:00 23:00 07:00 IntakeIntake Total 600 ml 400 ml OutputOutput Total 700 ml 750 ml BalanceBalance -100 ml -350 ml Exam Exam Constitutional: alert, oriented Head: normocephalic, atraumatic Neck: supple, non-tender Respiratory: clear to auscultation Cardiovascular: regular rate and rhythm no m/r/g Gastrointestinal: soft, non-tender Extremities: normal pulses Labs Result Diagram: 02/09/19 1140 02/09/19 0449 Results 24hrs Laboratory Tests Test 02/08/19 19:06 02/09/19 00:22 02/09/19 04:49 02/09/19 11:40 Hemoglobin 7.7 L 7.6 L 8.3 L 8.9 L Hematocrit 22.9 L 22.5 L 25.0 L 26.6 L Sodium Level 139 Potassium Level 4.0 Chloride Level 107 Carbon Dioxide Level 28 Anion Gap 4 L Blood Urea Nitrogen 34 #H Creatinine 1.79 H Glucose Level 145 # Calcium Level 7.5 L Phosphorus Level 3.0 Magnesium Level 2.2 Albumin 2.3 L Medications Medications Current Medications Amlodipine Besylate (Norvasc) 10 mg DAILY PO Last administered on 02/09/19at 09:35; Admin Dose 10 MG; Start 02/04/19 at 09:00 Cyclosporine (Restasis) 1 drop Q12 BOTH EYES Last administered on 02/09/19 09:18; Admin Dose 1 DROP; Start 02/03/19 at 21:00 Diclofenac Sodium (Voltaren 1% Gel) 2 gm QID TP Last administered on 02/09/19 09:19; Admin Dose 2 GM; Start 02/03/19 at 17:00 Donepezil HCl (Aricept) 5 mg DAILY PO Last administered on 02/09/19 09:39; Admin Dose 5 MG; Start 02/04/19 at 09:00 Metoprolol Succinate (Toprol Xl) 50 mg DAILY PO Last administered on 02/09/19 09:34; Admin Dose 50 MG; Start 02/04/19 at 09:00 Ranolazine (Ranexa) 500 mg Q12 PO Last administered on 02/09/19 09:33; Admin Dose 500 MG; Start 02/03/19 at 21:00 Tiotropium [place] (Spiriva) 1 inh DAILY INH Last administered on 02/09/19 09:19; Admin Dose 1 INH; Start 02/04/19 at 09:00 Levalbuterol (Xopenex Neb) 0.63 mg Q4H RESP THERAPY PRN HHN shortness of breath; Start 02/03/19 at 15:30 IV Flush (NS 3 ml) 3 ml PER PROTOCOL IV ; Start 02/03/19 at 15:30 Ondansetron HCl (Zofran Inj) 4 mg Q6H PRN IV NAUSEA/VOMITING; Start 02/03/19 at 15:30 Acetaminophen (Tylenol Tab) 650 mg Q6H PRN PO .PAIN 1-3 OR TEMP; Start 02/03/19 at 15:30 Docusate Sodium (Colace) 100 mg Q12H PRN PO .CONSTIPATION; Start 02/03/19 at 15:30 Magnesium Hydroxide (Milk Of Mag) 30 ml DAILY PRN PO .CONSTIPATION; Start 02/03/19 at 15:30 Tamsulosin HCl (Flomax) 0.4 mg BID PO Last administered on 02/09/19 09:33; Admin Dose 0.4 MG; Start 02/04/19 at 09:00 Morphine Sulfate (morphine) 2 mg Q4H PRN IV SEVERE PAIN LEVEL 7-10 Last administered on 02/04/19 18:35; Admin Dose 2 MG; Start 02/03/19 at 16:30 Arformoterol Tartrate (Brovana (Neb)) 2 ml BID RESP THERAPY INH Last administered on 02/09/19 08:53; Admin Dose 2 ML; Start 02/03/19 at 22:00 Budesonide (Pulmicort (Neb)) 0.5 mg Q12H RESP THERAPY INH Last administered on 02/09/19 08:53; Admin Dose 0.5 MG; Start 02/03/19 at 22:00 Hydralazine HCl (Apresoline) 5 mg Q6H PRN IV ELEVATED BLOOD PRESSURE; Start 02/04/19 at 20:30 Nitroglycerin (Nitroglycerin (Sl Tab) 0.4 Mg) 1 tab Q5M PRN SL ANGINA Last administered on 02/05/19 10:29; Admin Dose 1 TAB; Start 02/05/19 at 10:30 Isosorbide Dinitrate (Isordil) 10 mg TID PO Last administered on 02/09/19 09 :34; Admin Dose 10 MG; Start 02/05/19 at 21:00 Cefepime HCl 50 ml @ 100 mls/hr Q24H IV Last administered on 02/08/19 21:12; Admin Dose 100 MLS/HR; Start 02/06/19 at 20:00; Stop 02/09/19 at 23:55 Sucralfate (Carafate) 1 gm QID PO Last administered on 02/09/19 13:12; Admin Dose 1 GM; Start 02/08/19 at 13:30 Famotidine (Pepcid Iv) 20 mg BID IV Last administered on 02/09/19 09:18; Admin Dose 20 MG; Start 02/08/19 at 21:00 Pantoprazole (Protonix Tab) 40 mg BID@0600,1800 PO Last administered on 02/09/19 06:15; Admin Dose 40 MG; Start 02/08/19 at 18:00 Octreotide Acetate 1 mg/ Dextrose 100 ml @ 5 mls/hr Q20H IV Last administered on 02/09/19 13:12; Admin Dose 5 MLS/HR; Start 02/08/19 at 16:00 Polyethylene Glycol (Miralax) 17 gm DAILY PO Last administered on 6/16/19at 13:32; Admin Dose 17 GM; Start 02/09/19 at 13:00 Sodium Chloride 500 ml @ 75 mls/hr Q6H40M ONCE IV ; Start 02/09/19 at 13:30; Stop 02/09/19 at 20:09 BOY RODRIGUEZ M.D. Feb 09, 2019 14:16
[2019-02-09] MEDS: CEFEPIME 1GM/50 ML (PMX) 50 ML IV SCH (21:54)
[2019-02-10] VITALS (11 sets, daily range): BP systolic 107–158; BP diastolic 62–81; PULSE 86–111; RESP 18–20
[2019-02-10] MEDS: PANTOPRAZOLE (EC) 40 MG TAB PO SCH ×2 (06:00→18:31)
[2019-02-10] MEDS: TIOTROPIUM 18 MCG CAPSULE INHA DEV INH SCH (09:00)
--- NOTE | 2019-02-10 09:10 | PN ---
DATE: 02/10/2019 SUBJECTIVE: The patient remains confused. No other acute events noted. OBJECTIVE: VITAL SIGNS: Blood pressure is 158/75, pulse 99, respirations 18, temperature 98.3. HEENT: Head is normocephalic. NECK: Supple. HEART: Regular rate. LUNGS: Show diminished breath sounds at the base. ABDOMEN: Soft, nontender to palpation without rebound or guarding. EXTREMITIES: Negative for clubbing, cyanosis, no edema. DERMATOLOGIC: No rashes. MUSCULOSKELETAL: No joint effusion. NEUROLOGIC: No change in exam. MEDICATIONS: Reviewed. LABORATORY DATA: Reviewed. IMAGING STUDIES: Reviewed. ASSESSMENT AND PLAN: 1. Nonoliguric acute kidney injury with previous baseline creatinine around 2.0 mg/dL. Etiology of acute kidney injury is secondary to obstructive uropathy. The patient's urine function has markedly improved after Emerson catheter placement. At this point, continue current treatment plan, supportive care, renally dose all medications. 2. Anemia. Monitor hemoglobin and hematocrit levels. 3. Mineral bone disorder. Monitor calcium and phosphorus levels. 4. Peptic ulcer disease, status post EGD with noted ulcer. Continue Protonix. 5. Sepsis secondary to pneumonia. The patient is completing antibiotic course. 6. Chest pain, resolved. 7. Benign prostatic hypertrophy with obstructive uropathy. Continue Flomax. Emerson catheter is in p lace. 8. History of chronic obstructive pulmonary disease. 9. Hypertension. Continue current blood pressure regimen. 10. Peripheral vascular disease. 11. History of heart failure. The patient is compensated. Continue to monitor. Dictated By: HECTOR BERMUDEZ DO NR/NTS Conf#: [id number] DID#: [id number] CC: ELISABET MARCANO MD; JAE DURAN MD;*EndCC*
[2019-02-10] MEDS: ARFORMOTEROL TARTRATE 15MCG/2 ML AMP INH SCH ×2 (09:14→19:47)
[2019-02-10] MEDS: BUDESONIDE (NEB) 0.5MG/2ML AMP INH SCH ×2 (09:14→19:49)
--- NOTE | 2019-02-10 09:26 | PN ---
Date/Time of Note Date/Time of Note DATE: 02/10/19 TIME: 09:07 Assessment/Plan VTE Prophylaxis Risk score (from Nsg)>0 risk: 3 SCD applied (from Nsg): Yes Pharmacological prophylaxis: other (scds) Lines/Catheters IV Catheter Type (from Nrsg): Peripheral IV Urinary Cath still in place: Yes Reason Cath still needed: other (indicate) Assessment/Plan Hospital Course Assessment/Plan Assessment: Acute on chronic anemia with reported dark stool EGD 02/06/2019 10 mm post bulbar duodenal ulceration with visible vessel. Endo Clip applied. 10 mm clean base duodenal ulcer. Moderate gastritis rule out H. pylori infection, biopsies obtained. Severe erosive esophagitis. Hiatal hernia Colonoscopy 02/06/19 -Poor prep for colonoscopy- Precludes adequate examination Acute chest pain-being followed by cardiology Right lower lobe pneumonia-on antibiotics MARTHA on CKD Systolic heart failure- appears compensated COPD Hypertension Plan: Continue Octreotide gtt/H2 cynthia/PPI/Carafate- will monitor h/h q6hrs- if H/H continues to decrease with reported dark stools-will reconsider repeat EGD in near future Review pathology when available Monitor H&H,Transfuse for hemoglobin less than 7.5 Patient seen in collaboration with Dr. Knott Subjective: Sitter at bedside, multiple BMs during the night and this am- stools described as dark. Min decrease in HGB. Will continue close observation- PHYSICAL EXAMINATION: GENERAL: Well developed, well nourished, alert & oriented,sitter at bedside SKIN: No lesions. HEAD: Normocephalic, atraumatic, no tenderness. EYES: Pupils equal reactive to light and accommodation, no discharge. EARS/NOSE AND THROAT: Ears normal, nose normal, oropharynx normal, oral membranes well hydrated without lesions. NECK: Supple, no masses, thyroid normal. CHEST: Inspection within normal limits. CARDIOVASCULAR: Heart: Regular rate and rhythm RESPIRATORY: Lungs clear to auscultation. GASTROINTESTINAL AND LIVER: Abdomen: Soft, non tenderness, non-distended, no hernias, no rebound tenderness, normoactive bowel sounds. Rectal: Deferred. GENITOURINARY: Male genitalia within normal limits. Emerson catheter in place EXTREMITIES: No cyanosis, clubbing or edema. Result Diagram: 02/10/19 0544 02/10/19 0544 Results 24hrs Laboratory Tests Test 02/09/19 11:40 02/09/19 18:27 02/10/19 05:44 Hemoglobin 8.9 L 9.4 L 8.9 L Hematocrit 26.6 L 28.7 L 27.6 L White Blood Count 15.2 #H Red Blood Count 2.98 L Mean Corpuscular Volume 92.6 Mean Corpuscular Hemoglobin 29.9 Mean Corpuscular Hemoglobin Concent 32.2 Red Cell Distribution Width 15.0 H Platelet Count 367 # Mean Platelet Volume 10.1 Immature Granulocytes % 1.600 H Neutrophils % 80.0 H Lymphocytes % 13.2 L Monocytes % 4.3 Eosinophils % 0.4 Basophils % 0.5 Nucleated Red Blood Cells % 0.0 Immature Granulocytes # 0.250 H Neutrophils # 12.2 H Lymphocytes # 2.0 Monocytes # 0.7 Eosinophils # 0.1 Basophils # 0.1 Nucleated Red Blood Cells # 0.0 Sodium Level 142 Potassium Level 4.3 Chloride Level 109 Carbon Dioxide Level 25 Anion Gap 8 Blood Urea Nitrogen 38 H Creatinine 1.86 H Glucose Level 153 Calcium Level 7.9 L Phosphorus Level 3.8 Magnesium Level 2.0 Albumin 2.9 L Exam/Review of Systems Exam Vitals Vital Signs Date Temp Pulse Resp B/P (MAP) Pulse Ox O2 O2 Flow FiO2 Time Delivery Rate 02/10/19 98.3 98 18 158/75 93 Nasal 3.0 07:14 (102) Cannula 02/07/19 27 05:12 Intake and Output 02/09/19 02/09/19 02/10/19 1515:00 23:00 07:00 IntakeIntake Total 720 ml 700 ml OutputOutput Total 500 ml 1300 ml BalanceBalance 220 ml -600 ml Results Results 24hrs Laboratory Tests Test 02/09/19 11:40 02/09/19 18:27 02/10/19 05:44 Hemoglobin 8.9 L 9.4 L 8.9 L Hematocrit 26.6 L 28.7 L 27.6 L White Blood Count 15.2 #H Red Blood Count 2.98 L Mean Corpuscular Volume 92.6 Mean Corpuscular Hemoglobin 29.9 Mean Corpuscular Hemoglobin Concent 32.2 Red Cell Distribution Width 15.0 H Platelet Count 367 # Mean Platelet Volume 10.1 Immature Granulocytes % 1.600 H Neutrophils % 80.0 H Lymphocytes % 13.2 L Monocytes % 4.3 Eosinophils % 0.4 Basophils % 0.5 Nucleated Red Blood Cells % 0.0 Immature Granulocytes # 0.250 H Neutrophils # 12.2 H Lymphocytes # 2.0 Monocytes # 0.7 Eosinophils # 0.1 Basophils # 0.1 Nucleated Red Blood Cells # 0.0 Sodium Level 142 Potassium Level 4.3 Chloride Level 109 Carbon Dioxide Level 25 Anion Gap 8 Blood Urea Nitrogen 38 H Creatinine 1.86 H Glucose Level 153 Calcium Level 7.9 L Phosphorus Level 3.8 Magnesium Level 2.0 Albumin 2.9 L Medications Medication Current Medications Amlodipine Besylate (Norvasc) 10 mg DAILY PO Last administered on 02/09/19at 0 9:35; Admin Dose 10 MG; Start 02/04/19 at 09:00 Cyclosporine (Restasis) 1 drop Q12 BOTH EYES Last administered on 02/09/19at 21:54; Admin Dose 1 DROP; Start 02/03/19 at 21:00 Diclofenac Sodium (Voltaren 1% Gel) 2 gm QID TP Last administered on 02/09/19at 09:19; Admin Dose 2 GM; Start 02/03/19 at 17:00 Metoprolol Succinate (Toprol Xl) 50 mg DAILY PO Last administered on 02/09/19at 09:34; Admin Dose 50 MG; Start 02/04/19 at 09:00 Ranolazine (Ranexa) 500 mg Q12 PO Last administered on 02/09/19at 21:55; Admin Dose 500 MG; Start 02/03/19 at 21:00 Tiotropium [place] (Spiriva) 1 inh DAILY INH Last administered on 02/09/19at 09:19; Admin Dose 1 INH; Start 02/04/19 at 09:00 Levalbuterol (Xopenex Neb) 0.63 mg Q4H RESP THERAPY PRN HHN shortness of breath; Start 02/03/19 at 15:30 IV Flush (NS 3 ml) 3 ml PER PROTOCOL IV ; Start 02/03/19 at 15:30 Ondansetron HCl (Zofran Inj) 4 mg Q6H PRN IV NAUSEA/VOMITING; Start 02/03/19 at 15:30 Acetaminophen (Tylenol Tab) 650 mg Q6H PRN PO .PAIN 1-3 OR TEMP; Start 02/03/19 at 15:30 Docusate Sodium (Colace) 100 mg Q12H PRN PO .CONSTIPATION; Start 02/03/19 at 15:30 Magnesium Hydroxide (Milk Of Mag) 30 ml DAILY PRN PO .CONSTIPATION; Start 02/03/19 at 15:30 Tamsulosin HCl (Flomax) 0.4 mg BID PO Last administered on 02/09/19 21:55; Admin Dose 0.4 MG; Start 02/04/19 at 09:00 Morphine Sulfate (morphine) 2 mg Q4H PRN IV SEVERE PAIN LEVEL 7-10 Last adminis tered on 02/04/19 18:35; Admin Dose 2 MG; Start 02/03/19 at 16:30 Arformoterol Tartrate (Brovana (Neb)) 2 ml BID RESP THERAPY INH Last administered on 02/09/19 19:37; Admin Dose 2 ML; Start 02/03/19 at 22:00 Budesonide (Pulmicort (Neb)) 0.5 mg Q12H RESP THERAPY INH Last administered on 02/09/19 19:37; Admin Dose 0.5 MG; Start 02/03/19 at 22:00 Hydralazine HCl (Apresoline) 5 mg Q6H PRN IV ELEVATED BLOOD PRESSURE; Start 02/04/19 at 20:30 Nitroglycerin (Nitroglycerin (Sl Tab) 0.4 Mg) 1 tab Q5M PRN SL ANGINA Last administered on 02/05/19at 10:29; Admin Dose 1 TAB; Start 02/05/19 at 10:30 Isosorbide Dinitrate (Isordil) 10 mg TID PO Last administered on 02/09/19 21:55; Admin Dose 10 MG; Start 02/05/19 at 21:00 Sucralfate (Carafate) 1 gm QID PO Last administered on 02/09/19 21:54; Admin Dose 1 GM; Start 02/08/19 at 13:30 Famotidine (Pepcid Iv) 20 mg BID IV Last administered on 02/09/19 21:55; Admin Dose 20 MG; Start 02/08/19 at 21:00 Pantoprazole (Protonix Tab) 40 mg BID@0600,1800 PO Last administered on 02/09/19 17:34; Admin Dose 40 MG; Start 02/08/19 at 18:00 Octreotide Acetate 1 mg/ Dextrose 100 ml @ 5 mls/hr Q20H IV Last administered on 02/09/19at 13:12; Admin Dose 5 MLS/HR; Start 02/08/19 at 16:00 Polyethylene Glycol (Miralax) 17 gm DAILY PO Last administered on 02/09/19at 13:32; Admin Dose 17 GM; Start 02/09/19 at 13:00 ISIDRO ARREDONDO Feb 10, 2019 09:19
[2019-02-10] MEDS: METOPROLOL (XL) 50 MG TAB PO SCH (10:20)
[2019-02-10] MEDS: SUCRALFATE 1 GM TAB PO SCH ×4 (10:20→20:45)
[2019-02-10] MEDS: RANOLAZINE (SR) 500 MG TAB PO SCH ×2 (10:20→20:42)
[2019-02-10] MEDS: AMLODIPINE 10 MG TAB PO SCH (10:21)
[2019-02-10] MEDS: CYCLOSPORINE 0.05% OPH DROPERETTE BOTH EYES SCH ×2 (10:21→20:42)
[2019-02-10] MEDS: ISOSORBIDE DINITRATE 10 MG TAB PO SCH ×3 (10:21→20:44)
[2019-02-10] MEDS: TAMSULOSIN (SR) 0.4 MG CAP PO SCH ×2 (10:21→20:44)
[2019-02-10] MEDS: DICLOFENAC SODIUM 1% GEL 100 GM TUBE TP SCH ×4 (10:30→21:00)
[2019-02-10] MEDS: OCTREOTIDE 1 MG in DEXTROSE 5% 95 ML IV SCH (10:30)
[2019-02-10] MEDS: FAMOTIDINE 20 MG INJ IV SCH ×2 (10:30→20:42)
[2019-02-10] MEDS: CEFTRIAXONE 1 GM/50 ML (PMX) 50 ML IVPB SCH (10:31)
--- NOTE | 2019-02-10 10:44 | PN ---
Date/Time of Note Date/Time of Note DATE: 02/10/19 TIME: 10:38 Assessment/Plan VTE Prophylaxis Risk score (from Ns)>0 risk: 3 SCD applied (from Ns): Yes Pharmacological prophylaxis: NA/contraindicated Pharm contraindication: bleeding Lines/Catheters IV Catheter Type (from [facility]): Peripheral IV Urinary Cath still in place: Yes Reason Cath still needed: urinary retention Assessment/Plan Assessment/Plan 1. Acute blood loss anemia - still with dark stools. hgb fluctuating but remains stable. No need for bleeding scan at this time - Continue on full liquid and will advance based on GI recommendations - GI on board and appreciate recommendations. continue on PPI and octreotide 2. Acute toxic encephalopathy - completed 5 day course of antibiotics but with increase in WBC and confusion. Will continue on IV antibiotics for tx of UTI 3. MARTHA on CKD- stable - most likely prerenal in setting of blood loss anemia and post obstructive with improvement after mcrae placed - Nephrology consultation appreciated. - avoid nephrotoxic agents 4. Acute chest pain- resolved - most likely GI related - Cardiology on board and appreciate input - trop slightly elevated and most likely secondary to type 2 demand - recent ECHO from 10/2018 reveals EF 40-45% 5. Peptic ulcer disease - Seen on EGD 02/06 - GI consultation appreciated and will continue on PPI and octreotide - started on Carafate 6. BPH - on flomax 7. COPD - continue O2 and neb tx - no exacerbation sx noted 8. HTN - BP stable - continue home medications and adjust as needed 9. PAD - stable - seen by Dr. Waite in the past 10. Systolic heart failure - elevated BNP noted but does not appear overloaded - CXR negative for pulmonary congestion and no peripheral edema appreciated 11. Disposition - Continue monitoring H/H. Continue octreotide given still with dark stools - Monitor for improvement in mentation Result Diagram: 02/10/19 0544 02/10/19 0544 Results 24hrs Laboratory Tests Test 02/09/19 11:40 02/09/19 18:27 02/10/19 05:44 Hemoglobin 8.9 L 9.4 L 8.9 L Hematocrit 26.6 L 28.7 L 27.6 L White Blood Count 15.2 #H Red Blood Count 2.98 L Mean Corpuscular Volume 92.6 Mean Corpuscular Hemoglobin 29.9 Mean Corpuscular Hemoglobin Concent 32.2 Red Cell Distribution Width 15.0 H Platelet Count 367 # Mean Platelet Volume 10.1 Immature Granulocytes % 1.600 H Neutrophils % 80.0 H Lymphocytes % 13.2 L Monocytes % 4.3 Eosinophils % 0.4 Basophils % 0.5 Nucleated Red Blood Cells % 0.0 Immature Granulocytes # 0.250 H Neutrophils # 12.2 H Lymphocytes # 2.0 Monocytes # 0.7 Eosinophils # 0.1 Basophils # 0.1 Nucleated Red Blood Cells # 0.0 Sodium Level 142 Potassium Level 4.3 Chloride Level 109 Carbon Dioxide Level 25 Anion Gap 8 Blood Urea Nitrogen 38 H Creatinine 1.86 H Glucose Level 153 Calcium Level 7.9 L Phosphorus Level 3.8 Magnesium Level 2.0 Albumin 2.9 L Subjective 24 Hr Interval Summary Free Text/Dictation Patient pleasantly confused and trying to get out of bed. States he still has chest and abdominal discomfort but also stating he is feeling better and physician has been doing a good job. Discussion held regarding plan of care and patient appears to understand. Continues to state he is in the hospital near his home and on the 4th or 5th floor. Exam/Review of Systems Exam Vitals Vital Signs Date Temp Pulse Resp B/P (MAP) Pulse Ox O2 O2 Flow FiO2 Time Delivery Rate 02/10/19 94 18 93 Nasal 3.0 09:15 Cannula 02/10/19 98.3 158/75 07:14 (102) 02/07/19 27 05:12 Intake and Output 02/09/19 02/09/19 02/10/19 1515:00 23:00 07:00 IntakeIntake Total 720 ml 700 ml OutputOutput Total 500 ml 1300 ml BalanceBalance 220 ml -600 ml Exam General: pleasantly confused. no acute distress Chest: nontender CVS: S1, S2, regular rate and rhythm, no murmurs Lungs: Diminished breath sounds at bases. no wheezing appreciated Abd: soft, nontender, nondistended. no rebound or guarding. bowel sounds present diffusely Ext: moving all extremities. no cyanosis, clubbing, or edema Skin: no rashes or lesions appreciated Results Results 24hrs Laboratory Tests Test 02/09/19 11:40 02/09/19 18:27 02/10/19 05:44 Hemoglobin 8.9 L 9.4 L 8.9 L Hematocrit 26.6 L 28.7 L 27.6 L White Blood Count 15.2 #H Red Blood Count 2.98 L Mean Corpuscular Volume 92.6 Mean Corpuscular Hemoglobin 29.9 Mean Corpuscular Hemoglobin Concent 32.2 Red Cell Distribution Width 15.0 H Platelet Count 367 # Mean Platelet Volume 10.1 Immature Granulocytes % 1.600 H Neutrophils % 80.0 H Lymphocytes % 13.2 L Monocytes % 4.3 Eosinophils % 0.4 Basophils % 0.5 Nucleated Red Blood Cells % 0.0 Immature Granulocytes # 0.250 H Neutrophils # 12.2 H Lymphocytes # 2.0 Monocytes # 0.7 Eosinophils # 0.1 Basophils # 0.1 Nucleated Red Blood Cells # 0.0 Sodium Level 142 Potassium Level 4.3 Chloride Level 109 Carbon Dioxide Level 25 Anion Gap 8 Blood Urea Nitrogen 38 H Creatinine 1.86 H Glucose Level 153 Calcium Level 7.9 L Phosphorus Level 3.8 Magnesium Level 2.0 Albumin 2.9 L Medications Medication Current Medications Amlodipine Besylate (Norvasc) 10 mg DAILY PO Last administered on 02/10/19 10:21; Admin Dose 10 MG; Start 02/04/19 at 09:00 Cyclosporine (Restasis) 1 drop Q12 BOTH EYES Last administered on 02/10/19 10:21; Admin Dose 1 DROP; Start 02/03/19 at 21:00 Diclofenac Sodium (Voltaren 1% Gel) 2 gm QID TP Last administered on 02/10/19 10:30; Admin Dose 2 GM; Start 02/03/19 at 17:00 Metoprolol Succinate (Toprol Xl) 50 mg DAILY PO Last administered on 02/10/19 10:20; Admin Dose 50 MG; Start 02/04/19 at 09:00 Ranolazine (Ranexa) 500 mg Q12 PO Last administered on 02/10/19 10:20; Admin Dose 500 MG; Start 02/03/19 at 21:00 Tiotropium [place] (Spiriva) 1 inh DAILY INH Last administered on 02/09/19 09:19; Admin Dose 1 INH; Start 02/04/19 at 09:00 Levalbuterol (Xopenex Neb) 0.63 mg Q4H RESP THERAPY PRN HHN shortness of breath; Start 02/03/19 at 15:30 IV Flush (NS 3 ml) 3 ml PER PROTOCOL IV ; Start 02/03/19 at 15:30 Ondansetron HCl (Zofran Inj) 4 mg Q6H PRN IV NAUSEA/VOMITING; Start 02/03/19 at 15:30 Acetaminophen (Tylenol Tab) 650 mg Q6H PRN PO .PAIN 1-3 OR TEMP; Start 02/03/19 at 15:30 Docusate Sodium (Colace) 100 mg Q12H PRN PO .CONSTIPATION; Start 02/03/19 at 15:30 Magnesium Hydroxide (Milk Of Mag) 30 ml DAILY PRN PO .CONSTIPATION; Start 02/03/19 at 15:30 Tamsulosin HCl (Flomax) 0.4 mg BID PO Last administered on 02/10/19at 10:21; Admin Dose 0.4 MG; Start 02/04/19 at 09:00 Morphine Sulfate (morphine) 2 mg Q4H PRN IV SEVERE PAIN LEVEL 7-10 Last adm inistered on 02/04/19at 18:35; Admin Dose 2 MG; Start 02/03/19 at 16:30 Arformoterol Tartrate (Brovana (Neb)) 2 ml BID RESP THERAPY INH Last administered on 02/10/19at 09:14; Admin Dose 2 ML; Start 02/03/19 at 22:00 Budesonide (Pulmicort (Neb)) 0.5 mg Q12H RESP THERAPY INH Last administered on 02/10/19at 09:14; Admin Dose 0.5 MG; Start 02/03/19 at 22:00 Hydralazine HCl (Apresoline) 5 mg Q6H PRN IV ELEVATED BLOOD PRESSURE; Start 02/04/19 at 20:30 Nitroglycerin (Nitroglycerin (Sl Tab) 0.4 Mg) 1 tab Q5M PRN SL ANGINA Last administered on 02/05/19at 10:29; Admin Dose 1 TAB; Start 02/05/19 at 10:30 Isosorbide Dinitrate (Isordil) 10 mg TID PO Last administered on 02/10/19at 10:21; Admin Dose 10 MG; Start 02/05/19 at 21:00 Sucralfate (Carafate) 1 gm QID PO Last administered on 02/10/19at 10:20; Admin Dose 1 GM; Start 02/08/19 at 13:30 Famotidine (Pepcid Iv) 20 mg BID IV Last administered on 02/10/19 10:30; Admin Dose 20 MG; Start 02/08/19 at 21:00 Pantoprazole (Protonix Tab) 40 mg BID@0600,1800 PO Last administered on 02/09/19at 17:34; Admin Dose 40 MG; Start 02/08/19 at 18:00 Octreotide Acetate 1 mg/ Dextrose 100 ml @ 5 mls/hr Q20H IV Last administered on 02/10/19 10:30; Admin Dose 5 MLS/HR; Start 02/08/19 at 16:00 Ceftriaxone Sodium 50 ml @ 100 mls/hr Q24H IVPB Last administered on 02/10/19 10:31; Admin Dose 100 MLS/HR; Start 02/10/19 at 10:00 JAE DURAN MD Feb 10, 2019 10:44
--- NOTE | 2019-02-10 18:47 | CONS ---
Assessment/Plan Assessment/Plan Hospital Course (Demo Recall) IMP: 1.Chest pain-minimal positive troponin in the setting of renal failure and severe anemia. Likely type 2 demand infarct. NO CP on medical therapy at this time 2.Cardiomyopathy-EF 40-45% by echo 11/04/18 3.anemia-worsening 4.renal failure-acute on chrinic 5.PAD 6. Duodenal ulcer by endoscopy this admit on PPI/sucralfate Recc: -Tele -trend cardiac enzymes -Contniue BB/norvasc -transfuse PRBC's as necesssary -Continue PPI/H2 cynthia/sucralfate/octreotide -Judson hold asa at this time given findings of deodenal ulcer -Continue ranexa/iosrdil Consultation Date/Type/Reason Admit Date/Time Feb 03, 2019 at 14:25 Initial Consult Date 02/05/19 Type of Consult Cardiology Reason for Consultation Nstemi Requesting Provider: JAE DURAN MD Date/Time of Note DATE: 02/10/19 TIME: 18:44 Exam/Review of Systems Vital Signs Vitals Vital Signs Date Temp Pulse Resp B/P (MAP) Pulse Ox O2 O2 Flow FiO2 Time Delivery Rate 02/10/19 89 16:01 02/10/19 97.5 18 131/81 90 15:20 (98) 02/10/19 Nasal 3.0 09:15 Cannula 02/07/19 27 05:12 Intake and Output 02/09/19 02/09/19 02/10/19 1515:00 23:00 07:00 IntakeIntake Total 720 ml 700 ml OutputOutput Total 500 ml 1300 ml BalanceBalance 220 ml -600 ml Exam Exam Review of Systems: CONSTITUTIONAL: No fevers, chills. PULMONARY: No sob CARDIOVASCULAR: No chest pain/palpitations GASTROINTESTINAL: No nausea/vomiting. GENITOURINARY: No hematuria/dysuria. MUSCULOSKELETAL: No myagias/arthalgias. PSYCHIATRIC: The patient denies depression. NEUROLOGIC: No weakness Constitutional: alert Psych: no complaints Head: normocephalic ENMT: mucosa pink and moist Neck: supple, jvd (9 cm water) Respiratory: clear to auscultation Cardiovascular: regular rate and rhythm Gastrointestinal: soft, non-tender Musculoskeletal: muscle tone (normal) Extremities: edema (none) Neurological: other (No focal deficits) Labs Result Diagram: 02/10/19 1139 02/10/19 0544 Results 24hrs Laboratory Tests Test 02/10/19 05:44 02/10/19 11:39 White Blood Count 15.2 #H Red Blood Count 2.98 L Hemoglobin 8.9 L 7.2 L Hematocrit 27.6 L 22.5 L Mean Corpuscular Volume 92.6 Mean Corpuscular Hemoglobin 29.9 Mean Corpuscular Hemoglobin Concent 32.2 Red Cell Distribution Width 15.0 H Platelet Count 367 # Mean Platelet Volume 10.1 Immature Granulocytes % 1.600 H Neutrophils % 80.0 H Lymphocytes % 13.2 L Monocytes % 4.3 Eosinophils % 0.4 Basophils % 0.5 Nucleated Red Blood Cells % 0.0 Immature Granulocytes # 0.250 H Neutrophils # 12.2 H Lymphocytes # 2.0 Monocytes # 0.7 Eosinophils # 0.1 Basophils # 0.1 Nucleated Red Blood Cells # 0.0 Sodium Level 142 Potassium Level 4.3 Chloride Level 109 Carbon Dioxide Level 25 Anion Gap 8 Blood Urea Nitrogen 38 H Creatinine 1.86 H Glucose Level 153 Calcium Level 7.9 L Phosphorus Level 3.8 Magnesium Level 2.0 Albumin 2.9 L Medications Medications Current Medications Amlodipine Besylate (Norvasc) 10 mg DAILY PO Last administered on 02/10/19at 10:21; Admin Dose 10 MG; Start 02/04/19 at 09:00 Cyclosporine (Restasis) 1 drop Q12 BOTH EYES Last administered on 02/10/19at 10:21; Admin Dose 1 DROP; Start 02/03/19 at 21:00 Diclofenac Sodium (Voltaren 1% Gel) 2 gm QID TP Last administered on 02/10/19at 18:32; Admin Dose 2 GM; Start 02/03/19 at 17:00 Metoprolol Succinate (Toprol Xl) 50 mg DAILY PO Last administered on 02/10/19at 10:20; Admin Dose 50 MG; Start 02/04/19 at 09:00 Ranolazine (Ranexa) 500 mg Q12 PO Last administered on 02/10/19at 10:20; Admin Dose 500 MG; Start 02/03/19 at 21:00 Tiotropium [place] (Spiriva) 1 inh DAILY INH Last administered on 02/09/19at 09:19; Admin Dose 1 INH; Start 02/04/19 at 09:00 Levalbuterol (Xopenex Neb) 0.63 mg Q4H RESP THERAPY PRN HHN shortness of breath; Start 02/03/19 at 15:30 IV Flush (NS 3 ml) 3 ml PER PROTOCOL IV ; Start 02/03/19 at 15:30 Ondansetron HCl (Zofran Inj) 4 mg Q6H PRN IV NAUSEA/VOMITING; Start 02/03/19 at 15:30 Acetaminophen (Tylenol Tab) 650 mg Q6H PRN PO .PAIN 1-3 OR TEMP; Start 02/03/19 at 15:30 Docusate Sodium (Colace) 100 mg Q12H PRN PO .CONSTIPATION; Start 02/03/19 at 15:30 Magnesium Hydroxide (Milk Of Mag) 30 ml DAILY PRN PO .CONSTIPATION; Start 02/03/19 at 15:30 Tamsulosin HCl (Flomax) 0.4 mg BID PO Last administered on 02/10/19at 10:21; Ad min Dose 0.4 MG; Start 02/04/19 at 09:00 Morphine Sulfate (morphine) 2 mg Q4H PRN IV SEVERE PAIN LEVEL 7-10 Last administered on 02/04/19at 18:35; Admin Dose 2 MG; Start 02/03/19 at 16:30 Arformoterol Tartrate (Brovana (Neb)) 2 ml BID RESP THERAPY INH Last administered on 02/10/19at 09:14; Admin Dose 2 ML; Start 02/03/19 at 22:00 Budesonide (Pulmicort (Neb)) 0.5 mg Q12H RESP THERAPY INH Last administered on 02/10/19at 09:14; Admin Dose 0.5 MG; Start 02/03/19 at 22:00 Hydralazine HCl (Apresoline) 5 mg Q6H PRN IV ELEVATED BLOOD PRESSURE; Start 02/04/19 at 20:30 Nitroglycerin (Nitroglycerin (Sl Tab) 0.4 Mg) 1 tab Q5M PRN SL ANGINA Last administered on 02/05/19at 10:29; Admin Dose 1 TAB; Start 02/05/19 at 10:30 Isosorbide Dinitrate (Isordil) 10 mg TID PO Last administered on 02/10/19at 15:1 6; Admin Dose 10 MG; Start 02/05/19 at 21:00 Sucralfate (Carafate) 1 gm QID PO Last administered on 02/10/19 18:31; Admin Dose 1 GM; Start 02/08/19 at 13:30 Famotidine (Pepcid Iv) 20 mg BID IV Last administered on 02/10/19 10:30; Admin Dose 20 MG; Start 02/08/19 at 21:00 Pantoprazole (Protonix Tab) 40 mg BID@0600,1800 PO Last administered on 02/10/19at 18:31; Admin Dose 40 MG; Start 02/08/19 at 18:00 Octreotide Acetate 1 mg/ Dextrose 100 ml @ 5 mls/hr Q20H IV Last administered on 02/10/19 10:30; Admin Dose 5 MLS/HR; Start 02/08/19 at 16:00 Ceftriaxone Sodium 50 ml @ 100 mls/hr Q24H IVPB Last administered on 02/10/19 10:31; Admin Dose 100 MLS/HR; Start 02/10/19 at 10:00 ELISABET MARCANO Feb 10, 2019 18:47
[2019-02-10] MEDS ORDERED: LORAZEPAM 2 MG INJ IV ONE (22:30)
[2019-02-11] VITALS (20 sets, daily range): BP systolic 98–150; BP diastolic 55–80; PULSE 62–94; RESP 16–31
[2019-02-11] MEDS: OCTREOTIDE 1 MG in DEXTROSE 5% 95 ML IV SCH ×2 (04:00→11:07)
[2019-02-11] MEDS: PANTOPRAZOLE (EC) 40 MG TAB PO SCH ×2 (05:44→21:41)
--- NOTE | 2019-02-11 08:00 | CONS ---
Consult Date/Type/Reason Admit Date/Time Feb 03, 2019 at 14:25 Initial Consult Date 02/05/19 Requesting Provider: JAE DURAN MD Date/Time of Note DATE: 02/11/19 TIME: 07:57 Subjective Pt with active GIB - bloody BM now - H/H down to 6.5 - blood transfusion ongoing - BP stable - will monitor clinically and blood Rx as needed ROS: No fever, no chills, no nausea, no vomiting, no diarrhea/constipation - active GIB / melena No chest pain, no PND, no orthopnea Objective Vitals Vital Signs Date Temp Pulse Resp B/P (MAP) Pulse Ox O2 O2 Flow FiO2 Time Delivery Rate 02/11/19 85 04:00 02/11/19 97.7 16 124/69 94 Nasal 4.0 03:27 (87) Cannula Intake and Output 02/10/19 02/10/19 02/11/19 1515:00 23:00 07:00 IntakeIntake Total 600 ml 500 ml OutputOutput Total 700 ml 640 ml BalanceBalance -100 ml -140 ml Exam 1.Chest pain-minimal positive troponin in the setting of renal failure and severe anemia. Likely type 2 demand infarct. NO CP on medical therapy at this time - no intervention now pending GIB stabilization. 2.Cardiomyopathy-EF 40-45% by echo 11/04/18 - no indication for ICD. 3.anemia-worsening - active bleeding - blood tx ongoing 4.renal failure-acute on chrinic - avoid nephrotoxic meds 5.PAD - on RX 6. Duodenal ulcer by endoscopy this admit on PPI/sucralfate - might need repeat EGD Results/Medications Result Diagram: 02/11/19 0037 02/10/19 0544 Results 24 hrs Laboratory Tests Test 02/10/19 11:39 02/10/19 18:31 02/11/19 00:37 Hemoglobin 7.2 L 8.0 L 6.5 *L Hematocrit 22.5 L 24.3 L 19.9 L Home Meds Active Scripts Tiotropium [place]* (Spiriva*) 18 Mcg Cap.w.dev, 1 CAP INHALATION DAILY, #30 CAP 1 Refill Prov:MARC GLORIA 01/27/19 Reported Medications Naproxen* (Naproxen*) 500 Mg Tablet, 500 MG PO BID PRN for PAIN, TAB 01/20/19 Diclofenac Sodium* (Voltaren* Gel) 1% -100 Gm Gel, 2 GM TOP QID, #1 TUB 01/20/19 Budesonide-Formoterol Fumarate* (Symbicort*) 160-4.5 Hfa.aer.ad, 2 PUFF INHALATION BID, #1 EACH 01/20/19 Cyclosporine (RESTASIS) 1 Each Droperette, 1 DROP BOTH EYES Q12, #1 BOX 01/20/19 Ranolazine* (Ranexa*) 500 Mg Tab.sr.12h, 500 MG PO Q12, TAB 01/20/19 Tamsulosin Hcl* (Flomax*) 0.4 Mg Cap.er.24h, 0.4 MG PO DAILY, CAP 01/20/19 Linaclotide (LINZESS) 145 Mcg Capsule, 145 MCG PO DAILY, #30 CAP 01/20/19 Nebivolol Hcl* (Bystolic*) 10 Mg Tablet, 10 MG PO DAILY, #30 TAB 01/20/19 Omeprazole* (Omeprazole*) 20 Mg Capsule.dr, 20 MG PO DAILY, #30 CAP 01/20/19 Donepezil* (Aricept*) 5 Mg Tablet, 5 MG PO DAILY, TAB 01/20/19 Meloxicam* (Meloxicam*) 7.5 Mg Tablet, 7.5 MG PO DAILY, #30 TAB 01/20/19 Aspirin (Low Dose Aspirin) 81 Mg Tablet.dr, 81 MG PO DAILY, #30 TAB 01/20/19 Amlodipine Besylate* (Amlodipine Besylate*) 10 Mg Tablet, 10 MG PO DAILY, #30 TAB 01/20/19 Metoprolol Succinate* (Toprol XL*) 50 Mg Tab.er.24h, 50 MG PO DAILY, #30 TAB 01/20/19 Pentoxifylline* (Pentoxifylline*) 400 Mg Tablet.sa, 400 MG PO WITH MEALS, TAB 01/20/19 Medications Current Medications Amlodipine Besylate (Norvasc) 10 mg DAILY PO Last administered on 02/10/19at 10:21; Admin Dose 10 MG; Start 02/04/19 at 09:00 Cyclosporine (Restasis) 1 drop Q12 BOTH EYES Last administered on 02/10/19at 20: 42; Admin Dose 1 DROP; Start 02/03/19 at 21:00 Diclofenac Sodium (Voltaren 1% Gel) 2 gm QID TP Last administered on 02/10/19at 18:32; Admin Dose 2 GM; Start 02/03/19 at 17:00 Metoprolol Succinate (Toprol Xl) 50 mg DAILY PO Last administered on 02/10/19at 10:20; Admin Dose 50 MG; Start 02/04/19 at 09:00 Ranolazine (Ranexa) 500 mg Q12 PO Last administered on 02/10/19at 20:42; Admin Dose 500 MG; Start 02/03/19 at 21:00 Tiotropium [place] (Spiriva) 1 inh DAILY INH Last administered on 02/09/19at 09: 19; Admin Dose 1 INH; Start 02/04/19 at 09:00 Levalbuterol (Xopenex Neb) 0.63 mg Q4H RESP THERAPY PRN HHN shortness of breath; Start 02/03/19 at 15:30 IV Flush (NS 3 ml) 3 ml PER PROTOCOL IV ; Start 02/03/19 at 15:30 Ondansetron HCl (Zofran Inj) 4 mg Q6H PRN IV NAUSEA/VOMITING; Start 02/03/19 at 15:30 Acetaminophen (Tylenol Tab) 650 mg Q6H PRN PO .PAIN 1-3 OR TEMP; Start 02/03/19 at 15:30 Docusate Sodium (Colace) 100 mg Q12H PRN PO .CONSTIPATION; Start 02/03/19 at 15:30 Magnesium Hydroxide (Milk Of Mag) 30 ml DAILY PRN PO .CONSTIPATION; Start 02/03/19 at 15:30 Tamsulosin HCl (Flomax) 0.4 mg BID PO Last administered on 02/10/19at 20:44; Admin Dose 0.4 MG; Start 02/04/19 at 09:00 Morphine Sulfate (morphine) 2 mg Q4H PRN IV SEVERE PAIN LEVEL 7-10 Last administered on 02/04/19at 18:35; Admin Dose 2 MG; Start 02/03/19 at 16:30 Arformoterol Tartrate (Brovana (Neb)) 2 ml BID RESP THERAPY INH Last administered on 02/10/19at 19:47; Admin Dose 2 ML; Start 02/03/19 at 22:00 Budesonide (Pulmicort (Neb)) 0.5 mg Q12H RESP THERAPY INH Last administered on 02/10/19 19:49; Admin Dose 0.5 MG; Start 02/03/19 at 22:00 Hydralazine HCl (Apresoline) 5 mg Q6H PRN IV ELEVATED BLOOD PRESSURE; Start 02/04/19 at 20:30 Nitroglycerin (Nitroglycerin (Sl Tab) 0.4 Mg) 1 tab Q5M PRN SL ANGINA Last admi nistered on 02/05/19 10:29; Admin Dose 1 TAB; Start 02/05/19 at 10:30 Isosorbide Dinitrate (Isordil) 10 mg TID PO Last administered on 02/10/19 20:44; Admin Dose 10 MG; Start 02/05/19 at 21:00 Sucralfate (Carafate) 1 gm QID PO Last administered on 02/10/19 20:45; Admin Dose 1 GM; Start 02/08/19 at 13:30 Famotidine (Pepcid Iv) 20 mg BID IV Last administered on 02/10/19 20:42; Admin Dose 20 MG; Start 02/08/19 at 21:00 Pantoprazole (Protonix Tab) 40 mg BID@0600,1800 PO Last administered on 02/10/19 18:31; Admin Dose 40 MG; Start 02/08/19 at 18:00 Octreotide Acetate 1 mg/ Dextrose 100 ml @ 5 mls/hr Q20H IV Last administered on 02/10/19 10:30; Admin Dose 5 MLS/HR; Start 02/08/19 at 16:00 Ceftriaxone Sodium 50 ml @ 100 mls/hr Q24H IVPB Last administered on 02/10/19 10:31; Admin Dose 100 MLS/HR; Start 02/10/19 at 10:00 RICK PEREZ MD Feb 11, 2019 08:00
[2019-02-11] MEDS: TIOTROPIUM 18 MCG CAPSULE INHA DEV INH SCH (09:00)
[2019-02-11] MEDS: FAMOTIDINE 20 MG INJ IV SCH ×2 (09:12→20:56)
[2019-02-11] MEDS: METOPROLOL (XL) 50 MG TAB PO SCH (09:12)
[2019-02-11] MEDS: RANOLAZINE (SR) 500 MG TAB PO SCH ×2 (09:12→20:56)
[2019-02-11] MEDS: TAMSULOSIN (SR) 0.4 MG CAP PO SCH ×2 (09:12→20:55)
[2019-02-11] MEDS: AMLODIPINE 10 MG TAB PO SCH (09:12)
[2019-02-11] MEDS: DICLOFENAC SODIUM 1% GEL 100 GM TUBE TP SCH ×4 (09:13→21:41)
[2019-02-11] MEDS: SUCRALFATE 1 GM TAB PO SCH ×4 (09:13→20:55)
[2019-02-11] MEDS: ISOSORBIDE DINITRATE 10 MG TAB PO SCH ×3 (09:13→20:56)
[2019-02-11] MEDS: CYCLOSPORINE 0.05% OPH DROPERETTE BOTH EYES SCH ×2 (09:13→20:56)
[2019-02-11] MEDS: BUDESONIDE (NEB) 0.5MG/2ML AMP INH SCH ×2 (09:24→20:40)
[2019-02-11] MEDS: ARFORMOTEROL TARTRATE 15MCG/2 ML AMP INH SCH ×2 (09:24→20:40)
--- NOTE | 2019-02-11 11:58 | PN ---
Date/Time of Note Date/Time of Note DATE: 02/11/19 TIME: 11:52 Assessment/Plan VTE Prophylaxis Risk score (from Ns)>0 risk: 4 SCD applied (from Ns): Yes Pharmacological prophylaxis: NA/contraindicated Pharm contraindication: bleeding Lines/Catheters IV Catheter Type (from Nrsg): Peripheral IV Urinary Cath still in place: Yes Reason Cath still needed: urinary retention Assessment/Plan Assessment/Plan 1. Acute blood loss anemia - Plans for repeat EGD this afternoon given continued dark stools and drop in Hgb. Another unit ordered this am given Hgb 6.7 - keep NPO for now pending procedure - GI on board and appreciate recommendations. continue on PPI and octreotide 2. Acute toxic encephalopathy - on antibiotics for UTI. May be secondary to aricept being d/c but family adamant about medication not being restarted 3. MARTHA on CKD - most likely secondary to hemodynamics - mcrae in place - Nephrology consultation appreciated. - avoid nephrotoxic agents 4. Acute chest pain- resolved - most likely GI related - Cardiology on board and appreciate input - trop slightly elevated and most likely secondary to type 2 demand - recent ECHO from 10/2018 reveals EF 40-45% 5. Peptic ulcer disease, Duodenal ulcers - repeat EGD this afternoon - Seen on EGD 02/06 - GI consultation appreciated and will continue on PPI and octreotide - started on Carafate 6. BPH - on flomax 7. COPD - continue O2 and neb tx - no exacerbation sx noted 8. HTN - BP stable - continue home medications and adjust as needed 9. PAD - stable - seen by Dr. Waite in the past 10. Systolic heart failure - elevated BNP noted but does not appear overloaded - CXR negative for pulmonary congestion and no peripheral edema appreciated 11. Disposition - Plans for repeat EGD this afternoon to assess for further GI bleeding. Transfuse 1 unit PRBC given hgb 6.7 Result Diagram: 02/11/19 1108 02/11/19 1108 Results 24hrs Laboratory Tests Test 02/10/19 18:31 02/11/19 00:37 02/11/19 11:08 Hemoglobin 8.0 L 6.5 *L 6.7 *L Hematocrit 24.3 L 19.9 L 19.9 L White Blood Count 12.9 H Red Blood Count 2.26 #L Mean Corpuscular Volume 88.1 Mean Corpuscular Hemoglobin 29.6 Mean Corpuscular Hemoglobin Concent 33.7 Red Cell Distribution Width 15.2 H Platelet Count 269 # Mean Platelet Volume 10.3 Immature Granulocytes % 1.900 H Neutrophils % 75.0 Lymphocytes % 14.8 L Monocytes % 5.8 Eosinophils % 2.0 Basophils % 0.5 Nucleated Red Blood Cells % 0.2 H Immature Granulocytes # 0.240 H Neutrophils # 9.7 H Lymphocytes # 1.9 Monocytes # 0.8 Eosinophils # 0.3 Basophils # 0.1 Nucleated Red Blood Cells # 0.0 Prothrombin Time Pending Prothrombin Time Ratio 1.3 INR International Normalized Ratio 1.32 Sodium Level 138 Potassium Level 4.8 Chloride Level 110 Carbon Dioxide Level 25 Anion Gap 3 L Blood Urea Nitrogen 51 H Creatinine 2.04 H Glucose Level 117 Calcium Level 7.5 L Phosphorus Level 3.0 Magnesium Level 1.7 Creatine Kinase 41 Creatine Kinase Index Pending Creatinine Kinase MB (Mass) Pending Troponin I Pending Albumin 1.9 #L Subjective 24 Hr Interval Summary Free Text/Dictation Patient still pleasantly confused and looking for his cigarettes. Knows he is in the hospital. Discussed with family Aricept helps with memory issues but family adamant that it be discontinued since causing the confusion. Plans for repeat EGD this afternoon. Exam/Review of Systems Exam Vitals Vital Signs Date Temp Pulse Resp B/P (MAP) Pulse Ox O2 O2 Flow FiO2 Time Delivery Rate 02/11/19 98.7 79 18 102/58 93 Nasal 3.5 11:35 (73) Cannula 02/11/19 21 09:24 Intake and Output 02/10/19 02/10/19 02/11/19 1515:00 23:00 07:00 IntakeIntake Total 600 ml 500 ml OutputOutput Total 700 ml 640 ml BalanceBalance -100 ml -140 ml Exam General: pleasantly confused. no acute distress Chest: nontender CVS: S1, S2, regular rate and rhythm, no murmurs Lungs: Diminished breath sounds at bases. no wheezing appreciated Abd: soft, nontender, nondistended. no rebound or guarding. bowel sounds present diffusely Ext: moving all extremities. no cyanosis, clubbing, or edema Skin: no rashes or lesions appreciated Results Results 24hrs Laboratory Tests Test 02/10/19 18:31 02/11/19 00:37 02/11/19 11:08 Hemoglobin 8.0 L 6.5 *L 6.7 *L Hematocrit 24.3 L 19.9 L 19.9 L White Blood Count 12.9 H Red Blood Count 2.26 #L Mean Corpuscular Volume 88.1 Mean Corpuscular Hemoglobin 29.6 Mean Corpuscular Hemoglobin Concent 33.7 Red Cell Distribution Width 15.2 H Platelet Count 269 # Mean Platelet Volume 10.3 Immature Granulocytes % 1.900 H Neutrophils % 75.0 Lymphocytes % 14.8 L Monocytes % 5.8 Eosinophils % 2.0 Basophils % 0.5 Nucleated Red Blood Cells % 0.2 H Immature Granulocytes # 0.240 H Neutrophils # 9.7 H Lymphocytes # 1.9 Monocytes # 0.8 Eosinophils # 0.3 Basophils # 0.1 Nucleated Red Blood Cells # 0.0 Prothrombin Time Pending Prothrombin Time Ratio 1.3 INR International Normalized Ratio 1.32 Sodium Level 138 Potassium Level 4.8 Chloride Level 110 Carbon Dioxide Level 25 Anion Gap 3 L Blood Urea Nitrogen 51 H Creatinine 2.04 H Glucose Level 117 Calcium Level 7.5 L Phosphorus Level 3.0 Magnesium Level 1.7 Creatine Kinase 41 Creatine Kinase Index Pending Creatinine Kinase MB (Mass) Pending Troponin I Pending Albumin 1.9 #L Medications Medication Current Medications Amlodipine Besylate (Norvasc) 10 mg DAILY PO Last administered on 02/11/19 09:12; Admin Dose 10 MG; Start 02/04/19 at 09:00 Cyclosporine (Restasis) 1 drop Q12 BOTH EYES Last administered on 02/11/19 09:13; Admin Dose 1 DROP; Start 02/03/19 at 21:00 Diclofenac Sodium (Voltaren 1% Gel) 2 gm QID TP Last administered on 02/11/19 09:13; Admin Dose 2 GM; Start 02/03/19 at 17:00 Metoprolol Succinate (Toprol Xl) 50 mg DAILY PO Last administered on 02/11/19 09:12; Admin Dose 50 MG; Start 02/04/19 at 09:00 Ranolazine (Ranexa) 500 mg Q12 PO Last administered on 02/11/19 09:12; Admin Dose 500 MG; Start 02/03/19 at 21:00 Tiotropium [place] (Spiriva) 1 inh DAILY INH Last administered on 02/09/19 09:19; Admin Dose 1 INH; Start 02/04/19 at 09:00 Levalbuterol (Xopenex Neb) 0.63 mg Q4H RESP THERAPY PRN HHN shortness of breath; Start 02/03/19 at 15:30 IV Flush (NS 3 ml) 3 ml PER PROTOCOL IV ; Start 02/03/19 at 15:30 Ondansetron HCl (Zofran Inj) 4 mg Q6H PRN IV NAUSEA/VOMITING; Start 02/03/19 at 15:30 Acetaminophen (Tylenol Tab) 650 mg Q6H PRN PO .PAIN 1-3 OR TEMP; Start 02/03/19 at 15:30 Docusate Sodium (Colace) 100 mg Q12H PRN PO .CONSTIPATION; Start 02/03/19 at 15:30 Magnesium Hydroxide (Milk Of Mag) 30 ml DAILY PRN PO .CONSTIPATION; Start 02/03/19 at 15:30 Tamsulosin HCl (Flomax) 0.4 mg BID PO Last administered on 02/11/19at 09:12; Admin Dose 0.4 MG; Start 02/04/19 at 09:00 Morphine Sulfate (morphine) 2 mg Q4H PRN IV SEVERE PAIN LEVEL 7-10 Last administered on 02/04/19 18:35; Admin Dose 2 MG; Start 02/03/19 at 16:30 Arformoterol Tartrate (Brovana (Neb)) 2 ml BID RESP THERAPY INH Last administered on 02/11/19 09:24; Admin Dose 2 ML; Start 02/03/19 at 22:00 Budesonide (Pulmicort (Neb)) 0.5 mg Q12H RESP THERAPY INH Last administered on 02/11/19 09:24; Admin Dose 0.5 MG; Start 02/03/19 at 22:00 Hydralazine HCl (Apresoline) 5 mg Q6H PRN IV ELEVATED BLOOD PRESSURE; Start 02/04/19 at 20:30 Nitroglycerin (Nitroglycerin (Sl Tab) 0.4 Mg) 1 tab Q5M PRN SL ANGINA Last administered on 02/05/19at 10:29; Admin Dose 1 TAB; Start 02/05/19 at 10:30 Isosorbide Dinitrate (Isordil) 10 mg TID PO Last administered on 02/11/19 09:13; Admin Dose 10 MG; Start 02/05/19 at 21:00 Sucralfate (Carafate) 1 gm QID PO Last administered on 02/11/19 09:13; Admin Dose 1 GM; Start 02/08/19 at 13:30 Famotidine (Pepcid Iv) 20 mg BID IV Last administered on 02/11/19 09:12; Admin Dose 20 MG; Start 02/08/19 at 21:00 Pantoprazole (Protonix Tab) 40 mg BID@0600,1800 PO Last administered on 02/10/19 18:31; Admin Dose 40 MG; Start 02/08/19 at 18:00 Octreotide Acetate 1 mg/ Dextrose 100 ml @ 5 mls/hr Q20H IV Last administered on 02/11/19 11:07; Admin Dose 5 MLS/HR; Start 02/08/19 at 16:00 Ceftriaxone Sodium 50 ml @ 100 mls/hr Q24H IVPB Last administered on 02/10/19 10:31; Admin Dose 100 MLS/HR; Start 02/10/19 at 10:00 JAE DURAN MD Feb 11, 2019 11:58
[2019-02-11] MEDS: CEFTRIAXONE 1 GM/50 ML (PMX) 50 ML IVPB SCH (12:07)
--- NOTE | 2019-02-11 13:53 | PREAC ---
Date/Time of Note Date/Time of Note DATE: 02/11/19 TIME: 13:52 Anesthesia Eval and Record Evaluation Time Pre-Procedure Interview DATE: 02/11/19 TIME: 13:52 Age 83 Sex male NPO: 8 hrs Preoperative diagnosis Active bleeding Planned procedure EGD Past Medical History Past Medical History: Includes Cardio: HTN, Dyslipidemia, CAD, CHF (EF 40%) Pulm: Smoking Hx, COPD Musculoskeletal: Osteoarthritis Renal: CKD GI: GERD Heme: Anemia Surgery & Anesthesia Issues No known issue Meds Anticoagulation: No Beta Alana within 24 hr: Yes Active Scripts Tiotropium [place]* (Spiriva*) 18 Mcg Cap.w.dev, 1 CAP INHALATION DAILY, #30 CAP 1 Refill Prov:MARC GLORIA 01/27/19 Reported Medications Naproxen* (Naproxen*) 500 Mg Tablet, 500 MG PO BID PRN for PAIN, TAB 01/20/19 Diclofenac Sodium* (Voltaren* Gel) 1% -100 Gm Gel, 2 GM TOP QID, #1 TUB 01/20/19 Budesonide-Formoterol Fumarate* (Symbicort*) 160-4.5 Hfa.aer.ad, 2 PUFF INHALATION BID, #1 EACH 01/20/19 Cyclosporine (RESTASIS) 1 Each Droperette, 1 DROP BOTH EYES Q12, #1 BOX 01/20/19 Ranolazine* (Ranexa*) 500 Mg Tab.sr.12h, 500 MG PO Q12, TAB 01/20/19 Tamsulosin Hcl* (Flomax*) 0.4 Mg Cap.er.24h, 0.4 MG PO DAILY, CAP 01/20/19 Linaclotide (LINZESS) 145 Mcg Capsule, 145 MCG PO DAILY, #30 CAP 01/20/19 Nebivolol Hcl* (Bystolic*) 10 Mg Tablet, 10 MG PO DAILY, #30 TAB 01/20/19 Omeprazole* (Omeprazole*) 20 Mg Capsule.dr, 20 MG PO DAILY, #30 CAP 01/20/19 Donepezil* (Aricept*) 5 Mg Tablet, 5 MG PO DAILY, TAB 01/20/19 Meloxicam* (Meloxicam*) 7.5 Mg Tablet, 7.5 MG PO DAILY, #30 TAB 01/20/19 Aspirin (Low Dose Aspirin) 81 Mg Tablet.dr, 81 MG PO DAILY, #30 TAB 01/20/19 Amlodipine Besylate* (Amlodipine Besylate*) 10 Mg Tablet, 10 MG PO DAILY, #30 TAB 01/20/19 Metoprolol Succinate* (Toprol XL*) 50 Mg Tab.er.24h, 50 MG PO DAILY, #30 TAB 01/20/19 Pentoxifylline* (Pentoxifylline*) 400 Mg Tablet.sa, 400 MG PO WITH MEALS, TAB 01/20/19 Current Medications Amlodipine Besylate (Norvasc) 10 mg DAILY PO Last administered on 02/11/19 09:12; Admin Dose 10 MG; Start 02/04/19 at 09:00 Cyclosporine (Restasis) 1 drop Q12 BOTH EYES Last administered on 02/11/19 09:13; Admin Dose 1 DROP; Start 02/03/19 at 21:00 Diclofenac Sodium (Voltaren 1% Gel) 2 gm QID TP Last administered on 02/11/19 09:13; Admin Dose 2 GM; Start 02/03/19 at 17:00 Metoprolol Succinate (Toprol Xl) 50 mg DAILY PO Last administered on 02/11/19 09:12; Admin Dose 50 MG; Start 02/04/19 at 09:00 Ranolazine (Ranexa) 500 mg Q12 PO Last administered on 02/11/19at 09:12; Admin Dose 500 MG; Start 02/03/19 at 21:00 Tiotropium [place] (Spiriva) 1 inh DAILY INH Last administered on 02/09/19 09:19; Admin Dose 1 INH; Start 02/04/19 at 09:00 Levalbuterol (Xopenex Neb) 0.63 mg Q4H RESP THERAPY PRN HHN shortness of breath; Start 02/03/19 at 15:30 IV Flush (NS 3 ml) 3 ml PER PROTOCOL IV ; Start 02/03/19 at 15:30 Ondansetron HCl (Zofran Inj) 4 mg Q6H PRN IV NAUSEA/VOMITING; Start 02/03/19 at 15:30 Acetaminophen (Tylenol Tab) 650 mg Q6H PRN PO .PAIN 1-3 OR TEMP; Start 02/03/19 at 15:30 Docusate Sodium (Colace) 100 mg Q12H PRN PO .CONSTIPATION; Start 02/03/19 at 15:30 Magnesium Hydroxide (Milk Of Mag) 30 ml DAILY PRN PO .CONSTIPATION; Start 02/03/19 at 15:30 Tamsulosin HCl (Flomax) 0.4 mg BID PO Last administered on 02/11/19 09:12; Admin Dose 0.4 MG; Start 02/04/19 at 09:00 Morphine Sulfate (morphine) 2 mg Q4H PRN IV SEVERE PAIN LEVEL 7-10 Last administered on 02/04/19at 18:35; Admin Dose 2 MG; Start 02/03/19 at 16:30 Arformoterol Tartrate (Brovana (Neb)) 2 ml BID RESP THERAPY INH Last administered on 02/11/19 09:24; Admin Dose 2 ML; Start 02/03/19 at 22:00 Budesonide (Pulmicort (Neb)) 0.5 mg Q12H RESP THERAPY INH Last administered on 02/11/19 09:24; Admin Dose 0.5 MG; Start 02/03/19 at 22:00 Hydralazine HCl (Apresoline) 5 mg Q6H PRN IV ELEVATED BLOOD PRESSURE; Start 02/04/19 at 20:30 Nitroglycerin (Nitroglycerin (Sl Tab) 0.4 Mg) 1 tab Q5M PRN SL ANGINA Last administered on 02/05/19 10:29; Admin Dose 1 TAB; Start 02/05/19 at 10:30 Isosorbide Dinitrate (Isordil) 10 mg TID PO Last administered on 02/11/19 09:13; Admin Dose 10 MG; Start 02/05/19 at 21:00 Sucralfate (Carafate) 1 gm QID PO Last administered on 02/11/19 09:13; Admin Dose 1 GM; Start 02/08/19 at 13:30 Famotidine (Pepcid Iv) 20 mg BID IV Last administered on 02/11/19 09:12; Admin Dose 20 MG; Start 02/08/19 at 21:00 Pantoprazole (Protonix Tab) 40 mg BID@0600,1800 PO Last administered on 02/10/19 18:31; Admin Dose 40 MG; Start 02/08/19 at 18:00 Octreotide Acetate 1 mg/ Dextrose 100 ml @ 5 mls/hr Q20H IV Last administered on 02/11/19at 11:07; Admin Dose 5 MLS/HR; Start 02/08/19 at 16:00 Ceftriaxone Sodium 50 ml @ 100 mls/hr Q24H IVPB Last administered on 02/11/19at 12:07; Admin Dose 100 MLS/HR; Start 02/10/19 at 10:00 Meds reviewed: Yes Allergies Coded Allergies: No Known Drug Allergies (Verified Allergy, Mild, 02/03/19) Allergies Reviewed: Yes Labs/Studies Labs Reviewed: Reviewed by anesthesiologist Result Diagram: 02/11/19 1108 02/11/19 1108 Laboratory Tests 02/11/19 11:08 Blood Bank Test 02/11/19 02:33 Antibody Screen NEGATIVE Blood Product Summary Counts Blood Type O POSITIVE Crossmatch Red Blood Cells test: N/A Studies: ECG, CXR (he trachea is midline. The cardiac silhouette is enlarged and pulmonary vascularity are within normal limits. Right lower lobe infiltrates are noted. As a right-sided pleural effusion. Bilateral emphysematous changes. Atherosclerotic calcification of the aortic knob is identified.. ), 2D Echo (EF 40%) Pre-procedure Exam Last vitals Vital Signs Date Temp Pulse Resp B/P (MAP) Pulse Ox O2 O2 Flow FiO2 Time Delivery Rate 02/11/19 81 12:11 02/11/19 98.7 18 102/58 93 Nasal 3.5 11:35 (73) Cannula 02/11/19 21 09:24 Airway: Adequate mouth opening Mallampati: Mallampati II Teeth: Normal Lung: Normal Heart: Normal ASA Physical Status ASA physical status: 4 Emergency: E Planned Anesthetic General/MAC: MAC Pre-operative Attestations Prior to commencing anesthesia and surgery, the patient was re-evaluated, there was verification of: *The patient's identity *The results of appropriate recent lab work and preoperative vital signs *The above evaluation not changing prior to induction *Anesthetic plan, risk benefits, alternative and complications discussed with patient/family; questions answered; patient/family understands, accepts and wishes to proceed. TIM JEAN Feb 11, 2019 13:53
[2019-02-11] MEDS ORDERED: PROPOFOL 20 ML ONE (15:28)
[2019-02-11] MEDS ORDERED: LIDOCAINE 100 MG SYRINGE ONE (15:28)
[2019-02-11] MEDS ORDERED: ETOMIDATE 20 MG INJ ONE (15:28)
[2019-02-11] MEDS ORDERED: LABETALOL HCL 20MG INJ IV PRN (16:00)
[2019-02-11] MEDS ORDERED: hydrALAzine 20 MG INJ IV PRN (16:00)
--- NOTE | 2019-02-11 17:21 | PAC ---
Date/Time of Note Date/Time of Note DATE: 02/11/19 TIME: 17:20 Post-Anesthesia Notes Post-Anesthesia Note Last documented vital signs Vital Signs Date Temp Pulse Resp B/P (MAP) Pulse Ox O2 O2 Flow FiO2 Time Delivery Rate 02/11/19 84 16:21 02/11/19 98.4 18 135/80 97 Nasal 3.0 16:01 (98) Cannula 02/11/19 21 09:24 Activity: WNL Respiratory function: WNL Cardiovascular function: WNL Mental status: Baseline Pain reasonably controlled: Yes Hydration appropriate: Yes Nausea/Vomiting absent: Yes TIM JEAN Feb 11, 2019 17:21
[2019-02-11] MEDS ORDERED: BISACODYL (EC) 5 MG TAB PO ONE (17:30)
[2019-02-11] MEDS ORDERED: MAGNESIUM CITRATE 300 ML BTL PO ONE (18:30)
[2019-02-11] MEDS ORDERED: POLYETHYLENE GLYCOL 3350 119 GM POWDER PO ONE (19:30)
[2019-02-12] VITALS (21 sets, daily range): BP systolic 93–144; BP diastolic 56–78; PULSE 70–89; RESP 13–20
--- NOTE | 2019-02-12 02:43 | PN ---
DATE: 02/11/2019 SUBJECTIVE: The patient is stable. No events overnight. The patient is scheduled for EGD. No malathi s evidence of GI bleeding. The patient is pending a PRBC transfusion. OBJECTIVE: VITAL SIGNS: Blood pressure is 102/58, respiration 18, pulse 79, temperature 98.7. HEENT: Head is normocephalic. NECK: Supple. HEART: Regular rate. LUNGS: Show diminished breath sounds at the base. ABDOMEN: Soft, nontender to palpation without rebound or guarding. EXTREMITIES: Negative for clubbing, cyanosis, no edema. DERMATOLOGIC: No rashes. MUSCULOSKELETAL: No joint effusions. NEUROLOGIC: No change in exam. MEDICATIONS: The patient's medications have been reviewed. LABORATORY DATA: Has been reviewed. ASSESSMENT AND PLAN: 1. Nonoliguric acute kidney injury with previous baseline creatinine around 2.0 mg/dL. Etiology of acute kidney injury is secondary to obstructive uropathy. Renal function is improved, currently [facility]. Continue current treatment plan, supportive care, renally dose all meds. 2. Obstructive uropathy secondary to urinary retention. The patient is status post Emerson catheter p lacement. Continue to monitor. 3. Anemia. Etiology is secondary to peptic ulcer disease. The patient's EEG showed evidence of ulc eration. Hemoglobin levels continue to decline. Continue to transfuse. Continue octreotide drip. Continue proton pump inhibitor. Follow up with GI. The patient may require a repeat EGD for further evaluation. 4. Mineral bone disorder. Monitor calcium and phosphorus levels. 5. Sepsis secondary to pneumonia. The patient is completing antibiotic course. 6. History of chronic obstructive pulmonary disease. Continue medical management. 7. Hypertension. Continue current blood pressure regimen. 8. History of heart failure. The patient is currently compensated. Continue to monitor. 9. History of peripheral vascular disease. Continue medical management. Dictated By: HECTOR BERMUDEZ DO NR/NTS Conf#: [id number] DID#: [id number] CC: JAE DURAN MD;*EndCC*
[2019-02-12] MEDS: PANTOPRAZOLE (EC) 40 MG TAB PO SCH ×2 (06:00→18:28)
[2019-02-12] MEDS ORDERED: POLYETHYLENE GLYCOL 3350 119 GM POWDER PO ONE (06:00)
[2019-02-12] MEDS: BUDESONIDE (NEB) 0.5MG/2ML AMP INH SCH ×2 (08:00→20:55)
[2019-02-12] MEDS ORDERED: BISACODYL (EC) 5 MG TAB PO ONE (08:00)
[2019-02-12] MEDS: FAMOTIDINE 20 MG INJ IV SCH ×2 (08:49→21:16)
[2019-02-12] MEDS: RANOLAZINE (SR) 500 MG TAB PO SCH ×2 (08:50→21:15)
[2019-02-12] MEDS: SUCRALFATE 1 GM TAB PO SCH ×4 (08:51→21:14)
[2019-02-12] MEDS: ISOSORBIDE DINITRATE 10 MG TAB PO SCH ×3 (08:51→21:15)
[2019-02-12] MEDS: AMLODIPINE 10 MG TAB PO SCH (08:51)
[2019-02-12] MEDS: TAMSULOSIN (SR) 0.4 MG CAP PO SCH ×2 (08:52→21:14)
[2019-02-12] MEDS: CYCLOSPORINE 0.05% OPH DROPERETTE BOTH EYES SCH ×2 (08:52→21:14)
[2019-02-12] MEDS: METOPROLOL (XL) 50 MG TAB PO SCH (08:52)
[2019-02-12] MEDS: DICLOFENAC SODIUM 1% GEL 100 GM TUBE TP SCH ×4 (09:00→21:16)
[2019-02-12] MEDS: ARFORMOTEROL TARTRATE 15MCG/2 ML AMP INH SCH ×2 (09:00→20:55)
[2019-02-12] MEDS: CEFTRIAXONE 1 GM/50 ML (PMX) 50 ML IVPB SCH (09:21)
--- NOTE | 2019-02-12 12:33 | CONS ---
Assessment/Plan Assessment/Plan Hospital Course (Demo Recall) IMP: 1.Chest pain-minimal positive troponin in the setting of renal failure and severe anemia. Likely type 2 demand infarct. NO CP on medical therapy at this time. Had recurrent incraese in setting of acute drop in hemoglobin/GIB 2.Cardiomyopathy-EF 40-45% by echo 11/04/18 3.anemia-worsening 4.renal failure-acute on chronic 5.PAD 6. Duodenal ulcer by endoscopy this admit on PPI/sucralfate Recc: -Tele -trend cardiac enzymes which are decreasing s/p transfusion -Contniue BB/norvasc/ranexa/isordil -transfuse PRBC's as necesssary -Continue PPI/H2 cynthia/sucralfate/octreotide -Will continue to hold asa at this time given findings of deodenal ulcer -Continue ranexa/iosrdil -undergoing tagged RBC scan Consultation Date/Type/Reason Admit Date/Time Feb 03, 2019 at 14:25 Initial Consult Date 02/05/19 Type of Consult Cardiology Reason for Consultation Nstemi Requesting Provider: JAE DURAN MD Date/Time of Note DATE: 02/12/19 TIME: 12:30 Exam/Review of Systems Vital Signs Vitals Vital Signs Date Temp Pulse Resp B/P (MAP) Pulse Ox O2 O2 Flow FiO2 Time Delivery Rate 02/12/19 81 12:19 02/12/19 98.0 18 126/69 92 Nasal 12:11 (88) Cannula 02/12/19 2.0 06:16 02/11/19 21 09:24 Intake and Output 02/11/19 02/11/19 02/12/19 1515:00 23:00 07:00 IntakeIntake Total 200 ml OutputOutput Total 1000 ml BalanceBalance 200 ml -1000 ml Exam Exam Review of Systems: CONSTITUTIONAL: No fevers, chills. PULMONARY: No sob CARDIOVASCULAR: No chest pain/palpitations GASTROINTESTINAL: No nausea/vomiting. GENITOURINARY: No hematuria/dysuria. MUSCULOSKELETAL: No myagias/arthalgias. PSYCHIATRIC: The patient denies depression. NEUROLOGIC: No weakness Constitutional: alert Psych: no complaints Head: normocephalic ENMT: mucosa pink and moist Neck: supple, jvd (8 cm water) Respiratory: clear to auscultation Cardiovascular: regular rate and rhythm Gastrointestinal: soft, non-tender Musculoskeletal: muscle weakness (generalized) Extremities: edema (none) Labs Result Diagram: 02/12/19 0539 02/12/19 0539 Results 24hrs Laboratory Tests Test 02/11/19 20:28 02/12/19 05:39 Hemoglobin 7.8 L 9.0 L Hematocrit 24.0 #L 27.9 L White Blood Count 12.0 H Red Blood Count 3.18 #L Mean Corpuscular Volume 87.7 Mean Corpuscular Hemoglobin 28.3 L Mean Corpuscular Hemoglobin Concent 32.3 Red Cell Distribution Width 16.9 H Platelet Count 234 Mean Platelet Volume 10.1 Immature Granulocytes % 3.700 H Neutrophils % 71.7 Lymphocytes % 14.1 L Monocytes % 6.1 Eosinophils % 3.7 Basophils % 0.7 Nucleated Red Blood Cells % 0.6 H Immature Granulocytes # 0.440 H Neutrophils # 8.6 H Lymphocytes # 1.7 Monocytes # 0.7 Eosinophils # 0.5 Basophils # 0.1 Nucleated Red Blood Cells # 0.1 H Sodium Level 144 Potassium Level 5.0 Chloride Level 112 H Carbon Dioxide Level 20 L Anion Gap 12 # Blood Urea Nitrogen 59 H Creatinine 2.02 H Glucose Level 92 Calcium Level 7.7 L Phosphorus Level 3.3 Magnesium Level 1.9 Creatinine Kinase MB (Mass) 2.59 H Troponin I 2.380 *H Albumin 2.2 L Medications Medications Current Medications Amlodipine Besylate (Norvasc) 10 mg DAILY PO Last administered on 02/12/19at 08:51; Admin Dose 10 MG; Start 02/04/19 at 09:00 Cyclosporine (Restasis) 1 drop Q12 BOTH EYES Last administered on 02/12/19 08:52; Admin Dose 1 DROP; Start 02/03/19 at 21:00 Diclofenac Sodium (Voltaren 1% Gel) 2 gm QID TP Last administered on 02/11/19 21:41; Admin Dose 2 GM; Start 02/03/19 at 17:00 Metoprolol Succinate (Toprol Xl) 50 mg DAILY PO Last administered on 02/12/19 08:52; Admin Dose 50 MG; Start 02/04/19 at 09:00 Ranolazine (Ranexa) 500 mg Q12 PO Last administered on 02/12/19at 08:50; Admin Dose 500 MG; Start 02/03/19 at 21:00 Tiotropium [place] (Spiriva) 1 inh DAILY INH Last administered on 02/09/19at 09:19; Admin Dose 1 INH; Start 02/04/19 at 09:00 Levalbuterol (Xopenex Neb) 0.63 mg Q4H RESP THERAPY PRN HHN shortness of breath; Start 02/03/19 at 15:30 IV Flush (NS 3 ml) 3 ml PER PROTOCOL IV ; Start 02/03/19 at 15:30 Ondansetron HCl (Zofran Inj) 4 mg Q6H PRN IV NAUSEA/VOMITING; Start 02/03/19 at 15:30 Acetaminophen (Tylenol Tab) 650 mg Q6H PRN PO .PAIN 1-3 OR TEMP; Start 02/03/19 at 15:30 Docusate Sodium (Colace) 100 mg Q12H PRN PO .CONSTIPATION; Start 02/03/19 at 15:30 Magnesium Hydroxide (Milk Of Mag) 30 ml DAILY PRN PO .CONSTIPATION; Start 02/03/19 at 15:30 Tamsulosin HCl (Flomax) 0.4 mg BID PO Last administered on 02/12/19at 08:52; Admin Dose 0.4 MG; Start 02/04/19 at 09:00 Morphine Sulfate (morphine) 2 mg Q4H PRN IV SEVERE PAIN LEVEL 7-10 Last administered on 02/04/19at 18:35; Admin Dose 2 MG; Start 02/03/19 at 16:30 Arformoterol Tartrate (Brovana (Neb)) 2 ml BID RESP THERAPY INH Last administered on 02/11/19at 20:40; Admin Dose 2 ML; Start 02/03/19 at 22:00 Budesonide (Pulmicort (Neb)) 0.5 mg Q12H RESP THERAPY INH Last administered on 02/11/19at 20:40; Admin Dose 0.5 MG; Start 02/03/19 at 22:00 Hydralazine HCl (Apresoline) 5 mg Q6H PRN IV ELEVATED BLOOD PRESSURE; Start 02/04/19 at 20:30 Nitroglycerin (Nitroglycerin (Sl Tab) 0.4 Mg) 1 tab Q5M PRN SL ANGINA Last administered on 02/05/19at 10:29; Admin Dose 1 TAB; Start 02/05/19 at 10:30 Isosorbide Dinitrate (Isordil) 10 mg TID PO Last administered on 02/12/19 08:51; Admin Dose 10 MG; Start 02/05/19 at 21:00 Sucralfate (Carafate) 1 gm QID PO Last administered on 02/12/19 08:51; Admin Dose 1 GM; Start 02/08/19 at 13:30 Famotidine (Pepcid Iv) 20 mg BID IV Last administered on 02/12/19at 08:49; Admin Dose 20 MG; Start 02/08/19 at 21:00 Pantoprazole (Protonix Tab) 40 mg BID@0600,1800 PO Last administered on 02/11/19at 21:41; Admin Dose 40 MG; Start 02/08/19 at 18:00 Ceftriaxone Sodium 50 ml @ 100 mls/hr Q24H IVPB Last administered on 02/12/19 09:21; Admin Dose 100 MLS/HR; Start 02/10/19 at 10:00 ELISABET MARCANO Feb 12, 2019 12:33
[2019-02-12] MEDS: TIOTROPIUM 18 MCG CAPSULE INHA DEV INH SCH (12:47)
--- NOTE | 2019-02-12 13:00 | PN ---
DATE: 02/12/2019 SUBJECTIVE: The patient is stable. No events overnight. OBJECTIVE: VITAL SIGNS: Blood pressure is 144/75, pulse 87, respirations 18, temperature 98.0. HEENT: Head is normocephalic. NECK: Supple. HEART: Regular rate. LUNGS: Show diminished breath sounds at the base. ABDOMEN: Soft, nontender to palpation without rebound or guarding. EXTREMITIES: Negative for clubbing, cyanosis, no edema. DERMATOLOGIC: No rashes. MUSCULOSKELETAL: No joint effusion. NEUROLOGIC: No change in exam. MEDICATIONS: Reviewed. LABORATORY DATA: Reviewed. IMAGING STUDIES: Reviewed. ASSESSMENT AND PLAN: 1. Nonoliguric acute kidney injury with previous baseline creatinine of 2.0 mg/dL. Etiology of acut e kidney injury is secondary to obstructive uropathy. The patient's renal function is currently at b aseline. Continue to monitor. 2. Obstructive uropathy secondary to urinary retention, improved after Emerson catheter placement. Co ntinue to monitor. 3. Anemia, etiology is secondary to gastrointestinal bleed due to peptic ulcer disease. The patient is status post repeat EGD. Continue current medical management. Follow up with GI. Continue salma n pump inhibitor. 4. Mineral bone disorder. Monitor calcium and phosphorus levels. 5. Sepsis secondary to pneumonia. The patient is completing antibiotic course. 6. History of chronic obstructive pulmonary disease. 7. Hypertension. Continue blood pressure regimen. 8. Heart failure. The patient is currently compensated. Continue to monitor. 9. Peripheral vascular disease. Continue medical management. 10. Elevated troponin, possible non-ST elevation myocardial infarction type 1 versus type 2. Contin ue to monitor. Follow up with cardiology. Dictated By: HECTOR BERMUDEZ DO NR/NTS Conf#: [id number] DID#: [id number] CC: ELISABET MELENDEZ MD; ELISABET MARCANO MD; JAE DURAN MD;*EndCC*
--- NOTE | 2019-02-12 14:35 | PN ---
Date/Time of Note Date/Time of Note DATE: 02/12/19 TIME: 14:32 Assessment/Plan VTE Prophylaxis Risk score (from Ns)>0 risk: 5 SCD applied (from Ns): Yes Pharmacological prophylaxis: NA/contraindicated Pharm contraindication: bleeding Lines/Catheters IV Catheter Type (from Nrsg): Peripheral IV Urinary Cath still in place: Yes Reason Cath still needed: skin wounds contaminated by urine Assessment/Plan Assessment/Plan 1. Acute blood loss anemia - EGD recently does show nonbleeding duodenal ulcers. - GI on board and appreciate recommendations. currently on PPI and octreotide 2. Acute toxic encephalopathy - on antibiotics for UTI. May be secondary to aricept being d/c but family adamant about medication not being restarted 3. MARTHA on CKD - most likely secondary to hemodynamics - mcrae in place - Nephrology consultation appreciated. - avoid nephrotoxic agents 4. Acute chest pain- resolved - most likely GI related - Cardiology on board and appreciate input - trop slightly elevated and most likely secondary to type 2 demand - recent ECHO from 10/2018 reveals EF 40-45% 5. Peptic ulcer disease, Duodenal ulcers - GI consultation appreciated and will continue on PPI and octreotide - started on Carafate 6. BPH - on flomax 7. COPD - continue O2 and neb tx - no exacerbation sx noted 8. HTN - BP stable - continue home medications and adjust as needed 9. PAD - stable - seen by Dr. Waite in the past 10. Systolic heart failure - elevated BNP noted but does not appear overloaded - CXR negative for pulmonary congestion and no peripheral edema appreciated 11. Disposition - Discharge when Hgb stable. Result Diagram: 02/12/19 0539 02/12/19 0539 Subjective 24 Hr Interval Summary Free Text/Dictation Went for cardiac stress test this morning. Otherwise no acute events. Exam/Review of Systems Exam Vitals Vital Signs Date Temp Pulse Resp B/P (MAP) Pulse Ox O2 O2 Flow FiO2 Time Delivery Rate 02/12/19 81 12:19 02/12/19 98.0 18 126/69 92 Nasal 12:11 (88) Cannula 02/12/19 2.0 06:16 02/11/19 21 09:24 Intake and Output 02/11/19 02/11/19 02/12/19 1515:00 23:00 07:00 IntakeIntake Total 200 ml OutputOutput Total 1000 ml BalanceBalance 200 ml -1000 ml Exam General: Frail appearing elderly Greek speaking man Chest: nontender CVS: S1, S2, regular rate and rhythm, no murmurs Lungs: Diminished breath sounds at bases. no wheezing appreciated Abd: soft, nontender, nondistended. no rebound or guarding. bowel sounds present diffusely Ext: moving all extremities. no cyanosis, clubbing, or edema Skin: no rashes or lesions appreciated Results Results 24hrs Laboratory Tests Test 02/11/19 20:28 02/12/19 05:39 Hemoglobin 7.8 L 9.0 L Hematocrit 24.0 #L 27.9 L White Blood Count 12.0 H Red Blood Count 3.18 #L Mean Corpuscular Volume 87.7 Mean Corpuscular Hemoglobin 28.3 L Mean Corpuscular Hemoglobin Concent 32.3 Red Cell Distribution Width 16.9 H Platelet Count 234 Mean Platelet Volume 10.1 Immature Granulocytes % 3.700 H Neutrophils % 71.7 Lymphocytes % 14.1 L Monocytes % 6.1 Eosinophils % 3.7 Basophils % 0.7 Nucleated Red Blood Cells % 0.6 H Immature Granulocytes # 0.440 H Neutrophils # 8.6 H Lymphocytes # 1.7 Monocytes # 0.7 Eosinophils # 0.5 Basophils # 0.1 Nucleated Red Blood Cells # 0.1 H Sodium Level 144 Potassium Level 5.0 Chloride Level 112 H Carbon Dioxide Level 20 L Anion Gap 12 # Blood Urea Nitrogen 59 H Creatinine 2.02 H Glucose Level 92 Calcium Level 7.7 L Phosphorus Level 3.3 Magnesium Level 1.9 Creatinine Kinase MB (Mass) 2.59 H Troponin I 2.380 *H Albumin 2.2 L Medications Medication Current Medications Amlodipine Besylate (Norvasc) 10 mg DAILY PO Last administered on 02/12/19at 08:51; Admin Dose 10 MG; Start 02/04/19 at 09:00 Cyclosporine (Restasis) 1 drop Q12 BOTH EYES Last administered on 02/12/19at 08:52; Admin Dose 1 DROP; Start 02/03/19 at 21:00 Diclofenac Sodium (Voltaren 1% Gel) 2 gm QID TP Last administered on 02/11/19at 21:41; Admin Dose 2 GM; Start 02/03/19 at 17:00 Metoprolol Succinate (Toprol Xl) 50 mg DAILY PO Last administered on 02/12/19 08:52; Admin Dose 50 MG; Start 02/04/19 at 09:00 Ranolazine (Ranexa) 500 mg Q12 PO Last administered on 02/12/19 08:50; Admin Dose 500 MG; Start 02/03/19 at 21:00 Tiotropium [place] (Spiriva) 1 inh DAILY INH Last administered on 02/12/19 12:47; Admin Dose 1 INH; Start 02/04/19 at 09:00 Levalbuterol (Xopenex Neb) 0.63 mg Q4H RESP THERAPY PRN HHN shortness of breath; Start 02/03/19 at 15:30 IV Flush (NS 3 ml) 3 ml PER PROTOCOL IV ; Start 02/03/19 at 15:30 Ondansetron HCl (Zofran Inj) 4 mg Q6H PRN IV NAUSEA/VOMITING; Start 02/03/19 at 15:30 Acetaminophen (Tylenol Tab) 650 mg Q6H PRN PO .PAIN 1-3 OR TEMP; Start 02/03/19 at 15:30 Docusate Sodium (Colace) 100 mg Q12H PRN PO .CONSTIPATION; Start 02/03/19 at 15:30 Magnesium Hydroxide (Milk Of Mag) 30 ml DAILY PRN PO .CONSTIPATION; Start 02/03/19 at 15:30 Tamsulosin HCl (Flomax) 0.4 mg BID PO Last administered on 02/12/19 08:52; Admin Dose 0.4 MG; Start 02/04/19 at 09:00 Morphine Sulfate (morphine) 2 mg Q4H PRN IV SEVERE PAIN LEVEL 7-10 Last administered on 02/04/19 18:35; Admin Dose 2 MG; Start 02/03/19 at 16:30 Arformoterol Tartrate (Brovana (Neb)) 2 ml BID RESP THERAPY INH Last administered on 02/11/19 20:40; Admin Dose 2 ML; Start 02/03/19 at 22:00 Budesonide (Pulmicort (Neb)) 0.5 mg Q12H RESP THERAPY INH Last administered on 02/11/19 20:40; Admin Dose 0.5 MG; Start 02/03/19 at 22:00 Hydralazine HCl (Apresoline) 5 mg Q6H PRN IV ELEVATED BLOOD PRESSURE; Start 02/04/19 at 20:30 Nitroglycerin (Nitroglycerin (Sl Tab) 0.4 Mg) 1 tab Q5M PRN SL ANGINA Last administered on 02/05/19at 10:29; Admin Dose 1 TAB; Start 02/05/19 at 10:30 Isosorbide Dinitrate (Isordil) 10 mg TID PO Last administered on 02/12/19 12:47; Admin Dose 10 MG; Start 02/05/19 at 21:00 Sucralfate (Carafate) 1 gm QID PO Last administered on 02/12/19 12:48; Admin Dose 1 GM; Start 02/08/19 at 13:30 Famotidine (Pepcid Iv) 20 mg BID IV Last administered on 02/12/19 08:49; Admin Dose 20 MG; Start 02/08/19 at 21:00 Pantoprazole (Protonix Tab) 40 mg BID@0600,1800 PO Last administered on 02/11/19 21:41; Admin Dose 40 MG; Start 02/08/19 at 18:00 Ceftriaxone Sodium 50 ml @ 100 mls/hr Q24H IVPB Last administered on 02/12/19 09:21; Admin Dose 100 MLS/HR; Start 02/10/19 at 10:00 ELISABET MELENDEZ MD Feb 12, 2019 14:35
--- NOTE | 2019-02-12 15:08 | PREAC ---
Date/Time of Note Date/Time of Note DATE: 02/12/19 TIME: 15:03 Anesthesia Eval and Record Evaluation Time Pre-Procedure Interview DATE: 02/12/19 TIME: 15:03 Age 83 Sex male NPO: 8 hrs Preoperative diagnosis GI bleed Planned procedure colonoscopy Past Medical History Past Medical History: Includes Cardio: HTN, Dyslipidemia, CAD, CHF Pulm: COPD Musculoskeletal: Osteoarthritis Renal: CKD Heme: Anemia Surgery & Anesthesia Issues No known issue Meds Anticoagulation: No Beta Alana within 24 hr: Yes Reason Beta Alana not given: COPD Active Scripts Tiotropium [place]* (Spiriva*) 18 Mcg Cap.w.dev, 1 CAP INHALATION DAILY, #30 CAP 1 Refill Prov:MARC GLORIA 01/27/19 Reported Medications Naproxen* (Naproxen*) 500 Mg Tablet, 500 MG PO BID PRN for PAIN, TAB 01/20/19 Diclofenac Sodium* (Voltaren* Gel) 1% -100 Gm Gel, 2 GM TOP QID, #1 TUB 01/20/19 Budesonide-Formoterol Fumarate* (Symbicort*) 160-4.5 Hfa.aer.ad, 2 PUFF INHALATION BID, #1 EACH 01/20/19 Cyclosporine (RESTASIS) 1 Each Droperette, 1 DROP BOTH EYES Q12, #1 BOX 01/20/19 Ranolazine* (Ranexa*) 500 Mg Tab.sr.12h, 500 MG PO Q12, TAB 01/20/19 Tamsulosin Hcl* (Flomax*) 0.4 Mg Cap.er.24h, 0.4 MG PO DAILY, CAP 01/20/19 Linaclotide (LINZESS) 145 Mcg Capsule, 145 MCG PO DAILY, #30 CAP 01/20/19 Nebivolol Hcl* (Bystolic*) 10 Mg Tablet, 10 MG PO DAILY, #30 TAB 01/20/19 Omeprazole* (Omeprazole*) 20 Mg Capsule.dr, 20 MG PO DAILY, #30 CAP 01/20/19 Donepezil* (Aricept*) 5 Mg Tablet, 5 MG PO DAILY, TAB 01/20/19 Meloxicam* (Meloxicam*) 7.5 Mg Tablet, 7.5 MG PO DAILY, #30 TAB 01/20/19 Aspirin (Low Dose Aspirin) 81 Mg Tablet.dr, 81 MG PO DAILY, #30 TAB 01/20/19 Amlodipine Besylate* (Amlodipine Besylate*) 10 Mg Tablet, 10 MG PO DAILY, #30 TAB 01/20/19 Metoprolol Succinate* (Toprol XL*) 50 Mg Tab.er.24h, 50 MG PO DAILY, #30 TAB 01/20/19 Pentoxifylline* (Pentoxifylline*) 400 Mg Tablet.sa, 400 MG PO WITH MEALS, TAB 01/20/19 Current Medications Amlodipine Besylate (Norvasc) 10 mg DAILY PO Last administered on 02/12/19at 08:51; Admin Dose 10 MG; Start 02/04/19 at 09:00 Cyclosporine (Restasis) 1 drop Q12 BOTH EYES Last administered on 02/12/19at 0 8:52; Admin Dose 1 DROP; Start 02/03/19 at 21:00 Diclofenac Sodium (Voltaren 1% Gel) 2 gm QID TP Last administered on 02/11/19at 21:41; Admin Dose 2 GM; Start 02/03/19 at 17:00 Metoprolol Succinate (Toprol Xl) 50 mg DAILY PO Last administered on 02/12/19at 08:52; Admin Dose 50 MG; Start 02/04/19 at 09:00 Ranolazine (Ranexa) 500 mg Q12 PO Last administered on 02/12/19at 08:50; Admin Dose 500 MG; Start 02/03/19 at 21:00 Tiotropium [place] (Spiriva) 1 inh DAILY INH Last administered on 02/12/19at 1 2:47; Admin Dose 1 INH; Start 02/04/19 at 09:00 Levalbuterol (Xopenex Neb) 0.63 mg Q4H RESP THERAPY PRN HHN shortness of breath; Start 02/03/19 at 15:30 IV Flush (NS 3 ml) 3 ml PER PROTOCOL IV ; Start 02/03/19 at 15:30 Ondansetron HCl (Zofran Inj) 4 mg Q6H PRN IV NAUSEA/VOMITING; Start 02/03/19 at 15:30 Acetaminophen (Tylenol Tab) 650 mg Q6H PRN PO .PAIN 1-3 OR TEMP; Start 02/03/19 at 15:30 Docusate Sodium (Colace) 100 mg Q12H PRN PO .CONSTIPATION; Start 02/03/19 at 15:30 Magnesium Hydroxide (Milk Of Mag) 30 ml DAILY PRN PO .CONSTIPATION; Start 02/03/19 at 15:30 Tamsulosin HCl (Flomax) 0.4 mg BID PO Last administered on 02/12/19 08:52; Admin Dose 0.4 MG; Start 02/04/19 at 09:00 Morphine Sulfate (morphine) 2 mg Q4H PRN IV SEVERE PAIN LEVEL 7-10 Last administered on 02/04/19 18:35; Admin Dose 2 MG; Start 02/03/19 at 16:30 Arformoterol Tartrate (Brovana (Neb)) 2 ml BID RESP THERAPY INH Last administered on 02/11/19 20:40; Admin Dose 2 ML; Start 02/03/19 at 22:00 Budesonide (Pulmicort (Neb)) 0.5 mg Q12H RESP THERAPY INH Last administered on 02/11/19 20:40; Admin Dose 0.5 MG; Start 02/03/19 at 22:00 Hydralazine HCl (Apresoline) 5 mg Q6H PRN IV ELEVATED BLOOD PRESSURE; Start 02/04/19 at 20:30 Nitroglycerin (Nitroglycerin (Sl Tab) 0.4 Mg) 1 tab Q5M PRN SL ANGINA Last ad ministered on 02/05/19 10:29; Admin Dose 1 TAB; Start 02/05/19 at 10:30 Isosorbide Dinitrate (Isordil) 10 mg TID PO Last administered on 02/12/19 12:47; Admin Dose 10 MG; Start 02/05/19 at 21:00 Sucralfate (Carafate) 1 gm QID PO Last administered on 02/12/19 12:48; Admin Dose 1 GM; Start 02/08/19 at 13:30 Famotidine (Pepcid Iv) 20 mg BID IV Last administered on 02/12/19 08:49; Admin Dose 20 MG; Start 02/08/19 at 21:00 Pantoprazole (Protonix Tab) 40 mg BID@0600,1800 PO Last administered on 02/11/19 21:41; Admin Dose 40 MG; Start 02/08/19 at 18:00 Ceftriaxone Sodium 50 ml @ 100 mls/hr Q24H IVPB Last administered on 02/12/19at 09:21; Admin Dose 100 MLS/HR; Start 02/10/19 at 10:00 Meds reviewed: Yes Allergies Coded Allergies: No Known Drug Allergies (Verified Allergy, Mild, 02/03/19) Allergies Reviewed: Yes Labs/Studies Labs Reviewed: Reviewed by anesthesiologist Result Diagram: 02/12/19 0539 02/12/19 0539 Laboratory Tests 02/12/19 05:39 test: N/A Studies: ECG (sr), CXR (cardiomegally) Pre-procedure Exam Last vitals Vital Signs Date Temp Pulse Resp B/P (MAP) Pulse Ox O2 O2 Flow FiO2 Time Delivery Rate 02/12/19 81 12:19 02/12/19 98.0 18 126/69 92 Nasal 12:11 (88) Cannula 02/12/19 2.0 06:16 02/11/19 21 09:24 Airway: Adequate mouth opening Mallampati: Mallampati II Teeth: Abnormal Lung: Normal Heart: Normal ASA Physical Status ASA physical status: 3 Emergency: None Planned Anesthetic General/MAC: MAC Planned Pain Management Parenteral pain med Pre-operative Attestations Prior to commencing anesthesia and surgery, the patient was re-evaluated, there was verification of: *The patient's identity *The results of appropriate recent lab work and preoperative vital signs *The above evaluation not changing prior to induction *Anesthetic plan, risk benefits, alternative and complications discussed with patient/family; questions answered; patient/family understands, accepts and wishes to proceed. JOEY RENAE MD Feb 12, 2019 15:08
[2019-02-12] MEDS ORDERED: ONDANSETRON 4 MG INJ IV PRN (15:30)
[2019-02-12] MEDS ORDERED: PROPOFOL 20 ML ONE (16:18)
[2019-02-12] MEDS ORDERED: FENTAnyl 50 MCG/ML VIAL ONE (16:18)
[2019-02-12] MEDS ORDERED: EPHEDrine 25 MG/5 ML SYG ONE (17:04)
--- NOTE | 2019-02-12 20:21 | PAC ---
Date/Time of Note Date/Time of Note DATE: 02/12/19 TIME: 20:21 Post-Anesthesia Notes Post-Anesthesia Note Last documented vital signs Vital Signs Date Temp Pulse Resp B/P (MAP) Pulse Ox O2 O2 Flow FiO2 Time Delivery Rate 02/12/19 97.4 72 17 122/68 92 Nasal 19:38 (86) Cannula 02/12/19 3.0 19:10 02/11/19 21 09:24 Activity: WNL Respiratory function: WNL Cardiovascular function: WNL Mental status: Baseline Pain reasonably controlled: Yes Hydration appropriate: Yes Nausea/Vomiting absent: No JOEY RENAE MD Feb 12, 2019 20:21
[2019-02-13] VITALS (12 sets, daily range): BP systolic 111–134; BP diastolic 60–71; PULSE 69–90; RESP 18–19
[2019-02-13] MEDS: PANTOPRAZOLE (EC) 40 MG TAB PO SCH ×2 (06:33→17:11)
[2019-02-13] MEDS: ARFORMOTEROL TARTRATE 15MCG/2 ML AMP INH SCH ×2 (08:59→20:23)
[2019-02-13] MEDS: TIOTROPIUM 18 MCG CAPSULE INHA DEV INH SCH (09:00)
[2019-02-13] MEDS: BUDESONIDE (NEB) 0.5MG/2ML AMP INH SCH ×2 (09:03→20:23)
[2019-02-13] MEDS: CEFTRIAXONE 1 GM/50 ML (PMX) 50 ML IVPB SCH (09:36)
[2019-02-13] MEDS: FAMOTIDINE 20 MG INJ IV SCH (09:36)
[2019-02-13] MEDS: TAMSULOSIN (SR) 0.4 MG CAP PO SCH ×2 (09:36→21:29)
[2019-02-13] MEDS: SUCRALFATE 1 GM TAB PO SCH ×4 (09:37→21:29)
[2019-02-13] MEDS: CYCLOSPORINE 0.05% OPH DROPERETTE BOTH EYES SCH ×2 (09:37→21:29)
[2019-02-13] MEDS: AMLODIPINE 10 MG TAB PO SCH (09:37)
[2019-02-13] MEDS: RANOLAZINE (SR) 500 MG TAB PO SCH ×2 (09:37→21:27)
[2019-02-13] MEDS: METOPROLOL (XL) 50 MG TAB PO SCH (09:38)
[2019-02-13] MEDS: ISOSORBIDE DINITRATE 10 MG TAB PO SCH ×3 (09:38→21:27)
[2019-02-13] MEDS: DICLOFENAC SODIUM 1% GEL 100 GM TUBE TP SCH ×4 (09:38→21:29)
--- NOTE | 2019-02-13 10:40 | PN ---
DATE: 02/13/2019 SUBJECTIVE: The patient is stable, no events overnight. OBJECTIVE: VITAL SIGNS: Blood pressure 132/66, pulse 82, respiration 19, temperature 98.1. HEENT: Head is normocephalic. NECK: Supple. HEART: Regular rate. LUNGS: Show diminished breath sounds at the base. ABDOMEN: Soft, nontender to palpation without rebound or guarding. EXTREMITIES: Negative for clubbing, cyanosis, no edema. DERMATOLOGIC: No rashes. MUSCULOSKELETAL: No joint effusion. NEUROLOGIC: No change in exam. MEDICATIONS: The patient's medications have been reviewed. LABORATORY DATA: Has been reviewed. IMAGING STUDIES: Have been reviewed. ASSESSMENT AND PLAN: 1. Nonoliguric acute kidney injury with previous baseline creatinine 2.0 mg/dL. Etiology of MARTHA is secondary to obstructive uropathy. The patient's renal function is currently at baseline. Continue current treatment plan. 2. Obstructive uropathy secondary to urinary intention. Improved after Emerson catheter placement. C ontinue to monitor. 3. Anemia, etiology is felt to be secondary to peptic ulcer disease. The patient is status post rep eat EGD, no active bleeding. Continue medical management. Continue PPI. Follow up with GI. 4. Mineral bone disorder. Monitor calcium and phosphorus levels. 5. Sepsis secondary to pneumonia. Continue current antibiotic regimen. 6. History of chronic obstructive pulmonary disease. 7. Hypertension. Continue current blood pressure regimen. 8. History of heart failure, currently compensated. Continue medical management. 9. Peripheral vascular disease. Continue current treatment plan. 10. Elevated troponin, likely non-STEMI type 2. Continue to monitor. Follow up with cardiology. Dictated By: HECTOR BERMUDEZ DO NR/NTS Conf#: [id number] DID#: [id number] CC: JAE DURAN MD; ELISABET MELENDEZ MD; ELISABET MARCANO MD;*EndCC*
--- NOTE | 2019-02-13 11:42 | PN ---
Date/Time of Note Date/Time of Note DATE: 02/13/19 TIME: 11:19 Assessment/Plan VTE Prophylaxis Risk score (from Nsg)>0 risk: 6 SCD applied (from Ns): Yes SCD contraindicated: other (scds) Pharmacological prophylaxis: other (scds) Lines/Catheters IV [facility] (from [facility] Saline Lock Urinary Cath still in place: Yes Reason Cath still needed: other (indicate) (monitor output) Assessment/Plan Hospital Course Assessment/Plan Assessment: Acute on chronic anemia with reported dark stool EGD 02/06/2019 10 mm post bulbar duodenal ulceration with visible vessel. Endo Clip applied. 10 mm clean base duodenal ulcer. Moderate gastritis rule out H. pylori infection, biopsies obtained. Severe erosive esophagitis. Hiatal hernia Colonoscopy 02/06/19 -Poor prep for colonoscopy- Precludes adequate examination 02/12/19 colonoscopy 7 mm polyp in the proximal ascending colon. Snare and retrieved 10 mm pedunculated polyp in the sigmoid colon. Snared and retrieved. Evidence of diluted blood in the entire colon. No bleeding lesion is identified. Terminal ileum show small amounts of diluted blood with no lesions. Moderate-sized internal hemorrhoids are present otherwise the mucosa of all segments of the colon appears within normal limits. It was decided to proceed with emergent reevaluation of the upper GI tract including push enteroscopy 02/12/19 enteroscopy Moderate distal esophagitis Previously Endo Clip duodenal ulcer with no evidence of rebleeding. Additionally duodenal ulcer almost completely healed. Enteroscopy to the mid jejunum with no bleeding lesions identified Acute chest pain-being followed by cardiology Right lower lobe pneumonia-on antibiotics MARTHA on CKD Systolic heart failure- appears compensated COPD Hypertension Plan: Continue to closely observe the patient. Reviewed delayed nuclear bleeding scan images- 3 hours post injection, which do not reveal new abnormal areas of increased uptake. If evidence of re-recurrent bleeding consider nuclear medicine bleeding scan versus angiography. If patient becomes stable CT enterography should probably be done prior to discharge and consider capsule endoscopy as an outpatient Patient seen in collaboration with Dr. Knott Subjective: Sitter at bedside,no vert signs of GI bleed noted today HGB 8.1 today. Will continue close observation. Spoke to patient's family Kathy Discussed results of nuclear med bleeding scan, EGD with enteroscopy and colonoscopy. Understanding was verbalized and plan was agreeable PHYSICAL EXAMINATION: GENERAL: Well developed, well nourished, alert & oriented,sitter at bedside SKIN: No lesions. HEAD: Normocephalic, atraumatic, no tenderness. EYES: Pupils equal reactive to light and accommodation, no discharge. EARS/NOSE AND THROAT: Ears normal, nose normal, oropharynx normal, oral membranes well hydrated without lesions. NECK: Supple, no masses, thyroid normal. CHEST: Inspection within normal limits. CARDIOVASCULAR: Heart: Regular rate and rhythm RESPIRATORY: Lungs clear to auscultation. GASTROINTESTINAL AND LIVER: Abdomen: Soft, non tenderness, non-distended, no hernias, no rebound tenderness, normoactive bowel sounds. Rectal: Deferred. GENITOURINARY: Male genitalia within normal limits. Emerson catheter in place EXTREMITIES: No cyanosis, clubbing or edema. Result Diagram: 02/13/19 0505 02/13/19 0503 Results 24hrs Laboratory Tests Test 02/13/19 05:03 02/13/19 05:05 Sodium Level 140 Potassium Level 4.1 Chloride Level 112 H Carbon Dioxide Level 23 Anion Gap 5 Blood Urea Nitrogen 48 #H Creatinine 1.98 H Glucose Level 71 Calcium Level 7.4 L Phosphorus Level 3.5 Magnesium Level 1.9 Troponin I 1.480 *H Albumin 2.0 L White Blood Count 10.3 Red Blood Count 2.87 L Hemoglobin 8.1 L Hematocrit 25.3 L Mean Corpuscular Volume 88.2 Mean Corpuscular Hemoglobin 28.2 L Mean Corpuscular Hemoglobin Concent 32.0 Red Cell Distribution Width 17.2 H Platelet Count 245 Mean Platelet Volume 10.1 Immature Granulocytes % 2.100 H Neutrophils % 70.7 Lymphocytes % 15.6 Monocytes % 6.4 Eosinophils % 4.6 Basophils % 0.6 Nucleated Red Blood Cells % 0.0 Immature Granulocytes # 0.220 H Neutrophils # 7.2 Lymphocytes # 1.6 Monocytes # 0.7 Eosinophils # 0.5 Basophils # 0.1 Nucleated Red Blood Cells # 0.0 Exam/Review of Systems Exam Vitals Vital Signs Date Temp Pulse Resp B/P (MAP) Pulse Ox O2 O2 Flow FiO2 Time Delivery Rate 02/13/19 Nasal 3.0 09:30 Cannula 02/13/19 92 18 93 09:08 02/13/19 98.1 132/66 08:12 (88) 02/11/19 21 09:24 Intake and Output 02/12/19 02/12/19 02/13/19 1515:00 23:00 07:00 IntakeIntake Total 820 ml 836 ml OutputOutput Total 1110 ml 700 ml BalanceBalance -290 ml 136 ml Results Results 24hrs Laboratory Tests Test 02/13/19 05:03 02/13/19 05:05 Sodium Level 140 Potassium Level 4.1 Chloride Level 112 H Carbon Dioxide Level 23 Anion Gap 5 Blood Urea Nitrogen 48 #H Creatinine 1.98 H Glucose Level 71 Calcium Level 7.4 L Phosphorus Level 3.5 Magnesium Level 1.9 Troponin I 1.480 *H Albumin 2.0 L White Blood Count 10.3 Red Blood Count 2.87 L Hemoglobin 8.1 L Hematocrit 25.3 L Mean Corpuscular Volume 88.2 Mean Corpuscular Hemoglobin 28.2 L Mean Corpuscular Hemoglobin Concent 32.0 Red Cell Distribution Width 17.2 H Platelet Count 245 Mean Platelet Volume 10.1 Immature Granulocytes % 2.100 H Neutrophils % 70.7 Lymphocytes % 15.6 Monocytes % 6.4 Eosinophils % 4.6 Basophils % 0.6 Nucleated Red Blood Cells % 0.0 Immature Granulocytes # 0.220 H Neutrophils # 7.2 Lymphocytes # 1.6 Monocytes # 0.7 Eosinophils # 0.5 Basophils # 0.1 Nucleated Red Blood Cells # 0.0 Medications Medication Current Medications Amlodipine Besylate (Norvasc) 10 mg DAILY PO Last administered on 02/13/19 09:37; Admin Dose 10 MG; Start 02/04/19 at 09:00 Cyclosporine (Restasis) 1 drop Q12 BOTH EYES Last administered on 02/13/19 09:37; Admin Dose 1 DROP; Start 02/03/19 at 21:00 Diclofenac Sodium (Voltaren 1% Gel) 2 gm QID TP Last administered on 02/13/19 09:38; Admin Dose 2 GM; Start 02/03/19 at 17:00 Metoprolol Succinate (Toprol Xl) 50 mg DAILY PO Last administered on 02/13/19 09:38; Admin Dose 50 MG; Start 02/04/19 at 09:00 Ranolazine (Ranexa) 500 mg Q12 PO Last administered on 02/13/19 09:37; Admin Dose 500 MG; Start 02/03/19 at 21:00 Tiotropium [place] (Spiriva) 1 inh DAILY INH Last administered on 02/12/19 12:47; Admin Dose 1 INH; Start 02/04/19 at 09:00 Levalbuterol (Xopenex Neb) 0.63 mg Q4H RESP THERAPY PRN HHN shortness of breath; Start 02/03/19 at 15:30 IV Flush (NS 3 ml) 3 ml PER PROTOCOL IV ; Start 02/03/19 at 15:30 Ondansetron HCl (Zofran Inj) 4 mg Q6H PRN IV NAUSEA/VOMITING; Start 02/03/19 at 15:30 Acetaminophen (Tylenol Tab) 650 mg Q6H PRN PO .PAIN 1-3 OR TEMP; Start 02/03/19 at 15:30 Docusate Sodium (Colace) 100 mg Q12H PRN PO .CONSTIPATION; Start 02/03/19 at 15:30 Magnesium Hydroxide (Milk Of Mag) 30 ml DAILY PRN PO .CONSTIPATION; Start 02/03/19 at 15:30 Tamsulosin HCl (Flomax) 0.4 mg BID PO Last administered on 02/13/19at 09:36; Admin Dose 0.4 MG; Start 02/04/19 at 09:00 Morphine Sulfate (morphine) 2 mg Q4H PRN IV SEVERE PAIN LEVEL 7-10 Last administered on 02/04/19 18:35; Admin Dose 2 MG; Start 02/03/19 at 16:30 Arformoterol Tartrate (Brovana (Neb)) 2 ml BID RESP THERAPY INH Last administered on 02/13/19 08:59; Admin Dose 2 ML; Start 02/03/19 at 22:00 Budesonide (Pulmicort (Neb)) 0.5 mg Q12H RESP THERAPY INH Last administered on 02/13/19 09:03; Admin Dose 0.5 MG; Start 02/03/19 at 22:00 Hydralazine HCl (Apresoline) 5 mg Q6H PRN IV ELEVATED BLOOD PRESSURE; Start 02/04/19 at 20:30 Nitroglycerin (Nitroglycerin (Sl Tab) 0.4 Mg) 1 tab Q5M PRN SL ANGINA Last administered on 02/05/19at 10:29; Admin Dose 1 TAB; Start 02/05/19 at 10:30 Isosorbide Dinitrate (Isordil) 10 mg TID PO Last administered on 02/13/19at 09:38; Admin Dose 10 MG; Start 02/05/19 at 21:00 Sucralfate (Carafate) 1 gm QID PO Last administered on 02/13/19at 09:37; Admin Dose 1 GM; Start 02/08/19 at 13:30 Pantoprazole (Protonix Tab) 40 mg BID@0600,1800 PO Last administered on 02/13/19at 06:33; Admin Dose 40 MG; Start 02/08/19 at 18:00 Ceftriaxone Sodium 50 ml @ 100 mls/hr Q24H IVPB Last administered on 02/13/19at 09:36; Admin Dose 100 MLS/HR; Start 02/10/19 at 10:00 Famotidine (Pepcid) 20 mg DAILY PO ; Start 02/13/19 at 21:00 ISIDRO ARREDONDO Feb 13, 2019 11:34
--- NOTE | 2019-02-13 12:50 | CONS ---
Assessment/Plan Assessment/Plan Hospital Course (Demo Recall) IMP: 1.Chest pain-minimal positive troponin in the setting of renal failure and severe anemia. Likely type 2 demand infarct. NO CP on medical therapy at this time. Had recurrent incraese in setting of acute drop in hemoglobin/GIB 2.Cardiomyopathy-EF 40-45% by echo 11/04/18 3.anemia-worsening 4.renal failure-acute on chronic 5.PAD 6. Duodenal ulcer by endoscopy this admit on PPI/sucralfate Recc: -Tele -trend cardiac enzymes which are decreasing s/p transfusion -Contniue BB/norvasc/ranexa/isordil -transfuse PRBC's as necesssary -Continue PPI/H2 cynthia/sucralfate/octreotide -Will continue to hold asa at this time given findings of deodenal ulcer -Continue ranexa/iosrdil Consultation Date/Type/Reason Admit Date/Time Feb 03, 2019 at 14:25 Initial Consult Date 02/05/19 Type of Consult Cardiology Reason for Consultation chest pain Requesting Provider: JAE DURAN MD Date/Time of Note DATE: 02/13/19 TIME: 12:43 Exam/Review of Systems Vital Signs Vitals Vital Signs Date Temp Pulse Resp B/P (MAP) Pulse Ox O2 O2 Flow FiO2 Time Delivery Rate 02/13/19 80 12:16 02/13/19 98.0 18 111/60 92 11:36 (77) 02/13/19 Nasal 3.0 09:30 Cannula 02/11/19 21 09:24 Intake and Output 02/12/19 02/12/19 02/13/19 1515:00 23:00 07:00 IntakeIntake Total 820 ml 836 ml OutputOutput Total 1110 ml 700 ml BalanceBalance -290 ml 136 ml Exam Exam Review of Systems: CONSTITUTIONAL: No fevers, chills. PULMONARY: No sob CARDIOVASCULAR: No chest pain/palpitations GASTROINTESTINAL: No nausea/vomiting. GENITOURINARY: No hematuria/dysuria. MUSCULOSKELETAL: No myagias/arthalgias. PSYCHIATRIC: The patient denies depression. NEUROLOGIC: No weakness Constitutional: alert Psych: no complaints Head: normocephalic ENMT: mucosa pink and moist Neck: supple, jvd (9 cm water) Respiratory: diminished breath sounds (at bases/B) Cardiovascular: regular rate and rhythm Gastrointestinal: soft, non-tender Musculoskeletal: muscle tone (normal) Extremities: edema (none) Neurological: other (No focal deficits) Labs Result Diagram: 02/13/19 0505 02/13/19 0503 Results 24hrs Laboratory Tests Test 02/13/19 05:03 02/13/19 05:05 Sodium Level 140 Potassium Level 4.1 Chloride Level 112 H Carbon Dioxide Level 23 Anion Gap 5 Blood Urea Nitrogen 48 #H Creatinine 1.98 H Glucose Level 71 Calcium Level 7.4 L Phosphorus Level 3.5 Magnesium Level 1.9 Troponin I 1.480 *H Albumin 2.0 L White Blood Count 10.3 Red Blood Count 2.87 L Hemoglobin 8.1 L Hematocrit 25.3 L Mean Corpuscular Volume 88.2 Mean Corpuscular Hemoglobin 28.2 L Mean Corpuscular Hemoglobin Concent 32.0 Red Cell Distribution Width 17.2 H Platelet Count 245 Mean Platelet Volume 10.1 Immature Granulocytes % 2.100 H Neutrophils % 70.7 Lymphocytes % 15.6 Monocytes % 6.4 Eosinophils % 4.6 Basophils % 0.6 Nucleated Red Blood Cells % 0.0 Immature Granulocytes # 0.220 H Neutrophils # 7.2 Lymphocytes # 1.6 Monocytes # 0.7 Eosinophils # 0.5 Basophils # 0.1 Nucleated Red Blood Cells # 0.0 Medications Medications Current Medications Amlodipine Besylate (Norvasc) 10 mg DAILY PO Last administered on 02/13/19at 09:37; Admin Dose 10 MG; Start 02/04/19 at 09:00 Cyclosporine (Restasis) 1 drop Q12 BOTH EYES Last administered on 02/13/19at 09:37; Admin Dose 1 DROP; Start 02/03/19 at 21:00 Diclofenac Sodium (Voltaren 1% Gel) 2 gm QID TP Last administered on 02/13/19at 09:38; Admin Dose 2 GM; Start 02/03/19 at 17:00 Metoprolol Succinate (Toprol Xl) 50 mg DAILY PO Last administered on 02/13/19at 09:38; Admin Dose 50 MG; Start 02/04/19 at 09:00 Ranolazine (Ranexa) 500 mg Q12 PO Last administered on 02/13/19at 09:37; Admin Dose 500 MG; Start 02/03/19 at 21:00 Tiotropium [place] (Spiriva) 1 inh DAILY INH Last administered on 02/12/19at 12:47; Admin Dose 1 INH; Start 02/04/19 at 09:00 Levalbuterol (Xopenex Neb) 0.63 mg Q4H RESP THERAPY PRN HHN shortness of breath; Start 02/03/19 at 15:30 IV Flush (NS 3 ml) 3 ml PER PROTOCOL IV ; Start 02/03/19 at 15:30 Ondansetron HCl (Zofran Inj) 4 mg Q6H PRN IV NAUSEA/VOMITING; Start 02/03/19 at 15:30 Acetaminophen (Tylenol Tab) 650 mg Q6H PRN PO .PAIN 1-3 OR TEMP; Start 02/03/19 at 15:30 Docusate Sodium (Colace) 100 mg Q12H PRN PO .CONSTIPATION; Start 02/03/19 at 15:30 Magnesium Hydroxide (Milk Of Mag) 30 ml DAILY PRN PO .CONSTIPATION; Start 02/03/19 at 15:30 Tamsulosin HCl (Flomax) 0.4 mg BID PO Last administered on 02/13/19at 09:36; Admin Dose 0.4 MG; Start 02/04/19 at 09:00 Morphine Sulfate (morphine) 2 mg Q4H PRN IV SEVERE PAIN LEVEL 7-10 Last administered on 02/04/19at 18:35; Admin Dose 2 MG; Start 02/03/19 at 16:30 Arformoterol Tartrate (Brovana (Neb)) 2 ml BID RESP THERAPY INH Last administered on 02/13/19at 08:59; Admin Dose 2 ML; Start 02/03/19 at 22:00 Budesonide (Pulmicort (Neb)) 0.5 mg Q12H RESP THERAPY INH Last administered on 02/13/19 09:03; Admin Dose 0.5 MG; Start 02/03/19 at 22:00 Hydralazine HCl (Apresoline) 5 mg Q6H PRN IV ELEVATED BLOOD PRESSURE; Start 02/04/19 at 20:30 Nitroglycerin (Nitroglycerin (Sl Tab) 0.4 Mg) 1 tab Q5M PRN SL ANGINA Last administered on 02/05/19at 10:29; Admin Dose 1 TAB; Start 02/05/19 at 10:30 Isosorbide Dinitrate (Isordil) 10 mg TID PO Last administered on 02/13/19 09:38; Admin Dose 10 MG; Start 02/05/19 at 21:00 Sucralfate (Carafate) 1 gm QID PO Last administered on 02/13/19at 09:37; Admin Dose 1 GM; Start 02/08/19 at 13:30 Pantoprazole (Protonix Tab) 40 mg BID@0600,1800 PO Last administered on 02/13/19at 06:33; Admin Dose 40 MG; Start 02/08/19 at 18:00 Ceftriaxone Sodium 50 ml @ 100 mls/hr Q24H IVPB Last administered on 02/13/19at 09:36; Admin Dose 100 MLS/HR; Start 02/10/19 at 10:00 ELISABET MARCANO Feb 13, 2019 12:50
--- NOTE | 2019-02-13 12:58 | PN ---
Date/Time of Note Date/Time of Note DATE: 02/13/19 TIME: 12:55 Assessment/Plan VTE Prophylaxis Risk score (from Ns)>0 risk: 6 SCD applied (from Ns): Yes Pharmacological prophylaxis: NA/contraindicated Pharm contraindication: bleeding Lines/Catheters IV Catheter Type (from Nrs): Saline Lock Urinary Cath still in place: Yes Reason Cath still needed: skin wounds contaminated by urine Assessment/Plan Assessment/Plan 83 yo M with PMH COPD, chronic kidney disease, peripheral artery disease, cardiomyopathy with EF 40-45%, and systolic congestive heart failure admitted for chest pain, GI bleed. 1. Acute blood loss anemia - EGD 02/06 showed bleeding duodenal ulcer, now clipped. - Repeat EGD + colonoscopy + push enteroscopy on 02/12 not showing active bleed (done after patient had episode of melena) - Continue to watch closely for more GI bleed. 2. Acute toxic encephalopathy - on antibiotics for UTI. May be secondary to aricept being d/c but family adamant about medication not being restarted 3. MARTHA on CKD - most likely secondary to hemodynamics - mcrae in place - Nephrology consultation appreciated. - avoid nephrotoxic agents 4. Acute chest pain- resolved - most likely GI related - Cardiology on board and appreciate input - trop slightly elevated and most likely secondary to type 2 demand - recent ECHO from 10/2018 reveals EF 40-45% 5. Peptic ulcer disease, Duodenal ulcers - GI consultation appreciated and will continue on PPI and octreotide - started on Carafate 6. BPH - on flomax 7. COPD - continue O2 and neb tx - no exacerbation sx noted 8. HTN - BP stable - continue home medications and adjust as needed 9. PAD - stable - seen by Dr. Waite in the past 10. Systolic heart failure - elevated BNP noted but does not appear overloaded - CXR negative for pulmonary congestion and no peripheral edema appreciated 11. Disposition - Discharge when Hgb stable. Result Diagram: 02/13/19 0505 02/13/19 0503 Subjective 24 Hr Interval Summary Free Text/Dictation No acute overnight events. NM tagged RBC scan yesterday. Family updated. Exam/Review of Systems Exam Vitals Vital Signs Date Temp Pulse Resp B/P (MAP) Pulse Ox O2 O2 Flow FiO2 Time Delivery Rate 02/13/19 80 12:16 02/13/19 98.0 18 111/60 92 11:36 (77) 02/13/19 Nasal 3.0 09:30 Cannula 02/11/19 21 09:24 Intake and Output 02/12/19 02/12/19 02/13/19 1515:00 23:00 07:00 IntakeIntake Total 820 ml 836 ml OutputOutput Total 1110 ml 700 ml BalanceBalance -290 ml 136 ml Exam General: Frail appearing elderly Kyrgyz speaking man Chest: nontender CVS: S1, S2, regular rate and rhythm, no murmurs Lungs: Diminished breath sounds at bases. no wheezing appreciated Abd: soft, nontender, nondistended. no rebound or guarding. bowel sounds present diffusely Ext: moving all extremities. no cyanosis, clubbing, or edema Skin: no rashes or lesions appreciated Results Results 24hrs Laboratory Tests Test 02/13/19 05:03 02/13/19 05:05 Sodium Level 140 Potassium Level 4.1 Chloride Level 112 H Carbon Dioxide Level 23 Anion Gap 5 Blood Urea Nitrogen 48 #H Creatinine 1.98 H Glucose Level 71 Calcium Level 7.4 L Phosphorus Level 3.5 Magnesium Level 1.9 Troponin I 1.480 *H Albumin 2.0 L White Blood Count 10.3 Red Blood Count 2.87 L Hemoglobin 8.1 L Hematocrit 25.3 L Mean Corpuscular Volume 88.2 Mean Corpuscular Hemoglobin 28.2 L Mean Corpuscular Hemoglobin Concent 32.0 Red Cell Distribution Width 17.2 H Platelet Count 245 Mean Platelet Volume 10.1 Immature Granulocytes % 2.100 H Neutrophils % 70.7 Lymphocytes % 15.6 Monocytes % 6.4 Eosinophils % 4.6 Basophils % 0.6 Nucleated Red Blood Cells % 0.0 Immature Granulocytes # 0.220 H Neutrophils # 7.2 Lymphocytes # 1.6 Monocytes # 0.7 Eosinophils # 0.5 Basophils # 0.1 Nucleated Red Blood Cells # 0.0 Medications Medication Current Medications Amlodipine Besylate (Norvasc) 10 mg DAILY PO Last administered on 02/13/19at 09:37; Admin Dose 10 MG; Start 02/04/19 at 09:00 Cyclosporine (Restasis) 1 drop Q12 BOTH EYES Last administered on 02/13/19at 09:37; Admin Dose 1 DROP; Start 02/03/19 at 21:00 Diclofenac Sodium (Voltaren 1% Gel) 2 gm QID TP Last administered on 02/13/19at 09:38; Admin Dose 2 GM; Start 02/03/19 at 17:00 Metoprolol Succinate (Toprol Xl) 50 mg DAILY PO Last administered on 02/13/19at 09:38; Admin Dose 50 MG; Start 02/04/19 at 09:00 Ranolazine (Ranexa) 500 mg Q12 PO Last administered on 02/13/19at 09:37; Admin Dose 500 MG; Start 02/03/19 at 21:00 Tiotropium [place] (Spiriva) 1 inh DAILY INH Last administered on 02/12/19at 12:47; Admin Dose 1 INH; Start 02/04/19 at 09:00 Levalbuterol (Xopenex Neb) 0.63 mg Q4H RESP THERAPY PRN HHN shortness of breath; Start 02/03/19 at 15:30 IV Flush (NS 3 ml) 3 ml PER PROTOCOL IV ; Start 02/03/19 at 15:30 Ondansetron HCl (Zofran Inj) 4 mg Q6H PRN IV NAUSEA/VOMITING; Start 02/03/19 at 15:30 Acetaminophen (Tylenol Tab) 650 mg Q6H PRN PO .PAIN 1-3 OR TEMP; Start 02/03/19 at 15:30 Docusate Sodium (Colace) 100 mg Q12H PRN PO .CONSTIPATION; Start 02/03/19 at 15:30 Magnesium Hydroxide (Milk Of Mag) 30 ml DAILY PRN PO .CONSTIPATION; Start 02/03/19 at 15:30 Tamsulosin HCl (Flomax) 0.4 mg BID PO Last administered on 02/13/19at 09:36; Admin Dose 0.4 MG; Start 02/04/19 at 09:00 Morphine Sulfate (morphine) 2 mg Q4H PRN IV SEVERE PAIN LEVEL 7-10 Last administered on 02/04/19at 18:35; Admin Dose 2 MG; Start 02/03/19 at 16:30 Arformoterol Tartrate (Brovana (Neb)) 2 ml BID RESP THERAPY INH Last administered on 02/13/19at 08:59; Admin Dose 2 ML; Start 02/03/19 at 22:00 Budesonide (Pulmicort (Neb)) 0.5 mg Q12H RESP THERAPY INH Last administered on 02/13/19 09:03; Admin Dose 0.5 MG; Start 02/03/19 at 22:00 Hydralazine HCl (Apresoline) 5 mg Q6H PRN IV ELEVATED BLOOD PRESSURE; Start 02/04/19 at 20:30 Nitroglycerin (Nitroglycerin (Sl Tab) 0.4 Mg) 1 tab Q5M PRN SL ANGINA Last administered on 02/05/19 10:29; Admin Dose 1 TAB; Start 02/05/19 at 10:30 Isosorbide Dinitrate (Isordil) 10 mg TID PO Last administered on 02/13/19 09:38; Admin Dose 10 MG; Start 02/05/19 at 21:00 Sucralfate (Carafate) 1 gm QID PO Last administered on 02/13/19 09:37; Admin Dose 1 GM; Start 02/08/19 at 13:30 Pantoprazole (Protonix Tab) 40 mg BID@0600,1800 PO Last administered on 02/13/19 06:33; Admin Dose 40 MG; Start 02/08/19 at 18:00 Ceftriaxone Sodium 50 ml @ 100 mls/hr Q24H IVPB Last administered on 02/13/19 09:36; Admin Dose 100 MLS/HR; Start 02/10/19 at 10:00 ELISABET MELENDEZ MD Feb 13, 2019 12:58
[2019-02-13] MEDS ORDERED: FAMOTIDINE 20 MG TAB PO SCH (21:00)
[2019-02-14] VITALS (10 sets, daily range): BP systolic 97–144; BP diastolic 53–74; PULSE 64–86; RESP 16–20
[2019-02-14] MEDS: PANTOPRAZOLE (EC) 40 MG TAB PO SCH ×2 (06:55→17:54)
[2019-02-14] MEDS: BUDESONIDE (NEB) 0.5MG/2ML AMP INH SCH ×2 (07:47→20:25)
[2019-02-14] MEDS: ARFORMOTEROL TARTRATE 15MCG/2 ML AMP INH SCH ×2 (08:02→20:00)
[2019-02-14] MEDS: SUCRALFATE 1 GM TAB PO SCH ×4 (09:00→20:25)
[2019-02-14] MEDS: RANOLAZINE (SR) 500 MG TAB PO SCH ×2 (09:00→20:25)
[2019-02-14] MEDS: TAMSULOSIN (SR) 0.4 MG CAP PO SCH ×2 (09:00→20:24)
[2019-02-14] MEDS: TIOTROPIUM 18 MCG CAPSULE INHA DEV INH SCH (09:00)
[2019-02-14] MEDS: CEFTRIAXONE 1 GM/50 ML (PMX) 50 ML IVPB SCH (09:40)
[2019-02-14] MEDS: METOPROLOL (XL) 50 MG TAB PO SCH (09:43)
[2019-02-14] MEDS: ISOSORBIDE DINITRATE 10 MG TAB PO SCH ×3 (09:43→20:25)
[2019-02-14] MEDS: AMLODIPINE 10 MG TAB PO SCH (09:43)
[2019-02-14] MEDS: DICLOFENAC SODIUM 1% GEL 100 GM TUBE TP SCH ×4 (09:46→20:25)
--- NOTE | 2019-02-14 09:51 | PN ---
DATE: 02/14/2019 SUBJECTIVE: Nausea, vomiting. The patient is stable, no events overnight. OBJECTIVE: VITAL SIGNS: Blood pressure is 144/73, respiratory rate 20, pulse 86, temperature 97.6. HEENT: Head is normocephalic. NECK: Supple. HEART: Regular rate. LUNGS: Show diminished breath sounds at the base. ABDOMEN: Soft, nontender to palpation without rebound or guarding. EXTREMITIES: Negative for clubbing, cyanosis, no edema. DERMATOLOGIC: No rashes. MUSCULOSKELETAL: No joint effusion. NEUROLOGIC: No change in exam. MEDICATIONS: The patient's medications have been reviewed. LABORATORY DATA: The laboratory data has been reviewed. IMAGING STUDIES: The imaging studies have been reviewed. ASSESSMENT AND PLAN: 1. Nonoliguric acute kidney injury with previous baseline creatinine 2.0 mg/dL. Etiology of MARTHA is . Renal function is improved, currently at baseline. Continue treatment plan. 2. Urinary retention, obstructive uropathy, improved after Emerson catheter placement, continue. 3. Anemia secondary to peptic ulcer disease. The patient is status post multiple EGDs. Continue to monitor hemoglobin and hematocrit levels. Continue proton pump inhibitor. 4. Mineral bone disorder. Monitor calcium and phosphorus levels. 5. Sepsis. 6. History of COPD. 7. Hypertension. Continue current blood pressure regimen. 9. History of heart failure, currently compensated. Continue current meds. 10. History of peripheral vascular disease. 11. Elevated troponin. Likely non-STEMI, type 2. Continue to monitor. Follow up with cardiology. Dictated By: HECTOR BERMUDEZ DO NR/NTS Conf#: [id number] DID#: [id number] CC: JAE DURAN MD; ELISABET MARCANO MD; ELISABET MELENDEZ MD;*EndCC*
--- NOTE | 2019-02-14 10:53 | PN ---
Date/Time of Note Date/Time of Note DATE: 02/14/19 TIME: 10:51 Assessment/Plan VTE Prophylaxis Risk score (from Ns)>0 risk: 6 SCD applied (from Ns): Yes Pharmacological prophylaxis: NA/contraindicated Pharm contraindication: bleeding Lines/Catheters IV Catheter Type (from Nrsg): Peripheral IV Urinary Cath still in place: Yes Reason Cath still needed: skin wounds contaminated by urine Assessment/Plan Assessment/Plan 83 yo M with PMH COPD, chronic kidney disease, peripheral artery disease, cardiomyopathy with EF 40-45%, and systolic congestive heart failure admitted for chest pain, GI bleed. 1. Acute blood loss anemia - EGD 02/06 showed bleeding duodenal ulcer, now clipped. - Repeat EGD + colonoscopy + push enteroscopy on 02/12 not showing active bleed (done after patient had episode of melena) - Continue to watch closely for more GI bleed. 2. Acute toxic encephalopathy - on antibiotics for UTI. May be secondary to aricept being d/c but family adamant about medication not being restarted 3. MARTHA on CKD - most likely secondary to hemodynamics - mcrae in place - Nephrology consultation appreciated. - avoid nephrotoxic agents 4. Acute chest pain- resolved - most likely GI related - Cardiology on board and appreciate input - trop slightly elevated and most likely secondary to type 2 demand - recent ECHO from 10/2018 reveals EF 40-45% 5. Peptic ulcer disease, Duodenal ulcers - GI consultation appreciated and will continue on PPI and octreotide - started on Carafate 6. BPH - on flomax 7. COPD - continue O2 and neb tx - no exacerbation sx noted 8. HTN - BP stable - continue home medications and adjust as needed 9. PAD - stable - seen by Dr. Waite in the past 10. Systolic heart failure - elevated BNP noted but does not appear overloaded - CXR negative for pulmonary congestion and no peripheral edema appreciated 11. Disposition - Hgb stable for 3 days. If no drop over next few days can likely discharge. Result Diagram: 02/14/19 0900 02/14/19 0505 Subjective 24 Hr Interval Summary Free Text/Dictation Overall patient doing well. No acute overnight events. Exam/Review of Systems Exam Vitals Vital Signs Date Temp Pulse Resp B/P (MAP) Pulse Ox O2 O2 Flow FiO2 Time Delivery Rate 02/14/19 Nasal 3.0 09:30 Cannula 02/14/19 83 09:19 02/14/19 18 92 07:49 02/14/19 97.6 144/73 07:18 (96) 02/11/19 21 09:24 Intake and Output 02/13/19 02/13/19 02/14/19 1515:00 23:00 07:00 IntakeIntake Total 600 ml 300 ml OutputOutput Total 600 ml 900 ml BalanceBalance 0 ml -600 ml Exam General: Frail appearing elderly Amharic speaking man Chest: nontender CVS: S1, S2, regular rate and rhythm, no murmurs Lungs: Diminished breath sounds at bases. no wheezing appreciated Abd: soft, nontender, nondistended. no rebound or guarding. bowel sounds present diffusely Ext: moving all extremities. no cyanosis, clubbing, or edema Skin: no rashes or lesions appreciated Results Results 24hrs Laboratory Tests Test 02/14/19 05:05 02/14/19 09:00 Sodium Level 141 Potassium Level 3.9 Chloride Level 112 H Carbon Dioxide Level 26 Anion Gap 3 L Blood Urea Nitrogen 34 #H Creatinine 1.96 H Glucose Level 83 Calcium Level 7.7 L Phosphorus Level 3.3 Magnesium Level 1.8 Albumin 2.2 L White Blood Count 9.5 Red Blood Count 3.33 L Hemoglobin 9.4 L Hematocrit 29.5 L Mean Corpuscular Volume 88.6 Mean Corpuscular Hemoglobin 28.2 L Mean Corpuscular Hemoglobin Concent 31.9 L Red Cell Distribution Width 17.9 H Platelet Count 278 Mean Platelet Volume 9.5 Immature Granulocytes % 1.400 H Neutrophils % 75.0 Lymphocytes % 13.6 L Monocytes % 7.4 Eosinophils % 2.3 Basophils % 0.3 Nucleated Red Blood Cells % 0.0 Immature Granulocytes # 0.130 H Neutrophils # 7.1 Lymphocytes # 1.3 Monocytes # 0.7 Eosinophils # 0.2 Basophils # 0.0 Nucleated Red Blood Cells # 0.0 Medications Medication Current Medications Amlodipine Besylate (Norvasc) 10 mg DAILY PO Last administered on 02/14/19at 09:43; Admin Dose 10 MG; Start 02/04/19 at 09:00 Cyclosporine (Restasis) 1 drop Q12 BOTH EYES Last administered on 02/13/19at 21:29; Admin Dose 1 DROP; Start 02/03/19 at 21:00 Diclofenac Sodium (Voltaren 1% Gel) 2 gm QID TP Last administered on 02/14/19at 09:46; Admin Dose 2 GM; Start 02/03/19 at 17:00 Metoprolol Succinate (Toprol Xl) 50 mg DAILY PO Last administered on 02/14/19at 09:43; Admin Dose 50 MG; Start 02/04/19 at 09:00 Ranolazine (Ranexa) 500 mg Q12 PO Last administered on 02/13/19at 21:27; Admin Dose 500 MG; Start 02/03/19 at 21:00 Tiotropium [place] (Spiriva) 1 inh DAILY INH Last administered on 02/12/19at 12:47; Admin Dose 1 INH; Start 02/04/19 at 09:00 Levalbuterol (Xopenex Neb) 0.63 mg Q4H RESP THERAPY PRN HHN shortness of breath; Start 02/03/19 at 15:30 IV Flush (NS 3 ml) 3 ml PER PROTOCOL IV ; Start 02/03/19 at 15:30 Ondansetron HCl (Zofran Inj) 4 mg Q6H PRN IV NAUSEA/VOMITING; Start 02/03/19 at 15:30 Acetaminophen (Tylenol Tab) 650 mg Q6H PRN PO .PAIN 1-3 OR TEMP; Start 02/03/19 at 15:30 Docusate Sodium (Colace) 100 mg Q12H PRN PO .CONSTIPATION; Start 02/03/19 at 15:30 Magnesium Hydroxide (Milk Of Mag) 30 ml DAILY PRN PO .CONSTIPATION; Start 02/03/19 at 15:30 Tamsulosin HCl (Flomax) 0.4 mg BID PO Last administered on 02/13/19at 21:29; Admin Dose 0.4 MG; Start 02/04/19 at 09:00 Morphine Sulfate (morphine) 2 mg Q4H PRN IV SEVERE PAIN LEVEL 7-10 Last administered on 02/04/19at 18:35; Admin Dose 2 MG; Start 02/03/19 at 16:30 Arformoterol Tartrate (Brovana (Neb)) 2 ml BID RESP THERAPY INH Last administered on 02/13/19at 20:23; Admin Dose 2 ML; Start 02/03/19 at 22:00 Budesonide (Pulmicort (Neb)) 0.5 mg Q12H RESP THERAPY INH Last administered on 02/14/19 07:47; Admin Dose 0.5 MG; Start 02/03/19 at 22:00 Hydralazine HCl (Apresoline) 5 mg Q6H PRN IV ELEVATED BLOOD PRESSURE; Start 02/04/19 at 20:30 Nitroglycerin (Nitroglycerin (Sl Tab) 0.4 Mg) 1 tab Q5M PRN SL ANGINA Last administered on 02/05/19 10:29; Admin Dose 1 TAB; Start 02/05/19 at 10:30 Isosorbide Dinitrate (Isordil) 10 mg TID PO Last administered on 02/14/19at 09:43; Admin Dose 10 MG; Start 02/05/19 at 21:00 Sucralfate (Carafate) 1 gm QID PO Last administered on 02/13/19 21:29; Admin Dose 1 GM; Start 02/08/19 at 13:30 Pantoprazole (Protonix Tab) 40 mg BID@0600,1800 PO Last administered on 02/14/19at 06:55; Admin Dose 40 MG; Start 02/08/19 at 18:00 Ceftriaxone Sodium 50 ml @ 100 mls/hr Q24H IVPB Last administered on 02/14/19at 09:40; Admin Dose 100 MLS/HR; Start 02/10/19 at 10:00 ELISABET MELENDEZ MD Feb 14, 2019 10:53
--- NOTE | 2019-02-14 11:04 | CONS ---
Assessment/Plan Assessment/Plan Hospital Course (Demo Recall) IMP: 1.Chest pain-minimal positive troponin in the setting of renal failure and severe anemia. Likely type 2 demand infarct. NO CP on medical therapy at this time. Had recurrent increase in setting of acute drop in hemoglobin/GIB and now downtrending s/p transfusion 2.Cardiomyopathy-EF 40-45% by echo 11/04/18 3.anemia-s/p transfusion and repeat endoscopy without findings of acute ongoing bleeding 4.renal failure-acute on chronic 5.PAD 6. Duodenal ulcer by endoscopy this admit on PPI/sucralfate Recc: -Tele -trend cardiac enzymes which are decreasing s/p transfusion -Contniue BB/norvasc/ranexa/isordil -transfuse PRBC's as necesssary -Continue PPI/H2 cynthia/sucralfate/octreotide -Will continue to hold asa at this time given findings of deodenal ulcer -Continue ranexa/iosrdil Consultation Date/Type/Reason Admit Date/Time Feb 03, 2019 at 14:25 Initial Consult Date 02/05/19 Type of Consult Cardiology Reason for Consultation Nstemi Requesting Provider: JAE DURAN MD Date/Time of Note DATE: 02/14/19 TIME: 11:02 Exam/Review of Systems Vital Signs Vitals Vital Signs Date Temp Pulse Resp B/P (MAP) Pulse Ox O2 O2 Flow FiO2 Time Delivery Rate 02/14/19 Nasal 3.0 09:30 Cannula 02/14/19 83 09:19 02/14/19 18 92 07:49 02/14/19 97.6 144/73 07:18 (96) 02/11/19 21 09:24 Intake and Output 02/13/19 02/13/19 02/14/19 1515:00 23:00 07:00 IntakeIntake Total 600 ml 300 ml OutputOutput Total 600 ml 900 ml BalanceBalance 0 ml -600 ml Exam Exam Review of Systems: CONSTITUTIONAL: No fevers, chills. PULMONARY: No sob CARDIOVASCULAR: denies chest pain GASTROINTESTINAL: No nausea/vomiting. GENITOURINARY: No hematuria/dysuria. MUSCULOSKELETAL: No myagias/arthalgias. PSYCHIATRIC: The patient denies depression. NEUROLOGIC: No weakness Constitutional: alert Psych: no complaints Head: normocephalic ENMT: mucosa pink and moist Neck: supple, jvd (9 cm water) Respiratory: diminished breath sounds (at bases/B) Cardiovascular: regular rate and rhythm Gastrointestinal: soft, non-tender Musculoskeletal: muscle weakness (gneralized) Extremities: edema (none) Neurological: other (No focal deficits) Labs Result Diagram: 02/14/19 0900 02/14/19 0505 Results 24hrs Laboratory Tests Test 02/14/19 05:05 02/14/19 09:00 Sodium Level 141 Potassium Level 3.9 Chloride Level 112 H Carbon Dioxide Level 26 Anion Gap 3 L Blood Urea Nitrogen 34 #H Creatinine 1.96 H Glucose Level 83 Calcium Level 7.7 L Phosphorus Level 3.3 Magnesium Level 1.8 Albumin 2.2 L White Blood Count 9.5 Red Blood Count 3.33 L Hemoglobin 9.4 L Hematocrit 29.5 L Mean Corpuscular Volume 88.6 Mean Corpuscular Hemoglobin 28.2 L Mean Corpuscular Hemoglobin Concent 31.9 L Red Cell Distribution Width 17.9 H Platelet Count 278 Mean Platelet Volume 9.5 Immature Granulocytes % 1.400 H Neutrophils % 75.0 Lymphocytes % 13.6 L Monocytes % 7.4 Eosinophils % 2.3 Basophils % 0.3 Nucleated Red Blood Cells % 0.0 Immature Granulocytes # 0.130 H Neutrophils # 7.1 Lymphocytes # 1.3 Monocytes # 0.7 Eosinophils # 0.2 Basophils # 0.0 Nucleated Red Blood Cells # 0.0 Medications Medications Current Medications Amlodipine Besylate (Norvasc) 10 mg DAILY PO Last administered on 02/14/19 09:43; Admin Dose 10 MG; Start 02/04/19 at 09:00 Cyclosporine (Restasis) 1 drop Q12 BOTH EYES Last administered on 02/13/19 21:29; Admin Dose 1 DROP; Start 02/03/19 at 21:00 Diclofenac Sodium (Voltaren 1% Gel) 2 gm QID TP Last administered on 02/14/19 09:46; Admin Dose 2 GM; Start 02/03/19 at 17:00 Metoprolol Succinate (Toprol Xl) 50 mg DAILY PO Last administered on 02/14/19 09:43; Admin Dose 50 MG; Start 02/04/19 at 09:00 Ranolazine (Ranexa) 500 mg Q12 PO Last administered on 02/13/19 21:27; Admin Dose 500 MG; Start 02/03/19 at 21:00 Tiotropium [place] (Spiriva) 1 inh DAILY INH Last administered on 02/12/19 12:47; Admin Dose 1 INH; Start 02/04/19 at 09:00 Levalbuterol (Xopenex Neb) 0.63 mg Q4H RESP THERAPY PRN HHN shortness of breath; Start 02/03/19 at 15:30 IV Flush (NS 3 ml) 3 ml PER PROTOCOL IV ; Start 02/03/19 at 15:30 Ondansetron HCl (Zofran Inj) 4 mg Q6H PRN IV NAUSEA/VOMITING; Start 02/03/19 at 15:30 Acetaminophen (Tylenol Tab) 650 mg Q6H PRN PO .PAIN 1-3 OR TEMP; Start 02/03/19 at 15:30 Docusate Sodium (Colace) 100 mg Q12H PRN PO .CONSTIPATION; Start 02/03/19 at 15:30 Magnesium Hydroxide (Milk Of Mag) 30 ml DAILY PRN PO .CONSTIPATION; Start 02/03/19 at 15:30 Tamsulosin HCl (Flomax) 0.4 mg BID PO Last administered on 02/13/19 21:29; Admin Dose 0.4 MG; Start 02/04/19 at 09:00 Morphine Sulfate (morphine) 2 mg Q4H PRN IV SEVERE PAIN LEVEL 7-10 Last administered on 02/04/19 18:35; Admin Dose 2 MG; Start 02/03/19 at 16:30 Arformoterol Tartrate (Brovana (Neb)) 2 ml BID RESP THERAPY INH Last administered on 02/13/19 20:23; Admin Dose 2 ML; Start 02/03/19 at 22:00 Budesonide (Pulmicort (Neb)) 0.5 mg Q12H RESP THERAPY INH Last administered on 02/14/19 07:47; Admin Dose 0.5 MG; Start 02/03/19 at 22:00 Hydralazine HCl (Apresoline) 5 mg Q6H PRN IV ELEVATED BLOOD PRESSURE; Start 02/04/19 at 20:30 Nitroglycerin (Nitroglycerin (Sl Tab) 0.4 Mg) 1 tab Q5M PRN SL ANGINA Last administered on 6/12/19at 10:29; Admin Dose 1 TAB; Start 02/05/19 at 10:30 Isosorbide Dinitrate (Isordil) 10 mg TID PO Last administered on 02/14/19 09:43; Admin Dose 10 MG; Start 02/05/19 at 21:00 Sucralfate (Carafate) 1 gm QID PO Last administered on 02/13/19at 21:29; Admin Dose 1 GM; Start 02/08/19 at 13:30 Pantoprazole (Protonix Tab) 40 mg BID@0600,1800 PO Last administered on 02/14/19at 06:55; Admin Dose 40 MG; Start 02/08/19 at 18:00 Ceftriaxone Sodium 50 ml @ 100 mls/hr Q24H IVPB Last administered on 02/14/19at 09:40; Admin Dose 100 MLS/HR; Start 02/10/19 at 10:00 ELISABET MARCANO Feb 14, 2019 11:04
[2019-02-14] MEDS: CYCLOSPORINE 0.05% OPH DROPERETTE BOTH EYES SCH ×2 (13:35→20:24)
--- NOTE | 2019-02-14 17:49 | PN ---
Date/Time of Note Date/Time of Note DATE: 02/14/19 TIME: 17:37 Assessment/Plan VTE Prophylaxis Risk score (from Ns)>0 risk: 4 SCD applied (from Ns): No SCD contraindicated: low risk/ambulating Pharmacological prophylaxis: NA/contraindicated Pharm contraindication: bleeding Lines/Catheters [facility] Peripheral IV Urinary Cath still in place: Yes Reason Cath still needed: urinary retention Assessment/Plan Assessment/Plan Assessment: Acute on chronic anemia with reported dark stool EGD 02/06/2019 10 mm post bulbar duodenal ulceration with visible vessel. Endo Clip applied . 10 mm clean base duodenal ulcer. Moderate gastritis rule out H. pylori infection, biopsies obtained. Severe erosive esophagitis. Hiatal hernia Colonoscopy 02/06/19 -Poor prep for colonoscopy- Precludes adequate examination 02/12/19 colonoscopy 7 mm polyp in the proximal ascending colon. Snare and retrieved 10 mm pedunculated polyp in the sigmoid colon. Snared and retrieved. Evidence of diluted blood in the entire colon. No bleeding lesion is identified. Terminal ileum show small amounts of diluted blood with no lesions. Moderate-sized internal hemorrhoids are present otherwise the mucosa of all segments of the colon appears within normal limits. It was decided to proceed with emergent reevaluation of the upper GI tract including push enteroscopy 02/12/19 enteroscopy Moderate distal esophagitis Previously Endo Clip duodenal ulcer with no evidence of rebleeding. Additionally duodenal ulcer almost completely healed. Enteroscopy to the mid jejunum with no bleeding lesions identified Acute chest pain-being followed by cardiology Right lower lobe pneumonia-on antibiotics MARTHA on CKD Systolic heart failure- appears compensated COPD Hypertension Plan: CT enterography Consider capsule endoscopy as an outpatient Patient seen in collaboration with Dr. Knott Subjective: Sitter at bedside. Hemoglobin is trending up at 9.3 today. Patient states his stool looks black. Will order CT enterography to rule out the bleeding in the small bowel. PHYSICAL EXAMINATION: GENERAL: Well developed, well nourished, alert & oriented,sitter at bedside SKIN: No lesions. HEAD: Normocephalic, atraumatic, no tenderness. EYES: Pupils equal reactive to light and accommodation, no discharge. EARS/NOSE AND THROAT: Ears normal, nose normal, oropharynx normal, oral membranes well hydrated without lesions. NECK: Supple, no masses, thyroid normal. CHEST: Inspection within normal limits. CARDIOVASCULAR: Heart: Regular rate and rhythm RESPIRATORY: Lungs clear to auscultation. GASTROINTESTINAL AND LIVER: Abdomen: Soft, non tenderness, non-distended, no hernias, no rebound tenderness, normoactive bowel sounds. Rectal: Deferred. GENITOURINARY: Male genitalia within normal limits. Emerson catheter in place EXTREMITIES: No cyanosis, clubbing or edema. Result Diagram: 02/14/19 0900 02/14/19 0505 Results 24hrs Laboratory Tests Test 02/14/19 05:05 02/14/19 09:00 Sodium Level 141 Potassium Level 3.9 Chloride Level 112 H Carbon Dioxide Level 26 Anion Gap 3 L Blood Urea Nitrogen 34 #H Creatinine 1.96 H Glucose Level 83 Calcium Level 7.7 L Phosphorus Level 3.3 Magnesium Level 1.8 Albumin 2.2 L White Blood Count 9.5 Red Blood Count 3.33 L Hemoglobin 9.4 L Hematocrit 29.5 L Mean Corpuscular Volume 88.6 Mean Corpuscular Hemoglobin 28.2 L Mean Corpuscular Hemoglobin Concent 31.9 L Red Cell Distribution Width 17.9 H Platelet Count 278 Mean Platelet Volume 9.5 Immature Granulocytes % 1.400 H Neutrophils % 75.0 Lymphocytes % 13.6 L Monocytes % 7.4 Eosinophils % 2.3 Basophils % 0.3 Nucleated Red Blood Cells % 0.0 Immature Granulocytes # 0.130 H Neutrophils # 7.1 Lymphocytes # 1.3 Monocytes # 0.7 Eosinophils # 0.2 Basophils # 0.0 Nucleated Red Blood Cells # 0.0 CC: MONICA KNOTT MD ; Exam/Review of Systems Exam Vitals Vital Signs Date Temp Pulse Resp B/P (MAP) Pulse Ox O2 O2 Flow FiO2 Time Delivery Rate 02/14/19 81 16:34 02/14/19 98.0 16 124/74 92 15:41 (91) 02/14/19 Nasal 3.0 09:30 Cannula 02/11/19 09:24 Intake and Output 02/13/19 02/13/19 02/14/19 1515:00 23:00 07:00 IntakeIntake Total 600 ml 300 ml OutputOutput Total 600 ml 900 ml BalanceBalance 0 ml -600 ml Results Results 24hrs Laboratory Tests Test 02/14/19 05:05 02/14/19 09:00 Sodium Level 141 Potassium Level 3.9 Chloride Level 112 H Carbon Dioxide Level 26 Anion Gap 3 L Blood Urea Nitrogen 34 #H Creatinine 1.96 H Glucose Level 83 Calcium Level 7.7 L Phosphorus Level 3.3 Magnesium Level 1.8 Albumin 2.2 L White Blood Count 9.5 Red Blood Count 3.33 L Hemoglobin 9.4 L Hematocrit 29.5 L Mean Corpuscular Volume 88.6 Mean Corpuscular Hemoglobin 28.2 L Mean Corpuscular Hemoglobin Concent 31.9 L Red Cell Distribution Width 17.9 H Platelet Count 278 Mean Platelet Volume 9.5 Immature Granulocytes % 1.400 H Neutrophils % 75.0 Lymphocytes % 13.6 L Monocytes % 7.4 Eosinophils % 2.3 Basophils % 0.3 Nucleated Red Blood Cells % 0.0 Immature Granulocytes # 0.130 H Neutrophils # 7.1 Lymphocytes # 1.3 Monocytes # 0.7 Eosinophils # 0.2 Basophils # 0.0 Nucleated Red Blood Cells # 0.0 Medications Medication Current Medications Amlodipine Besylate (Norvasc) 10 mg DAILY PO Last administered on 02/14/19 09: 43; Admin Dose 10 MG; Start 02/04/19 at 09:00 Cyclosporine (Restasis) 1 drop Q12 BOTH EYES Last administered on 02/14/19 13:35; Admin Dose 1 DROP; Start 02/03/19 at 21:00 Diclofenac Sodium (Voltaren 1% Gel) 2 gm QID TP Last administered on 02/14/19 09:46; Admin Dose 2 GM; Start 02/03/19 at 17:00 Metoprolol Succinate (Toprol Xl) 50 mg DAILY PO Last administered on 02/14/19 09:43; Admin Dose 50 MG; Start 02/04/19 at 09:00 Ranolazine (Ranexa) 500 mg Q12 PO Last administered on 02/13/19 21:27; Admin Dose 500 MG; Start 02/03/19 at 21:00 Tiotropium [place] (Spiriva) 1 inh DAILY INH Last administered on 02/12/19at 12:47; Admin Dose 1 INH; Start 02/04/19 at 09:00 Levalbuterol (Xopenex Neb) 0.63 mg Q4H RESP THERAPY PRN HHN shortness of breath; Start 02/03/19 at 15:30 IV Flush (NS 3 ml) 3 ml PER PROTOCOL IV ; Start 02/03/19 at 15:30 Ondansetron HCl (Zofran Inj) 4 mg Q6H PRN IV NAUSEA/VOMITING; Start 02/03/19 at 15:30 Acetaminophen (Tylenol Tab) 650 mg Q6H PRN PO .PAIN 1-3 OR TEMP; Start 02/03/19 at 15:30 Docusate Sodium (Colace) 100 mg Q12H PRN PO .CONSTIPATION; Start 02/03/19 at 1 5:30 Magnesium Hydroxide (Milk Of Mag) 30 ml DAILY PRN PO .CONSTIPATION; Start 02/03/19 at 15:30 Tamsulosin HCl (Flomax) 0.4 mg BID PO Last administered on 02/13/19at 21:29; Admin Dose 0.4 MG; Start 02/04/19 at 09:00 Morphine Sulfate (morphine) 2 mg Q4H PRN IV SEVERE PAIN LEVEL 7-10 Last administered on 02/04/19at 18:35; Admin Dose 2 MG; Start 02/03/19 at 16:30 Arformoterol Tartrate (Brovana (Neb)) 2 ml BID RESP THERAPY INH Last administered on 02/13/19at 20:23; Admin Dose 2 ML; Start 02/03/19 at 22:00 Budesonide (Pulmicort (Neb)) 0.5 mg Q12H RESP THERAPY INH Last administered on 02/14/19at 07:47; Admin Dose 0.5 MG; Start 02/03/19 at 22:00 Hydralazine HCl (Apresoline) 5 mg Q6H PRN IV ELEVATED BLOOD PRESSURE; Start 02/04/19 at 20:30 Nitroglycerin (Nitroglycerin (Sl Tab) 0.4 Mg) 1 tab Q5M PRN SL ANGINA Last administered on 02/05/19at 10:29; Admin Dose 1 TAB; Start 02/05/19 at 10:30 Isosorbide Dinitrate (Isordil) 10 mg TID PO Last administered on 02/14/19at 09:43; Admin Dose 10 MG; Start 02/05/19 at 21:00 Sucralfate (Carafate) 1 gm QID PO Last administered on 02/14/19at 13:35; Admin Dose 1 GM; Start 02/08/19 at 13:30 Pantoprazole (Protonix Tab) 40 mg BID@0600,1800 PO Last administered on 02/14/19at 06:55; Admin Dose 40 MG; Start 02/08/19 at 18:00 Ceftriaxone Sodium 50 ml @ 100 mls/hr Q24H IVPB Last administered on 02/14/19at 09:40; Admin Dose 100 MLS/HR; Start 02/10/19 at 10:00 IJEOMA HUMPHREYS NP Feb 14, 2019 17:48
[2019-02-15] VITALS (10 sets, daily range): BP systolic 111–149; BP diastolic 68–77; PULSE 71–88; RESP 18–19
[2019-02-15] MEDS: PANTOPRAZOLE (EC) 40 MG TAB PO SCH ×2 (05:53→17:58)
[2019-02-15] MEDS: ARFORMOTEROL TARTRATE 15MCG/2 ML AMP INH SCH ×2 (08:57→19:37)
[2019-02-15] MEDS: BUDESONIDE (NEB) 0.5MG/2ML AMP INH SCH ×2 (08:57→19:45)
[2019-02-15] MEDS: TIOTROPIUM 18 MCG CAPSULE INHA DEV INH SCH (09:00)
[2019-02-15] MEDS: RANOLAZINE (SR) 500 MG TAB PO SCH ×2 (09:00→21:29)
[2019-02-15] MEDS: SUCRALFATE 1 GM TAB PO SCH ×4 (09:00→21:30)
[2019-02-15] MEDS: TAMSULOSIN (SR) 0.4 MG CAP PO SCH ×2 (09:00→21:28)
[2019-02-15] MEDS: DICLOFENAC SODIUM 1% GEL 100 GM TUBE TP SCH ×4 (09:00→21:00)
[2019-02-15] MEDS: CEFTRIAXONE 1 GM/50 ML (PMX) 50 ML IVPB SCH (09:37)
[2019-02-15] MEDS: CYCLOSPORINE 0.05% OPH DROPERETTE BOTH EYES SCH ×2 (09:37→21:00)
[2019-02-15] MEDS: ISOSORBIDE DINITRATE 10 MG TAB PO SCH ×3 (09:38→21:30)
[2019-02-15] MEDS: AMLODIPINE 10 MG TAB PO SCH (09:38)
[2019-02-15] MEDS: METOPROLOL (XL) 50 MG TAB PO SCH (09:38)
--- NOTE | 2019-02-15 10:15 | CONS ---
Consult Date/Type/Reason Admit Date/Time Feb 03, 2019 at 14:25 Initial Consult Date 02/05/19 Requesting Provider: JAE DURAN MD Date/Time of Note DATE: 02/15/19 TIME: 10:13 Subjective no co. The patient is stable, no events overnight. sitter at bedside OBJECTIVE: HEENT: Head is normocephalic. NECK: Supple. HEART: Regular rate. LUNGS: Show diminished breath sounds at the base. ABDOMEN: Soft, nontender to palpation without rebound or guarding. EXTREMITIES: Negative for clubbing, cyanosis, no edema. DERMATOLOGIC: No rashes. MUSCULOSKELETAL: No joint effusion. NEUROLOGIC: No change in exam. MEDICATIONS: The patient's medications have been reviewed. Objective Vitals Vital Signs Date Temp Pulse Resp B/P (MAP) Pulse Ox O2 O2 Flow FiO2 Time Delivery Rate 02/15/19 78 20 96 Nasal 09:01 Cannula 02/15/19 97.8 146/75 07:14 (98) 02/15/19 3.0 02:11 02/11/19 21 09:24 Intake and Output 02/14/19 02/14/19 02/15/19 1515:00 23:00 07:00 IntakeIntake Total 1570 ml 240 ml OutputOutput Total 950 ml 400 ml BalanceBalance 620 ml -160 ml Results/Medications Result Diagram: 02/15/19 0450 02/15/19 0450 Results 24 hrs Laboratory Tests Test 02/15/19 04:50 White Blood Count 8.9 Red Blood Count 3.28 L Hemoglobin 9.4 L Hematocrit 28.9 L Mean Corpuscular Volume 88.1 Mean Corpuscular Hemoglobin 28.7 L Mean Corpuscular Hemoglobin Concent 32.5 Red Cell Distribution Width 17.6 H Platelet Count 270 Mean Platelet Volume 10.0 Immature Granulocytes % 1.000 H Neutrophils % 69.9 Lymphocytes % 15.9 Monocytes % 9.3 Eosinophils % 3.1 Basophils % 0.8 Nucleated Red Blood Cells % 0.0 Immature Granulocytes # 0.090 H Neutrophils # 6.2 Lymphocytes # 1.4 Monocytes # 0.8 Eosinophils # 0.3 Basophils # 0.1 Nucleated Red Blood Cells # 0.0 Sodium Level 143 Potassium Level 3.8 Chloride Level 109 Carbon Dioxide Level 28 Anion Gap 6 Blood Urea Nitrogen 24 H Creatinine 1.77 H Est Glomerular Filtrat Rate mL/min Glucose Level 91 Calcium Level 7.9 L Phosphorus Level 3.4 Magnesium Level 1.6 L Creatine Kinase 34 Creatine Kinase Index 3.7 Creatinine Kinase MB (Mass) 1.25 Troponin I 0.640 *H Home Meds Active Scripts Tiotropium [place]* (Spiriva*) 18 Mcg Cap.w.dev, 1 CAP INHALATION DAILY, #30 CAP 1 Refill Prov:MARC GLORIA 01/27/19 Reported Medications Naproxen* (Naproxen*) 500 Mg Tablet, 500 MG PO BID PRN for PAIN, TAB 01/20/19 Diclofenac Sodium* (Voltaren* Gel) 1% -100 Gm Gel, 2 GM TOP QID, #1 TUB 01/20/19 Budesonide-Formoterol Fumarate* (Symbicort*) 160-4.5 Hfa.aer.ad, 2 PUFF INHALATION BID, #1 EACH 01/20/19 Cyclosporine (RESTASIS) 1 Each Droperette, 1 DROP BOTH EYES Q12, #1 BOX 01/20/19 Ranolazine* (Ranexa*) 500 Mg Tab.sr.12h, 500 MG PO Q12, TAB 01/20/19 Tamsulosin Hcl* (Flomax*) 0.4 Mg Cap.er.24h, 0.4 MG PO DAILY, CAP 01/20/19 Linaclotide (LINZESS) 145 Mcg Capsule, 145 MCG PO DAILY, #30 CAP 01/20/19 Nebivolol Hcl* (Bystolic*) 10 Mg Tablet, 10 MG PO DAILY, #30 TAB 01/20/19 Omeprazole* (Omeprazole*) 20 Mg Capsule.dr, 20 MG PO DAILY, #30 CAP 01/20/19 Donepezil* (Aricept*) 5 Mg Tablet, 5 MG PO DAILY, TAB 01/20/19 Meloxicam* (Meloxicam*) 7.5 Mg Tablet, 7.5 MG PO DAILY, #30 TAB 01/20/19 Aspirin (Low Dose Aspirin) 81 Mg Tablet.dr, 81 MG PO DAILY, #30 TAB 01/20/19 Amlodipine Besylate* (Amlodipine Besylate*) 10 Mg Tablet, 10 MG PO DAILY, #30 TAB 01/20/19 Metoprolol Succinate* (Toprol XL*) 50 Mg Tab.er.24h, 50 MG PO DAILY, #30 TAB 01/20/19 Pentoxifylline* (Pentoxifylline*) 400 Mg Tablet.sa, 400 MG PO WITH MEALS, TAB 01/20/19 Medications Current Medications Amlodipine Besylate (Norvasc) 10 mg DAILY PO Last administered on 02/15/19 09:38; Admin Dose 10 MG; Start 02/04/19 at 09:00 Cyclosporine (Restasis) 1 drop Q12 BOTH EYES Last administered on 02/15/19 09:37; Admin Dose 1 DROP; Start 02/03/19 at 21:00 Diclofenac Sodium (Voltaren 1% Gel) 2 gm QID TP Last administered on 02/14/19 20:25; Admin Dose 2 GM; Start 02/03/19 at 17:00 Metoprolol Succinate (Toprol Xl) 50 mg DAILY PO Last administered on 02/15/19 09:38; Admin Dose 50 MG; Start 02/04/19 at 09:00 Ranolazine (Ranexa) 500 mg Q12 PO Last administered on 02/14/19 20:25; Admin Dose 500 MG; Start 02/03/19 at 21:00 Tiotropium [place] (Spiriva) 1 inh DAILY INH Last administered on 02/12/19 12:47; Admin Dose 1 INH; Start 02/04/19 at 09:00 Levalbuterol (Xopenex Neb) 0.63 mg Q4H RESP THERAPY PRN HHN shortness of breath; Start 02/03/19 at 15:30 IV Flush (NS 3 ml) 3 ml PER PROTOCOL IV ; Start 02/03/19 at 15:30 Ondansetron HCl (Zofran Inj) 4 mg Q6H PRN IV NAUSEA/VOMITING; Start 02/03/19 at 15:30 Acetaminophen (Tylenol Tab) 650 mg Q6H PRN PO .PAIN 1-3 OR TEMP; Start 02/03/19 at 15:30 Docusate Sodium (Colace) 100 mg Q12H PRN PO .CONSTIPATION; Start 02/03/19 at 15:30 Magnesium Hydroxide (Milk Of Mag) 30 ml DAILY PRN PO .CONSTIPATION; Start 02/03/19 at 15:30 Tamsulosin HCl (Flomax) 0.4 mg BID PO Last administered on 02/14/19at 20:24; Admin Dose 0.4 MG; Start 02/04/19 at 09:00 Morphine Sulfate (morphine) 2 mg Q4H PRN IV SEVERE PAIN LEVEL 7-10 Last administered on 02/04/19 18:35; Admin Dose 2 MG; Start 02/03/19 at 16:30 Arformoterol Tartrate (Brovana (Neb)) 2 ml BID RESP THERAPY INH Last administered on 02/15/19 08:57; Admin Dose 2 ML; Start 02/03/19 at 22:00 Budesonide (Pulmicort (Neb)) 0.5 mg Q12H RESP THERAPY INH Last administered on 02/15/19 08:57; Admin Dose 0.5 MG; Start 02/03/19 at 22:00 Hydralazine HCl (Apresoline) 5 mg Q6H PRN IV ELEVATED BLOOD PRESSURE; Start 02/04/19 at 20:30 Nitroglycerin (Nitroglycerin (Sl Tab) 0.4 Mg) 1 tab Q5M PRN SL ANGINA Last administered on 02/05/19 10:29; Admin Dose 1 TAB; Start 02/05/19 at 10:30 Isosorbide Dinitrate (Isordil) 10 mg TID PO Last administered on 02/15/19 09:38; Admin Dose 10 MG; Start 02/05/19 at 21:00 Sucralfate (Carafate) 1 gm QID PO Last administered on 02/14/19 20:25; Admin Dose 1 GM; Start 02/08/19 at 13:30 Pantoprazole (Protonix Tab) 40 mg BID@0600,1800 PO Last administered on 02/15/19 05:53; Admin Dose 40 MG; Start 02/08/19 at 18:00 Ceftriaxone Sodium 50 ml @ 100 mls/hr Q24H IVPB Last administered on 02/15/19 09:37; Admin Dose 100 MLS/HR; Start 02/10/19 at 10:00 Assessment/Plan Assessment/Plan (Daily) 1. Nonoliguric acute kidney injury with previous baseline creatinine 2.0 mg/dL. Etiology of MARTHA is likely hemodynamic Renal function is improved, currently at baseline. - watch for diuretic phase of martha. replace mag. 2. Urinary retention, obstructive uropathy, improved after Emerson catheter placement, continue. 3. Anemia secondary to peptic ulcer disease. The patient is status post multiple EGDs. Continue to monitor hemoglobin and hematocrit levels. Continue proton pump inhibitor. 4. Mineral bone disorder. Monitor calcium and phosphorus levels. 5. Sepsis. 6. History of COPD. 7. Hypertension. Continue current blood pressure regimen. 9. History of heart failure, currently compensated. Continue current meds. 10. History of peripheral vascular disease. 11. Elevated troponin. Likely non-STEMI, type 2. Continue to monitor. Follow up with cardiology. TRACY MARTINEZ MD Feb 15, 2019 10:15
[2019-02-15] MEDS ORDERED: MAGNESIUM SULFATE 2 GM/50 ML 50 ML IVPB ONE (10:30)
--- NOTE | 2019-02-15 11:39 | PN ---
Date/Time of Note Date/Time of Note DATE: 02/15/19 TIME: 11:37 Assessment/Plan VTE Prophylaxis Risk score (from Ns)>0 risk: 6 SCD applied (from Ns): No SCD contraindicated: other (scds) Pharmacological prophylaxis: other (scds) Lines/Catheters IV Catheter Type (from [facility]): [place] Urinary Cath still in place: Yes Reason Cath still needed: other (indicate) (monitor output) Assessment/Plan Hospital Course Assessment/Plan Assessment: Acute on chronic anemia with reported dark stool EGD 02/06/2019 10 mm post bulbar duodenal ulceration with visible vessel. Endo Clip applied. 10 mm clean base duodenal ulcer. Moderate gastritis rule out H. pylori infection, biopsies obtained. Severe erosive esophagitis. Hiatal hernia Colonoscopy 02/06/19 -Poor prep for colonoscopy- Precludes adequate examination 02/12/19 colonoscopy 7 mm polyp in the proximal ascending colon. Snare and retrieved 10 mm pedunculated polyp in the sigmoid colon. Snared and retrieved. Evidence of diluted blood in the entire colon. No bleeding lesion is identified. Terminal ileum show small amounts of diluted blood with no lesions. Moderate-sized internal hemorrhoids are present otherwise the mucosa of all segments of the colon appears within normal limits. It was decided to proceed with emergent reevaluation of the upper GI tract including push enteroscopy 02/12/19 enteroscopy Moderate distal esophagitis Previously Endo Clip duodenal ulcer with no evidence of rebleeding. Additionally duodenal ulcer almost completely healed. Enteroscopy to the mid jejunum with no bleeding lesions identified Acute chest pain-being followed by cardiology Right lower lobe pneumonia-on antibiotics MARTHA on CKD Systolic heart failure- appears compensated COPD Hypertension Plan: Cancel CT enterography- Cr 1.77 If evidence of re-recurrent bleeding consider nuclear medicine bleeding scan versus angiography. Recommend CT enterography prior to discharge if possible Capsule endoscopy as an outpatient D/c planning per hospitalist Patient seen in collaboration with Dr. Knott Subjective: Currently appears comfortable, son-in-law is at bedside. No overt signs of GI bleed. Hemoglobin is currently stable. Patient denies nausea/vomiting or abdominal pain. PHYSICAL EXAMINATION: GENERAL: Well developed, well nourished, alert & oriented,sitter at bedside SKIN: No lesions. HEAD: Normocephalic, atraumatic, no tenderness. EYES: Pupils equal reactive to light and accommodation, no discharge. EARS/NOSE AND THROAT: Ears normal, nose normal, oropharynx normal, oral m embranes well hydrated without lesions. NECK: Supple, no masses, thyroid normal. CHEST: Inspection within normal limits. CARDIOVASCULAR: Heart: Regular rate and rhythm RESPIRATORY: Lungs clear to auscultation. GASTROINTESTINAL AND LIVER: Abdomen: Soft, non tenderness, non-distended, no hernias, no rebound tenderness, normoactive bowel sounds. Rectal: Deferred. GENITOURINARY: Male genitalia within normal limits. Emerson catheter in place EXTREMITIES: No cyanosis, clubbing or edema. Result Diagram: 02/15/19 0450 02/15/19449 Results 24hrs Laboratory Tests Test 02/15/19 04:50 White Blood Count 8.9 Red Blood Count 3.28 L Hemoglobin 9.4 L Hematocrit 28.9 L Mean Corpuscular Volume 88.1 Mean Corpuscular Hemoglobin 28.7 L Mean Corpuscular Hemoglobin Concent 32.5 Red Cell Distribution Width 17.6 H Platelet Count 270 Mean Platelet Volume 10.0 Immature Granulocytes % 1.000 H Neutrophils % 69.9 Lymphocytes % 15.9 Monocytes % 9.3 Eosinophils % 3.1 Basophils % 0.8 Nucleated Red Blood Cells % 0.0 Immature Granulocytes # 0.090 H Neutrophils # 6.2 Lymphocytes # 1.4 Monocytes # 0.8 Eosinophils # 0.3 Basophils # 0.1 Nucleated Red Blood Cells # 0.0 Sodium Level 143 Potassium Level 3.8 Chloride Level 109 Carbon Dioxide Level 28 Anion Gap 6 Blood Urea Nitrogen 24 H Creatinine 1.77 H Est Glomerular Filtrat Rate mL/min Glucose Level 91 Calcium Level 7.9 L Phosphorus Level 3.4 Magnesium Level 1.6 L Creatine Kinase 34 Creatine Kinase Index 3.7 Creatinine Kinase MB (Mass) 1.25 Troponin I 0.640 *H Exam/Review of Systems Exam Vitals Vital Signs Date Temp Pulse Resp B/P (MAP) Pulse Ox O2 O2 Flow FiO2 Time Delivery Rate 02/15/19 98.1 79 18 131/68 93 11:06 (89) 02/15/19 Nasal 3.0 09:50 Cannula 02/11/19 21 09:24 Intake and Output 02/14/19 02/14/19 02/15/19 1414:59 22:59 06:59 IntakeIntake Total 1330 ml 480 ml OutputOutput Total 950 ml 400 ml BalanceBalance 380 ml 80 ml Results Results 24hrs Laboratory Tests Test 02/15/19 04:50 White Blood Count 8.9 Red Blood Count 3.28 L Hemoglobin 9.4 L Hematocrit 28.9 L Mean Corpuscular Volume 88.1 Mean Corpuscular Hemoglobin 28.7 L Mean Corpuscular Hemoglobin Concent 32.5 Red Cell Distribution Width 17.6 H Platelet Count 270 Mean Platelet Volume 10.0 Immature Granulocytes % 1.000 H Neutrophils % 69.9 Lymphocytes % 15.9 Monocytes % 9.3 Eosinophils % 3.1 Basophils % 0.8 Nucleated Red Blood Cells % 0.0 Immature Granulocytes # 0.090 H Neutrophils # 6.2 Lymphocytes # 1.4 Monocytes # 0.8 Eosinophils # 0.3 Basophils # 0.1 Nucleated Red Blood Cells # 0.0 Sodium Level 143 Potassium Level 3.8 Chloride Level 109 Carbon Dioxide Level 28 Anion Gap 6 Blood Urea Nitrogen 24 H Creatinine 1.77 H Est Glomerular Filtrat Rate mL/min Glucose Level 91 Calcium Level 7.9 L Phosphorus Level 3.4 Magnesium Level 1.6 L Creatine Kinase 34 Creatine Kinase Index 3.7 Creatinine Kinase MB (Mass) 1.25 Troponin I 0.640 *H Medications Medication Current Medications Amlodipine Besylate (Norvasc) 10 mg DAILY PO Last administered on 02/15/19 09:38; Admin Dose 10 MG; Start 02/04/19 at 09:00 Cyclosporine (Restasis) 1 drop Q12 BOTH EYES Last administered on 02/15/19 09:37; Admin Dose 1 DROP; Start 02/03/19 at 21:00 Diclofenac Sodium (Voltaren 1% Gel) 2 gm QID TP Last administered on 02/14/19 20:25; Admin Dose 2 GM; Start 02/03/19 at 17:00 Metoprolol Succinate (Toprol Xl) 50 mg DAILY PO Last administered on 02/15/19 09:38; Admin Dose 50 MG; Start 02/04/19 at 09:00 Ranolazine (Ranexa) 500 mg Q12 PO Last administered on 02/14/19 20:25; Admin Dose 500 MG; Start 02/03/19 at 21:00 Tiotropium [place] (Spiriva) 1 inh DAILY INH Last administered on 02/12/19at 12:47; Admin Dose 1 INH; Start 02/04/19 at 09:00 Levalbuterol (Xopenex Neb) 0.63 mg Q4H RESP THERAPY PRN HHN shortness of kat th; Start 02/03/19 at 15:30 IV Flush (NS 3 ml) 3 ml PER PROTOCOL IV ; Start 02/03/19 at 15:30 Ondansetron HCl (Zofran Inj) 4 mg Q6H PRN IV NAUSEA/VOMITING; Start 02/03/19 at 15:30 Acetaminophen (Tylenol Tab) 650 mg Q6H PRN PO .PAIN 1-3 OR TEMP; Start 02/03/19 at 15:30 Docusate Sodium (Colace) 100 mg Q12H PRN PO .CONSTIPATION; Start 02/03/19 at 15:30 Magnesium Hydroxide (Milk Of Mag) 30 ml DAILY PRN PO .CONSTIPATION; Start 02/03/19 at 15:30 Tamsulosin HCl (Flomax) 0.4 mg BID PO Last administered on 02/14/19 20:24; Admin Dose 0.4 MG; Start 02/04/19 at 09:00 Morphine Sulfate (morphine) 2 mg Q4H PRN IV SEVERE PAIN LEVEL 7-10 Last administered on 02/04/19 18:35; Admin Dose 2 MG; Start 02/03/19 at 16:30 Arformoterol Tartrate (Brovana (Neb)) 2 ml BID RESP THERAPY INH Last administered on 02/15/19 08:57; Admin Dose 2 ML; Start 02/03/19 at 22:00 Budesonide (Pulmicort (Neb)) 0.5 mg Q12H RESP THERAPY INH Last administered on 02/15/19 08:57; Admin Dose 0.5 MG; Start 02/03/19 at 22:00 Hydralazine HCl (Apresoline) 5 mg Q6H PRN IV ELEVATED BLOOD PRESSURE; Start 02/04/19 at 20:30 Nitroglycerin (Nitroglycerin (Sl Tab) 0.4 Mg) 1 tab Q5M PRN SL ANGINA Last administered on 02/05/19 10:29; Admin Dose 1 TAB; Start 02/05/19 at 10:30 Isosorbide Dinitrate (Isordil) 10 mg TID PO Last administered on 02/15/19 09:38; Admin Dose 10 MG; Start 02/05/19 at 21:00 Sucralfate (Carafate) 1 gm QID PO Last administered on 02/14/19at 20:25; Admin Dose 1 GM; Start 02/08/19 at 13:30 Pantoprazole (Protonix Tab) 40 mg BID@0600,1800 PO Last administered on 02/15/19at 05:53; Admin Dose 40 MG; Start 02/08/19 at 18:00 Ceftriaxone Sodium 50 ml @ 100 mls/hr Q24H IVPB Last administered on 02/15/19at 09:37; Admin Dose 100 MLS/HR; Start 02/10/19 at 10:00 Magnesium Sulfate 50 ml @ 25 mls/hr ONCE ONCE IVPB Last administered on 02/15/19at 10:29; Admin Dose 25 MLS/HR; Start 02/15/19 at 10:30; Stop 02/15/19 at 12:29 ISIDRO ARREDONDO Feb 15, 2019 11:39
--- NOTE | 2019-02-15 12:51 | CONS ---
Consult Date/Type/Reason Admit Date/Time Feb 03, 2019 at 14:25 Initial Consult Date 02/05/19 Requesting Provider: JAE DURAN MD Date/Time of Note DATE: 02/15/19 TIME: 12:49 Subjective NO acute events - pt looks more comfortable - H/H stable now. ROS: No fever, no chills, no nausea, no vomiting, no diarrhea/constipation No recent weight changes No chest pain, no PND, no orthopnea No dizziness, blurred vision No thirst, no heat or cold intolerance Objective Vitals Vital Signs Date Temp Pulse Resp B/P (MAP) Pulse Ox O2 O2 Flow FiO2 Time Delivery Rate 02/15/19 98.1 79 18 131/68 93 11:06 (89) 02/15/19 Nasal 3.0 09:50 Cannula 02/11/19 09:24 Intake and Output 02/14/19 02/14/19 02/15/19 1515:00 23:00 07:00 IntakeIntake Total 1570 ml 240 ml OutputOutput Total 950 ml 400 ml BalanceBalance 620 ml -160 ml Exam General: WN/WD/NAD, AOx 2-3 HEENT: Unicetric/atraumatic/EOMI (follow commands) NECK: JVD elevated, no thyromegaly Lymph: no lymphadenopathy HEART: regular with no S3, II/ systolic murmur at apex LUNGS: Coarse sounds ABD: soft, NT, ND, +BS : Intact Neuro: non focal SKIN: chronic changes EXT: trace edema Results/Medications Result Diagram: 02/15/19 0450 02/15/19 0450 Results 24 hrs Laboratory Tests Test 02/15/19 04:50 White Blood Count 8.9 Red Blood Count 3.28 L Hemoglobin 9.4 L Hematocrit 28.9 L Mean Corpuscular Volume 88.1 Mean Corpuscular Hemoglobin 28.7 L Mean Corpuscular Hemoglobin Concent 32.5 Red Cell Distribution Width 17.6 H Platelet Count 270 Mean Platelet Volume 10.0 Immature Granulocytes % 1.000 H Neutrophils % 69.9 Lymphocytes % 15.9 Monocytes % 9.3 Eosinophils % 3.1 Basophils % 0.8 Nucleated Red Blood Cells % 0.0 Immature Granulocytes # 0.090 H Neutrophils # 6.2 Lymphocytes # 1.4 Monocytes # 0.8 Eosinophils # 0.3 Basophils # 0.1 Nucleated Red Blood Cells # 0.0 Sodium Level 143 Potassium Level 3.8 Chloride Level 109 Carbon Dioxide Level 28 Anion Gap 6 Blood Urea Nitrogen 24 H Creatinine 1.77 H Est Glomerular Filtrat Rate mL/min Glucose Level 91 Calcium Level 7.9 L Phosphorus Level 3.4 Magnesium Level 1.6 L Creatine Kinase 34 Creatine Kinase Index 3.7 Creatinine Kinase MB (Mass) 1.25 Troponin I 0.640 *H Home Meds Active Scripts Tiotropium [place]* (Spiriva*) 18 Mcg Cap.w.dev, 1 CAP INHALATION DAILY, #30 CAP 1 Refill Prov:MARC GLORIA 01/27/19 Reported Medications Naproxen* (Naproxen*) 500 Mg Tablet, 500 MG PO BID PRN for PAIN, TAB 01/20/19 Diclofenac Sodium* (Voltaren* Gel) 1% -100 Gm Gel, 2 GM TOP QID, #1 TUB 01/20/19 Budesonide-Formoterol Fumarate* (Symbicort*) 160-4.5 Hfa.aer.ad, 2 PUFF INHALATION BID, #1 EACH 01/20/19 Cyclosporine (RESTASIS) 1 Each Droperette, 1 DROP BOTH EYES Q12, #1 BOX 01/20/19 Ranolazine* (Ranexa*) 500 Mg Tab.sr.12h, 500 MG PO Q12, TAB 01/20/19 Tamsulosin Hcl* (Flomax*) 0.4 Mg Cap.er.24h, 0.4 MG PO DAILY, CAP 01/20/19 Linaclotide (LINZESS) 145 Mcg Capsule, 145 MCG PO DAILY, #30 CAP 01/20/19 Nebivolol Hcl* (Bystolic*) 10 Mg Tablet, 10 MG PO DAILY, #30 TAB 01/20/19 Omeprazole* (Omeprazole*) 20 Mg Capsule.dr, 20 MG PO DAILY, #30 CAP 01/20/19 Donepezil* (Aricept*) 5 Mg Tablet, 5 MG PO DAILY, TAB 01/20/19 Meloxicam* (Meloxicam*) 7.5 Mg Tablet, 7.5 MG PO DAILY, #30 TAB 01/20/19 Aspirin (Low Dose Aspirin) 81 Mg Tablet.dr, 81 MG PO DAILY, #30 TAB 01/20/19 Amlodipine Besylate* (Amlodipine Besylate*) 10 Mg Tablet, 10 MG PO DAILY, #30 TAB 01/20/19 Metoprolol Succinate* (Toprol XL*) 50 Mg Tab.er.24h, 50 MG PO DAILY, #30 TAB 01/20/19 Pentoxifylline* (Pentoxifylline*) 400 Mg Tablet.sa, 400 MG PO WITH MEALS, TAB 01/20/19 Medications Current Medications Amlodipine Besylate (Norvasc) 10 mg DAILY PO Last administered on 02/15/19at 09:38; Admin Dose 10 MG; Start 02/04/19 at 09:00 Cyclosporine (Restasis) 1 drop Q12 BOTH EYES Last administered on 02/15/19at 09:37; Admin Dose 1 DROP; Start 02/03/19 at 21:00 Diclofenac Sodium (Voltaren 1% Gel) 2 gm QID TP Last administered on 02/14/19 20:25; Admin Dose 2 GM; Start 02/03/19 at 17:00 Metoprolol Succinate (Toprol Xl) 50 mg DAILY PO Last administered on 02/15/19at 09:38; Admin Dose 50 MG; Start 02/04/19 at 09:00 Ranolazine (Ranexa) 500 mg Q12 PO Last administered on 02/14/19at 20:25; Admin Dose 500 MG; Start 02/03/19 at 21:00 Tiotropium [place] (Spiriva) 1 inh DAILY INH Last administered on 02/12/19at 12:47; Admin Dose 1 INH; Start 02/04/19 at 09:00 Levalbuterol (Xopenex Neb) 0.63 mg Q4H RESP THERAPY PRN HHN shortness of breath; Start 02/03/19 at 15:30 IV Flush (NS 3 ml) 3 ml PER PROTOCOL IV ; Start 02/03/19 at 15:30 Ondansetron HCl (Zofran Inj) 4 mg Q6H PRN IV NAUSEA/VOMITING; Start 02/03/19 at 15:30 Acetaminophen (Tylenol Tab) 650 mg Q6H PRN PO .PAIN 1-3 OR TEMP; Start 02/03/19 at 15:30 Docusate Sodium (Colace) 100 mg Q12H PRN PO .CONSTIPATION; Start 02/03/19 at 15:30 Magnesium Hydroxide (Milk Of Mag) 30 ml DAILY PRN PO .CONSTIPATION; Start 02/03/19 at 15:30 Tamsulosin HCl (Flomax) 0.4 mg BID PO Last administered on 02/14/19 20:24; Admin Dose 0.4 MG; Start 02/04/19 at 09:00 Morphine Sulfate (morphine) 2 mg Q4H PRN IV SEVERE PAIN LEVEL 7-10 Last administered on 02/04/19 18:35; Admin Dose 2 MG; Start 02/03/19 at 16:30 Arformoterol Tartrate (Brovana (Neb)) 2 ml BID RESP THERAPY INH Last administered on 02/15/19 08:57; Admin Dose 2 ML; Start 02/03/19 at 22:00 Budesonide (Pulmicort (Neb)) 0.5 mg Q12H RESP THERAPY INH Last administered on 02/15/19 08:57; Admin Dose 0.5 MG; Start 02/03/19 at 22:00 Hydralazine HCl (Apresoline) 5 mg Q6H PRN IV ELEVATED BLOOD PRESSURE; Start 02/04/19 at 20:30 Nitroglycerin (Nitroglycerin (Sl Tab) 0.4 Mg) 1 tab Q5M PRN SL ANGINA Last administered on 02/05/19 10:29; Admin Dose 1 TAB; Start 02/05/19 at 10:30 Isosorbide Dinitrate (Isordil) 10 mg TID PO Last administered on 02/15/19 09:38; Admin Dose 10 MG; Start 02/05/19 at 21:00 Sucralfate (Carafate) 1 gm QID PO Last administered on 02/14/19 20:25; Admin Dose 1 GM; Start 02/08/19 at 13:30 Pantoprazole (Protonix Tab) 40 mg BID@0600,1800 PO Last administered on 02/15/19 05:53; Admin Dose 40 MG; Start 02/08/19 at 18:00 Ceftriaxone Sodium 50 ml @ 100 mls/hr Q24H IVPB Last administered on 02/15/19 09:37; Admin Dose 100 MLS/HR; Start 02/10/19 at 10:00 Assessment/Plan Hospital Course (Demo Recall) 1.Chest pain-minimal positive troponin in the setting of renal failure and severe anemia. Likely type 2 demand infarct. NO CP on medical therapy at this time. Had recurrent increase in setting of acute drop in hemoglobin/GIB and now downtrending s/p transfusion - no intervention planned now - HG > 9.4 now. 2.Cardiomyopathy-EF 40-45% by echo 11/04/18 - no indication for ICD 3.anemia-s/p transfusion and repeat endoscopy without findings of acute ongoing bleeding - GI follows 4.renal failure-acute on chronic - C 1.77 - keep euglycemic 5.PAD - treated 6. Duodenal ulcer by endoscopy this admit on PPI/sucralfate RICK PEREZ MD Feb 15, 2019 12:51
[2019-02-15] MEDS ORDERED: GUAIFENESIN/DM 5ML CUP PO PRN (16:00)
--- NOTE | 2019-02-15 16:09 | PN ---
Date/Time of Note Date/Time of Note DATE: 02/15/19 TIME: 16:04 Assessment/Plan VTE Prophylaxis Risk score (from Ns)>0 risk: 5 SCD applied (from [facility] [place]): No SCD contraindicated: low risk/ambulating Pharmacological prophylaxis: NA/contraindicated Pharm contraindication: bleeding Lines/Catheters IV [facility] Type [facility] Saline Lock Urinary Cath still in place: Yes Reason Cath still needed: urinary retention Assessment/Plan Hospital Course Hospitalist coverage Assessment and plan 1. Atypical chest pain no evidence of acute current syndrome. Treat pleurisy stable. 2. Pleurisy related to recent pneumonia stable observe 3. Acute renal failure, not at goal stable marcie nephrology assistance 4. COPD 5. Peripheral artery disease 6. Recent pneumonia last month left-sided 7. Past tobacco 8. Hypertension EF 40% 9. Type II AL/false positive troponin 10. Acute neuropathy Emerson catheter status. Line 11. Acute cystitis 12. MCI vs dementia. Family has refused Aricept 13. GI bleed/ Pud sp EGD [duodenal ulcer w visible vessel sp clip]. Repeat EGD w colonoscopy ok. GI bleeding scan -ve. Next step is CT Enterostomy? Subjective no distress or pain. I think he wants to go home. No active bleed. Diet? Emerson still required Objective: Vital signs stable Physical exam No pallor JVD Regular no mrg Clear Benign No edema Result Diagram: 02/15/19 0450 02/15/19 0450 Results 24hrs Laboratory Tests Test 02/15/19 04:50 White Blood Count 8.9 Red Blood Count 3.28 L Hemoglobin 9.4 L Hematocrit 28.9 L Mean Corpuscular Volume 88.1 Mean Corpuscular Hemoglobin 28.7 L Mean Corpuscular Hemoglobin Concent 32.5 Red Cell Distribution Width 17.6 H Platelet Count 270 Mean Platelet Volume 10.0 Immature Granulocytes % 1.000 H Neutrophils % 69.9 Lymphocytes % 15.9 Monocytes % 9.3 Eosinophils % 3.1 Basophils % 0.8 Nucleated Red Blood Cells % 0.0 Immature Granulocytes # 0.090 H Neutrophils # 6.2 Lymphocytes # 1.4 Monocytes # 0.8 Eosinophils # 0.3 Basophils # 0.1 Nucleated Red Blood Cells # 0.0 Sodium Level 143 Potassium Level 3.8 Chloride Level 109 Carbon Dioxide Level 28 Anion Gap 6 Blood Urea Nitrogen 24 H Creatinine 1.77 H Est Glomerular Filtrat Rate mL/min Glucose Level 91 Calcium Level 7.9 L Phosphorus Level 3.4 Magnesium Level 1.6 L Creatine Kinase 34 Creatine Kinase Index 3.7 Creatinine Kinase MB (Mass) 1.25 Troponin I 0.640 *H Exam/Review of Systems Exam Vitals Vital Signs Date Temp Pulse Resp B/P (MAP) Pulse Ox O2 O2 Flow FiO2 Time Delivery Rate 02/15/19 98.1 71 19 111/69 96 15:10 (83) 02/15/19 Nasal 3.0 09:50 Cannula 02/11/19 09:24 Intake and Output 02/14/19 02/14/19 02/15/19 1515:00 23:00 07:00 IntakeIntake Total 1570 ml 240 ml OutputOutput Total 950 ml 400 ml BalanceBalance 620 ml -160 ml Results Results 24hrs Laboratory Tests Test 02/15/19 04:50 White Blood Count 8.9 Red Blood Count 3.28 L Hemoglobin 9.4 L Hematocrit 28.9 L Mean Corpuscular Volume 88.1 Mean Corpuscular Hemoglobin 28.7 L Mean Corpuscular Hemoglobin Concent 32.5 Red Cell Distribution Width 17.6 H Platelet Count 270 Mean Platelet Volume 10.0 Immature Granulocytes % 1.000 H Neutrophils % 69.9 Lymphocytes % 15.9 Monocytes % 9.3 Eosinophils % 3.1 Basophils % 0.8 Nucleated Red Blood Cells % 0.0 Immature Granulocytes # 0.090 H Neutrophils # 6.2 Lymphocytes # 1.4 Monocytes # 0.8 Eosinophils # 0.3 Basophils # 0.1 Nucleated Red Blood Cells # 0.0 Sodium Level 143 Potassium Level 3.8 Chloride Level 109 Carbon Dioxide Level 28 Anion Gap 6 Blood Urea Nitrogen 24 H Creatinine 1.77 H Est Glomerular Filtrat Rate mL/min Glucose Level 91 Calcium Level 7.9 L Phosphorus Level 3.4 Magnesium Level 1.6 L Creatine Kinase 34 Creatine Kinase Index 3.7 Creatinine Kinase MB (Mass) 1.25 Troponin I 0.640 *H Medications Medication Current Medications Amlodipine Besylate (Norvasc) 10 mg DAILY PO Last administered on 02/15/19at 09:38; Admin Dose 10 MG; Start 02/04/19 at 09:00 Cyclosporine (Restasis) 1 drop Q12 BOTH EYES Last administered on 02/15/19at 09:37; Admin Dose 1 DROP; Start 02/03/19 at 21:00 Diclofenac Sodium (Voltaren 1% Gel) 2 gm QID TP Last administered on 02/14/19 20:25; Admin Dose 2 GM; Start 02/03/19 at 17:00 Metoprolol Succinate (Toprol Xl) 50 mg DAILY PO Last administered on 02/15/19 09:38; Admin Dose 50 MG; Start 02/04/19 at 09:00 Ranolazine (Ranexa) 500 mg Q12 PO Last administered on 02/14/19 20:25; Admin Dose 500 MG; Start 02/03/19 at 21:00 Tiotropium [place] (Spiriva) 1 inh DAILY INH Last administered on 02/12/19 12:47; Admin Dose 1 INH; Start 02/04/19 at 09:00 Levalbuterol (Xopenex Neb) 0.63 mg Q4H RESP THERAPY PRN HHN shortness of breath; Start 02/03/19 at 15:30 IV Flush (NS 3 ml) 3 ml PER PROTOCOL IV ; Start 02/03/19 at 15:30 Ondansetron HCl (Zofran Inj) 4 mg Q6H PRN IV NAUSEA/VOMITING; Start 02/03/19 at 15:30 Acetaminophen (Tylenol Tab) 650 mg Q6H PRN PO .PAIN 1-3 OR TEMP; Start 02/03/19 at 15:30 Docusate Sodium (Colace) 100 mg Q12H PRN PO .CONSTIPATION Last administered on 02/15/19 13:27; Admin Dose 100 MG; Start 02/03/19 at 15:30 Tamsulosin HCl (Flomax) 0.4 mg BID PO Last administered on 02/14/19 20:24; Admin Dose 0.4 MG; Start 02/04/19 at 09:00 Morphine Sulfate (morphine) 2 mg Q4H PRN IV SEVERE PAIN LEVEL 7-10 Last administered on 02/04/19 18:35; Admin Dose 2 MG; Start 02/03/19 at 16:30 Arformoterol Tartrate (Brovana (Neb)) 2 ml BID RESP THERAPY INH Last administered on 02/15/19 08:57; Admin Dose 2 ML; Start 02/03/19 at 22:00 Budesonide (Pulmicort (Neb)) 0.5 mg Q12H RESP THERAPY INH Last administered on 02/15/19at 08:57; Admin Dose 0.5 MG; Start 02/03/19 at 22:00 Hydralazine HCl (Apresoline) 5 mg Q6H PRN IV ELEVATED BLOOD PRESSURE; Start 02/04/19 at 20:30 Nitroglycerin (Nitroglycerin (Sl Tab) 0.4 Mg) 1 tab Q5M PRN SL ANGINA Last administered on 02/05/19at 10:29; Admin Dose 1 TAB; Start 02/05/19 at 10:30 Isosorbide Dinitrate (Isordil) 10 mg TID PO Last administered on 02/15/19at 13:28; Admin Dose 10 MG; Start 02/05/19 at 21:00 Sucralfate (Carafate) 1 gm QID PO Last administered on 02/15/19at 13:28; Admin Dose 1 GM; Start 02/08/19 at 13:30 Pantoprazole (Protonix Tab) 40 mg BID@0600,1800 PO Last administered on 02/15/19at 05:53; Admin Dose 40 MG; Start 02/08/19 at 18:00 Guaifenesin/ Dextromethorphan (Robitussin Dm Liquid Cup) 10 ml Q4H PRN PO COUGH; Start 02/15/19 at 16:00 CASS CALDWELL MD Feb 15, 2019 16:09
[2019-02-16] VITALS (7 sets, daily range): BP systolic 133–148; BP diastolic 72–79; PULSE 71–100; RESP 18–20
[2019-02-16] MEDS: PANTOPRAZOLE (EC) 40 MG TAB PO SCH (06:48)
[2019-02-16] MEDS: AMLODIPINE 10 MG TAB PO SCH (09:00)
[2019-02-16] MEDS: TAMSULOSIN (SR) 0.4 MG CAP PO SCH (09:00)
[2019-02-16] MEDS: RANOLAZINE (SR) 500 MG TAB PO SCH (09:00)
[2019-02-16] MEDS: SUCRALFATE 1 GM TAB PO SCH (09:00)
[2019-02-16] MEDS: ISOSORBIDE DINITRATE 10 MG TAB PO SCH (09:00)
[2019-02-16] MEDS: DICLOFENAC SODIUM 1% GEL 100 GM TUBE TP SCH (09:00)
[2019-02-16] MEDS: METOPROLOL (XL) 50 MG TAB PO SCH (09:00)
[2019-02-16] MEDS: CYCLOSPORINE 0.05% OPH DROPERETTE BOTH EYES SCH (09:00)
[2019-02-16] MEDS: TIOTROPIUM 18 MCG CAPSULE INHA DEV INH SCH (09:00)
--- NOTE | 2019-02-16 09:41 | CONS ---
Consult Date/Type/Reason Admit Date/Time Feb 03, 2019 at 14:25 Initial Consult Date 02/05/19 Requesting Provider: JAE DURAN MD Date/Time of Note DATE: 02/16/19 TIME: 09:39 Subjective no co. The patient is stable, no events overnight. sitter at bedside OBJECTIVE: HEENT: Head is normocephalic. NECK: Supple. HEART: Regular rate. LUNGS: Show diminished breath sounds at the base. ABDOMEN: Soft, nontender to palpation without rebound or guarding. EXTREMITIES: Negative for clubbing, cyanosis, no edema. DERMATOLOGIC: No rashes. MUSCULOSKELETAL: No joint effusion. NEUROLOGIC: No change in exam. MEDICATIONS: The patient's medications have been reviewed. Objective Vitals Vital Signs Date Temp Pulse Resp B/P (MAP) Pulse Ox O2 O2 Flow FiO2 Time Delivery Rate 02/16/19 100 09:10 02/16/19 97.6 20 141/79 97 Nasal 07:44 (99) Cannula 02/16/19 3.0 02:07 02/15/19 32 19:39 Intake and Output 02/15/19 02/15/19 02/16/19 1515:00 23:00 07:00 IntakeIntake Total 390 ml 120 ml OutputOutput Total 1300 ml 900 ml BalanceBalance 390 ml -1180 ml -900 ml Results/Medications Result Diagram: 02/16/19 0504 02/16/19 0504 Results 24 hrs Laboratory Tests Test 02/16/19 05:04 White Blood Count 7.5 Red Blood Count 3.25 L Hemoglobin 9.2 L Hematocrit 28.7 L Mean Corpuscular Volume 88.3 Mean Corpuscular Hemoglobin 28.3 L Mean Corpuscular Hemoglobin Concent 32.1 Red Cell Distribution Width 16.9 H Platelet Count 265 Mean Platelet Volume 9.7 Immature Granulocytes % 0.700 H Neutrophils % 69.3 Lymphocytes % 17.1 Monocytes % 8.0 Eosinophils % 4.1 Basophils % 0.8 Nucleated Red Blood Cells % 0.0 Immature Granulocytes # 0.050 H Neutrophils # 5.2 Lymphocytes # 1.3 Monocytes # 0.6 Eosinophils # 0.3 Basophils # 0.1 Nucleated Red Blood Cells # 0.0 Sodium Level 143 Potassium Level 3.7 Chloride Level 108 Carbon Dioxide Level 29 Anion Gap 6 Blood Urea Nitrogen 19 Creatinine 1.51 H Est Glomerular Filtrat Rate mL/min Glucose Level 91 Calcium Level 7.7 L Phosphorus Level 3.8 Magnesium Level 1.8 Total Bilirubin 0.3 Direct Bilirubin 0.00 Indirect Bilirubin 0.3 Aspartate Amino Transf (AST/SGOT) 22 Alanine Aminotransferase (ALT/SGPT) 22 Alkaline Phosphatase 62 Total Protein 4.9 L Albumin 2.2 L Globulin 2.70 Albumin/Globulin Ratio 0.81 Thyroid Stimulating Hormone (TSH) Pending Home Meds Active Scripts Tiotropium [place]* (Spiriva*) 18 Mcg Cap.w.dev, 1 CAP INHALATION DAILY, #30 CAP 1 Refill Prov:MARC GLORIA 01/27/19 Reported Medications Naproxen* (Naproxen*) 500 Mg Tablet, 500 MG PO BID PRN for PAIN, TAB 01/20/19 Diclofenac Sodium* (Voltaren* Gel) 1% -100 Gm Gel, 2 GM TOP QID, #1 TUB 01/20/19 Budesonide-Formoterol Fumarate* (Symbicort*) 160-4.5 Hfa.aer.ad, 2 PUFF INHALATION BID, #1 EACH 01/20/19 Cyclosporine (RESTASIS) 1 Each Droperette, 1 DROP BOTH EYES Q12, #1 BOX 01/20/19 Ranolazine* (Ranexa*) 500 Mg Tab.sr.12h, 500 MG PO Q12, TAB 01/20/19 Tamsulosin Hcl* (Flomax*) 0.4 Mg Cap.er.24h, 0.4 MG PO DAILY, CAP 01/20/19 Linaclotide (LINZESS) 145 Mcg Capsule, 145 MCG PO DAILY, #30 CAP 01/20/19 Nebivolol Hcl* (Bystolic*) 10 Mg Tablet, 10 MG PO DAILY, #30 TAB 01/20/19 Omeprazole* (Omeprazole*) 20 Mg Capsule.dr, 20 MG PO DAILY, #30 CAP 01/20/19 Donepezil* (Aricept*) 5 Mg Tablet, 5 MG PO DAILY, TAB 01/20/19 Meloxicam* (Meloxicam*) 7.5 Mg Tablet, 7.5 MG PO DAILY, #30 TAB 01/20/19 Aspirin (Low Dose Aspirin) 81 Mg Tablet.dr, 81 MG PO DAILY, #30 TAB 01/20/19 Amlodipine Besylate* (Amlodipine Besylate*) 10 Mg Tablet, 10 MG PO DAILY, #30 TAB 01/20/19 Metoprolol Succinate* (Toprol XL*) 50 Mg Tab.er.24h, 50 MG PO DAILY, #30 TAB 01/20/19 Pentoxifylline* (Pentoxifylline*) 400 Mg Tablet.sa, 400 MG PO WITH MEALS, TAB 01/20/19 Medications Current Medications Amlodipine Besylate (Norvasc) 10 mg DAILY PO Last administered on 02/15/19 09:38; Admin Dose 10 MG; Start 02/04/19 at 09:00 Cyclosporine (Restasis) 1 drop Q12 BOTH EYES Last administered on 02/15/19 09:37; Admin Dose 1 DROP; Start 02/03/19 at 21:00 Diclofenac Sodium (Voltaren 1% Gel) 2 gm QID TP Last administered on 02/14/19 20:25; Admin Dose 2 GM; Start 02/03/19 at 17:00 Metoprolol Succinate (Toprol Xl) 50 mg DAILY PO Last administered on 02/15/19 09:38; Admin Dose 50 MG; Start 02/04/19 at 09:00 Ranolazine (Ranexa) 500 mg Q12 PO Last administered on 02/15/19 21:29; Admin Dose 500 MG; Start 02/03/19 at 21:00 Tiotropium [place] (Spiriva) 1 inh DAILY INH Last administered on 02/12/19 12:47; Admin Dose 1 INH; Start 02/04/19 at 09:00 Levalbuterol (Xopenex Neb) 0.63 mg Q4H RESP THERAPY PRN HHN shortness of breath; Start 02/03/19 at 15:30 IV Flush (NS 3 ml) 3 ml PER PROTOCOL IV ; Start 02/03/19 at 15:30 Ondansetron HCl (Zofran Inj) 4 mg Q6H PRN IV NAUSEA/VOMITING; Start 02/03/19 at 15:30 Acetaminophen (Tylenol Tab) 650 mg Q6H PRN PO .PAIN 1-3 OR TEMP; Start 02/03/19 at 15:30 Docusate Sodium (Colace) 100 mg Q12H PRN PO .CONSTIPATION Last administered on 02/15/19 13:27; Admin Dose 100 MG; Start 02/03/19 at 15:30 Tamsulosin HCl (Flomax) 0.4 mg BID PO Last administered on 02/15/19 21:28; Admin Dose 0.4 MG; Start 02/04/19 at 09:00 Morphine Sulfate (morphine) 2 mg Q4H PRN IV SEVERE PAIN LEVEL 7-10 Last administered on 02/04/19at 18:35; Admin Dose 2 MG; Start 02/03/19 at 16:30 Arformoterol Tartrate (Brovana (Neb)) 2 ml BID RESP THERAPY INH Last administered on 02/15/19 19:37; Admin Dose 2 ML; Start 02/03/19 at 22:00 Budesonide (Pulmicort (Neb)) 0.5 mg Q12H RESP THERAPY INH Last administered on 02/15/19 19:45; Admin Dose 0.5 MG; Start 02/03/19 at 22:00 Hydralazine HCl (Apresoline) 5 mg Q6H PRN IV ELEVATED BLOOD PRESSURE; Start 02/04/19 at 20:30 Nitroglycerin (Nitroglycerin (Sl Tab) 0.4 Mg) 1 tab Q5M PRN SL ANGINA Last administered on 02/05/19at 10:29; Admin Dose 1 TAB; Start 02/05/19 at 10:30 Isosorbide Dinitrate (Isordil) 10 mg TID PO Last administered on 02/15/19at 21:30; Admin Dose 10 MG; Start 02/05/19 at 21:00 Sucralfate (Carafate) 1 gm QID PO Last administered on 02/15/19at 21:30; Admin Dose 1 GM; Start 02/08/19 at 13:30 Pantoprazole (Protonix Tab) 40 mg BID@0600,1800 PO Last administered on 02/16/19at 06:48; Admin Dose 40 MG; Start 02/08/19 at 18:00 Guaifenesin/ Dextromethorphan (Robitussin Dm Liquid Cup) 10 ml Q4H PRN PO COUGH; Start 02/15/19 at 16:00 Assessment/Plan Hospital Course (Demo Recall) 1. Nonoliguric acute kidney injury with previous baseline creatinine 2.0 mg/dL. Etiology of MARTHA is likely hemodynamic Renal function is improved, currently at baseline (below baseline). - watch for diuretic phase of martha. 2. Urinary retention, obstructive uropathy, improved after Emerson catheter placement, 3. Anemia secondary to peptic ulcer disease. The patient is status post multiple EGDs. Continue to monitor hemoglobin and hematocrit levels. Continue proton pump inhibitor. 4. Mineral bone disorder. Monitor calcium and phosphorus levels. 5. Sepsis. 6. History of COPD. 7. Hypertension. Continue current blood pressure regimen. 9. History of heart failure, currently compensated. Continue current meds. 10. History of peripheral vascular disease. 11. Elevated troponin. Likely non-STEMI, type 2. Continue to monitor. Follow up with cardiology. TRACY MARTINEZ MD Feb 16, 2019 09:41
[2019-02-16] MEDS: BUDESONIDE (NEB) 0.5MG/2ML AMP INH SCH (10:44)
[2019-02-16] MEDS: ARFORMOTEROL TARTRATE 15MCG/2 ML AMP INH SCH (10:44)
--- NOTE | 2019-02-16 15:59 | DS ---
Date/Time of Note Date/Time of Note DATE: 02/16/19 TIME: 15:55 Discharge Summary Admission/Discharge Info Admit Date/Time Feb 03, 2019 at 14:25 Discharge Date/Time Feb 16, 2019 at 12:50 Patient Condition: Fair Consults Gastroenterology Nephrology Procedures EGD COLONOSCOPY Hx of Present Illness 83-year-old gentleman admitted with failure to thrive Hospital Course Hospitalist coverage/hospital course initially seen with atypical chest pain. Ruled out for ACS by enzymes EKG symptoms. The troponin is type II false-positive in nature. Evaluating his labs revealed anemia. Patient was seen by GI. He did have peptic ulcer disease. Concern to repeat GI bleed, patient had colonoscopy then repeat EGD. Then bleeding scan. A CT eval of small bowel was the next plan of management. Unfortunately the patient left AMA today. Evaluating his labs revealed acute renal failure. Renal function has improved. 1.51.7 is creatinine. Assessment and plan 1. Atypical chest pain no evidence of acute current syndrome. Treat pleurisy stable. 2. Pleurisy related to recent pneumonia stable observe 3. Acute renal failure, improved, marcie nephrology assistance 4. COPD 5. Peripheral artery disease 6. Recent pneumonia last month left-sided 7. Past tobacco 8. Hypertension EF 40% 9. Type II ND/false positive troponin 10. Acute neuropathy Emerson catheter status.. Emerson removed on AMA 11. Acute cystitis 12. MCI vs dementia. Family has refused Aricept 13. GI bleed/ Pud sp EGD [duodenal ulcer w visible vessel sp clip]. Repeat EGD w colonoscopy ok. GI bleeding scan -ve. Next step is CT Enterostomy? Home Meds Active Scripts Tiotropium [place]* (Spiriva*) 18 Mcg Cap.w.dev, 1 CAP INHALATION DAILY, #30 CAP 1 Refill Prov:MARC GLORIA 01/27/19 Reported Medications Naproxen* (Naproxen*) 500 Mg Tablet, 500 MG PO BID PRN for PAIN, TAB 01/20/19 Diclofenac Sodium* (Voltaren* Gel) 1% -100 Gm Gel, 2 GM TOP QID, #1 TUB 01/20/19 Budesonide-Formoterol Fumarate* (Symbicort*) 160-4.5 Hfa.aer.ad, 2 PUFF INHALATION BID, #1 EACH 01/20/19 Cyclosporine (RESTASIS) 1 Each Droperette, 1 DROP BOTH EYES Q12, #1 BOX 01/20/19 Ranolazine* (Ranexa*) 500 Mg Tab.sr.12h, 500 MG PO Q12, TAB 01/20/19 Tamsulosin Hcl* (Flomax*) 0.4 Mg Cap.er.24h, 0.4 MG PO DAILY, CAP 01/20/19 Linaclotide (LINZESS) 145 Mcg Capsule, 145 MCG PO DAILY, #30 CAP 01/20/19 Nebivolol Hcl* (Bystolic*) 10 Mg Tablet, 10 MG PO DAILY, #30 TAB 01/20/19 Omeprazole* (Omeprazole*) 20 Mg Capsule.dr, 20 MG PO DAILY, #30 CAP 01/20/19 Donepezil* (Aricept*) 5 Mg Tablet, 5 MG PO DAILY, TAB 01/20/19 Meloxicam* (Meloxicam*) 7.5 Mg Tablet, 7.5 MG PO DAILY, #30 TAB 01/20/19 Aspirin (Low Dose Aspirin) 81 Mg Tablet.dr, 81 MG PO DAILY, #30 TAB 01/20/19 Amlodipine Besylate* (Amlodipine Besylate*) 10 Mg Tablet, 10 MG PO DAILY, #30 TAB 01/20/19 Metoprolol Succinate* (Toprol XL*) 50 Mg Tab.er.24h, 50 MG PO DAILY, #30 TAB 01/20/19 Pentoxifylline* (Pentoxifylline*) 400 Mg Tablet.sa, 400 MG PO WITH MEALS, TAB 01/20/19 Primary Care Provider Not On Staff Doctor Time spent on discharge: > 30 minutes Pending Labs Laboratory Tests Test 02/16/19 05:04 White Blood Count 7.5 10^3/ul (4.8-10.8) Red Blood Count 3.25 10^6/ul (4.70-6.10) Hemoglobin 9.2 g/dl (14.0-18.0) Hematocrit 28.7 % (42.0-52.0) Mean Corpuscular Volume 88.3 fl (82.0-101.0) Mean Corpuscular Hemoglobin 28.3 pg (29.0-33.0) Mean Corpuscular Hemoglobin Concent 32.1 g/dl (32.0-37.0) Red Cell Distribution Width 16.9 % (11.5-14.5) Platelet Count 265 10^3/UL (140-415) Mean Platelet Volume 9.7 fl (7.4-10.4) Immature Granulocytes % 0.700 % (0.001-0.429) Neutrophils % 69.3 % (39.0-77.0) Lymphocytes % 17.1 % (15.0-51.0) Monocytes % 8.0 % (0.0-11.0) Eosinophils % 4.1 % (0.0-7.0) Basophils % 0.8 % (0.0-2.0) Nucleated Red Blood Cells % 0.0 /100WBC (0.0-0.0) Immature Granulocytes # 0.050 10^3/ul (0.0-0.031) Neutrophils # 5.2 10^3/ul (1.6-7.5) Lymphocytes # 1.3 10^3/ul (0.8-2.9) Monocytes # 0.6 10^3/ul (0.3-0.9) Eosinophils # 0.3 10^3/ul (0.0-0.5) Basophils # 0.1 10^3/ul (0.0-0.1) Nucleated Red Blood Cells # 0.0 10^3/ul (0.0-0.0) Sodium Level 143 mmol/L (135-144) Potassium Level 3.7 mmol/L (3.5-5.1) Chloride Level 108 mmol/L (97-110) Carbon Dioxide Level 29 mmol/L (21-31) Anion Gap 6 (5-13) Blood Urea Nitrogen 19 mg/dl (7-20) Creatinine 1.51 mg/dl (0.61-1.24) Est Glomerular Filtrat Rate mL/min mL/min (>60) Glucose Level 91 mg/dl (70-220) Calcium Level 7.7 mg/dl (8.4-10.2) Phosphorus Level 3.8 mg/dl (2.5-4.9) Magnesium Level 1.8 mg/dl (1.7-2.5) Total Bilirubin 0.3 mg/dl (0.2-1.3) Direct Bilirubin 0.00 mg/dl (0.00-0.20) Indirect Bilirubin 0.3 mg/dl (0-1.1) Aspartate Amino Transf (AST/SGOT) 22 IU/L (15-46) Alanine Aminotransferase (ALT/SGPT) 22 IU/L (13-69) Alkaline Phosphatase 62 IU/L (42-121) Total Protein 4.9 g/dl (6.1-8.1) Albumin 2.2 g/dl (3.3-4.9) Globulin 2.70 g/dl (1.3-3.2) Albumin/Globulin Ratio 0.81 Thyroid Stimulating Hormone (TSH) 2.950 MIU/L (0.465-4.680) ACSS CALDWELL MD Feb 16, 2019 15:59
== END 2019-02-16 12:50 | disposition left against medical advice (07) | DRG 377 ==
LOC: E/R 11:08 → 6WM 14:25
PROVIDERS: ADMIT Internal Medicine; ATTEND Internal Medicine
PROC: 30233N1 Transfusion of Nonautologous Red Blood Cells into Peripheral Vein, Percutaneous Approach (ICD-10-PCS; 2019-02-04)
PROC: 0DB68ZX Excision of Stomach, Via Natural or Artificial Opening Endoscopic, Diagnostic (ICD-10-PCS; principal; 2019-02-06 17:30)
PROC: 0DJD8ZZ Inspection of Lower Intestinal Tract, Via Natural or Artificial Opening Endoscopic (ICD-10-PCS; 2019-02-06 17:30)
PROC: 0DJ08ZZ Inspection of Upper Intestinal Tract, Via Natural or Artificial Opening Endoscopic (ICD-10-PCS; 2019-02-11)
PROC: 0W3P8ZZ Control Bleeding in Gastrointestinal Tract, Via Natural or Artificial Opening Endoscopic (ICD-10-PCS; 2019-02-11)
PROC: 0DBK8ZX Excision of Ascending Colon, Via Natural or Artificial Opening Endoscopic, Diagnostic (ICD-10-PCS; 2019-02-12)
PROC: 0DBN8ZX Excision of Sigmoid Colon, Via Natural or Artificial Opening Endoscopic, Diagnostic (ICD-10-PCS; 2019-02-12)
PROC: 0DJ08ZZ Inspection of Upper Intestinal Tract, Via Natural or Artificial Opening Endoscopic (ICD-10-PCS; 2019-02-12)
DX: K26.4 Chronic or unspecified duodenal ulcer with hemorrhage (principal); J18.9 Pneumonia, unspecified organism; G92 Toxic encephalopathy; N39.0 Urinary tract infection, site not specified; N17.9 Acute kidney failure, unspecified; N18.4 Chronic kidney disease, stage 4 (severe); I13.0 Hypertensive heart and chronic kidney disease with heart failure and stage 1 through stage 4 chronic kidney disease, or unspecified chronic kidney disease; I50.22 Chronic systolic (congestive) heart failure; D62 Acute posthemorrhagic anemia; I42.9 Cardiomyopathy, unspecified; E87.0 Hyperosmolality and hypernatremia; E87.2 Acidosis; K22.10 Ulcer of esophagus without bleeding; K25.9 Gastric ulcer, unspecified as acute or chronic, without hemorrhage or perforation; E87.5 Hyperkalemia; K26.9 Duodenal ulcer, unspecified as acute or chronic, without hemorrhage or perforation; N40.0 Benign prostatic hyperplasia without lower urinary tract symptoms; J44.9 Chronic obstructive pulmonary disease, unspecified; E11.51 Type 2 diabetes mellitus with diabetic peripheral angiopathy without gangrene; E83.9 Disorder of mineral metabolism, unspecified; I25.10 Atherosclerotic heart disease of native coronary artery without angina pectoris; K29.70 Gastritis, unspecified, without bleeding; N13.9 Obstructive and reflux uropathy, unspecified; F03.90 Unspecified dementia, unspecified severity, without behavioral disturbance, psychotic disturbance, mood disturbance, and anxiety; K63.5 Polyp of colon; K64.8 Other hemorrhoids
CPT/HCPCS: 36430; 71045; 76775; 78278; 80048; 80053; 80069; 81001; 81003; 82043; 82270; 82550; 82553; 82962; 83690; 83735; 83880; 84100; 84155; 84300; 84443; 84484; 85014; 85018; 85025; 85610; 86850; 86900; 86901; 86920; 87086; 88305; 93005; 94640; 94664; 97116; 97162; 97166; 97530; 97535; A9560; C9113; J0692; J0696; J1644; J1815; J2001; J2060; J2270; J2354; J3010; J3370; J3475; J7030; J7040; J7050; P9016

== ENCOUNTER 2019-05-06 15:40 | Emergency (ER) | payer MEDICARE, OTHER ==
[~2019-05-06] VITALS: Wt 59.1 kg
[~2019-05-06 15:40] MED LIST changes: +ACET-141 PO; +APIX2.5T PO; +ATOR40TA68 PO; +CARV6.2579 PO; +CLOP75TA28 PO; +DOCU-216 PO; +FURO40TA4 PO; +Nicotine (14 Mg/24 Hr) TRANSDERM; -OMEP20CA16 PO; +OMEP20CA17 PO; +PENT400T12 PO; -PENT400T9 PO; +PRED20TA PO
[2019-05-06] MEDS ORDERED: KETOROLAC 15 MG INJ IM STA (18:07)
[2019-05-06 18:25] VITALS: BP 149/78; PULSE 70; RESP 18
== END 2019-05-06 18:25 | disposition home or self-care (01) ==
LOC: FTE 15:40
DX: M25.531 Pain in right wrist (principal); I11.0 Hypertensive heart disease with heart failure; I13.0 Hypertensive heart and chronic kidney disease with heart failure and stage 1 through stage 4 chronic kidney disease, or unspecified chronic kidney disease; N18.9 Chronic kidney disease, unspecified; I50.9 Heart failure, unspecified; J44.9 Chronic obstructive pulmonary disease, unspecified; Z79.82 Long term (current) use of aspirin
CPT/HCPCS: 73110; 73130; 96372; 99284; J1885